=== PATIENT | female | born 1960 | race Caucasian/White ===

== ENCOUNTER 2018-03-02 10:55 | Outpatient (RCR) | payer MEDICARE, OTHER ==
[2018-01-13 11:23] LABS: BASOPHILS % (AUTO) 0 % (0-10); EOSINOPHILS # (AUTO) 0.2 10^3/uL (0.0-0.3); EOSINOPHILS % (AUTO) 4 % (0-10); HEMATOCRIT 35 % (35-52); HEMOGLOBIN 11.5 G/DL (11.5-16.0); LYMPHOCYTES # (AUTO) 1.6 X 10^3 (1.0-4.0); LYMPHOCYTES % (AUTO) 33 % (12-44); MEAN CORPUSCULAR HEMOGLOBIN 31 PG (25-34); MEAN CORPUSCULAR HGB CONC 33 G/DL (32-36); MEAN CORPUSCULAR VOLUME 95 FL (80-99); MEAN PLATELET VOLUME 9.3 FL (7.4-10.4); MONOCYTES # (AUTO) 0.2 X 10^3 (0.0-1.0); MONOCYTES % (AUTO) 5 % (0-12); NEUTROPHILS # (AUTO) 2.7 X 10^3 (1.8-7.8); NEUTROPHILS % (AUTO) 57 % (42-75); PLATELET COUNT 293 10^3/uL (130-400); RED CELL DISTRIBUTION WIDTH 15.2 % (10.0-14.5); WHITE BLOOD COUNT 4.7 10^3/uL (4.3-11.0)
[2018-01-13 11:49] LABS: ALANINE AMINOTRANSFERASE 19 U/L (0-55); ALBUMIN 4.5 GM/DL (3.2-4.5); ALKALINE PHOSPHATASE 91 U/L (40-136); BILIRUBIN,TOTAL 0.4 MG/DL (0.1-1.0); BUN/CREATININE RATIO 14; CALCIUM 9.5 MG/DL (8.5-10.1); CARBON DIOXIDE 23 MMOL/L (21-32); CHLORIDE 106 MMOL/L (98-107); CREATININE SERUM 0.85 MG/DL (0.60-1.30); GFR ESTIMATED > 60; GLUCOSE 95 MG/DL (70-105); POTASSIUM 4.1 MMOL/L (3.6-5.0); SODIUM 137 MMOL/L (135-145); TOTAL PROTEIN 7.8 GM/DL (6.4-8.2)
[2018-01-26 09:16] LABS: BASOPHILS % (AUTO) 1 % (0-10); EOSINOPHILS # (AUTO) 0.1 10^3/uL (0.0-0.3); EOSINOPHILS % (AUTO) 3 % (0-10); HEMATOCRIT 32 % (35-52); HEMOGLOBIN 10.5 G/DL (11.5-16.0); LYMPHOCYTES # (AUTO) 1.2 X 10^3 (1.0-4.0); LYMPHOCYTES % (AUTO) 47 % (12-44); MEAN CORPUSCULAR HEMOGLOBIN 32 PG (25-34); MEAN CORPUSCULAR HGB CONC 33 G/DL (32-36); MEAN CORPUSCULAR VOLUME 95 FL (80-99); MEAN PLATELET VOLUME 9.1 FL (7.4-10.4); MONOCYTES # (AUTO) 0.2 X 10^3 (0.0-1.0); MONOCYTES % (AUTO) 6 % (0-12); NEUTROPHILS # (AUTO) 1.1 X 10^3 (1.8-7.8); NEUTROPHILS % (AUTO) 43 % (42-75); PLATELET COUNT 169 10^3/uL (130-400); RED BLOOD COUNT 3.33 10^6/uL (4.35-5.85); RED CELL DISTRIBUTION WIDTH 15.9 % (10.0-14.5); WHITE BLOOD COUNT 2.6 10^3/uL (4.3-11.0)
[2018-01-26 09:35] LABS: ALANINE AMINOTRANSFERASE 15 U/L (0-55); ALBUMIN 4.2 GM/DL (3.2-4.5); ALKALINE PHOSPHATASE 77 U/L (40-136); BILIRUBIN,TOTAL 0.4 MG/DL (0.1-1.0); BUN/CREATININE RATIO 15; CALCIUM 9.5 MG/DL (8.5-10.1); CARBON DIOXIDE 23 MMOL/L (21-32); CHLORIDE 103 MMOL/L (98-107); CREATININE SERUM 0.94 MG/DL (0.60-1.30); GFR ESTIMATED > 60; GLUCOSE 103 MG/DL (70-105); POTASSIUM 3.7 MMOL/L (3.6-5.0); SODIUM 135 MMOL/L (135-145); TOTAL PROTEIN 7.3 GM/DL (6.4-8.2)
[2018-02-09 13:10] LABS: BASOPHILS % (AUTO) 1 % (0-10); EOSINOPHILS # (AUTO) 0.1 10^3/uL (0.0-0.3); EOSINOPHILS % (AUTO) 2 % (0-10); HEMATOCRIT 33 % (35-52); HEMOGLOBIN 11.1 G/DL (11.5-16.0); LYMPHOCYTES # (AUTO) 1.5 X 10^3 (1.0-4.0); LYMPHOCYTES % (AUTO) 37 % (12-44); MEAN CORPUSCULAR HEMOGLOBIN 32 PG (25-34); MEAN CORPUSCULAR HGB CONC 34 G/DL (32-36); MEAN CORPUSCULAR VOLUME 94 FL (80-99); MEAN PLATELET VOLUME 9.2 FL (7.4-10.4); MONOCYTES # (AUTO) 0.4 X 10^3 (0.0-1.0); MONOCYTES % (AUTO) 9 % (0-12); NEUTROPHILS % (AUTO) 51 % (42-75); PLATELET COUNT 263 10^3/uL (130-400); RED BLOOD COUNT 3.51 10^6/uL (4.35-5.85); RED CELL DISTRIBUTION WIDTH 17.2 % (10.0-14.5); WHITE BLOOD COUNT 3.9 10^3/uL (4.3-11.0)
[2018-02-09 13:30] LABS: ALANINE AMINOTRANSFERASE 18 U/L (0-55); ALBUMIN 4.5 GM/DL (3.2-4.5); ALKALINE PHOSPHATASE 65 U/L (40-136); BILIRUBIN,TOTAL 0.4 MG/DL (0.1-1.0); BUN/CREATININE RATIO 13; CALCIUM 9.4 MG/DL (8.5-10.1); CARBON DIOXIDE 19 MMOL/L (21-32); CHLORIDE 106 MMOL/L (98-107); CREATININE SERUM 0.84 MG/DL (0.60-1.30); GFR ESTIMATED > 60; GLUCOSE 99 MG/DL (70-105); POTASSIUM 3.7 MMOL/L (3.6-5.0); SODIUM 137 MMOL/L (135-145); TOTAL PROTEIN 7.8 GM/DL (6.4-8.2)
[~2018-03-02 10:55] MED LIST: FULVESTRANT 250 MG/5 ML SYR (CANCER CENTER) IM SCH
== END 2018-03-02 10:56 | disposition home or self-care (01) ==
LOC: ONC 10:55
PROVIDERS: ATTEND Internal Medicine Hematology & Oncology
DX: C50.111 Malignant neoplasm of central portion of right female breast (principal); C79.51 Secondary malignant neoplasm of bone; C78.6 Secondary malignant neoplasm of retroperitoneum and peritoneum; Z90.11 Acquired absence of right breast and nipple; Z90.79 Acquired absence of other genital organ(s); Z79.899 Other long term (current) drug therapy
CPT/HCPCS: 36415; 80053; 85025; 86300; 96402; 99213

== ENCOUNTER 2018-05-13 13:39 | Outpatient (RCR) | payer MEDICARE, OTHER ==
[2018-03-02 11:21] LABS: BASOPHILS % (AUTO) 1 % (0-10); EOSINOPHILS % (AUTO) 1 % (0-10); HEMATOCRIT 34 % (35-52); HEMOGLOBIN 10.9 G/DL (11.5-16.0); LYMPHOCYTES # (AUTO) 1.2 X 10^3 (1.0-4.0); LYMPHOCYTES % (AUTO) 46 % (12-44); MEAN CORPUSCULAR HEMOGLOBIN 31 PG (25-34); MEAN CORPUSCULAR HGB CONC 32 G/DL (32-36); MEAN CORPUSCULAR VOLUME 96 FL (80-99); MONOCYTES # (AUTO) 0.2 X 10^3 (0.0-1.0); MONOCYTES % (AUTO) 7 % (0-12); NEUTROPHILS # (AUTO) 1.1 X 10^3 (1.8-7.8); NEUTROPHILS % (AUTO) 45 % (42-75); PLATELET COUNT 204 10^3/uL (130-400); RED CELL DISTRIBUTION WIDTH 18.5 % (10.0-14.5); WHITE BLOOD COUNT 2.5 10^3/uL (4.3-11.0)
[2018-03-02 11:33] LABS: ALANINE AMINOTRANSFERASE 19 U/L (0-55); ALBUMIN 4.4 GM/DL (3.2-4.5); ALKALINE PHOSPHATASE 59 U/L (40-136); BILIRUBIN,TOTAL 0.4 MG/DL (0.1-1.0); BUN/CREATININE RATIO 14; CALCIUM 9.4 MG/DL (8.5-10.1); CARBON DIOXIDE 22 MMOL/L (21-32); CHLORIDE 106 MMOL/L (98-107); CREATININE SERUM 0.85 MG/DL (0.60-1.30); GFR ESTIMATED > 60; GLUCOSE 94 MG/DL (70-105); POTASSIUM 4.1 MMOL/L (3.6-5.0); SODIUM 137 MMOL/L (135-145); TOTAL PROTEIN 7.5 GM/DL (6.4-8.2)
[2018-04-09 10:16] LABS: BASOPHILS % (AUTO) 1 % (0-10); EOSINOPHILS # (AUTO) 0.1 10^3/uL (0.0-0.3); EOSINOPHILS % (AUTO) 2 % (0-10); HEMATOCRIT 32 % (35-52); HEMOGLOBIN 10.5 G/DL (11.5-16.0); LYMPHOCYTES # (AUTO) 1.5 X 10^3 (1.0-4.0); LYMPHOCYTES % (AUTO) 42 % (12-44); MEAN CORPUSCULAR HEMOGLOBIN 32 PG (25-34); MEAN CORPUSCULAR HGB CONC 33 G/DL (32-36); MEAN CORPUSCULAR VOLUME 96 FL (80-99); MEAN PLATELET VOLUME 9.1 FL (7.4-10.4); MONOCYTES # (AUTO) 0.5 X 10^3 (0.0-1.0); MONOCYTES % (AUTO) 13 % (0-12); NEUTROPHILS # (AUTO) 1.5 X 10^3 (1.8-7.8); NEUTROPHILS % (AUTO) 42 % (42-75); PLATELET COUNT 233 10^3/uL (130-400); RED CELL DISTRIBUTION WIDTH 18.5 % (10.0-14.5); WHITE BLOOD COUNT 3.6 10^3/uL (4.3-11.0)
[2018-04-09 10:45] LABS: ALANINE AMINOTRANSFERASE 14 U/L (0-55); ALBUMIN 4.2 GM/DL (3.2-4.5); ALKALINE PHOSPHATASE 47 U/L (40-136); BILIRUBIN,TOTAL 0.4 MG/DL (0.1-1.0); BUN/CREATININE RATIO 15; CALCIUM 9.6 MG/DL (8.5-10.1); CARBON DIOXIDE 24 MMOL/L (21-32); CREATININE SERUM 0.81 MG/DL (0.60-1.30); GFR ESTIMATED > 60; GLUCOSE 102 MG/DL (70-105); TOTAL PROTEIN 7.4 GM/DL (6.4-8.2)
[2018-04-09 11:10] LABS: CHLORIDE 104 MMOL/L (98-107); POTASSIUM 4.2 MMOL/L (3.6-5.0); SODIUM 136 MMOL/L (135-145)
[2018-04-30 10:11] LABS: BASOPHILS % (AUTO) 1 % (0-10); EOSINOPHILS # (AUTO) 0.1 10^3/uL (0.0-0.3); EOSINOPHILS % (AUTO) 4 % (0-10); HEMATOCRIT 31 % (35-52); HEMOGLOBIN 10.3 G/DL (11.5-16.0); LYMPHOCYTES # (AUTO) 1.1 X 10^3 (1.0-4.0); LYMPHOCYTES % (AUTO) 43 % (12-44); MEAN CORPUSCULAR HEMOGLOBIN 33 PG (25-34); MEAN CORPUSCULAR HGB CONC 33 G/DL (32-36); MEAN CORPUSCULAR VOLUME 98 FL (80-99); MEAN PLATELET VOLUME 9.2 FL (7.4-10.4); MONOCYTES # (AUTO) 0.2 X 10^3 (0.0-1.0); MONOCYTES % (AUTO) 7 % (0-12); NEUTROPHILS # (AUTO) 1.1 X 10^3 (1.8-7.8); NEUTROPHILS % (AUTO) 46 % (42-75); PLATELET COUNT 166 10^3/uL (130-400); RED CELL DISTRIBUTION WIDTH 17.4 % (10.0-14.5); WHITE BLOOD COUNT 2.5 10^3/uL (4.3-11.0)
[2018-04-30 10:30] LABS: ALBUMIN 4.3 GM/DL (3.2-4.5); BILIRUBIN,TOTAL 0.4 MG/DL (0.1-1.0); CALCIUM 9.7 MG/DL (8.5-10.1); TOTAL PROTEIN 7.2 GM/DL (6.4-8.2)
[2018-05-06 13:48] LABS: BASOPHILS # (AUTO) 0.1 10^3/uL (0.0-0.1); BASOPHILS % (AUTO) 1 % (0-10); EOSINOPHILS # (AUTO) 0.1 10^3/uL (0.0-0.3); EOSINOPHILS % (AUTO) 1 % (0-10); HEMATOCRIT 33 % (35-52); HEMOGLOBIN 10.8 G/DL (11.5-16.0); LYMPHOCYTES # (AUTO) 1.4 X 10^3 (1.0-4.0); LYMPHOCYTES % (AUTO) 40 % (12-44); MEAN CORPUSCULAR HEMOGLOBIN 33 PG (25-34); MEAN CORPUSCULAR HGB CONC 33 G/DL (32-36); MEAN CORPUSCULAR VOLUME 99 FL (80-99); MEAN PLATELET VOLUME 9.1 FL (7.4-10.4); MONOCYTES # (AUTO) 0.4 X 10^3 (0.0-1.0); MONOCYTES % (AUTO) 12 % (0-12); NEUTROPHILS # (AUTO) 1.6 X 10^3 (1.8-7.8); NEUTROPHILS % (AUTO) 46 % (42-75); PLATELET COUNT 200 10^3/uL (130-400); RED CELL DISTRIBUTION WIDTH 17.7 % (10.0-14.5); WHITE BLOOD COUNT 3.5 10^3/uL (4.3-11.0)
[~2018-05-13 13:39] MED LIST changes: +NS IV 1000 ML (CANCER CTR) 1,000 ML ONE
[2018-05-13 14:05] LABS: BASOPHILS % (AUTO) 1 % (0-10); EOSINOPHILS # (AUTO) 0.1 10^3/uL (0.0-0.3); EOSINOPHILS % (AUTO) 3 % (0-10); HEMATOCRIT 34 % (35-52); HEMOGLOBIN 11.1 G/DL (11.5-16.0); LYMPHOCYTES # (AUTO) 1.6 X 10^3 (1.0-4.0); LYMPHOCYTES % (AUTO) 36 % (12-44); MEAN CORPUSCULAR HEMOGLOBIN 33 PG (25-34); MEAN CORPUSCULAR HGB CONC 33 G/DL (32-36); MEAN CORPUSCULAR VOLUME 99 FL (80-99); MEAN PLATELET VOLUME 9.4 FL (7.4-10.4); MONOCYTES # (AUTO) 0.4 X 10^3 (0.0-1.0); MONOCYTES % (AUTO) 8 % (0-12); NEUTROPHILS # (AUTO) 2.3 X 10^3 (1.8-7.8); NEUTROPHILS % (AUTO) 52 % (42-75); PLATELET COUNT 248 10^3/uL (130-400); RED CELL DISTRIBUTION WIDTH 16.2 % (10.0-14.5); WHITE BLOOD COUNT 4.5 10^3/uL (4.3-11.0)
== END 2018-05-31 | disposition home or self-care (01) ==
LOC: ONC 13:39
PROVIDERS: ATTEND Internal Medicine Hematology & Oncology
DX: C50.111 Malignant neoplasm of central portion of right female breast (principal); C79.51 Secondary malignant neoplasm of bone; C78.6 Secondary malignant neoplasm of retroperitoneum and peritoneum; N39.0 Urinary tract infection, site not specified; I95.9 Hypotension, unspecified; D64.9 Anemia, unspecified; D72.819 Decreased white blood cell count, unspecified; B00.1 Herpesviral vesicular dermatitis; I10 Essential (primary) hypertension; E03.9 Hypothyroidism, unspecified; Z90.11 Acquired absence of right breast and nipple; Z90.79 Acquired absence of other genital organ(s); Z79.899 Other long term (current) drug therapy
CPT/HCPCS: 36415; 80053; 85025; 86300; 96360; 96361; 96402; 99213

== ENCOUNTER → 2018-09-01 | Outpatient (RCR) | payer MEDICARE, OTHER ==
[2018-06-03 14:16] LABS: BASOPHILS % (AUTO) 1 % (0-10); EOSINOPHILS # (AUTO) 0.1 10^3/uL (0.0-0.3); EOSINOPHILS % (AUTO) 3 % (0-10); HEMATOCRIT 33 % (35-52); LYMPHOCYTES # (AUTO) 1.2 X 10^3 (1.0-4.0); LYMPHOCYTES % (AUTO) 37 % (12-44); MEAN CORPUSCULAR HEMOGLOBIN 34 PG (25-34); MEAN CORPUSCULAR HGB CONC 34 G/DL (32-36); MEAN CORPUSCULAR VOLUME 100 FL (80-99); MEAN PLATELET VOLUME 9.5 FL (7.4-10.4); MONOCYTES # (AUTO) 0.1 X 10^3 (0.0-1.0); MONOCYTES % (AUTO) 4 % (0-12); NEUTROPHILS # (AUTO) 1.8 X 10^3 (1.8-7.8); NEUTROPHILS % (AUTO) 56 % (42-75); PLATELET COUNT 195 10^3/uL (130-400); RED CELL DISTRIBUTION WIDTH 15.6 % (10.0-14.5); WHITE BLOOD COUNT 3.1 10^3/uL (4.3-11.0)
[2018-06-03 14:37] LABS: ALANINE AMINOTRANSFERASE 15 U/L (0-55); ALBUMIN 4.3 GM/DL (3.2-4.5); ALKALINE PHOSPHATASE 47 U/L (40-136); BILIRUBIN,TOTAL 0.3 MG/DL (0.1-1.0); BUN/CREATININE RATIO 15; CALCIUM 9.4 MG/DL (8.5-10.1); CARBON DIOXIDE 23 MMOL/L (21-32); CHLORIDE 104 MMOL/L (98-107); CREATININE SERUM 0.85 MG/DL (0.60-1.30); GFR ESTIMATED > 60; GLUCOSE 94 MG/DL (70-105); POTASSIUM 4.1 MMOL/L (3.6-5.0); SODIUM 137 MMOL/L (135-145); TOTAL PROTEIN 7.3 GM/DL (6.4-8.2)
[2018-07-08 14:07] LABS: BASOPHILS # (AUTO) 0.1 10^3/uL (0.0-0.1); BASOPHILS % (AUTO) 1 % (0-10); EOSINOPHILS # (AUTO) 0.1 10^3/uL (0.0-0.3); EOSINOPHILS % (AUTO) 3 % (0-10); HEMATOCRIT 33 % (35-52); LYMPHOCYTES # (AUTO) 1.6 X 10^3 (1.0-4.0); LYMPHOCYTES % (AUTO) 45 % (12-44); MEAN CORPUSCULAR HEMOGLOBIN 34 PG (25-34); MEAN CORPUSCULAR HGB CONC 34 G/DL (32-36); MEAN CORPUSCULAR VOLUME 100 FL (80-99); MEAN PLATELET VOLUME 9.5 FL (7.4-10.4); MONOCYTES # (AUTO) 0.5 X 10^3 (0.0-1.0); MONOCYTES % (AUTO) 13 % (0-12); NEUTROPHILS # (AUTO) 1.3 X 10^3 (1.8-7.8); NEUTROPHILS % (AUTO) 38 % (42-75); PLATELET COUNT 205 10^3/uL (130-400); RED CELL DISTRIBUTION WIDTH 16.5 % (10.0-14.5); WHITE BLOOD COUNT 3.5 10^3/uL (4.3-11.0)
[2018-07-08 14:23] LABS: ALANINE AMINOTRANSFERASE 22 U/L (0-55); ALBUMIN 4.3 GM/DL (3.2-4.5); ALKALINE PHOSPHATASE 49 U/L (40-136); BILIRUBIN,TOTAL 0.3 MG/DL (0.1-1.0); BUN/CREATININE RATIO 17; CALCIUM 9.9 MG/DL (8.5-10.1); CARBON DIOXIDE 23 MMOL/L (21-32); CHLORIDE 105 MMOL/L (98-107); CREATININE SERUM 0.77 MG/DL (0.60-1.30); GFR ESTIMATED > 60; GLUCOSE 111 MG/DL (70-105); POTASSIUM 3.9 MMOL/L (3.6-5.0); SODIUM 137 MMOL/L (135-145); TOTAL PROTEIN 7.5 GM/DL (6.4-8.2)
[2018-07-29 14:01] LABS: BASOPHILS % (AUTO) 1 % (0-10); EOSINOPHILS % (AUTO) 1 % (0-10); HEMATOCRIT 31 % (35-52); HEMOGLOBIN 10.4 G/DL (11.5-16.0); LYMPHOCYTES # (AUTO) 1.2 X 10^3 (1.0-4.0); LYMPHOCYTES % (AUTO) 36 % (12-44); MEAN CORPUSCULAR HEMOGLOBIN 34 PG (25-34); MEAN CORPUSCULAR HGB CONC 33 G/DL (32-36); MEAN CORPUSCULAR VOLUME 101 FL (80-99); MONOCYTES # (AUTO) 0.1 X 10^3 (0.0-1.0); MONOCYTES % (AUTO) 4 % (0-12); NEUTROPHILS % (AUTO) 58 % (42-75); PLATELET COUNT 198 10^3/uL (130-400); RED CELL DISTRIBUTION WIDTH 16.1 % (10.0-14.5); WHITE BLOOD COUNT 3.4 10^3/uL (4.3-11.0)
[2018-07-29 14:18] LABS: ALANINE AMINOTRANSFERASE 17 U/L (0-55); ALBUMIN 4.2 GM/DL (3.2-4.5); ALKALINE PHOSPHATASE 62 U/L (40-136); BILIRUBIN,TOTAL 0.4 MG/DL (0.1-1.0); BUN/CREATININE RATIO 17; CALCIUM 9.6 MG/DL (8.5-10.1); CARBON DIOXIDE 21 MMOL/L (21-32); CHLORIDE 105 MMOL/L (98-107); CREATININE SERUM 0.87 MG/DL (0.60-1.30); GFR ESTIMATED > 60; GLUCOSE 125 MG/DL (70-105); POTASSIUM 4.1 MMOL/L (3.6-5.0); SODIUM 136 MMOL/L (135-145); TOTAL PROTEIN 7.4 GM/DL (6.4-8.2)
[2018-08-31 08:38] LABS: BASOPHILS # (AUTO) 0.1 10^3/uL (0.0-0.1); BASOPHILS % (AUTO) 2 % (0-10); EOSINOPHILS % (AUTO) 1 % (0-10); HEMATOCRIT 30 % (35-52); HEMOGLOBIN 10.1 G/DL (11.5-16.0); LYMPHOCYTES # (AUTO) 1.5 X 10^3 (1.0-4.0); LYMPHOCYTES % (AUTO) 53 % (12-44); MEAN CORPUSCULAR HEMOGLOBIN 34 PG (25-34); MEAN CORPUSCULAR HGB CONC 33 G/DL (32-36); MEAN CORPUSCULAR VOLUME 103 FL (80-99); MEAN PLATELET VOLUME 9.9 FL (7.4-10.4); MONOCYTES # (AUTO) 0.4 X 10^3 (0.0-1.0); MONOCYTES % (AUTO) 13 % (0-12); NEUTROPHILS # (AUTO) 0.9 X 10^3 (1.8-7.8); NEUTROPHILS % (AUTO) 32 % (42-75); PLATELET COUNT 159 10^3/uL (130-400); RED CELL DISTRIBUTION WIDTH 16.8 % (10.0-14.5); WHITE BLOOD COUNT 2.8 10^3/uL (4.3-11.0)
[2018-08-31 09:06] LABS: ALANINE AMINOTRANSFERASE 17 U/L (0-55); ALBUMIN 4.2 GM/DL (3.2-4.5); ALKALINE PHOSPHATASE 49 U/L (40-136); BILIRUBIN,TOTAL 0.3 MG/DL (0.1-1.0); BUN/CREATININE RATIO 14; CALCIUM 9.4 MG/DL (8.5-10.1); CARBON DIOXIDE 21 MMOL/L (21-32); CHLORIDE 106 MMOL/L (98-107); CREATININE SERUM 0.87 MG/DL (0.60-1.30); GFR ESTIMATED > 60; GLUCOSE 96 MG/DL (70-105); POTASSIUM 4.2 MMOL/L (3.6-5.0); SODIUM 137 MMOL/L (135-145); TOTAL PROTEIN 7.1 GM/DL (6.4-8.2)
[~2018-09-01] MED LIST changes: -NS IV 1000 ML (CANCER CTR) 1,000 ML ONE
== END | disposition home or self-care (01) ==
LOC: ONC 06-03 13:53
PROVIDERS: ATTEND Internal Medicine Hematology & Oncology
DX: Z51.0 Encounter for antineoplastic radiation therapy (principal); C50.111 Malignant neoplasm of central portion of right female breast; C79.51 Secondary malignant neoplasm of bone; C78.6 Secondary malignant neoplasm of retroperitoneum and peritoneum; Z90.11 Acquired absence of right breast and nipple; Z90.79 Acquired absence of other genital organ(s); Z79.899 Other long term (current) drug therapy
CPT/HCPCS: 36415; 77280; 77290; 77295; 77300; 77334; 80053; 85025; 86300; 96402; 99204; 99213

== ENCOUNTER → 2018-12-02 | Outpatient (RCR) | payer MEDICARE, OTHER ==
[2018-09-08 09:02] LABS: BASOPHILS # (AUTO) 0.1 10^3/uL (0.0-0.1); BASOPHILS % (AUTO) 2 % (0-10); EOSINOPHILS # (AUTO) 0.1 10^3/uL (0.0-0.3); EOSINOPHILS % (AUTO) 5 % (0-10); HEMATOCRIT 28 % (35-52); HEMOGLOBIN 9.2 G/DL (11.5-16.0); LYMPHOCYTES # (AUTO) 0.8 X 10^3 (1.0-4.0); LYMPHOCYTES % (AUTO) 32 % (12-44); MEAN CORPUSCULAR HEMOGLOBIN 34 PG (25-34); MEAN CORPUSCULAR HGB CONC 33 G/DL (32-36); MEAN CORPUSCULAR VOLUME 103 FL (80-99); MEAN PLATELET VOLUME 9.4 FL (7.4-10.4); MONOCYTES # (AUTO) 0.2 X 10^3 (0.0-1.0); MONOCYTES % (AUTO) 7 % (0-12); NEUTROPHILS # (AUTO) 1.3 X 10^3 (1.8-7.8); NEUTROPHILS % (AUTO) 55 % (42-75); PLATELET COUNT 201 10^3/uL (130-400); RED CELL DISTRIBUTION WIDTH 16.5 % (10.0-14.5); WHITE BLOOD COUNT 2.4 10^3/uL (4.3-11.0)
[2018-09-28 12:09] LABS: BASOPHILS # (AUTO) 0.1 10^3/uL (0.0-0.1); BASOPHILS % (AUTO) 1 % (0-10); EOSINOPHILS # (AUTO) 0.6 10^3/uL (0.0-0.3); EOSINOPHILS % (AUTO) 13 % (0-10); HEMATOCRIT 30 % (35-52); HEMOGLOBIN 9.7 G/DL (11.5-16.0); LYMPHOCYTES # (AUTO) 0.9 X 10^3 (1.0-4.0); LYMPHOCYTES % (AUTO) 19 % (12-44); MEAN CORPUSCULAR HEMOGLOBIN 33 PG (25-34); MEAN CORPUSCULAR HGB CONC 32 G/DL (32-36); MEAN CORPUSCULAR VOLUME 103 FL (80-99); MEAN PLATELET VOLUME 9.2 FL (7.4-10.4); MONOCYTES # (AUTO) 0.4 X 10^3 (0.0-1.0); MONOCYTES % (AUTO) 8 % (0-12); NEUTROPHILS # (AUTO) 2.6 X 10^3 (1.8-7.8); NEUTROPHILS % (AUTO) 59 % (42-75); PLATELET COUNT 266 10^3/uL (130-400); RED CELL DISTRIBUTION WIDTH 14.6 % (10.0-14.5); WHITE BLOOD COUNT 4.4 10^3/uL (4.3-11.0)
[2018-09-28 12:30] LABS: ALBUMIN 4.1 GM/DL (3.2-4.5); BILIRUBIN,TOTAL 0.3 MG/DL (0.1-1.0); CALCIUM 9.6 MG/DL (8.5-10.1); CREATININE SERUM 0.95 MG/DL (0.60-1.30); POTASSIUM 3.7 MMOL/L (3.6-5.0); TOTAL PROTEIN 7.2 GM/DL (6.4-8.2)
[2018-10-30 14:15] LABS: BASOPHILS % (AUTO) 1 % (0-10); EOSINOPHILS # (AUTO) 0.2 10^3/uL (0.0-0.3); EOSINOPHILS % (AUTO) 4 % (0-10); HEMATOCRIT 32 % (35-52); HEMOGLOBIN 10.4 G/DL (11.5-16.0); LYMPHOCYTES # (AUTO) 1.3 X 10^3 (1.0-4.0); LYMPHOCYTES % (AUTO) 32 % (12-44); MEAN CORPUSCULAR HEMOGLOBIN 33 PG (25-34); MEAN CORPUSCULAR HGB CONC 33 G/DL (32-36); MEAN CORPUSCULAR VOLUME 101 FL (80-99); MEAN PLATELET VOLUME 9.7 FL (7.4-10.4); MONOCYTES # (AUTO) 0.5 X 10^3 (0.0-1.0); MONOCYTES % (AUTO) 13 % (0-12); NEUTROPHILS # (AUTO) 2.1 X 10^3 (1.8-7.8); NEUTROPHILS % (AUTO) 51 % (42-75); PLATELET COUNT 270 10^3/uL (130-400); RED CELL DISTRIBUTION WIDTH 15.1 % (10.0-14.5); WHITE BLOOD COUNT 4.1 10^3/uL (4.3-11.0)
[2018-10-30 14:33] LABS: ALANINE AMINOTRANSFERASE 19 U/L (0-55); ALBUMIN 4.3 GM/DL (3.2-4.5); ALKALINE PHOSPHATASE 55 U/L (40-136); BILIRUBIN,TOTAL 0.4 MG/DL (0.1-1.0); BUN/CREATININE RATIO 13; CALCIUM 9.3 MG/DL (8.5-10.1); CARBON DIOXIDE 28 MMOL/L (21-32); CHLORIDE 105 MMOL/L (98-107); CREATININE SERUM 0.94 MG/DL (0.60-1.30); GFR ESTIMATED > 60; GLUCOSE 87 MG/DL (70-105); SODIUM 137 MMOL/L (135-145); TOTAL PROTEIN 7.7 GM/DL (6.4-8.2)
[2018-11-18 14:29] LABS: BASOPHILS % (AUTO) 0 % (0-10); EOSINOPHILS # (AUTO) 0.3 10^3/uL (0.0-0.3); EOSINOPHILS % (AUTO) 4 % (0-10); HEMATOCRIT 34 % (35-52); HEMOGLOBIN 10.9 G/DL (11.5-16.0); LYMPHOCYTES # (AUTO) 1.3 X 10^3 (1.0-4.0); LYMPHOCYTES % (AUTO) 18 % (12-44); MEAN CORPUSCULAR HEMOGLOBIN 31 PG (25-34); MEAN CORPUSCULAR HGB CONC 32 G/DL (32-36); MEAN CORPUSCULAR VOLUME 99 FL (80-99); MEAN PLATELET VOLUME 9.8 FL (7.4-10.4); MONOCYTES # (AUTO) 0.4 X 10^3 (0.0-1.0); MONOCYTES % (AUTO) 6 % (0-12); NEUTROPHILS # (AUTO) 5.1 X 10^3 (1.8-7.8); NEUTROPHILS % (AUTO) 72 % (42-75); PLATELET COUNT 291 10^3/uL (130-400); RED CELL DISTRIBUTION WIDTH 14.8 % (10.0-14.5)
[2018-11-18 14:52] LABS: ALBUMIN 4.4 GM/DL (3.2-4.5); BILIRUBIN,TOTAL 0.3 MG/DL (0.1-1.0); CALCIUM 9.4 MG/DL (8.5-10.1); POTASSIUM 3.6 MMOL/L (3.6-5.0); TOTAL PROTEIN 8.1 GM/DL (6.4-8.2)
[2018-12-02 15:40] LABS: BASOPHILS % (AUTO) 0 % (0-10); EOSINOPHILS # (AUTO) 0.1 10^3/uL (0.0-0.3); EOSINOPHILS % (AUTO) 1 % (0-10); HEMATOCRIT 33 % (35-52); HEMOGLOBIN 10.7 G/DL (11.5-16.0); LYMPHOCYTES # (AUTO) 1.5 X 10^3 (1.0-4.0); LYMPHOCYTES % (AUTO) 19 % (12-44); MEAN CORPUSCULAR HEMOGLOBIN 31 PG (25-34); MEAN CORPUSCULAR HGB CONC 33 G/DL (32-36); MEAN CORPUSCULAR VOLUME 94 FL (80-99); MEAN PLATELET VOLUME 9.7 FL (7.4-10.4); MONOCYTES # (AUTO) 0.7 X 10^3 (0.0-1.0); MONOCYTES % (AUTO) 9 % (0-12); NEUTROPHILS # (AUTO) 5.6 X 10^3 (1.8-7.8); NEUTROPHILS % (AUTO) 71 % (42-75); PLATELET COUNT 241 10^3/uL (130-400); RED CELL DISTRIBUTION WIDTH 14.6 % (10.0-14.5); WHITE BLOOD COUNT 7.9 10^3/uL (4.3-11.0)
[2018-12-02 15:58] LABS: ALBUMIN 4.3 GM/DL (3.2-4.5); BILIRUBIN,TOTAL 0.3 MG/DL (0.1-1.0); CALCIUM 9.8 MG/DL (8.5-10.1); CREATININE SERUM 1.36 MG/DL (0.60-1.30); POTASSIUM 3.5 MMOL/L (3.6-5.0); TOTAL PROTEIN 7.6 GM/DL (6.4-8.2)
== END | disposition home or self-care (01) ==
LOC: ONC 09-03 08:37
PROVIDERS: ATTEND Internal Medicine Hematology & Oncology
DX: Z51.0 Encounter for antineoplastic radiation therapy (principal); C50.111 Malignant neoplasm of central portion of right female breast; C79.51 Secondary malignant neoplasm of bone; C78.6 Secondary malignant neoplasm of retroperitoneum and peritoneum; Z90.11 Acquired absence of right breast and nipple; Z90.79 Acquired absence of other genital organ(s); Z79.899 Other long term (current) drug therapy
CPT/HCPCS: 36415; 77336; 77417; 80053; 85025; 86300; 96401; 96402; 99213

== ENCOUNTER 2019-03-01 14:00 | Outpatient (RCR) | payer MEDICARE, OTHER ==
[2018-12-09 13:20] LABS: BASOPHILS % (AUTO) 0 % (0-10); EOSINOPHILS # (AUTO) 0.3 10^3/uL (0.0-0.3); EOSINOPHILS % (AUTO) 7 % (0-10); HEMATOCRIT 35 % (35-52); HEMOGLOBIN 11.1 G/DL (11.5-16.0); LYMPHOCYTES % (AUTO) 20 % (12-44); MEAN CORPUSCULAR HEMOGLOBIN 30 PG (25-34); MEAN CORPUSCULAR HGB CONC 32 G/DL (32-36); MEAN CORPUSCULAR VOLUME 94 FL (80-99); MEAN PLATELET VOLUME 9.6 FL (7.4-10.4); MONOCYTES # (AUTO) 0.4 X 10^3 (0.0-1.0); MONOCYTES % (AUTO) 9 % (0-12); NEUTROPHILS # (AUTO) 3.1 X 10^3 (1.8-7.8); NEUTROPHILS % (AUTO) 64 % (42-75); PLATELET COUNT 269 10^3/uL (130-400); RED CELL DISTRIBUTION WIDTH 14.8 % (10.0-14.5); WHITE BLOOD COUNT 4.9 10^3/uL (4.3-11.0)
[2018-12-09 13:35] LABS: BUN/CREATININE RATIO 18; CALCIUM 9.3 MG/DL (8.5-10.1); CARBON DIOXIDE 22 MMOL/L (21-32); CHLORIDE 106 MMOL/L (98-107); CREATININE SERUM 0.89 MG/DL (0.60-1.30); GFR ESTIMATED > 60; GLUCOSE 123 MG/DL (70-105); POTASSIUM 4.1 MMOL/L (3.6-5.0); SODIUM 138 MMOL/L (135-145)
[2018-12-16 13:46] LABS: BASOPHILS % (AUTO) 0 % (0-10); EOSINOPHILS # (AUTO) 0.1 10^3/uL (0.0-0.3); EOSINOPHILS % (AUTO) 2 % (0-10); HEMATOCRIT 33 % (35-52); HEMOGLOBIN 10.6 G/DL (11.5-16.0); LYMPHOCYTES # (AUTO) 1.1 X 10^3 (1.0-4.0); LYMPHOCYTES % (AUTO) 21 % (12-44); MEAN CORPUSCULAR HEMOGLOBIN 29 PG (25-34); MEAN CORPUSCULAR HGB CONC 32 G/DL (32-36); MEAN CORPUSCULAR VOLUME 91 FL (80-99); MEAN PLATELET VOLUME 9.5 FL (7.4-10.4); MONOCYTES # (AUTO) 0.4 X 10^3 (0.0-1.0); MONOCYTES % (AUTO) 7 % (0-12); NEUTROPHILS # (AUTO) 3.8 X 10^3 (1.8-7.8); NEUTROPHILS % (AUTO) 70 % (42-75); PLATELET COUNT 226 10^3/uL (130-400); RED CELL DISTRIBUTION WIDTH 15.1 % (10.0-14.5); WHITE BLOOD COUNT 5.5 10^3/uL (4.3-11.0)
[2018-12-16 14:12] LABS: ALBUMIN 4.1 GM/DL (3.2-4.5); BILIRUBIN,TOTAL 0.3 MG/DL (0.1-1.0); CALCIUM 9.5 MG/DL (8.5-10.1); CREATININE SERUM 1.03 MG/DL (0.60-1.30); POTASSIUM 3.7 MMOL/L (3.6-5.0); TOTAL PROTEIN 7.5 GM/DL (6.4-8.2)
[2018-12-29 09:14] LABS: BASOPHILS % (AUTO) 0 % (0-10); EOSINOPHILS # (AUTO) 0.1 10^3/uL (0.0-0.3); EOSINOPHILS % (AUTO) 3 % (0-10); HEMATOCRIT 30 % (35-52); HEMOGLOBIN 9.7 G/DL (11.5-16.0); LYMPHOCYTES # (AUTO) 1.2 X 10^3 (1.0-4.0); LYMPHOCYTES % (AUTO) 29 % (12-44); MEAN CORPUSCULAR HEMOGLOBIN 29 PG (25-34); MEAN CORPUSCULAR HGB CONC 32 G/DL (32-36); MEAN CORPUSCULAR VOLUME 89 FL (80-99); MEAN PLATELET VOLUME 9.6 FL (7.4-10.4); MONOCYTES # (AUTO) 0.3 X 10^3 (0.0-1.0); MONOCYTES % (AUTO) 8 % (0-12); NEUTROPHILS # (AUTO) 2.5 X 10^3 (1.8-7.8); NEUTROPHILS % (AUTO) 60 % (42-75); PLATELET COUNT 218 10^3/uL (130-400); RED CELL DISTRIBUTION WIDTH 15.3 % (10.0-14.5); WHITE BLOOD COUNT 4.2 10^3/uL (4.3-11.0)
[2018-12-29 09:36] LABS: ALBUMIN 4.1 GM/DL (3.2-4.5); BILIRUBIN,TOTAL 0.4 MG/DL (0.1-1.0); CALCIUM 8.9 MG/DL (8.5-10.1); CREATININE SERUM 1.01 MG/DL (0.60-1.30); POTASSIUM 3.8 MMOL/L (3.6-5.0)
[2019-01-13 13:56] LABS: BASOPHILS % (AUTO) 0 % (0-10); EOSINOPHILS # (AUTO) 0.2 10^3/uL (0.0-0.3); EOSINOPHILS % (AUTO) 5 % (0-10); HEMATOCRIT 31 % (35-52); HEMOGLOBIN 9.8 G/DL (11.5-16.0); LYMPHOCYTES # (AUTO) 1.2 X 10^3 (1.0-4.0); LYMPHOCYTES % (AUTO) 25 % (12-44); MEAN CORPUSCULAR HEMOGLOBIN 27 PG (25-34); MEAN CORPUSCULAR HGB CONC 32 G/DL (32-36); MEAN CORPUSCULAR VOLUME 86 FL (80-99); MEAN PLATELET VOLUME 9.3 FL (7.4-10.4); MONOCYTES # (AUTO) 0.5 X 10^3 (0.0-1.0); MONOCYTES % (AUTO) 11 % (0-12); NEUTROPHILS # (AUTO) 2.7 X 10^3 (1.8-7.8); NEUTROPHILS % (AUTO) 58 % (42-75); PLATELET COUNT 263 10^3/uL (130-400); RED CELL DISTRIBUTION WIDTH 15.7 % (10.0-14.5); WHITE BLOOD COUNT 4.6 10^3/uL (4.3-11.0)
[2019-01-13 14:17] LABS: ALANINE AMINOTRANSFERASE 30 U/L (0-55); ALBUMIN 4.2 GM/DL (3.2-4.5); ALKALINE PHOSPHATASE 63 U/L (40-136); BILIRUBIN,TOTAL 0.3 MG/DL (0.1-1.0); BUN/CREATININE RATIO 15; CALCIUM 9.4 MG/DL (8.5-10.1); CARBON DIOXIDE 23 MMOL/L (21-32); CHLORIDE 106 MMOL/L (98-107); CREATININE SERUM 0.91 MG/DL (0.60-1.30); GFR ESTIMATED > 60; GLUCOSE 115 MG/DL (70-105); POTASSIUM 3.7 MMOL/L (3.6-5.0); SODIUM 138 MMOL/L (135-145); TOTAL PROTEIN 7.4 GM/DL (6.4-8.2)
[2019-01-27 14:12] LABS: BASOPHILS % (AUTO) 0 % (0-10); EOSINOPHILS # (AUTO) 0.3 10^3/uL (0.0-0.3); EOSINOPHILS % (AUTO) 5 % (0-10); HEMATOCRIT 29 % (35-52); HEMOGLOBIN 9.3 G/DL (11.5-16.0); LYMPHOCYTES % (AUTO) 20 % (12-44); MEAN CORPUSCULAR HEMOGLOBIN 27 PG (25-34); MEAN CORPUSCULAR HGB CONC 32 G/DL (32-36); MEAN CORPUSCULAR VOLUME 84 FL (80-99); MEAN PLATELET VOLUME 9.3 FL (7.4-10.4); MONOCYTES # (AUTO) 0.4 X 10^3 (0.0-1.0); MONOCYTES % (AUTO) 8 % (0-12); NEUTROPHILS # (AUTO) 3.5 X 10^3 (1.8-7.8); NEUTROPHILS % (AUTO) 68 % (42-75); PLATELET COUNT 252 10^3/uL (130-400); RED CELL DISTRIBUTION WIDTH 15.7 % (10.0-14.5); WHITE BLOOD COUNT 5.2 10^3/uL (4.3-11.0)
[2019-01-27 14:29] LABS: ALBUMIN 4.1 GM/DL (3.2-4.5); BILIRUBIN,TOTAL 0.3 MG/DL (0.1-1.0); CALCIUM 9.2 MG/DL (8.5-10.1); CREATININE SERUM 1.03 MG/DL (0.60-1.30); POTASSIUM 3.7 MMOL/L (3.6-5.0); TOTAL PROTEIN 7.1 GM/DL (6.4-8.2)
[2019-02-10 13:25] LABS: BASOPHILS % (AUTO) 0 % (0-10); EOSINOPHILS # (AUTO) 0.2 10^3/uL (0.0-0.3); EOSINOPHILS % (AUTO) 4 % (0-10); HEMATOCRIT 31 % (35-52); HEMOGLOBIN 9.7 G/DL (11.5-16.0); LYMPHOCYTES # (AUTO) 1.2 X 10^3 (1.0-4.0); LYMPHOCYTES % (AUTO) 24 % (12-44); MEAN CORPUSCULAR HEMOGLOBIN 26 PG (25-34); MEAN CORPUSCULAR HGB CONC 32 G/DL (32-36); MEAN CORPUSCULAR VOLUME 83 FL (80-99); MEAN PLATELET VOLUME 9.4 FL (7.4-10.4); MONOCYTES # (AUTO) 0.4 X 10^3 (0.0-1.0); MONOCYTES % (AUTO) 8 % (0-12); NEUTROPHILS % (AUTO) 63 % (42-75); PLATELET COUNT 261 10^3/uL (130-400); RED CELL DISTRIBUTION WIDTH 15.6 % (10.0-14.5); WHITE BLOOD COUNT 4.8 10^3/uL (4.3-11.0)
[2019-02-10 13:46] LABS: ALBUMIN 4.3 GM/DL (3.2-4.5); BILIRUBIN,TOTAL 0.4 MG/DL (0.1-1.0); CALCIUM 9.2 MG/DL (8.5-10.1); CREATININE SERUM 0.99 MG/DL (0.60-1.30); POTASSIUM 3.7 MMOL/L (3.6-5.0); TOTAL PROTEIN 7.5 GM/DL (6.4-8.2)
[2019-02-24 14:29] LABS: BASOPHILS % (AUTO) 0 % (0-10); EOSINOPHILS % (AUTO) 0 % (0-10); HEMATOCRIT 31 % (35-52); HEMOGLOBIN 9.8 G/DL (11.5-16.0); LYMPHOCYTES # (AUTO) 0.8 X 10^3 (1.0-4.0); LYMPHOCYTES % (AUTO) 8 % (12-44); MEAN CORPUSCULAR HEMOGLOBIN 26 PG (25-34); MEAN CORPUSCULAR HGB CONC 32 G/DL (32-36); MEAN CORPUSCULAR VOLUME 81 FL (80-99); MONOCYTES # (AUTO) 0.7 X 10^3 (0.0-1.0); MONOCYTES % (AUTO) 7 % (0-12); NEUTROPHILS # (AUTO) 8.3 X 10^3 (1.8-7.8); NEUTROPHILS % (AUTO) 85 % (42-75); PLATELET COUNT 370 10^3/uL (130-400); RED CELL DISTRIBUTION WIDTH 16.8 % (10.0-14.5); WHITE BLOOD COUNT 9.8 10^3/uL (4.3-11.0)
[2019-02-24 14:49] LABS: ALANINE AMINOTRANSFERASE 37 U/L (0-55); ALBUMIN 4.5 GM/DL (3.2-4.5); ALKALINE PHOSPHATASE 72 U/L (40-136); BILIRUBIN,TOTAL 0.2 MG/DL (0.1-1.0); BUN/CREATININE RATIO 18; CALCIUM 9.2 MG/DL (8.5-10.1); CARBON DIOXIDE 22 MMOL/L (21-32); CHLORIDE 101 MMOL/L (98-107); CREATININE SERUM 0.91 MG/DL (0.60-1.30); GFR ESTIMATED > 60; GLUCOSE 137 MG/DL (70-105); POTASSIUM 3.7 MMOL/L (3.6-5.0); SODIUM 134 MMOL/L (135-145); TOTAL PROTEIN 7.5 GM/DL (6.4-8.2)
[~2019-03-01 14:00] MED LIST changes: +DENOSUMAB 120 MG/1.7 ML (XGEVA) SQ SCH
[2019-03-01 14:30] LABS: BASOPHILS % (AUTO) 0 % (0-10); EOSINOPHILS % (AUTO) 0 % (0-10); HEMATOCRIT 32 % (35-52); HEMOGLOBIN 10.1 G/DL (11.5-16.0); LYMPHOCYTES # (AUTO) 0.8 X 10^3 (1.0-4.0); LYMPHOCYTES % (AUTO) 11 % (12-44); MEAN CORPUSCULAR HEMOGLOBIN 26 PG (25-34); MEAN CORPUSCULAR HGB CONC 32 G/DL (32-36); MEAN CORPUSCULAR VOLUME 81 FL (80-99); MEAN PLATELET VOLUME 8.9 FL (7.4-10.4); MONOCYTES # (AUTO) 0.5 X 10^3 (0.0-1.0); MONOCYTES % (AUTO) 6 % (0-12); NEUTROPHILS # (AUTO) 6.1 X 10^3 (1.8-7.8); NEUTROPHILS % (AUTO) 83 % (42-75); PLATELET COUNT 337 10^3/uL (130-400); RED CELL DISTRIBUTION WIDTH 16.7 % (10.0-14.5); WHITE BLOOD COUNT 7.4 10^3/uL (4.3-11.0)
== END 2019-03-09 | disposition home or self-care (01) ==
LOC: ONC 14:00
PROVIDERS: ATTEND Internal Medicine Hematology & Oncology
DX: C50.111 Malignant neoplasm of central portion of right female breast (principal); C79.51 Secondary malignant neoplasm of bone; C78.6 Secondary malignant neoplasm of retroperitoneum and peritoneum; Z90.11 Acquired absence of right breast and nipple; Z90.79 Acquired absence of other genital organ(s); Z79.899 Other long term (current) drug therapy
CPT/HCPCS: 36415; 80048; 80053; 82274; 82728; 83540; 85025; 86300; 96372; 96402; 99213

== ENCOUNTER → 2019-03-23 | Outpatient (CLI) | payer MEDICARE ==
--- NOTE | 2019-03-23 16:34 | Diagnostic Imaging Report ---
PROCEDURE: MR imaging of the brain with and without contrast. TECHNIQUE: Multiplanar, multisequence MR imaging of the brain was performed with and without contrast. INDICATION: Right breast carcinoma. Patient complains of dizziness and headaches. COMPARISON: No prior MRI brain studies available for comparison. FINDINGS: Ventricular size and sulcal pattern are normal. There is a focus of increased T2 and FLAIR signal within the central belle. This area measures approximately 9 mm. No diffusion restriction at this location or elsewhere in the brain is identified. The normal expected flow-voids within the carotid siphons are seen. There is no abnormal enhancement following contrast administration. There is no hemorrhage detected. The corpus callosum is unremarkable. The sella and parasellar structures are unremarkable. No periventricular or subcortical white matter signal is detected. IMPRESSION: There is a rounded area of increased T2 and FLAIR signal within the central belle, without diffusion restriction or abnormal enhancement. Exact etiology is indeterminate. This could potentially be secondary to demyelination. A metastatic lesion would be unlikely due to absence of contrast enhancement. Low-grade neoplastic process such as glioma cannot be entirely excluded. Short interval follow-up with repeat MRI brain in 4-6 weeks would be recommended. Earlier imaging could be performed if symptomatology progresses or changes. Dictated by: Dictated on workstation # [id number]
== END ==
LOC: RAD 14:52
PROVIDERS: ATTEND Internal Medicine Hematology & Oncology
DX: C50.311 Malignant neoplasm of lower-inner quadrant of right female breast (principal); C79.51 Secondary malignant neoplasm of bone; R51 Headache
CPT/HCPCS: 70553

== ENCOUNTER → 2019-03-30 | Outpatient (CLI) | payer MEDICARE ==
[~2019-03-30] MED LIST changes: -DENOSUMAB 120 MG/1.7 ML (XGEVA) SQ SCH; -FULVESTRANT 250 MG/5 ML SYR (CANCER CENTER) IM SCH; +GADOBUTROL 7.5 MMOL/7.5 ML (GADAVIST) VIAL IV ONE
--- NOTE | 2019-03-30 14:45 | Diagnostic Imaging Report ---
INDICATION: Breast cancer. Study is performed for restaging. TECHNIQUE: Serum blood glucose level at the time of injection is 99 mg/dL. The patient was administered 13.1 mCi F-18 FDG intravenously in the left antecubital location and PET imaging was performed from the top of the skull to mid thighs. Noncontrast CT was also performed for attenuation correction and anatomic correlation. COMPARISON: Patient's outside PET/CT from 10/19/2018 were submitted but are of very limited utility since these cannot be compared on dedicated PET workstation. Comparison is made with outside report from [facility] performed 10/19/2018 and 07/20/2018. FINDINGS: There is symmetric activity throughout the brain. Soft tissues of the neck are unremarkable. Postoperative changes of right mastectomy are noted. No mediastinal or hilar hypermetabolism is seen. No pulmonary parenchymal hypermetabolism is identified. Abdomen and pelvis demonstrate physiologic activity within the gastrointestinal and genitourinary tract. Patient has developed moderate abdominal and pelvic ascites. There appears to be some mild hydronephrosis of the left kidney, etiology indeterminate. There is also benign-appearing cyst in the right liver dome. There are several osseous regions of hypermetabolism, in particular in the mid thoracic spine as well as the right aspect of T12 vertebral body. There is some uptake in the posterior right acetabulum as well as the proximal right femur. Proximal right femur SUV max is approximately 7.7. SUV max involving T12 vertebral body is approximately 4.9. There are multiple areas of sclerosis throughout the thoracic and lumbar spine as well as pelvis. Prior report did describe left iliac bone lesion. Only very minimal low level activity is seen at this location. Prior report also described upper sternal bone lesion. Very minimal uptake in the upper sternum is identified on today's study. Prior report described mild uptake in the right lamina of T2. Very minimal uptake is seen on today's study at this location. IMPRESSION: 1. Abnormal uptake involving mid and lower thoracic vertebral bodies as well as the right hip and acetabulum, suspicious for osseous metastatic disease. Additional areas of sclerosis throughout the thoracic and lumbar spine and bony pelvis is seen on the conventional CT portion of the exam suggestive of osseous metastatic disease. 2. Development of abdominal and pelvic ascites. Correlation with conventional CT abdomen and pelvis would be useful to evaluate for potential peritoneal carcinomatosis. Left-sided hydronephrosis is noted, etiology indeterminate. Dictated by: Dictated on workstation # [id number]
== END ==
LOC: RAD 10:26
PROVIDERS: ATTEND Internal Medicine Hematology & Oncology
DX: C50.911 Malignant neoplasm of unspecified site of right female breast (principal); C79.51 Secondary malignant neoplasm of bone; R42 Dizziness and giddiness; R18.8 Other ascites

== ENCOUNTER → 2019-04-02 | Outpatient (CLI) | payer MEDICARE ==
[~2019-04-02] MED LIST changes: +BARIUM SUSPENSION 2.1% (VANILLA SILQ) 450 ML PO ONE; +CATHETER FLUSH 10 ML SYR IV PRN; -GADOBUTROL 7.5 MMOL/7.5 ML (GADAVIST) VIAL IV ONE; +HOLD METFORMIN - RECEIVED CONTRAST 20 ML VIAL IV SCH; +IOHEXOL 350 MG/ML 100 ML (OMNIPAQUE 350) VIAL IV ONE; +NS 100 ML (IVPB) BAG IV ONE
--- NOTE | 2019-04-02 13:55 | Diagnostic Imaging Report ---
PROCEDURE: CT abdomen and pelvis with contrast. TECHNIQUE: Multiple contiguous axial images were obtained through the abdomen and pelvis after administration of intravenous contrast. Auto Exposure Controls were utilized during the CT exam to meet ALARA standards for radiation dose reduction. INDICATION: Right breast cancer. Correlation is made with recent PET/CT study from 03/30/2019 and prior PET/CT from 10/19/2018. Minimal densities in the lung bases are noted, nonspecific or perhaps minimal subsegmental atelectasis. Liver again demonstrates multiple low densities, most of which are too small to characterize. The dominant lesion in the dome of the right lobe is consistent with a cyst. Gallbladder is unremarkable. There is no biliary ductal dilatation. The pancreas and spleen are unremarkable. There is perihepatic and perisplenic ascites. No adrenal mass is detected. The right kidney is unremarkable. The left kidney demonstrates hydronephrosis. There is small amount of contrast excreted into the dilated left renal collecting system but no contrast within the left ureter is seen. There is some slight hyperdensity to the proximal left ureter. Aorta is non-aneurysmal. Free fluid in the abdomen and pelvis is noted. There appears to be some slight enhancement to the peritoneum. No definite nodularity or evidence of peritoneal implants are detected. Minimal infiltration of the omentum anteriorly is seen but no significant omental caking is identified. Bowel loops are normal caliber. There is no obstruction. Bladder is unremarkable. No definite abdominal or pelvic lymphadenopathy is seen. Bony structures again demonstrate numerous osteolytic and osteoblastic lesions throughout the lower thoracic and lumbar spine as well as the bony pelvis and proximal femora consistent with osseous metastatic disease. IMPRESSION: 1. Ascites with some questionable enhancement to the peritoneum. Findings do raise a question of peritoneal carcinomatosis although no definite peritoneal implants are seen. There is some questionable minimal infiltration of the greater omentum but no obvious omental caking is identified. There does appear to be hydronephrosis of the left kidney with findings consistent with left ureteral obstruction, perhaps by this process. Retrograde pyelography may be useful for further evaluation to further evaluate the left ureter. 2. Osseous metastatic disease. Dictated by: Dictated on workstation # [id number]
== END ==
LOC: RAD 12:34
PROVIDERS: ATTEND Internal Medicine Hematology & Oncology
DX: C50.311 Malignant neoplasm of lower-inner quadrant of right female breast (principal); C79.51 Secondary malignant neoplasm of bone; C78.6 Secondary malignant neoplasm of retroperitoneum and peritoneum; R18.8 Other ascites
CPT/HCPCS: 74177

== ENCOUNTER 2019-04-13 19:00 | Emergency (ER) | payer MEDICARE, OTHER ==
[~2019-04-13] VITALS: Ht 166 cm; Wt 73.4 kg
[2019-04-13] MEDS ORDERED: fentaNYL INJECTION 100 MCG/2 ML AMP IVP ONE (19:30)
[2019-04-13 19:34] LABS: BASOPHILS % (AUTO) 0 % (0-10); EOSINOPHILS # (AUTO) 0.2 10^3/uL (0.0-0.3); EOSINOPHILS % (AUTO) 2 % (0-10); HEMATOCRIT 29 % (35-52); HEMOGLOBIN 9.2 G/DL (11.5-16.0); LYMPHOCYTES # (AUTO) 0.9 X 10^3 (1.0-4.0); LYMPHOCYTES % (AUTO) 11 % (12-44); MEAN CORPUSCULAR HEMOGLOBIN 25 PG (25-34); MEAN CORPUSCULAR HGB CONC 32 G/DL (32-36); MEAN CORPUSCULAR VOLUME 78 FL (80-99); MEAN PLATELET VOLUME 8.7 FL (7.4-10.4); MONOCYTES # (AUTO) 0.6 X 10^3 (0.0-1.0); MONOCYTES % (AUTO) 7 % (0-12); NEUTROPHILS # (AUTO) 6.8 X 10^3 (1.8-7.8); NEUTROPHILS % (AUTO) 80 % (42-75); PLATELET COUNT 496 10^3/uL (130-400); RED CELL DISTRIBUTION WIDTH 17.4 % (10.0-14.5); WHITE BLOOD COUNT 8.5 10^3/uL (4.3-11.0)
[2019-04-13 19:54] LABS: ALANINE AMINOTRANSFERASE 13 U/L (0-55); ALBUMIN 3.5 GM/DL (3.2-4.5); ALKALINE PHOSPHATASE 61 U/L (40-136); BILIRUBIN,TOTAL 0.3 MG/DL (0.1-1.0); BUN/CREATININE RATIO 13; CARBON DIOXIDE 19 MMOL/L (21-32); CHLORIDE 103 MMOL/L (98-107); CREATININE SERUM 0.78 MG/DL (0.60-1.30); GFR ESTIMATED > 60; GLUCOSE 90 MG/DL (70-105); LIPASE 15 U/L (8-78); POTASSIUM 3.6 MMOL/L (3.6-5.0); SODIUM 132 MMOL/L (135-145); TOTAL PROTEIN 6.7 GM/DL (6.4-8.2)
--- NOTE | 2019-04-13 20:16 | Diagnostic Imaging Report ---
INDICATION: Right flank pain EXAMINATION: Two-view chest 04/13/2019 FINDINGS: There is a density in the right mid lung laterally. It could be due to a healing fracture seen on recent PET scan along a right anterior rib. There is a calcified granuloma at the left lung base. There are no focal infiltrates or effusions. Heart and pulmonary vasculature grossly unremarkable. Diffuse increased density throughout the osseous structures of the spine consistent with the metastatic disease seen on previous PET/CT. IMPRESSION: 1. Multiple chronic changes including diffuse osseous metastatic disease and healing fracture of the right rib. No acute process appreciated at this time. Dictated by: Dictated on workstation # [id number]
--- NOTE | 2019-04-13 20:25 | Diagnostic Imaging Report ---
INDICATION: Right flank pain. History of breast cancer and metastatic disease EXAMINATION: Abdomen dated 04/13/2019 FINDINGS: Scattered sclerotic area is noted throughout the visualized osseous structures consistent with the known history of metastatic disease. Scoliotic deformity of the spine is also seen. There is no free air beneath the diaphragm. There are clips in the right abdomen and in the pelvis. No dilated loops of bowel. IMPRESSION: 1. Incidental findings of metastatic disease as above with a nonobstructive bowel gas pattern. Dictated by: Dictated on workstation # [id number]
[2019-04-13 21:06] LABS: CLARITY,URINE CLEAR; COLOR,URINE YELLOW; GLUCOSE, URINE (UA) NEGATIVE (NEGATIVE); KETONES,URINE 3+ (NEGATIVE); LEUKOCYTE ESTERASE ,URINE TRACE (NEGATIVE); NITRITE,URINE NEGATIVE (NEGATIVE); PROTEIN,URINE TRACE (NEGATIVE)
[2019-04-13 21:18] LABS: BACTERIA,URINE FEW /HPF
[2019-04-13 21:36] LABS: BILIRUBIN,URINE 1+ (NEGATIVE)
[2019-04-13] MEDS ORDERED: NS IV 1000 ML 1,000 ML IV ONE (21:43)
--- NOTE | 2019-04-13 22:32 | ED Abdominal Pain ---
General Chief Complaint: Abdominal/GI Problems Stated Complaint: ABD PAIN Nursing Triage Note: C/O RIGHT UPPER ABDOMINAL PAIN, "FEELS LIKE A VICE SQUEEZING THROUGH TO MY BACK" Sepsis Screen: No Definite Risk Source of Information: Patient Exam Limitations: No Limitations History of Present Illness Date Seen by Provider: Apr 13, 2019 Time Seen by Provider: 19:07 Initial Comments This 59-year-old woman presents to the emergency room accompanied by her with complaints of right upper quadrant pain, abdominal distention, and pain in the right back and right shoulder. She has active metastatic breast cancer with apparent lesions in the thoracic spine and right hip based on recent PET scan. She also reports a prior history of gallbladder problems. Pain has been intermittent over the last few days. It seemed to start on Friday. She reports having a temperature of 100.6 at that time but fever seemed to resolve and has not returned. She then had worsening pain on Friday night and then again on Friday morning. Pain then returned tonight. It seems to be worse with eating. She denies any nausea or vomiting but she does have diarrhea. She denies any blood in her stools. She has had no urinary changes. However, she does appear to have ureteral obstruction on the left and has a pending appointment with urology on . Her oncologist is Dr. Stone. She has been off chemotherapy for about a month. Her primary care provider is Fady Orellana in [place]. Patient also reports she has history of pancreatitis. Allergies and Home Medications Allergies Coded Allergies: aspirin (Verified Allergy, Unknown, 01/13/18) prochlorperazine (Verified Allergy, Unknown, 01/13/18) Patient Home Medication List Home Medication List Reviewed: Yes Review of Systems Review of Systems Constitutional: see HPI EENTM: No Symptoms Reported Respiratory: No Symptoms Reported Cardiovascular: No Symptoms Reported Gastrointestinal: See HPI Genitourinary: See HPI Musculoskeletal: see HPI Skin: no symptoms reported Psychiatric/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: No Symptoms Reported Endocrine: No Symptoms Reported Hematologic/Lymphatic: No Symptoms Reported Past Yuqcxar-Lqwddu-Nyyeuf Hx Past Med/Social Hx: Reviewed and Corrections made Patient Social History Alcohol Use: Rarely Uses Recreational Drug Use: No 2nd Hand Smoke Exposure: No Recent Foreign Travel: No Contact w/Someone Who Travel: No Recent Infectious Disease Expo: No Recent Hopitalizations: No Physical Abuse: No Sexual Abuse: No Mistreated: No Fear: No Seasonal Allergies Seasonal Allergies: No Past Medical History Surgeries: Yes (LUMPECTOMY AND MASECTOMY WITH RECONSTRUCTION ON RIGHT) Breast, Section, 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 Respiratory: Yes Asthma Cardiac: Yes Hypertension 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: Yes Neuropathy : No [employer] History: 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 Genitourinary: Yes (possible left ureteral obstruction) Gastrointestinal: Yes Gastroesophageal Reflux, Gall Bladder Disease Musculoskeletal: Yes (metastases to bone) Endocrine: Yes Hypothyroidsim HEENT: No Cancer: Yes (RECENT METS DIAGNOSIS) Breast Did You Recieve Any Treatments: Yes What Type of Treatment Did You: Chemotherapy Psychosocial: Yes ADD/ADHD, Sleep Difficulties, Depression Integumentary: No Blood Disorders: No Physical Exam Vital Signs Vital Signs - First Documented 04/13/19 19:07 Temp 37.5 Pulse 116 Resp 20 B/P (MAP) 157/99 (118) Pulse Ox 99 Capillary Refill : Less Than 3 Seconds Height/Weight/BMI Height: '" Weight: lbs. oz. kg; 26.00 BMI Method: General Appearance: WD/WN, no apparent distress HEENT: normal ENT inspection, pharynx normal Neck: normal inspection Respiratory: lungs clear, normal breath sounds, no respiratory distress, no accessory muscle use Cardiovascular: regular rate, rhythm, no edema, no murmur Gastrointestinal: normal bowel sounds, soft, distended, tenderness (most prominent in the right upper quadrant) Extremities: normal inspection, no pedal edema Neurologic/Psychiatric: c t tech II-XII nml as tested, no motor/sensory deficits, alert, normal mood/affect, oriented x 3 Skin: normal color, warm/dry Progress/Results/Core Measures Results/Orders Lab Results Laboratory Tests Test 04/13/19 19:25 04/13/19 20:57 Range/Units White Blood Count 8.5 4.3-11.0 10^3/uL Red Blood Count 3.73 L 4.35-5.85 10^6/uL Hemoglobin 9.2 L 11.5-16.0 G/DL Hematocrit 29 L 35-52 % Mean Corpuscular Volume 78 L 80-99 FL Mean Corpuscular Hemoglobin 25 25-34 PG Mean Corpuscular Hemoglobin Concent 32 32-36 G/DL Red Cell Distribution Width 17.4 H 10.0-14.5 % Platelet Count 496 H 130-400 10^3/uL Mean Platelet Volume 8.7 7.4-10.4 FL Neutrophils (%) (Auto) 80 H 42-75 % Lymphocytes (%) (Auto) 11 L 12-44 % Monocytes (%) (Auto) 7 0-12 % Eosinophils (%) (Auto) 2 0-10 % Basophils (%) (Auto) 0 0-10 % Neutrophils # (Auto) 6.8 1.8-7.8 X 10^3 Lymphocytes # (Auto) 0.9 L 1.0-4.0 X 10^3 Monocytes # (Auto) 0.6 0.0-1.0 X 10^3 Eosinophils # (Auto) 0.2 0.0-0.3 10^3/uL Basophils # (Auto) 0.0 0.0-0.1 10^3/uL Sodium Level 132 L 135-145 MMOL/L Potassium Level 3.6 3.6-5.0 MMOL/L Chloride Level 103 98-107 MMOL/L Carbon Dioxide Level 19 L 21-32 MMOL/L Anion Gap 10 5-14 MMOL/L Blood Urea Nitrogen 10 7-18 MG/DL Creatinine 0.78 0.60-1.30 MG/DL Estimat Glomerular Filtration Rate > 60 BUN/Creatinine Ratio 13 Glucose Level 90 70-105 MG/DL Calcium Level 9.0 8.5-10.1 MG/DL Corrected Calcium 9.4 8.5-10.1 MG/DL Total Bilirubin 0.3 0.1-1.0 MG/DL Aspartate Amino Transf (AST/SGOT) 20 5-34 U/L Alanine Aminotransferase (ALT/SGPT) 13 0-55 U/L Alkaline Phosphatase 61 40-136 U/L C-Reactive Protein High Sensitivity 13.69 H 0.00-0.50 MG/DL Total Protein 6.7 6.4-8.2 GM/DL Albumin 3.5 3.2-4.5 GM/DL Lipase 15 8-78 U/L Urine Color YELLOW Urine Clarity CLEAR Urine pH 6.0 5-9 Urine Specific [place] 1.025 H 1.016-1.022 Urine Protein TRACE H NEGATIVE Urine Glucose (UA) NEGATIVE NEGATIVE Urine Ketones 3+ H NEGATIVE Urine Nitrite NEGATIVE NEGATIVE Urine Bilirubin 1+ H NEGATIVE Urine Urobilinogen 0.2 < = 1.0 MG/DL Urine Leukocyte Esterase TRACE H NEGATIVE Urine RBC (Auto) NEGATIVE NEGATIVE Urine RBC NONE /HPF Urine WBC 2-5 /HPF Urine Squamous Epithelial Cells 2-5 /HPF Urine Crystals NONE /LPF Urine Bacteria FEW H /HPF Urine Casts NONE /LPF Urine Mucus NEGATIVE /LPF Urine Culture Indicated YES My Orders Orders - TICO GALAN MD Ua Culture If Indicated (04/13/19 19:07) Cbc With Automated Diff (04/13/19 19:25) Comprehensive Metabolic Panel (04/13/19 19:25) Hs C Reactive Protein (04/13/19 19:25) Lipase (04/13/19 19:25) Fentanyl Injection (Sublimaze Injection (04/13/19 19:30) Chest Pa/Lat (2 View) (04/13/19 19:25) Abdomen, Flat & Upright/Decub (04/13/19 19:25) Urine Culture (04/13/19 20:57) Ns Iv 1000 Ml (Sodium Chloride 0.9%) (04/13/19 21:43) Medications Given in ED Current Medications Medications Dose Ordered Sig/Ninfa Route Start Time Stop Time Status Last Admin Dose Admin Fentanyl Citrate 50 mcg ONCE ONCE IVP 04/13/19 19:30 04/13/19 19:31 DC 04/13/19 19:32 50 MCG Sodium Chloride 1,000 ml @ 0 mls/hr Q0M ONCE IV 04/13/19 21:43 04/13/19 21:44 DC 04/13/19 21:58 1,000 MLS/HR Vital Signs/I&O 04/13/19 19:07 Temp 37.5 Pulse 116 Resp 20 B/P (MAP) 157/99 (118) Pulse Ox 99 Blood Pressure Mean: 118 Progress Progress Note : Progress Note Patient was seen and evaluated. Labs were fairly unremarkable except for elevated CRP which is likely secondary to neoplasm. Urine was concentrated with ketones present. Patient was felt to be hypovolemic and a liter of IV fluid was infused. Pain was treated with fentanyl. Plain x-rays of the abdomen and chest were obtained and showed no cause for her pain. Specifically, there was no evidence for bowel obstruction. Given patient's prior problems with gallbladder function and her presence of pain in the right upper quadrant associated with eating, gallbladder ultrasound seem to be the most appropriate next imaging study to obtain. In order was provided for this to be obtained as an outpatient. I discussed the case with Dr. Perdomo who will receive report from the ultrasound. Patient will return in the morning to obtain the ultrasound study. Diagnostic Imaging Diagonstic Imaging: Xray Plain Films/CT/US/NM/MRI: abdomen, pelvis Comments Two-view KUB and upright abdominal film viewed by me and report reviewed. See report below: NAME: SUZIE MILLER [facility] REC#: [id number] PT STATUS: REG ER : 1960 PHYSICIAN: TICO GALAN MD ADMIT DATE: 04/13/19/ER Signed Date of Exam:04/13/19 ABDOMEN, FLAT & UPRIGHT/DECUB INDICATION: Right flank pain. History of breast cancer and metastatic disease EXAMINATION: Abdomen dated 04/13/2019 FINDINGS: Scattered sclerotic area is noted throughout the visualized osseous structures consistent with the known history of metastatic disease. Scoliotic deformity of the spine is also seen. There is no free air beneath the diaphragm. There are clips in the right abdomen and in the pelvis. No dilated loops of bowel. IMPRESSION: 1. Incidental findings of metastatic disease as above with a nonobstructive bowel gas pattern. Dictated by: Dictated on workstation # [id number] Dict: 04/13/192010 Trans: 04/13/192228 [facility] [id number] Interpreted by: ZACHERY ESQUEDA MD Electronically signed by: ZACHERY ESQUEDA MD 04/13/192228 Diagonstic Imaging: Xray Plain Films/CT/US/NM/MRI: chest Comments Chest x-ray viewed by me and report reviewed. See report below: NAME: SUZIE MILLER [facility] REC#: [id number] PT STATUS: REG ER : 1960 PHYSICIAN: TICO GALAN MD ADMIT DATE: 04/13/19/ER Signed Date of Exam:04/13/19 CHEST PA/LAT (2 VIEW) INDICATION: Right flank pain EXAMINATION: Two-view chest 04/13/2019 FINDINGS: There is a density in the right mid lung laterally. It could be due to a healing fracture seen on recent PET scan along a right anterior rib. There is a calcified granuloma at the left lung base. There are no focal infiltrates or effusions. Heart and pulmonary vasculature grossly unremarkable. Diffuse increased density throughout the osseous structures of the spine consistent with the metastatic disease seen on previous PET/CT. IMPRESSION: 1. Multiple chronic changes including diffuse osseous metastatic disease and healing fracture of the right rib. No acute process appreciated at this time. Dictated by: Dictated on workstation # [id number] Dict: 04/13/192005 Trans: 04/13/192228 [facility] [id number] Interpreted by: ZACHERY ESQUEDA MD Electronically signed by: ZACHERY ESQUEDA MD 04/13/192228 Departure Impression Primary Impression: Right upper quadrant pain Additional Impressions: Hypovolemia Metastatic breast cancer Abdominal distention Disposition: HOME, SELF-CARE Condition: Improved Departure-Patient Inst. Decision time for Depature: 22:30 Referrals: FADY ORELLANA DO (PCP) Primary Care Physician NICKIE PERDOMO DO Patient Instructions: Acute Abdomen (Belly Pain), Adult (DC) Add. Discharge Instructions: Adhere to a clear liquid diet for the remainder of the night except for your medications. Do not have anything to eat or drink after 1:30 this morning. Present to the hospital around 7:30 this morning for the ultrasound. Stay at the hospital after the study is done until instructions can be given to by Dr. Perdomo. If you so choose, you may establish care with Dr. Perdomo. Stab washing with a general surgeon may be important if you need drainage of your ascites fluid. Follow-up with Dr. Perdomo or the surgeon of your choice as soon as possible. You may call the office tomorrow to schedule follow-up. Return to the emergency room if you have worsening symptoms or develop new symptoms such as fevers over 100.3, escalating pain, vomiting, etc. In general, if you are concerned about gallbladder problems avoid fatty, greasy, or oily foods. All discharge instructions reviewed with patient and/or family. Voiced understanding. Copy Copies To 1: NICKIE PERDOMO DO Copies To 2: HUY STONE MD, JOSHUA T MD Apr 13, 2019 22:32
[2019-04-13 22:48] VITALS: BP 134/89
== END 2019-04-13 22:48 | disposition home or self-care (01) ==
LOC: EDUNIT# 19:00 → ER 19:02
DX: R10.11 Right upper quadrant pain (principal); E86.1 Hypovolemia; C50.919 Malignant neoplasm of unspecified site of unspecified female breast; C79.51 Secondary malignant neoplasm of bone; I10 Essential (primary) hypertension; Z87.19 Personal history of other diseases of the digestive system; Z90.710 Acquired absence of both cervix and uterus; Z88.6 Allergy status to analgesic agent; Z88.8 Allergy status to other drugs, medicaments and biological substances
CPT/HCPCS: 36415; 71046; 74019; 80053; 81000; 83690; 85025; 86141; 87088

== ENCOUNTER → 2019-04-14 | Outpatient (CLI) | payer MEDICARE, OTHER ==
[~2019-04-14] VITALS: Ht 165.1 cm; Wt 73.6 kg
[~2019-04-14] MED LIST changes: +ALBUMIN 25% 25 GM/100 ML 100 ML IV ONE; -BARIUM SUSPENSION 2.1% (VANILLA SILQ) 450 ML PO ONE; -CATHETER FLUSH 10 ML SYR IV PRN; -HOLD METFORMIN - RECEIVED CONTRAST 20 ML VIAL IV SCH; -IOHEXOL 350 MG/ML 100 ML (OMNIPAQUE 350) VIAL IV ONE; -NS 100 ML (IVPB) BAG IV ONE
[2019-04-14 14:50] LABS: AMYLASE,BODY FLUID 33 U/L; GLUCOSE,BODY FLUID 75 MG/DL; LDH,BODY FLUID 242 U/L; TOTAL PROTEIN,BODY FLUID 3.4 G/DL
--- NOTE | 2019-04-14 15:06 | Diagnostic Imaging Report ---
INDICATION: Ascites. FINDINGS: Sonographic guidance was provided for Dr. Patino for paracentesis. 4 L of fluid was removed. IMPRESSION: Sonographic guidance for paracentesis. Dictated by: Dictated on workstation # [id number]
[2019-04-14 15:38] LABS: BODY FLUID COLOR PALE YELLOW; BODY FLUID SOURCE PERITON
[2019-04-14 15:39] LABS: BF OTHER CELLS 14 %; BODY FLUID APPEARENCE MOD CLDY; BODY FLUID RBC COUNT 125 /uL; BODY FLUID WBC TOTAL COUNT 2550 /uL; LYMPHOCYTES,BODY FLUID 83 %
--- NOTE | 2019-04-15 01:54 | OPERATIVE REPORT ---
DATE OF SERVICE: 04/14/2019 PREOPERATIVE DIAGNOSIS: Symptomatic ascites. POSTOPERATIVE DIAGNOSIS: Symptomatic ascites. PROCEDURE: Ultrasound-guided paracentesis. SURGEON: Nickie Patino DO ANESTHESIA: 1% lidocaine 3 mL. COMPLICATIONS: None. INDICATIONS: The patient is a 59-year-old female with metastatic breast cancer. She has symptomatic ascites. She understands risks and benefits of procedure and wished to proceed with procedure. Consent was signed and on the chart. DESCRIPTION OF PROCEDURE: The patient was taken to the procedure room. Ultrasound was used to isolate the largest pocket of fluid and marked. The area was then prepped and draped in sterile fashion. Local anesthetic was infiltrated. A 11 blade scalpel was used to make a skin incision. The [id number] needle and catheter were then advanced through the abdominal wall until straw colored fluid was withdrawn. The catheter was then advanced and the needle was withdrawn. Straw colored fluid was withdrawn, a total of 4 liters. Once removed, the area was then washed and dried and sterile bandage was applied. The patient tolerated procedure well without any complications. Job ID: [id number] DocumentID: [id number] Dictated Date: 04/14/2019 16:23:58 District Operations Manager Date: 04/15/2019 01:53:00 Dictated By: NICKIE PATINO DO
== END ==
LOC: RAD 12:38
PROVIDERS: ATTEND Surgery
DX: R18.8 Other ascites (principal)
CPT/HCPCS: 49083; 82150; 82570; 82945; 83615; 84157; 87070; 87075; 87205; 89051

== ENCOUNTER → 2019-04-14 | Outpatient (CLI) | payer MEDICARE, OTHER ==
--- NOTE | 2019-04-14 08:51 | Diagnostic Imaging Report ---
CLINICAL INDICATION: Patient with right upper quadrant pain. Patient has history of breast cancer. EXAM: Right upper quadrant ultrasound. COMPARISON: CT scan of the abdomen and pelvis performed with IV contrast dated 04/02/2019. FINDINGS: Patient's body habitus and overlying bowel gas partially obscures portions of this exam. The pancreatic tail and head is partially obscured by overlying bowel gas. Otherwise, pancreas is grossly unremarkable as visualized. The liver has normal echogenicity and echotexture. The liver surface is smooth. The liver measures 16.3 cm. The main portal vein demonstrates hepatopetal flow. There are several areas of increased echogenicity within the right lobe of the liver. The two largest measure 8 mm x 10 mm and 7 mm x 4 mm and are near each other. There is no posterior shadowing noted. These areas of increased echogenicity are not distinctly seen on the comparison CT scan. Again seen multiple cystic structures throughout the liver which is noted on the prior CT scan. The largest one measuring 2.8 cm x 1.8 cm x 1.7 cm involving the right lobe of the liver near the dome. There is sludge seen within the gallbladder. The gallbladder wall is upper limits of normal for being thickened at 2.6 mm. There is no stone seen. There is no sonographic Martinez sign. There is no intrahepatic or extrahepatic ductal dilation. The common bile duct measures 6 mm which is upper limits of normal for patient's age. The visualized portions of the abdominal aorta and IVC are unremarkable. The right kidney has normal appearance and cortical thickness with no hydronephrosis or mass. Right kidney measures 11.8 cm in craniocaudal dimension. There are a few focal areas of increased echogenicity involving the cortical region of the right kidney, measuring up to 6 mm. These are nonspecific and may represent calcification, stones, or areas of fat which are nonobstructed. There is no significant abnormality seen on the comparison CT scan. There is abdominal ascites noted. IMPRESSION: 1: There is gallbladder sludge with no stones. There is no ultrasound evidence of acute cholecystitis. There is no sonographic Martinez's sign. 2: There are several, centimeter or less, circumscribed areas of increased echogenicity within the liver which are nonspecific. Considerations may represent hemangiomas, but given patient's history of cancer, metastatic disease should be excluded. These were not delineated on the prior CT scan. MRI of the liver with and without IV contrast would better evaluate. 3: There are focal areas of increased echogenicity involving the right kidney which are nonspecific. Stones, calcification, or fat may be considered. These also are not delineated on the prior CT scan. 4: Multiple liver cysts are seen. 5: Abdominal ascites. Dictated by: Dictated on workstation # [id number]
== END ==
LOC: RAD 07:01
PROVIDERS: ATTEND Family Medicine
DX: K76.89 Other specified diseases of liver (principal); K82.8 Other specified diseases of gallbladder
CPT/HCPCS: 76705

== ENCOUNTER 2019-04-21 10:13 | Inpatient (IN) | payer MEDICARE, OTHER ==
[~2019-04-21] VITALS: Ht 165.1 cm; Wt 74.5 kg
[~2019-04-21 10:13] MED LIST changes: +ACET-2267 PO; -ALBUMIN 25% 25 GM/100 ML 100 ML IV ONE; +AMLO5TAB9 PO; +CHOL500061 PO; +DEXT30CA4 PO; +DICL100G31 TD; +DIPH25CA79 PO; +FLUO20CA45 PO; +FLUO40CA PO; +GABA-488 PO; +IBUP-2473 PO; +LACT1CAP72 PO; +LEVO25TA5 PO; +MAGN400T39 PO; +MULT-975 PO; +OMEG-160 PO; +OMEP40CA27 PO; +ONDA4TAB10 PO; +OXYC-471 PO; +PHYT100T PO; +PSEU-137 PO; +VITA1CAP PO; +ZOLP12.546 PO
[2019-04-21] MEDS ORDERED: PATIENT MAY USE OWN MED,SINGLE MED PO SCH (11:00)
--- NOTE | 2019-04-21 11:19 | NUR ---
Swing Bed Note: Qualifies for swing bed for continued multiple IV medications (MET CA, Uncontrolled Nausea and Vomiting). Patient reports that she has also now been made NPO d/t N/V et will be receiving IV nutritional support. Oncology attempted to manage her symptoms outside of the hospital x1 week et ultimately she had to be admitted to receive continuous IV interventions for her symptoms. She will be receiving chemotherapy while in the hospital of taxotere/docetaxel et this has been explored as an unbundable item for consolidated billing. Spoke with Dr. Gregory who would like her to access her skilled benefits beginning today. Dr. Gregory confirmed that the patient will not need surgical interventions at this time for her left ureter. Visited with Macey et her Dani about her benefits et coverage et she is in agreement to access her swing bed benefits. Was not able to talk with her primary care nurse Bertha but l left a message with the community health consultant on intentions of Dr. Gregory to admit her to a swing bed status today. No further interventions noted at this time. Patient will admit to swing bed status today 04/21/18.
--- NOTE | 2019-04-21 11:20 | NUR ---
Admission Drug Regimen Review: Date: 04/21/19 Time: 1120 Review Completed, No Issues found
[2019-04-21] MEDS ORDERED: NS (IVPB) 50 ML ONE (11:48)
[2019-04-21] MEDS: PROMETHAZINE INJ 25 MG/ML (PHENERGAN) AMP IVP PRN ×2 (11:54→16:46)
[2019-04-21 12:00] VITALS: BP 130/78
[2019-04-21] MEDS: AA 4.25% W/LYTES IN D5W IV SOL 1,000 ML IV SCH ×2 (12:51→21:13)
[2019-04-21 13:10] LABS: BASOPHILS % (AUTO) 0 % (0-10); EOSINOPHILS % (AUTO) 0 % (0-10); HEMATOCRIT 27 % (35-52); HEMOGLOBIN 8.5 G/DL (11.5-16.0); LYMPHOCYTES # (AUTO) 0.6 X 10^3 (1.0-4.0); LYMPHOCYTES % (AUTO) 4 % (12-44); MEAN CORPUSCULAR HEMOGLOBIN 25 PG (25-34); MEAN CORPUSCULAR HGB CONC 31 G/DL (32-36); MEAN CORPUSCULAR VOLUME 79 FL (80-99); MEAN PLATELET VOLUME 8.6 FL (7.4-10.4); MONOCYTES # (AUTO) 0.3 X 10^3 (0.0-1.0); MONOCYTES % (AUTO) 2 % (0-12); NEUTROPHILS # (AUTO) 13.4 X 10^3 (1.8-7.8); NEUTROPHILS % (AUTO) 94 % (42-75); PLATELET COUNT 413 10^3/uL (130-400); RED CELL DISTRIBUTION WIDTH 17.3 % (10.0-14.5); WHITE BLOOD COUNT 14.3 10^3/uL (4.3-11.0)
[2019-04-21 13:31] LABS: ALANINE AMINOTRANSFERASE 14 U/L (0-55); ALBUMIN 2.9 GM/DL (3.2-4.5); ALKALINE PHOSPHATASE 55 U/L (40-136); BILIRUBIN,TOTAL 0.2 MG/DL (0.1-1.0); BUN/CREATININE RATIO 7; CALCIUM 7.7 MG/DL (8.5-10.1); CARBON DIOXIDE 23 MMOL/L (21-32); CHLORIDE 104 MMOL/L (98-107); CREATININE SERUM 0.71 MG/DL (0.60-1.30); GFR ESTIMATED > 60; GLUCOSE 136 MG/DL (70-105); SODIUM 136 MMOL/L (135-145); TOTAL PROTEIN 5.9 GM/DL (6.4-8.2)
[2019-04-21 13:56] LABS: ANISOCYTOSIS SLIGHT; BAND NEUTROPHILS 1 %; BASOPHILS % (MANUAL) 0 %; EOSINOPHILS % (MANUAL) 0 %; LYMPHOCYTES % (MANUAL) 7 %; MONOCYTES % (MANUAL) 1 %; NEUTROPHILS % (MANUAL) 91 %
--- NOTE | 2019-04-21 14:06 | NUR ---
RD ASSESSMENT PMHx: CA(metastatic breast); hypothyroidism PT INTERACTION: Pt was awake and pleasant during consult for MST score. Pt states current appetite is poor and has been since "a week ago this past Friday." Note avg PO intake was >75% of meals, per chart review. Pt states following a regular diet at home and has some issues with swallowing food, but these are rare occurrences. Pt states having issues with nausea and vomiting for the same timeframe as the poor appetite. Pt states no recent issues with constipation or diarrhea. Note last BM was 2/3 and pt not currently on bowel regimen per chart review. Pt states recent 30# wt loss x6mon. This is significant wt loss at 15% x6mon. Note unable to determine recent wt hx, per chart review. Upon visual exam, pt appears to be adequately nourished with no visible signs of muscle/fat wasting, and a BMI of 27.3. Given pt's poor appetite and wt hx, pt meets criteria for malnutrition, per ASPEN guidelines. ABNORMAL NUTRITION-RELATED LAB VALUES LOW: Na 134; Ca 7.7; Pro 5.7; alb 2.9 HIGH: Est. kcal needs: 1255-4795 kcal | 20-25 kcal/kg Est. Pro needs: 75-89 g Pro | 1.0-1.2 g Pro/kg PES STATEMENT: Inadequate oral intake (NI-2.1) related to loss of appetite | nausea | vomiting as evidenced by pt interview INTERVENTION: Note pt currently receiving TPN formula, providing 340 kcal (5 kcal/kg) and 43 g Pro (0.6 g Pro/kg). Continue with current diet order of Clear Liquid diet. Add Ensure Clear (vary) to meals TID, for increased kcal intake. Provides 250 kcal and 8 g Pro per serving. Will continue to follow and reassess as pt needs and status change. MONITOR/EVALUATE: PO Intake; Plan of Care; Hydration Status; Weight Status; Lab Values Abdoulaye Chacon, MS, RD, LD
[2019-04-21] MEDS: PROMETHAZINE INJ 25 MG/ML (PHENERGAN) AMP IVP SCH ×2 (14:57→21:03)
[2019-04-21] MEDS: GABAPENTIN 300 MG (NEURONTIN) CAP PO SCH (17:48)
[2019-04-21 17:55] VITALS: BP 129/74
[2019-04-21] MEDS: PANTOPRAZOLE 40 MG (PROTONIX) VIAL IV SCH (20:53)
[2019-04-21] MEDS: DEXAMETHASONE 4 MG/ML SDV (DECADRON) IV SCH (20:57)
[2019-04-21] MEDS: fentaNYL INJECTION 100 MCG/2 ML AMP IVP PRN (21:12)
[2019-04-22] MEDS: fentaNYL INJECTION 100 MCG/2 ML AMP IVP PRN ×3 (02:56→20:11)
[2019-04-22] MEDS: PROMETHAZINE INJ 25 MG/ML (PHENERGAN) AMP IVP PRN ×2 (02:57→20:11)
[2019-04-22 05:54] VITALS: BP 126/79
[2019-04-22] MEDS: PROMETHAZINE INJ 25 MG/ML (PHENERGAN) AMP IVP SCH ×3 (05:57→22:09)
[2019-04-22] MEDS: LEVOTHYROXINE 25 MCG (LEVOTHROID) TAB PO SCH (05:57)
--- NOTE | 2019-04-22 08:05 | Progress Note - Surgery ---
[facility] 04/22/19 0805: Subjective Date Seen by a Provider: Apr 22, 2019 Time Seen by a Provider: 07:30 Subjective/Events-last exam Pt feeling better today. Reports some "heartburn" and mild distension of abdomen, but denies any fevers, chills, SOB, N/V, abd pain, constipation, or any other sx at this time. Per Dr Gregory, pt has been resting her GIT, not having anything besides water. She does report episodes of vomiting yesterday until about 9PM. Pt has hx of chronic PUD since 1989 for which she has been taking omeprazole. Review of Systems General: No Chills, No Fatigue Pulmonary: No Dyspnea, No Cough Cardiovascular: No: Chest Pain, Palpitations Gastrointestinal: Other (has mild distention); No: Nausea, Vomiting, Abdominal Pain, Constipation Objective Exam Vital Signs Date Time Temp Pulse Resp B/P (MAP) Pulse Ox O2 Delivery O2 Flow Rate FiO2 04/22/19 07:00 85 04/22/19 05:54 36.9 86 20 126/79 (95) 95 Room Air 04/22/19 01:00 90 04/21/19 21:23 100 04/21/19 21:00 94 Room Air 04/21/19 17:55 37.0 85 20 129/74 (92) 94 Room Air 04/21/19 12:00 36.8 80 16 130/78 (95) 93 Room Air I & O0 04/22/19 06:59 Intake Total 1750 ml Balance 1750 ml Capillary Refill : Less Than 3 Seconds General Appearance: No Apparent Distress, WD/WN, Other (overall looks better than yesterday, appears to have more energy, sitting up right in bed.) Neck: Normal Inspection, Non Tender Respiratory: Chest Non Tender, No Accessory Muscle Use, No Respiratory Distress Cardiovascular: Regular Rate, Rhythm, No JVD, Normal Peripheral Pulses Gastrointestinal: non tender, soft, distended (mild); No guarding, No rebound, No tenderness Extremity: Normal Capillary Refill, No Calf Tenderness Neurologic/Psychiatric: Alert, Oriented x3 Skin: Warm/Dry, Pallor Results Lab Laboratory Tests 04/21/19 13:00: White Blood Count 14.3H, Red Blood Count 3.43L, Hemoglobin 8.5L, Hematocrit 27L, Mean Corpuscular Volume 79L, Mean Corpuscular Hemoglobin 25, Mean Corpuscular Hemoglobin Concent 31L, Red Cell Distribution Width 17.3H, Platelet Count 413H, Mean Platelet Volume 8.6, Neutrophils (%) (Auto) 94H, Lymphocytes (%) (Auto) 4L, Monocytes (%) (Auto) 2, Eosinophils (%) (Auto) 0, Basophils (%) (Auto) 0, Neutrophils # (Auto) 13.4H, Lymphocytes # (Auto) 0.6L, Monocytes # (Auto) 0.3, Eosinophils # (Auto) 0.0, Basophils # (Auto) 0.0, Neutrophils % (Manual) 91, Lymphocytes % (Manual) 7, Monocytes % (Manual) 1, Eosinophils % (Manual) 0, Basophils % (Manual) 0, Band Neutrophils 1, Anisocytosis SLIGHT, Sodium Level 136, Potassium Level 4.0, Chloride Level 104, Carbon Dioxide Level 23, Anion Gap 9, Blood Urea Nitrogen 5L, Creatinine 0.71, Estimat Glomerular Filtration Rate > 60, BUN/Creatinine Ratio 7, Glucose Level 136H, Calcium Level 7.7L, Corrected Calcium 8.6, Total Bilirubin 0.2, Aspartate Amino Transf (AST/SGOT) 19, Alanine Aminotransferase (ALT/SGPT) 14, Alkaline Phosphatase 55, Total Protein 5.9L, Albumin 2.9L 04/22/19 05:10: Glucometer 128H Assessment/Plan Assessment/Plan Assessment/Plan metastatic breast cancer with carcinomatosis s/p paracentesis for symptomatic ascites-no further sx at this time n/v- after ingesting solid food left hydronephrosis s/p port placement Elevated white count from 9.2 yesterday to 14.2 today; currently not on ABX patient NPO per Dr. Gregory except for sips of water antiemetic and symptoms control iv fluids, IV nutrition Plan to transfer pt to swing bed today per oncology request Will have chemo Taxotere today No further surgical intervention indicated at this time. Will sign off. Will be happy to consult again in the future if need be. Clinical Quality Measures DVT/VTE Risk/Contraindication: Risk Factor Score Per Nursin NICKIE PATINO DO 04/22/19 1055: Subjective Subjective/Events-last exam Patient feeling better. Abdomen feeling slightly more fluid. Starting chemo. Denies n/v fever sweats chills shortness of breath or chest pain. Objective Exam General Appearance: No Apparent Distress, WD/WN HEENT: PERRL/EOMI, Normal ENT Inspection Neck: Normal Inspection, Non Tender Respiratory: Chest Non Tender, No Accessory Muscle Use, No Respiratory Distress Cardiovascular: Regular Rate, Rhythm, Normal Peripheral Pulses Gastrointestinal: non tender, soft, distended (minimal); No guarding, No rebound, No tenderness Extremity: Normal Capillary Refill Neurologic/Psychiatric: Alert, Oriented x3, No Motor/Sensory Deficits Skin: Warm/Dry Lymphatic: No Adenopathy Assessment/Plan Assessment/Plan Assessment/Plan metastatic breast cancer with carcinomatosis s/p paracentesis for symptomatic ascites-no further sx at this time n/v- after ingesting solid food left hydronephrosis s/p port placement no surgical intervention at this time will sign off, call if needed. Supervisory-Addendum Brief Verification & Attestation Participated in pt care: history, MDM, physical Personally performed: exam, history, MDM, supervision of care Care discussed with: Medical Student Procedures: n/a Results interpretation: Verified all documentation Verification and Attestation of Medical Student E/M Service A medical student performed and documented this service in my presence. I reviewed and verified all information documented by the medical student and made modifications to such information, when appropriate. I personally performed the physical exam and medical decision making. Nickie Patino, Apr 22, 2019,10:55 [facility] Apr 22, 2019 08:05 NICKIE PATINO DO Apr 22, 2019 10:55
[2019-04-22] MEDS: AA 4.25% W/LYTES IN D5W IV SOL 1,000 ML IV SCH ×2 (08:19→17:12)
[2019-04-22] MEDS: DEXAMETHASONE 4 MG/ML SDV (DECADRON) IV SCH ×2 (08:20→20:11)
[2019-04-22] MEDS: PANTOPRAZOLE 40 MG (PROTONIX) VIAL IV SCH ×2 (08:20→20:10)
[2019-04-22] MEDS: FLUoxetine HCL 20 MG (PROzac) CAP PO SCH (08:20)
[2019-04-22] MEDS ORDERED: PALONOSETRON HCL IV SCH (09:57)
[2019-04-22] MEDS ORDERED: diphenhydrAMINE 50 MG/ML INJ (CANCER CENTER) IV PRN (09:57)
[2019-04-22] MEDS ORDERED: NS IV 1000 ML (CANCER CTR) IV SCH (09:57)
[2019-04-22] MEDS ORDERED: NS IV SCH (09:57)
[2019-04-22] MEDS ORDERED: NORMAL SALINE IV SCH (09:57)
[2019-04-22] MEDS ORDERED: DOCETAXEL IV SCH (09:57)
[2019-04-22] MEDS ORDERED: DEXAMETHASONE IV SCH (09:57)
[2019-04-22] MEDS ORDERED: FAMOTIDINE 20MG/2ML IV (CANCER CTR) IV SCH (09:57)
--- NOTE | 2019-04-22 11:45 | NUR ---
pt brought back on floor by oncology personnel. patient is resting comfortably and states she doesn't need nausea or pain medication at this time
[2019-04-22] MEDS: GABAPENTIN 300 MG (NEURONTIN) CAP PO SCH (18:13)
[2019-04-22 18:18] VITALS: BP 135/84
--- NOTE | 2019-04-22 18:18 | Progress Note ---
Standard Progress Note Progress Notes/Assess & Plan Date Seen by a Provider: Apr 22, 2019 Time Seen by a Provider: 18:13 Progress/Assessment & Plan 59-year-old female with history of metastatic lobular type breast cancer and peritoneal carcinomatosis causing ascites and left ureteral obstruction with left hydronephrosis, admitted to the hospital with intractable nausea and vomiting along with dehydration. Status post therapeutic paracentesis with the removal of 4.5 L of ascites. Cytology positive for tumor cells consistent with metastatic breast cancer. Patient started on palliative chemotherapy with Taxotere today. She tolerated the chemotherapy well. Patient taking only sips of water by mouth and denied any vomiting today. She had significant vomiting yesterday. She is receiving some parenteral nutrition. Baseline CA 153 level was close to 1000. Repeat CBC and chemistry panel tomorrow. Increase activity and oral intake as tolerated. Urology evaluation for stent placement pending. WILFREDO PAREDES Apr 22, 2019 18:18
[2019-04-23] MEDS: AA 4.25% W/LYTES IN D5W IV SOL 1,000 ML IV SCH ×3 (01:30→23:53)
[2019-04-23] MEDS: PROMETHAZINE INJ 25 MG/ML (PHENERGAN) AMP IVP PRN ×2 (02:56→15:37)
[2019-04-23 06:15] VITALS: BP 134/83
[2019-04-23] MEDS: PROMETHAZINE INJ 25 MG/ML (PHENERGAN) AMP IVP SCH ×3 (06:29→21:38)
[2019-04-23] MEDS: LEVOTHYROXINE 25 MCG (LEVOTHROID) TAB PO SCH (06:29)
[2019-04-23 06:41] LABS: BASOPHILS % (AUTO) 0 % (0-10); EOSINOPHILS % (AUTO) 0 % (0-10); HEMATOCRIT 28 % (35-52); HEMOGLOBIN 8.7 G/DL (11.5-16.0); LYMPHOCYTES # (AUTO) 0.8 X 10^3 (1.0-4.0); LYMPHOCYTES % (AUTO) 7 % (12-44); MEAN CORPUSCULAR HEMOGLOBIN 24 PG (25-34); MEAN CORPUSCULAR HGB CONC 31 G/DL (32-36); MEAN CORPUSCULAR VOLUME 80 FL (80-99); MEAN PLATELET VOLUME 9.1 FL (7.4-10.4); MONOCYTES # (AUTO) 0.3 X 10^3 (0.0-1.0); MONOCYTES % (AUTO) 3 % (0-12); NEUTROPHILS # (AUTO) 10.5 X 10^3 (1.8-7.8); NEUTROPHILS % (AUTO) 90 % (42-75); PLATELET COUNT 431 10^3/uL (130-400); RED CELL DISTRIBUTION WIDTH 17.7 % (10.0-14.5); WHITE BLOOD COUNT 11.6 10^3/uL (4.3-11.0)
[2019-04-23 07:05] LABS: ALANINE AMINOTRANSFERASE 22 U/L (0-55); ALBUMIN 3.1 GM/DL (3.2-4.5); ALKALINE PHOSPHATASE 53 U/L (40-136); BILIRUBIN,TOTAL 0.3 MG/DL (0.1-1.0); BUN/CREATININE RATIO 31; CALCIUM 8.1 MG/DL (8.5-10.1); CARBON DIOXIDE 22 MMOL/L (21-32); CHLORIDE 101 MMOL/L (98-107); CREATININE SERUM 0.65 MG/DL (0.60-1.30); GFR ESTIMATED > 60; GLUCOSE 97 MG/DL (70-105); POTASSIUM 4.4 MMOL/L (3.6-5.0); SODIUM 132 MMOL/L (135-145)
[2019-04-23] MEDS: PANTOPRAZOLE 40 MG (PROTONIX) VIAL IV SCH ×2 (09:11→21:36)
[2019-04-23] MEDS: FLUoxetine HCL 20 MG (PROzac) CAP PO SCH (09:12)
[2019-04-23] MEDS: DEXAMETHASONE 4 MG/ML SDV (DECADRON) IV SCH ×2 (09:12→21:41)
[2019-04-23] MEDS ORDERED: SUCRALFATE 1 GM (CARAFATE) TAB PO SCH (11:25)
[2019-04-23] MEDS: ONDANSETRON 4 MG/2 ML (SDV) Z0FRAN IVP PRN (12:29)
--- NOTE | 2019-04-23 12:59 | Progress Note ---
Standard Progress Note Progress Notes/Assess & Plan Date Seen by a Provider: Apr 23, 2019 Time Seen by a Provider: 12:52 Progress/Assessment & Plan 59-year-old female with history of metastatic lobular type breast cancer and peritoneal carcinomatosis causing ascites and left ureteral obstruction with left hydronephrosis, admitted to the hospital with intractable nausea and vomiting along with dehydration. Status post therapeutic paracentesis with the removal of 4.5 L of ascites. Cytology positive for tumor cells consistent with metastatic breast cancer. Patient started on palliative chemotherapy with Taxotere yesterday. She continues to have intermittent nausea and dry heaves but denied any vomiting. Patient taking only sips of water by mouth. She complained of gastroesophageal reflux with significant burning. No mouth sores or evidence of thrush. She is receiving some parenteral nutrition. Baseline CA 153 level was close to 1000. CBC and chemistry panel stable. Will start the patient on sucralfate 1 g 4 times a day. Increase activity and oral intake as tolerated. Urology evaluation for stent placement pending. WILFREDO PAREDES Apr 23, 2019 12:59
[2019-04-23] MEDS: SUCRALFATE 1 GM (CARAFATE) TAB PO SCH ×3 (13:07→21:41)
[2019-04-23] MEDS: fentaNYL INJECTION 100 MCG/2 ML AMP IVP PRN (16:55)
[2019-04-23 17:18] VITALS: BP 119/80
[2019-04-23] MEDS: GABAPENTIN 300 MG (NEURONTIN) CAP PO SCH (18:28)
[2019-04-24] MEDS ORDERED: ACETAMINOPHEN 325 MG TABLET ONE (01:20)
[2019-04-24] MEDS ORDERED: ACETAMINOPHEN 325 MG TABLET PO ONE (01:30)
[2019-04-24] MEDS ORDERED: ACETAMINOPHEN 500 MG TAB (TYLENOL) PO ONE (01:30)
[2019-04-24] MEDS: PROMETHAZINE INJ 25 MG/ML (PHENERGAN) AMP IVP SCH ×3 (05:57→21:28)
[2019-04-24] MEDS: LEVOTHYROXINE 25 MCG (LEVOTHROID) TAB PO SCH (05:57)
[2019-04-24] MEDS: SUCRALFATE 1 GM (CARAFATE) TAB PO SCH ×4 (05:57→21:28)
[2019-04-24 06:00] VITALS: BP 154/83
[2019-04-24] MEDS: AA 4.25% W/LYTES IN D5W IV SOL 1,000 ML IV SCH ×2 (08:55→18:12)
[2019-04-24] MEDS: PANTOPRAZOLE 40 MG (PROTONIX) VIAL IV SCH ×2 (08:56→21:27)
[2019-04-24] MEDS: FLUoxetine HCL 20 MG (PROzac) CAP PO SCH (08:56)
[2019-04-24] MEDS: DEXAMETHASONE 4 MG/ML SDV (DECADRON) IV SCH ×2 (08:56→21:27)
[2019-04-24] MEDS: ONDANSETRON 4 MG/2 ML (SDV) Z0FRAN IVP PRN ×3 (09:02→20:49)
--- NOTE | 2019-04-24 13:32 | Progress Note ---
Standard Progress Note Progress Notes/Assess & Plan Date Seen by a Provider: Apr 24, 2019 Time Seen by a Provider: 13:25 Progress/Assessment & Plan 59-year-old female with history of metastatic lobular type breast cancer and peritoneal carcinomatosis causing ascites and left ureteral obstruction with left hydronephrosis, admitted to the hospital with intractable nausea and vomiting along with dehydration. Status post therapeutic paracentesis with the removal of 4.5 L of ascites. Cytology positive for tumor cells consistent with metastatic breast cancer. Baseline CA 153 level was close to 1000. Patient started on palliative chemotherapy with Taxotere on 04/22/19 for visceral crisis. Last night she felt febrile, but temperature remained at 37.2 degrees C. She was given a one time dose of acetaminophen, which seemed to help symptoms. She continues to have dry heaves and vomiting with scant material, but it is somewhat improved this morning. She is afraid to take any of her pills, however. She is currently on scheduled dexamethasone BID, and ondansetron and promethazine prn. She is receiving peripheral parenteral nutrition with Clinimix. Labs stable yesterday, will recheck tomorrow. Sucralfate 1 g 4 times a day was added to her med list yesterday due to severe reflux symptoms, which may have helped. Increase activity and oral intake as tolerated. If nausea worsens again, consider one time doses of metoclopramide or adding prn doses of dexamethasone. Would like to limit use of phenothiazine antiemetics to reduce risk of tardive dyskinesia. Urology evaluation for stent placement pending. ERIC BRADY MD Apr 24, 2019 13:32
[2019-04-24 17:50] VITALS: BP 125/82
[2019-04-24] MEDS: PROMETHAZINE INJ 25 MG/ML (PHENERGAN) AMP IVP PRN (18:12)
[2019-04-24] MEDS: GABAPENTIN 300 MG (NEURONTIN) CAP PO SCH (18:12)
[2019-04-25 04:38] LABS: BASOPHILS % (AUTO) 0 % (0-10); EOSINOPHILS % (AUTO) 0 % (0-10); HEMATOCRIT 29 % (35-52); HEMOGLOBIN 9.1 G/DL (11.5-16.0); LYMPHOCYTES # (AUTO) 0.2 X 10^3 (1.0-4.0); LYMPHOCYTES % (AUTO) 4 % (12-44); MEAN CORPUSCULAR HEMOGLOBIN 25 PG (25-34); MEAN CORPUSCULAR HGB CONC 32 G/DL (32-36); MEAN CORPUSCULAR VOLUME 78 FL (80-99); MEAN PLATELET VOLUME 9.2 FL (7.4-10.4); MONOCYTES # (AUTO) 0.1 X 10^3 (0.0-1.0); MONOCYTES % (AUTO) 2 % (0-12); NEUTROPHILS % (AUTO) 94 % (42-75); PLATELET COUNT 356 10^3/uL (130-400); RED CELL DISTRIBUTION WIDTH 17.8 % (10.0-14.5); WHITE BLOOD COUNT 5.3 10^3/uL (4.3-11.0)
[2019-04-25 04:57] LABS: ALANINE AMINOTRANSFERASE 32 U/L (0-55); ALKALINE PHOSPHATASE 51 U/L (40-136); BILIRUBIN,TOTAL 0.3 MG/DL (0.1-1.0); BUN/CREATININE RATIO 38; CALCIUM 7.9 MG/DL (8.5-10.1); CARBON DIOXIDE 21 MMOL/L (21-32); CHLORIDE 100 MMOL/L (98-107); CREATININE SERUM 0.68 MG/DL (0.60-1.30); GFR ESTIMATED > 60; GLUCOSE 128 MG/DL (70-105); POTASSIUM 4.3 MMOL/L (3.6-5.0); SODIUM 130 MMOL/L (135-145); TOTAL PROTEIN 5.6 GM/DL (6.4-8.2)
[2019-04-25] MEDS: AA 4.25% W/LYTES IN D5W IV SOL 1,000 ML IV SCH ×2 (05:47→15:07)
[2019-04-25] MEDS: PROMETHAZINE INJ 25 MG/ML (PHENERGAN) AMP IVP SCH ×3 (05:47→22:18)
[2019-04-25] MEDS: SUCRALFATE 1 GM (CARAFATE) TAB PO SCH ×4 (05:47→21:00)
[2019-04-25] MEDS: LEVOTHYROXINE 25 MCG (LEVOTHROID) TAB PO SCH (05:48)
[2019-04-25 06:10] VITALS: BP 132/81
[2019-04-25] MEDS: PANTOPRAZOLE 40 MG (PROTONIX) VIAL IV SCH ×2 (09:28→19:39)
[2019-04-25] MEDS: DEXAMETHASONE 4 MG/ML SDV (DECADRON) IV SCH ×2 (09:28→19:39)
[2019-04-25] MEDS: FLUoxetine HCL 20 MG (PROzac) CAP PO SCH (09:28)
[2019-04-25] MEDS: ONDANSETRON 4 MG/2 ML (SDV) Z0FRAN IVP PRN ×2 (11:30→19:39)
--- NOTE | 2019-04-25 13:51 | Progress Note ---
Standard Progress Note Progress Notes/Assess & Plan Date Seen by a Provider: Apr 25, 2019 Time Seen by a Provider: 13:48 Progress/Assessment & Plan 59-year-old female with history of metastatic lobular type breast cancer and peritoneal carcinomatosis causing ascites and left ureteral obstruction with left hydronephrosis, admitted to the hospital with intractable nausea and vomiting along with dehydration. Status post therapeutic paracentesis with the removal of 4.5 L of ascites. Cytology positive for tumor cells consistent with metastatic breast cancer. Baseline CA 153 level was close to 1000. Patient started on palliative chemotherapy with Taxotere on 04/22/19 for visceral crisis. Patient did not have any febrile symptoms last night and did not vomit since yesterday, although she says she is fighting it back from the nausea. She is still cautious about taking pills but was able to stomach the sucralfate, which has helped the burning epigastric sensation somewhat. She had a BM yesterday and was able to walk around the unit for 10-15 minutes. She is currently on scheduled dexamethasone BID, ondansetron and promethazine prn, pantoprazole and sucralfate. We will add famotidine and prn lorazepam. She is receiving peripheral parenteral nutrition with Clinimix. Labs continue to be stable. Increase activity and oral intake as tolerated. Urology evaluation for stent placement pending. ERIC BRADY MD Apr 25, 2019 13:51
[2019-04-25] MEDS: GABAPENTIN 300 MG (NEURONTIN) CAP PO SCH (15:07)
[2019-04-25] MEDS: LORazepam 0.5 MG (ATIVAN) TABLET PO PRN (15:08)
[2019-04-25] MEDS: PROMETHAZINE INJ 25 MG/ML (PHENERGAN) AMP IVP PRN (17:46)
[2019-04-25] MEDS: FAMOTIDINE 20MG/2ML IV (PEPCID) IVP SCH (19:39)
[2019-04-26] MEDS: PROMETHAZINE INJ 25 MG/ML (PHENERGAN) AMP IVP PRN ×2 (00:44→12:07)
[2019-04-26] MEDS: AA 4.25% W/LYTES IN D5W IV SOL 1,000 ML IV SCH ×4 (02:07→22:22)
[2019-04-26] MEDS: SUCRALFATE 1 GM (CARAFATE) TAB PO SCH ×4 (05:21→20:25)
[2019-04-26] MEDS: PROMETHAZINE INJ 25 MG/ML (PHENERGAN) AMP IVP SCH ×3 (05:22→20:21)
[2019-04-26] MEDS: LEVOTHYROXINE 25 MCG (LEVOTHROID) TAB PO SCH (05:22)
[2019-04-26 06:00] VITALS: BP 135/85
[2019-04-26] MEDS: DEXAMETHASONE 4 MG/ML SDV (DECADRON) IV SCH ×2 (09:04→20:23)
[2019-04-26] MEDS: FAMOTIDINE 20MG/2ML IV (PEPCID) IVP SCH ×2 (09:05→20:24)
[2019-04-26] MEDS: PANTOPRAZOLE 40 MG (PROTONIX) VIAL IV SCH ×2 (09:06→20:18)
[2019-04-26] MEDS: ONDANSETRON 4 MG/2 ML (SDV) Z0FRAN IVP PRN ×3 (09:13→23:35)
--- NOTE | 2019-04-26 09:15 | NUR ---
ZOFRAN 8MG IV FOR NAUSEA.
[2019-04-26] MEDS: FLUoxetine HCL 20 MG (PROzac) CAP PO SCH ×2 (10:19→11:16)
[2019-04-26] MEDS: D AMPHETAMINE SALT COMBO PO SCH ×2 (10:19→11:16)
--- NOTE | 2019-04-26 10:19 | NUR ---
CONTINUES TO REFUSE ADDERALL AND PROZAC R/T NAUSEA. WILL NOTIFY THIS RN IF DESIRES TO TAKE LATER.
--- NOTE | 2019-04-26 12:10 | NUR ---
PHENERGAN 25MG IV FOR NAUSEA.
--- NOTE | 2019-04-26 13:22 | Oncology Progress Note ---
Subjective Date Seen by a Provider: Apr 26, 2019 Time Seen by a Provider: 11:00 Subjective/Events-last exam Pt is feeling slightly better. Handled clear liquid well so far, no vomiting for 24hrs but still very nauseated. No fever. On clinimax IV for nutrition Taxotere chemo on 04/22/2019. Data Review Labs Laboratory Tests 04/25/19 04:26: Red Blood Count 3.68L, Hemoglobin 9.1L, Hematocrit 29L, Mean Corpuscular Volume 78L, Red Cell Distribution Width 17.8H, Neutrophils (%) (Auto) 94H, Lymphocytes (%) (Auto) 4L, Lymphocytes # (Auto) 0.2L, Sodium Level 130L, Blood Urea Nitrogen 26H, Glucose Level 128H, Calcium Level 7.9L, Total Protein 5.6L, Albumin 3.0L Physical Exam Vital Signs Vital Signs - First Documented 04/21/19 12:00 Temp 36.8 Pulse 80 Resp 16 B/P (MAP) 130/78 (95) Pulse Ox 93 O2 Delivery Room Air Capillary Refill : Less Than 3 SecondsLess Than 3 Seconds Height, Weight, BMI Height: '" Weight: lbs. oz. kg; 27.33 BMI Method: General Appearance: No Apparent Distress HEENT: PERRL/EOMI Respiratory: No Accessory Muscle Use, No Respiratory Distress Gastrointestinal: Soft, Distended Extremity: Non Tender, No Calf Tenderness, No Pedal Edema Neurologic/Psychiatric: Alert, Oriented x3 Impression & Plan Impression & Plan Continue scheduled dexamethasone BID, ondansetron and promethazine prn, pantoprazole and sucralfate as well as famotidine and prn lorazepam. Continue peripheral parenteral nutrition with Clinimix. Increase activity and oral intake as tolerated. Possible home tomorrow. Urology evaluation for stent placement pending. Clinical Quality Measures DVT/VTE Risk/Contraindication: Risk Factor Score Per Nursin HUY STONE MD Apr 26, 2019 13:22
--- NOTE | 2019-04-26 15:54 | NUR ---
Pt's daughter here from [place]. Pt states he is feeling much better as her current medication regimen seems to be working treating her nausea. She is hoping to be discharged home tomorrrow with [facility].
[2019-04-26] MEDS: GABAPENTIN 300 MG (NEURONTIN) CAP PO SCH (18:28)
--- NOTE | 2019-04-26 20:00 | NUR ---
PT C/O DIARRHEA TONIGHT. PT SAID SHE DID NOT MAKE IT TO BATHROOM ONE TIME. PT ASKED FOR MEDICATION TO STOP OR SLOW DOWN DIARRHEA. DR STONE NOTIFIED AND SHE ORDERED FOR PT TO NOT EAT ANY SUGAR, FIRST, THEN IF SHE CONTINUES TO HAVE DIARRHEA SHE CAN HAVE IMODIUM 2 MG AFTER LOOSE STOOLS, MAX OF 4 PILLS A DAY. PT REPORTED TO THIS RN SHE WAS NOT EATING ANY SUGAR AND ASKED FOR MEDICATION.
[2019-04-26] MEDS: LOPERAMIDE 2 MG (IMODIUM) TABLET PO PRN ×2 (20:18→23:34)
[2019-04-26] MEDS: LORazepam 0.5 MG (ATIVAN) TABLET PO PRN (20:30)
[2019-04-26 21:00] VITALS: BP 118/74
[2019-04-27] MEDS: PROMETHAZINE INJ 25 MG/ML (PHENERGAN) AMP IVP PRN (01:56)
[2019-04-27] MEDS: PROMETHAZINE INJ 25 MG/ML (PHENERGAN) AMP IVP SCH ×3 (05:25→20:34)
[2019-04-27] MEDS: LEVOTHYROXINE 25 MCG (LEVOTHROID) TAB PO SCH (05:25)
[2019-04-27] MEDS: SUCRALFATE 1 GM (CARAFATE) TAB PO SCH ×4 (05:26→20:33)
[2019-04-27 06:38] LABS: BASOPHILS % (AUTO) 4 % (0-10); EOSINOPHILS % (AUTO) 1 % (0-10); HEMATOCRIT 26 % (35-52); HEMOGLOBIN 8.3 G/DL (11.5-16.0); LYMPHOCYTES # (AUTO) 0.4 X 10^3 (1.0-4.0); LYMPHOCYTES % (AUTO) 47 % (12-44); MEAN CORPUSCULAR HEMOGLOBIN 25 PG (25-34); MEAN CORPUSCULAR HGB CONC 32 G/DL (32-36); MEAN CORPUSCULAR VOLUME 78 FL (80-99); MEAN PLATELET VOLUME 9.5 FL (7.4-10.4); MONOCYTES # (AUTO) 0.1 X 10^3 (0.0-1.0); MONOCYTES % (AUTO) 12 % (0-12); NEUTROPHILS # (AUTO) 0.3 X 10^3 (1.8-7.8); NEUTROPHILS % (AUTO) 36 % (42-75); PLATELET COUNT 330 10^3/uL (130-400); RED CELL DISTRIBUTION WIDTH 17.1 % (10.0-14.5)
[2019-04-27 06:40] LABS: WHITE BLOOD COUNT 0.8 10^3/uL (4.3-11.0)
--- NOTE | 2019-04-27 06:50 | NUR ---
DR STONE NOTIFIED BY PHONE BY THIS RN OF CRITICAL WBC OF 0.8, NO NEW ORDERS.
[2019-04-27 07:04] LABS: ALANINE AMINOTRANSFERASE 23 U/L (0-55); ALBUMIN 2.7 GM/DL (3.2-4.5); ALKALINE PHOSPHATASE 44 U/L (40-136); BILIRUBIN,TOTAL 0.3 MG/DL (0.1-1.0); BUN/CREATININE RATIO 37; CALCIUM 7.4 MG/DL (8.5-10.1); CARBON DIOXIDE 19 MMOL/L (21-32); CHLORIDE 100 MMOL/L (98-107); CREATININE SERUM 0.65 MG/DL (0.60-1.30); GFR ESTIMATED > 60; GLUCOSE 106 MG/DL (70-105); POTASSIUM 3.7 MMOL/L (3.6-5.0); SODIUM 128 MMOL/L (135-145); TOTAL PROTEIN 5.3 GM/DL (6.4-8.2)
[2019-04-27 09:00] VITALS: BP 112/61
[2019-04-27] MEDS: FLUoxetine HCL 20 MG (PROzac) CAP PO SCH (09:00)
[2019-04-27] MEDS: PANTOPRAZOLE 40 MG (PROTONIX) VIAL IV SCH ×2 (09:00→20:33)
[2019-04-27] MEDS: D AMPHETAMINE SALT COMBO PO SCH (09:00)
[2019-04-27] MEDS: DEXAMETHASONE 4 MG/ML SDV (DECADRON) IV SCH ×2 (09:00→20:34)
[2019-04-27] MEDS: LOPERAMIDE 2 MG (IMODIUM) TABLET PO PRN ×3 (09:55→20:33)
[2019-04-27] MEDS ORDERED: NS IV 500 ML 500 ML IV ONE (11:00)
[2019-04-27] MEDS: FAMOTIDINE 20MG/2ML IV (PEPCID) IVP SCH ×2 (13:08→20:33)
[2019-04-27] MEDS: AA 4.25% W/LYTES IN D5W IV SOL 1,000 ML IV SCH (13:09)
--- NOTE | 2019-04-27 13:23 | Oncology Progress Note ---
Subjective Date Seen by a Provider: Apr 27, 2019 Time Seen by a Provider: 11:00 Subjective/Events-last exam Pt had 2-3 diarrhea last night. She took one Imodium and it seems stopped. Had a few sips of broth this morning No fever, WBC 0.8 from chemo Data Review Labs Laboratory Tests 04/27/19 06:15 Laboratory Tests 04/25/19 04:26: Red Blood Count 3.68L, Hemoglobin 9.1L, Hematocrit 29L, Mean Corpuscular Volume 78L, Red Cell Distribution Width 17.8H, Neutrophils (%) (Auto) 94H, Lymphocytes (%) (Auto) 4L, Lymphocytes # (Auto) 0.2L, Sodium Level 130L, Blood Urea Nitrogen 26H, Glucose Level 128H, Calcium Level 7.9L, Total Protein 5.6L, Albumin 3.0L 04/27/19 06:15: Red Blood Count 3.34L, Hemoglobin 8.3L, Hematocrit 26L, Mean Corpuscular Volume 78L, Red Cell Distribution Width 17.1H, Neutrophils (%) (Auto) 36L, Lymphocytes (%) (Auto) 47H, Lymphocytes # (Auto) 0.4L, Sodium Level 128L, Blood Urea Nitrogen 24H, Glucose Level 106H, Calcium Level 7.4L, Total Protein 5.3L, Albumin 2.7L, White Blood Count 0.8*L, Neutrophils # (Auto) 0.3L, Carbon Dioxide Level 19L, Corrected Calcium 8.4L Physical Exam Vital Signs Vital Signs - First Documented 04/21/19 12:00 Temp 36.8 Pulse 80 Resp 16 B/P (MAP) 130/78 (95) Pulse Ox 93 O2 Delivery Room Air Capillary Refill : Less Than 3 SecondsLess Than 3 Seconds Height, Weight, BMI Height: '" Weight: lbs. oz. kg; 27.33 BMI Method: General Appearance: No Apparent Distress HEENT: PERRL/EOMI Respiratory: No Accessory Muscle Use, No Respiratory Distress Gastrointestinal: Soft, Distended Extremity: Non Tender, No Calf Tenderness, No Pedal Edema Neurologic/Psychiatric: Alert, Oriented x3 Impression & Plan Impression & Plan 1. Metastatic breast cancer with bone mets and peritoneal carcinomatosis. Day 5 post chemo Taxotere. 2. n/v/d. 3. hyponatremia 4. neutropenia from chemo Plan: Continue scheduled dexamethasone BID (decrease dose today), ondansetron and promethazine prn, pantoprazole and sucralfate as well as famotidine and prn lorazepam. Continue peripheral parenteral nutrition with Clinimix and add sodium. Increase activity and oral intake as tolerated. Not ready to go home today. Clinical Quality Measures DVT/VTE Risk/Contraindication: Risk Factor Score Per Nursin HUY STONE MD Apr 27, 2019 13:23
[2019-04-27] MEDS: GABAPENTIN 300 MG (NEURONTIN) CAP PO SCH (18:16)
[2019-04-27 20:59] VITALS: BP 125/78
[2019-04-28] MEDS: ONDANSETRON 4 MG/2 ML (SDV) Z0FRAN IVP PRN ×3 (01:18→23:13)
[2019-04-28] MEDS: AA 4.25% W/LYTES IN D5W IV SOL 1,000 ML IV SCH ×3 (01:18→23:49)
[2019-04-28] MEDS: LOPERAMIDE 2 MG (IMODIUM) TABLET PO PRN ×2 (06:04→13:24)
[2019-04-28] MEDS: PROMETHAZINE INJ 25 MG/ML (PHENERGAN) AMP IVP SCH ×3 (06:04→21:11)
[2019-04-28] MEDS: LEVOTHYROXINE 25 MCG (LEVOTHROID) TAB PO SCH (06:04)
[2019-04-28] MEDS: SUCRALFATE 1 GM (CARAFATE) TAB PO SCH ×4 (06:04→21:04)
[2019-04-28 06:37] LABS: BUN/CREATININE RATIO 29; CALCIUM 7.6 MG/DL (8.5-10.1); CARBON DIOXIDE 19 MMOL/L (21-32); CHLORIDE 102 MMOL/L (98-107); CREATININE SERUM 0.65 MG/DL (0.60-1.30); GFR ESTIMATED > 60; GLUCOSE 91 MG/DL (70-105); SODIUM 128 MMOL/L (135-145)
[2019-04-28] MEDS: PANTOPRAZOLE 40 MG (PROTONIX) VIAL IV SCH ×2 (08:10→21:04)
[2019-04-28] MEDS: DEXAMETHASONE 4 MG/ML SDV (DECADRON) IV SCH ×2 (08:10→21:04)
[2019-04-28] MEDS: FLUoxetine HCL 20 MG (PROzac) CAP PO SCH (08:10)
[2019-04-28] MEDS: FAMOTIDINE 20MG/2ML IV (PEPCID) IVP SCH ×2 (08:24→21:04)
[2019-04-28] MEDS: ACETAMINOPHEN 500 MG TAB (TYLENOL) PO PRN ×2 (08:24→18:05)
[2019-04-28 09:00] VITALS: BP 125/58
[2019-04-28] MEDS: D AMPHETAMINE SALT COMBO PO SCH (10:26)
--- OUTSIDE RECORDS SUMMARY | 2019-04-28 12:49 | XMS REPORT | Continuity of Care Document ---
Demographics Preferred Language Unknown Marital Status Unknown Presybeterian Affiliation Unknown Race Unknown Ethnic Group Unknown Author Organization Unknown Address Unknown Phone Unavailable Allergies Active Description Code Type Severity Reaction Onset Reported/Identified Relationship to Patient Clinical Status Yes ASPIRIN [id number] DRUG N/A N/A Yes COMPAZINE [id number] DRUG N/A N/A Yes PROCHLORPERAZINE [id number] DRUG N/A N/A Yes aspirin [id number] Drug Allergy Unknown N/A 01/13/2018 Yes prochlorperazine [id number] Drug Allergy Unknown N/A 01/13/2018 Yes morphine [id number] Drug Allergy Moderate Itching 04/18/2019 Medications There is no data. 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 11 ACQUIRED ABSENCE OF RIGHT BREAST AND NIP 02/13/1055 HUY STONE MD Ot Z90. 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 11 ACQUIRED ABSENCE OF RIGHT BREAST AND NIP 02/11/2018 HUY STONE MD Ot Z90. 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 02/17/2018 HUY STONE MD Ot Z79.899 OTHER DESKTOP SPECIALIST (CURRENT) DRUG THERAPY 02/17/2018 HUY STONE MD Ot Z90. 11 ACQUIRED ABSENCE OF RIGHT BREAST AND NIP 02/17/2018 HUY STONE MD Ot Z90. 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 03/02/2018 HUY STONE MD Ot Z79.899 OTHER ASSISTED (CURRENT) DRUG THERAPY 03/02/2018 HUY STONE MD Ot Z90. 11 ACQUIRED ABSENCE OF RIGHT BREAST AND NIP 03/02/2018 HUY STONE MD Ot Z90. 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 03/02/2018 HUY STONE MD Ot Z79.899 OTHER ASSISTED (CURRENT) DRUG THERAPY 03/02/2018 HUY STONE MD Ot Z90. 11 ACQUIRED ABSENCE OF RIGHT BREAST AND NIP 03/02/2018 HUY STONE MD Ot Z90. 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 03/03/2018 HUY STONE MD Ot Z79.899 OTHER DESKTOP SPECIALIST (CURRENT) DRUG THERAPY 03/03/2018 HUY STONE MD Ot Z90. 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 04/13/2018 HUY STONE MD Ot Z79.899 OTHER DESKTOP SPECIALIST (CURRENT) DRUG THERAPY 04/13/2018 HUY STONE MD Ot Z90. 11 ACQUIRED ABSENCE OF RIGHT BREAST AND NIP 04/13/2018 HUY STONE MD, Ot Z90. 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 04/14/2018 HUY STONE MD Ot Z79.899 OTHER ASSISTED (CURRENT) DRUG THERAPY 04/14/2018 HUY STONE MD Ot Z90. 11 ACQUIRED ABSENCE OF RIGHT BREAST AND NIP 04/14/2018 HUY STONE MD Ot Z90. 79 ACQUIRED ABSENCE OF OTHER GENITAL ORGAN( 05/31/2018 HUY STONE MD Ot B00. 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 05/31/2018 HUY STONE MD Ot D64. 9 ANEMIA, UNSPECIFIED 05/31/2018 HUY STONE MD, Ot D72.819 DECREASED WHITE BLOOD CELL COUNT, UNSPEC 05/31/2018 HUY STONE MD, Ot E03. 9 HYPOTHYROIDISM, UNSPECIFIED 05/31/2018 HUY STONE MD Ot I10 ESSENTIAL (PRIMARY) HYPERTENSION 05/31/2018 HUY STONE MD Ot I95. 9 HYPOTENSION, UNSPECIFIED 05/31/2018 HUY STONE MD Ot N39. 0 URINARY TRACT INFECTION, SITE NOT SPECIF 05/31/2018 HUY STONE MD Ot Z79.899 OTHER DESKTOP SPECIALIST (CURRENT) DRUG THERAPY 05/31/2018 HUY STONE MD Ot Z90. 11 ACQUIRED ABSENCE OF RIGHT BREAST AND NIP 05/31/2018 HUY STONE MD Ot Z90. 79 ACQUIRED ABSENCE OF OTHER GENITAL ORGAN( 06/01/2018 HUY STONE MD Ot B00. 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 06/01/2018 HUY STONE MD Ot D64. 9 ANEMIA, UNSPECIFIED 06/01/2018 HUY STONE MD Ot D72.819 DECREASED WHITE BLOOD CELL COUNT, UNSPEC 06/01/2018 HUY STONE MD Ot E03. 9 HYPOTHYROIDISM, UNSPECIFIED 06/01/2018 HUY STONE MD Ot I10 ESSENTIAL (PRIMARY) HYPERTENSION 06/01/2018 HUY STONE MD Ot I95. 9 HYPOTENSION, UNSPECIFIED 06/01/2018 HUY STONE MD Ot N39. 0 URINARY TRACT INFECTION, SITE NOT SPECIF 06/01/2018 HUY STONE MD, Ot Z79.899 OTHER DESKTOP SPECIALIST (CURRENT) DRUG THERAPY 06/01/2018 HUY STONE MD Ot Z90. 11 ACQUIRED ABSENCE OF RIGHT BREAST AND NIP 06/01/2018 HUY STONE MD Ot Z90. 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 06/03/2018 HUY STONE MD Ot Z79.899 OTHER ASSISTED (CURRENT) DRUG THERAPY 06/03/2018 HUY STONE MD Ot Z90. 11 ACQUIRED ABSENCE OF RIGHT BREAST AND NIP 06/03/2018 HUY STONE MD, Ot Z90. 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 06/04/2018 HUY STONE MD, Ot Z79.899 OTHER ASSISTED (CURRENT) DRUG THERAPY 06/04/2018 HUY STONE MD, Ot Z90. 11 ACQUIRED ABSENCE OF RIGHT BREAST AND NIP 06/04/2018 HUY STONE MD, Ot Z90. 79 ACQUIRED ABSENCE OF OTHER GENITAL ORGAN( 06/06/2018 HUY STONE MD Ot B00. 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 9 ANEMIA, UNSPECIFIED 06/06/2018 HUY STONE MD Ot D72.819 DECREASED WHITE BLOOD CELL COUNT, UNSPEC 06/06/2018 HUY STONE MD Ot E03. 9 HYPOTHYROIDISM, UNSPECIFIED 06/06/2018 HUY STONE MD Ot I10 ESSENTIAL (PRIMARY) HYPERTENSION 06/06/2018 HUY STONE MD Ot I95. 9 HYPOTENSION, UNSPECIFIED 06/06/2018 HUY STONE MD Ot N39. 0 URINARY TRACT INFECTION, SITE NOT SPECIF 06/06/2018 HUY STONE MD Ot Z79.899 OTHER DESKTOP SPECIALIST (CURRENT) DRUG THERAPY 06/06/2018 HUY STONE MD Ot Z90. 11 ACQUIRED ABSENCE OF RIGHT BREAST AND NIP 06/06/2018 HUY STONE MD Ot Z90. 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 07/08/2018 HUY STONE MD Ot Z79.899 OTHER DESKTOP SPECIALIST (CURRENT) DRUG THERAPY 07/08/2018 HUY STONE MD Ot Z90. 11 ACQUIRED ABSENCE OF RIGHT BREAST AND NIP 07/08/2018 HUY STONE MD Ot Z90. 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 07/14/2018 HUY STONE MD Ot Z79.899 OTHER ASSISTED (CURRENT) DRUG THERAPY 07/14/2018 HUY STONE MD Ot Z90. 11 ACQUIRED ABSENCE OF RIGHT BREAST AND NIP 07/14/2018 HUY STONE MD Ot Z90. 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 08/05/2018 HUY STONE MD Ot Z79.899 OTHER ASSISTED (CURRENT) DRUG THERAPY 08/05/2018 HUY STONE MD Ot Z90. 11 ACQUIRED ABSENCE OF RIGHT BREAST AND NIP 08/05/2018 HUY STONE MD Ot Z90. 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 08/05/2018 HUY STONE MD Ot Z79.899 OTHER DESKTOP SPECIALIST (CURRENT) DRUG THERAPY 08/05/2018 HUY STONE MD Ot Z90. 11 ACQUIRED ABSENCE OF RIGHT BREAST AND NIP 08/05/2018 HUY STONE MD Ot Z90. 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 08/17/2018 HUY STONE MD Ot Z79.899 OTHER DESKTOP SPECIALIST (CURRENT) DRUG THERAPY 08/17/2018 HUY STONE MD Ot Z90. 11 ACQUIRED ABSENCE OF RIGHT BREAST AND NIP 08/17/2018 HUY STONE MD, Ot Z90. 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 09/01/2018 HUY STONE MD Ot Z51. 0 ENCOUNTER FOR ANTINEOPLASTIC RADIATION T 09/01/2018 HUY STONE MD Ot Z79.899 OTHER ASSISTED (CURRENT) DRUG THERAPY 09/01/2018 HUY STONE MD Ot Z90. 11 ACQUIRED ABSENCE OF RIGHT BREAST AND NIP 09/01/2018 HUY STONE MD Ot Z90. 79 ACQUIRED ABSENCE OF OTHER GENITAL ORGAN( 09/03/2018 ERIC BRADY MD Ot C50.111 MALIGNANT NEOPLASM OF CENTRAL PORTION OF 09/03/2018 ERIC BRADY MD Ot 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 09/03/2018 ERIC BRADY MD Ot C79.51 SECONDARY MALIGNANT NEOPLASM OF BONE 09/03/2018 ERIC BRADY MD Ot Z79.899 OTHER ASSISTED (CURRENT) DRUG THERAPY 09/03/2018 ERIC BRADY MD Ot Z90.11 ACQUIRED ABSENCE OF RIGHT BREAST AND NIP 09/03/2018 ERIC BRADY MD Ot Z90.79 ACQUIRED ABSENCE OF OTHER GENITAL ORGAN( 09/03/2018 ERIC BRADY MD Ot C50.111 MALIGNANT NEOPLASM OF CENTRAL PORTION OF 09/03/2018 ERIC BRADY MD Ot 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 09/03/2018 ERIC BRADY MD Ot C79.51 SECONDARY MALIGNANT NEOPLASM OF BONE 09/03/2018 ERIC BRADY MD Ot Z51.0 ENCOUNTER FOR ANTINEOPLASTIC RADIATION T 09/03/2018 ERIC BRADY MD Ot Z79.899 OTHER ASSISTED (CURRENT) DRUG THERAPY 09/03/2018 ERIC BRADY MD Ot Z90.11 ACQUIRED ABSENCE OF RIGHT BREAST AND NIP 09/03/2018 ERIC BRADY MD Ot Z90.79 ACQUIRED ABSENCE OF OTHER GENITAL ORGAN( 09/03/2018 HUY STONE MD, Ot C50.111 MALIGNANT NEOPLASM OF CENTRAL PORTION OF 09/03/2018 HUY STONE MD Ot 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 0 ENCOUNTER FOR ANTINEOPLASTIC RADIATION T 09/03/2018 HUY STONE MD Ot Z79.899 OTHER DESKTOP SPECIALIST (CURRENT) DRUG THERAPY 09/03/2018 HUY STONE MD Ot Z90. 11 ACQUIRED ABSENCE OF RIGHT BREAST AND NIP 09/03/2018 HUY STONE MD Ot Z90. 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 09/04/2018 HUY STONE MD Ot Z51. 0 ENCOUNTER FOR ANTINEOPLASTIC RADIATION T 09/04/2018 HUY STONE MD Ot Z79.899 OTHER DESKTOP SPECIALIST (CURRENT) DRUG THERAPY 09/04/2018 HUY STONE MD Ot Z90. 11 ACQUIRED ABSENCE OF RIGHT BREAST AND NIP 09/04/2018 HUY STONE MD Ot Z90. 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 09/23/2018 HUY STONE MD Ot Z51. 0 ENCOUNTER FOR ANTINEOPLASTIC RADIATION T 09/23/2018 HUY STONE MD Ot Z79.899 OTHER ASSISTED (CURRENT) DRUG THERAPY 09/23/2018 HUY STONE MD Ot Z90. 11 ACQUIRED ABSENCE OF RIGHT BREAST AND NIP 09/23/2018 HUY STONE MD Ot Z90. 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 10/16/2018 HUY STONE MD Ot Z51. 0 ENCOUNTER FOR ANTINEOPLASTIC RADIATION T 10/16/2018 HUY STONE MD Ot Z79.899 OTHER ASSISTED (CURRENT) DRUG THERAPY 10/16/2018 HUY STONE MD Ot Z90. 11 ACQUIRED ABSENCE OF RIGHT BREAST AND NIP 10/16/2018 UHY STONE MD Ot Z90. 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 10/20/2018 HUY STONE MD Ot Z51. 0 ENCOUNTER FOR ANTINEOPLASTIC RADIATION T 10/20/2018 HUY STONE MD Ot Z79.899 OTHER DESKTOP SPECIALIST (CURRENT) DRUG THERAPY 10/20/2018 HUY STONE MD Ot Z90. 11 ACQUIRED ABSENCE OF RIGHT BREAST AND NIP 10/20/2018 HUY STONE MD Ot Z90. 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 12/02/2018 HUY STONE MD Ot Z51. 0 ENCOUNTER FOR ANTINEOPLASTIC RADIATION T 12/02/2018 HUY STONE MD Ot Z79.899 OTHER ASSISTED (CURRENT) DRUG THERAPY 12/02/2018 HUY STONE MD Ot Z90. 11 ACQUIRED ABSENCE OF RIGHT BREAST AND NIP 12/02/2018 HUY STONE MD Ot Z90. 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 12/03/2018 HUY STONE MD Ot Z51. 0 ENCOUNTER FOR ANTINEOPLASTIC RADIATION T 12/03/2018 HUY STONE MD Ot Z79.899 OTHER ASSISTED (CURRENT) DRUG THERAPY 12/03/2018 HUY STONE MD Ot Z90. 11 ACQUIRED ABSENCE OF RIGHT BREAST AND NIP 12/03/2018 HUY STONE MD Ot Z90. 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 12/09/2018 HUY STONE MD Ot Z51. 0 ENCOUNTER FOR ANTINEOPLASTIC RADIATION T 12/09/2018 HUY STONE MD Ot Z79.899 OTHER ASSISTED (CURRENT) DRUG THERAPY 12/09/2018 HUY STONE MD Ot Z90. 11 ACQUIRED ABSENCE OF RIGHT BREAST AND NIP 12/09/2018 HUY STONE MD Ot Z90. 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 12/24/2018 HUY STONE MD Ot Z79.899 OTHER ASSISTED (CURRENT) DRUG THERAPY 12/24/2018 HUY STONE MD Ot Z90. 11 ACQUIRED ABSENCE OF RIGHT BREAST AND NIP 12/24/2018 HUY STONE MD Ot Z90. 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 01/11/2019 HUY STONE MD Ot Z79.899 OTHER DESKTOP SPECIALIST (CURRENT) DRUG THERAPY 01/11/2019 HUY STONE MD Ot Z90. 11 ACQUIRED ABSENCE OF RIGHT BREAST AND NIP 01/11/2019 HUY STONE MD Ot Z90. 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 03/09/2019 HUY STONE MD Ot Z79.899 OTHER ASSISTED (CURRENT) DRUG THERAPY 03/09/2019 HYU STONE MD Ot Z90. 11 ACQUIRED ABSENCE OF RIGHT BREAST AND NIP 03/09/2019 HUY STONE MD Ot Z90. 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 03/11/2019 HUY STONE MD Ot Z79.899 OTHER DESKTOP SPECIALIST (CURRENT) DRUG THERAPY 03/11/2019 HUY STONE MD Ot Z90. 11 ACQUIRED ABSENCE OF RIGHT BREAST AND NIP 03/11/2019 HUY STONE MD Ot Z90. 79 ACQUIRED ABSENCE OF OTHER GENITAL ORGAN( 03/22/2019 HUY STONE MD Ot C50.111 MALIGNANT NEOPLASM OF CENTRAL PORTION OF 03/22/2019 HUY STONE MD Ot C78. 6 SECONDARY MALIGNANT NEOPLASM OF RETROPER 03/22/2019 HUY STONE MD Ot 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 03/22/2019 HUY STONE MD Ot Z79.899 OTHER DESKTOP SPECIALIST (CURRENT) DRUG THERAPY 03/22/2019 HUY STONE MD Ot Z90. 11 ACQUIRED ABSENCE OF RIGHT BREAST AND NIP 03/22/2019 HUY STONE MD Ot Z90. 79 ACQUIRED ABSENCE OF OTHER GENITAL ORGAN( 03/22/2019 HUY STONE MD Ot C50.111 MALIGNANT NEOPLASM OF CENTRAL PORTION OF 03/22/2019 HUY STONE MD Ot C78. 6 SECONDARY MALIGNANT NEOPLASM OF RETROPER 03/22/2019 HUY STONE MD Ot 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 03/22/2019 HUY STONE MD Ot Z79.899 OTHER ASSISTED (CURRENT) DRUG THERAPY 03/22/2019 HUY STONE MD Ot Z90. 11 ACQUIRED ABSENCE OF RIGHT BREAST AND NIP 03/22/2019 HUY STONE MD Ot Z90. 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 6 SECONDARY MALIGNANT NEOPLASM OF RETROPER 03/23/2019 HUY TSONE MD Ot 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 03/23/2019 HUY STONE MD Ot Z79.899 OTHER ASSISTED (CURRENT) DRUG THERAPY 03/23/2019 HUY STONE MD Ot Z90. 11 ACQUIRED ABSENCE OF RIGHT BREAST AND NIP 03/23/2019 HUY STONE MD Ot Z90. 79 ACQUIRED ABSENCE OF OTHER GENITAL ORGAN( 2019 HUY STONE MD Ot C50.111 MALIGNANT NEOPLASM OF CENTRAL PORTION OF 2019 HUY STONE MD Ot C78. 6 SECONDARY MALIGNANT NEOPLASM OF RETROPER 2019 HUY STONE MD Ot 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 2019 HUY STONE MD Ot Z79.899 OTHER ASSISTED (CURRENT) DRUG THERAPY 2019 HUY STONE MD Ot Z90. 11 ACQUIRED ABSENCE OF RIGHT BREAST AND NIP 2019 HUY STONE MD Ot Z90. 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 04/01/2019 HUY STONE MD Ot R51 HEADACHE 04/01/2019 HUY STONE MD, Ot C50.911 MALIGNANT NEOPLASM OF UNSP SITE OF RIGHT 04/01/2019 HUY STONE MD, Ot 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 04/01/2019 HUY STONE MD Ot R18. 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 6 SECONDARY MALIGNANT NEOPLASM OF RETROPER 04/05/2019 HUY STONE MD, Ot 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 04/05/2019 HUY STONE MD Ot R18. 8 OTHER ASCITES 04/12/2019 HUY STONE MD, Ot C50.911 MALIGNANT NEOPLASM OF UNSP SITE OF RIGHT 04/12/2019 HUY STONE MD, Ot 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 04/12/2019 HUY STONE MD Ot R18. 8 OTHER ASCITES 04/12/2019 HUY STONE MD Ot R42 DIZZINESS AND GIDDINESS 04/12/2019 HUY STONE MD Ot C50.111 MALIGNANT NEOPLASM OF CENTRAL PORTION OF 04/12/2019 HUY STONE MD Ot C78. 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 04/12/2019 HUY STONE MD Ot Z79.899 OTHER ASSISTED (CURRENT) DRUG THERAPY 04/12/2019 HUY STONE MD Ot Z90. 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 04/13/2019 HUY STONE MD Ot Z79.899 OTHER ASSISTED (CURRENT) DRUG THERAPY 04/13/2019 HUY STONE MD, Ot Z90. 11 ACQUIRED ABSENCE OF RIGHT BREAST AND NIP 04/13/2019 HUY STONE MD, Ot Z90. 79 ACQUIRED ABSENCE OF OTHER GENITAL ORGAN( 04/13/2019 HUY STONE MD Ot C50.911 MALIGNANT NEOPLASM OF UNSP SITE OF RIGHT 04/13/2019 HUY STONE MD, Ot 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 04/13/2019 HUY STONE MD Ot R18. 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 04/13/2019 HUY STONE MD, Ot R18. 8 OTHER ASCITES 04/13/2019 TICO GALAN MD, Ot C50.919 MALIGNANT NEOPLASM OF UNSP SITE OF UNSPE 04/13/2019 TICO GALAN MD, Ot C79.51 SECONDARY MALIGNANT NEOPLASM OF BONE 04/13/2019 TICO GALAN MD Ot E86.1 HYPOVOLEMIA 04/13/2019 TICO GALAN MD Ot I10 ESSENTIAL (PRIMARY) HYPERTENSION 04/13/2019 TICO GALAN MD, Ot R10.11 RIGHT UPPER QUADRANT PAIN 04/13/2019 TICO GALAN MD, Ot Z87.19 PERSONAL HISTORY OF OTHER DISEASES OF TH 04/13/2019 TICO GALAN MD, Ot Z88.6 ALLERGY STATUS TO ANALGESIC AGENT STATUS 04/13/2019 TICO GALAN MD, Ot Z88.8 ALLERGY STATUS TO OTH DRUG/MEDS/BIOL SUB 04/13/2019 TICO GALAN MD Ot Z90.710 ACQUIRED ABSENCE OF BOTH CERVIX AND UTER 04/14/2019 HUY STONE MD, Ot 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 04/14/2019 HUY STONE MD Ot Z79.899 OTHER ASSISTED (CURRENT) DRUG THERAPY 04/14/2019 HUY STONE MD, Ot Z90. 11 ACQUIRED ABSENCE OF RIGHT BREAST AND NIP 04/14/2019 HUY STONE MD, Ot Z90. 79 ACQUIRED ABSENCE OF OTHER GENITAL ORGAN( 04/14/2019 HUY STONE MD, Ot C50.911 MALIGNANT NEOPLASM OF UNSP SITE OF RIGHT 04/14/2019 HUY STONE MD, Ot 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 04/14/2019 HUY STONE MD Ot R18. 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 04/14/2019 HUY STONE MD, Ot R18. 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 04/14/2019 HUY STONE MD Ot Z79.899 OTHER DESKTOP SPECIALIST (CURRENT) DRUG THERAPY 04/14/2019 HUY STONE MD, Ot Z90. 11 ACQUIRED ABSENCE OF RIGHT BREAST AND NIP 04/14/2019 HUY STONE MD, Ot Z90. 79 ACQUIRED ABSENCE OF OTHER GENITAL ORGAN( 04/14/2019 HUY STONE MD, Ot C50.911 MALIGNANT NEOPLASM OF UNSP SITE OF RIGHT 04/14/2019 HUY STONE MD, Ot 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 04/14/2019 HUY STONE MD, Ot R18. 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 04/14/2019 HUY STONE MD Ot R18. 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 04/14/2019 HUY STONE MD, Ot Z79.899 OTHER ASSISTED (CURRENT) DRUG THERAPY 04/14/2019 HUY STONE MD, Ot Z90. 11 ACQUIRED ABSENCE OF RIGHT BREAST AND NIP 04/14/2019 HUY STONE MD, Ot Z90. 79 ACQUIRED ABSENCE OF OTHER GENITAL ORGAN( 04/14/2019 HUY STONE MD, Ot C50.911 MALIGNANT NEOPLASM OF UNSP SITE OF RIGHT 04/14/2019 HUY STONE MD, Ot 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 04/14/2019 HUY STONE MD, Ot R18. 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 04/14/2019 HUY STONE MD Ot R18. 8 OTHER ASCITES 04/15/2019 ANGELIA FRAUSTO, TICO Ladd Ot C50.919 MALIGNANT NEOPLASM OF UNSP SITE OF UNSPE 04/15/2019 TICO GALAN MD, Ot C79.51 SECONDARY MALIGNANT NEOPLASM OF BONE 04/15/2019 TICO GALAN MD, Ot E86.1 HYPOVOLEMIA 04/15/2019 TICO GALAN MD, Ot I10 ESSENTIAL (PRIMARY) HYPERTENSION 04/15/2019 TICO GALAN MD, Ot R10.11 RIGHT UPPER QUADRANT PAIN 04/15/2019 TICO GALAN MD, Ot Z87.19 PERSONAL HISTORY OF OTHER DISEASES OF TH 04/15/2019 TICO GALAN MD, Ot Z88.6 ALLERGY STATUS TO ANALGESIC AGENT STATUS 04/15/2019 TICO GALAN MD, Ot Z88.8 ALLERGY STATUS TO OTH DRUG/MEDS/BIOL SUB 04/15/2019 TICO GALAN MD, Ot Z90.710 ACQUIRED ABSENCE OF BOTH CERVIX AND UTER 04/15/2019 S N1339 Othe r hydronephrosis 04/15/2019 P R112 Nause a with vomiting, unspecified 04/15/2019 S N1339 Othe r hydronephrosis 04/15/2019 P R112 Nause a with vomiting, unspecified 04/15/2019 TICO GALAN MD, Ot K76.89 OTHER SPECIFIED DISEASES OF LIVER 04/15/2019 TICO GALAN MD, Ot K82.8 OTHER SPECIFIED DISEASES OF GALLBLADDER 04/15/2019 LEANNE DO, NICKIE D Ot R18. 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 04/17/2019 HUY STONE MD, Ot Z79.899 OTHER ASSISTED (CURRENT) DRUG THERAPY 04/17/2019 HUY STONE MD, Ot 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 79 ACQUIRED ABSENCE OF OTHER GENITAL ORGAN( 04/17/2019 HUY STONE MD, Ot C50.911 MALIGNANT NEOPLASM OF UNSP SITE OF RIGHT 04/17/2019 HUY STONE MD, Ot 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 04/17/2019 HUY STONE MD, Ot R18. 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 04/17/2019 HUY STONE MD Ot R18. 8 OTHER ASCITES 04/17/2019 TICO GALAN MD Ot K76.89 OTHER SPECIFIED DISEASES OF LIVER 04/17/2019 TICO GALAN MD Ot K82.8 OTHER SPECIFIED DISEASES OF GALLBLADDER 04/17/2019 NICKIE PERDOMO DO Ot R18. 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 04/17/2019 HUY STONE MD, Ot Z79.899 OTHER DESKTOP SPECIALIST (CURRENT) DRUG THERAPY 04/17/2019 HUY STONE MD, Ot 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 79 ACQUIRED ABSENCE OF OTHER GENITAL ORGAN( 04/17/2019 HUY STONE MD, Ot C50.911 MALIGNANT NEOPLASM OF UNSP SITE OF RIGHT 04/17/2019 HUY STONE MD, Ot 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 04/17/2019 HUY STONE MD, Ot R18. 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 04/17/2019 HUY STONE MD, Ot R18. 8 OTHER ASCITES 04/17/2019 TICO GALAN MD Ot K76.89 OTHER SPECIFIED DISEASES OF LIVER 04/17/2019 TICO GALAN MD Ot K82.8 OTHER SPECIFIED DISEASES OF GALLBLADDER 04/17/2019 NICKIE PERDOMO DO Ot R18. 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 04/17/2019 HUY STONE MD, Ot Z79.899 OTHER ASSISTED (CURRENT) DRUG THERAPY 04/17/2019 HUY STONE MD, Ot 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 79 ACQUIRED ABSENCE OF OTHER GENITAL ORGAN( 04/17/2019 HUY STONE MD, Ot C50.911 MALIGNANT NEOPLASM OF UNSP SITE OF RIGHT 04/17/2019 HUY STONE MD, Ot 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 04/17/2019 HUY STONE MD, Ot R18. 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 04/17/2019 HUY STONE MD Ot R18. 8 OTHER ASCITES 04/17/2019 TICO GALAN MD Ot K76.89 OTHER SPECIFIED DISEASES OF LIVER 04/17/2019 TICO GALAN MD Ot K82.8 OTHER SPECIFIED DISEASES OF GALLBLADDER 04/17/2019 NICKIE PERDOMO DO Ot R18. 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 04/17/2019 HUY STONE MD, Ot Z79.899 OTHER ASSISTED (CURRENT) DRUG THERAPY 04/17/2019 HUY STONE MD, Ot 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 79 ACQUIRED ABSENCE OF OTHER GENITAL ORGAN( 04/17/2019 HUY STONE MD, Ot C50.911 MALIGNANT NEOPLASM OF UNSP SITE OF RIGHT 04/17/2019 HUY STONE MD, Ot 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 04/17/2019 HUY STONE MD, Ot R18. 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 04/17/2019 HUY STONE MD Ot R18. 8 OTHER ASCITES 04/17/2019 TICO GALAN MD Ot K76.89 OTHER SPECIFIED DISEASES OF LIVER 04/17/2019 TICO GALAN MD Ot K82.8 OTHER SPECIFIED DISEASES OF GALLBLADDER 04/17/2019 NICKIE PERDOMO DO Ot R18. 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 04/17/2019 HUY STONE MD, Ot Z79.899 OTHER DESKTOP SPECIALIST (CURRENT) DRUG THERAPY 04/17/2019 HUY STONE MD, Ot 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 79 ACQUIRED ABSENCE OF OTHER GENITAL ORGAN( 04/17/2019 HUY STONE MD, Ot C50.911 MALIGNANT NEOPLASM OF UNSP SITE OF RIGHT 04/17/2019 HUY STONE MD, Ot 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 04/17/2019 HUY STONE MD, Ot R18. 8 OTHER ASCITES 04/17/2019 HUY STONE MD Ot R42 DIZZINESS AND GIDDINESS 04/17/2019 HUY STONE MD, Ot C50.311 MALIG NEOPLM OF LOWER-INNER QUADRANT OF 04/17/2019 HUY STONE MD, Ot 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 04/17/2019 HUY STONE MD Ot R18. 8 OTHER ASCITES 04/17/2019 TICO GALAN MD Ot K76.89 OTHER SPECIFIED DISEASES OF LIVER 04/17/2019 TICO GALAN MD Ot K82.8 OTHER SPECIFIED DISEASES OF GALLBLADDER 04/17/2019 PERDOMO DO, NICKIE Song Ot R18. 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 04/19/2019 HUY STONE MD, Ot Z79.899 OTHER DESKTOP SPECIALIST (CURRENT) DRUG THERAPY 04/19/2019 HUY STONE MD, Ot Z90. 11 ACQUIRED ABSENCE OF RIGHT BREAST AND NIP 04/19/2019 HUY STONE MD, Ot Z90. 79 ACQUIRED ABSENCE OF OTHER GENITAL ORGAN( 04/19/2019 HUY STONE MD, Ot C50.911 MALIGNANT NEOPLASM OF UNSP SITE OF RIGHT 04/19/2019 HUY STONE MD, Ot 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 04/19/2019 HUY STONE MD Ot R18. 8 OTHER ASCITES 04/19/2019 HUY STONE MD Ot R42 DIZZINESS AND GIDDINESS 04/19/2019 HUY STONE MD Ot C50.311 MALIG NEOPLM OF LOWER-INNER QUADRANT OF 04/19/2019 HUY STONE MD Ot 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 04/19/2019 HUY STONE MD Ot R18. 8 OTHER ASCITES 04/19/2019 TICO GALAN MD Ot K76.89 OTHER SPECIFIED DISEASES OF LIVER 04/19/2019 TICO GALAN MD Ot K82.8 OTHER SPECIFIED DISEASES OF GALLBLADDER 04/19/2019 NICKIE PERDOMO DO Ot R18. 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 04/21/2019 HUY STONE MD Ot Z79.899 OTHER ASSISTED (CURRENT) DRUG THERAPY 04/21/2019 HUY STONE MD, Ot 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 04/21/2019 HUY STONE MD Ot R18. 8 OTHER ASCITES 04/21/2019 HUY STONE MD Ot R42 DIZZINESS AND GIDDINESS 04/21/2019 HUY STONE MD Ot C50.311 MALIG NEOPLM OF LOWER-INNER QUADRANT OF 04/21/2019 HUY STONE MD Ot 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 8 OTHER ASCITES 04/21/2019 TICO GALAN MD Ot K76.89 OTHER SPECIFIED DISEASES OF LIVER 04/21/2019 TICO GALAN MD Ot K82.8 OTHER SPECIFIED DISEASES OF GALLBLADDER 04/21/2019 PERDOMO DO, NICKIE D Ot R18. 8 OTHER ASCITES 04/21/2019 WILFREDO PAREDES Ot 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 04/21/2019 WILFREDO PAREDES Ot C79.51 SECONDARY MALIGNANT NEOPLASM OF BONE 04/21/2019 WILFREDO PAREDES Ot E03.9 HYPOTHYROIDISM, UNSPECIFIED 04/21/2019 WILFREDO PAREDES Ot E86.0 DEHYDRATION 04/21/2019 WILFREDO PAREDES Ot F32.9 MAJOR DEPRESSIVE DISORDER, SINGLE EPISOD 04/21/2019 WILFREDO PAREDES Ot F39 UNSPECIFIED MOOD [AFFECTIVE] DISORDER 04/21/2019 WILFREDO PAREDES Ot F90.9 ATTENTION-DEFICIT HYPERACTIVITY DISORDER 04/21/2019 WILFREDO PAREDES Ot G47.9 SLEEP DISORDER, UNSPECIFIED 04/21/2019 WILFREDO PAREDES Ot G62.9 POLYNEUROPATHY, UNSPECIFIED 04/21/2019 WILFREDO PAREDES Ot G89.3 NEOPLASM RELATED PAIN (ACUTE) (CHRONIC) 04/21/2019 WILFREDO PAREDES Ot I10 ESSENTIAL (PRIMARY) HYPERTENSION 04/21/2019 WILFREDO PAREDES Ot J45.909 UNSPECIFIED ASTHMA, UNCOMPLICATED 04/21/2019 WILFREDO PAREDES Ot K21.9 GASTRO-ESOPHAGEAL REFLUX DISEASE WITHOUT 04/21/2019 WILFREDO PAREDES Ot N13.1 HYDRONEPHROSIS W URETERAL STRICTURE, NEC 04/21/2019 WILFREDO PAREDES Ot R11.2 NAUSEA WITH VOMITING, UNSPECIFIED 04/21/2019 WILFREDO PAREDES Ot R18.0 MALIGNANT ASCITES 04/21/2019 WILFREDO PAREDES Ot T45.1X5 A ADVERSE EFFECT OF ANTINEOPLASTIC AND IMM 04/21/2019 WILFREDO PAREDES Ot Z85.3 PERSONAL HISTORY OF MALIGNANT NEOPLASM O 04/21/2019 WILFREDO PAREDES Ot 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 04/21/2019 WILFREDO PAREDES Ot C79.51 SECONDARY MALIGNANT NEOPLASM OF BONE 04/21/2019 WILFREDO PAREDES Ot E03.9 HYPOTHYROIDISM, UNSPECIFIED 04/21/2019 WILFREDO PAREDES Ot E86.0 DEHYDRATION 04/21/2019 WILFREDO PAREDES Ot F32.9 MAJOR DEPRESSIVE DISORDER, SINGLE EPISOD 04/21/2019 WILFREDO PAREDES Desirae Ot F39 UNSPECIFIED MOOD [AFFECTIVE] DISORDER 04/21/2019 WILFREDO PAREDES Desirae Ot F90.9 ATTENTION-DEFICIT HYPERACTIVITY DISORDER 04/21/2019 WILFREDO PAREDES Desirae Ot G47.9 SLEEP DISORDER, UNSPECIFIED 04/21/2019 WILFREDO PAREDES Desirae Ot G62.9 POLYNEUROPATHY, UNSPECIFIED 04/21/2019 LENAAMYGET Desirae Ot G89.3 NEOPLASM RELATED PAIN (ACUTE) (CHRONIC) 04/21/2019 LENAWILFREDO Ot I10 ESSENTIAL (PRIMARY) HYPERTENSION 04/21/2019 LENAAMYGET Desirae Ot J45.909 UNSPECIFIED ASTHMA, UNCOMPLICATED 04/21/2019 LENAAMYGET Desirae Ot K21.9 GASTRO-ESOPHAGEAL REFLUX DISEASE WITHOUT 04/21/2019 LENAAMYGET Desirae Ot N13.1 HYDRONEPHROSIS W URETERAL STRICTURE, NEC 04/21/2019 LENAWILFREDO Ot R11.2 NAUSEA WITH VOMITING, UNSPECIFIED 04/21/2019 LENAWILFREDO Ot R18.0 MALIGNANT ASCITES 04/21/2019 LENA WILFREDO Desirae Ot T45.1X5 A ADVERSE EFFECT OF ANTINEOPLASTIC AND IMM 04/21/2019 LENA WILFREDO Desirae Ot Z85.3 PERSONAL HISTORY OF MALIGNANT NEOPLASM O 04/21/2019 HUY STONE MD Ot C50.111 MALIGNANT NEOPLASM OF CENTRAL PORTION OF 04/21/2019 HUY STONE MD Ot 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 04/21/2019 HUY STONE MD, Ot Z79.899 OTHER ASSISTED (CURRENT) DRUG THERAPY 04/21/2019 HUY STONE MD, Ot 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 04/21/2019 XUN MD, ROQUE-MARLO Ot R18. 8 OTHER ASCITES 04/21/2019 HUY STONE MD Ot R42 DIZZINESS AND GIDDINESS 04/21/2019 HUY STONE MD, Ot C50.311 MALIG NEOPLM OF LOWER-INNER QUADRANT OF 04/21/2019 HUY STNOE MD Ot 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 04/21/2019 HUY STONE MD Ot R51 HEADACHE 04/21/2019 HUY STONE MD, Ot C50.311 MALIG NEOPLM OF LOWER-INNER QUADRANT OF 04/21/2019 HUY STONE MD, Ot 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 8 OTHER ASCITES 04/21/2019 ANGELIA FRAUSTO, TICO Ladd Ot K76.89 OTHER SPECIFIED DISEASES OF LIVER 04/21/2019 TICO GALAN MD Ot K82.8 OTHER SPECIFIED DISEASES OF GALLBLADDER 04/21/2019 NICKIE PERDOMO DO Ot R18. 8 OTHER ASCITES 04/21/2019 HUY STONE MD Ot C50.111 MALIGNANT NEOPLASM OF CENTRAL PORTION OF 04/21/2019 HUY STONE MD, Ot 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 04/21/2019 HUY STONE MD Ot Z79.899 OTHER DESKTOP SPECIALIST (CURRENT) DRUG THERAPY 04/21/2019 HUY STONE MD, Ot Z90. 11 ACQUIRED ABSENCE OF RIGHT BREAST AND NIP 04/21/2019 HUY STONE MD Ot Z90. 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 04/21/2019 HUY STONE MD Ot R18. 8 OTHER ASCITES 04/21/2019 HUY STONE MD Ot R42 DIZZINESS AND GIDDINESS 04/21/2019 HUY STONE MD Ot C50.311 MALIG NEOPLM OF LOWER-INNER QUADRANT OF 04/21/2019 HUY STONE MD Ot 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 04/21/2019 HUY STONE MD, Ot R51 HEADACHE 04/21/2019 HUY STONE MD, Ot C50.311 MALIG NEOPLM OF LOWER-INNER QUADRANT OF 04/21/2019 HUY STONE MD Ot 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 8 OTHER ASCITES 04/21/2019 TICO GALAN MD Ot K76.89 OTHER SPECIFIED DISEASES OF LIVER 04/21/2019 TICO GALAN MD Ot K82.8 OTHER SPECIFIED DISEASES OF GALLBLADDER 04/21/2019 NICKIE PERDOMO DO Ot R18. 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 04/21/2019 HUY STONE MD Ot Z79.899 OTHER DESKTOP SPECIALIST (CURRENT) DRUG THERAPY 04/21/2019 HUY STONE MD, Ot Z90. 11 ACQUIRED ABSENCE OF RIGHT BREAST AND NIP 04/21/2019 HUY STONE MD Ot Z90. 79 ACQUIRED ABSENCE OF OTHER GENITAL ORGAN( 04/21/2019 HUY STONE MD, Ot C50.311 MALIG NEOPLM OF LOWER-INNER QUADRANT OF 04/21/2019 HUY STONE MD Ot 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 04/21/2019 HUY STONE MD Ot R18. 8 OTHER ASCITES 04/21/2019 HUY STONE MD Ot R42 DIZZINESS AND GIDDINESS 04/21/2019 HUY STONE MD Ot C50.311 MALIG NEOPLM OF LOWER-INNER QUADRANT OF 04/21/2019 HUY STONE MD Ot 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 8 OTHER ASCITES 04/21/2019 TICO GALAN MD Ot K76.89 OTHER SPECIFIED DISEASES OF LIVER 04/21/2019 TICO GALAN MD Ot K82.8 OTHER SPECIFIED DISEASES OF GALLBLADDER 04/21/2019 LEANNE DO, NICKIE Zuleta Ot R18. 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 04/21/2019 HUY STONE MD, Ot Z79.899 OTHER ASSISTED (CURRENT) DRUG THERAPY 04/21/2019 HUY STONE MD, Ot 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 04/21/2019 HUY STONE MD, Ot R18. 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 8 OTHER ASCITES 04/21/2019 TICO GALAN MD Ot K76.89 OTHER SPECIFIED DISEASES OF LIVER 04/21/2019 TICO GALAN MD Ot K82.8 OTHER SPECIFIED DISEASES OF GALLBLADDER 04/21/2019 INCKIE PERDOMO DO Ot R18. 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 04/22/2019 HUY STONE MD, Ot Z79.899 OTHER ASSISTED (CURRENT) DRUG THERAPY 04/22/2019 HUY STONE MD, Ot Z90. 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 04/22/2019 HUY STONE MD Ot R18. 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 04/22/2019 XUN MD, ROQUE-MARLO Ot R18. 8 OTHER ASCITES 04/22/2019 TICO GALAN MD, Ot K76.89 OTHER SPECIFIED DISEASES OF LIVER 04/22/2019 TICO GALAN MD, Ot K82.8 OTHER SPECIFIED DISEASES OF GALLBLADDER 04/22/2019 PERDOMO DO, NICKIE D Ot R18. 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 04/22/2019 HUY STONE MD, Ot R18. 8 OTHER ASCITES 04/27/2019 TICO GALAN MD, Ot K76.89 OTHER SPECIFIED DISEASES OF LIVER 04/27/2019 TICO GALAN MD, Ot K82.8 OTHER SPECIFIED DISEASES OF GALLBLADDER 04/27/2019 TICO GALAN MD, Ot R18.8 OTHER ASCITES Procedures Code Description Performed By Per formed On [id number] DR GRANADOS OF PERITONEAL CAVITY, PERCUTANE 04/19/2019 [id number] IN SERTION OF INFUSION DEV INTO SUP VENA 04/20/2019 [id number] IN SERT OF TUNNEL VAD INTO CHEST SUBCU/FA 04/20/2019 Results Test Result Range Complete blood count (CBC) with automate d white blood cell (WBC) differential - 09/28/18 12:02 Blood leukocytes automated count (number/volume) 4.4 10*3/uL 4.3-11.0 Blood erythrocytes automated count (number/volume) 2.90 10*6/uL 4.35-5.85 Venous blood hemoglobin measurement (mass/volume) 9.7 g/dL 11.5-16.0 Blood hematocrit (volume fraction) 30 % 35-52 Automated erythrocyte mean corpuscular volume 103 [foz_us] 80-99 Automated erythrocyte mean corpuscular h emoglobin (mass per erythrocyte) 33 pg 25-34 Automated erythrocyte mean corpuscular h emoglobin concentration measurement (mass/volume) 32 g/dL 32-36 Automated erythrocyte distribution width ratio 14. 6 % 10.0- 14.5 Automated blood platelet count (count/volume) 266 10*3/uL 130-400 Automated blood platelet mean volume measurement 9.2 [foz_us] 7.4-10.4 Automated blood neutrophils/100 leukocytes 59 % 42-75 Automated blood lymphocytes/100 leukocytes 19 % 12-44 Blood monocytes/100 leukocytes 8 % 0-12 Automated blood eosinophils/100 leukocytes 13 % 0-10 Automated blood basophils/100 leukocytes 1 % 0-10 Blood neutrophils automated count (number/volume) 2.6 10*3 1.8-7.8 Blood lymphocytes automated count (number/volume) 0.9 10*3 1.0-4.0 Blood monocytes automated count (number/volume) 0. 4 10*3 0.0-1.0 Automated eosinophil count 0.6 10*3/uL 0 .0-0.3 Automated blood basophil count (count/volume) 0.1 10*3/uL 0.0-0.1 Comprehensive metabolic panel - 09/28/18 12:02 Serum or plasma sodium measurement (moles/volume) 138 mmol/L 135-145 Serum or plasma potassium measurement (moles/volume) 3.7 mmol/L 3.6-5.0 Serum or plasma chloride measurement (moles/volume) 106 mmol/L 98-107 Carbon dioxide 23 mmol/L 21-32 Serum or plasma anion gap determination (moles/volume) 9 mmol/L 5-14 Serum or plasma urea nitrogen measurement (mass/volume ) 13 mg/dL 7-18 Serum or plasma creatinine measurement (mass/volume) 0.95 mg/dL 0.60-1.30 Serum or plasma urea nitrogen/creatinine mass ratio 14 NRG Serum or plasma creatinine measurement w ith calculation of estimated glomerular filtration rate 60 NRG Serum or plasma glucose measurement (mass/volume) 123 mg/dL 70-105 Serum or plasma calcium measurement (mass/volume) 9.6 mg/dL 8.5-10.1 Serum or plasma total bilirubin measurement (mass/volu me) 0.3 mg/dL 0.1-1.0 Serum or plasma alkaline phosphatase miguel angel surement (enzymatic activity/volume) 51 U/L 40-136 Serum or plasma aspartate aminotransfera se measurement (enzymatic activity/volume) 21 U/L 5-34 Serum or plasma alanine aminotransferase measurement (enzymatic activity/volume) 20 U/L 0-55 Serum or plasma protein measurement (mass/volume) 7.2 g/dL 6.4-8.2 Serum or plasma albumin measurement (mass/volume) 4.1 g/dL 3.2-4.5 CALCIUM CORRECTED 9.5 mg/dL 8.5-10.1 CA 15-3 - 09/28/18 12:02 CA 15-3 C 490.1 u[iU]/mL 0.0-31.3 Complete blood count (CBC) with automate d white blood cell (WBC) differential - 12/02/18 15:33 Blood leukocytes automated count (number/volume) 7.9 10*3/uL 4.3-11.0 Blood erythrocytes automated count (number/volume) 3.50 10*6/uL 4.35-5.85 Venous blood hemoglobin measurement (mass/volume) 10.7 g/dL 11.5-16.0 Blood hematocrit (volume fraction) 33 % 35-52 Automated erythrocyte mean corpuscular volume 94 [ foz_us] 80-99 Automated erythrocyte mean corpuscular h emoglobin (mass per erythrocyte) 31 pg 25-34 Automated erythrocyte mean corpuscular h emoglobin concentration measurement (mass/volume) 33 g/dL 32-36 Automated erythrocyte distribution width ratio 14. 6 % 10.0- 14.5 Automated blood platelet count (count/volume) 241 10*3/uL 130-400 Automated blood platelet mean volume measurement 9.7 [foz_us] 7.4-10.4 Automated blood neutrophils/100 leukocytes 71 % 42-75 Automated blood lymphocytes/100 leukocytes 19 % 12-44 Blood monocytes/100 leukocytes 9 % 0-12 Automated blood eosinophils/100 leukocytes 1 % 0-10 Automated blood basophils/100 leukocytes 0 % 0-10 Blood neutrophils automated count (number/volume) 5.6 10*3 1.8-7.8 Blood lymphocytes automated count (number/volume) 1.5 10*3 1.0-4.0 Blood monocytes automated count (number/volume) 0. 7 10*3 0.0-1.0 Automated eosinophil count 0.1 10*3/uL 0 .0-0.3 Automated blood basophil count (count/volume) 0.0 10*3/uL 0.0-0.1 Comprehensive metabolic panel - 12/02/18 15:33 Serum or plasma sodium measurement (moles/volume) 136 mmol/L 135-145 Serum or plasma potassium measurement (moles/volume) 3.5 mmol/L 3.6-5.0 Serum or plasma chloride measurement (moles/volume) 104 mmol/L 98-107 Carbon dioxide 24 mmol/L 21-32 Serum or plasma anion gap determination (moles/volume) 8 mmol/L 5-14 Serum or plasma urea nitrogen measurement (mass/volume ) 24 mg/dL 7-18 Serum or plasma creatinine measurement (mass/volume) 1.36 mg/dL 0.60-1.30 Serum or plasma urea nitrogen/creatinine mass ratio 18 NRG Serum or plasma creatinine measurement w ith calculation of estimated glomerular filtration rate 40 NRG Serum or plasma glucose measurement (mass/volume) 118 mg/dL 70-105 Serum or plasma calcium measurement (mass/volume) 9.8 mg/dL 8.5-10.1 Serum or plasma total bilirubin measurement (mass/volu me) 0.3 mg/dL 0.1-1.0 Serum or plasma alkaline phosphatase miguel angel surement (enzymatic activity/volume) 65 U/L 40-136 Serum or plasma aspartate aminotransfera se measurement (enzymatic activity/volume) 38 U/L 5-34 Serum or plasma alanine aminotransferase measurement (enzymatic activity/volume) 32 U/L 0-55 Serum or plasma protein measurement (mass/volume) 7.6 g/dL 6.4-8.2 Serum or plasma albumin measurement (mass/volume) 4.3 g/dL 3.2-4.5 CALCIUM CORRECTED 9.6 mg/dL 8.5-10.1 Complete blood count (CBC) with automate d white blood cell (WBC) differential - 04/13/19 19:25 Blood leukocytes automated count (number/volume) 8.5 10*3/uL 4.3-11.0 Blood erythrocytes automated count (number/volume) 3.73 10*6/uL 4.35-5.85 Venous blood hemoglobin measurement (mass/volume) 9.2 g/dL 11.5-16.0 Blood hematocrit (volume fraction) 29 % 35-52 Automated erythrocyte mean corpuscular volume 78 [ foz_us] 80-99 Automated erythrocyte mean corpuscular h emoglobin (mass per erythrocyte) 25 pg 25-34 Automated erythrocyte mean corpuscular h emoglobin concentration measurement (mass/volume) 32 g/dL 32-36 Automated erythrocyte distribution width ratio 17. 4 % 10.0- 14.5 Automated blood platelet count (count/volume) 496 10*3/uL 130-400 Automated blood platelet mean volume measurement 8.7 [foz_us] 7.4-10.4 Automated blood neutrophils/100 leukocytes 80 % 42-75 Automated blood lymphocytes/100 leukocytes 11 % 12-44 Blood monocytes/100 leukocytes 7 % 0-12 Automated blood eosinophils/100 leukocytes 2 % 0-10 Automated blood basophils/100 leukocytes 0 % 0-10 Blood neutrophils automated count (number/volume) 6.8 10*3 1.8-7.8 Blood lymphocytes automated count (number/volume) 0.9 10*3 1.0-4.0 Blood monocytes automated count (number/volume) 0. 6 10*3 0.0-1.0 Automated eosinophil count 0.2 10*3/uL 0 .0-0.3 Automated blood basophil count (count/volume) 0.0 10*3/uL 0.0-0.1 Comprehensive metabolic panel - 04/13/19 19:25 Serum or plasma sodium measurement (moles/volume) 132 mmol/L 135-145 Serum or plasma potassium measurement (moles/volume) 3.6 mmol/L 3.6-5.0 Serum or plasma chloride measurement (moles/volume) 103 mmol/L 98-107 Carbon dioxide 19 mmol/L 21-32 Serum or plasma anion gap determination (moles/volume) 10 mmol/L 5-14 Serum or plasma urea nitrogen measurement (mass/volume ) 10 mg/dL 7-18 Serum or plasma creatinine measurement (mass/volume) 0.78 mg/dL 0.60-1.30 Serum or plasma urea nitrogen/creatinine mass ratio 13 NRG Serum or plasma creatinine measurement w ith calculation of estimated glomerular filtration rate > NRG Serum or plasma glucose measurement (mass/volume) 90 mg/dL 70-105 Serum or plasma calcium measurement (mass/volume) 9.0 mg/dL 8.5-10.1 Serum or plasma total bilirubin measurement (mass/volu me) 0.3 mg/dL 0.1-1.0 Serum or plasma alkaline phosphatase miguel angel surement (enzymatic activity/volume) 61 U/L 40-136 Serum or plasma aspartate aminotransfera se measurement (enzymatic activity/volume) 20 U/L 5-34 Serum or plasma alanine aminotransferase measurement (enzymatic activity/volume) 13 U/L 0-55 Serum or plasma protein measurement (mass/volume) 6.7 g/dL 6.4-8.2 Serum or plasma albumin measurement (mass/volume) 3.5 g/dL 3.2-4.5 CALCIUM CORRECTED 9.4 mg/dL 8.5-10.1 Lipase - 04/13/19 19:25 Lipase 15 U/L 8-78 Serum or plasma C reactive protein measu rement (mass/volume) - 04/13/19 19:25 Serum or plasma C reactive protein measurement (mass/v olume) 13.69 mg/dL 0.00-0.50 Complete urinalysis with reflex to cultu re - 04/13/19 20:57 Urine color determination YELLOW NRG Urine clarity determination CLEAR NR G Urine pH measurement by test strip 6.0 5-9 Specific gravity of urine by test strip 1.025 1.016-1.022 Urine protein assay by test strip, semi-quantitative TRACE NEGATIVE Urine glucose detection by automated test strip NE GATIVE NEGATIVE Erythrocytes detection in urine sediment by light micr oscopy NEGATIVE NEGATIVE Urine ketones detection by automated test strip 3+ NEGATIVE Urine nitrite detection by test strip NEGATIVE NEGATIVE Urine total bilirubin detection by test strip 1+ NEGATIVE Urine urobilinogen measurement by automated test strip (mass/volume) 0.2 mg/dL < = 1.0 Urine leukocyte esterase detection by dipstick TRA CE NEGATIVE Automated urine sediment erythrocyte cou nt by microscopy (number/high power field) NONE NRG Automated urine sediment leukocyte count by microscopy (number/high power field) [HPF] NRG Bacteria detection in urine sediment by light microsco py FEW NRG Squamous epithelial cells detection in u rine sediment by light microscopy 2-5 NRG Crystals detection in urine sediment by light microsco py NONE NRG Casts detection in urine sediment by light microscopy NONE NRG Mucus detection in urine sediment by light microscopy NEGATIVE NRG Complete urinalysis with reflex to culture YES NRG Bacterial urine culture - 04/13/19 20:57 Bacterial urine culture NG NRG Bacteria identification in isolate by an aerobe culture - 04/14/19 13:30 Bacteria identification in isolate by anaerobe culture NOANA NRG Gram stain microscopy - 04/14/19 13:30 Gram stain microscopy No bacteria seen NRG Bacteria identification in wound by cult ure - 04/14/19 13:30 Bacteria identification in wound by culture NG NR Body fluid cell count - 04/14/19 14:09 Specimen source identification of body fluid PERIT ON NRG Evaluation of color of body fluid PALE YELLOW NRG Determination of appearance of body fluid MOD CLDY NR Body fluid leukocytes count (number/volume) 2550 / uL NRG Body fluid erythrocytes count (number/volume) 125 /uL NRG Manual body fluid polymorphonuclear cells/100 leukocyt es 3 % NRG Manual body fluid mononuclear cells/100 leukocytes 0 % NRG Manual body fluid lymphocytes/100 leukocytes 83 % NRG Manual body fluid other cell count (number) 14 % NRG Glucose body fluid - 04/14/19 14:09 Glucose body fluid 75 mg/dL NRG Body fluid total protein measurement - 0 04/14/19 14:09 Body fluid total protein measurement 3.4 g/dL NRG Body fluid/serum or plasma lactate dehyd rogenase (LDH) ratio - 04/14/19 14:09 Body fluid/serum or plasma lactate dehydrogenase (LDH) ratio 242 U/L NRG Amylase body fluid - 04/14/19 14:09 Amylase body fluid 33 U/L NRG Creatinine body fluid - 04/14/19 14:09 Creatinine body fluid 0.63 mg/dL NRG Complete blood count (CBC) with automate d white blood cell (WBC) differential - 04/17/19 20:32 Blood leukocytes automated count (number/volume) 12.0 10*3/uL 4.3-11.0 Blood erythrocytes automated count (number/volume) 3.97 10*6/uL 4.35-5.85 Venous blood hemoglobin measurement (mass/volume) 10.0 g/dL 11.5-16.0 Blood hematocrit (volume fraction) 31 % 35-52 Automated erythrocyte mean corpuscular volume 77 [ foz_us] 80-99 Automated erythrocyte mean corpuscular h emoglobin (mass per erythrocyte) 25 pg 25-34 Automated erythrocyte mean corpuscular h emoglobin concentration measurement (mass/volume) 33 g/dL 32-36 Automated erythrocyte distribution width ratio 17. 4 % 10.0- 14.5 Automated blood platelet count (count/volume) 620 10*3/uL 130-400 Automated blood platelet mean volume measurement 9.2 [foz_us] 7.4-10.4 Automated blood neutrophils/100 leukocytes 81 % 42-75 Automated blood lymphocytes/100 leukocytes 13 % 12-44 Blood monocytes/100 leukocytes 6 % 0-12 Automated blood eosinophils/100 leukocytes 1 % 0-10 Automated blood basophils/100 leukocytes 0 % 0-10 Blood neutrophils automated count (number/volume) 9.7 10*3 1.8-7.8 Blood lymphocytes automated count (number/volume) 1.5 10*3 1.0-4.0 Blood monocytes automated count (number/volume) 0. 7 10*3 0.0-1.0 Automated eosinophil count 0.1 10*3/uL 0 .0-0.3 Automated blood basophil count (count/volume) 0.0 10*3/uL 0.0-0.1 PT panel in platelet poor plasma by coag ulation assay - 04/17/19 20:32 Prothrombin time (PT) in platelet poor plasma by coagu lation assay 13.5 s 12.2-14.7 INR in platelet poor plasma or blood by coagulation as say 1.0 0.8-1.4 Comprehensive metabolic panel - 04/17/19 20:32 Serum or plasma sodium measurement (moles/volume) 134 mmol/L 135-145 Serum or plasma potassium measurement (moles/volume) 3.4 mmol/L 3.6-5.0 Serum or plasma chloride measurement (moles/volume) 100 mmol/L 98-107 Carbon dioxide 20 mmol/L 21-32 Serum or plasma anion gap determination (moles/volume) 14 mmol/L 5-14 Serum or plasma urea nitrogen measurement (mass/volume ) 7 mg/dL 7-18 Serum or plasma creatinine measurement (mass/volume) 0.85 mg/dL 0.60-1.30 Serum or plasma urea nitrogen/creatinine mass ratio 8 NRG Serum or plasma creatinine measurement w ith calculation of estimated glomerular filtration rate > NRG Serum or plasma glucose measurement (mass/volume) 95 mg/dL 70-105 Serum or plasma calcium measurement (mass/volume) 8.7 mg/dL 8.5-10.1 Serum or plasma total bilirubin measurement (mass/volu me) 0.3 mg/dL 0.1-1.0 Serum or plasma alkaline phosphatase miguel angel surement (enzymatic activity/volume) 66 U/L 40-136 Serum or plasma aspartate aminotransfera se measurement (enzymatic activity/volume) 22 U/L 5-34 Serum or plasma alanine aminotransferase measurement (enzymatic activity/volume) 15 U/L 0-55 Serum or plasma protein measurement (mass/volume) 6.7 g/dL 6.4-8.2 Serum or plasma albumin measurement (mass/volume) 3.4 g/dL 3.2-4.5 CALCIUM CORRECTED 9.2 mg/dL 8.5-10.1 Lipase - 04/17/19 20:32 Lipase 12 U/L 8-78 Complete urinalysis with reflex to cultu re - 04/17/19 21:30 Urine color determination YELLOW NRG Urine clarity determination CLEAR NR G Urine pH measurement by test strip 6.5 5-9 Specific gravity of urine by test strip 1.020 1.016-1.022 Urine protein assay by test strip, semi-quantitative NEGATIVE NEGATIVE Urine glucose detection by automated test strip NE GATIVE NEGATIVE Erythrocytes detection in urine sediment by light micr oscopy NEGATIVE NEGATIVE Urine ketones detection by automated test strip 2+ NEGATIVE Urine nitrite detection by test strip NEGATIVE NEGATIVE Urine total bilirubin detection by test strip NEGA TIVE NEGATIVE Urine urobilinogen measurement by automated test strip (mass/volume) 0.2 mg/dL < = 1.0 Urine leukocyte esterase detection by dipstick NEG ATIVE NEGATIVE Automated urine sediment erythrocyte cou nt by microscopy (number/high power field) NONE NRG Automated urine sediment leukocyte count by microscopy (number/high power field) RARE NRG Bacteria detection in urine sediment by light microsco py FEW NRG Squamous epithelial cells detection in u rine sediment by light microscopy 0-2 NRG Crystals detection in urine sediment by light microsco py NONE NRG Casts detection in urine sediment by light microscopy NONE NRG Mucus detection in urine sediment by light microscopy NEGATIVE NRG Complete urinalysis with reflex to culture NO NRG Complete blood count (CBC) with automate d white blood cell (WBC) differential - 04/18/19 04:40 Blood leukocytes automated count (number/volume) 9.8 10*3/uL 4.3-11.0 Blood erythrocytes automated count (number/volume) 3.55 10*6/uL 4.35-5.85 Venous blood hemoglobin measurement (mass/volume) 8.8 g/dL 11.5-16.0 Blood hematocrit (volume fraction) 28 % 35-52 Automated erythrocyte mean corpuscular volume 79 [ foz_us] 80-99 Automated erythrocyte mean corpuscular h emoglobin (mass per erythrocyte) 25 pg 25-34 Automated erythrocyte mean corpuscular h emoglobin concentration measurement (mass/volume) 31 g/dL 32-36 Automated erythrocyte distribution width ratio 17. 4 % 10.0- 14.5 Automated blood platelet count (count/volume) 476 10*3/uL 130-400 Automated blood platelet mean volume measurement 8.9 [foz_us] 7.4-10.4 Automated blood neutrophils/100 leukocytes 81 % 42-75 Automated blood lymphocytes/100 leukocytes 11 % 12-44 Blood monocytes/100 leukocytes 7 % 0-12 Automated blood eosinophils/100 leukocytes 1 % 0-10 Automated blood basophils/100 leukocytes 0 % 0-10 Blood neutrophils automated count (number/volume) 7.9 10*3 1.8-7.8 Blood lymphocytes automated count (number/volume) 1.0 10*3 1.0-4.0 Blood monocytes automated count (number/volume) 0. 7 10*3 0.0-1.0 Automated eosinophil count 0.1 10*3/uL 0 .0-0.3 Automated blood basophil count (count/volume) 0.0 10*3/uL 0.0-0.1 Comprehensive metabolic panel - 04/18/19 04:40 Serum or plasma sodium measurement (moles/volume) 134 mmol/L 135-145 Serum or plasma potassium measurement (moles/volume) 4.0 mmol/L 3.6-5.0 Serum or plasma chloride measurement (moles/volume) 105 mmol/L 98-107 Carbon dioxide 19 mmol/L 21-32 Serum or plasma anion gap determination (moles/volume) 10 mmol/L 5-14 Serum or plasma urea nitrogen measurement (mass/volume ) 7 mg/dL 7-18 Serum or plasma creatinine measurement (mass/volume) 0.80 mg/dL 0.60-1.30 Serum or plasma urea nitrogen/creatinine mass ratio 9 NRG Serum or plasma creatinine measurement w ith calculation of estimated glomerular filtration rate > NRG Serum or plasma glucose measurement (mass/volume) 97 mg/dL 70-105 Serum or plasma calcium measurement (mass/volume) 7.7 mg/dL 8.5-10.1 Serum or plasma total bilirubin measurement (mass/volu me) 0.2 mg/dL 0.1-1.0 Serum or plasma alkaline phosphatase miguel angel surement (enzymatic activity/volume) 57 U/L 40-136 Serum or plasma aspartate aminotransfera se measurement (enzymatic activity/volume) 17 U/L 5-34 Serum or plasma alanine aminotransferase measurement (enzymatic activity/volume) 11 U/L 0-55 Serum or plasma protein measurement (mass/volume) 5.7 g/dL 6.4-8.2 Serum or plasma albumin measurement (mass/volume) 2.9 g/dL 3.2-4.5 CALCIUM CORRECTED 8.6 mg/dL 8.5-10.1 Methicillin resistant Staphylococcus aur eus (MRSA) screening culture - 04/20/19 08:58 Methicillin resistant Staphylococcus aureus (MRSA) scr eening culture NEG NRG Complete blood count (CBC) with automate d white blood cell (WBC) differential - 04/21/19 13:00 Blood leukocytes automated count (number/volume) 14.3 10*3/uL 4.3-11.0 Blood erythrocytes automated count (number/volume) 3.43 10*6/uL 4.35-5.85 Venous blood hemoglobin measurement (mass/volume) 8.5 g/dL 11.5-16.0 Blood hematocrit (volume fraction) 27 % 35-52 Automated erythrocyte mean corpuscular volume 79 [ foz_us] 80-99 Automated erythrocyte mean corpuscular h emoglobin (mass per erythrocyte) 25 pg 25-34 Automated erythrocyte mean corpuscular h emoglobin concentration measurement (mass/volume) 31 g/dL 32-36 Automated erythrocyte distribution width ratio 17. 3 % 10.0- 14.5 Automated blood platelet count (count/volume) 413 10*3/uL 130-400 Automated blood platelet mean volume measurement 8.6 [foz_us] 7.4-10.4 Automated blood neutrophils/100 leukocytes 94 % 42-75 Automated blood lymphocytes/100 leukocytes 4 % 12-44 Blood monocytes/100 leukocytes 2 % 0-12 Automated blood eosinophils/100 leukocytes 0 % 0-10 Automated blood basophils/100 leukocytes 0 % 0-10 Blood neutrophils automated count (number/volume) 13.4 10*3 1.8-7.8 Blood lymphocytes automated count (number/volume) 0.6 10*3 1.0-4.0 Blood monocytes automated count (number/volume) 0. 3 10*3 0.0-1.0 Automated eosinophil count 0.0 10*3/uL 0 .0-0.3 Automated blood basophil count (count/volume) 0.0 10*3/uL 0.0-0.1 Comprehensive metabolic panel - 04/21/19 13:00 Serum or plasma sodium measurement (moles/volume) 136 mmol/L 135-145 Serum or plasma potassium measurement (moles/volume) 4.0 mmol/L 3.6-5.0 Serum or plasma chloride measurement (moles/volume) 104 mmol/L 98-107 Carbon dioxide 23 mmol/L 21-32 Serum or plasma anion gap determination (moles/volume) 9 mmol/L 5-14 Serum or plasma urea nitrogen measurement (mass/volume ) 5 mg/dL 7-18 Serum or plasma creatinine measurement (mass/volume) 0.71 mg/dL 0.60-1.30 Serum or plasma urea nitrogen/creatinine mass ratio 7 NRG Serum or plasma creatinine measurement w ith calculation of estimated glomerular filtration rate > NRG Serum or plasma glucose measurement (mass/volume) 136 mg/dL 70-105 Serum or plasma calcium measurement (mass/volume) 7.7 mg/dL 8.5-10.1 Serum or plasma total bilirubin measurement (mass/volu me) 0.2 mg/dL 0.1-1.0 Serum or plasma alkaline phosphatase miguel angel surement (enzymatic activity/volume) 55 U/L 40-136 Serum or plasma aspartate aminotransfera se measurement (enzymatic activity/volume) 19 U/L 5-34 Serum or plasma alanine aminotransferase measurement (enzymatic activity/volume) 14 U/L 0-55 Serum or plasma protein measurement (mass/volume) 5.9 g/dL 6.4-8.2 Serum or plasma albumin measurement (mass/volume) 2.9 g/dL 3.2-4.5 CALCIUM CORRECTED 8.6 mg/dL 8.5-10.1 Manual absolute plasma cell count - 08/03 13:00 Blood monocytes/100 leukocytes 1 % NRG Manual blood segmented neutrophils/100 leukocytes 91 % NRG Blood band neutrophils/100 leukocytes 1 % NRG Manual blood lymphocytes/100 leukocytes 7 % NRG Manual eosinophils/100 leukocytes in nose 0 % NRG Manual blood basophils/100 leukocytes 0 % NRG Blood anisocytosis detection by light microscopy S LIGHT NRG Capillary blood glucose measurement by g lucometer (mass/volume) - 04/22/19 05:10 Capillary blood glucose measurement by glucometer (mas s/volume) 128 mg/dL 70-110 Complete blood count (CBC) with automate d white blood cell (WBC) differential - 04/23/19 06:33 Blood leukocytes automated count (number/volume) 11.6 10*3/uL 4.3-11.0 Blood erythrocytes automated count (number/volume) 3.57 10*6/uL 4.35-5.85 Venous blood hemoglobin measurement (mass/volume) 8.7 g/dL 11.5-16.0 Blood hematocrit (volume fraction) 28 % 35-52 Automated erythrocyte mean corpuscular volume 80 [ foz_us] 80-99 Automated erythrocyte mean corpuscular h emoglobin (mass per erythrocyte) 24 pg 25-34 Automated erythrocyte mean corpuscular h emoglobin concentration measurement (mass/volume) 31 g/dL 32-36 Automated erythrocyte distribution width ratio 17. 7 % 10.0- 14.5 Automated blood platelet count (count/volume) 431 10*3/uL 130-400 Automated blood platelet mean volume measurement 9.1 [foz_us] 7.4-10.4 Automated blood neutrophils/100 leukocytes 90 % 42-75 Automated blood lymphocytes/100 leukocytes 7 % 12-44 Blood monocytes/100 leukocytes 3 % 0-12 Automated blood eosinophils/100 leukocytes 0 % 0-10 Automated blood basophils/100 leukocytes 0 % 0-10 Blood neutrophils automated count (number/volume) 10.5 10*3 1.8-7.8 Blood lymphocytes automated count (number/volume) 0.8 10*3 1.0-4.0 Blood monocytes automated count (number/volume) 0. 3 10*3 0.0-1.0 Automated eosinophil count 0.0 10*3/uL 0 .0-0.3 Automated blood basophil count (count/volume) 0.0 10*3/uL 0.0-0.1 Comprehensive metabolic panel - 04/23/19 06:33 Serum or plasma sodium measurement (moles/volume) 132 mmol/L 135-145 Serum or plasma potassium measurement (moles/volume) 4.4 mmol/L 3.6-5.0 Serum or plasma chloride measurement (moles/volume) 101 mmol/L 98-107 Carbon dioxide 22 mmol/L 21-32 Serum or plasma anion gap determination (moles/volume) 9 mmol/L 5-14 Serum or plasma urea nitrogen measurement (mass/volume ) 20 mg/dL 7-18 Serum or plasma creatinine measurement (mass/volume) 0.65 mg/dL 0.60-1.30 Serum or plasma urea nitrogen/creatinine mass ratio 31 NRG Serum or plasma creatinine measurement w ith calculation of estimated glomerular filtration rate > NRG Serum or plasma glucose measurement (mass/volume) 97 mg/dL 70-105 Serum or plasma calcium measurement (mass/volume) 8.1 mg/dL 8.5-10.1 Serum or plasma total bilirubin measurement (mass/volu me) 0.3 mg/dL 0.1-1.0 Serum or plasma alkaline phosphatase miguel angel surement (enzymatic activity/volume) 53 U/L 40-136 Serum or plasma aspartate aminotransfera se measurement (enzymatic activity/volume) 29 U/L 5-34 Serum or plasma alanine aminotransferase measurement (enzymatic activity/volume) 22 U/L 0-55 Serum or plasma protein measurement (mass/volume) 6.0 g/dL 6.4-8.2 Serum or plasma albumin measurement (mass/volume) 3.1 g/dL 3.2-4.5 CALCIUM CORRECTED 8.8 mg/dL 8.5-10.1 Complete blood count (CBC) with automate d white blood cell (WBC) differential - 04/25/19 04:26 Blood leukocytes automated count (number/volume) 5.3 10*3/uL 4.3-11.0 Blood erythrocytes automated count (number/volume) 3.68 10*6/uL 4.35-5.85 Venous blood hemoglobin measurement (mass/volume) 9.1 g/dL 11.5-16.0 Blood hematocrit (volume fraction) 29 % 35-52 Automated erythrocyte mean corpuscular volume 78 [ foz_us] 80-99 Automated erythrocyte mean corpuscular h emoglobin (mass per erythrocyte) 25 pg 25-34 Automated erythrocyte mean corpuscular h emoglobin concentration measurement (mass/volume) 32 g/dL 32-36 Automated erythrocyte distribution width ratio 17. 8 % 10.0- 14.5 Automated blood platelet count (count/volume) 356 10*3/uL 130-400 Automated blood platelet mean volume measurement 9.2 [foz_us] 7.4-10.4 Automated blood neutrophils/100 leukocytes 94 % 42-75 Automated blood lymphocytes/100 leukocytes 4 % 12-44 Blood monocytes/100 leukocytes 2 % 0-12 Automated blood eosinophils/100 leukocytes 0 % 0-10 Automated blood basophils/100 leukocytes 0 % 0-10 Blood neutrophils automated count (number/volume) 5.0 10*3 1.8-7.8 Blood lymphocytes automated count (number/volume) 0.2 10*3 1.0-4.0 Blood monocytes automated count (number/volume) 0. 1 10*3 0.0-1.0 Automated eosinophil count 0.0 10*3/uL 0 .0-0.3 Automated blood basophil count (count/volume) 0.0 10*3/uL 0.0-0.1 Comprehensive metabolic panel - 04/25/19 04:26 Serum or plasma sodium measurement (moles/volume) 130 mmol/L 135-145 Serum or plasma potassium measurement (moles/volume) 4.3 mmol/L 3.6-5.0 Serum or plasma chloride measurement (moles/volume) 100 mmol/L 98-107 Carbon dioxide 21 mmol/L 21-32 Serum or plasma anion gap determination (moles/volume) 9 mmol/L 5-14 Serum or plasma urea nitrogen measurement (mass/volume ) 26 mg/dL 7-18 Serum or plasma creatinine measurement (mass/volume) 0.68 mg/dL 0.60-1.30 Serum or plasma urea nitrogen/creatinine mass ratio 38 NRG Serum or plasma creatinine measurement w ith calculation of estimated glomerular filtration rate > NRG Serum or plasma glucose measurement (mass/volume) 128 mg/dL 70-105 Serum or plasma calcium measurement (mass/volume) 7.9 mg/dL 8.5-10.1 Serum or plasma total bilirubin measurement (mass/volu me) 0.3 mg/dL 0.1-1.0 Serum or plasma alkaline phosphatase miguel angel surement (enzymatic activity/volume) 51 U/L 40-136 Serum or plasma aspartate aminotransfera se measurement (enzymatic activity/volume) 24 U/L 5-34 Serum or plasma alanine aminotransferase measurement (enzymatic activity/volume) 32 U/L 0-55 Serum or plasma protein measurement (mass/volume) 5.6 g/dL 6.4-8.2 Serum or plasma albumin measurement (mass/volume) 3.0 g/dL 3.2-4.5 CALCIUM CORRECTED 8.7 mg/dL 8.5-10.1 Complete blood count (CBC) with automate d white blood cell (WBC) differential - 04/27/19 06:15 Blood leukocytes automated count (number/volume) 0.8 10*3/uL 4.3-11.0 Blood erythrocytes automated count (number/volume) 3.34 10*6/uL 4.35-5.85 Venous blood hemoglobin measurement (mass/volume) 8.3 g/dL 11.5-16.0 Blood hematocrit (volume fraction) 26 % 35-52 Automated erythrocyte mean corpuscular volume 78 [ foz_us] 80-99 Automated erythrocyte mean corpuscular h emoglobin (mass per erythrocyte) 25 pg 25-34 Automated erythrocyte mean corpuscular h emoglobin concentration measurement (mass/volume) 32 g/dL 32-36 Automated erythrocyte distribution width ratio 17. 1 % 10.0- 14.5 Automated blood platelet count (count/volume) 330 10*3/uL 130-400 Automated blood platelet mean volume measurement 9.5 [foz_us] 7.4-10.4 Automated blood neutrophils/100 leukocytes 36 % 42-75 Automated blood lymphocytes/100 leukocytes 47 % 12-44 Blood monocytes/100 leukocytes 12 % 0-12 Automated blood eosinophils/100 leukocytes 1 % 0-10 Automated blood basophils/100 leukocytes 4 % 0-10 Blood neutrophils automated count (number/volume) 0.3 10*3 1.8-7.8 Blood lymphocytes automated count (number/volume) 0.4 10*3 1.0-4.0 Blood monocytes automated count (number/volume) 0. 1 10*3 0.0-1.0 Automated eosinophil count 0.0 10*3/uL 0 .0-0.3 Automated blood basophil count (count/volume) 0.0 10*3/uL 0.0-0.1 Comprehensive metabolic panel - 04/27/19 06:15 Serum or plasma sodium measurement (moles/volume) 128 mmol/L 135-145 Serum or plasma potassium measurement (moles/volume) 3.7 mmol/L 3.6-5.0 Serum or plasma chloride measurement (moles/volume) 100 mmol/L 98-107 Carbon dioxide 19 mmol/L 21-32 Serum or plasma anion gap determination (moles/volume) 9 mmol/L 5-14 Serum or plasma urea nitrogen measurement (mass/volume ) 24 mg/dL 7-18 Serum or plasma creatinine measurement (mass/volume) 0.65 mg/dL 0.60-1.30 Serum or plasma urea nitrogen/creatinine mass ratio 37 NRG Serum or plasma creatinine measurement w ith calculation of estimated glomerular filtration rate > NRG Serum or plasma glucose measurement (mass/volume) 106 mg/dL 70-105 Serum or plasma calcium measurement (mass/volume) 7.4 mg/dL 8.5-10.1 Serum or plasma total bilirubin measurement (mass/volu me) 0.3 mg/dL 0.1-1.0 Serum or plasma alkaline phosphatase miguel angel surement (enzymatic activity/volume) 44 U/L 40-136 Serum or plasma aspartate aminotransfera se measurement (enzymatic activity/volume) 17 U/L 5-34 Serum or plasma alanine aminotransferase measurement (enzymatic activity/volume) 23 U/L 0-55 Serum or plasma protein measurement (mass/volume) 5.3 g/dL 6.4-8.2 Serum or plasma albumin measurement (mass/volume) 2.7 g/dL 3.2-4.5 CALCIUM CORRECTED 8.4 mg/dL 8.5-10.1 Whole blood basic metabolic panel - 04/17 05/06 06:00 Serum or plasma sodium measurement (moles/volume) 128 mmol/L 135-145 Serum or plasma potassium measurement (moles/volume) 4.0 mmol/L 3.6-5.0 Serum or plasma chloride measurement (moles/volume) 102 mmol/L 98-107 Carbon dioxide 19 mmol/L 21-32 Serum or plasma anion gap determination (moles/volume) 7 mmol/L 5-14 Serum or plasma urea nitrogen measurement (mass/volume ) 19 mg/dL 7-18 Serum or plasma creatinine measurement (mass/volume) 0.65 mg/dL 0.60-1.30 Serum or plasma urea nitrogen/creatinine mass ratio 29 NRG Serum or plasma creatinine measurement w ith calculation of estimated glomerular filtration rate > NRG Serum or plasma glucose measurement (mass/volume) 91 mg/dL 70-105 Serum or plasma calcium measurement (mass/volume) 7.6 mg/dL 8.5-10.1 Encounters ACCT No. Visit Date/Time Discharge Status Pt. Type Provider Facility Loc./Unit Complaint [id number] 04/15/2019 13:01:31 Document Registration [id number] 04/15/2019 13:01:30 Document Registration [id number] 04/15/2019 13:01:29 Document Registration [id number] 04/15/2019 15:27:43 04/15/2019 23:59: 59 CLS Outpatient SASKIA EITAN Varela [id number] 04/15/2019 11:36:00 04/15/2019 23:59: 59 CLS Outpatient Home Frank [id number] 04/22/2019 09:41:00 23:59:59 CLS Outpatient HUY STONE MD [facility] ONC [id number] 04/18/2019 11:15:00 10:50:00 DIS Outpatient WILFREDO PAREDES N V [facility] 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, METAST ATIC BREAST CA [id number] 04/14/2019 12:38:00 23:59:59 CLS Outpatient NICKIE PERDOMO DO [facility] RAD ABD OSCITES [id number] 04/14/2019 07:01:00 23:59:59 CLS Outpatient TICO GALAN MD [facility] RAD RUQ PAIN [id number] 04/13/2019 19:02:00 22:48:00 DIS Emergency TICO GALAN MD [facility] ER ABD PAIN [id number] 04/02/2019 12:34:00 23:59:59 CLS Outpatient HUY STONE MD [facility] RAD CANCER OF RIGHT BREAST, SECONDARY CANCER OF BONE [id number] 2019 10:26:00 23:59:59 CLS Outpatient HUY STONE MD [facility] RAD CANCER OF RT BREAST [id number] 03/23/2019 14:52:00 01/07/2 020 23:59:59 CLS Outpatient HUY STONE MD [facility] RAD CANCER OF RT BREAST,DIANA ALMAGUERNESS [id number] 03/01/2019 14:00:00 00:01:00 DIS Outpatient HUY STONE MD [facility] ONC [id number] 12/02/2018 15:28:00 00:01:00 DIS Outpatient HUY STONE MD [facility] ONC [id number] 09/02/2018 13:53:00 08:35:00 DIS Outpatient CAITLYN FRAUSTO, ERIC [facility] ONC [id number] 09/01/2018 08:17:00 00:01:00 DIS Outpatient HUY STONE MD [facility] ONC [id number] 05/13/2018 13:39:00 019 00:01:00 DIS Outpatient HUY STONE MD [facility] ONC [id number] 03/02/2018 10:55:00 018 10:56:00 DIS Outpatient HUY STONE MD [facility] ONC [id number] 04/21/2019 10:13:00 P EN Inpatient HUY STONE MD [facility] 4TH SWB, NAUSEA, VOMITING, [facility]
[2019-04-28] MEDS: fentaNYL INJECTION 100 MCG/2 ML AMP IVP PRN (13:23)
--- NOTE | 2019-04-28 13:50 | NUR ---
"RD ASSESSMENT PMHx: CA(metastatic breast); hypothyroidism PT INTERACTION: Pt was awake and pleasant during nutrition follow-up. Pt states she has been eating poorly since last assessment. Note pt had been eating poorly (avg <25% of meals), but had improved yesterday. Pt states some episodes of nausea and diarrhea since last assessment. Pt states not tolerating nutrition supplementation of Ensure Clear. ABNORMAL NUTRITION-RELATED LAB VALUES LOW: Na 128; Ca 7.6 HIGH: BUN 19 Est. kcal needs: 4193-8837 kcal | 20-25 kcal/kg Est. Pro needs: 75-89 g Pro | 1.0-1.2 g Pro/kg PES STATEMENT: Inadequate oral intake (NI-2.1) related to loss of appetite | nausea | vomiting as evidenced by pt interview | chart review of intake INTERVENTION: Continue with current diet order of Regular diet. Switch current supplementation order of Ensure Clear with meals TID to Ensure Enlive with meals TID. Ensure Enlive provides 350 kcal and 13 g Pro per serving. Encouraged pt to eat when able. Will continue to follow and reassess as pt needs and status change. MONITOR/EVALUATE: PO Intake; Plan of Care; Hydration Status; Weight Status; Lab Values Abdoulaye Chacon, MS, RD, LD"
[2019-04-28] MEDS ORDERED: NS IV 500 ML 500 ML IV ONE (14:15)
--- NOTE | 2019-04-28 15:57 | Oncology Progress Note ---
Subjective Date Seen by a Provider: Apr 28, 2019 Time Seen by a Provider: 15:49 Subjective/Events-last exam Pt spike fever today. Tmax 38.9. Tcurrent 37.8 Feel more nausea today Diarrhea better Abdominal pain, more on the back side, left She was somewhat confused this morning per her . Data Review Labs Laboratory Tests 04/28/19 06:00 Laboratory Tests 04/27/19 06:15: White Blood Count 0.8*L, Red Blood Count 3.34L, Hemoglobin 8.3L, Hematocrit 26L, Mean Corpuscular Volume 78L, Red Cell Distribution Width 17.1H, Neutrophils (%) (Auto) 36L, Lymphocytes (%) (Auto) 47H, Neutrophils # (Auto) 0.3L, Lymphocytes # (Auto) 0.4L, Sodium Level 128L, Carbon Dioxide Level 19L, Blood Urea Nitrogen 24H, Glucose Level 106H, Calcium Level 7.4L, Corrected Calcium 8.4L, Total Protein 5.3L, Albumin 2.7L 04/28/19 06:00: Sodium Level 128L, Carbon Dioxide Level 19L, Blood Urea Nitrogen 19H, Calcium Level 7.6L Physical Exam Vital Signs Vital Signs - First Documented 04/22/19 04/22/19 01:00 05:54 Temp 36.9 Pulse 90 Resp 20 B/P (MAP) 126/79 (95) Pulse Ox 95 O2 Delivery Room Air Capillary Refill : Less Than 3 SecondsLess Than 3 Seconds Height, Weight, BMI Height: '" Weight: lbs. oz. kg; 27.33 BMI Method: General Appearance: Chronically ill, Other (lethargic) Respiratory: Lungs Clear, No Accessory Muscle Use, No Respiratory Distress Cardiovascular: Regular Rate, Rhythm, Tachycardia Gastrointestinal: Non Tender, Soft, Distended, Other (She felt the abdominal p ain was more inside toward to the her left back) Extremity: No Calf Tenderness, No Pedal Edema Neurologic/Psychiatric: Alert, Oriented x3 Impression & Plan Impression & Plan 1. Metastatic breast cancer with bone mets and peritoneal carcinomatosis. Day 6 post chemo Taxotere. 2. n/v/d. 3. hyponatremia 4. neutropenic fever today 5. Left hydronephrosis notice from pervious CT scan but pt did not have a chance to get urology evaluation before the chemo. Plan: 1. IV antibiotics Cefepime and Levaquin 2. UA before the antibiotics 3. Slow down IVF 4. Continue scheduled dexamethasone 4mg bid, ondansetron and promethazine prn, pantoprazole and sucralfate as well as famotidine and prn lorazepam. 5. Continue peripheral parenteral nutrition with Clinimix and add sodium. 6. Anticipate to stay for 3-4 more days 7. Neutropenic precaution. Clinical Quality Measures DVT/VTE Risk/Contraindication: Risk Factor Score Per Nursin HUY STONE MD Apr 28, 2019 15:57
[2019-04-28 16:13] LABS: BASOPHILS % (AUTO) 1 % (0-10); EOSINOPHILS % (AUTO) 1 % (0-10); HEMATOCRIT 25 % (35-52); LYMPHOCYTES # (AUTO) 0.5 X 10^3 (1.0-4.0); LYMPHOCYTES % (AUTO) 34 % (12-44); MEAN CORPUSCULAR HEMOGLOBIN 25 PG (25-34); MEAN CORPUSCULAR HGB CONC 32 G/DL (32-36); MEAN CORPUSCULAR VOLUME 77 FL (80-99); MEAN PLATELET VOLUME 9.3 FL (7.4-10.4); MONOCYTES # (AUTO) 0.4 X 10^3 (0.0-1.0); MONOCYTES % (AUTO) 33 % (0-12); NEUTROPHILS # (AUTO) 0.4 X 10^3 (1.8-7.8); NEUTROPHILS % (AUTO) 31 % (42-75); PLATELET COUNT 332 10^3/uL (130-400); RED CELL DISTRIBUTION WIDTH 17.7 % (10.0-14.5)
[2019-04-28 16:15] LABS: WHITE BLOOD COUNT 1.3 10^3/uL (4.3-11.0)
--- NOTE | 2019-04-28 16:16 | NUR ---
CALLED WITH CRITICAL WBC COUNT UP AT 1.3.
[2019-04-28 16:37] LABS: ALANINE AMINOTRANSFERASE 21 U/L (0-55); ALBUMIN 2.8 GM/DL (3.2-4.5); ALKALINE PHOSPHATASE 86 U/L (40-136); BILIRUBIN,TOTAL 0.4 MG/DL (0.1-1.0); BUN/CREATININE RATIO 30; CALCIUM 7.8 MG/DL (8.5-10.1); CARBON DIOXIDE 19 MMOL/L (21-32); CHLORIDE 100 MMOL/L (98-107); CREATININE SERUM 0.77 MG/DL (0.60-1.30); GFR ESTIMATED > 60; GLUCOSE 101 MG/DL (70-105); POTASSIUM 4.1 MMOL/L (3.6-5.0); SODIUM 126 MMOL/L (135-145); TOTAL PROTEIN 5.6 GM/DL (6.4-8.2)
[2019-04-28] MEDS ORDERED: LEVOFLOXACIN 750 MG/150 ML IV 150 ML IV SCH (17:00)
[2019-04-28 17:06] LABS: BAND NEUTROPHILS 7 %; EOSINOPHILS % (MANUAL) 1 %; LYMPHOCYTES % (MANUAL) 37 %; MONOCYTES % (MANUAL) 30 %; NEUTROPHILS % (MANUAL) 25 %; SMEAR SCAN COMMENT YES
[2019-04-28 17:07] LABS: NUCLEATED RED BLOOD CELLS 4; POIKILOCYTOSIS SLIGHT; POLYCHROMASIA MODERATE
[2019-04-28 17:08] LABS: ANISOCYTOSIS MODERATE; MICROCYTOSIS SLIGHT; ROULEAUX SLIGHT
[2019-04-28] MEDS: GABAPENTIN 300 MG (NEURONTIN) CAP PO SCH (18:04)
[2019-04-28 20:10] VITALS: BP 86/51
[2019-04-28] MEDS ORDERED: ALBUMIN 25% 25 GM/100 ML 100 ML IV ONE ×2 (20:24→20:45)
[2019-04-28 20:56] VITALS: BP 97/52
[2019-04-28] MEDS ORDERED: IOHEXOL 350 MG/ML 150 ML (OMNIPAQUE 350) VIAL IV ONE (21:00)
[2019-04-28] MEDS ORDERED: HOLD METFORMIN - RECEIVED CONTRAST 20 ML VIAL IV SCH (21:00)
[2019-04-28] MEDS ORDERED: CEFEPIME INJECTION 2,000 MG in WATER (STERILE) FOR INJECTION 20 ML IV SCH (21:00)
[2019-04-28 21:57] VITALS: BP 101/66
--- NOTE | 2019-04-28 22:00 | NUR ---
PT TRANSFERRED TO ICU VIA BED. REPORT GIVEN TO TINO VERAS.
--- NOTE | 2019-04-28 22:00 | NUR ---
TIME LINE NOTE 2009 PTC INFORMED ABOUT PT VS. BP 86/51, TEMP 38.2, HR 130. PT SAYING SHE FEELS VERY TIRED. DR STONE NOTIFIED ABOUT PT CONDITION AND ORDER TO TRANSFER PT TO ICU. ICE PACKS PLACED AROUND THE PT 2021 DR STONE CALLED BACK TO GIVE NEW ORDERS. SEE ORDERS HX. BLOOD CULTURES DRAWN. VS FOLLOW BP 89/52, HR 125, TEMP 37.8, O2 93% ON RA. [address] ACCOMPANIED BY STAFF AND THIS RN
--- NOTE | 2019-04-28 22:09 | NUR ---
report received from catracho at this time. this rn will assume care.
[2019-04-29] MEDS ORDERED: POTASSIUM CL 10MEQ/50ML IVPB 50 ML IV SCH (06:00)
[2019-04-29] MEDS ORDERED: MAGNESIUM 1 GM/100 ML IVPB 100 ML IV SCH (06:00)
[2019-04-29] MEDS ORDERED: KCL 20 MEQ TAB (K-DUR) PO SCH (06:00)
--- NOTE | 2019-04-29 08:58 | Diagnostic Imaging Report ---
EXAMINATION: CTA of the chest and abdomen with and without contrast. INDICATION: Breast cancer, nausea and vomiting Contiguous axial sections were taken through the chest and abdomen prior to the administration of intravenous contrast. Subsequent additional images were obtained after intravenous contrast was administered. Sagittal coronal reconstructive images and MIP images of the aorta and its branches were performed as well. The previous CT abdomen/pelvis exam of 04/02/2019 noted ascites and raise the question of peritoneal carcinomatosis. There is also obstruction of the left collecting system. On this study the amount of ascites has increased somewhat. The depth of fluid about the right lobe of the liver now measures 2.3 cm as opposed to 0.7 cm on the prior exam. There still appears to be obstruction of the left collecting system although there is still no sign of obstructive calculus. In the interval since the previous exam numerous dilated fluid-filled segments of small bowel have developed. This appearance does suggest a small bowel obstruction. The transition point is not visualized as the pelvis was not included on this study. The solid organs of the abdomen and pelvis are essentially no different than on the prior exam. The stomach remains distended by fluid. There is also fluid extending into the esophagus. The images through the thorax show that the pulmonary arteries are well-opacified. There is no defect within the pulmonary arteries to indicate a pulmonary embolus. The aorta is not abnormally dilated and there is no sign of a dissection. Heart size is within normal limits. The lungs are generally clear although mild atelectasis/infiltrate has developed in each lung base. There is no mediastinal or hilar adenopathy. The thyroid gland where visualized is unremarkable. There is no obvious breast mass. The bone windows again show extensive metastatic skeletal disease. IMPRESSION: 1. The appearance of the abdomen has worsened since the prior exam as the ascites has increased. There also now appears to be a small bowel obstruction. Either a complete CT abdomen/pelvis exam or a contrast small bowel exam would be recommended for further study. 2. There is no evidence for pulmonary metastases or for a dissection. There is mild atelectasis/infiltrate in both lung bases. 3. There is persistent obstruction of the left collecting system. 4. The stomach is distended by fluid and there is fluid extending through the esophagus. 5. There is extensive metastatic skeletal disease. These results were conveyed to the ICU by our [facility] service at 2304. CRITICAL FINDING Dictated by: Dictated on workstation # [id number]
--- NOTE | 2019-04-30 10:14 | Discharge Summary ---
Diagnosis/Chief Complaint Date of Admission Apr 21, 2019 at 10:57 Date of Discharge Apr 29, 2019 at 09:46 Discharge Date: Apr 28, 2019 Discharge Time: 20:00 Admission Diagnosis Admission Diagnosis 1. Metastatic breast cancer with bone mets and peritoneal carcinomatosis. Day 6 post chemo Taxotere. 2. n/v/d. 3. hyponatremia 4. neutropenic fever and hypotensive 5. Left hydronephrosis notice from pervious CT scan but pt did not have a chance to get urology evaluation before the chemo. 6. UTI 7. small bowel obstruction Discharge Diagnosis 1. Metastatic breast cancer with bone mets and peritoneal carcinomatosis. Day 6 post chemo Taxotere. 2. n/v/d. 3. hyponatremia 4. neutropenic fever today 5. Left hydronephrosis notice from pervious CT scan but pt did not have a chance to get urology evaluation before the chemo. Plan: 1. IV antibiotics Cefepime and Levaquin 2. UA before the antibiotics 3. Slow down IVF 4. Continue scheduled dexamethasone 4mg bid, ondansetron and promethazine prn, pantoprazole and sucralfate as well as famotidine and prn lorazepam. 5. Continue peripheral parenteral nutrition with Clinimix and add sodium. 6. Anticipate to stay for 3-4 more days 7. Neutropenic precaution. Reason Hospital Visit Uncontrolled nausea vomiting and peritoneal carcinomatosis of the breast cancer. Discharge Summary Hospital Course Hospital Course Pt was admitted to swing bed for IVF and nutrition due to uncontrolled nausea vomiting from metastatic breast cancer with peritoneal carcinomatosis. She received chemotherapy on 04/22/2019 and was stable for 3-4 days even though no improvment of the nausea vomiting. She then became neutropenic and then spike fever, lethargic, hypotensive 80/[address] scan showed small bowel obstruction and UA showed UTI. She had to be transferred to ICU for aggressive management. Pt was full code. Labs Laboratory Tests 04/28/19 06:00: Sodium Level 128L, Carbon Dioxide Level 19L, Blood Urea Nitrogen 19H, Calcium Level 7.6L 04/28/19 16:09: Sodium Level 126L, Carbon Dioxide Level 19L, Blood Urea Nitrogen 23H, Calcium Level 7.8L, White Blood Count 1.3*L, Red Blood Count 3.23L, Hemoglobin 8.0L, Hematocrit 25L, Mean Corpuscular Volume 77L, Red Cell Distribution Width 17.7H, Neutrophils (%) (Auto) 31L, Monocytes (%) (Auto) 33H, Neutrophils # (Auto) 0.4L, Lymphocytes # (Auto) 0.5L, Total Protein 5.6L, Albumin 2.8L 04/28/19 20:58: Procedures None. Discharge Physical Examination Allergies: Coded Allergies: morphine (Verified Allergy, Intermediate, Itching, 04/18/19) aspirin (Verified Allergy, Unknown, 01/13/18) prochlorperazine (Verified Allergy, Unknown, 01/13/18) Vitals & I&Os Vital Signs Date Time Temp Pulse Resp B/P (MAP) Pulse Ox O2 Delivery O2 Flow Rate FiO2 04/28/19 22:00 96 Room Air 04/28/19 20:56 37.9 130 28 97/52 (67) Discharge Home Medications Reviewed and agree with Discharge Medication list on patient's Discharge Instruction sheet Instructions to Patient/Family Please see electronic discharge instructions given to patient. Clinical Quality Measures DVT/VTE Risk/Contraindication: Risk Factor Score Per Nursin HUY STONE MD Apr 30, 2019 10:14
== END 2019-04-29 09:46 | disposition short-term general hospital (02) | DRG 375 ==
LOC: 4TH 10:57
PROVIDERS: ADMIT Internal Medicine Hematology & Oncology; ATTEND Internal Medicine Hematology & Oncology
DX: C78.6 Secondary malignant neoplasm of retroperitoneum and peritoneum (principal); N13.1 Hydronephrosis with ureteral stricture, not elsewhere classified; C79.51 Secondary malignant neoplasm of bone; E87.1 Hypo-osmolality and hyponatremia; K56.609 Unspecified intestinal obstruction, unspecified as to partial versus complete obstruction; N39.0 Urinary tract infection, site not specified; R11.2 Nausea with vomiting, unspecified; D72.829 Elevated white blood cell count, unspecified; Z85.3 Personal history of malignant neoplasm of breast; Z87.11 Personal history of peptic ulcer disease; K21.9 Gastro-esophageal reflux disease without esophagitis; D70.1 Agranulocytosis secondary to cancer chemotherapy
CPT/HCPCS: 36415; 71275; 74175; 80048; 80053; 82962; 83605; 85007; 85025; 85027; 87040

== ENCOUNTER 2019-04-28 21:59 | Inpatient (IN) | payer MEDICARE, OTHER ==
[~2019-04-28] VITALS: Ht 165 cm; Wt 70.7 kg
[2019-04-28 22:00] VITALS: BP 101/66
[2019-04-28 22:15] VITALS: BP 97/61
[2019-04-28 22:30] VITALS: BP 101/63
[2019-04-28 22:45] VITALS: BP 100/65
[2019-04-28 23:15] VITALS: BP 101/67
[2019-04-29] VITALS (28 sets, daily range): BP systolic 98–124; BP diastolic 55–92
[2019-04-29] MEDS ORDERED: LOPERAMIDE 2 MG (IMODIUM) TABLET PO PRN (02:15)
[2019-04-29] MEDS ORDERED: ACETAMINOPHEN 500 MG TAB (TYLENOL) PO PRN ×2 (02:15→10:15)
[2019-04-29] MEDS ORDERED: fentaNYL INJECTION 100 MCG/2 ML AMP IVP PRN ×2 (02:15→10:15)
[2019-04-29] MEDS ORDERED: PATIENT MAY USE OWN MED,SINGLE MED PO SCH ×2 (02:30→10:15)
[2019-04-29] MEDS ORDERED: HOLD METFORMIN - RECEIVED CONTRAST 20 ML VIAL IV ONE (02:30)
[2019-04-29] MEDS ORDERED: LORazepam 0.5 MG (ATIVAN) TABLET PO PRN ×2 (02:30→10:15)
[2019-04-29] MEDS: AA 4.25% W/LYTES IN D5W IV SOL 1,000 ML IV SCH ×2 (02:34→12:25)
[2019-04-29 02:35] LABS: BILIRUBIN,URINE NEGATIVE (NEGATIVE); CLARITY,URINE CLEAR; COLOR,URINE DARK YELLOW; GLUCOSE, URINE (UA) NEGATIVE (NEGATIVE); KETONES,URINE NEGATIVE (NEGATIVE); LEUKOCYTE ESTERASE ,URINE NEGATIVE (NEGATIVE); NITRITE,URINE NEGATIVE (NEGATIVE); PH,URINE 6.5 (5-9); PROTEIN,URINE 1+ (NEGATIVE)
[2019-04-29 02:42] LABS: BACTERIA,URINE MODERATE /HPF; RBC,URINE RARE /HPF; WBC,URINE 0-2 /HPF
--- NOTE | 2019-04-29 02:55 | NUR ---
pt transferred from 4th floor swing bed at 2157. report recieved from catracho. physical assessment and vital signs documented on this account. all other interventions prior to this time were charted on pt previous swing bed account.
[2019-04-29 03:11] LABS: BASOPHILS % (AUTO) 0 % (0-10); EOSINOPHILS % (AUTO) 2 % (0-10); HEMATOCRIT 22 % (35-52); HEMOGLOBIN 7.2 G/DL (11.5-16.0); LYMPHOCYTES # (AUTO) 0.3 X 10^3 (1.0-4.0); LYMPHOCYTES % (AUTO) 20 % (12-44); MEAN CORPUSCULAR HEMOGLOBIN 25 PG (25-34); MEAN CORPUSCULAR HGB CONC 32 G/DL (32-36); MEAN CORPUSCULAR VOLUME 77 FL (80-99); MEAN PLATELET VOLUME 9.1 FL (7.4-10.4); MONOCYTES # (AUTO) 0.4 X 10^3 (0.0-1.0); MONOCYTES % (AUTO) 27 % (0-12); NEUTROPHILS # (AUTO) 0.8 X 10^3 (1.8-7.8); NEUTROPHILS % (AUTO) 52 % (42-75); PLATELET COUNT 307 10^3/uL (130-400); RED CELL DISTRIBUTION WIDTH 17.6 % (10.0-14.5); WHITE BLOOD COUNT 1.5 10^3/uL (4.3-11.0)
[2019-04-29 03:36] LABS: ALANINE AMINOTRANSFERASE 22 U/L (0-55); ALBUMIN 2.9 GM/DL (3.2-4.5); ALKALINE PHOSPHATASE 78 U/L (40-136); BILIRUBIN,TOTAL 0.5 MG/DL (0.1-1.0); BUN/CREATININE RATIO 35; CALCIUM 7.6 MG/DL (8.5-10.1); CARBON DIOXIDE 16 MMOL/L (21-32); CHLORIDE 98 MMOL/L (98-107); CREATININE SERUM 0.81 MG/DL (0.60-1.30); GFR ESTIMATED > 60; GLUCOSE 138 MG/DL (70-105); MAGNESIUM 2.2 MG/DL (1.6-2.4); PHOSPHORUS 3.6 MG/DL (2.3-4.7); POTASSIUM 4.2 MMOL/L (3.6-5.0); TOTAL PROTEIN 5.4 GM/DL (6.4-8.2)
[2019-04-29 03:55] LABS: SODIUM 123 MMOL/L (135-145)
--- NOTE | 2019-04-29 04:07 | Pulmonary Consultation ---
History of Present Illness History of Present Illness Date Seen by Provider: Apr 29, 2019 Time Seen by Provider: 04:02 Date of Admission Allergies and Home Medications Allergies Coded Allergies: morphine (Verified Allergy, Intermediate, Itching, 04/18/19) aspirin (Verified Allergy, Unknown, 01/13/18) prochlorperazine (Verified Allergy, Unknown, 01/13/18) Home Medications Acetaminophen 500 Mg Tablet, 500 MG PO Q6H PRN for PAIN-MILD (1-4), (Reported) Amlodipine Besylate 5 Mg Tablet, 5 MG PO DAILY, (Reported) Cholecalciferol (Vitamin D3) 5,000 Unit Tab.rapdis, 10,000-15,000 UNIT PO DAILY, (Reported) TAKES 10,000 TO 15,000 UNITS DAILY Dextroamphetamine/Amphetamine 30 Mg Cap.er.24h, 30 MG PO DAILY, (Reported) Diclofenac Sodium 100 Gm Gel..gram., 1 APPFUL TD Q6H, (Reported) APPLY TO THE TOES Diphenhydramine HCl 25 Mg Capsule, 50 MG PO Q4H PRN for ALLERGY SYMPTOMS, (Reported) Fluoxetine HCl 40 Mg Capsule, 40 MG PO DAILY, (Reported) TAKES A 40MG AND A 20MG DAILY TO EQUAL 60MG Fluoxetine HCl 20 Mg Capsule, 20 MG PO DAILY, (Reported) TAKES 20MG AND 40 MG TO EQUAL 60MG DAILY Gabapentin 300 Mg Capsule, 300 MG PO HS, (Reported) Ibuprofen 200 Mg Tablet, 400 MG PO Q6H PRN for PAIN-MILD (1-4), (Reported) Lactobacillus Combo No.10 1 Each Capsule, 1 EACH PO DAILY, (Reported) Levothyroxine Sodium 25 Mcg Tablet, 25 MCG PO DAILY, (Reported) Magnesium Oxide 400 Mg Tablet, 400 MG PO DAILY, (Reported) Multivitamin/Iron/Folic Acid 1 Each Tablet, 1 EACH PO DAILY, (Reported) Bovill-3/Dha/Epa/Fish Oil 1 Each Capsule, 2 EACH PO DAILY, (Reported) Omeprazole 40 Mg Capsule.dr, 40 MG PO HS, (Reported) Ondansetron HCl 4 Mg Tablet, 4 MG PO DAILY PRN for NAUSEA/VOMITING-1ST LINE, (R eported) Oxycodone HCl/Acetaminophen 1 Each Tablet, 1 TAB PO HS PRN for PAIN-MODERATE (5- 7), (Reported) Phytonadione 100 Mcg Tablet, 100 MCG PO DAILY, (Reported) Pseudoephedrine HCl 30 Mg Tablet, 30 MG PO Q4H PRN for CONGESTION, (Reported) Vitamin B Complex 1 Each Capsule, 1 EACH PO DAILY, (Reported) Zolpidem Tartrate 12.5 Mg Tab.mphase, 12.5 MG PO HS, (Reported) Past Hvrmski-Sxctbv-Cqbjjv Hx Patient Social History 2nd Hand Smoke Exposure: No Recent Foreign Travel: No Contact w/Someone Who Travel: No Recent Hopitalizations: No Seasonal Allergies Seasonal Allergies: No Past Medical History Surgeries: Yes (LUMPECTOMY AND MASECTOMY WITH RECONSTRUCTION ON RIGHT) Breast, Section, 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 Respiratory: Yes Asthma Cardiac: Yes Hypertension 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: Yes Neuropathy 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 Genitourinary: Yes (possible left ureteral obstruction) Gastrointestinal: Yes Gastroesophageal Reflux, Gall Bladder Disease Musculoskeletal: Yes (metastases to bone) Endocrine: Yes Hypothyroidsim HEENT: No Cancer: Yes (RECENT METS DIAGNOSIS) Bone, Breast Did You Recieve Any Treatments: Yes What Type of Treatment Did You: Chemotherapy Psychosocial: Yes ADD/ADHD, Sleep Difficulties, Depression Integumentary: No Blood Disorders: No Family Medical History No Pertinent Family Hx Review of Systems Time Seen by Provider: 04:06 Constitutional: Fever, Chills, Sweats, Weakness, Malaise, Other Eyes: No: Pain, Vision change, Conjunctivae inflammation, Eyelid inflammation, Other, Redness ENT: No: Ear pain, Ear discharge, Nose pain, Nose discharge, Nose congestion, Mouth pain, Mouth swelling, Throat pain, Throat swelling, Other Respiratory: No: Cough, Dry, Shortness of breath, SOB with excertion, Wheezing, Hemoptysis, Pleuritic Pain, Sputum, Wheezing, Other Cardiovascular: No: Chest Pain, Palpitations, Orthopnea, Paroxysmal Noc. Dyspnea, Edema, Lt Headedness, Other Sepsis Event Evaluation Height, Weight, BMI Height: '" Weight: lbs. oz. kg; 27.33 BMI Method: Exam Exam Vital Signs Date Time Temp Pulse Resp B/P (MAP) Pulse Ox O2 Delivery O2 Flow Rate FiO2 04/29/19 03:19 94 Room Air 04/29/19 03:19 36.2 04/29/19 02:31 94 Room Air 04/28/19 23:59 94 Room Air I & O 04/29/19 07:00 Intake Total 75 ml Output Total 150 ml Balance -75 ml Height & Weight Height: '" Weight: lbs. oz. kg; 27.33 BMI Method: General Appearance: Anxious, Mild Distress HEENT: PERRL/EOMI, TMs Normal, Normal ENT Inspection, Pharynx Normal Neck: Full Range of Motion, Non Tender, Supple Respiratory: Chest Non Tender, No Accessory Muscle Use, No Respiratory Distress, Decreased Breath Sounds Cardiovascular: Regular Rate, Rhythm, No Edema Results Lab Laboratory Tests 04/29/19 03:06 Assessment/Plan Assessment/Plan Neutropenic fever -Currently on Cefepime and Levaquin -Check MRSA nasal swab -Check Cdiff - Pt is having diarrhea Metastatic breast cancer with mets to bone and peritoneal carcinomatosis -Chemotherapy Anemia -Monitor for now Hyponatremia -Monitor Sinus tach -Monitor Mild Hypotension -Monitor for now Hydronephrosis left CHRIS RICHARD DO Apr 29, 2019 04:07
[2019-04-29] MEDS: MAGNESIUM 1 GM/100 ML IVPB 100 ML IV SCH (04:31)
[2019-04-29] MEDS: POTASSIUM CL 10MEQ/50ML IVPB 50 ML IV SCH (04:31)
[2019-04-29] MEDS: KCL 20 MEQ TAB (K-DUR) PO SCH ×2 (04:32→05:28)
[2019-04-29] MEDS: LEVOTHYROXINE 25 MCG (LEVOTHROID) TAB PO SCH (05:33)
[2019-04-29] MEDS: ONDANSETRON 4 MG/2 ML (SDV) Z0FRAN IVP PRN ×3 (05:36→23:23)
[2019-04-29] MEDS: SUCRALFATE 1 GM (CARAFATE) TAB PO SCH ×4 (05:41→21:04)
[2019-04-29] MEDS ORDERED: KCL 20 MEQ TAB (K-DUR) PO SCH (06:00)
[2019-04-29] MEDS ORDERED: MAGNESIUM 1 GM/100 ML IVPB 100 ML IV SCH (06:00)
[2019-04-29] MEDS ORDERED: POTASSIUM CL 10MEQ/50ML IVPB 50 ML IV SCH (06:00)
--- NOTE | 2019-04-29 08:21 | Diagnostic Imaging Report ---
Portable erect AP chest at 220 hours. INDICATION: Shortness of breath. FINDINGS: The heart size is within normal limits and stable when compared to 04/20/2019. The vague area of increased density along the periphery of the right thorax seen previously is again evident. The lungs are generally clear. There is no sign of failure, pneumonia or pleural effusion. The right-sided Port-A-Cath seen previously is unchanged in position. The mediastinum is not widened. The osseous structures are intact. IMPRESSION: Stable chest. There has been no adverse change since the prior exam. Dictated by: Dictated on workstation # [id number]
[2019-04-29] MEDS ORDERED: diphenhydrAMINE 50 MG/ML INJ (BENADRYL) ONE (08:41)
[2019-04-29] MEDS ORDERED: NS IV 500 ML 500 ML IV SCH (08:45)
[2019-04-29] MEDS ORDERED: ACETAMINOPHEN 500 MG TAB (TYLENOL) PO NR (08:45)
[2019-04-29] MEDS ORDERED: diphenhydrAMINE 50 MG/ML INJ (BENADRYL) IVP NR (08:45)
[2019-04-29] MEDS: LEVOFLOXACIN 750 MG/150 ML IV 150 ML IV SCH (09:10)
[2019-04-29] MEDS: FLUoxetine HCL 20 MG (PROzac) CAP PO SCH (09:10)
[2019-04-29] MEDS: PANTOPRAZOLE 40 MG (PROTONIX) VIAL IV SCH ×2 (09:11→20:53)
[2019-04-29] MEDS: DEXAMETHASONE 4 MG/ML SDV (DECADRON) IV SCH ×2 (09:11→21:01)
[2019-04-29] MEDS: FAMOTIDINE 20MG/2ML IV (PEPCID) IVP SCH ×2 (09:11→20:58)
[2019-04-29] MEDS: CEFEPIME INJECTION 2,000 MG in WATER (STERILE) FOR INJECTION 20 ML IV SCH ×2 (09:12→20:53)
--- NOTE | 2019-04-29 09:24 | Oncology Progress Note ---
Subjective Date Seen by a Provider: Apr 29, 2019 Time Seen by a Provider: 08:05 Subjective/Events-last exam Pt had fever yesterday morning and became hypotensive last night and transferred to ICU last night. CT of chest and abd last night showed increased ascites, NO free air, multiple levels of fluid levels suggesting small bowel obstruction. Day 7 post chemo Taxotere for breast cancer with extensive bone mets and per itoneal carcinomatosis. She is more alert this morning Still nausea, no vomiting. Two loose stools since last night No fever this morning Day 2 IV Cefepine and Levaquin. BP 90--120/60-80, tachycardia 100-110/min O2 sat 95% room air. Data Review Labs Laboratory Tests 04/29/19 03:06 Laboratory Tests 04/29/19 02:20: Urine Protein 1+H, Urine Bacteria MODERATEH 04/29/19 03:06: White Blood Count 1.5L, Red Blood Count 2.89L, Hemoglobin 7.2L, Hematocrit 22L, Mean Corpuscular Volume 77L, Red Cell Distribution Width 17.6H, Monocytes (%) (Auto) 27H, Neutrophils # (Auto) 0.8L, Lymphocytes # (Auto) 0.3L, Sodium Level 123*L, Carbon Dioxide Level 16L, Blood Urea Nitrogen 28H, Glucose Level 138H, Calcium Level 7.6L, Total Protein 5.4L, Albumin 2.9L Radiology NAME: SUZIE MILLER [facility] REC#: [id number] PT STATUS: ADM IN : 1960 PHYSICIAN: HUY STONE MD ADMIT DATE: 04/21/19 Draft Date of Exam:04/28/19 CT ANGIO CHEST/ABD W & W/O EXAMINATION: CTA of the chest and abdomen with and without contrast. INDICATION: Breast cancer, nausea and vomiting Contiguous axial sections were taken through the chest and abdomen prior to the administration of intravenous contrast. Subsequent additional images were obtained after intravenous contrast was administered. Sagittal coronal reconstructive images and MIP images of the aorta and its branches were performed as well. The previous CT abdomen/pelvis exam of 04/02/2019 noted ascites and raise the question of peritoneal carcinomatosis. There is also obstruction of the left collecting system. On this study the amount of ascites has increased somewhat. The depth of fluid about the right lobe of the liver now measures 2.3 cm as opposed to 0.7 cm on the prior exam. There still appears to be obstruction of the left collecting system although there is still no sign of obstructive calculus. In the interval since the previous exam numerous dilated fluid-filled segments of small bowel have developed. This appearance does suggest a small bowel obstruction. The transition point is not visualized as the pelvis was not included on this study. The solid organs of the abdomen and pelvis are essentially no different than on the prior exam. The stomach remains distended by fluid. There is also fluid extending into the esophagus. The images through the thorax show that the pulmonary arteries are well-opacified. There is no defect within the pulmonary arteries to indicate a pulmonary embolus. The aorta is not abnormally dilated and there is no sign of a dissection. Heart size is within normal limits. The lungs are generally clear although mild atelectasis/infiltrate has developed in each lung base. There is no mediastinal or hilar adenopathy. The thyroid gland where visualized is unremarkable. There is no obvious breast mass. The bone windows again show extensive metastatic skeletal disease. IMPRESSION: 1. The appearance of the abdomen has worsened since the prior exam as the ascites has increased. There also now appears to be a small bowel obstruction. Either a complete CT abdomen/pelvis exam or a contrast small bowel exam would be recommended for further study. 2. There is no evidence for pulmonary metastases or for a dissection. There is mild atelectasis/infiltrate in both lung bases. 3. There is persistent obstruction of the left collecting system. 4. The stomach is distended by fluid and there is fluid extending through the esophagus. 5. There is extensive metastatic skeletal disease. Dictated on workstation # [id number] Dict: 04/29/19 [id number] Trans: 04/29/19 0857 [facility] [id number] Interpreted by: DAISY PARRISH MD Electronically signed by: Physical Exam Vital Signs Vital Signs - First Documented 04/28/19 22:00 Pulse 112 Resp 28 B/P (MAP) 101/66 (78) Pulse Ox 95 O2 Delivery Room Air Capillary Refill : Height, Weight, BMI Height: '" Weight: lbs. oz. kg; 27.33 BMI Method: General Appearance: No Apparent Distress, Chronically ill, Other (lathargic) HEENT: PERRL/EOMI Neck: Non Tender, Supple Respiratory: Lungs Clear, No Accessory Muscle Use, No Respiratory Distress Cardiovascular: Regular Rate, Rhythm, Tachycardia Gastrointestinal: Soft, Distended, Other (mild tenderness) Extremity: Non Tender, No Calf Tenderness, No Pedal Edema Neurologic/Psychiatric: Alert, Oriented x3 Impression & Plan Impression & Plan IMP: 1. Metastatic breast cancer with extensive bone and peritoneal metastasis/carcinomatosis. Day 6 post chemo Taxotere 2. Neutropenic fever on IV cefepime and Levaquin day 2. No more fever over last 12 hrs. 3. Peritoneal carcinomatosis with ascites and small bowel obstruction most likely from the ileum bowel of the peritoneal cancer disease and/or chemo. No perforation. Persistent nausea and vomiting. Diarrhea started after chemotherapy. 4. Left hydronephrosis due to obstruction. NO visible stone per CT scan. Pending urology evaluation. 5 UA last night showed UTI, culture and sensitivity pending 6. Anemia, symptomatic 7. Hyponatremia 8. Pt is full code at this point. Plan: 1. Transfuse 2 units of pRBC today 2. Consult Dr French for recommendation from the surgical point of view of the small bowel obstruction. I personally do not think patient can handle small bowel follow through study. 3. Reglan 5mg IV q 8hrs 4. Continue IV antiemetics, Zofran, Decadron, Protonix, Pepcid 5. NPO bowel rest except small sip water to relieve dry mouth. Hold off oral medicine today. 6. Continue IV antibiotics and f/u UA culture and sensitivities 7. Pharmacy to manage the TPN and sodium. 8. I would NOT give neupogen to her neutropenia due to her extensive bone mets. 9. Appreciate Dr Jacinto consultation and help. Clinical Quality Measures DVT/VTE Risk/Contraindication: Risk Factor Score Per Nursin RFS Level Per Nursing on Admit: 4+=Very High HUY STONE MD Apr 29, 2019 09:24
[2019-04-29] MEDS ORDERED: ONDANSETRON 4 MG/2 ML (SDV) Z0FRAN IVP PRN (10:15)
[2019-04-29] MEDS ORDERED: AA 4.25% W/LYTES IN D5W IV SOL 1,000 ML IV SCH (10:15)
[2019-04-29] MEDS ORDERED: PROMETHAZINE INJ 25 MG/ML (PHENERGAN) AMP IVP PRN (10:15)
[2019-04-29] MEDS ORDERED: HOLD METFORMIN - RECEIVED CONTRAST 20 ML VIAL IV SCH (10:15)
[2019-04-29] MEDS ORDERED: LEVOFLOXACIN 750 MG/150 ML IV 150 ML IV SCH (10:15)
[2019-04-29] MEDS ORDERED: NS (IVPB) 250 ML ONE (10:50)
[2019-04-29] MEDS ORDERED: SUCRALFATE 1 GM (CARAFATE) TAB PO SCH (11:00)
--- NOTE | 2019-04-29 12:37 | Consultation - Surgery ---
[facility] 04/29/19 1237: History of Present Illness History of Present Illness Patient Consulted On(jose j/time) 04/29/19 12:32 Date Seen by Provider: Apr 29, 2019 Time Seen by Provider: 12:32 Reason for Visit: questionable SBO History of Present Illness This is a 59 y/o female with hx of breast cancer with extensive bone ARMENTA and peritoneal carcinomatosis. Pt has been admitted to the hospital since 04/17/2019 and is on Day 7 post chemo w/ Taxotere. She was transferred to the ICU last night 2/ a hypotensive episode. She has been having nausea w/o vomiting and her CT from yesterday shows increased ascites, and multiple air-fluid levels suggestive of possible SBO; no free air visualized. At the time of eval, she denies any N/V, constipation, abd pain, fever, or chills. States she has been passing gas and has been having regular loose stools, with last one being earlier this AM. Reports generalized weakness. No further complaints at this time. Allergies and Home Medications Allergies Coded Allergies: morphine (Verified Allergy, Intermediate, Itching, 04/18/19) aspirin (Verified Allergy, Unknown, 01/13/18) prochlorperazine (Verified Allergy, Unknown, 01/13/18) Home Medications Acetaminophen 500 Mg Tablet, 500 MG PO Q6H PRN for PAIN-MILD (1-4), (Reported) Amlodipine Besylate 5 Mg Tablet, 5 MG PO DAILY, (Reported) Cholecalciferol (Vitamin D3) 5,000 Unit Tab.rapdis, 10,000-15,000 UNIT PO DAILY, (Reported) TAKES 10,000 TO 15,000 UNITS DAILY Dextroamphetamine/Amphetamine 30 Mg Cap.er.24h, 30 MG PO DAILY, (Reported) Diclofenac Sodium 100 Gm Gel..gram., 1 APPFUL TD Q6H, (Reported) APPLY TO THE TOES Diphenhydramine HCl 25 Mg Capsule, 50 MG PO Q4H PRN for ALLERGY SYMPTOMS, (Reported) Fluoxetine HCl 40 Mg Capsule, 40 MG PO DAILY, (Reported) TAKES A 40MG AND A 20MG DAILY TO EQUAL 60MG Fluoxetine HCl 20 Mg Capsule, 20 MG PO DAILY, (Reported) TAKES 20MG AND 40 MG TO EQUAL 60MG DAILY Gabapentin 300 Mg Capsule, 300 MG PO HS, (Reported) Ibuprofen 200 Mg Tablet, 400 MG PO Q6H PRN for PAIN-MILD (1-4), (Reported) Lactobacillus Combo No.10 1 Each Capsule, 1 EACH PO DAILY, (Reported) Levothyroxine Sodium 25 Mcg Tablet, 25 MCG PO DAILY, (Reported) Magnesium Oxide 400 Mg Tablet, 400 MG PO DAILY, (Reported) Multivitamin/Iron/Folic Acid 1 Each Tablet, 1 EACH PO DAILY, (Reported) [place]-3/Dha/Epa/Fish Oil 1 Each Capsule, 2 EACH PO DAILY, (Reported) Omeprazole 40 Mg Capsule.dr, 40 MG PO HS, (Reported) Ondansetron HCl 4 Mg Tablet, 4 MG PO DAILY PRN for NAUSEA/VOMITING-1ST LINE, (Reported) Oxycodone HCl/Acetaminophen 1 Each Tablet, 1 TAB PO HS PRN for PAIN-MODERATE (5- 7), (Reported) Phytonadione 100 Mcg Tablet, 100 MCG PO DAILY, (Reported) Pseudoephedrine HCl 30 Mg Tablet, 30 MG PO Q4H PRN for CONGESTION, (Reported) Vitamin B Complex 1 Each Capsule, 1 EACH PO DAILY, (Reported) Zolpidem Tartrate 12.5 Mg Tab.mphase, 12.5 MG PO HS, (Reported) Past Glxdbdh-Aeqbfh-Swlgbb Hx Patient Social History 2nd Hand Smoke Exposure: No Recent Foreign Travel: No Contact w/Someone Who Travel: No Recent Hopitalizations: No Seasonal Allergies Seasonal Allergies: No Surgeries History of Surgeries: Yes (LUMPECTOMY AND MASECTOMY WITH RECONSTRUCTION ON RIGHT) Surgeries: Breast, Section, 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 Respiratory History of Respiratory Disorde: Yes Respiratory Disorders: Asthma Cardiovascular History of Cardiac Disorders: Yes Cardiac Disorders: Hypertension 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 History of 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 Disord: Yes 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 Disorders: Neuropathy 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 Genitourinary History of Genitourinary Disor: Yes (possible left ureteral obstruction) Gastrointestinal History of Gastrointestinal Di: Yes Gastrointestinal Disorders: Gastroesophageal Reflux, Gall Bladder Disease Musculoskeletal History of Musculoskeletal Dis: Yes (metastases to bone) Endocrine History of Endocrine Disorders: Yes Endocrine Disorders: Hypothyroidsim HEENT History of HEENT Disorders: No Cancer History of Cancer: Yes (RECENT METS DIAGNOSIS) Cancer: Bone, Breast Psychosocial History of Psychiatric Problem: Yes Behavioral Health Disorders: ADD/ADHD, Sleep Difficulties, Depression Integumentary History of Skin or Integumenta: No Blood Transfusions History of Blood Disorders: No Family Medical History Significant Family History: No Pertinent Family Hx Review of Systems-General Constitutional: No chills, No fever EENTM: no symptoms reported Respiratory: No cough, No dyspnea on exertion Cardiovascular: No chest pain, No edema, No palpitations Gastrointestinal: No abdominal pain, No constipation, No diarrhea, No nausea, No vomiting; other (loose stools) Musculoskeletal: No back pain, No joint pain Physical Exam-General Problems Physical Exam Vital Signs Vital Signs - First Documented 04/28/19 22:00 Pulse 112 Resp 28 B/P (MAP) 101/66 (78) Pulse Ox 94 O2 Delivery Room Air Capillary Refill : General Appearance: WD/WN, no apparent distress HEENT: normal ENT inspection Neck: normal inspection Respiratory: chest non-tender, lungs clear, normal breath sounds Cardiovascular: regular rate, rhythm, no JVD Gastrointestinal: normal bowel sounds, non tender, soft, distended (mild, ) Extremities: non-tender, normal inspection, normal capillary refill Neurologic/Psychiatric: alert, oriented x 3 Skin: normal color, warm/dry Lymphatic: no adenopathy Data Review Labs Laboratory Tests 04/29/19 02:20: Urine Color DARK YELLOW, Urine Clarity CLEAR, Urine pH 6.5, Urine Specific [place] <=1.005, Urine Protein 1+H, Urine Glucose (UA) NEGATIVE, Urine Ketones NEGATIVE, Urine Nitrite NEGATIVE, Urine Bilirubin NEGATIVE, Urine Urobilinogen 0.2, Urine Leukocyte Esterase NEGATIVE, Urine RBC (Auto) TRACE-I, Urine RBC RARE, Urine WBC 0-2, Urine Squamous Epithelial Cells 2-5, Urine Crystals NONE, Urine Bacteria MODERATEH, Urine Casts NONE, Urine Mucus NEGATIVE, Urine Culture Indicated YES 04/29/19 03:06: White Blood Count 1.5L, Red Blood Count 2.89L, Hemoglobin 7.2L, Hematocrit 22L, Mean Corpuscular Volume 77L, Mean Corpuscular Hemoglobin 25, Mean Corpuscular Hemoglobin Concent 32, Red Cell Distribution Width 17.6H, Platelet Count 307, Mean Platelet Volume 9.1, Neutrophils (%) (Auto) 52, Lymphocytes (%) (Auto) 20, Monocytes (%) (Auto) 27H, Eosinophils (%) (Auto) 2, Basophils (%) (Auto) 0, Neutrophils # (Auto) 0.8L, Lymphocytes # (Auto) 0.3L, Monocytes # (Auto) 0.4, Eosinophils # (Auto) 0.0, Basophils # (Auto) 0.0, Sodium Level 123*L, Potassium Level 4.2, Chloride Level 98, Carbon Dioxide Level 16L, Anion Gap 9, Blood Urea Nitrogen 28H, Creatinine 0.81, Estimat Glomerular Filtration Rate > 60, BUN/Creatinine Ratio 35, Glucose Level 138H, Calcium Level 7.6L, Corrected Calcium 8.5, Phosphorus Level 3.6, Magnesium Level 2.2, Total Bilirubin 0.5, Aspartate Amino Transf (AST/SGOT) 13, Alanine Aminotransferase (ALT/SGPT) 22, Alkaline Phosphatase 78, Total Protein 5.4L, Albumin 2.9L Assessment/Plan Assessment/Plan Assessment/Plan Neutropenic fever Metastatic breast cancer with mets to bone and peritoneal carcinomatosis Diarrhea Anemia Hyponatremia Hydronephrosis of left kidney pt currently receiving chemo Taxotere on Cefepime and levofloxacin MRSA nasal swab pending C-diff screening pending Regarding possible SBO: Pt passing gas, having BMs, and has no abd pain; recommend continuing with current conservative management and close monitoring at this time. Will follow Clinical Quality Measures DVT/VTE Risk/Contraindication: Risk Factor Score Per Nursin RFS Level Per Nursing on Admit: 4+=Very High NICKIE PATINO DO 04/29/19 9508: History of Present Illness History of Present Illness History of Present Illness Patient with Ct scan showing multiple ashleigh fluid levels possible sbo, no free air. Patient Last night transferred to ICU due to hypotension. She has been having nausea no emesis. Patient is passing flatus and loose stools. Patient states fluid in abdomen increasing, but not to where she is uncomfortable. Patient no difficulty breathing at this time. Does feel weak. Hgb lower and receiving 2 units prbc. Family at bedside. Allergies and Home Medications Allergies Coded Allergies: morphine (Verified Allergy, Intermediate, Itching, 04/18/19) aspirin (Verified Allergy, Unknown, 01/13/18) prochlorperazine (Verified Allergy, Unknown, 01/13/18) Home Medications Acetaminophen 500 Mg Tablet, 500 MG PO Q6H PRN for PAIN-MILD (1-4), (Reported) Amlodipine Besylate 5 Mg Tablet, 5 MG PO DAILY, (Reported) Cholecalciferol (Vitamin D3) 5,000 Unit Tab.rapdis, 10,000-15,000 UNIT PO DAILY, (Reported) TAKES 10,000 TO 15,000 UNITS DAILY Dextroamphetamine/Amphetamine 30 Mg Cap.er.24h, 30 MG PO DAILY, (Reported) Diclofenac Sodium 100 Gm Gel..gram., 1 APPFUL TD Q6H, (Reported) APPLY TO THE TOES Diphenhydramine HCl 25 Mg Capsule, 50 MG PO Q4H PRN for ALLERGY SYMPTOMS, (Reported) Fluoxetine HCl 40 Mg Capsule, 40 MG PO DAILY, (Reported) TAKES A 40MG AND A 20MG DAILY TO EQUAL 60MG Fluoxetine HCl 20 Mg Capsule, 20 MG PO DAILY, (Reported) TAKES 20MG AND 40 MG TO EQUAL 60MG DAILY Gabapentin 300 Mg Capsule, 300 MG PO HS, (Reported) Ibuprofen 200 Mg Tablet, 400 MG PO Q6H PRN for PAIN-MILD (1-4), (Reported) Lactobacillus Combo No.10 1 Each Capsule, 1 EACH PO DAILY, (Reported) Levothyroxine Sodium 25 Mcg Tablet, 25 MCG PO DAILY, (Reported) Magnesium Oxide 400 Mg Tablet, 400 MG PO DAILY, (Reported) Multivitamin/Iron/Folic Acid 1 Each Tablet, 1 EACH PO DAILY, (Reported) [place]-3/Dha/Epa/Fish Oil 1 Each Capsule, 2 EACH PO DAILY, (Reported) Omeprazole 40 Mg Capsule.dr, 40 MG PO HS, (Reported) Ondansetron HCl 4 Mg Tablet, 4 MG PO DAILY PRN for NAUSEA/VOMITING-1ST LINE, (Reported) Oxycodone HCl/Acetaminophen 1 Each Tablet, 1 TAB PO HS PRN for PAIN-MODERATE (5- 7), (Reported) Phytonadione 100 Mcg Tablet, 100 MCG PO DAILY, (Reported) Pseudoephedrine HCl 30 Mg Tablet, 30 MG PO Q4H PRN for CONGESTION, (Reported) Vitamin B Complex 1 Each Capsule, 1 EACH PO DAILY, (Reported) Zolpidem Tartrate 12.5 Mg Tab.mphase, 12.5 MG PO HS, (Reported) Patient Home Medication List Home Medication List Reviewed: Yes Past Nlxrpqi-Nftapt-Yrncfq Hx Reviewed Nursing Assessment Reviewed/Agree w Nursing PMH: Yes Family Medical History Significant Family History: No Pertinent Family Hx Review of Systems-General Constitutional: No chills; fever EENTM: no symptoms reported; No hearing loss, No ear pain, No blurred vision, No double vision Respiratory: No cough, No dyspnea on exertion Cardiovascular: No chest pain, No edema, No palpitations Gastrointestinal: No abdominal pain, No constipation, No diarrhea; nausea; No vomiting; other (loose stools. ascites) Genitourinary: No no symptoms reported Musculoskeletal: No back pain, No joint pain Skin: No no symptoms reported Psychiatric/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: Denies Anxiety, Denies Depressed Physical Exam-General Problems Physical Exam General Appearance: WD/WN, no apparent distress HEENT: PERRL/EOMI, normal ENT inspection Neck: non-tender, full range of motion, supple, normal inspection Respiratory: chest non-tender, no respiratory distress, no accessory muscle use Cardiovascular: regular rate, rhythm Gastrointestinal: soft, distended (mild, fluid wave) Rectal: deferred Back: normal inspection, no CVA tenderness Extremities: non-tender, normal inspection Neurologic/Psychiatric: alert, oriented x 3 Skin: normal color, warm/dry Lymphatic: no adenopathy Assessment/Plan Assessment/Plan Assessment/Plan Neutropenic fever Metastatic breast cancer with mets to bone and peritoneal carcinomatosis Diarrhea Anemia Hyponatremia Hydronephrosis of left kidneyz patient passing flatus and having stools. no abdominal pain. ascites building back up could be why has some distention conservative measures at this time, no surgical intervention will follow. Supervisory-Addendum Brief Verification & Attestation Participated in pt care: history, MDM, physical Personally performed: exam, history, MDM, supervision of care Care discussed with: Medical Student Procedures: n/a Results interpretation: Verified all documentation Verification and Attestation of Medical Student E/M Service A medical student performed and documented this service in my presence. I reviewed and verified all information documented by the medical student and made modifications to such information, when appropriate. I personally performed the physical exam and medical decision making. Nickie Patino, Apr 29, 2019,19:02 [facility] Apr 29, 2019 12:37 NICKIE PATINO DO Apr 29, 2019 18:58
[2019-04-29] MEDS: SODIUM CHLORIDE IV SCH ×3 (14:37)
[2019-04-29] MEDS: LYTES IV SCH ×3 (14:37)
[2019-04-29] MEDS: SODIUM ACETATE IV SCH ×3 (14:37)
[2019-04-29] MEDS: [UNRECOGNIZED DRUG - OTHER] IV SCH ×3 (14:37)
--- NOTE | 2019-04-29 14:40 | NUR ---
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 She shared about providing spiritual support after the [place] [employer], and also shared her health journey with cancer. She said this recent episode has given her peace with moving on from her practice.
[2019-04-29] MEDS: GABAPENTIN 300 MG (NEURONTIN) CAP PO SCH (17:03)
[2019-04-29] MEDS: PROMETHAZINE INJ 25 MG/ML (PHENERGAN) AMP IVP PRN (18:34)
[2019-04-29] MEDS ORDERED: GABAPENTIN 300 MG (NEURONTIN) CAP PO SCH (19:00)
[2019-04-29] MEDS ORDERED: CEFEPIME INJECTION 2,000 MG in WATER (STERILE) FOR INJECTION 20 ML IV SCH (21:00)
[2019-04-29] MEDS ORDERED: PANTOPRAZOLE 40 MG (PROTONIX) VIAL IV SCH (21:00)
[2019-04-29] MEDS ORDERED: FAMOTIDINE 20MG/2ML IV (PEPCID) IVP SCH (21:00)
[2019-04-29] MEDS ORDERED: DEXAMETHASONE 4 MG/ML SDV (DECADRON) IV SCH (21:00)
[2019-04-30] VITALS (12 sets, daily range): BP systolic 102–128; BP diastolic 62–89
[2019-04-30] MEDS: PROMETHAZINE INJ 25 MG/ML (PHENERGAN) AMP IVP PRN ×2 (01:23→19:38)
[2019-04-30] MEDS: SODIUM ACETATE IV SCH ×9 (01:24→15:54)
[2019-04-30] MEDS: LYTES IV SCH ×9 (01:24→15:54)
[2019-04-30] MEDS: [UNRECOGNIZED DRUG - OTHER] IV SCH ×6 (01:24→13:08)
[2019-04-30] MEDS: SODIUM CHLORIDE IV SCH ×9 (01:24→15:54)
[2019-04-30 03:47] LABS: BASOPHILS % (AUTO) 0 % (0-10); EOSINOPHILS % (AUTO) 0 % (0-10); HEMATOCRIT 27 % (35-52); HEMOGLOBIN 8.7 G/DL (11.5-16.0); LYMPHOCYTES # (AUTO) 0.6 X 10^3 (1.0-4.0); LYMPHOCYTES % (AUTO) 11 % (12-44); MEAN CORPUSCULAR HEMOGLOBIN 25 PG (25-34); MEAN CORPUSCULAR HGB CONC 32 G/DL (32-36); MEAN CORPUSCULAR VOLUME 79 FL (80-99); MEAN PLATELET VOLUME 9.4 FL (7.4-10.4); MONOCYTES % (AUTO) 18 % (0-12); NEUTROPHILS % (AUTO) 71 % (42-75); PLATELET COUNT 301 10^3/uL (130-400); RED CELL DISTRIBUTION WIDTH 17.6 % (10.0-14.5); WHITE BLOOD COUNT 5.6 10^3/uL (4.3-11.0)
[2019-04-30 04:07] LABS: ALANINE AMINOTRANSFERASE 21 U/L (0-55); ALBUMIN 2.7 GM/DL (3.2-4.5); ALKALINE PHOSPHATASE 64 U/L (40-136); BILIRUBIN,TOTAL 0.3 MG/DL (0.1-1.0); BUN/CREATININE RATIO 32; CALCIUM 7.9 MG/DL (8.5-10.1); CARBON DIOXIDE 18 MMOL/L (21-32); CHLORIDE 104 MMOL/L (98-107); CREATININE SERUM 0.71 MG/DL (0.60-1.30); GFR ESTIMATED > 60; GLUCOSE 136 MG/DL (70-105); MAGNESIUM 2.5 MG/DL (1.6-2.4); PHOSPHORUS 2.2 MG/DL (2.3-4.7); POTASSIUM 4.3 MMOL/L (3.6-5.0); SODIUM 131 MMOL/L (135-145); TOTAL PROTEIN 5.4 GM/DL (6.4-8.2)
[2019-04-30] MEDS: POTASSIUM CL 10MEQ/50ML IVPB 50 ML IV SCH (05:21)
[2019-04-30] MEDS: MAGNESIUM 1 GM/100 ML IVPB 100 ML IV SCH (05:21)
[2019-04-30] MEDS: KCL 20 MEQ TAB (K-DUR) PO SCH ×2 (05:22→07:25)
[2019-04-30] MEDS: ONDANSETRON 4 MG/2 ML (SDV) Z0FRAN IVP PRN ×2 (05:35→17:45)
[2019-04-30] MEDS ORDERED: KCL 20 MEQ TAB (K-DUR) PO SCH (06:00)
[2019-04-30] MEDS ORDERED: POTASSIUM CL 10MEQ/50ML IVPB 50 ML IV SCH (06:00)
[2019-04-30] MEDS ORDERED: MAGNESIUM 1 GM/100 ML IVPB 100 ML IV SCH (06:00)
[2019-04-30] MEDS ORDERED: LEVOTHYROXINE 25 MCG (LEVOTHROID) TAB PO SCH (06:30)
--- NOTE | 2019-04-30 06:44 | Pulmonary Progress Note ---
Sepsis Event Evaluation Height, Weight, BMI Height: '" Weight: lbs. oz. kg; 27.33 BMI Method: Exam Exam Vital Signs Date Time Temp Pulse Resp B/P (MAP) Pulse Ox O2 Delivery O2 Flow Rate FiO2 04/30/19 06:00 86 15 102/84 (90) 96 Room Air 04/30/19 05:00 81 22 109/67 (81) 97 Room Air 04/30/19 04:00 80 15 110/77 (88) 98 Room Air 04/30/19 04:00 94 Room Air 04/30/19 04:00 36.2 04/30/19 03:00 79 13 120/79 (93) 97 Room Air 04/30/19 02:00 81 18 120/74 (89) 95 Room Air 04/30/19 01:00 82 20 112/72 (85) 93 Room Air 04/30/19 01:00 83 04/30/19 00:00 94 Room Air 04/30/19 00:00 35.7 04/30/19 00:00 82 21 105/65 (78) 95 Room Air 04/29/19 23:00 80 16 98/62 (74) 95 Room Air 04/29/19 22:00 87 25 105/64 (78) 95 Room Air 04/29/19 21:00 85 17 107/70 (82) 95 Room Air 04/29/19 20:00 89 28 112/72 (85) 98 Room Air 04/29/19 20:00 94 Room Air 04/29/19 19:17 36.7 04/29/19 19:00 83 17 118/76 (90) 96 Room Air 04/29/19 19:00 84 04/29/19 18:00 87 15 105/61 (76) 96 Room Air 04/29/19 17:04 36.8 82 14 114/73 96 Room Air 04/29/19 17:00 81 18 114/73 (87) 96 Room Air 04/29/19 16:00 87 15 102/71 (81) 98 Room Air 04/29/19 16:00 94 Room Air 04/29/19 15:32 36.9 04/29/19 15:20 36.4 91 16 102/64 98 Room Air 04/29/19 15:05 36.3 104 20 105/68 98 Room Air 04/29/19 15:00 93 17 105/64 (78) 96 Room Air 04/29/19 14:00 96 33 124/92 (103) 94 Room Air 04/29/19 13:37 36.3 93 16 111/69 Room Air 04/29/19 13:00 95 19 114/70 (85) 95 Room Air 04/29/19 12:24 102 04/29/19 12:01 36.9 04/29/19 12:00 98 24 109/64 (79) 96 Room Air 04/29/19 12:00 94 Room Air 04/29/19 11:15 36.1 101 16 110/80 96 Room Air 04/29/19 11:00 100 23 106/67 (80) 98 Room Air 04/29/19 11:00 37.1 100 16 107/69 97 Room Air 04/29/19 10:00 101 15 107/69 (82) 99 Room Air 04/29/19 09:00 101 27 97 Room Air 04/29/19 08:00 101 24 102/67 (79) 96 Room Air 04/29/19 08:00 94 Room Air 04/29/19 07:00 102 04/29/19 07:00 95 20 105/55 (72) 96 Room Air I & O 04/30/19 07:00 Intake Total 575 ml Output Total 1600 ml Balance -1025 ml Height & Weight Height: '" Weight: lbs. oz. kg; 27.33 BMI Method: General Appearance: No Apparent Distress, Chronically ill, Other (lathargic) HEENT: PERRL/EOMI Neck: Non Tender, Supple Respiratory: Lungs Clear, No Accessory Muscle Use, No Respiratory Distress Cardiovascular: Regular Rate, Rhythm, Tachycardia Gastrointestinal: soft, distended (mild, fluid wave) Extremity: Non Tender, No Calf Tenderness, No Pedal Edema Neurologic/Psychiatric: Alert, Oriented x3 Results Lab Laboratory Tests 04/29/19 03:06 04/30/19 03:32 Assessment/Plan Assessment/Plan Neutropenic fever -Currently on Cefepime and Levaquin -Check MRSA nasal swab -Check Cdiff - Pt is having diarrhea Metastatic breast cancer with mets to bone and peritoneal carcinomatosis -Chemotherapy Anemia -Monitor for now Hyponatremia -Monitor Sinus tach -Monitor Mild Hypotension -Monitor for now Hydronephrosis left CHRIS RICHARD DO Apr 30, 2019 06:44
--- NOTE | 2019-04-30 07:22 | Diagnostic Imaging Report ---
CHEST 1 VIEW, AP/PA ONLY Indication: Nausea, vomiting and breast cancer Comparison: 04/29/2019 Findings: Stable right IJ Port-A-Cath. A few calcified left basilar pulmonary nodules are stable. No pleural effusion or pneumothorax. Stable cardiomediastinal silhouette. Impression: 1. Stable exam without acute process. Dictated by: Dictated on workstation # [id number]
[2019-04-30] MEDS: LEVOTHYROXINE 25 MCG (LEVOTHROID) TAB PO SCH (07:25)
[2019-04-30] MEDS: SUCRALFATE 1 GM (CARAFATE) TAB PO SCH ×4 (07:25→21:00)
[2019-04-30] MEDS: DEXAMETHASONE 4 MG/ML SDV (DECADRON) IV SCH (08:25)
[2019-04-30] MEDS: CEFEPIME INJECTION 2,000 MG in WATER (STERILE) FOR INJECTION 20 ML IV SCH ×2 (08:25→20:35)
[2019-04-30] MEDS: FAMOTIDINE 20MG/2ML IV (PEPCID) IVP SCH ×2 (08:25→20:35)
[2019-04-30] MEDS: LEVOFLOXACIN 750 MG/150 ML IV 150 ML IV SCH (08:26)
[2019-04-30] MEDS: PANTOPRAZOLE 40 MG (PROTONIX) VIAL IV SCH ×2 (08:26→20:35)
[2019-04-30] MEDS: FLUoxetine HCL 20 MG (PROzac) CAP PO SCH (08:26)
[2019-04-30] MEDS ORDERED: NS INJ ONE ×2 (08:28→08:43)
[2019-04-30] MEDS ORDERED: SODIUM PHOSPHATE INJ ONE ×2 (08:28→08:43)
[2019-04-30] MEDS ORDERED: FLUoxetine HCL 20 MG (PROzac) CAP PO SCH (09:00)
[2019-04-30] MEDS ORDERED: [UNRECOGNIZED DRUG - OTHER] PO SCH (09:00)
--- NOTE | 2019-04-30 09:51 | Oncology Progress Note ---
Subjective Date Seen by a Provider: Apr 30, 2019 Time Seen by a Provider: 09:39 Subjective/Events-last exam Pt is feeling better. No more nausea vomiting so far. No fever Still have watery diarrhea 4x over last 24 hrs WBC recovered to normal today, WBC 5.6 and ANC 4 Sodium improved Hemodynamic stable, HR 80-90/min range She looked a lot better today. Will transfer to 4th floor today. Data Review Labs Laboratory Tests 04/30/19 03:32 Laboratory Tests 04/29/19 02:20: Urine Protein 1+H, Urine Bacteria MODERATEH 04/29/19 03:06: White Blood Count 1.5L, Red Blood Count 2.89L, Hemoglobin 7.2L, Hematocrit 22L, Mean Corpuscular Volume 77L, Red Cell Distribution Width 17.6H, Monocytes (%) (Auto) 27H, Neutrophils # (Auto) 0.8L, Lymphocytes # (Auto) 0.3L, Sodium Level 123*L, Carbon Dioxide Level 16L, Blood Urea Nitrogen 28H, Glucose Level 138H, Calcium Level 7.6L, Total Protein 5.4L, Albumin 2.9L 04/30/19 03:32: Red Blood Count 3.42L, Hemoglobin 8.7#L, Hematocrit 27L, Mean Corpuscular Volume 79L, Red Cell Distribution Width 17.6H, Monocytes (%) (Auto) 18H, Lymphocytes # (Auto) 0.6L, Sodium Level 131L, Carbon Dioxide Level 18L, Blood Urea Nitrogen 23H, Glucose Level 136H, Calcium Level 7.9L, Total Protein 5.4L, Albumin 2.7L, Lymphocytes (%) (Auto) 11L, Phosphorus Level 2.2L, Magnesium Level 2.5H Radiology NAME: SUZIE MILLER [employer] REC#: [id number] PT STATUS: ADM IN : 1960 PHYSICIAN: HUY STONE MD ADMIT DATE: 04/21/19 Draft Date of Exam:04/28/19 CT ANGIO CHEST/ABD W & W/O EXAMINATION: CTA of the chest and abdomen with and without contrast. INDICATION: Breast cancer, nausea and vomiting Contiguous axial sections were taken through the chest and abdomen prior to the administration of intravenous contrast. Subsequent additional images were obtained after intravenous contrast was administered. Sagittal coronal reconstructive images and MIP images of the aorta and its branches were performed as well. The previous CT abdomen/pelvis exam of 04/02/2019 noted ascites and raise the question of peritoneal carcinomatosis. There is also obstruction of the left collecting system. On this study the amount of ascites has increased somewhat. The depth of fluid about the right lobe of the liver now measures 2.3 cm as opposed to 0.7 cm on the prior exam. There still appears to be obstruction of the left collecting system although there is still no sign of obstructive calculus. In the interval since the previous exam numerous dilated fluid-filled segments of small bowel have developed. This appearance does suggest a small bowel obstruction. The transition point is not visualized as the pelvis was not included on this study. The solid organs of the abdomen and pelvis are essentially no different than on the prior exam. The stomach remains distended by fluid. There is also fluid extending into the esophagus. The images through the thorax show that the pulmonary arteries are well-opacified. There is no defect within the pulmonary arteries to indicate a pulmonary embolus. The aorta is not abnormally dilated and there is no sign of a dissection. Heart size is within normal limits. The lungs are generally clear although mild atelectasis/infiltrate has developed in each lung base. There is no mediastinal or hilar adenopathy. The thyroid gland where visualized is unremarkable. There is no obvious breast mass. The bone windows again show extensive metastatic skeletal disease. IMPRESSION: 1. The appearance of the abdomen has worsened since the prior exam as the ascites has increased. There also now appears to be a small bowel obstruction. Either a complete CT abdomen/pelvis exam or a contrast small bowel exam would be recommended for further study. 2. There is no evidence for pulmonary metastases or for a dissection. There is mild atelectasis/infiltrate in both lung bases. 3. There is persistent obstruction of the left collecting system. 4. The stomach is distended by fluid and there is fluid extending through the esophagus. 5. There is extensive metastatic skeletal disease. Dictated on workstation # [id number] Dict: 04/29/19 0748 Trans: 04/29/[address] [facility] [id number] Interpreted by: DAISY PARRISH MD Electronically signed by: Physical Exam Vital Signs Vital Signs - First Documented 04/28/19 22:00 Pulse 112 Resp 28 B/P (MAP) 101/66 (78) Pulse Ox 94 O2 Delivery Room Air Capillary Refill : Height, Weight, BMI Height: '" Weight: lbs. oz. kg; 27.33 BMI Method: General Appearance: No Apparent Distress Neck: Non Tender, Supple Respiratory: Chest Non Tender, No Accessory Muscle Use, No Respiratory Distress Cardiovascular: Regular Rate, Rhythm Gastrointestinal: Non Tender, Soft, Distended Extremity: Non Tender, No Calf Tenderness, No Pedal Edema Neurologic/Psychiatric: Alert, Oriented x3 Impression & Plan Impression & Plan IMP: 1. Metastatic breast cancer with extensive bone and peritoneal metastasis/carcinomatosis. Day 7 post chemo Taxotere 2. Neutropenic fever on IV cefepime and Levaquin day 3. No more fever over last 36 hrs. 3. Peritoneal carcinomatosis with ascites and small bowel obstruction most likely from the ileum bowel of the peritoneal cancer disease and/or chemo. No perforation. Nausea and vomiting better. Diarrhea started after chemotherapy and still has 4x water over last 24hrs. 4. Left hydronephrosis due to obstruction. NO visible stone per CT scan. Pending urology evaluation. 5 UA showed UTI, culture and sensitivity pending. We collected UA and culture after the IV antibiotics started since patient could not make urine at that time. 6. Anemia, improved after 2 u RBC yesterday 7. Hyponatremia, improved 8. Pt is full code at this point. Plan: 1. Transfer out of ICU to 4th floor. 2. Repeat CT scan of abd/pelvis with contrast later today or tomorrow morning to evaluate small bowel obstruction. 3. Stop Levaquin after today's dose. Stop Cefepime after tomorrow morning dose if no fever for 48 hrs. 4. Continue IV antiemetics, Zofran, Decadron, Protonix, Pepcid. Reduce Decadron today and then wean off in 2 -3 days. 5. Continue NPO bowel rest except small sip water to relieve dry mouth. Hold off oral medicine today. Awaiting for CT scan result and then determine the next step. 6. F/u UA culture and sensitivities. 7. Pharmacy to manage the TPN and sodium. 8. Appreciate Dr Jacinto and Dr Patino consultation and help. 9. Anticipate going home in 2-3 days. f/u at cancer center next week. Clinical Quality Measures DVT/VTE Risk/Contraindication: Risk Factor Score Per Nursin RFS Level Per Nursing on Admit: 4+=Very High HUY STONE MD Apr 30, 2019 09:51
--- NOTE | 2019-04-30 10:22 | NUR ---
RECEIVED FROM ICU, REPORT FROM KAL JIMÉNEZ, PATIENT ALERT, DENIES PAIN OR SOB, IV SITE WITHOUT REDNESS OR SWELLING RIGHT [place], FAMILY AT BEDSIDE. CALL LIGHT WITHIN REACH
--- NOTE | 2019-04-30 10:26 | NUR ---
1020 PT TRANSFERRED TO ROOM 423 VIA W/C ACCOMPANIED BY ICU STAFF AND FAMILY. ALL PERSONAL BELONGINGS SENT WITH PT. REPORT GIVEN TO ROJAS JIMÉNEZ PRIOR TO TRANSFER.
--- NOTE | 2019-04-30 10:53 | Oncology History & Physical ---
Visit Information Visit Information Date of Admission Apr 28, 2019 at 21:59 Attending Physician Mo Stone MD Admitting Physician Rodrigue Orellana DO Chief Complaint Neutropenic fever, hypotension/possible early sepsis, hemodynamic unstable Interval History Ms. Miller is a 59 year old white female with metastatic breast cancer to bone and peritoneal carcinomatosis. She was initially admitted on 04/18/2019 due to intractable nausea vomiting after one dose of oral 5FU chemotherapy. Her nausea vomiting had no improvement despite of stopping chemo and giving her IV anti emetics because the underlie cause of the nausea vomiting was due to the peritoneal carcinomatosis. The treatment is the chemotherapy. She then transferred to swing bed for the IVF and IV nutrition support as well as IV antiemetics and pain meds. She received a different chemo Taxotere on 04-22-2019 a nd stayed stable for about 3 days. She then developed neutropenia and worsening of anemia on 04-28-19 due to the chemo. On the same night, she spike fever and became hypotensive and tachycardia. She was transferred from the swing bed to ICU. CT scan showed showed small bowel obstruction. UA showed UTI. Please also see my 04-28-2019, and 04-30-2019 progress notes for details I consulted the patient on: 04-28-2019 Time Seen by Provider: 20:42 Review of Systems Constitutional: chills, fever, malaise, weakness Respiratory: no symptoms reported Cardiovascular: palpitations Gastrointestinal: abdominal pain (LUQ), diarrhea, nausea, vomiting Health Status Allergies Coded Allergies: morphine (Verified Allergy, Intermediate, Itching, 04/18/19) aspirin (Verified Allergy, Unknown, 01/13/18) prochlorperazine (Verified Allergy, Unknown, 01/13/18) Home Medications Acetaminophen (Tylenol Extra Strength) 500 Mg Tablet, 500 MG PO Q6H PRN for PAIN-MILD (1-4), (Reported) Amlodipine Besylate (Amlodipine Besylate) 5 Mg Tablet, 5 MG PO DAILY, (Reported) Cholecalciferol (Vitamin D3) (Vitamin D3) 5,000 Unit Tab.rapdis, 10,000-15,000 UNIT PO DAILY, (Reported) TAKES 10,000 TO 15,000 UNITS DAILY Dextroamphetamine/Amphetamine (Dextroamp-Amphet ER 30 mg Cap) 30 Mg Cap.er.24h, 30 MG PO DAILY, (Reported) Diclofenac Sodium (Diclofenac Sodium) 100 Gm Gel..gram., 1 APPFUL TD Q6H, (Reported) APPLY TO THE TOES Diphenhydramine HCl (Benadryl) 25 Mg Capsule, 50 MG PO Q4H PRN for ALLERGY SYMPTOMS, (Reported) Fluoxetine HCl (Fluoxetine HCl) 40 Mg Capsule, 40 MG PO DAILY, (Reported) TAKES A 40MG AND A 20MG DAILY TO EQUAL 60MG Fluoxetine HCl (Fluoxetine HCl) 20 Mg Capsule, 20 MG PO DAILY, (Reported) TAKES 20MG AND 40 MG TO EQUAL 60MG DAILY Gabapentin (Gabapentin) 300 Mg Capsule, 300 MG PO HS, (Reported) Ibuprofen (Ibuprofen) 200 Mg Tablet, 400 MG PO Q6H PRN for PAIN-MILD (1-4), (Reported) Lactobacillus Combo No.10 (Probiotic) 1 Each Capsule, 1 EACH PO DAILY, (Reported) Levothyroxine Sodium (Levothyroxine Sodium) 25 Mcg Tablet, 25 MCG PO DAILY, (Reported) Magnesium Oxide (Magnesium) 400 Mg Tablet, 400 MG PO DAILY, (Reported) Multivitamin/Iron/Folic Acid (Multi-Day Plus Iron Tablet) 1 Each Tablet, 1 EACH PO DAILY, (Reported) [place]-3/Dha/Epa/Fish Oil (Fish Oil 1,000 mg Softgel) 1 Each Capsule, 2 EACH PO DAILY, (Reported) Omeprazole (Omeprazole) 40 Mg Capsule.dr, 40 MG PO HS, (Reported) Ondansetron HCl (Ondansetron HCl) 4 Mg Tablet, 4 MG PO DAILY PRN for NAUSEA/VOMITING-1ST LINE, (Reported) Oxycodone HCl/Acetaminophen (Oxycodone-Acetaminophen 5-325) 1 Each Tablet, 1 TAB PO HS PRN for PAIN-MODERATE (5-7), (Reported) Phytonadione (Vitamin K) 100 Mcg Tablet, 100 MCG PO DAILY, (Reported) Pseudoephedrine HCl (Sudafed) 30 Mg Tablet, 30 MG PO Q4H PRN for CONGESTION, (Reported) Vitamin B Complex (Vitamin B Complex) 1 Each Capsule, 1 EACH PO DAILY, (Reported) Zolpidem Tartrate (Zolpidem Tartrate ER) 12.5 Mg Tab.mphase, 12.5 MG PO HS, (Reported) [id number]-[id number] Hx Patient Social History 2nd Hand Smoke Exposure: No Recent Foreign Travel: No Contact w/other who traveled: No Recent Hopitalizations: No Family Medical History Significant Family History: No Pertinent Family Hx Data Review Labs Laboratory Tests 04/30/19 03:32 Laboratory Tests 04/29/19 02:20: Urine Protein 1+H, Urine Bacteria MODERATEH 04/29/19 03:06: White Blood Count 1.5L, Red Blood Count 2.89L, Hemoglobin 7.2L, Hematocrit 22L, Mean Corpuscular Volume 77L, Red Cell Distribution Width 17.6H, Monocytes (%) (Auto) 27H, Neutrophils # (Auto) 0.8L, Lymphocytes # (Auto) 0.3L, Sodium Level 123*L, Carbon Dioxide Level 16L, Blood Urea Nitrogen 28H, Glucose Level 138H, Calcium Level 7.6L, Total Protein 5.4L, Albumin 2.9L 04/30/19 03:32: Red Blood Count 3.42L, Hemoglobin 8.7#L, Hematocrit 27L, Mean Corpuscular Volume 79L, Red Cell Distribution Width 17.6H, Monocytes (%) (Auto) 18H, Lymphocytes # (Auto) 0.6L, Sodium Level 131L, Carbon Dioxide Level 18L, Blood Urea Nitrogen 23H, Glucose Level 136H, Calcium Level 7.9L, Total Protein 5.4L, Albumin 2.7L, Lymphocytes (%) (Auto) 11L, Phosphorus Level 2.2L, Magnesium Level 2.5H Radiology NAME: SUZIE MILLER [facility] REC#: [id number] PT STATUS: ADM IN : 1960 PHYSICIAN: MO STONE MD ADMIT DATE: 04/21/19/ Draft Date of Exam:04/28/19 CT ANGIO CHEST/ABD W & W/O EXAMINATION: CTA of the chest and abdomen with and without contrast. INDICATION: Breast cancer, nausea and vomiting Contiguous axial sections were taken through the chest and abdomen prior to the administration of intravenous contrast. Subsequent additional images were obtained after intravenous contrast was administered. Sagittal coronal reconstructive images and MIP images of the aorta and its branches were performed as well. The previous CT abdomen/pelvis exam of 04/02/2019 noted ascites and raise the question of peritoneal carcinomatosis. There is also obstruction of the left collecting system. On this study the amount of ascites has increased somewhat. The depth of fluid about the right lobe of the liver now measures 2.3 cm as opposed to 0.7 cm on the prior exam. There still appears to be obstruction of the left collecting system although there is still no sign of obstructive calculus. In the interval since the previous exam numerous dilated fluid-filled segments of small bowel have developed. This appearance does suggest a small bowel obstruction. The transition point is not visualized as the pelvis was not included on this study. The solid organs of the abdomen and pelvis are essentially no different than on the prior exam. The stomach remains distended by fluid. There is also fluid extending into the esophagus. The images through the thorax show that the pulmonary arteries are well-opacified. There is no defect within the pulmonary arteries to indicate a pulmonary embolus. The aorta is not abnormally dilated and there is no sign of a dissection. Heart size is within normal limits. The lungs are generally clear although mild atelectasis/infiltrate has developed in each lung base. There is no mediastinal or hilar adenopathy. The thyroid gland where visualized is unremarkable. There is no obvious breast mass. The bone windows again show extensive metastatic skeletal disease. IMPRESSION: 1. The appearance of the abdomen has worsened since the prior exam as the ascites has increased. There also now appears to be a small bowel obstruction. Either a complete CT abdomen/pelvis exam or a contrast small bowel exam would be recommended for further study. 2. There is no evidence for pulmonary metastases or for a dissection. There is mild atelectasis/infiltrate in both lung bases. 3. There is persistent obstruction of the left collecting system. 4. The stomach is distended by fluid and there is fluid extending through the esophagus. 5. There is extensive metastatic skeletal disease. Dictated on workstation # [id number] Dict: 04/29/19 [id number] Trans: 04/29/19 0857 [facility] [id number] Interpreted by: DAISY PARRISH MD Electronically signed by: Physical Exam Vital Signs Vital Signs - First Documented 04/28/19 22:00 Pulse 112 Resp 28 B/P (MAP) 101/66 (78) Pulse Ox 94 O2 Delivery Room Air Capillary Refill : Height, Weight, BMI Height: '" Weight: lbs. oz. kg; 27.33 BMI Method: General Appearance: Severe Distress, Other (lethargic) HEENT: PERRL/EOMI Neck: Non Tender, Supple Respiratory: No Accessory Muscle Use, No Respiratory Distress Cardiovascular: Regular Rate, Rhythm, Tachycardia Gastrointestinal: Soft, Distended, Tenderness Neurologic/Psychiatric: Alert, Oriented x3 Impression & Plan Impression & Plan IMP: 1. Metastatic breast cancer with extensive bone and peritoneal metastasis/carcinomatosis. Day 7 post chemo Taxotere 2. Neutropenic fever 3. Peritoneal carcinomatosis with ascites and small bowel obstruction most likely from the ileum bowel of the peritoneal cancer disease and/or chemo. No perforation. Nausea and vomiting. Diarrhea started after chemotherapy 4. Left hydronephrosis due to obstruction. NO visible stone per CT scan. Pending urology evaluation. 5 UA showed UTI, 6. Anemia, 7. Hyponatremia, 8. Pt is full code at this point. Plan: 1. Admit to ICU 2. Continue IV antiemetics, Zofran, Decadron, Protonix, Pepcid 3. NPO bowel rest except small sip water to relieve dry mouth. Hold off oral medicine today. 4. Continue IV antibiotics and f/u UA culture and sensitivities 5. Pharmacy to manage the TPN and sodium. 6. I would NOT give neupogen to her neutropenia due to her extensive bone mets. Diagnosis Admission Status: Inpatient Order (span 2 midnights) Reason for Inpatient Admission: neutropenic fever, hypotensive/possible early sepsis, UTI, breast cancer post chemo MO STONE MD Apr 30, 2019 10:53
[2019-04-30] MEDS ORDERED: SODIUM PHOSPHATE INJ 40 MM in NS (IVPB) 250 ML IV ONE (11:41)
--- NOTE | 2019-04-30 12:53 | Progress Note - Surgery ---
[facility] 04/30/19 1253: Subjective Date Seen by a Provider: Apr 30, 2019 Time Seen by a Provider: 11:56 Subjective/Events-last exam Pt feeling better today. Reports improved distension. Denies any abd pain, N/V. Reports passing gas and having BM. Review of Systems General: No Chills, No Fatigue Pulmonary: No Dyspnea, No Cough Cardiovascular: No: Chest Pain, Palpitations Gastrointestinal: Other (improving distension); No: Nausea, Vomiting, Diarrhea, Constipation Objective Exam Vital Signs Date Time Temp Pulse Resp B/P (MAP) Pulse Ox O2 Delivery O2 Flow Rate FiO2 04/30/19 12:00 36.0 81 20 119/74 (89) 96 Room Air 04/30/19 11:39 97 Room Air 04/30/19 10:30 36.6 90 20 116/89 (98) 97 Room Air 04/30/19 08:00 92 14 116/70 (85) 97 Room Air 04/30/19 07:45 95 Room Air 04/30/19 07:20 36.9 04/30/19 07:00 80 04/30/19 06:00 86 15 102/84 (90) 96 Room Air 04/30/19 05:00 81 22 109/67 (81) 97 Room Air 04/30/19 04:00 80 15 110/77 (88) 98 Room Air 04/30/19 04:00 94 Room Air 04/30/19 04:00 36.2 04/30/19 03:00 79 13 120/79 (93) 97 Room Air 04/30/19 02:00 81 18 120/74 (89) 95 Room Air 04/30/19 01:00 82 20 112/72 (85) 93 Room Air 04/30/19 01:00 83 04/30/19 00:00 94 Room Air 04/30/19 00:00 35.7 04/30/19 00:00 82 21 105/65 (78) 95 Room Air 04/29/19 23:00 80 16 98/62 (74) 95 Room Air 04/29/19 22:00 87 25 105/64 (78) 95 Room Air 04/29/19 21:00 85 17 107/70 (82) 95 Room Air 04/29/19 20:00 89 28 112/72 (85) 98 Room Air 04/29/19 20:00 94 Room Air 04/29/19 19:17 36.7 04/29/19 19:00 83 17 118/76 (90) 96 Room Air 04/29/19 19:00 84 04/29/19 18:00 87 15 105/61 (76) 96 Room Air 04/29/19 17:04 36.8 82 14 114/73 96 Room Air 04/29/19 17:00 81 18 114/73 (87) 96 Room Air 04/29/19 16:00 87 15 102/71 (81) 98 Room Air 04/29/19 16:00 94 Room Air 04/29/19 15:32 36.9 04/29/19 15:20 36.4 91 16 102/64 98 Room Air 04/29/19 15:05 36.3 104 20 105/68 98 Room Air 04/29/19 15:00 93 17 105/64 (78) 96 Room Air 04/29/19 14:00 96 33 124/92 (103) 94 Room Air 04/29/19 13:37 36.3 93 16 111/69 Room Air 04/29/19 13:00 95 19 114/70 (85) 95 Room Air I & O 04/30/19 07:00 Intake Total 625 ml Output Total 1750 ml Balance -1125 ml Capillary Refill : General Appearance: No Apparent Distress, WD/WN, Severe Distress, Other (lethargic) HEENT: PERRL/EOMI Neck: Non Tender, Supple Respiratory: No Accessory Muscle Use, No Respiratory Distress Cardiovascular: Regular Rate, Rhythm, Tachycardia Gastrointestinal: soft, distended (mild, fluid wave, improved) Extremity: Non Tender, No Calf Tenderness, No Pedal Edema Neurologic/Psychiatric: Alert, Oriented x3 Results Lab Laboratory Tests 04/30/19 03:32: White Blood Count 5.6, Red Blood Count 3.42L, Hemoglobin 8.7#L, Hematocrit 27L, Mean Corpuscular Volume 79L, Mean Corpuscular Hemoglobin 25, Mean Corpuscular Hemoglobin Concent 32, Red Cell Distribution Width 17.6H, Platelet Count 301, Mean Platelet Volume 9.4, Neutrophils (%) (Auto) 71, Lymphocytes (%) (Auto) 11L, Monocytes (%) (Auto) 18H, Eosinophils (%) (Auto) 0, Basophils (%) (Auto) 0, Neutrophils # (Auto) 4.0, Lymphocytes # (Auto) 0.6L, Monocytes # (Auto) 1.0, Eosinophils # (Auto) 0.0, Basophils # (Auto) 0.0, Sodium Level 131L, Potassium Level 4.3, Chloride Level 104, Carbon Dioxide Level 18L, Anion Gap 9, Blood Urea Nitrogen 23H, Creatinine 0.71, Estimat Glomerular Filtration Rate > 60, BUN/Creatinine Ratio 32, Glucose Level 136H, Calcium Level 7.9L, Corrected Calcium 8.9, Phosphorus Level 2.2L, Magnesium Level 2.5H, Total Bilirubin 0.3, Aspartate Amino Transf (AST/SGOT) 22, Alanine Aminotransferase (ALT/SGPT) 21, Alkaline Phosphatase 64, Total Protein 5.4L, Albumin 2.7L 04/30/19 12:06: Lab Scanned Report Transfusion Reaction Form Microbiology 04/29/19 Urine Culture - Preliminary, Resulted Gram Pos Mixed Bacterial Lori Enterococcus faecium 04/28/19 MRSA Screen - Final, Complete MRSA not isolated Assessment/Plan Assessment/Plan Assessment/Plan Metastatic breast cancer with mets to bone and peritoneal carcinomatosis Diarrhea Microcytic Anemia Hyponatremia Hydronephrosis of left kidney Patient passing flatus and having stools. No abdominal pain. Distension improving Conservative measures at this time, no surgical intervention May advance to clear liquids tomorrow, if deemed appropriate by oncology. Port intact Clinical Quality Measures DVT/VTE Risk/Contraindication: Risk Factor Score Per Nursin RFS Level Per Nursing on Admit: 4+=Very High NICKIE PATINO DO 05/02/19 2017: Subjective Subjective/Events-last exam Feeling better today. Abdomen no pain. No nausea or vomiting. Having bowel function. Denies n/v fever sweats chills shortness of breath or chest pain. Objective Exam General Appearance: No Apparent Distress, WD/WN HEENT: PERRL/EOMI Neck: Non Tender, Supple Respiratory: Chest Non Tender, No Accessory Muscle Use, No Respiratory Distress Cardiovascular: Tachycardia Gastrointestinal: soft, distended (minimal fluid wave) Extremity: Non Tender, No Calf Tenderness Neurologic/Psychiatric: Alert, Oriented x3 Skin: Normal Color, Warm/Dry Lymphatic: No Adenopathy Assessment/Plan Assessment/Plan Assessment/Plan Metastatic breast cancer with mets to bone and peritoneal carcinomatosis Diarrhea Microcytic Anemia Hyponatremia Hydronephrosis of left kidney do not feel she has a bowel obstruction, likely due to ascites/carcinomatosis will drain abdomen when she is uncomfortable, we discussed possibly having pleur-x drain if has to have multiple repeated paracentesis will see Patient Friday, if still here, if needed before that please call. Supervisory-Addendum Brief Verification & Attestation Participated in pt care: history, MDM, physical Personally performed: exam, history, MDM, supervision of care Care discussed with: Medical Student Procedures: n/a Results interpretation: Verified all documentation Verification and Attestation of Medical Student E/M Service A medical student performed and documented this service in my presence. I reviewed and verified all information documented by the medical student and made modifications to such information, when appropriate. I personally performed the physical exam and medical decision making. Nickie Patino, Apr 30, 2019,20:17 [facility] Apr 30, 2019 12:53 NICKIE PATINO DO May 02, 2019 20:17
--- NOTE | 2019-04-30 13:54 | NUR ---
Follow up visit: pt shared she is reflecting upon the changes in her life, engaging in deep spiritual reflection about ways personal pride may have intertwined with her sense of calling. She shared that she is sifting through these inner workings and finding a deeper sense of peace by owning her ultimate identity in [place] and focussing her attention on her family.
[2019-04-30] MEDS ORDERED: NS 100 ML (IVPB) BAG IV ONE (15:30)
[2019-04-30] MEDS ORDERED: HOLD METFORMIN - RECEIVED CONTRAST 20 ML VIAL IV SCH (15:30)
[2019-04-30] MEDS ORDERED: IOHEXOL 350 MG/ML 100 ML (OMNIPAQUE 350) VIAL IV ONE (15:30)
[2019-04-30] MEDS: [UNRECOGNIZED DRUG - OTHER] IV SCH ×3 (15:54)
--- NOTE | 2019-04-30 16:16 | Diagnostic Imaging Report ---
EXAMINATION: CT Abdomen Pelvis with and without intravenous contrast. TECHNIQUE: Precontrast acquisitions were acquired through the abdomen and pelvis. Multiple contiguous axial images were obtained through the abdomen and pelvis after the administration of intravenous contrast. All CT scans use one or more of the following dose optimizing techniques: automated exposure control, MA and/or KvP adjustment based on a patient size and exam type, or iterative reconstruction. HISTORY: Follow-up small bowel obstruction. History of breast cancer with peritoneal carcinomatosis. COMPARISON: 04/28/2019. FINDINGS: The heart is unremarkable. The included lung bases demonstrate minimal left basilar atelectasis. There is continued distention of loops of large and small bowel throughout the abdomen. There is marked bowel wall thickening involving the majority of the colon. Liquid stool is seen throughout the colon. No focal transition point is seen. No free air. Stable appearance of numerous hypoattenuating foci throughout the liver. The portal vein is patent. The left kidney is asymmetrically smaller than the right. [id number] left-sided hydroureteronephrosis is noted. No hydronephrosis is seen on the right. The urinary bladder is nondistended. The spleen, pancreas, and adrenal glands have a normal appearance. There is a moderate amount of ascites in the abdomen and pelvis with thickening of the peritoneal lining. Diffuse osseous metastatic disease is again seen in the included osseous structures. No acute fracture or dislocation is seen. IMPRESSION: 1. Persistent fluid-filled dilated loops of large and small bowel throughout the abdomen with generalized bowel wall thickening and edema involving the majority of the colon. These findings are favored to represent ileus and/or colitis given the lack of transition point. No free air. Recommend continued follow-up. 2. Moderate amount of ascites with thickening of the peritoneal lining, representing the patient's history of peritoneal carcinomatosis secondary to breast cancer. 3. Diffuse osseous metastatic disease. No acute fracture or dislocation. 4. Continued [id number] left-sided hydroureteronephrosis. Dictated by: Dictated on workstation # [id number]
[2019-04-30] MEDS: GABAPENTIN 300 MG (NEURONTIN) CAP PO SCH (18:45)
[2019-04-30] MEDS ORDERED: CEFEPIME 2 GM (MAXIPIME) VIAL ONE (20:21)
[2019-04-30] MEDS ORDERED: WATER (STERILE) FOR INJECTION 20 ML ONE (20:21)
[2019-05-01] VITALS: BP 116/76
[2019-05-01] MEDS: SODIUM CHLORIDE IV SCH ×9 (01:37→23:09)
[2019-05-01] MEDS: LYTES IV SCH ×9 (01:37→23:09)
[2019-05-01] MEDS: [UNRECOGNIZED DRUG - OTHER] IV SCH ×9 (01:37→23:09)
[2019-05-01] MEDS: SODIUM ACETATE IV SCH ×9 (01:37→23:09)
[2019-05-01 04:00] VITALS: BP 119/73
[2019-05-01] MEDS: LEVOTHYROXINE 25 MCG (LEVOTHROID) TAB PO SCH (06:58)
[2019-05-01] MEDS: KCL 20 MEQ TAB (K-DUR) PO SCH (06:58)
[2019-05-01] MEDS: SUCRALFATE 1 GM (CARAFATE) TAB PO SCH ×4 (07:22→22:05)
[2019-05-01 07:34] VITALS: BP 110/72
[2019-05-01] MEDS ORDERED: CEFEPIME 2 GM (MAXIPIME) VIAL ONE (09:08)
[2019-05-01] MEDS: FAMOTIDINE 20MG/2ML IV (PEPCID) IVP SCH ×2 (09:13→20:12)
[2019-05-01] MEDS: DEXAMETHASONE 4 MG/ML SDV (DECADRON) IV SCH (09:15)
[2019-05-01] MEDS: PANTOPRAZOLE 40 MG (PROTONIX) VIAL IV SCH ×2 (09:16→20:12)
[2019-05-01] MEDS: FLUoxetine HCL 20 MG (PROzac) CAP PO SCH (09:18)
[2019-05-01] MEDS: CEFEPIME INJECTION 2,000 MG in WATER (STERILE) FOR INJECTION 20 ML IV SCH (09:21)
--- NOTE | 2019-05-01 09:40 | NUR ---
PHENERGAN 25MG IV FOR NAUSEA.
[2019-05-01] MEDS: PROMETHAZINE INJ 25 MG/ML (PHENERGAN) AMP IVP PRN (09:41)
--- NOTE | 2019-05-01 10:22 | Oncology Progress Note ---
Subjective Date Seen by a Provider: May 01, 2019 Time Seen by a Provider: 10:21 Subjective/Events-last exam This note is a re-do note due to the computer issue. Pt is feeling better today. Less nausea. No vomiting No fever Data Review Labs Laboratory Tests 05/01/19 14:00 Laboratory Tests 04/30/19 03:32: Red Blood Count 3.42L, Hemoglobin 8.7#L, Hematocrit 27L, Mean Corpuscular Volume 79L, Red Cell Distribution Width 17.6H, Lymphocytes (%) (Auto) 11L, Monocytes (%) (Auto) 18H, Lymphocytes # (Auto) 0.6L, Sodium Level 131L, Carbon Dioxide Level 18L, Blood Urea Nitrogen 23H, Glucose Level 136H, Calcium Level 7.9L, Phosphorus Level 2.2L, Magnesium Level 2.5H, Total Protein 5.4L, Albumin 2.7L 04/30/19 12:06: 05/01/19 14:00: Red Blood Count 3.27L, Hemoglobin 8.5L, Hematocrit 26L, Red Cell Distribution Width 18.1H, Lymphocytes (%) (Auto) 8L, Lymphocytes # (Auto) 0.9L, Sodium Level 134L, Carbon Dioxide Level 20L, Blood Urea Nitrogen 23H, Glucose Level 112H, Calcium Level 7.8L, Neutrophils (%) (Auto) 83H, Neutrophils # (Auto) 8.6H Radiology NAME: SUZIE [facility] REC#: [id number] PT STATUS: ADM IN : 1960 PHYSICIAN: HUY STONE MD ADMIT DATE: 04/21/19 Draft Date of Exam:04/28/19 CT ANGIO CHEST/ABD W & W/O EXAMINATION: CTA of the chest and abdomen with and without contrast. INDICATION: Breast cancer, nausea and vomiting Contiguous axial sections were taken through the chest and abdomen prior to the administration of intravenous contrast. Subsequent additional images were obtained after intravenous contrast was administered. Sagittal coronal reconstructive images and MIP images of the aorta and its branches were performed as well. The previous CT abdomen/pelvis exam of 04/02/2019 noted ascites and raise the question of peritoneal carcinomatosis. There is also obstruction of the left collecting system. On this study the amount of ascites has increased somewhat. The depth of fluid about the right lobe of the liver now measures 2.3 cm as opposed to 0.7 cm on the prior exam. There still appears to be obstruction of the left collecting system although there is still no sign of obstructive calculus. In the interval since the previous exam numerous dilated fluid-filled segments of small bowel have developed. This appearance does suggest a small bowel obstruction. The transition point is not visualized as the pelvis was not included on this study. The solid organs of the abdomen and pelvis are essentially no different than on the prior exam. The stomach remains distended by fluid. There is also fluid extending into the esophagus. The images through the thorax show that the pulmonary arteries are well-opacified. There is no defect within the pulmonary arteries to indicate a pulmonary embolus. The aorta is not abnormally dilated and there is no sign of a dissection. Heart size is within normal limits. The lungs are generally clear although mild atelectasis/infiltrate has developed in each lung base. There is no mediastinal or hilar adenopathy. The thyroid gland where visualized is unremarkable. There is no obvious breast mass. The bone windows again show extensive metastatic skeletal disease. IMPRESSION: 1. The appearance of the abdomen has worsened since the prior exam as the ascites has increased. There also now appears to be a small bowel obstruction. Either a complete CT abdomen/pelvis exam or a contrast small bowel exam would be recommended for further study. 2. There is no evidence for pulmonary metastases or for a dissection. There is mild atelectasis/infiltrate in both lung bases. 3. There is persistent obstruction of the left collecting system. 4. The stomach is distended by fluid and there is fluid extending through the esophagus. 5. There is extensive metastatic skeletal disease. Dictated on workstation # [id number] Dict: 04/29/19 0748 Trans: 04/29/19 0857 [facility] [id number] Interpreted by: DAISY PARRISH MD Electronically signed by: Physical Exam Vital Signs Vital Signs - First Documented 04/28/19 22:00 Pulse 112 Resp 28 B/P (MAP) 101/66 (78) Pulse Ox 94 O2 Delivery Room Air Capillary Refill : Height, Weight, BMI Height: '" Weight: lbs. oz. kg; 27.33 BMI Method: General Appearance: No Apparent Distress Cardiovascular: Regular Rate, Rhythm Gastrointestinal: Soft, Distended, Tenderness Extremity: Non Tender, No Calf Tenderness, No Pedal Edema Neurologic/Psychiatric: Alert, Oriented x3 Impression & Plan Impression & Plan IMP: 1. Metastatic breast cancer with extensive bone and peritoneal metastasis/carcinomatosis. Day 8 post chemo Taxotere 2. Neutropenic fever, resolved 3. Peritoneal carcinomatosis with ascites and small bowel obstruction most likely from the ileum bowel of the peritoneal cancer disease and/or chemo. No perforation. Nausea and vomiting. Diarrhea started after chemotherapy 4. Left hydronephrosis due to obstruction. NO visible stone per CT scan. Pending urology evaluation. 5 UA showed UTI, 6. Anemia, 7. Hyponatremia, 8. Pt is full code at this point. Plan: 1. Wean off steroid. 2. Continue IV antiemetics, Zofran, Decadron, Protonix, Pepcid 3. NPO bowel rest except small sip water to relieve dry mouth. Hold off oral medicine today. 4. Continue IV antibiotics and f/u UA culture and sensitivities 5. Pharmacy to manage the TPN and sodium. 6. Anticipate to stay for 5-6 more days. Clinical Quality Measures DVT/VTE Risk/Contraindication: Risk Factor Score Per Nursin RFS Level Per Nursing on Admit: 4+=Very High HUY STONE MD May 01, 2019 10:22
[2019-05-01 11:19] VITALS: BP 120/75
[2019-05-01 14:10] LABS: BASOPHILS % (AUTO) 0 % (0-10); EOSINOPHILS % (AUTO) 0 % (0-10); HEMATOCRIT 26 % (35-52); HEMOGLOBIN 8.5 G/DL (11.5-16.0); LYMPHOCYTES # (AUTO) 0.9 X 10^3 (1.0-4.0); LYMPHOCYTES % (AUTO) 8 % (12-44); MEAN CORPUSCULAR HEMOGLOBIN 26 PG (25-34); MEAN CORPUSCULAR HGB CONC 32 G/DL (32-36); MEAN CORPUSCULAR VOLUME 81 FL (80-99); MEAN PLATELET VOLUME 9.8 FL (7.4-10.4); MONOCYTES # (AUTO) 0.9 X 10^3 (0.0-1.0); MONOCYTES % (AUTO) 8 % (0-12); NEUTROPHILS # (AUTO) 8.6 X 10^3 (1.8-7.8); NEUTROPHILS % (AUTO) 83 % (42-75); PLATELET COUNT 310 10^3/uL (130-400); RED CELL DISTRIBUTION WIDTH 18.1 % (10.0-14.5); WHITE BLOOD COUNT 10.3 10^3/uL (4.3-11.0)
[2019-05-01 14:26] LABS: BUN/CREATININE RATIO 37; CALCIUM 7.8 MG/DL (8.5-10.1); CARBON DIOXIDE 20 MMOL/L (21-32); CHLORIDE 105 MMOL/L (98-107); CREATININE SERUM 0.63 MG/DL (0.60-1.30); GFR ESTIMATED > 60; GLUCOSE 112 MG/DL (70-105); POTASSIUM 4.5 MMOL/L (3.6-5.0); SODIUM 134 MMOL/L (135-145)
[2019-05-01 15:02] LABS: ANISOCYTOSIS MODERATE; BAND NEUTROPHILS 19 %; BASOPHILS % (MANUAL) 0 %; EOSINOPHILS % (MANUAL) 0 %; LYMPHOCYTES % (MANUAL) 8 %; METAMYELOCYTES % 2 %; MONOCYTES % (MANUAL) 8 %; MYELOCYTES % 4 %; NEUTROPHILS % (MANUAL) 59 %; POLYCHROMASIA SLIGHT
[2019-05-01 16:00] VITALS: BP 113/71
[2019-05-01] MEDS: GABAPENTIN 300 MG (NEURONTIN) CAP PO SCH (18:37)
[2019-05-02] VITALS: BP 119/72
[2019-05-02 04:00] VITALS: BP 119/72
[2019-05-02] MEDS: KCL 20 MEQ TAB (K-DUR) PO SCH (06:44)
[2019-05-02] MEDS: LEVOTHYROXINE 25 MCG (LEVOTHROID) TAB PO SCH (06:44)
[2019-05-02] MEDS: SUCRALFATE 1 GM (CARAFATE) TAB PO SCH ×4 (06:44→23:39)
[2019-05-02 08:00] VITALS: BP 117/75
[2019-05-02] MEDS: PANTOPRAZOLE 40 MG (PROTONIX) VIAL IV SCH ×2 (09:20→19:56)
[2019-05-02] MEDS: DEXAMETHASONE 4 MG/ML SDV (DECADRON) IV SCH (09:20)
[2019-05-02] MEDS: FAMOTIDINE 20MG/2ML IV (PEPCID) IVP SCH ×2 (09:21→19:56)
[2019-05-02] MEDS: FLUoxetine HCL 20 MG (PROzac) CAP PO SCH (09:21)
[2019-05-02] MEDS: LYTES IV SCH ×6 (09:21→19:56)
[2019-05-02] MEDS: [UNRECOGNIZED DRUG - OTHER] IV SCH ×6 (09:21→19:56)
[2019-05-02] MEDS: SODIUM CHLORIDE IV SCH ×6 (09:21→19:56)
[2019-05-02] MEDS: SODIUM ACETATE IV SCH ×6 (09:21→19:56)
--- NOTE | 2019-05-02 10:44 | Oncology Progress Note ---
Subjective Date Seen by a Provider: May 02, 2019 Time Seen by a Provider: 10:43 Subjective/Events-last exam THIS NOTE IS a re-do note because of the computer problems. Pt is slowly improving. No vomiting No fever Less nausea Diarrhea 4-5 times Data Review Labs Laboratory Tests 05/03/19 06:03 Laboratory Tests 04/30/19 12:06: 05/01/19 14:00: Red Blood Count 3.27L, Hemoglobin 8.5L, Hematocrit 26L, Red Cell Distribution W idth 18.1H, Neutrophils (%) (Auto) 83H, Lymphocytes (%) (Auto) 8L, Neutrophils # (Auto) 8.6H, Lymphocytes # (Auto) 0.9L, Sodium Level 134L, Carbon Dioxide Level 20L, Blood Urea Nitrogen 23H, Glucose Level 112H, Calcium Level 7.8L 05/03/19 06:03: Red Blood Count 3.27L, Hemoglobin 8.4L, Hematocrit 27L, Red Cell Distribution Width 18.5H, Neutrophils (%) (Auto) 77H, Sodium Level 133L, Blood Urea Nitrogen 21H, Calcium Level 8.2L, Total Protein 5.0L, Albumin 2.5L Radiology NAME: SUZIE MILLER [facility] REC#: [id number] PT STATUS: ADM IN : 1960 PHYSICIAN: HUY STONE MD ADMIT DATE: 04/21/19 Draft Date of Exam:04/28/19 CT ANGIO CHEST/ABD W & W/O EXAMINATION: CTA of the chest and abdomen with and without contrast. INDICATION: Breast cancer, nausea and vomiting Contiguous axial sections were taken through the chest and abdomen prior to the administration of intravenous contrast. Subsequent additional images were obtained after intravenous contrast was administered. Sagittal coronal reconstructive images and MIP images of the aorta and its branches were performed as well. The previous CT abdomen/pelvis exam of 04/02/2019 noted ascites and raise the question of peritoneal carcinomatosis. There is also obstruction of the left collecting system. On this study the amount of ascites has increased somewhat. The depth of fluid about the right lobe of the liver now measures 2.3 cm as opposed to 0.7 cm on the prior exam. There still appears to be obstruction of the left collecting system although there is still no sign of obstructive calculus. In the interval since the previous exam numerous dilated fluid-filled segments of small bowel have developed. This appearance does suggest a small bowel obstruction. The transition point is not visualized as the pelvis was not included on this study. The solid organs of the abdomen and pelvis are essentially no different than on the prior exam. The stomach remains distended by fluid. There is also fluid extending into the esophagus. The images through the thorax show that the pulmonary arteries are well-opacified. There is no defect within the pulmonary arteries to indicate a pulmonary embolus. The aorta is not abnormally dilated and there is no sign of a dissection. Heart size is within normal limits. The lungs are generally clear although mild atelectasis/infiltrate has developed in each lung base. There is no mediastinal or hilar adenopathy. The thyroid gland where visualized is unremarkable. There is no obvious breast mass. The bone windows again show extensive metastatic skeletal disease. IMPRESSION: 1. The appearance of the abdomen has worsened since the prior exam as the ascites has increased. There also now appears to be a small bowel obstruction. Either a complete CT abdomen/pelvis exam or a contrast small bowel exam would be recommended for further study. 2. There is no evidence for pulmonary metastases or for a dissection. There is mild atelectasis/infiltrate in both lung bases. 3. There is persistent obstruction of the left collecting system. 4. The stomach is distended by fluid and there is fluid extending through the esophagus. 5. There is extensive metastatic skeletal disease. Dictated on workstation # [id number] Dict: 04/29/19 0748 Trans: 04/29/19 0857 [facility] [id number] Interpreted by: DAISY PARRISH MD Electronically signed by: Physical Exam Vital Signs Vital Signs - First Documented 04/28/19 22:00 Pulse 112 Resp 28 B/P (MAP) 101/66 (78) Pulse Ox 94 O2 Delivery Room Air Capillary Refill : Less Than 3 Seconds Height, Weight, BMI Height: '" Weight: lbs. oz. kg; 27.33 BMI Method: General Appearance: No Apparent Distress Respiratory: Chest Non Tender, No Accessory Muscle Use, No Respiratory Distress Cardiovascular: Regular Rate, Rhythm Gastrointestinal: Non Tender, Soft, Distended Extremity: Non Tender, No Calf Tenderness, No Pedal Edema Neurologic/Psychiatric: Alert, Oriented x3 Impression & Plan Impression & Plan IMP: 1. Metastatic breast cancer with extensive bone and peritoneal metastasis/carcinomatosis. Day 8 post chemo Taxotere 2. Neutropenic fever, resolved 3. Peritoneal carcinomatosis with ascites and small bowel obstruction most likely from the ileus bowel of the peritoneal cancer disease and/or chemo. No perforation. Nausea and vomiting. Diarrhea started after chemotherapy 4. Left hydronephrosis due to obstruction. NO visible stone per CT scan. Pending urology evaluation. 5 UA showed UTI, 6. Anemia, 7. Hyponatremia, 8. Pt is full code at this point. Plan: 1. Wean off steroid. 2. Continue IV antiemetics, Zofran, Decadron, Protonix, Pepcid 3. NPO bowel rest except small sip water to relieve dry mouth. Pt may have oral meds. 4. Continue IV antibiotics and f/u UA culture and sensitivities 5. Pharmacy to manage the TPN and sodium. Clinical Quality Measures DVT/VTE Risk/Contraindication: Risk Factor Score Per Nursin RFS Level Per Nursing on Admit: 4+=Very High HUY STONE MD May 02, 2019 10:43
[2019-05-02 16:27] VITALS: BP 120/76
[2019-05-02] MEDS: GABAPENTIN 300 MG (NEURONTIN) CAP PO SCH (18:20)
[2019-05-03] VITALS: BP 113/68
[2019-05-03] MEDS: SUCRALFATE 1 GM (CARAFATE) TAB PO SCH ×4 (05:48→20:07)
[2019-05-03] MEDS: LEVOTHYROXINE 25 MCG (LEVOTHROID) TAB PO SCH (06:00)
[2019-05-03] MEDS: SODIUM ACETATE IV SCH ×3 (06:00)
[2019-05-03] MEDS: LYTES IV SCH ×3 (06:00)
[2019-05-03] MEDS: SODIUM CHLORIDE IV SCH ×3 (06:00)
[2019-05-03] MEDS: [UNRECOGNIZED DRUG - OTHER] IV SCH ×3 (06:00)
[2019-05-03 06:15] LABS: BASOPHILS % (AUTO) 0 % (0-10); EOSINOPHILS % (AUTO) 0 % (0-10); HEMATOCRIT 27 % (35-52); HEMOGLOBIN 8.4 G/DL (11.5-16.0); LYMPHOCYTES # (AUTO) 1.4 X 10^3 (1.0-4.0); LYMPHOCYTES % (AUTO) 14 % (12-44); MEAN CORPUSCULAR HEMOGLOBIN 26 PG (25-34); MEAN CORPUSCULAR HGB CONC 32 G/DL (32-36); MEAN CORPUSCULAR VOLUME 82 FL (80-99); MEAN PLATELET VOLUME 9.3 FL (7.4-10.4); MONOCYTES # (AUTO) 0.9 X 10^3 (0.0-1.0); MONOCYTES % (AUTO) 9 % (0-12); NEUTROPHILS # (AUTO) 7.7 X 10^3 (1.8-7.8); NEUTROPHILS % (AUTO) 77 % (42-75); PLATELET COUNT 275 10^3/uL (130-400); RED CELL DISTRIBUTION WIDTH 18.5 % (10.0-14.5)
[2019-05-03 06:35] LABS: ALANINE AMINOTRANSFERASE 36 U/L (0-55); ALBUMIN 2.5 GM/DL (3.2-4.5); ALKALINE PHOSPHATASE 47 U/L (40-136); BILIRUBIN,TOTAL 0.2 MG/DL (0.1-1.0); BUN/CREATININE RATIO 35; CALCIUM 8.2 MG/DL (8.5-10.1); CARBON DIOXIDE 24 MMOL/L (21-32); CHLORIDE 101 MMOL/L (98-107); GFR ESTIMATED > 60; GLUCOSE 86 MG/DL (70-105); POTASSIUM 4.2 MMOL/L (3.6-5.0); SODIUM 133 MMOL/L (135-145)
[2019-05-03 08:00] VITALS: BP 110/69
--- NOTE | 2019-05-03 08:12 | Progress Note - Surgery ---
TOM MCPHERSON [facility] 05/03/19 0812: Subjective Date Seen by a Provider: May 03, 2019 Time Seen by a Provider: 08:07 Subjective/Events-last exam pt lying down in bed comfortably. reports passing gas and having BMs. Denies any abd pain, N/V, constipation, or SOB. Weaning off TPN per Dr. Gregory. Review of Systems General: No Chills, No Fatigue Pulmonary: No Dyspnea, No Cough Cardiovascular: No: Chest Pain, Palpitations Gastrointestinal: No: Nausea, Vomiting, Abdominal Pain, Diarrhea, Constipation Genitourinary: No Dysuria, No Frequency Objective Exam Vital Signs Date Time Temp Pulse Resp B/P (MAP) Pulse Ox O2 Delivery O2 Flow Rate FiO2 05/03/19 00:00 36.0 68 20 113/68 (83) 94 Room Air 05/02/19 19:30 Room Air 05/02/19 16:27 35.0 78 15 120/76 (91) 95 Room Air I & O 05/03/19 07:00 Intake Total 1457 ml Balance 1457 ml Capillary Refill : Less Than 3 Seconds General Appearance: No Apparent Distress, WD/WN HEENT: PERRL/EOMI Neck: Non Tender, Supple Respiratory: Chest Non Tender, No Accessory Muscle Use, No Respiratory Distress Cardiovascular: Tachycardia Gastrointestinal: soft, distended (minimal fluid wave); No guarding, No rebound, No tenderness Extremity: Non Tender, No Calf Tenderness Neurologic/Psychiatric: Alert, Oriented x3 Skin: Normal Color, Warm/Dry Lymphatic: No Adenopathy Results Lab Laboratory Tests 05/03/19 06:03: White Blood Count 10.0, Red Blood Count 3.27L, Hemoglobin 8.4L, Hematocrit 27L, Mean Corpuscular Volume 82, Mean Corpuscular Hemoglobin 26, Mean Corpuscular Hemoglobin Concent 32, Red Cell Distribution Width 18.5H, Platelet Count 275, Mean Platelet Volume 9.3, Neutrophils (%) (Auto) 77H, Lymphocytes (%) (Auto) 14, Monocytes (%) (Auto) 9, Eosinophils (%) (Auto) 0, Basophils (%) (Auto) 0, Fredi trophils # (Auto) 7.7, Lymphocytes # (Auto) 1.4, Monocytes # (Auto) 0.9, Eosinophils # (Auto) 0.0, Basophils # (Auto) 0.0, Sodium Level 133L, Potassium Level 4.2, Chloride Level 101, Carbon Dioxide Level 24, Anion Gap 8, Blood Urea Nitrogen 21H, Creatinine 0.60, Estimat Glomerular Filtration Rate > 60, BUN/Creatinine Ratio 35, Glucose Level 86, Calcium Level 8.2L, Corrected Calcium 9.4, Total Bilirubin 0.2, Aspartate Amino Transf (AST/SGOT) 27, Alanine Aminotransferase (ALT/SGPT) 36, Alkaline Phosphatase 47, Total Protein 5.0L, Albumin 2.5L Microbiology 04/29/19 Urine Culture - Final, Complete Gram Pos Mixed Bacterial Cintia Enterococcus faecium 04/28/19 MRSA Screen - Final, Complete MRSA not isolated Assessment/Plan Assessment/Plan Assessment/Plan Metastatic breast cancer with mets to bone and peritoneal carcinomatosis CT on 04/30 showed fluid-filled dilated loops of large and small bowel diffusely w/ no transition point, concerning for ileus and/or colitis Moderate amount of ascites on CT Microcytic Anemia Hyponatremia Hydronephrosis of left kidney UTI, Enterococcus faecium, mixed gram+ gut cintia will drain abdomen when she is uncomfortable, we discussed possibly having pleur-x drain if has to have multiple repeated paracentesis Ok from surgical stand-point to advance to dysphagia 1 or 2 diet, proceed if ok with Dr. Gregory Advance diet slowly Will continue to monitor labs Clinical Quality Measures DVT/VTE Risk/Contraindication: Risk Factor Score Per Nursin RFS Level Per Nursing on Admit: 4+=Very High NICKIE PATINO DO 05/03/191912: Subjective Subjective/Events-last exam having bowel function. no abd pain. tolerating liquids. denies n/v fever sweats chills shortness of breath or chest pain Objective Exam General Appearance: No Apparent Distress, WD/WN HEENT: PERRL/EOMI, Normal ENT Inspection Neck: Full Range of Motion, Non Tender, Supple Respiratory: Chest Non Tender, No Accessory Muscle Use, No Respiratory Distress Cardiovascular: Tachycardia Gastrointestinal: soft, distended (minimal fluid wave); No guarding, No rebound, No tenderness Extremity: Normal Capillary Refill, Non Tender, No Calf Tenderness Neurologic/Psychiatric: Alert, Oriented x3 Skin: Normal Color, Warm/Dry Lymphatic: No Adenopathy Assessment/Plan Assessment/Plan Assessment/Plan Metastatic breast cancer with mets to bone and peritoneal carcinomatosis CT on 04/30 showed fluid-filled dilated loops of large and small bowel diffusely w/ no transition point, concerning for ileus and/or colitis Moderate amount of ascites on CT Microcytic Anemia Hyponatremia Hydronephrosis of left kidney UTI, Enterococcus faecium, mixed gram+ gut cintia having bowel function, okay to advance diet as she tolerates will do paracentesis when patient is more uncomfortable from accumulation of fluid. no surgical intervention this time. Supervisory-Addendum Brief Verification & Attestation Participated in pt care: history, MDM, physical Personally performed: exam, history, MDM, supervision of care Care discussed with: Medical Student Procedures: n/a Results interpretation: Verified all documentation Verification and Attestation of Medical Student E/M Service A medical student performed and documented this service in my presence. I reviewed and verified all information documented by the medical student and made modifications to such information, when appropriate. I personally performed the physical exam and medical decision making. Nickie Patino, May 03, 2019,19:13 TOM MCPHERSON [facility] May 03, 2019 08:12 NICKIE APTINO DO May 03, 2019 19:13
[2019-05-03] MEDS: FLUoxetine HCL 20 MG (PROzac) CAP PO SCH (08:34)
[2019-05-03] MEDS: FAMOTIDINE 20MG/2ML IV (PEPCID) IVP SCH ×2 (08:35→20:07)
[2019-05-03] MEDS: PANTOPRAZOLE 40 MG (PROTONIX) VIAL IV SCH ×2 (08:35→20:07)
--- NOTE | 2019-05-03 09:28 | Oncology Progress Note ---
Subjective Date Seen by a Provider: May 03, 2019 Time Seen by a Provider: 09:27 Subjective/Events-last exam Pt is improving. Had 400ml of water per mouth over last 24 hrs without problem Diarrhea 2x over last 24 hrs No fever. No nausea vomiting over 24hrs. Developed skin rash over arms and legs since yesterday. Not itching. Not pain Blood culture on 04-28-2019, one out of two bottle grow Staph Coag neg on day 3 Data Review Labs Laboratory Tests 05/03/19 06:03 Laboratory Tests 04/30/19 12:06: 05/01/19 14:00: Red Blood Count 3.27L, Hemoglobin 8.5L, Hematocrit 26L, Red Cell Distribution Width 18.1H, Neutrophils (%) (Auto) 83H, Lymphocytes (%) (Auto) 8L, Neutrophils # (Auto) 8.6H, Lymphocytes # (Auto) 0.9L, Sodium Level 134L, Carbon Dioxide Level 20L, Blood Urea Nitrogen 23H, Glucose Level 112H, Calcium Level 7.8L 05/03/19 06:03: Red Blood Count 3.27L, Hemoglobin 8.4L, Hematocrit 27L, Red Cell Distribution Width 18.5H, Neutrophils (%) (Auto) 77H, Sodium Level 133L, Blood Urea Nitrogen 21H, Calcium Level 8.2L, Total Protein 5.0L, Albumin 2.5L Radiology NAME: SUZIE MILLER [facility] REC#: [id number] PT STATUS: ADM IN : 1960 PHYSICIAN: HUY STONE MD ADMIT DATE: 04/21/19 Draft Date of Exam:04/28/19 CT ANGIO CHEST/ABD W & W/O EXAMINATION: CTA of the chest and abdomen with and without contrast. INDICATION: Breast cancer, nausea and vomiting Contiguous axial sections were taken through the chest and abdomen prior to the administration of intravenous contrast. Subsequent additional images were obtained after intravenous contrast was administered. Sagittal coronal reconstructive images and MIP images of the aorta and its branches were performed as well. The previous CT abdomen/pelvis exam of 04/02/2019 noted ascites and raise the question of peritoneal carcinomatosis. There is also obstruction of the left collecting system. On this study the amount of ascites has increased somewhat. The depth of fluid about the right lobe of the liver now measures 2.3 cm as opposed to 0.7 cm on the prior exam. There still appears to be obstruction of the left collecting system although there is still no sign of obstructive calculus. In the interval since the previous exam numerous dilated fluid-filled segments of small bowel have developed. This appearance does suggest a small bowel obstruction. The transition point is not visualized as the pelvis was not included on this study. The solid organs of the abdomen and pelvis are essentially no different than on the prior exam. The stomach remains distended by fluid. There is also fluid extending into the esophagus. The images through the thorax show that the pulmonary arteries are well-opacified. There is no defect within the pulmonary arteries to indicate a pulmonary embolus. The aorta is not abnormally dilated and there is no sign of a dissection. Heart size is within normal limits. The lungs are generally clear although mild atelectasis/infiltrate has developed in each lung base. There is no mediastinal or hilar adenopathy. The thyroid gland where visualized is unremarkable. There is no obvious breast mass. The bone windows again show extensive metastatic skeletal disease. IMPRESSION: 1. The appearance of the abdomen has worsened since the prior exam as the ascites has increased. There also now appears to be a small bowel obstruction. Either a complete CT abdomen/pelvis exam or a contrast small bowel exam would be recommended for further study. 2. There is no evidence for pulmonary metastases or for a dissection. There is mild atelectasis/infiltrate in both lung bases. 3. There is persistent obstruction of the left collecting system. 4. The stomach is distended by fluid and there is fluid extending through the esophagus. 5. There is extensive metastatic skeletal disease. Dictated on workstation # [id number] Dict: 04/29/19 0748 Trans: 04/29/19 0857 [facility] [id number] Interpreted by: DAISY PARRISH MD Electronically signed by: Physical Exam Vital Signs Vital Signs - First Documented 04/28/19 22:00 Pulse 112 Resp 28 B/P (MAP) 101/66 (78) Pulse Ox 94 O2 Delivery Room Air Capillary Refill : Less Than 3 Seconds Height, Weight, BMI Height: '" Weight: lbs. oz. kg; 27.33 BMI Method: General Appearance: No Apparent Distress HEENT: PERRL/EOMI Neck: Non Tender, Supple Respiratory: Chest Non Tender, Lungs Clear, No Accessory Muscle Use, No Respiratory Distress Gastrointestinal: Non Tender, Soft, Distended Extremity: Non Tender, No Calf Tenderness, No Pedal Edema Neurologic/Psychiatric: Alert, Oriented x3 Impression & Plan Impression & Plan IMP: 1. Metastatic breast cancer with extensive bone and peritoneal metastasis/carcinomatosis. Day 9 post chemo Taxotere 2. Neutropenic fever, resolved. Blood culture 04/18/2019 one/2 bottles grew staph coag negative on day 3. Most likely contamination. 3. Peritoneal carcinomatosis with ascites and small bowel obstruction most li dre from the ileus bowel of the peritoneal cancer disease and/or chemo. No perforation. Nausea and vomiting. Diarrhea started after chemotherapy. Now slowly improving. 4. Left hydronephrosis due to obstruction. NO visible stone per CT scan. Pending urology evaluation. 5 UA showed UTI, s/p IV antibiotic treatment for 5 days. No symptoms now. 6. Anemia, from chemo 7. Hyponatremia, 8. Pt is full code at this point. 9. Skin rash, ? drug allergy Plan: 1. Wean off TPN. 2. Continue IV antiemetics, Zofran, Protonix, Pepcid 3. Start clear liquid today. If tolerance, slowly advance diet 4. D/C antibiotics 5. Pharmacy to manage the TPN and sodium. 6. Anticipate to go home in 2-3 days. Clinical Quality Measures DVT/VTE Risk/Contraindication: Risk Factor Score Per Nursin RFS Level Per Nursing on Admit: 4+=Very High HUY STONE MD May 03, 2019 09:27
[2019-05-03 10:00] LABS: PHOSPHORUS 4.7 MG/DL (2.3-4.7)
[2019-05-03] MEDS: AA 4.25% W/LYTES IN D5W IV SOL 1,000 ML IV SCH ×2 (11:28→18:45)
[2019-05-03 16:08] VITALS: BP 120/76
[2019-05-03] MEDS: GABAPENTIN 300 MG (NEURONTIN) CAP PO SCH (18:01)
[2019-05-03] MEDS: ONDANSETRON 4 MG/2 ML (SDV) Z0FRAN IVP PRN (20:07)
[2019-05-04 00:31] VITALS: BP 99/63
[2019-05-04] MEDS: SUCRALFATE 1 GM (CARAFATE) TAB PO SCH ×3 (05:51→16:20)
[2019-05-04] MEDS: LEVOTHYROXINE 25 MCG (LEVOTHROID) TAB PO SCH (05:51)
[2019-05-04 06:23] LABS: BUN/CREATININE RATIO 24; CALCIUM 8.5 MG/DL (8.5-10.1); CARBON DIOXIDE 23 MMOL/L (21-32); CHLORIDE 101 MMOL/L (98-107); CREATININE SERUM 0.66 MG/DL (0.60-1.30); GFR ESTIMATED > 60; GLUCOSE 84 MG/DL (70-105); POTASSIUM 4.5 MMOL/L (3.6-5.0); SODIUM 133 MMOL/L (135-145)
--- NOTE | 2019-05-04 06:38 | Progress Note - Surgery ---
TOM MCPHERSON [facility] 05/04/19 0637: Subjective Date Seen by a Provider: May 04, 2019 Time Seen by a Provider: 06:33 Subjective/Events-last exam laying down in bed comfortable. Denies any abd pain, N/V, SOB, dysphagia, diarrhea, constipation, F, chills, increased abd distension, or any other sx at this time. Reports she had an episode of mild abd discomfort "like I had to pass gas" last night which resolved after taking Ondansetron. Reports tolerating clear liquid diet well. Review of Systems General: No Chills, No Fatigue Pulmonary: No Dyspnea, No Cough Cardiovascular: No: Chest Pain, Palpitations Gastrointestinal: Other (has distension, unchaged from past few days); No: Nausea, Vomiting, Abdominal Pain, Diarrhea, Constipation Objective Exam Vital Signs Date Time Temp Pulse Resp B/P (MAP) Pulse Ox O2 Delivery O2 Flow Rate FiO2 05/04/19 00:31 36.4 70 22 99/63 (75) 97 Room Air 05/03/19 20:00 Room Air 05/03/19 16:08 36.8 76 20 120/76 (91) 97 Room Air 05/03/19 08:00 36.3 64 20 110/69 (83) 97 Room Air 05/03/19 08:00 Room Air I & O 05/04/19 07:00 Intake Total 1345 ml Balance 1345 ml Capillary Refill : Less Than 3 Seconds General Appearance: No Apparent Distress, WD/WN HEENT: PERRL/EOMI, Normal ENT Inspection Neck: Full Range of Motion, Non Tender, Supple Respiratory: Chest Non Tender, No Accessory Muscle Use, No Respiratory Distress Cardiovascular: Regular Rate, Rhythm Gastrointestinal: soft, distended (minimal fluid wave, unchaged from previous day); No guarding, No rebound, No tenderness Extremity: Normal Capillary Refill, Non Tender, No Calf Tenderness Neurologic/Psychiatric: Alert, Oriented x3 Skin: Normal Color, Warm/Dry Lymphatic: No Adenopathy Results Lab Laboratory Tests 05/04/19 06:00: Sodium Level 133L, Potassium Level 4.5, Chloride Level 101, Carbon Dioxide Level 23, Anion Gap 9, Blood Urea Nitrogen 16, Creatinine 0.66, Estimat Glomerular Filtration Rate > 60, BUN/Creatinine Ratio 24, Glucose Level 84, Calcium Level 8.5 Microbiology 04/29/19 Urine Culture - Final, Complete Gram Pos Mixed Bacterial Cintia Enterococcus faecium 04/28/19 MRSA Screen - Final, Complete MRSA not isolated Assessment/Plan Assessment/Plan Assessment/Plan Metastatic breast cancer with mets to bone and peritoneal carcinomatosis CT on 04/30 showed fluid-filled dilated loops of large and small bowel diffusely w/ no transition point, concerning for ileus and/or colitis Moderate amount of ascites on CT Anemia Hyponatremia Hydronephrosis of left kidney UTI, Enterococcus faecium, mixed gram+ gut cintia Hyponatremia improving Tolerating clear liquid diet, having bowel function,advance diet slowly as tolerated will do paracentesis if patient becomes more uncomfortable from accumulation of fluid Plan for d/c at the end of this week per Dr. Gregory no surgical intervention this time. Clinical Quality Measures DVT/VTE Risk/Contraindication: Risk Factor Score Per Nursin RFS Level Per Nursing on Admit: 4+=Very High NICKIE PATINO DO 05/04/19 1755: Subjective Subjective/Events-last exam Laying in bed. Tolerating liquids. Abdomen slightly more distended. Having bowel function, but loose. Minimal nausea. Denies fever sweats chills shortness of breath or chest pain. Objective Exam General Appearance: No Apparent Distress, WD/WN HEENT: PERRL/EOMI, Normal ENT Inspection Neck: Full Range of Motion, Non Tender, Supple Respiratory: Chest Non Tender, No Accessory Muscle Use, No Respiratory Distress Cardiovascular: Regular Rate, Rhythm Gastrointestinal: distended (minimal fluid wave, unchaged from previous day); No guarding, No rebound, No tenderness Extremity: Normal Capillary Refill, Non Tender, No Calf Tenderness Neurologic/Psychiatric: Alert, Oriented x3 Skin: Normal Color, Warm/Dry Lymphatic: No Adenopathy Assessment/Plan Assessment/Plan Assessment/Plan Metastatic breast cancer with mets to bone and peritoneal carcinomatosis CT on 04/30 showed fluid-filled dilated loops of large and small bowel diffusely w/ no transition point, concerning for ileus and/or colitis Moderate amount of ascites on CT Anemia Hyponatremia Hydronephrosis of left kidney UTI, Enterococcus faecium, mixed gram+ gut cintia advance diet as tolerates if ascites continues to increase will do paracentesis when uncomfortable patient agrees with plan Supervisory-Addendum Brief Verification & Attestation Participated in pt care: history, MDM, physical Personally performed: exam, history, MDM, supervision of care Care discussed with: Medical Student Procedures: n/a Results interpretation: Verified all documentation Verification and Attestation of Medical Student E/M Service A medical student performed and documented this service in my presence. I reviewed and verified all information documented by the medical student and made modifications to such information, when appropriate. I personally performed the physical exam and medical decision making. Nickie Patino, May 04, 2019,17:55 TOM MCPHERSON [facility] [place] May 04, 2019 06:37 NICKIE PATINO DO May 04, 2019 17:55
[2019-05-04 08:00] VITALS: BP 119/71
[2019-05-04] MEDS: AA 4.25% W/LYTES IN D5W IV SOL 1,000 ML IV SCH (08:03)
[2019-05-04] MEDS: PANTOPRAZOLE 40 MG (PROTONIX) VIAL IV SCH (09:23)
[2019-05-04] MEDS: FAMOTIDINE 20MG/2ML IV (PEPCID) IVP SCH (09:23)
[2019-05-04] MEDS: FLUoxetine HCL 20 MG (PROzac) CAP PO SCH (09:23)
--- NOTE | 2019-05-04 10:30 | NUR ---
"RD ASSESSMENT PMHx: CA(metastatic breast); hypothyroidism PT INTERACTION: Pt was awake and pleasant during nutrition follow-up. Pt states she has been eating a bit better since last assessment. Note avg PO intake of 25% x2meal, per chart review. Pt states no issues with n/v since last assessment. Pt states some issues with diarrhea since last assessment. Note last BM was 05/04 and pt not currently on bowel regimen, per chart review. Note pt has recent 8# wt loss x15d, per chart review. ABNORMAL NUTRITION-RELATED LAB VALUES LOW: Na 133 HIGH: Est. kcal needs: 9308-7762 kcal | 20-25 kcal/kg Est. Pro needs: 71-82 g Pro | 1.0-1.2 g Pro/kg PES STATEMENT: Inadequate oral intake (NI-2.1) related to loss of appetite | diarrhea as evidenced by pt interview | avg PO intake 25% x2meal INTERVENTION: Continue with current diet order of DYS2 Mechanically Altered diet. Would recommend advancing diet as medically able and as tolerated. Add Ensure Enlive (vary) to meals TID, for increased kcal intake. Providers 350 kcal and 13 g Pro per serving. Will continue to follow and reassess as pt needs and status change. MONITOR/EVALUATE: PO Intake; Plan of Care; Hydration Status; Weight Status; Lab Values Abdoulaye Chacon, MS, RD, LD"
--- NOTE | 2019-05-04 11:29 | Discharge Summary ---
Diagnosis/Chief Complaint Date of Admission Apr 28, 2019 at 21:59 Date of Discharge Discharge Date: May 04, 2019 Discharge Time: 20:00 Admission Diagnosis Admission Diagnosis 1. Metastatic breast cancer with extensive bone and peritoneal metastasis/carc inomatosis. S/p chemo Taxotere 2. Neutropenic fever. 3. Peritoneal carcinomatosis with ascites and small bowel obstruction. 4. Intractable nausea and vomiting, diarrhea. 5 UTI, s/p IV antibiotic treatment for 5 days. Resolved 6. Anemia, from chemo 7. Hyponatremia, 8. Left hydronephrosis due to obstruction. NO visible stone per CT scan. Discharge Diagnosis 1. Metastatic breast cancer with extensive bone and peritoneal metastasis/carcinomatosis. S/p chemo Taxotere 2. Neutropenic fever, resolved. Blood culture 04/18/2019 bottles grew staph coag negative on day 3. Most likely contamination. 3. Peritoneal carcinomatosis with ascites and small bowel obstruction most likely from the ileus bowel of the peritoneal cancer disease and/or chemo. No perforation. 4. Intractable nausea and vomiting, diarrhea. 5 UA showed UTI, s/p IV antibiotic treatment for 5 days. Resolved 6. Anemia, from chemo 7. Hyponatremia, Improved 8. Left hydronephrosis due to obstruction. NO visible stone per CT scan. Pending urology evaluation. 9. Skin rash, ? drug allergy Reason Hospital Visit Metastatic breast to bone and peritoneal carcinomatosis. Intractable nausea vomiting, ilus bowel. Neutropenic fever and hypotensive. Anemia Discharge Summary Hospital Course Was the Problem List Reviewed?: Yes Hospital Course Ms. 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 She also has left hydronephrosis, pending urologist evaluation. She was admitted initially to 4th floor for intractable nausea, vomiting with anti-emetics and IVF and has no improvement due to the underlie cause of her nausea vomiting was peritoneal carcinomatosis. She had chemotherapy Taxotere for the cancer and then developed anemia, neutropenic and then neutropenic fever, hypotensive, ilus bowel with small bowel obstruction. Her UA also showed UTI. She was transferred to ICU and treated with IV Cefepime and Levaquin along with IVF and TPN support as well as 2 units RBC transfusion. She was on neutropenic precaution and NPO bowel rest until her blood counts recovered. We then stopped her IV antibiotics but continued her TPN until she was able to drink and eat small amount without any more nausea and vomiting. She also developed diarrhea after chemo which was treated with supportive care and replacement of IVF. Her diarrhea is nearly resolved. She is feeling good enough and wants to go home today after she finishes her TPN. I will see her in the cancer center next Friday. Pt knows to call cancer if any new issues. Labs Laboratory Tests 05/01/19 14:00: Red Blood Count 3.27L, Hemoglobin 8.5L, Hematocrit 26L, Red Cell Distribution Width 18.1H, Neutrophils (%) (Auto) 83H, Lymphocytes (%) (Auto) 8L, Neutrophils # (Auto) 8.6H, Lymphocytes # (Auto) 0.9L, Sodium Level 134L, Carbon Dioxide Level 20L, Blood Urea Nitrogen 23H, Glucose Level 112H, Calcium Level 7.8L 05/03/19 06:03: Red Blood Count 3.27L, Hemoglobin 8.4L, Hematocrit 27L, Red Cell Distribution Width 18.5H, Neutrophils (%) (Auto) 77H, Sodium Level 133L, Blood Urea Nitrogen 21H, Calcium Level 8.2L, Total Protein 5.0L, Albumin 2.5L 05/04/19 06:00: Sodium Level 133L Procedures None. Discharge Physical Examination Allergies: Coded Allergies: morphine (Verified Allergy, Intermediate, Itching, 04/18/19) aspirin (Verified Allergy, Unknown, 01/13/18) prochlorperazine (Verified Allergy, Unknown, 01/13/18) Vitals & I&Os Vital Signs Date Time Temp Pulse Resp B/P (MAP) Pulse Ox O2 Delivery O2 Flow Rate FiO2 05/04/19 08:04 Room Air 05/04/19 08:00 36.6 74 20 119/71 (87) 95 General Appearance: Alert, Oriented X3 Respiratory: Clear to Auscultation Abdominal: Soft, No Tenderness, Other (distended and + ascites) Skin: Other (rash) Psych/Mental Status: Mental Status NL, Mood NL Discharge Home Medications Reviewed and agree with Discharge Medication list on patient's Discharge Instruction sheet Instructions to Patient/Family Please see electronic discharge instructions given to patient. Clinical Quality Measures DVT/VTE Risk/Contraindication: Risk Factor Score Per Nursin RFS Level Per Nursing on Admit: 4+=Very High XUN,ROQUE-MARLO MD May 04, 2019 11:29
--- NOTE | 2019-05-04 14:23 | NUR ---
Pt is hoping for discharge today. and daughters anxious for her to return home. She will be followed by the Cancer Center. Pt states she has no current continuing care needs.
[2019-05-04 17:47] VITALS: BP 119/71
--- NOTE | 2019-05-04 17:54 | NUR ---
PLEASE NOTE THAT PER PT DR STONE GAVE HER A F/U APPOINTMENT WHEN SHE ROUNDED AND PT'S HAS CARD WITH TIME AND DATE
[2019-05-05] MEDS ORDERED: PROM25TA14 PO (18:06)
[2019-05-05] MEDS ORDERED: ONDA4TAB10 PO (18:06)
[2019-05-05] MEDS ORDERED: FLUO40CA PO (18:15)
== END 2019-05-04 17:52 | disposition home or self-care (01) | DRG 809 ==
LOC: ICU 21:59 → 4TH 04-30 10:24
PROVIDERS: ADMIT Internal Medicine Hematology & Oncology; ATTEND Internal Medicine Hematology & Oncology
DX: D70.9 Neutropenia, unspecified (principal); R50.81 Fever presenting with conditions classified elsewhere; I95.9 Hypotension, unspecified; C78.6 Secondary malignant neoplasm of retroperitoneum and peritoneum; C79.51 Secondary malignant neoplasm of bone; E87.1 Hypo-osmolality and hyponatremia; N13.6 Pyonephrosis; K56.699 Other intestinal obstruction unspecified as to partial versus complete obstruction; R18.8 Other ascites; N39.0 Urinary tract infection, site not specified; K52.1 Toxic gastroenteritis and colitis; D64.81 Anemia due to antineoplastic chemotherapy; I10 Essential (primary) hypertension; J45.909 Unspecified asthma, uncomplicated; G62.9 Polyneuropathy, unspecified; K21.9 Gastro-esophageal reflux disease without esophagitis; E03.9 Hypothyroidism, unspecified; F90.9 Attention-deficit hyperactivity disorder, unspecified type; G47.9 Sleep disorder, unspecified; F32.9 Major depressive disorder, single episode, unspecified; R00.0 Tachycardia, unspecified; Z85.3 Personal history of malignant neoplasm of breast; B95.2 Enterococcus as the cause of diseases classified elsewhere; L27.0 Generalized skin eruption due to drugs and medicaments taken internally; Z79.899 Other long term (current) drug therapy; T45.1X5A Adverse effect of antineoplastic and immunosuppressive drugs, initial encounter
CPT/HCPCS: 36415; 71045; 74178; 80048; 80053; 81000; 83735; 84100; 85007; 85025; 85027; 86850; 86900; 86901; 86920; 87077; 87081; 87088; 87186

== ENCOUNTER 2019-05-05 16:46 | Observation (INO) | payer MEDICARE, OTHER ==
[~2019-05-05] VITALS: Ht 165.1 cm; Wt 70.1 kg
[2019-05-05] MEDS ORDERED: LORazepam 0.5 MG (ATIVAN) TABLET PO PRN (17:15)
[2019-05-05] MEDS ORDERED: PROMETHAZINE INJ 25 MG/ML (PHENERGAN) AMP IVP PRN (17:15)
[2019-05-05] MEDS ORDERED: ACETAMINOPHEN 500 MG TAB (TYLENOL) PO PRN (17:15)
[2019-05-05] MEDS ORDERED: fentaNYL INJECTION 100 MCG/2 ML AMP IVP PRN (17:15)
[2019-05-05] MEDS ORDERED: ONDANSETRON 4 MG/2 ML (SDV) Z0FRAN IVP PRN (17:15)
--- NOTE | 2019-05-05 17:15 | NUR ---
SUZIE MILLER admitted to room 420-1, with an admitting diagnosis of dehydration, n/v, on 05/05/19 from ER, accompanied by HER .SUZIE MILLER introduced to surroundings, call light, bed controls, phone, TV, temperature control, lights, meal times, smoking policy, visitor policy, side rail policy, bathrooms and showers. Patient Rights given to patient in the handbook. SUZIE MILLER verbalizes understanding that [facility] is not responsible for the loss or damage to any personal effects or valuables that are kept in the patients posession during their hospitalization. The following Patient Care Plans were discussed with the PATIENT: Discharge Planning, REHYDRATION,FLUID VOLUME DEFICIT, andDIET . SUZIE MILLER verbalizes understanding of Interdisciplinary Patient Education.
--- NOTE | 2019-05-05 17:24 | Oncology History & Physical ---
Visit Information Visit Information Date of Admission May 05, 2019 at 17:14 Attending Physician Mo Stone MD Admitting Physician Juliette Stone Chief Complaint Intractable nausea and vomiting Interval History Ms. 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 She also has left hydronephrosis, pending urologist evaluation. She was admitted initially to 4th floor 04/18/2019 for intractable nausea, vomiting with anti-emetics and IVF and has no improvement due to the underlie cause of her nausea vomiting was peritoneal carcinomatosis. She had chemotherapy Taxotere for the cancer and then developed anemia, neutropenic and then neutropenic fever, hypotensive, ilus bowel with small bowel obstruction. Her UA also showed UTI. She was transferred to ICU and treated with IV Cefepime and Levaquin along with IVF and TPN support as well as 2 units RBC transfusion. She was on neutropenic precaution and NPO bowel rest until her blood counts recovered. We then stopped her IV antibiotics but continued her TPN until she was able to drink and eat small amount without any more nausea and vomiting. She also developed diarrhea after chemo which was treated with supportive care and replacement of IVF. Her diarrhea was nearly resolved. She is feeling good enough and wants to go home yesterday after she finished her TPN. She then had nausea vomiting again today. Her called and brought her to cancer center. She was admitted again. I consulted the patient on: 05/05/19 17:23 Time Seen by Provider: 17:24 Review of Systems Constitutional: weakness Respiratory: no symptoms reported Cardiovascular: no symptoms reported Gastrointestinal: see HPI Genitourinary: no symptoms reported Musculoskeletal: no symptoms reported Skin: rash Health Status Allergies Coded Allergies: morphine (Verified Allergy, Intermediate, Itching, 04/18/19) aspirin (Verified Allergy, Unknown, 01/13/18) prochlorperazine (Verified Allergy, Unknown, 01/13/18) Home Medications Acetaminophen (Tylenol Extra Strength) 500 Mg Tablet, 500 MG PO Q6H PRN for PAIN-MILD (1-4), (Reported) Dextroamphetamine/Amphetamine (Dextroamp-Amphet ER 30 mg Cap) 30 Mg Cap.er.24h, 30 MG PO DAILY, (Reported) Diphenhydramine HCl (Benadryl) 25 Mg Capsule, 50 MG PO Q4H PRN for ALLERGY SYMPTOMS, (Reported) Fluoxetine HCl (Fluoxetine HCl) 40 Mg Capsule, 40 MG PO DAILY for 30 Days, #30 Prescribed by: ASYA STEPHENS on 05/05/19 1815 Gabapentin (Gabapentin) 300 Mg Capsule, 300 MG PO HS, (Reported) Ibuprofen (Ibuprofen) 200 Mg Tablet, 400 MG PO Q6H PRN for PAIN-MILD (1-4), (Reported) Levothyroxine Sodium (Levothyroxine Sodium) 25 Mcg Tablet, 25 MCG PO DAILY, (Reported) Omeprazole (Omeprazole) 40 Mg Capsule.dr, 40 MG PO HS, (Reported) Oxycodone HCl/Acetaminophen (Oxycodone-Acetaminophen 5-325) 1 Each Tablet, 1 TAB PO HS PRN for PAIN-MODERATE (5-7), (Reported) Promethazine HCl (Promethazine Tablet) 25 Mg Tablet, 25 MG PO Q6H PRN for NAUSEA/VOMITING for 30 Days, #30 Prescribed by: ASYA STEPHENS on 05/05/19 1806 Sucralfate (Sucralfate) 1 Gm Tablet, 1 GM PO ACHS for 14 Days, #30 Prescribed by: MITCH CROCKETT on 05/06/19 1059 Zolpidem Tartrate (Zolpidem Tartrate ER) 12.5 Mg Tab.mphase, 12.5 MG PO HS, (Reported) ACY-[id number]-[id number] Hx Patient Social History 2nd Hand Smoke Exposure: No Recent Foreign Travel: No Contact w/other who traveled: No Recent Hopitalizations: No Family Medical History Significant Family History: No Pertinent Family Hx Physical Exam Vital Signs Vital Signs - First Documented 05/05/19 18:15 Temp 36.4 Pulse 108 Resp 16 B/P (MAP) 118/82 Pulse Ox 97 O2 Delivery Room Air Capillary Refill : Height, Weight, BMI Height: '" Weight: lbs. oz. kg; 27.33 BMI Method: General Appearance: Other (tired appearance) Neck: Non Tender, Supple Respiratory: Chest Non Tender, No Accessory Muscle Use, No Respiratory Distress Cardiovascular: Regular Rate, Rhythm, Tachycardia Gastrointestinal: Non Tender, Soft, Distended Extremity: Non Tender, No Calf Tenderness, No Pedal Edema Neurologic/Psychiatric: Alert, Oriented x3 Impression & Plan Impression & Plan 1. Metastatic breast cancer with extensive bone and peritoneal metastasis/carcinomatosis. S/p chemo Taxotere 2. Neutropenic fever, resolved. However, blood culture 04/18/2019 one/2 bottles grew staph coag negative on day 3. Most likely contamination. Will close monitor. 3. Peritoneal carcinomatosis with ascites and small bowel obstruction most likely from the ileus bowel of the peritoneal cancer disease and/or chemo. No perforation. 4. Intractable nausea and vomiting. Readmit from the cancer center today. IV antiemetic, NPO bowel rest, IV decadron and Protonix 5 UA showed UTI, s/p IV antibiotic treatment for 5 days. Will repeat a UA 6. Anemia, from chemo 7. Hyponatremia. 8. Left hydronephrosis due to obstruction. NO visible stone per CT scan. Pending urology evaluation. 9. Skin rash, ? drug allergy Diagnosis 1. Metastatic breast cancer with extensive bone and peritoneal metastasis/carcinomatosis. S/p chemo Taxotere 2. Recent history neutropenic fever, resolved. However, blood culture 04/18/2019 one/2 bottles grew staph coag negative on day 3. Most likely contamination. 3. Peritoneal carcinomatosis with ascites and small bowel obstruction most likely from the ileus bowel of the peritoneal cancer disease and/or chemo. No perforation. 4. Intractable nausea and vomiting. 6. Anemia, from chemo 7. Hyponatremia. 8. Left hydronephrosis due to obstruction. NO visible stone per CT scan. Pending urology evaluation. 9. Skin rash, ? drug allergy Admission Status: Inpatient Order (span 2 midnights) Reason for Inpatient Admission: intractable nausea vomiting, breast cancer peritonela carcinomatosis s/p chemo MO STONE MD May 05, 2019 17:24
[2019-05-05] MEDS ORDERED: ONDA4TAB10 PO (18:06)
[2019-05-05] MEDS ORDERED: PROM25TA14 PO (18:06)
[2019-05-05 18:15] VITALS: BP 118/82
[2019-05-05] MEDS ORDERED: FLUO40CA PO (18:15)
[2019-05-05] MEDS: NS IV 500 ML 500 ML IV SCH (18:22)
[2019-05-05] MEDS ORDERED: GABAPENTIN 300 MG (NEURONTIN) CAP PO SCH (19:00)
[2019-05-05 20:00] VITALS: BP 122/84
[2019-05-05] MEDS: PANTOPRAZOLE 40 MG (PROTONIX) VIAL IV SCH (21:20)
[2019-05-05] MEDS: FAMOTIDINE 20MG/2ML IV (PEPCID) IVP SCH (21:20)
[2019-05-05] MEDS: SUCRALFATE 1 GM (CARAFATE) TAB PO SCH (21:21)
[2019-05-06] VITALS: BP 103/71
[2019-05-06 04:20] VITALS: BP 101/66
[2019-05-06] MEDS: SUCRALFATE 1 GM (CARAFATE) TAB PO SCH ×2 (05:55→11:45)
[2019-05-06] MEDS ORDERED: LEVOTHYROXINE 25 MCG (LEVOTHROID) TAB PO SCH (06:30)
[2019-05-06 08:00] VITALS: BP 129/82
[2019-05-06] MEDS: PANTOPRAZOLE 40 MG (PROTONIX) VIAL IV SCH (08:24)
[2019-05-06] MEDS: FAMOTIDINE 20MG/2ML IV (PEPCID) IVP SCH (08:30)
[2019-05-06] MEDS: NS IV 500 ML 500 ML IV SCH (08:43)
[2019-05-06] MEDS ORDERED: DEXAMETHASONE 4 MG/ML SDV (DECADRON) IV SCH (09:00)
[2019-05-06] MEDS ORDERED: FLUoxetine HCL 20 MG (PROzac) CAP PO SCH (09:00)
[2019-05-06] MEDS ORDERED: SUCR1TAB PO (10:59)
[2019-05-06] MEDS ORDERED: DEXA4TAB PO (10:59)
[2019-05-06] MEDS ORDERED: ONDA4TAB11 PO (11:00)
--- NOTE | 2019-05-06 11:13 | NUR ---
Received dietary consult for MST score. Note per pt and physician, pt is discharging today. Pt has no needs at this time. Will continue to follow and reassess as pt needs and status change. Abdoulaye Chacon MS, RD, LD
--- NOTE | 2019-05-06 11:52 | Discharge Summary ---
Diagnosis/Chief Complaint Date of Admission May 05, 2019 at 17:14 Date of Discharge Discharge Date: May 06, 2019 Discharge Time: 11:51 Admission Diagnosis Admission Diagnosis 1. Metastatic breast cancer with extensive bone and peritoneal metastasis/carc inomatosis. S/p chemo Taxotere 2. Neutropenic fever, resolved. However, blood culture 04/18/2019 one/2 bottles grew staph coag negative on day 3. Most likely contamination. Will close monitor. 3. Peritoneal carcinomatosis with ascites and small bowel obstruction most likely from the ileus bowel of the peritoneal cancer disease and/or chemo. No perforation. 4. Intractable nausea and vomiting. Readmit from the cancer center today. IV antiemetic, NPO bowel rest, IV decadron and Protonix 5 UA showed UTI, s/p IV antibiotic treatment for 5 days. Will repeat a UA 6. Anemia, from chemo 7. Hyponatremia. 8. Left hydronephrosis due to obstruction. NO visible stone per CT scan. Pending urology evaluation. 9. Skin rash, ? drug allergy Discharge Diagnosis 1. Metastatic breast cancer with extensive bone and peritoneal metastasis/carcinomatosis. S/p chemo Taxotere 2. Neutropenic fever, resolved. However, blood culture 04/18/2019 one/2 bottles grew staph coag negative on day 3. Most likely contamination. Will close monitor. 3. Peritoneal carcinomatosis with ascites and small bowel obstruction most likely from the ileus bowel of the peritoneal cancer disease and/or chemo. No perforation. 4. Intractable nausea and vomiting. Readmit from the cancer center today. IV antiemetic, NPO bowel rest, IV decadron and Protonix 5 UA showed UTI, s/p IV antibiotic treatment for 5 days. Will repeat a UA 6. Anemia, from chemo 7. Hyponatremia. 8. Left hydronephrosis due to obstruction. NO visible stone per CT scan. Pending urology evaluation. 9. Skin rash, ? drug allergy Reason Hospital Visit nausea vomiting Discharge Summary Hospital Course Was the Problem List Reviewed?: Yes Hospital Course Ms. 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 She also has left hydronephrosis, pending urologist evaluation. She was admitted initially to 4th floor 04/18/2019 for intractable nausea, vomiting with anti-emetics and IVF and has no improvement due to the underlie cause of her nausea vomiting was peritoneal carcinomatosis. She had chemotherapy Taxotere for the cancer and then developed anemia, neutropenic and then neutropenic fever, hypotensive, ilus bowel with small bowel obstruction. Her UA also showed UTI. She was transferred to ICU and treated with IV Cefepime and Levaquin along with IVF and TPN support as well as 2 units RBC transfusion. She was on neutropenic precaution and NPO bowel rest until her blood counts recovered. We then stopped her IV antibiotics but continued her TPN until she was able to drink and eat small amount without any more nausea and vomiting. She also developed diarrhea after chemo which was treated with supportive care and replacement of IVF. Her diarrhea was nearly resolved. She was feeling good enough and wants to go home after she finished her TPN. She was trying to eat at home next morning. I maybe eat too much and too fast because I was feeling good. She then had nausea vomiting again. Her called and brought her to cancer center. She was admitted again yesterday. She felt much better after the vomiting. We kept her NPO over the night and gave her Phenergan, Protonix and Decadron. She has no more nausea and vomiting. She wants to go home again today. "I learned my lesion". Procedures None. Discharge Physical Examination Allergies: Coded Allergies: morphine (Verified Allergy, Intermediate, Itching, 04/18/19) aspirin (Verified Allergy, Unknown, 01/13/18) prochlorperazine (Verified Allergy, Unknown, 01/13/18) Vitals & I&Os Vital Signs Date Time Temp Pulse Resp B/P (MAP) Pulse Ox O2 Delivery O2 Flow Rate FiO2 05/06/19 12:19 05/06/19 08:08 Room Air 05/06/19 08:00 35.7 100 20 100 General Appearance: Alert, Oriented X3 Respiratory: Clear to Auscultation Cardiovascular: Regular Rate Abdominal: Soft, No Tenderness, Other (distended) Skin: Other (rash) Neuro: Normal Gait, Normal Speech, Strength at 5/5 X4 Ext Psych/Mental Status: Mental Status NL Discharge Home Medications Reviewed and agree with Discharge Medication list on patient's Discharge Instruction sheet Instructions to Patient/Family Please see electronic discharge instructions given to patient. Clinical Quality Measures DVT/VTE Risk/Contraindication: Risk Factor Score Per Nursin RFS Level Per Nursing on Admit: 2=Moderate HUY STONE MD May 06, 2019 11:52
[2019-05-06] MEDS ORDERED: ZOLP12.546 PO (12:03)
== END 2019-05-06 12:30 | disposition home or self-care (01) ==
LOC: 4TH 17:14
PROVIDERS: ADMIT Internal Medicine Hematology & Oncology; ATTEND Internal Medicine Hematology & Oncology
DX: C50.919 Malignant neoplasm of unspecified site of unspecified female breast (principal); C79.51 Secondary malignant neoplasm of bone; N13.30 Unspecified hydronephrosis; C48.2 Malignant neoplasm of peritoneum, unspecified; D64.81 Anemia due to antineoplastic chemotherapy; E87.1 Hypo-osmolality and hyponatremia; N39.0 Urinary tract infection, site not specified; R18.8 Other ascites; Z79.891 Long term (current) use of opiate analgesic; Z88.6 Allergy status to analgesic agent; Z88.5 Allergy status to narcotic agent; Z92.21 Personal history of antineoplastic chemotherapy; Z88.8 Allergy status to other drugs, medicaments and biological substances; Z79.899 Other long term (current) drug therapy

== ENCOUNTER → 2019-05-11 | Outpatient (CLI) | payer MEDICARE, OTHER ==
[~2019-05-11] MED LIST changes: +DEXA4TAB PO; -FLUO20CA45 PO; +FLUO20CA46 PO; +GADOBUTROL 10 MMOL/10 ML (GADAVIST) VIAL IV ONE; +ONDA-105 PO; -ONDA4TAB10 PO; +ONDA4TAB11 PO; +PROM25TA14 PO; +SUCR1TAB PO
--- NOTE | 2019-05-11 09:24 | Diagnostic Imaging Report ---
PROCEDURE: MR imaging of the brain with and without contrast. TECHNIQUE: Multiplanar, multisequence MR imaging of the brain was performed with and without contrast. INDICATION: History of breast cancer. Dizziness. COMPARISON: MRI brain on 03/23/2019. Findings: No acute ischemia, mass, or hemorrhage. There is redemonstration of the rounded area of T2/FLAIR hyperintense signal within the central belle. No development of enhancement is seen. No new parenchymal abnormalities are seen. Stable chronic scattered microvascular disease is seen in the periventricular and subcortical white matter. The ventricles, cortical sulci, and basilar cisterns are symmetric and unremarkable. The sellar and suprasellar regions have a normal appearance. The brainstem and posterior fossa are unremarkable. The paranasal sinuses and mastoid air cells demonstrate normal signal characteristics. The globes and orbits are symmetric and unremarkable. The scalp and calvarium have a normal appearance. Impression: 1. No acute ischemia, mass, or hemorrhage. No abnormal enhancement suggest metastatic disease. 2. Stable rounded T2/FLAIR hyperintense signal in the mid belle without associated enhancement. Possible etiologies include prior demyelination and chronic microvascular disease. Low-grade gliosis is felt to be less likely. Recommend attention on follow-up brain MRI in 6-12 months. Brain MRI may be repeated earlier if symptoms worsen. Dictated by: Dictated on workstation # [id number]
== END ==
LOC: RAD 07:45
PROVIDERS: ATTEND Internal Medicine Hematology & Oncology
DX: C50.911 Malignant neoplasm of unspecified site of right female breast (principal); C79.51 Secondary malignant neoplasm of bone; G93.89 Other specified disorders of brain
CPT/HCPCS: 70553

== ENCOUNTER → 2019-05-12 | Outpatient (CLI) | payer MEDICARE ==
[~2019-05-12] MED LIST changes: -GADOBUTROL 10 MMOL/10 ML (GADAVIST) VIAL IV ONE
--- NOTE | 2019-05-12 15:06 | Diagnostic Imaging Report ---
INDICATION: Ascites. Sonographic interrogation of the right and left upper and lower quadrants was performed to evaluate for ascites. Moderate ascites is present. Left lower quadrant was marked for Dr. Patino. A total of 4700 mL of fluid was removed by Dr. Patino. IMPRESSION: Ultrasound for paracentesis. Dictated by: Dictated on workstation # [id number]
== END ==
LOC: RAD 13:00
PROVIDERS: ATTEND Surgery
DX: C50.311 Malignant neoplasm of lower-inner quadrant of right female breast (principal); C79.51 Secondary malignant neoplasm of bone; C78.6 Secondary malignant neoplasm of retroperitoneum and peritoneum; R18.8 Other ascites
CPT/HCPCS: 49083

== ENCOUNTER → 2019-05-12 | Outpatient (CLI) | payer MEDICARE ==
[~2019-05-12] VITALS: Ht 165.1 cm; Wt 70.5 kg
[~2019-05-12] MED LIST changes: +ALBUMIN 25% 25 GM/100 ML 100 ML IV ONE; +CATHETER FLUSH 10 ML SYR IV PRN; +HOLD METFORMIN - RECEIVED CONTRAST 20 ML VIAL IV SCH; +IOHEXOL 350 MG/ML 100 ML (OMNIPAQUE 350) VIAL IV ONE; +NS 100 ML (IVPB) BAG IV ONE
--- NOTE | 2019-05-12 15:39 | Diagnostic Imaging Report ---
PROCEDURE: CT chest, abdomen, and pelvis with contrast. TECHNIQUE: Multiple contiguous axial images were obtained through the chest, abdomen, and pelvis after the administration of intravenous contrast. Auto Exposure Controls were utilized during the CT exam to meet ALARA standards for radiation dose reduction. INDICATION: Right breast carcinoma. COMPARISON: Correlation is made with prior CT chest from 04/28/[address] abdomen and pelvis from 04/30/2019. CT CHEST: Right chest wall port appears to have the tip at the SVC right atrial junction. Postsurgical changes in the right breast are identified. No axillary lymphadenopathy is detected. No definite internal mammary lymphadenopathy is seen. No mediastinal or hilar lymphadenopathy is detected. There is no pericardial or pleural fluid identified. No noncalcified pulmonary nodules, masses or infiltrates are seen. Multiple sclerotic foci within the sternum and thoracic vertebrae are noted consistent with skeletal metastases. IMPRESSION: 1. Osseous metastatic disease. 2. No evidence of thoracic lymphadenopathy or pulmonary metastatic disease. CT ABDOMEN AND PELVIS: Hepatic low densities persist, suggestive of cysts. Gallbladder is unremarkable. No biliary duct dilatation is seen. The pancreas and spleen are unremarkable. No adrenal mass is detected. There continues to be some dilatation of the left renal collecting system, similar to prior exam. There has been some reduction in the ascites, status post recent paracentesis. Generalized thickening of the peritoneum persists consistent with peritoneal carcinomatosis. The degree of wall thickening and bowel loop dilatation does appear to be improved however since prior exam. There is some residual interloop fluid and pelvic free fluid present. Bladder is unremarkable. No definite abdominal or pelvic lymphadenopathy is seen. Diffuse osseous metastatic disease persists. IMPRESSION: 1. Reduction in ascites, status post recent paracentesis. There is some residual free fluid in the abdomen and pelvis. Areas of peritoneal thickening persist suggestive of peritoneal carcinomatosis. Previously noted bowel distention and wall thickening has improved since examination from 04/30/2019. Osseous metastases are again noted. Dictated by: Dictated on workstation # [id number]
--- NOTE | 2019-05-13 04:28 | OPERATIVE REPORT ---
DATE OF SERVICE: 05/12/2019 PREOPERATIVE DIAGNOSIS: Symptomatic ascites. POSTOPERATIVE DIAGNOSIS: Symptomatic ascites. PROCEDURE: Ultrasound-guided paracentesis. SURGEON: Nickie Patino DO ANESTHESIA: Local. ESTIMATED BLOOD LOSS: Minimal. COMPLICATIONS: None. INDICATIONS: The patient is a 59-year-old female with metastatic breast cancer with recurrent ascites. She understands risks and benefits of procedure and wished to proceed with procedure. Consent was signed in the chart. DESCRIPTION OF PROCEDURE: The patient was taken to the procedure room. Ultrasound was used to isolate the largest pocket. The area was then prepped and draped, and timeout was performed. Local anesthetic was infiltrated through the skin and subcutaneous tissue. A 11-blade scalpel was used to make a small skin incision in the left lower quadrant and the [id number] needle and catheter were advanced through the abdominal wall until straw-colored fluid was returned and the catheter was then advanced. The needle was then removed and the abdomen was then drained. A total of 4700 mL of straw-colored fluid was withdrawn. Once all the fluid was removed, the catheter was removed and sterile bandage was applied. The patient tolerated procedure well without any complications. Job ID: [id number] DocumentID: [id number] Dictated Date: 05/12/2019 19:32:24 Grant Manager Date: 05/13/2019 04:27:46 Dictated By: NICKIE PATINO DO
== END ==
LOC: RAD 12:10
PROVIDERS: ATTEND Internal Medicine Hematology & Oncology
DX: C50.311 Malignant neoplasm of lower-inner quadrant of right female breast (principal); C79.51 Secondary malignant neoplasm of bone; R18.8 Other ascites; K63.89 Other specified diseases of intestine; Z98.890 Other specified postprocedural states; Z95.828 Presence of other vascular implants and grafts
CPT/HCPCS: 71260; 74177

== ENCOUNTER 2019-05-22 14:59 | Emergency (ER) | payer MEDICARE, OTHER ==
[~2019-05-22] VITALS: Ht 165 cm; Wt 60.0 kg
[~2019-05-22 14:59] MED LIST changes: -ALBUMIN 25% 25 GM/100 ML 100 ML IV ONE; -CATHETER FLUSH 10 ML SYR IV PRN; -HOLD METFORMIN - RECEIVED CONTRAST 20 ML VIAL IV SCH; -IOHEXOL 350 MG/ML 100 ML (OMNIPAQUE 350) VIAL IV ONE; -NS 100 ML (IVPB) BAG IV ONE
[2019-05-22] MEDS ORDERED: LACTATED RINGERS 1,000 ML IV ONE (15:22)
[2019-05-22] MEDS ORDERED: ACETAMINOPHEN 500 MG TAB (TYLENOL) PO STA (15:37)
--- NOTE | 2019-05-22 15:46 | ED General ---
General Chief Complaint: Fever-Adult/Adol Stated Complaint: FEVER 102 / CHEMO PT Nursing Triage Note: THE PT IS ASSISTED TO THE ROOM BY WHEELCHAIR. NO DISTRESS IS SEEN ON ARRIVAL. LOC IS NORMAL FOR THE PT. THE PT C/O CHILLS AND FEVER THE LAST 12 HRS. Nursing Sepsis Screen: No Definite Risk Source of Information: Patient, Family Exam Limitations: No Limitations History of Present Illness Date Seen by Provider: May 22, 2019 Time Seen by Provider: 15:25 Initial Comments Here with report of fever of 102 at home. Patient is currently undergoing chemotherapy due to breast cancer with metastasis to the bone and abdomen. Last chemotherapy 9 days ago. Reports that fever onset last night or this morning and she feels very weak. She's had vomiting and diarrhea for the last 1-2 days. No report of blood in vomit or stools. The therapy for her nausea and vomiting, including Zofran and Phenergan, was working and then she started getting a fever today. Denies dysuria but has decreased urine. She did not get her flu shot because she reports they make her sick. Timing/Duration: 1-2 Days, Getting Worse Severity: Moderate Associated Systoms: No Chest Pain, No Cough; Fever/Chills, Nausea/Vomiting, Rash; No Shortness of Air; Weakness Allergies and Home Medications Allergies Coded Allergies: morphine (Verified Allergy, Intermediate, Itching, 04/18/19) aspirin (Verified Allergy, Unknown, 01/13/18) prochlorperazine (Verified Allergy, Unknown, 01/13/18) Home Medications Acetaminophen 500 Mg Tablet, 500 MG PO Q6H PRN for PAIN-MILD (1-4), (Reported) Dextroamphetamine/Amphetamine 30 Mg Cap.er.24h, 30 MG PO DAILY, (Reported) Diphenhydramine HCl 25 Mg Capsule, 50 MG PO Q4H PRN for ALLERGY SYMPTOMS, (Reported) Fluoxetine HCl 40 Mg Capsule, 40 MG PO DAILY Prescribed by: ASYA STEPHENS on 05/05/191814 Gabapentin 300 Mg Capsule, 300 MG PO HS, (Reported) Ibuprofen 200 Mg Tablet, 400 MG PO Q6H PRN for PAIN-MILD (1-4), (Reported) Levothyroxine Sodium 25 Mcg Tablet, 25 MCG PO DAILY, (Reported) Omeprazole 40 Mg Capsule.dr, 40 MG PO HS, (Reported) Oxycodone HCl/Acetaminophen 1 Each Tablet, 1 TAB PO HS PRN for PAIN-MODERATE (5- 7), (Reported) Promethazine HCl 25 Mg Tablet, 25 MG PO Q6H PRN for NAUSEA/VOMITING Prescribed by: ASYA STEPHENS on 05/05/19 1806 Sucralfate 1 Gm Tablet, 1 GM PO ACHS Prescribed by: MITCH CROCKETT on 05/06/19 1059 Zolpidem Tartrate 12.5 Mg Tab.mphase, 12.5 MG PO HS, (Reported) Patient Home Medication List Home Medication List Reviewed: Yes Review of Systems Review of Systems Constitutional: see HPI, chills, fever, weakness EENTM: No nose congestion, No throat pain Respiratory: No cough, No short of breath Cardiovascular: edema, palpitations Gastrointestinal: abdominal pain (diffuse but has metastatic cancer with multiple lesions. History of ascites requiring draining.), diarrhea, nausea, vomiting Genitourinary: see HPI Musculoskeletal: back pain, muscle pain Skin: change in color, rash Psychiatric/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: No Symptoms Reported All Other Systems Reviewed Negative Unless Noted: Yes Past Rstevsg-Jjstan-Gqlzwv Hx Past Med/Social Hx: Reviewed Nursing Past Med/Soc Hx Patient Social History Alcohol Use: Denies Use Recreational Drug Use: No Smoking Status: Never a Smoker 2nd Hand Smoke Exposure: No Recent Foreign Travel: No Contact w/Someone Who Travel: No Recent Infectious Disease Expo: No Recent Hopitalizations: No Immunizations Up To Date Tetanus Booster (TDap): Unknown PED Vaccines UTD: Yes Seasonal Allergies Seasonal Allergies: No Past Medical History Surgeries: Yes (LUMPECTOMY AND MASECTOMY WITH RECONSTRUCTION ON RIGHT) Breast, Section, 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 Respiratory: Yes Asthma Cardiac: Yes Hypertension 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: No 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 History: 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 Genitourinary: Yes (possible left ureteral obstruction) Gastrointestinal: Yes Gastroesophageal Reflux, Gall Bladder Disease Musculoskeletal: Yes (metastases to bone) Endocrine: Yes Hypothyroidsim HEENT: No Cancer: Yes (RECENT METS DIAGNOSIS) Bone, Breast Did You Recieve Any Treatments: Yes What Type of Treatment Did You: Chemotherapy Psychosocial: Yes ADD/ADHD, Sleep Difficulties, Depression Integumentary: No Blood Disorders: No Family Medical History Reviewed Nursing Family Hx No Pertinent Family Hx Physical Exam-Suspected Sepsis Physical Exam Vital Signs Vital Signs - First Documented 05/22/19 05/22/19 15:12 17:08 Temp 37.9 Pulse 133 Resp 18 B/P (MAP) 131/83 (99) Pulse Ox 95 O2 Delivery Room Air Capillary Refill : Less Than 3 Seconds Blood Pressure Mean: 99 Height, Weight, BMI Height: '" Weight: lbs. oz. kg; 22.00 BMI Method: General Appearance: No Apparent Distress, Chronically ill HEENT: PERRL/EOMI; No Pharyngeal Erythema; Other (dry mucous membranes) Neck: Non Tender, Supple Respiratory: Lungs Clear, Normal Breath Sounds Cardiovascular: No Murmur, Tachycardia Gastrointestinal: Non Tender, Soft Extremity: Normal Range of Motion, Non Tender Neurologic/Psychiatric: Alert, Oriented x3 Skin: warm/dry, pallor Focused Exam Lactate Level 05/22/19 15:39: Lactic Acid Level 0.86 Lactic Acid Level Laboratory Tests Test 05/22/19 15:39 Lactic Acid Level 0.86 MMOL/L (0.50-2.00) Progress/Results/Core Measures Suspected Sepsis Recent Fever Within 48 Hours: No Infection Criteria Present: None New/Unexplained Altered Menta: No Sepsis Screen: No Definite Risk SIRS Temperature: Pulse: 133 Respiratory Rate: 18 Laboratory Tests 05/22/19 15:39: White Blood Count 3.8L Blood Pressure 131 /83 Mean: 99 05/22/19 15:39: Lactic Acid Level 0.86 Laboratory Tests 05/22/19 15:39: Creatinine 0.69, INR Comment 1.0, Platelet Count 341, Total Bilirubin 0.4 Results/Orders Lab Results Laboratory Tests Test 05/22/19 15:39 05/22/19 17:31 Range/Units White Blood Count 3.8 L 4.3-11.0 10^3/uL Red Blood Count 3.67 L 4.35-5.85 10^6/uL Hemoglobin 9.6 L 11.5-16.0 G/DL Hematocrit 30 L 35-52 % Mean Corpuscular Volume 82 80-99 FL Mean Corpuscular Hemoglobin 26 25-34 PG Mean Corpuscular Hemoglobin Concent 32 32-36 G/DL Red Cell Distribution Width 19.8 H 10.0-14.5 % Platelet Count 341 130-400 10^3/uL Mean Platelet Volume 9.8 7.4-10.4 FL Neutrophils (%) (Auto) 73 42-75 % Lymphocytes (%) (Auto) 9 L 12-44 % Monocytes (%) (Auto) 18 H 0-12 % Eosinophils (%) (Auto) 0 0-10 % Basophils (%) (Auto) 0 0-10 % Neutrophils # (Auto) 2.8 1.8-7.8 X 10^3 Lymphocytes # (Auto) 0.4 L 1.0-4.0 X 10^3 Monocytes # (Auto) 0.7 0.0-1.0 X 10^3 Eosinophils # (Auto) 0.0 0.0-0.3 10^3/uL Basophils # (Auto) 0.0 0.0-0.1 10^3/uL Prothrombin Time 14.0 12.2-14.7 SEC INR Comment 1.0 0.8-1.4 Activated Partial Thromboplast Time 38 H 24-35 SEC Sodium Level 129 L 135-145 MMOL/L Potassium Level 3.2 L 3.6-5.0 MMOL/L Chloride Level 99 98-107 MMOL/L Carbon Dioxide Level 17 L 21-32 MMOL/L Anion Gap 13 5-14 MMOL/L Blood Urea Nitrogen 5 L 7-18 MG/DL Creatinine 0.69 0.60-1.30 MG/DL Estimat Glomerular Filtration Rate > 60 BUN/Creatinine Ratio 7 Glucose Level 89 70-105 MG/DL Lactic Acid Level 0.86 0.50-2.00 MMOL/L Calcium Level 8.2 L 8.5-10.1 MG/DL Corrected Calcium 9.3 8.5-10.1 MG/DL Total Bilirubin 0.4 0.1-1.0 MG/DL Aspartate Amino Transf (AST/SGOT) 16 5-34 U/L Alanine Aminotransferase (ALT/SGPT) 11 0-55 U/L Alkaline Phosphatase 61 40-136 U/L Total Protein 4.9 L 6.4-8.2 GM/DL Albumin 2.6 L 3.2-4.5 GM/DL Urine Color YELLOW Urine Clarity CLOUDY Urine pH 6.5 5-9 Urine Specific [place] 1.020 1.016-1.022 Urine Protein TRACE H NEGATIVE Urine Glucose (UA) NEGATIVE NEGATIVE Urine Ketones 3+ H NEGATIVE Urine Nitrite POSITIVE H NEGATIVE Urine Bilirubin NEGATIVE NEGATIVE Urine Urobilinogen 0.2 < = 1.0 MG/DL Urine Leukocyte Esterase TRACE H NEGATIVE Urine RBC (Auto) TRACE-I NEGATIVE Urine RBC 0-2 /HPF Urine WBC 25-50 H /HPF Urine Squamous Epithelial Cells NONE /HPF Urine Crystals NONE /LPF Urine Bacteria LARGE H /HPF Urine Casts NONE /LPF Urine Mucus NEGATIVE /LPF Urine Culture Indicated CULTURE PENDING Micro Results Microbiology 05/22/19 Influenza Types A,B Antigen (TYALOR) - Final, Complete My Orders Orders - CADEN HARDIN MD Cbc With Automated Diff (05/22/19 15:22) Comprehensive Metabolic Panel (05/22/19 15:22) Blood Culture (05/22/19 15:22) Sputum Culture (05/22/19 15:22) Urinalysis (05/22/19 15:22) Urine Culture (05/22/19 15:22) Protime With Inr (05/22/19 15:22) Partial Thromboplastin Time (05/22/19 15:22) Chest 1 View, Ap/Pa Only (05/22/19 15:22) Ed Iv/Invasive Line Start (05/22/19 15:22) Vital Signs Adult Sepsis Patie Q15M (05/22/19 15:22) O2 (05/22/19 15:22) Remove Rings In Anticipation O (05/22/19 15:22) Lactic Acid Analyzer (05/22/19 15:22) Lactated Ringers (Lr 1000 Ml Iv Solution (05/22/19 15:22) Influenza A And B Antigens (05/22/19 15:23) Ekg Tracing (05/22/19 15:32) Acetaminophen Tablet (Tylenol Tablet) (05/22/19 15:37) Ns Iv 500 Ml (Sodium Chloride 0.9%) (05/22/19 17:22) Ceftriaxone For Iv Use (Rocephin For I (05/22/19 18:00) Levofloxacin Tablet (Levaquin Tablet) (05/22/19 18:15) Medications Given in ED Current Medications Medications Dose Ordered Sig/Ninfa Route Start Time Stop Time Status Last Admin Dose Admin Lactated Ringer's 1,000 ml @ 0 mls/hr Q0M ONCE IV 05/22/19 15:22 05/22/19 15:23 DC 05/22/19 15:31 0 MLS/HR Sodium Chloride 500 ml @ 0 mls/hr Q0M ONCE IV 05/22/19 17:22 05/22/19 17:23 DC 05/22/19 17:42 0 MLS/HR Vital Signs/I&O 05/22/19 05/22/19 05/22/19 15:12 17:08 17:35 Temp 37.9 37.7 38.4 Pulse 133 116 117 Resp 18 18 18 B/P (MAP) 131/83 (99) 120/79 (93) 134/88 (103) Pulse Ox 95 98 O2 Delivery Room Air Capillary Refill : Less Than 3 Seconds Blood Pressure Mean: 99 Progress Note : Progress Note Seen and evaluated. Sepsis workup initiated including influenza screen. EKG ordered due to tachycardia. LR 1 L bolus and Tylenol 1 g by mouth ordered. Monitor patient. 1723: Patient actually feeling a little bit better. We will get urine now. We will repeat fluid bolus with another 500 of normal saline. I talked with her about different options and she would like to go home if possib le. I did run all of this by Dr. Stone, who is in agreement with our plan. We will await urine and treat if necessary and then likely discharge home. 1800: UTI noted. Levaquin 500 mg by mouth and Rocephin 1 g IV. She does have history of Enterococcus faecalis requiring Levaquin I will double cover on the first dose to ensure appropriate coverage and patient receiving chemotherapy. We will check cultures in 2 days and adjust if needed. This was discussed with the patient and family as well. Discharged home after with return precautions. Patient and family verbalize understanding instructions and agreement with plan. ECG Initial ECG Impression Date: May 22, 2019 Initial ECG Impression Time: 15:27 Initial ECG Rate: 126 Initial ECG Rhythm: S.Tach Comment Sinus tachycardia with right axis. No evidence of ST elevation CA. Nonspecific intraventricular conduction delay. No previous available for comparison. Interpreted by me. Diagnostic Imaging Diagonstic Imaging: Xray Plain Films/CT/US/NM/MRI: chest Comments [facility] [place], [place] NAME: SUZIE MILLER [employer] REC#: [id number] PT STATUS: REG ER : 1960 PHYSICIAN: CADEN HARDIN MD ADMIT DATE: 03/07/20/ER Draft Date of Exam:05/22/19 CHEST 1 VIEW, AP/PA ONLY INDICATION: Fever, metastatic breast cancer. COMPARISON: April 30, 2019 TECHNIQUE: Single radiograph of the chest dated May 22, 2019. FINDINGS: Right-sided Port-A-Cath is again identified and stable. The cardiac silhouette is within normal limits in size. No significant pulmonary vascular congestion. Surgical clips are seen overlying the right axillary region. Calcified granuloma within the left lung base is again noted. The lungs are clear of focal pulmonary opacity. No pleural effusion. No pneumothorax. No acute osseous abnormality. IMPRESSION: No acute cardiopulmonary abnormality with right-sided Port-A-Cath and evidence of chronic granulomatous disease noted. Dictated on workstation # [id number] Dict: 05/22/19 1610 Trans: 05/22/19 1614 [facility] [id number] Interpreted by: DEVON VERA MD Electronically signed by: Departure Impression Primary Impression: Urinary tract infection Qualified Codes: N30.00 - Acute cystitis without hematuria Disposition: HOME, SELF-CARE Condition: Improved Departure-Patient Inst. Decision time for Depature: 18:07 Referrals: FADY HUFFMAN DO (PCP/Family) Primary Care Physician Patient Instructions: Dehydration, Adult (DC), Urinary Tract Infection, Adult (DC) Add. Discharge Instructions: All discharge instructions reviewed with patient and/or family. Voiced understanding. Drink plenty of fluids but taking small sips frequently. Continue home medications as previously prescribed. Take other medications as prescribed. Follow-up with your Dr. in 2-3 days for recheck and further evaluation. Call the cancer center on Friday morning for appointment. Return for worse pain, vomiting, weakness, breathing problems, persistent unrelenting fever or other concerns as needed. Scripts Levofloxacin (Levofloxacin) 750 Mg Tablet 750 MG PO DAILY for 4 Days, #4 TAB 0 Refills Prov: CADEN HARDIN MD 05/22/19 Copy Copies To 1: HUY STONE MD, TIMOTHY D MD May 22, 2019 15:45
[2019-05-22 16:13] LABS: BASOPHILS % (AUTO) 0 % (0-10); EOSINOPHILS % (AUTO) 0 % (0-10); HEMATOCRIT 30 % (35-52); HEMOGLOBIN 9.6 G/DL (11.5-16.0); LYMPHOCYTES # (AUTO) 0.4 X 10^3 (1.0-4.0); LYMPHOCYTES % (AUTO) 9 % (12-44); MEAN CORPUSCULAR HEMOGLOBIN 26 PG (25-34); MEAN CORPUSCULAR HGB CONC 32 G/DL (32-36); MEAN CORPUSCULAR VOLUME 82 FL (80-99); MEAN PLATELET VOLUME 9.8 FL (7.4-10.4); MONOCYTES # (AUTO) 0.7 X 10^3 (0.0-1.0); MONOCYTES % (AUTO) 18 % (0-12); NEUTROPHILS # (AUTO) 2.8 X 10^3 (1.8-7.8); NEUTROPHILS % (AUTO) 73 % (42-75); PLATELET COUNT 341 10^3/uL (130-400); RED CELL DISTRIBUTION WIDTH 19.8 % (10.0-14.5); WHITE BLOOD COUNT 3.8 10^3/uL (4.3-11.0)
--- NOTE | 2019-05-22 16:15 | Diagnostic Imaging Report ---
INDICATION: Fever, metastatic breast cancer. COMPARISON: April 30, 2019 TECHNIQUE: Single radiograph of the chest dated May 22, 2019. FINDINGS: Right-sided Port-A-Cath is again identified and stable. The cardiac silhouette is within normal limits in size. No significant pulmonary vascular congestion. Surgical clips are seen overlying the right axillary region. Calcified granuloma within the left lung base is again noted. The lungs are clear of focal pulmonary opacity. No pleural effusion. No pneumothorax. No acute osseous abnormality. IMPRESSION: No acute cardiopulmonary abnormality with right-sided Port-A-Cath and evidence of chronic granulomatous disease noted. Dictated by: Dictated on workstation # [id number]
[2019-05-22 16:25] LABS: ALANINE AMINOTRANSFERASE 11 U/L (0-55); ALBUMIN 2.6 GM/DL (3.2-4.5); ALKALINE PHOSPHATASE 61 U/L (40-136); BILIRUBIN,TOTAL 0.4 MG/DL (0.1-1.0); BUN/CREATININE RATIO 7; CALCIUM 8.2 MG/DL (8.5-10.1); CARBON DIOXIDE 17 MMOL/L (21-32); CHLORIDE 99 MMOL/L (98-107); CREATININE SERUM 0.69 MG/DL (0.60-1.30); GFR ESTIMATED > 60; GLUCOSE 89 MG/DL (70-105); POTASSIUM 3.2 MMOL/L (3.6-5.0); SODIUM 129 MMOL/L (135-145); TOTAL PROTEIN 4.9 GM/DL (6.4-8.2)
[2019-05-22 17:08] VITALS: BP 120/79
[2019-05-22] MEDS ORDERED: NS IV 500 ML 500 ML IV ONE (17:22)
[2019-05-22 17:35] VITALS: BP 134/88
[2019-05-22 17:40] LABS: BILIRUBIN,URINE NEGATIVE (NEGATIVE); CLARITY,URINE CLOUDY; COLOR,URINE YELLOW; GLUCOSE, URINE (UA) NEGATIVE (NEGATIVE); KETONES,URINE 3+ (NEGATIVE); LEUKOCYTE ESTERASE ,URINE TRACE (NEGATIVE); NITRITE,URINE POSITIVE (NEGATIVE); PH,URINE 6.5 (5-9); PROTEIN,URINE TRACE (NEGATIVE)
[2019-05-22 17:49] LABS: BACTERIA,URINE LARGE /HPF; RBC,URINE 0-2 /HPF; WBC,URINE 25-50 /HPF
[2019-05-22] MEDS ORDERED: LEVOFLOXACIN 500 MG TAB (LEVAQUIN) PO STA (17:57)
[2019-05-22] MEDS ORDERED: cefTRIAXone FOR IV USE 1,000 MG in WATER (STERILE) FOR INJECTION 10 ML IV ONE (18:00)
[2019-05-22] MEDS ORDERED: LEVO750T39 PO (18:09)
[2019-05-22] MEDS ORDERED: LEVOFLOXACIN 750 MG TAB (LEVAQUIN) PO ONE (18:15)
[2019-05-22 18:18] VITALS: BP 122/85
--- OUTSIDE RECORDS SUMMARY | 2019-05-26 01:57 | XMS REPORT ---
Author Author Macey Frank Organization [facility] Address [address] [place], [place] [id number] Care Team Providers Care Remnants Cutter Name Role Phone Home Frank PCP Allergies and Adverse Reactions Name Reaction Notes Compazine aspirin Plan of Treatment Not available. Medications Active Name Start Date Estimated Completion Date SIG Co mments sucralfate 1 gram oral tablet ta ke 1 tablet (1 gram) by oral route 4 times per day on an empty stomach 1 hour before meals and at bedtime omeprazole 40 mg oral capsule,delayed release(DR/EC) take 1 capsule (40 mg) by oral route once daily before a meal in combination with clarithromycin gabapentin 300 mg oral capsule t reagan 1 capsule (300 mg) by oral route 3 times per day Percocet 5-325 mg oral tablet ta ke 1 tablet by oral route every 6 hours as needed Flonase Allergy Relief 50 mcg/actuation nasal spray,suspension spray 1 spray (50 mcg) in each nostril by intranasal route once daily everolimus (antineoplastic) 7.5 mg oral tablet take 1 tablet (7.5 mg) by oral route once daily swallowing whole with a glass of water. Do not crush, chew and/or divide. ondansetron 8 mg oral tablet,disintegrating take 1 tablet (8 mg) and place on top of the tongue where it will dissolve, then swallow by oral route 30 minutes before the start of chemotherapy, then 1 tablet (8 mg) eight hours after the first dose Adderall 30 mg oral tablet take 1 tablet (30 mg) by oral route once daily before breakfast zolpidem 12.5 mg oral tablet,ext release multiphase take 1 tablet (12.5 mg) by oral route once daily at bedtime promethazine 25 mg oral tablet t reagan 1 tablet (25 mg) by oral route once daily at bedtime fluoxetine 20 mg oral capsule ta ke 1 capsule (20 mg) by oral route once daily in the evening levothyroxine 25 mcg oral tablet take 1 tablet (25 mcg) by oral route once daily Discontinued Name Start Date Discontinued Date SIG Comments diazepam 10 mg oral tablet 05/25/2019 take 1 tablet (10 mg) by oral route 2 times per day tramadol 50 mg oral tablet 05/25/2019 take 1 tablet (50 mg) by oral route every 6 hours as needed amlodipine 5 mg oral tablet 05/25/2019 take 1 tablet (5 mg) by oral route once daily Problem List Not available. Vital Signs Date Time BP-Sys(mm[Hg] BP-Naila(mm[Hg]) HR(bpm) RR(rpm) Temp WT HT HC BMI BSA BMI Percentile O2 Sat(%) 04/15/2019 1:59:00 PM 130 mm[Hg] 88 mm[Hg] 110 {beats}/min 18 rpm 97.9 F 160 lbs 66 in 25.8244 kg/m2 1.8384 m2 99 % Social History Name Description Comments Tobacco Never smoker History of Procedures Not available. Results Summary Not available. History Of Immunizations Not available. History of Past Illness Name Date of Onset Comments Hypertension Hypothyroidism Breast cancer in female Bone cancer Malignant peritoneal local recurrence Ureteral obstruction Apr 15 2019 2:01PM UTI (urinary tract infection) May 25 2019 10:01AM Hydronephrosis May 25 2019 10:01AM Breast cancer May 25 2019 10:01AM Payers Insurance Name Company Name Plan Name Plan Number Policy Number [place] Group Number Start Date Medicare Part B [employer] Of [place] [id number] N/A [facility] [id number] N/A History of Encounters Visit Date Visit Type Provider 05/25/2019 Office visit Home Frank MD 04/15/2019 Office visit EITAN KRUGER AGRICULTURAL TECHNICAL OFFICER
--- OUTSIDE RECORDS SUMMARY | 2019-05-26 01:58 | XMS REPORT | Continuity of Care Document ---
Demographics Preferred Language Unknown Marital Status Unknown Mormon Affiliation Unknown Race Unknown Ethnic Group Unknown Author Organization Unknown Address Unknown Phone Unavailable Allergies Active Description Code Type Severity Reaction Onset Reported/Identified Relationship to Patient Clinical Status Yes ASPIRIN [id number] DRUG N/A N/A Yes COMPAZINE [id number] DRUG N/A N/A Yes PROCHLORPERAZINE [id number] DRUG N/A N/A Yes aspirin [id number] Drug Allergy Unknown N/A 01/13/2018 Yes prochlorperazine [id number] Drug Allergy Unknown N/A 01/13/2018 Yes morphine [id number] Drug Allergy Moderate Itching 04/18/2019 Medications There is no data. 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 02/13/1055 HUY STONE MD Ot Z79.899 OTHER PRISON (CURRENT) DRUG THERAPY 02/13/1055 HUY STONE MD [...] 02/11/2018 HUY STONE MD Ot Z79.899 OTHER CLINICAL TEAM LEAD (CURRENT) DRUG THERAPY 02/11/2018 HUY STONE MD [...] 02/17/2018 HUY STONE MD Ot Z79.899 OTHER CLINICAL TEAM LEAD (CURRENT) DRUG THERAPY 02/17/2018 HUY STONE MD [...] 03/02/2018 HUY STONE MD Ot Z79.899 OTHER PRISON (CURRENT) DRUG THERAPY 03/02/2018 HUY STONE MD [...] 03/02/2018 HUY STONE MD Ot Z79.899 OTHER CLINICAL TEAM LEAD (CURRENT) DRUG THERAPY 03/02/2018 HUY STONE MD [...] 03/03/2018 HUY STONE MD Ot Z79.899 OTHER CLINICAL TEAM LEAD (CURRENT) DRUG THERAPY 03/03/2018 HUY STONE MD Ot Z90. 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 11 ACQUIRED ABSENCE OF RIGHT BREAST AND NIP 04/13/2018 HUY STONE MD, Ot Z90. 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 04/14/2018 HUY STONE MD Ot Z79.899 OTHER PRISON (CURRENT) DRUG THERAPY 04/14/2018 HUY STONE MD [...] 05/31/2018 HUY STONE MD Ot Z79.899 OTHER CLINICAL TEAM LEAD (CURRENT) DRUG THERAPY 05/31/2018 HUY STONE MD [...] 06/01/2018 HUY STONE MD, Ot Z79.899 OTHER PRISON (CURRENT) DRUG THERAPY 06/01/2018 HUY STONE MD [...] 06/03/2018 HUY STONE MD Ot Z79.899 OTHER CLINICAL TEAM LEAD (CURRENT) DRUG THERAPY 06/03/2018 HUY STONE MD [...] 06/04/2018 HUY STONE MD, Ot Z79.899 OTHER PRISON (CURRENT) DRUG THERAPY 06/04/2018 HUY STONE MD, [...] SECONDARY MALIGNANT NEOPLASM OF BONE 06/06/2018 HUY STONE MD Ot D64. 9 ANEMIA, UNSPECIFIED 06/06/2018 [...] 06/06/2018 HUY STONE MD Ot Z79.899 OTHER PRISON (CURRENT) DRUG THERAPY 06/06/2018 HUY STONE MD [...] 07/08/2018 HUY STONE MD Ot Z79.899 OTHER PRISON (CURRENT) DRUG THERAPY 07/08/2018 HUY STONE MD [...] 07/14/2018 HUY STONE MD Ot Z79.899 OTHER CLINICAL TEAM LEAD (CURRENT) DRUG THERAPY 07/14/2018 HUY STONE MD [...] 08/05/2018 HUY STONE MD Ot Z79.899 OTHER CLINICAL TEAM LEAD (CURRENT) DRUG THERAPY 08/05/2018 HUY STONE MD [...] 08/05/2018 HUY STONE MD Ot Z79.899 OTHER PRISON (CURRENT) DRUG THERAPY 08/05/2018 HUY STONE MD [...] 08/17/2018 HUY STONE MD Ot Z79.899 OTHER PRISON (CURRENT) DRUG THERAPY 08/17/2018 HUY STONE MD [...] 09/01/2018 HUY STONE MD Ot Z79.899 OTHER PRISON (CURRENT) DRUG THERAPY 09/01/2018 HUY STONE MD [...] 09/03/2018 ERIC BRADY MD Ot Z79.899 OTHER CLINICAL TEAM LEAD (CURRENT) DRUG THERAPY 09/03/2018 ERIC BRADY MD [...] 09/03/2018 ERIC BRADY MD Ot Z79.899 OTHER PRISON (CURRENT) DRUG THERAPY 09/03/2018 ERIC BRADY MD [...] 09/03/2018 HUY STONE MD Ot Z79.899 OTHER PRISON (CURRENT) DRUG THERAPY 09/03/2018 HUY STONE MD [...] 09/04/2018 HUY STONE MD Ot Z79.899 OTHER CLINICAL TEAM LEAD (CURRENT) DRUG THERAPY 09/04/2018 HUY STONE MD [...] 09/23/2018 HUY STONE MD Ot Z79.899 OTHER PRISON (CURRENT) DRUG THERAPY 09/23/2018 HUY STONE MD [...] 10/16/2018 HUY STONE MD Ot Z79.899 OTHER PRISON (CURRENT) DRUG THERAPY 10/16/2018 HUY STONE MD Ot Z90. 11 ACQUIRED ABSENCE OF RIGHT BREAST AND NIP 10/16/2018 HUY STONE MD Ot Z90. 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 0 ENCOUNTER FOR ANTINEOPLASTIC RADIATION T 10/20/2018 HUY STONE MD Ot Z79.899 OTHER CLINICAL TEAM LEAD (CURRENT) DRUG THERAPY 10/20/2018 HUY STONE MD [...] 12/02/2018 HUY STONE MD Ot Z79.899 OTHER CLINICAL TEAM LEAD (CURRENT) DRUG THERAPY 12/02/2018 UHY STONE MD Ot Z90. 11 ACQUIRED ABSENCE [...] 12/03/2018 HUY STONE MD Ot Z79.899 OTHER CLINICAL TEAM LEAD (CURRENT) DRUG THERAPY 12/03/2018 HUY STONE MD [...] 12/09/2018 HUY STONE MD Ot Z79.899 OTHER CLINICAL TEAM LEAD (CURRENT) DRUG THERAPY 12/09/2018 HUY STONE MD [...] 12/24/2018 HUY STONE MD Ot Z79.899 OTHER CLINICAL TEAM LEAD (CURRENT) DRUG THERAPY 12/24/2018 HUY STONE MD [...] 01/11/2019 HUY STONE MD Ot Z79.899 OTHER CLINICAL TEAM LEAD (CURRENT) DRUG THERAPY 01/11/2019 HUY STONE MD [...] 03/09/2019 HUY STONE MD Ot Z79.899 OTHER CLINICAL TEAM LEAD (CURRENT) DRUG THERAPY 03/09/2019 HUY STONE MD Ot Z90. 11 ACQUIRED [...] 03/11/2019 HUY STONE MD Ot Z79.899 OTHER CLINICAL TEAM LEAD (CURRENT) DRUG THERAPY 03/11/2019 HUY STONE MD [...] 03/22/2019 HUY STONE MD Ot Z79.899 OTHER PRISON (CURRENT) DRUG THERAPY 03/22/2019 HUY STONE MD [...] 03/22/2019 HUY STONE MD Ot Z79.899 OTHER PRISON (CURRENT) DRUG THERAPY 03/22/2019 HUY STONE MD Ot Z90. 11 ACQUIRED ABSENCE OF RIGHT BREAST AND NIP 03/22/2019 HUY STONE MD Ot Z90. 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 03/23/2019 HUY STONE MD Ot Z79.899 OTHER PRISON (CURRENT) DRUG THERAPY 03/23/2019 HUY STONE MD [...] 2019 HUY STONE MD Ot Z79.899 OTHER CLINICAL TEAM LEAD (CURRENT) DRUG THERAPY 2019 HUY STONE MD [...] 04/12/2019 HUY STONE MD Ot Z79.899 OTHER CLINICAL TEAM LEAD (CURRENT) DRUG THERAPY 04/12/2019 HUY STONE MD [...] 04/12/2019 HUY STONE MD Ot Z79.899 OTHER PRISON (CURRENT) DRUG THERAPY 04/12/2019 HUY STONE MD, [...] 04/13/2019 HUY STONE MD Ot Z79.899 OTHER CLINICAL TEAM LEAD (CURRENT) DRUG THERAPY 04/13/2019 HUY STONE MD, [...] 04/14/2019 HUY STONE MD Ot Z79.899 OTHER PRISON (CURRENT) DRUG THERAPY 04/14/2019 HUY STONE MD, [...] 04/14/2019 HUY STONE MD Ot Z79.899 OTHER CLINICAL TEAM LEAD (CURRENT) DRUG THERAPY 04/14/2019 HUY STONE MD, [...] OTHER ASCITES 04/14/2019 HUY STONE MD, Ot 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 8 OTHER ASCITES 04/17/2019 TICO AGLAN MD Ot K76.89 OTHER SPECIFIED DISEASES OF [...] 04/17/2019 HUY STONE MD, Ot Z79.899 OTHER CLINICAL TEAM LEAD (CURRENT) DRUG THERAPY 04/17/2019 HUY STONE MD, [...] 04/19/2019 HUY STONE MD, Ot Z79.899 OTHER CLINICAL TEAM LEAD (CURRENT) DRUG THERAPY 04/19/2019 HUY STONE MD, [...] 04/21/2019 HUY STONE MD Ot Z79.899 OTHER CLINICAL TEAM LEAD (CURRENT) DRUG THERAPY 04/21/2019 HUY STONE MD, [...] SECONDARY MALIGNANT NEOPLASM OF BONE 04/21/2019 HUY SOTNE MD Ot R51 HEADACHE 04/21/2019 HUY STONE [...] 04/21/2019 HUY STONE MD, Ot Z79.899 OTHER PRISON (CURRENT) DRUG THERAPY 04/21/2019 HUY STONE MD, [...] 04/21/2019 HUY STONE MD Ot Z79.899 OTHER CLINICAL TEAM LEAD (CURRENT) DRUG THERAPY 04/21/2019 HUY STONE MD, [...] 04/21/2019 HUY STONE MD Ot Z79.899 OTHER PRISON (CURRENT) DRUG THERAPY 04/21/2019 HUY STONE MD, [...] 04/21/2019 HUY STONE MD, Ot Z79.899 OTHER PRISON (CURRENT) DRUG THERAPY 04/21/2019 HUY STONE MD, [...] 04/22/2019 HUY STONE MD, Ot Z79.899 OTHER PRISON (CURRENT) DRUG THERAPY 04/22/2019 HUY STONE MD, [...] R18. 8 OTHER ASCITES 04/22/2019 TICO GALAN MD Ot K76.89 OTHER SPECIFIED DISEASES OF LIVER 04/22/2019 TICO GALAN MD, Ot K82.8 OTHER SPECIFIED DISEASES OF GALLBLADDER 04/22/2019 NICKIE PERDOMO DO Song Ot R18. 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 1 AGRANULOCYTOSIS SECONDARY TO CANCER CHEM 04/28/2019 HUY STONE MD, Ot D72.829 ELEVATED WHITE BLOOD CELL COUNT, UNSPECI 04/28/2019 HUY STONE MD, Ot E87. 1 HYPO-OSMOLALITY AND HYPONATREMIA 04/28/2019 HUY STONE MD, Ot K21. 9 GASTRO-ESOPHAGEAL REFLUX DISEASE WITHOUT 04/28/2019 HUY STONE MD, Ot K56.609 UNSP INTESTNL OBST, UNSP TO PARTIAL V 04/28/2019 HUY STONE MD, Ot N13. 1 HYDRONEPHROSIS W URETERAL STRICTURE, NEC 04/28/2019 HUY STONE MD, Ot N39. 0 URINARY TRACT INFECTION, SITE NOT SPECIF 04/28/2019 HUY STONE MD, Ot R11. 2 NAUSEA WITH VOMITING, UNSPECIFIED 04/28/2019 HUY STONE MD, Ot Z85. 3 PERSONAL HISTORY OF MALIGNANT NEOPLASM O 04/28/2019 HUY STONE MD Ot Z87. 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 8 OTHER ASCITES 04/29/2019 TICO GALAN MD Ot K76.89 OTHER SPECIFIED DISEASES OF LIVER 04/29/2019 TICO GALAN MD Ot K82.8 OTHER SPECIFIED DISEASES OF GALLBLADDER 04/29/2019 TICO GALAN MD Ot R18.8 OTHER ASCITES 04/29/2019 PERDOMO DO, NICKIE D Ot R18. 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 1 HYDRONEPHROSIS W URETERAL STRICTURE, NEC 04/29/2019 HUY STONE MD, Ot R11. 2 NAUSEA WITH VOMITING, UNSPECIFIED 04/29/2019 HUY STONE MD, Ot Z85. 3 PERSONAL HISTORY OF MALIGNANT NEOPLASM O 04/29/2019 HUY STONE MD, Ot Z87. 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 8 OTHER ASCITES 04/29/2019 TICO GALAN MD Ot K76.89 OTHER SPECIFIED DISEASES OF LIVER 04/29/2019 TICO GALAN MD Ot K82.8 OTHER SPECIFIED DISEASES OF GALLBLADDER 04/29/2019 TICO GALAN MD Ot R18.8 OTHER ASCITES 04/29/2019 PERDOMO DO, NICKIE D Ot R18. 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 1 HYDRONEPHROSIS W URETERAL STRICTURE, NEC 04/29/2019 HUY STONE MD, Ot R11. 2 NAUSEA WITH VOMITING, UNSPECIFIED 04/29/2019 HUY STONE MD, Ot Z85. 3 PERSONAL HISTORY OF MALIGNANT NEOPLASM O 04/29/2019 HUY STONE MD, Ot Z87. 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 1 AGRANULOCYTOSIS SECONDARY TO CANCER CHEM 04/29/2019 HUY STONE MD, Ot D72.829 ELEVATED WHITE BLOOD CELL COUNT, UNSPECI 04/29/2019 HUY STONE MD, Ot E87. 1 HYPO-OSMOLALITY AND HYPONATREMIA 04/29/2019 HUY STONE MD, Ot K21. 9 GASTRO-ESOPHAGEAL REFLUX DISEASE WITHOUT 04/29/2019 HUY STONE MD, Ot K56.609 UNSP INTESTNL OBST, UNSP TO PARTIAL V 04/29/2019 HUY STONE MD, Ot N13. 1 HYDRONEPHROSIS W URETERAL STRICTURE, NEC 04/29/2019 HUY STONE MD, Ot N39. 0 URINARY TRACT INFECTION, SITE NOT SPECIF 04/29/2019 HUY STONE MD, Ot R11. 2 NAUSEA WITH VOMITING, UNSPECIFIED 04/29/2019 HUY STONE MD, Ot Z85. 3 PERSONAL HISTORY OF MALIGNANT NEOPLASM O 04/29/2019 HUY STONE MD, Ot Z87. 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 04/30/2019 HUY STONE MD, Ot Z79.899 OTHER CLINICAL TEAM LEAD (CURRENT) DRUG THERAPY 04/30/2019 HUY STONE MD, Ot Z90. 11 ACQUIRED ABSENCE OF RIGHT BREAST AND NIP 04/30/2019 HUY STONE MD, Ot Z90. 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 04/30/2019 HUY STONE MD Ot R18. 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 04/30/2019 HUY STONE MD Ot R18. 8 OTHER ASCITES 04/30/2019 ANGELIA FRAUSTO, TICO Ladd Ot K76.89 OTHER SPECIFIED DISEASES OF LIVER 04/30/2019 TICO GALAN MD Ot K82.8 OTHER SPECIFIED DISEASES OF GALLBLADDER 04/30/2019 ANGELIA FRAUSTO, TICO Ladd Ot R18.8 OTHER ASCITES 04/30/2019 NICKIE PERDOMO DO Ot R18. 8 OTHER ASCITES 04/30/2019 WILFREDO PAREDES Ot 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 04/30/2019 WILFREDO PAREDES Ot C79.51 SECONDARY MALIGNANT NEOPLASM OF BONE 04/30/2019 WILFREDO PAREDES Ot E03.9 HYPOTHYROIDISM, UNSPECIFIED 04/30/2019 WILFREDO PAREDES Ot E86.0 DEHYDRATION 04/30/2019 WILFREDO PAREDES Ot F32.9 MAJOR DEPRESSIVE DISORDER, SINGLE EPISOD 04/30/2019 WILFREDO PAREDES Ot F90.9 ATTENTION-DEFICIT HYPERACTIVITY DISORDER 04/30/2019 WILFREDO PAREDES Ot G47.9 SLEEP DISORDER, UNSPECIFIED 04/30/2019 WILFREDO PAREDES Ot G62.9 POLYNEUROPATHY, UNSPECIFIED 04/30/2019 WILFREDO PAREDES Ot G89.3 NEOPLASM RELATED PAIN (ACUTE) (CHRONIC) 04/30/2019 WILFREDO PAREDES Ot I10 ESSENTIAL (PRIMARY) HYPERTENSION 04/30/2019 WILFREDO PAREDES Ot J45.909 UNSPECIFIED ASTHMA, UNCOMPLICATED 04/30/2019 WILFREDO PAREDES Ot K21.9 GASTRO-ESOPHAGEAL REFLUX DISEASE WITHOUT 04/30/2019 WILFREDO PAREDES Ot N13.1 HYDRONEPHROSIS W URETERAL STRICTURE, NEC 04/30/2019 WILFREDO PAREDES Ot R11.2 NAUSEA WITH VOMITING, UNSPECIFIED 04/30/2019 WILFREDO PAREDES Ot R18.0 MALIGNANT ASCITES 04/30/2019 WILFREDO PAREDES Ot T45.1X5 A ADVERSE EFFECT OF ANTINEOPLASTIC AND IMM 04/30/2019 WILFREDO PAREDES Ot Z85.3 PERSONAL HISTORY OF MALIGNANT NEOPLASM O 04/30/2019 WILFREDO PAREDES Ot 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 04/30/2019 WILFREDO PAREDES Ot C79.51 SECONDARY MALIGNANT NEOPLASM OF BONE 04/30/2019 WILFREDO PAREDES Ot E03.9 HYPOTHYROIDISM, UNSPECIFIED 04/30/2019 WILFREDO PAREDES Ot E86.0 DEHYDRATION 04/30/2019 WILFREDO PAREDES Ot F32.9 MAJOR DEPRESSIVE DISORDER, SINGLE EPISOD 04/30/2019 WILFREDO PAREDES Desirae Ot F90.9 ATTENTION-DEFICIT HYPERACTIVITY DISORDER 04/30/2019 LENA WILFREDO Desirae Ot G47.9 SLEEP DISORDER, UNSPECIFIED 04/30/2019 LENA WILFREDO Desirae Ot G62.9 POLYNEUROPATHY, UNSPECIFIED 04/30/2019 LENA WILFREDO Desirae Ot G89.3 NEOPLASM RELATED PAIN (ACUTE) (CHRONIC) 04/30/2019 LENAWILFREDO Ot I10 ESSENTIAL (PRIMARY) HYPERTENSION 04/30/2019 LENAAMYGET Desirae Ot J45.909 UNSPECIFIED ASTHMA, UNCOMPLICATED 04/30/2019 LENA WILFREDO Desirae Ot K21.9 GASTRO-ESOPHAGEAL REFLUX DISEASE WITHOUT 04/30/2019 LENAAMYGET Desirae Ot N13.1 HYDRONEPHROSIS W URETERAL STRICTURE, NEC 04/30/2019 LENAWILFREDO Ot R11.2 NAUSEA WITH VOMITING, UNSPECIFIED 04/30/2019 LENAAMYGET Desirae Ot R18.0 MALIGNANT ASCITES 04/30/2019 LENAAMYGET Desirae Ot T45.1X5 A ADVERSE EFFECT OF ANTINEOPLASTIC AND IMM 04/30/2019 LENA WILFREDO Desirae Ot Z85.3 PERSONAL HISTORY OF MALIGNANT NEOPLASM O 05/04/2019 BERTHA FRAUSTO, HUY Ot C78. 6 SECONDARY MALIGNANT NEOPLASM OF RETROPER 05/04/2019 BERTHA FRAUSTO, HUY Ot 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 05/04/2019 BERTHA FRAUSTO, HUY Ot D64. 9 ANEMIA, UNSPECIFIED 05/04/2019 BERTHA FRAUSTO, HUY Ot D70. 9 NEUTROPENIA, UNSPECIFIED 05/04/2019 BERTHA FRAUSTO, HUY Ot E03. 9 HYPOTHYROIDISM, UNSPECIFIED 05/04/2019 BERTHA FRAUSTO, HUY Ot E87. 1 HYPO-OSMOLALITY AND HYPONATREMIA 05/04/2019 BERTHA FRAUSTO, HUY Ot F32. 9 MAJOR DEPRESSIVE DISORDER, SINGLE EPISOD 05/04/2019 BERTHA FRAUSTO, HUY Ot F90. 9 ATTENTION-DEFICIT HYPERACTIVITY DISORDER 05/04/2019 BERTHA FRAUSTO, HUY Ot G47. 9 SLEEP DISORDER, UNSPECIFIED 05/04/2019 BERTHA FRAUSTO, HUY Ot G62. 9 POLYNEUROPATHY, UNSPECIFIED 05/04/2019 HUY STONE MD, Ot I10 ESSENTIAL (PRIMARY) HYPERTENSION 05/04/2019 HUY STONE MD, Ot I95. 9 HYPOTENSION, UNSPECIFIED 05/04/2019 HUY STONE MD, Ot J45.909 UNSPECIFIED ASTHMA, UNCOMPLICATED 05/04/2019 HUY STONE MD, Ot K21. 9 GASTRO-ESOPHAGEAL REFLUX DISEASE WITHOUT 05/04/2019 HUY STONE MD, Ot K56.699 OTHER INTESTNL OBST UNSP TO PARTIAL V 05/04/2019 HUY STONE MD, Ot N13. 6 PYONEPHROSIS 05/04/2019 HUY STONE MD, Ot N39. 0 URINARY TRACT INFECTION, SITE NOT SPECIF 05/04/2019 HUY STONE MD, Ot R00. 0 TACHYCARDIA, UNSPECIFIED 05/04/2019 HUY STONE MD, Ot R18. 8 OTHER ASCITES 05/04/2019 HUY STONE MD, Ot R19. 7 DIARRHEA, UNSPECIFIED 05/04/2019 HUY STONE MD, Ot R50. 81 FEVER PRESENTING WITH CONDITIONS CLASSIF 05/04/2019 HUY STONE MD, Ot T45.1X5A ADVERSE EFFECT OF ANTINEOPLASTIC AND IMM 05/04/2019 HUY STONE MD, Ot Z79.899 OTHER PRISON (CURRENT) DRUG THERAPY 05/04/2019 HUY STONE MD, Ot Z85. 3 PERSONAL HISTORY OF MALIGNANT NEOPLASM O 05/04/2019 HUY STONE MD, Ot B95. 2 ENTEROCOCCUS THE CAUSE OF DISEASES CL 05/04/2019 HUY STONE MD, Ot C78. 6 SECONDARY MALIGNANT NEOPLASM OF RETROPER 05/04/2019 HUY STONE MD, Ot 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 05/04/2019 HUY STONE MD, Ot D64. 81 ANEMIA DUE TO ANTINEOPLASTIC CHEMOTHERAP 05/04/2019 HUY STONE MD, Ot D64. 9 ANEMIA, UNSPECIFIED 05/04/2019 HUY STONE MD, Ot D70. 9 NEUTROPENIA, UNSPECIFIED 05/04/2019 HUY STONE MD, Ot E03. 9 HYPOTHYROIDISM, UNSPECIFIED 05/04/2019 HUY STONE MD, Ot E87. 1 HYPO-OSMOLALITY AND HYPONATREMIA 05/04/2019 HUY STONE MD, Ot F32. 9 MAJOR DEPRESSIVE DISORDER, SINGLE EPISOD 05/04/2019 BERTHA FRAUSTO, HUY Goodwin F90. 9 ATTENTION-DEFICIT HYPERACTIVITY DISORDER 05/04/2019 HUY STONE MD, Ot G47. 9 SLEEP DISORDER, UNSPECIFIED 05/04/2019 HUY STONE MD, Ot G62. 9 POLYNEUROPATHY, UNSPECIFIED 05/04/2019 HUY STONE MD, Ot I10 ESSENTIAL (PRIMARY) HYPERTENSION 05/04/2019 HUY STONE MD, Ot I95. 9 HYPOTENSION, UNSPECIFIED 05/04/2019 HYU STONE MD, Ot J45.909 UNSPECIFIED ASTHMA, UNCOMPLICATED 05/04/2019 HUY STONE MD, Ot K21. 9 GASTRO-ESOPHAGEAL REFLUX DISEASE WITHOUT 05/04/2019 HUY STONE MD, Ot K52. 1 TOXIC GASTROENTERITIS AND COLITIS 05/04/2019 HUY STONE MD, Ot K56.699 OTHER INTESTNL OBST UNSP TO PARTIAL V 05/04/2019 HUY STONE MD, Ot L27. 0 GEN SKIN ERUPTION DUE TO DRUGS AND MEDS 05/04/2019 HUY STONE MD, Ot N13. 6 PYONEPHROSIS 05/04/2019 HUY STONE MD, Ot N39. 0 URINARY TRACT INFECTION, SITE NOT SPECIF 05/04/2019 HUY STONE MD, Ot R00. 0 TACHYCARDIA, UNSPECIFIED 05/04/2019 HUY STONE MD, Ot R18. 8 OTHER ASCITES 05/04/2019 HUY STONE MD, Ot R19. 7 DIARRHEA, UNSPECIFIED 05/04/2019 HUY STONE MD, Ot R50. 81 FEVER PRESENTING WITH CONDITIONS CLASSIF 05/04/2019 HUY STONE MD, Ot T45.1X5A ADVERSE EFFECT OF ANTINEOPLASTIC AND IMM 05/04/2019 HUY STONE MD, Ot Z79.899 OTHER PRISON (CURRENT) DRUG THERAPY 05/04/2019 HUY STONE MD, Ot Z85. 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 8 OTHER ASCITES 05/05/2019 TICO GALAN MD Ot K76.89 OTHER SPECIFIED DISEASES OF LIVER 05/05/2019 TICO GALAN MD Ot K82.8 OTHER SPECIFIED DISEASES OF GALLBLADDER 05/05/2019 TICO GALAN MD Ot R18.8 OTHER ASCITES 05/05/2019 LEANNE DONICKIE D Ot R18. 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 8 OTHER ASCITES 05/05/2019 TICO GALAN MD Ot K76.89 OTHER SPECIFIED DISEASES OF LIVER 05/05/2019 TICO GALAN MD Ot K82.8 OTHER SPECIFIED DISEASES OF GALLBLADDER 05/05/2019 TICO GALAN MD T Ot R18.8 OTHER ASCITES 05/05/2019 PERDOMO DO, NICKIE D Ot R18. 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 8 OTHER ASCITES 05/06/2019 TICO GALAN MD, Ot K76.89 OTHER SPECIFIED DISEASES OF LIVER 05/06/2019 TICO GALAN MD Ot K82.8 OTHER SPECIFIED DISEASES OF GALLBLADDER 05/06/2019 TICO GALAN MD, Ot R18.8 OTHER ASCITES 05/06/2019 HUY STONE MD, Ot C48. 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 81 ANEMIA DUE TO ANTINEOPLASTIC CHEMOTHERAP 05/06/2019 HUY STONE MD, Ot E87. 1 HYPO-OSMOLALITY AND HYPONATREMIA 05/06/2019 HUY STONE MD, Ot K56.609 UNSP INTESTNL OBST, UNSP TO PARTIAL V 05/06/2019 HUY STONE MD, Ot L27. 0 GEN SKIN ERUPTION DUE TO DRUGS AND MEDS 05/06/2019 HUY STONE MD, Ot N13. 30 UNSPECIFIED HYDRONEPHROSIS 05/06/2019 HUY STONE MD, Ot N39. 0 URINARY TRACT INFECTION, SITE NOT SPECIF 05/06/2019 HUY STONE MD, Ot R18. 8 OTHER ASCITES 05/06/2019 HUY STONE MD, Ot T45.1X5A ADVERSE EFFECT OF ANTINEOPLASTIC AND IMM 05/06/2019 HUY STONE MD, Ot Z79.891 PRISON (CURRENT) USE OF OPIATE ANALGE 05/06/2019 HUY STONE MD, Ot Z79.899 OTHER PRISON (CURRENT) DRUG THERAPY 05/06/2019 HUY STONE MD, Ot Z85. 3 PERSONAL HISTORY OF MALIGNANT NEOPLASM O 05/06/2019 HUY STONE MD, Ot Z88. 5 ALLERGY STATUS TO NARCOTIC AGENT STATUS 05/06/2019 HUY STONE MD, Ot Z88. 6 ALLERGY STATUS TO ANALGESIC AGENT STATUS 05/06/2019 HUY STONE MD, Ot Z88. 8 ALLERGY STATUS TO OTH DRUG/MEDS/BIOL SUB 05/06/2019 HUY STONE MD, Ot Z92. 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 05/10/2019 HUY STONE MD, Ot R18. 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 8 OTHER ASCITES 05/10/2019 TICO GALAN MD Ot K76.89 OTHER SPECIFIED DISEASES OF LIVER 05/10/2019 TICO GALAN MD Ot K82.8 OTHER SPECIFIED DISEASES OF GALLBLADDER 05/10/2019 TICO GALAN MD Ot R18.8 OTHER ASCITES 05/10/2019 NICKIE PERDOMO DO Ot R18. 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 8 OTHER ASCITES 05/10/2019 TICO GALAN MD Ot K76.89 OTHER SPECIFIED DISEASES OF LIVER 05/10/2019 TICO GALAN MD Ot K82.8 OTHER SPECIFIED DISEASES OF GALLBLADDER 05/10/2019 TICO GALAN MD Ot R18.8 OTHER ASCITES 05/10/2019 LEANNE DONICKIE Ot R18. 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 05/11/2019 HUY STONE MD Ot R18. 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 05/11/2019 HUY STONE MD Ot R18. 8 OTHER ASCITES 05/11/2019 TICO GAALN MD Ot K76.89 OTHER SPECIFIED DISEASES OF LIVER 05/11/2019 TICO GALAN MD Ot K82.8 OTHER SPECIFIED DISEASES OF GALLBLADDER 05/11/2019 TICO GALAN MD Ot R18.8 OTHER ASCITES 05/11/2019 NICKIE PERDOMO DO Ot R18. 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 05/11/2019 HUY STONE MD, Ot Z79.899 OTHER PRISON (CURRENT) DRUG THERAPY 05/11/2019 HUY STONE MD, Ot Z90. 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 05/11/2019 HUY STONE MD, Ot R18. 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 05/11/2019 HUY STONE MD Ot R18. 8 OTHER ASCITES 05/11/2019 TICO GALAN MD Ot K76.89 OTHER SPECIFIED DISEASES OF LIVER 05/11/2019 TICO GALAN MD Ot K82.8 OTHER SPECIFIED DISEASES OF GALLBLADDER 05/11/2019 TICO GALAN MD Ot R18.8 OTHER ASCITES 05/11/2019 PERDOMO DO, NICKIE D Ot R18. 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 05/11/2019 HUY STONE MD Ot Z79.899 OTHER CLINICAL TEAM LEAD (CURRENT) DRUG THERAPY 05/11/2019 HUY STONE MD, Ot Z90. 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 05/11/2019 HUY STONE MD, Ot R18. 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 05/11/2019 HUY STONE MD Ot R18. 8 OTHER ASCITES 05/11/2019 TICO GALAN MD Ot K76.89 OTHER SPECIFIED DISEASES OF LIVER 05/11/2019 TICO GALAN MD Ot K82.8 OTHER SPECIFIED DISEASES OF GALLBLADDER 05/11/2019 TICO GALAN MD Ot R18.8 OTHER ASCITES 05/11/2019 PERDOMO DO, NICKIE D Ot R18. 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 05/11/2019 HUY STONE MD, Ot Z79.899 OTHER CLINICAL TEAM LEAD (CURRENT) DRUG THERAPY 05/11/2019 HUY STONE MD, Ot Z90. 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 79 ACQUIRED ABSENCE OF OTHER GENITAL ORGAN( 05/13/2019 TICO GALAN MD Ot K76.89 OTHER SPECIFIED DISEASES OF LIVER 05/13/2019 TICO GALAN MD Ot K82.8 OTHER SPECIFIED DISEASES OF GALLBLADDER 05/13/2019 TICO GALAN MD Ot R18.8 OTHER ASCITES 05/17/2019 HUY STONE MD, Ot C50.311 MALIG NEOPLM OF LOWER-INNER QUADRANT OF 05/17/2019 HUY STONE MD, Ot 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 05/17/2019 HUY STONE MD Ot K63. 89 OTHER SPECIFIED DISEASES OF INTESTINE 05/17/2019 HUY STONE MD, Ot R18. 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 8 OTHER ASCITES 05/20/2019 TICO GALAN MD Ot K76.89 OTHER SPECIFIED DISEASES OF LIVER 05/20/2019 TICO GALAN MD Ot K82.8 OTHER SPECIFIED DISEASES OF GALLBLADDER 05/20/2019 TICO GALAN MD Ot R18.8 OTHER ASCITES Procedures Code Description Performed By Per formed On [id number] DR GRANADOS OF PERITONEAL CAVITY, PERCUTANE 04/19/2019 [id number] IN SERTION OF INFUSION DEV INTO SUP VENA 04/20/2019 [id number] IN SERT OF TUNNEL VAD INTO CHEST [...] Bacteria identification in wound by culture NG NRG Body fluid cell count - 04/14/19 14:09 Specimen source identification of body fluid PERIT ON NRG Evaluation of color of body fluid PALE YELLOW NRG Determination of appearance of body fluid MOD CLDY NRG Body fluid leukocytes count (number/volume) 2550 / [...] plasma calcium measurement (mass/volume) 7.6 mg/dL 8.5-10.1 Complete blood count (CBC) with automate d white blood cell (WBC) differential - 04/28/19 16:09 Blood leukocytes automated count (number/volume) 1.3 10*3/uL 4.3-11.0 Blood erythrocytes automated count (number/volume) 3.23 10*6/uL 4.35-5.85 Venous blood hemoglobin measurement (mass/volume) 8.0 g/dL 11.5-16.0 Blood hematocrit (volume fraction) 25 % 35-52 Automated erythrocyte mean corpuscular volume 77 [ foz_us] 80-99 Automated erythrocyte mean corpuscular h emoglobin (mass per erythrocyte) 25 pg 25-34 Automated erythrocyte mean corpuscular h emoglobin concentration measurement (mass/volume) 32 g/dL 32-36 Automated erythrocyte distribution width ratio 17. 7 % 10.0- 14.5 Automated blood platelet count (count/volume) 332 10*3/uL 130-400 Automated blood platelet mean volume measurement 9.3 [foz_us] 7.4-10.4 Automated blood neutrophils/100 leukocytes 31 % 42-75 Automated blood lymphocytes/100 leukocytes 34 % 12-44 Blood monocytes/100 leukocytes 33 % 0-12 Automated blood eosinophils/100 leukocytes 1 % 0-10 Automated blood basophils/100 leukocytes 1 % 0-10 Blood neutrophils automated count (number/volume) 0.4 10*3 1.8-7.8 Blood lymphocytes automated count (number/volume) 0.5 10*3 1.0-4.0 Blood monocytes automated count (number/volume) 0. 4 10*3 0.0-1.0 Automated eosinophil count 0.0 10*3/uL 0 .0-0.3 Automated blood basophil count (count/volume) 0.0 10*3/uL 0.0-0.1 Blood blood smear finding identification by light micr oscopy YES NR Comprehensive metabolic panel - 04/28/19 16:09 Serum or plasma sodium measurement (moles/volume) 126 mmol/L 135-145 Serum or plasma potassium measurement (moles/volume) 4.1 mmol/L 3.6-5.0 Serum or plasma chloride measurement (moles/volume) 100 mmol/L 98-107 Carbon dioxide 19 mmol/L 21-32 Serum or plasma anion gap determination (moles/volume) 7 mmol/L 5-14 Serum or plasma urea nitrogen measurement (mass/volume ) 23 mg/dL 7-18 Serum or plasma creatinine measurement (mass/volume) 0.77 mg/dL 0.60-1.30 Serum or plasma urea nitrogen/creatinine mass ratio 30 NRG Serum or plasma creatinine measurement w ith calculation of estimated glomerular filtration rate > NRG Serum or plasma glucose measurement (mass/volume) 101 mg/dL 70-105 Serum or plasma calcium measurement (mass/volume) 7.8 mg/dL 8.5-10.1 Serum or plasma total bilirubin measurement (mass/volu me) 0.4 mg/dL 0.1-1.0 Serum or plasma alkaline phosphatase miguel angel surement (enzymatic activity/volume) 86 U/L 40-136 Serum or plasma aspartate aminotransfera se measurement (enzymatic activity/volume) 20 U/L 5-34 Serum or plasma alanine aminotransferase measurement (enzymatic activity/volume) 21 U/L 0-55 Serum or plasma protein measurement (mass/volume) 5.6 g/dL 6.4-8.2 Serum or plasma albumin measurement (mass/volume) 2.8 g/dL 3.2-4.5 CALCIUM CORRECTED 8.8 mg/dL 8.5-10.1 Manual absolute plasma cell count - 04/17 05/06 16:09 Blood monocytes/100 leukocytes 30 % NRG Manual blood segmented neutrophils/100 leukocytes 25 % NRG Blood band neutrophils/100 leukocytes 7 % NRG Manual blood lymphocytes/100 leukocytes 37 % NRG Manual eosinophils/100 leukocytes in nose 1 % NRG Blood polychromasia detection by light microscopy MODERATE NRG Blood anisocytosis detection by light microscopy M ODERATE NRG Blood poikilocytosis detection by light microscopy SLIGHT NRG Manual blood nucleated erythrocytes/100 leukocytes ratio 4 NRG Blood microcytes detection by light microscopy SLI GHT NRG Blood rouleaux detection by light microscopy SLIGH T NRG Blood lactic acid measurement (moles/vol ume) - 04/28/19 20:58 Blood lactic acid measurement (moles/volume) 1.47 mmol/L 0.50-2.00 Bacterial blood culture - 04/28/19 20:58 FREE TEXT EXTERNAL SEE COMMENT NRG QUANTITY OF GROWTH Isolated NRG Bacterial blood culture [id number] NRG Bacterial blood culture - 04/28/19 20:58 Bacterial blood culture NG NRG Methicillin resistant Staphylococcus aur eus (MRSA) screening culture - 04/28/19 23:16 Methicillin resistant Staphylococcus aureus (MRSA) scr eening culture NEG NRG Complete urinalysis with reflex to cultu re - 04/29/19 02:20 Urine color determination DARK YELLOW N RG Urine clarity determination CLEAR NR G Urine pH measurement by test strip 6.5 5-9 Specific gravity of urine by test strip <= 1.016-1.022 Urine protein assay by test strip, semi-quantitative 1+ NEGATIVE Urine glucose detection by automated test strip NE GATIVE NEGATIVE Erythrocytes detection in urine sediment by light micr oscopy TRACE-I NEGATIVE Urine ketones detection by automated test strip NE GATIVE NEGATIVE Urine nitrite detection by test strip NEGATIVE NEGATIVE Urine total bilirubin detection by test strip NEGA TIVE NEGATIVE Urine urobilinogen measurement by automated test strip (mass/volume) 0.2 mg/dL < = 1.0 Urine leukocyte esterase detection by dipstick NEG ATIVE NEGATIVE Automated urine sediment erythrocyte cou nt by microscopy (number/high power field) RARE NRG Automated urine sediment leukocyte count by microscopy (number/high power field) [HPF] NRG Bacteria detection in urine sediment by light microsco py MODERATE NRG Squamous epithelial cells detection in u rine sediment by light microscopy 2-5 NRG Crystals detection in urine sediment by light microsco py NONE NRG Casts detection in urine sediment by light microscopy NONE NRG Mucus detection in urine sediment by light microscopy NEGATIVE NRG Complete urinalysis with reflex to culture YES NRG Bacterial urine culture - 04/29/19 02:20 Bacterial urine culture [id number] NRG COLONY COUNT 50,000 CFU/ML NRG FTX;REPORTABLE PREDOMINANT NRG FREE TEXT ENTRY 2 SUSCEPTIBILITY REPORTED 05-02-19, 1201 NRG Dirithromycin susceptibility test by dis k diffusion - 04/29/19 02:20 Vancomycin susceptibility test by minimum inhibitory c oncentration <= NRG Levofloxacin susceptibility test by minimum inhibitory concentration <= NRG Ampicillin susceptibility test by minimum inhibitory c oncentration 1 NRG Linezolid susceptibility test by minimum inhibitory co ncentration 2 NRG Daptomycin susc TAYLOR 4 NRG Complete blood count (CBC) with automate d white blood cell (WBC) differential - 04/29/19 03:06 Blood leukocytes automated count (number/volume) 1.5 10*3/uL 4.3-11.0 Blood erythrocytes automated count (number/volume) 2.89 10*6/uL 4.35-5.85 Venous blood hemoglobin measurement (mass/volume) 7.2 g/dL 11.5-16.0 Blood hematocrit (volume fraction) 22 % 35-52 Automated erythrocyte mean corpuscular volume 77 [ foz_us] 80-99 Automated erythrocyte mean corpuscular h emoglobin (mass per erythrocyte) 25 pg 25-34 Automated erythrocyte mean corpuscular h emoglobin concentration measurement (mass/volume) 32 g/dL 32-36 Automated erythrocyte distribution width ratio 17. 6 % 10.0- 14.5 Automated blood platelet count (count/volume) 307 10*3/uL 130-400 Automated blood platelet mean volume measurement 9.1 [foz_us] 7.4-10.4 Automated blood neutrophils/100 leukocytes 52 % 42-75 Automated blood lymphocytes/100 leukocytes 20 % 12-44 Blood monocytes/100 leukocytes 27 % 0-12 Automated blood eosinophils/100 leukocytes 2 % 0-10 Automated blood basophils/100 leukocytes 0 % 0-10 Blood neutrophils automated count (number/volume) 0.8 10*3 1.8-7.8 Blood lymphocytes automated count (number/volume) 0.3 10*3 1.0-4.0 Blood monocytes automated count (number/volume) 0. 4 10*3 0.0-1.0 Automated eosinophil count 0.0 10*3/uL 0 .0-0.3 Automated blood basophil count (count/volume) 0.0 10*3/uL 0.0-0.1 Comprehensive metabolic panel - 04/29/19 03:06 Serum or plasma sodium measurement (moles/volume) 123 mmol/L 135-145 Serum or plasma potassium measurement (moles/volume) 4.2 mmol/L 3.6-5.0 Serum or plasma chloride measurement (moles/volume) 98 mmol/L 98-107 Carbon dioxide 16 mmol/L 21-32 Serum or plasma anion gap determination (moles/volume) 9 mmol/L 5-14 Serum or plasma urea nitrogen measurement (mass/volume ) 28 mg/dL 7-18 Serum or plasma creatinine measurement (mass/volume) 0.81 mg/dL 0.60-1.30 Serum or plasma urea nitrogen/creatinine mass ratio 35 NRG Serum or plasma creatinine measurement w ith calculation of estimated glomerular filtration rate > NRG Serum or plasma glucose measurement (mass/volume) 138 mg/dL 70-105 Serum or plasma calcium measurement (mass/volume) 7.6 mg/dL 8.5-10.1 Serum or plasma total bilirubin measurement (mass/volu me) 0.5 mg/dL 0.1-1.0 Serum or plasma alkaline phosphatase miguel angel surement (enzymatic activity/volume) 78 U/L 40-136 Serum or plasma aspartate aminotransfera se measurement (enzymatic activity/volume) 13 U/L 5-34 Serum or plasma alanine aminotransferase measurement (enzymatic activity/volume) 22 U/L 0-55 Serum or plasma protein measurement (mass/volume) 5.4 g/dL 6.4-8.2 Serum or plasma albumin measurement (mass/volume) 2.9 g/dL 3.2-4.5 CALCIUM CORRECTED 8.5 mg/dL 8.5-10.1 Serum or plasma phosphate measurement (m ass/volume) - 04/29/19 03:06 Serum or plasma phosphate measurement (mass/volume) 3.6 mg/dL 2.3-4.7 Magnesium - 04/29/19 03:06 Magnesium 2.2 mg/dL 1.6-2.4 RED CELLS LEUKO REDUCED AS1 - 04/29/19 0 8:57 RED CELLS LEUKO REDUCED AS1 T RANSFUSED 04/29/19 1455 NRG Blood type T Indirect antibody screen pa ashwin - 04/29/19 08:57 WRISTBAND NUMBER [id number] NRG ABO+Rh group OP NRG Blood group antibody screen NEGATIVE NR G Complete blood count (CBC) with automate d white blood cell (WBC) differential - 04/30/19 03:32 Blood leukocytes automated count (number/volume) 5.6 10*3/uL 4.3-11.0 Blood erythrocytes automated count (number/volume) 3.42 10*6/uL 4.35-5.85 Venous blood hemoglobin measurement (mass/volume) 8.7 g/dL 11.5-16.0 Blood hematocrit (volume fraction) 27 % 35-52 Automated erythrocyte mean corpuscular volume 79 [ foz_us] 80-99 Automated erythrocyte mean corpuscular h emoglobin (mass per erythrocyte) 25 pg 25-34 Automated erythrocyte mean corpuscular h emoglobin concentration measurement (mass/volume) 32 g/dL 32-36 Automated erythrocyte distribution width ratio 17. 6 % 10.0- 14.5 Automated blood platelet count (count/volume) 301 10*3/uL 130-400 Automated blood platelet mean volume measurement 9.4 [foz_us] 7.4-10.4 Automated blood neutrophils/100 leukocytes 71 % 42-75 Automated blood lymphocytes/100 leukocytes 11 % 12-44 Blood monocytes/100 leukocytes 18 % 0-12 Automated blood eosinophils/100 leukocytes 0 % 0-10 Automated blood basophils/100 leukocytes 0 % 0-10 Blood neutrophils automated count (number/volume) 4.0 10*3 1.8-7.8 Blood lymphocytes automated count (number/volume) 0.6 10*3 1.0-4.0 Blood monocytes automated count (number/volume) 1. 0 10*3 0.0-1.0 Automated eosinophil count 0.0 10*3/uL 0 .0-0.3 Automated blood basophil count (count/volume) 0.0 10*3/uL 0.0-0.1 Comprehensive metabolic panel - 04/30/19 03:32 Serum or plasma sodium measurement (moles/volume) 131 mmol/L 135-145 Serum or plasma potassium measurement (moles/volume) 4.3 mmol/L 3.6-5.0 Serum or plasma chloride measurement (moles/volume) 104 mmol/L 98-107 Carbon dioxide 18 mmol/L 21-32 Serum or plasma anion gap determination (moles/volume) 9 mmol/L 5-14 Serum or plasma urea nitrogen measurement (mass/volume ) 23 mg/dL 7-18 Serum or plasma creatinine measurement (mass/volume) 0.71 mg/dL 0.60-1.30 Serum or plasma urea nitrogen/creatinine mass ratio 32 NRG Serum or plasma creatinine measurement w ith calculation of estimated glomerular filtration rate > NRG Serum or plasma glucose measurement (mass/volume) 136 mg/dL 70-105 Serum or plasma calcium measurement (mass/volume) 7.9 mg/dL 8.5-10.1 Serum or plasma total bilirubin measurement (mass/volu me) 0.3 mg/dL 0.1-1.0 Serum or plasma alkaline phosphatase miguel angel surement (enzymatic activity/volume) 64 U/L 40-136 Serum or plasma aspartate aminotransfera se measurement (enzymatic activity/volume) 22 U/L 5-34 Serum or plasma alanine aminotransferase measurement (enzymatic activity/volume) 21 U/L 0-55 Serum or plasma protein measurement (mass/volume) 5.4 g/dL 6.4-8.2 Serum or plasma albumin measurement (mass/volume) 2.7 g/dL 3.2-4.5 CALCIUM CORRECTED 8.9 mg/dL 8.5-10.1 Serum or plasma phosphate measurement (m ass/volume) - 04/30/19 03:32 Serum or plasma phosphate measurement (mass/volume) 2.2 mg/dL 2.3-4.7 Magnesium - 04/30/19 03:32 Magnesium 2.5 mg/dL 1.6-2.4 Complete blood count (CBC) with automate d white blood cell (WBC) differential - 05/01/19 14:00 Blood leukocytes automated count (number/volume) 10.3 10*3/uL 4.3-11.0 Blood erythrocytes automated count (number/volume) 3.27 10*6/uL 4.35-5.85 Venous blood hemoglobin measurement (mass/volume) 8.5 g/dL 11.5-16.0 Blood hematocrit (volume fraction) 26 % 35-52 Automated erythrocyte mean corpuscular volume 81 [ foz_us] 80-99 Automated erythrocyte mean corpuscular h emoglobin (mass per erythrocyte) 26 pg 25-34 Automated erythrocyte mean corpuscular h emoglobin concentration measurement (mass/volume) 32 g/dL 32-36 Automated erythrocyte distribution width ratio 18. 1 % 10.0- 14.5 Automated blood platelet count (count/volume) 310 10*3/uL 130-400 Automated blood platelet mean volume measurement 9.8 [foz_us] 7.4-10.4 Automated blood neutrophils/100 leukocytes 83 % 42-75 Automated blood lymphocytes/100 leukocytes 8 % 12-44 Blood monocytes/100 leukocytes 8 % 0-12 Automated blood eosinophils/100 leukocytes 0 % 0-10 Automated blood basophils/100 leukocytes 0 % 0-10 Blood neutrophils automated count (number/volume) 8.6 10*3 1.8-7.8 Blood lymphocytes automated count (number/volume) 0.9 10*3 1.0-4.0 Blood monocytes automated count (number/volume) 0. 9 10*3 0.0-1.0 Automated eosinophil count 0.0 10*3/uL 0 .0-0.3 Automated blood basophil count (count/volume) 0.0 10*3/uL 0.0-0.1 Whole blood basic metabolic panel - 04/17 08/03 14:00 Serum or plasma sodium measurement (moles/volume) 134 mmol/L 135-145 Serum or plasma potassium measurement (moles/volume) 4.5 mmol/L 3.6-5.0 Serum or plasma chloride measurement (moles/volume) 105 mmol/L 98-107 Carbon dioxide 20 mmol/L 21-32 Serum or plasma anion gap determination (moles/volume) 9 mmol/L 5-14 Serum or plasma urea nitrogen measurement (mass/volume ) 23 mg/dL 7-18 Serum or plasma creatinine measurement (mass/volume) 0.63 mg/dL 0.60-1.30 Serum or plasma urea nitrogen/creatinine mass ratio 37 NRG Serum or plasma creatinine measurement w ith calculation of estimated glomerular filtration rate > NRG Serum or plasma glucose measurement (mass/volume) 112 mg/dL 70-105 Serum or plasma calcium measurement (mass/volume) 7.8 mg/dL 8.5-10.1 Manual absolute plasma cell count - 04/17 08/03 14:00 Blood monocytes/100 leukocytes 8 % NRG Manual blood segmented neutrophils/100 leukocytes 59 % NRG Blood band neutrophils/100 leukocytes 19 % NRG Manual blood lymphocytes/100 leukocytes 8 % NRG Manual eosinophils/100 leukocytes in nose 0 % NRG Manual blood basophils/100 leukocytes 0 % NRG Blood polychromasia detection by light microscopy SLIGHT NRG Blood anisocytosis detection by light microscopy M ODERATE NRG Manual blood metamyelocytes/100 leukocytes 2 % NRG Manual blood myelocytes/100 leukocytes 4 % NRG Complete blood count (CBC) with automate d white blood cell (WBC) differential - 05/03/19 06:03 Blood leukocytes automated count (number/volume) 10.0 10*3/uL 4.3-11.0 Blood erythrocytes automated count (number/volume) 3.27 10*6/uL 4.35-5.85 Venous blood hemoglobin measurement (mass/volume) 8.4 g/dL 11.5-16.0 Blood hematocrit (volume fraction) 27 % 35-52 Automated erythrocyte mean corpuscular volume 82 [ foz_us] 80-99 Automated erythrocyte mean corpuscular h emoglobin (mass per erythrocyte) 26 pg 25-34 Automated erythrocyte mean corpuscular h emoglobin concentration measurement (mass/volume) 32 g/dL 32-36 Automated erythrocyte distribution width ratio 18. 5 % 10.0- 14.5 Automated blood platelet count (count/volume) 275 10*3/uL 130-400 Automated blood platelet mean volume measurement 9.3 [foz_us] 7.4-10.4 Automated blood neutrophils/100 leukocytes 77 % 42-75 Automated blood lymphocytes/100 leukocytes 14 % 12-44 Blood monocytes/100 leukocytes 9 % 0-12 Automated blood eosinophils/100 leukocytes 0 % 0-10 Automated blood basophils/100 leukocytes 0 % 0-10 Blood neutrophils automated count (number/volume) 7.7 10*3 1.8-7.8 Blood lymphocytes automated count (number/volume) 1.4 10*3 1.0-4.0 Blood monocytes automated count (number/volume) 0. 9 10*3 0.0-1.0 Automated eosinophil count 0.0 10*3/uL 0 .0-0.3 Automated blood basophil count (count/volume) 0.0 10*3/uL 0.0-0.1 Comprehensive metabolic panel - 05/03/19 06:03 Serum or plasma sodium measurement (moles/volume) 133 mmol/L 135-145 Serum or plasma potassium measurement (moles/volume) 4.2 mmol/L 3.6-5.0 Serum or plasma chloride measurement (moles/volume) 101 mmol/L 98-107 Carbon dioxide 24 mmol/L 21-32 Serum or plasma anion gap determination (moles/volume) 8 mmol/L 5-14 Serum or plasma urea nitrogen measurement (mass/volume ) 21 mg/dL 7-18 Serum or plasma creatinine measurement (mass/volume) 0.60 mg/dL 0.60-1.30 Serum or plasma urea nitrogen/creatinine mass ratio 35 NRG Serum or plasma creatinine measurement w ith calculation of estimated glomerular filtration rate > NRG Serum or plasma glucose measurement (mass/volume) 86 mg/dL 70-105 Serum or plasma calcium measurement (mass/volume) 8.2 mg/dL 8.5-10.1 Serum or plasma total bilirubin measurement (mass/volu me) 0.2 mg/dL 0.1-1.0 Serum or plasma alkaline phosphatase miguel angel surement (enzymatic activity/volume) 47 U/L 40-136 Serum or plasma aspartate aminotransfera se measurement (enzymatic activity/volume) 27 U/L 5-34 Serum or plasma alanine aminotransferase measurement (enzymatic activity/volume) 36 U/L 0-55 Serum or plasma protein measurement (mass/volume) 5.0 g/dL 6.4-8.2 Serum or plasma albumin measurement (mass/volume) 2.5 g/dL 3.2-4.5 CALCIUM CORRECTED 9.4 mg/dL 8.5-10.1 Serum or plasma phosphate measurement (m ass/volume) - 05/03/19 06:03 Serum or plasma phosphate measurement (mass/volume) 4.7 mg/dL 2.3-4.7 Magnesium - 05/03/19 06:03 Magnesium 2.0 mg/dL 1.6-2.4 Whole blood basic metabolic panel - 04/17 11/03 06:00 Serum or plasma sodium measurement (moles/volume) 133 mmol/L 135-145 Serum or plasma potassium measurement (moles/volume) 4.5 mmol/L 3.6-5.0 Serum or plasma chloride measurement (moles/volume) 101 mmol/L 98-107 Carbon dioxide 23 mmol/L 21-32 Serum or plasma anion gap determination (moles/volume) 9 mmol/L 5-14 Serum or plasma urea nitrogen measurement (mass/volume ) 16 mg/dL 7-18 Serum or plasma creatinine measurement (mass/volume) 0.66 mg/dL 0.60-1.30 Serum or plasma urea nitrogen/creatinine mass ratio 24 NRG Serum or plasma creatinine measurement w ith calculation of estimated glomerular filtration rate > NRG Serum or plasma glucose measurement (mass/volume) 84 mg/dL 70-105 Serum or plasma calcium measurement (mass/volume) 8.5 mg/dL 8.5-10.1 Influenza virus A and B antigen detectio n - 05/22/19 15:30 FLU RESULT NEGATIVE FOR INFLUENZA A AND B ANTIGENS BY IA NRG Complete blood count (CBC) with automate d white blood cell (WBC) differential - 05/22/19 15:39 Blood leukocytes automated count (number/volume) 3.8 10*3/uL 4.3-11.0 Blood erythrocytes automated count (number/volume) 3.67 10*6/uL 4.35-5.85 Venous blood hemoglobin measurement (mass/volume) 9.6 g/dL 11.5-16.0 Blood hematocrit (volume fraction) 30 % 35-52 Automated erythrocyte mean corpuscular volume 82 [ foz_us] 80-99 Automated erythrocyte mean corpuscular h emoglobin (mass per erythrocyte) 26 pg 25-34 Automated erythrocyte mean corpuscular h emoglobin concentration measurement (mass/volume) 32 g/dL 32-36 Automated erythrocyte distribution width ratio 19. 8 % 10.0- 14.5 Automated blood platelet count (count/volume) 341 10*3/uL 130-400 Automated blood platelet mean volume measurement 9.8 [foz_us] 7.4-10.4 Automated blood neutrophils/100 leukocytes 73 % 42-75 Automated blood lymphocytes/100 leukocytes 9 % 12-44 Blood monocytes/100 leukocytes 18 % 0-12 Automated blood eosinophils/100 leukocytes 0 % 0-10 Automated blood basophils/100 leukocytes 0 % 0-10 Blood neutrophils automated count (number/volume) 2.8 10*3 1.8-7.8 Blood lymphocytes automated count (number/volume) 0.4 10*3 1.0-4.0 Blood monocytes automated count (number/volume) 0. 7 10*3 0.0-1.0 Automated eosinophil count 0.0 10*3/uL 0 .0-0.3 Automated blood basophil count (count/volume) 0.0 10*3/uL 0.0-0.1 Blood lactic acid measurement (moles/vol ume) - 05/22/19 15:39 Blood lactic acid measurement (moles/volume) 0.86 mmol/L 0.50-2.00 PT panel in platelet poor plasma by coag ulation assay - 05/22/19 15:39 Prothrombin time (PT) in platelet poor plasma by coagu lation assay 14.0 s 12.2-14.7 INR in platelet poor plasma or blood by coagulation as say 1.0 0.8-1.4 Activated partial thromboplastin time (a PTT) in platelet poor plasma bycoagulation assay - 05/22/19 15:39 Activated partial thromboplastin time (a PTT) in platelet poor plasma bycoagulation assay 38 s 24-35 Comprehensive metabolic panel - 05/22/19 15:39 Serum or plasma sodium measurement (moles/volume) 129 mmol/L 135-145 Serum or plasma potassium measurement (moles/volume) 3.2 mmol/L 3.6-5.0 Serum or plasma chloride measurement (moles/volume) 99 mmol/L 98-107 Carbon dioxide 17 mmol/L 21-32 Serum or plasma anion gap determination (moles/volume) 13 mmol/L 5-14 Serum or plasma urea nitrogen measurement (mass/volume ) 5 mg/dL 7-18 Serum or plasma creatinine measurement (mass/volume) 0.69 mg/dL 0.60-1.30 Serum or plasma urea nitrogen/creatinine mass ratio 7 NRG Serum or plasma creatinine measurement w ith calculation of estimated glomerular filtration rate > NRG Serum or plasma glucose measurement (mass/volume) 89 mg/dL 70-105 Serum or plasma calcium measurement (mass/volume) 8.2 mg/dL 8.5-10.1 Serum or plasma total bilirubin measurement (mass/volu me) 0.4 mg/dL 0.1-1.0 Serum or plasma alkaline phosphatase miguel angel surement (enzymatic activity/volume) 61 U/L 40-136 Serum or plasma aspartate aminotransfera se measurement (enzymatic activity/volume) 16 U/L 5-34 Serum or plasma alanine aminotransferase measurement (enzymatic activity/volume) 11 U/L 0-55 Serum or plasma protein measurement (mass/volume) 4.9 g/dL 6.4-8.2 Serum or plasma albumin measurement (mass/volume) 2.6 g/dL 3.2-4.5 CALCIUM CORRECTED 9.3 mg/dL 8.5-10.1 Bacterial blood culture - 05/22/19 15:39 FREE TEXT EXTERNAL SUSCEPTIBILITY TO FOLLOW NRG QUANTITY OF GROWTH Isolated NRG Bacterial blood culture [id number] NRG FREE TEXT ENTRY 2 PRELIM RAPID ID BY [facility] 3-20, 0 [phone] NRG FREE TEXT ENTRY 3 ID CONFIRMED NRG Bacterial blood culture - 05/22/19 16:25 Bacterial blood culture NG NRG Complete urinalysis with reflex to cultu re - 05/22/19 17:31 Urine color determination YELLOW NRG Urine clarity determination CLOUDY NR G Urine pH measurement by test strip 6.5 5-9 Specific gravity of urine by test strip 1.020 1.016-1.022 Urine protein assay by test strip, semi-quantitative TRACE NEGATIVE Urine glucose detection by automated test strip NE GATIVE NEGATIVE Erythrocytes detection in urine sediment by light micr oscopy TRACE-I NEGATIVE Urine ketones detection by automated test strip 3+ NEGATIVE Urine nitrite detection by test strip POSITIVE NEGATIVE Urine total bilirubin detection by test strip NEGA TIVE NEGATIVE Urine urobilinogen measurement by automated test strip (mass/volume) 0.2 mg/dL < = 1.0 Urine leukocyte esterase detection by dipstick TRA CE NEGATIVE Automated urine sediment erythrocyte cou nt by microscopy (number/high power field) [HPF] NRG Automated urine sediment leukocyte count by microscopy (number/high power field) [HPF] NRG Bacteria detection in urine sediment by light microsco py LARGE NRG Squamous epithelial cells detection in u rine sediment by light microscopy NONE NRG Crystals detection in urine sediment by light microsco py NONE NRG Casts detection in urine sediment by light microscopy NONE NRG Mucus detection in urine sediment by light microscopy NEGATIVE NRG Complete urinalysis with reflex to culture CULTURE PENDING NRG Bacterial urine culture - 05/22/19 17:31 Bacterial urine culture [id number] NRG COLONY COUNT >100,000/ML NRG FTX;REPORTABLE REPORTED BY [facility] NRG FREE TEXT ENTRY 2 PRELIM RAPID ID BY [facility] 05-23-19, 1 319 NRG FREE TEXT ENTRY 3 PRELIM RAPID ID BY [facility] 05-23-19,13 17 NRG FREE TEXT ENTRY 4 ID CONFIRMED BY [facility] 05/23 06:06 NRG Dirithromycin susceptibility test by dis k diffusion - 05/22/19 17:31 Gentamicin susceptibility test by minimum inhibitory c oncentration <= NRG Levofloxacin susceptibility test by minimum inhibitory concentration <= NRG Tobramycin susceptibility test by minimum inhibitory c oncentration <= NRG Piperacillin/tazobactam susceptibility t est by minimum inhibitory concentration = NRG Ciprofloxacin susceptibility test by minimum inhibitor y concentration <= NRG Meropenem susceptibility test by minimum inhibitory co ncentration 0.25 NRG Aztreonam susceptibility test by minimum inhibitory co ncentration 8 NRG Cefepime susceptibility test by minimum inhibitory con centration 2 NRG Imipenem susceptibility test by minimum inhibitory con centration 2 NRG Ceftazidime susceptibility test by minimum inhibitory concentration 4 NRG Encounters ACCT No. Visit Date/Time Discharge Status Pt. Type Provider Facility Loc./Unit Complaint [id number] 04/15/2019 13:01:31 Document Registration [id number] 04/15/2019 13:01:30 Document Registration [id number] 04/15/2019 13:01:29 Document Registration [id number] 04/15/2019 15:27:43 04/15/2019 23:59: 59 CLS Outpatient EITAN KRUGER [id number] 04/15/2019 11:36:00 04/15/2019 23:59: 59 CLS Outpatient Monika Home [id number] 05/24/2019 12:58:00 17:10:00 DIS Outpatient BERTHA FRAUSTO, HUY [facility] RAD ASCITES,CA OF RT BREAST ,SECONDARY CA OF BONE [id number] 05/22/2019 15:00:00 020 18:18:00 DIS Emergency CADEN HARDIN MD [facility] ER FEVER 102 / [place] PT [id number] 05/20/2019 13:52:00 23:59:59 CLS Outpatient HUY STONE MD [facility] ONC [id number] 05/12/2019 13:00:00 23:59:59 CLS Outpatient NICKIE PERDOMO DO [facility] RAD CANCER OF RT BREAST,SEC ONDARY CANCER OF BONE [id number] 05/12/2019 12:10:00 23:59:59 CLS Outpatient HUY STONE MD [facility] RAD CA OF RT BREAST,SECONDA RY CA OF BONE [id number] 05/11/2019 07:45:00 23:59:59 CLS Outpatient HUY STONE MD [facility] RAD CANCER OF RT BREAST,DIPranav ZINESS [id number] 05/05/2019 17:14:00 12:30:00 DIS Outpatient HUY STONE MD [facility] 4TH N/V [id number] 04/28/2019 21:59:00 17:52:00 DIS Inpatient HUY STONE MD [facility] 4TH NAUSEA,VOMITING,BREAST CA [id number] 04/21/2019 10:57:00 22:00:00 DIS Inpatient HUY STONE MD [facility] 4TH SWB, NAUSEA, VOMITING, BREAST CANCER [id number] 04/18/2019 12:04:00 10:50:00 DIS Inpatient WILFREDO PAREDES [facility] 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, METAST ATIC BREAST CA [id number] 04/14/2019 12:38:00 23:59:59 CLS Outpatient NICKIE PERDOMO DO [facility] RAD ABD OSCITES [id number] 04/14/2019 07:01:00 23:59:59 CLS Outpatient TICO GALAN MD [facility] RAD RUQ PAIN [id number] 04/13/2019 19:02:00 22:48:00 DIS Emergency ANGELIA FRAUSTO, TICO Ladd [facility] ER ABD PAIN [id number] 04/02/2019 12:34:00 23:59:59 CLS Outpatient HUY STONE MD [facility] RAD CANCER OF RIGHT BREAST, SECONDARY CANCER OF BONE [id number] 2019 10:26:00 23:59:59 CLS Outpatient HUY STONE MD [facility] RAD CANCER OF RT BREAST [id number] 03/23/2019 14:52:00 23:59:59 CLS Outpatient HUY STONE MD [facility] RAD CANCER OF RT BREAST,DIZ ZINESS [id number] 03/01/2019 14:00:00 00:01:00 DIS Outpatient HUY STONE MD [facility] ONC [id number] 12/02/2018 15:28:00 00:01:00 DIS Outpatient HUY STONE MD [facility] ONC [id number] 09/02/2018 13:53:00 08:35:00 DIS Outpatient CAITLYN FRAUSTO, ERIC [facility] ONC [id number] 09/01/2018 08:17:00 00:01:00 DIS Outpatient HUY STONE MD [facility] ONC [id number] 05/13/2018 13:39:00 00:01:00 DIS Outpatient HUY STONE MD [facility] ONC [id number] 03/02/2018 10:55:00 10:56:00 DIS Outpatient HUY STONE MD [facility] ONC
== END 2019-05-22 18:18 | disposition home or self-care (01) ==
LOC: EDUNIT# 14:59 → ER 15:00
DX: N39.0 Urinary tract infection, site not specified (principal); C50.919 Malignant neoplasm of unspecified site of unspecified female breast; C79.51 Secondary malignant neoplasm of bone; C79.89 Secondary malignant neoplasm of other specified sites; I10 Essential (primary) hypertension; K21.9 Gastro-esophageal reflux disease without esophagitis; E03.9 Hypothyroidism, unspecified; F32.9 Major depressive disorder, single episode, unspecified; F90.9 Attention-deficit hyperactivity disorder, unspecified type; Z88.5 Allergy status to narcotic agent; Z88.6 Allergy status to analgesic agent; Z88.8 Allergy status to other drugs, medicaments and biological substances
CPT/HCPCS: 36415; 71045; 80053; 81000; 83605; 85025; 85610; 85730; 87040; 87077; 87088; 87186; 87804; 93005

== ENCOUNTER 2019-05-24 12:58 | Outpatient (CLI) | payer MEDICARE, OTHER ==
[~2019-05-24] VITALS: Ht 166.4 cm; Wt 70.5 kg
[~2019-05-24 12:58] MED LIST changes: +LEVO750T39 PO
[2019-05-24 13:02] VITALS: BP 105/80
[2019-05-24] MEDS ORDERED: ALBUMIN 25% 25 GM/100 ML 100 ML IV ONE (14:15)
--- NOTE | 2019-05-24 14:27 | Diagnostic Imaging Report ---
INDICATION: Ascites. Ultrasound guidance was provided for Dr. Patino for paracentesis. Images demonstrate a large amount of fluid in the left lower quadrant. IMPRESSION: Sonographic guidance for Dr. Patino for paracentesis. Dictated by: Dictated on workstation # [id number]
--- NOTE | 2019-05-25 21:02 | OPERATIVE REPORT ---
DATE OF SERVICE: 05/24/2019 PREOPERATIVE DIAGNOSIS: Symptomatic ascites. POSTOPERATIVE DIAGNOSIS: Symptomatic ascites. PROCEDURE: Ultrasound-guided paracentesis. SURGEON: Nickie Patino DO ANESTHESIA: 1% lidocaine, 5 mL. COMPLICATIONS: None. INDICATIONS: The patient is a 59-year-old female with metastatic breast cancer with symptomatic ascites. She understands risks and benefits of procedure and wished to proceed with procedure. Consent was signed in the chart. DESCRIPTION OF PROCEDURE: The patient was taken to the procedure room. Ultrasound was used to isolate the largest pocket and visualized, which was in the left lower quadrant. The area was then prepped and draped in sterile fashion. Timeout was performed. Local anesthetic was infiltrated and 11 blade scalpel was used to make small skin incisions using the [id number] needle and catheter. This was then advanced through the abdominal wall until straw colored fluid was returned and the catheter was then advanced. The needle was then removed. A total of 4 liters was drawn off and then the catheter was then removed. The area was washed and dried and sterile bandage was applied. The patient tolerated procedure well without any complications. She was discharged home. Job ID: [id number] DocumentID: [id number] Dictated Date: 05/25/2019 15:15:31 Bedspread Seamer Date: 05/25/2019 21:02:03 Dictated By: NICKIE PATINO DO
== END 2019-05-24 17:10 | disposition home or self-care (01) ==
LOC: RAD 12:58
PROVIDERS: ATTEND Internal Medicine Hematology & Oncology
DX: C50.911 Malignant neoplasm of unspecified site of right female breast (principal); C79.51 Secondary malignant neoplasm of bone; R18.8 Other ascites
CPT/HCPCS: 49082; 76942; 96365

== ENCOUNTER 2019-06-11 16:56 | Inpatient (IN) | payer MEDICARE, OTHER ==
[~2019-06-11] VITALS: Ht 167.7 cm; Wt 72.6 kg
--- OUTSIDE RECORDS SUMMARY | 2019-06-11 17:04 | XMS REPORT | Continuity of Care Document ---
Demographics Preferred Language Unknown Marital Status Unknown Church Affiliation Unknown Race Unknown Ethnic Group Unknown Author Organization Unknown Address Unknown Phone Unavailable Allergies Active Description Code Type Severity Reaction Onset Reported/Identified Relationship to Patient Clinical Status Yes ASPIRIN [id number] DRUG N/A N/A Yes COMPAZINE [id number] DRUG N/A N/A Yes PROCHLORPERAZINE [id number] DRUG N/A N/A Yes aspirin [id number] Drug Allergy Unknown N/A 01/13/2018 Yes prochlorperazine [id number] Drug Allergy Unknown N/A 01/13/2018 Yes morphine [id number] Drug Allergy Moderate Itching 04/18/2019 Medications There is no data. 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 02/13/1055 HUY STONE MD Ot Z79.899 OTHER HALF-WAY (CURRENT) DRUG THERAPY 02/13/1055 HUY STONE MD [...] 02/11/2018 HUY STONE MD Ot Z79.899 OTHER BOOTH CASHIER (CURRENT) DRUG THERAPY 02/11/2018 HUY STONE MD [...] 02/17/2018 HUY STONE MD Ot Z79.899 OTHER BOOTH CASHIER (CURRENT) DRUG THERAPY 02/17/2018 HUY STONE MD [...] 03/02/2018 HUY STONE MD Ot Z79.899 OTHER HALF-WAY (CURRENT) DRUG THERAPY 03/02/2018 HUY STONE MD [...] 03/02/2018 HUY STONE MD Ot Z79.899 OTHER BOOTH CASHIER (CURRENT) DRUG THERAPY 03/02/2018 HUY STONE MD [...] 03/03/2018 HUY STONE MD Ot Z79.899 OTHER BOOTH CASHIER (CURRENT) DRUG THERAPY 03/03/2018 HUY STONE MD [...] 04/13/2018 HUY STONE MD Ot Z79.899 OTHER HALF-WAY (CURRENT) DRUG THERAPY 04/13/2018 HUY STONE MD [...] 04/14/2018 HUY STONE MD Ot Z79.899 OTHER HALF-WAY (CURRENT) DRUG THERAPY 04/14/2018 HUY STONE MD [...] 05/31/2018 HUY STONE MD Ot Z79.899 OTHER BOOTH CASHIER (CURRENT) DRUG THERAPY 05/31/2018 HUY STONE MD [...] 06/01/2018 HUY STONE MD, Ot Z79.899 OTHER HALF-WAY (CURRENT) DRUG THERAPY 06/01/2018 HUY STONE MD [...] 06/03/2018 HUY STONE MD Ot Z79.899 OTHER BOOTH CASHIER (CURRENT) DRUG THERAPY 06/03/2018 HUY STONE MD [...] 06/04/2018 HUY STONE MD, Ot Z79.899 OTHER HALF-WAY (CURRENT) DRUG THERAPY 06/04/2018 HUY STONE MD, [...] 06/06/2018 HUY STONE MD Ot Z79.899 OTHER HALF-WAY (CURRENT) DRUG THERAPY 06/06/2018 HUY STONE MD [...] 07/08/2018 HUY STONE MD Ot Z79.899 OTHER HALF-WAY (CURRENT) DRUG THERAPY 07/08/2018 HUY STONE MD [...] 07/14/2018 HUY STONE MD Ot Z79.899 OTHER BOOTH CASHIER (CURRENT) DRUG THERAPY 07/14/2018 HUY STONE MD [...] 08/05/2018 HUY STONE MD Ot Z79.899 OTHER BOOTH CASHIER (CURRENT) DRUG THERAPY 08/05/2018 HUY STONE MD [...] 08/05/2018 HUY STONE MD Ot Z79.899 OTHER HALF-WAY (CURRENT) DRUG THERAPY 08/05/2018 HUY STONE MD [...] 08/17/2018 HUY STONE MD Ot Z79.899 OTHER HALF-WAY (CURRENT) DRUG THERAPY 08/17/2018 HUY STONE MD [...] 09/01/2018 HUY STONE MD Ot Z79.899 OTHER HALF-WAY (CURRENT) DRUG THERAPY 09/01/2018 HUY STONE MD [...] 09/03/2018 ERIC BRADY MD Ot Z79.899 OTHER BOOTH CASHIER (CURRENT) DRUG THERAPY 09/03/2018 ERIC BRADY MD [...] 09/03/2018 ERIC BRADY MD Ot Z79.899 OTHER HALF-WAY (CURRENT) DRUG THERAPY 09/03/2018 ERIC BRADY MD [...] 09/03/2018 HUY STONE MD Ot Z79.899 OTHER HALF-WAY (CURRENT) DRUG THERAPY 09/03/2018 HUY STONE MD [...] 09/04/2018 HUY STONE MD Ot Z79.899 OTHER BOOTH CASHIER (CURRENT) DRUG THERAPY 09/04/2018 HUY STONE MD [...] 09/23/2018 HUY STONE MD Ot Z79.899 OTHER HALF-WAY (CURRENT) DRUG THERAPY 09/23/2018 HUY STONE MD [...] 10/16/2018 HUY STONE MD Ot Z79.899 OTHER HALF-WAY (CURRENT) DRUG THERAPY 10/16/2018 HUY STONE MD [...] 10/20/2018 HUY STONE MD Ot Z79.899 OTHER BOOTH CASHIER (CURRENT) DRUG THERAPY 10/20/2018 HUY STONE MD [...] 12/02/2018 HUY STONE MD Ot Z79.899 OTHER BOOTH CASHIER (CURRENT) DRUG THERAPY 12/02/2018 HUY STONE MD [...] 12/03/2018 HUY STONE MD Ot Z79.899 OTHER BOOTH CASHIER (CURRENT) DRUG THERAPY 12/03/2018 HUY STONE MD [...] 12/09/2018 HUY STONE MD Ot Z79.899 OTHER BOOTH CASHIER (CURRENT) DRUG THERAPY 12/09/2018 HUY STONE MD [...] 12/24/2018 HUY STONE MD Ot Z79.899 OTHER BOOTH CASHIER (CURRENT) DRUG THERAPY 12/24/2018 HUY STONE MD [...] 01/11/2019 HUY STONE MD Ot Z79.899 OTHER BOOTH CASHIER (CURRENT) DRUG THERAPY 01/11/2019 HUY STONE MD [...] 03/09/2019 HUY STONE MD Ot Z79.899 OTHER BOOTH CASHIER (CURRENT) DRUG THERAPY 03/09/2019 HUY STONE MD [...] 03/11/2019 HUY STONE MD Ot Z79.899 OTHER BOOTH CASHIER (CURRENT) DRUG THERAPY 03/11/2019 HUY STONE MD [...] 03/22/2019 HUY STONE MD Ot Z79.899 OTHER HALF-WAY (CURRENT) DRUG THERAPY 03/22/2019 HUY STONE MD [...] 03/22/2019 HUY STONE MD Ot Z79.899 OTHER HALF-WAY (CURRENT) DRUG THERAPY 03/22/2019 HUY STONE MD [...] 03/23/2019 HUY STONE MD Ot Z79.899 OTHER HALF-WAY (CURRENT) DRUG THERAPY 03/23/2019 HUY STONE MD [...] 2019 HUY STONE MD Ot Z79.899 OTHER BOOTH CASHIER (CURRENT) DRUG THERAPY 2019 HUY STONE MD [...] Ot R18. 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 04/12/2019 HUY STONE MD Ot Z79.899 OTHER BOOTH CASHIER (CURRENT) DRUG THERAPY 04/12/2019 HUY STONE MD [...] 04/12/2019 HUY STONE MD Ot Z79.899 OTHER HALF-WAY (CURRENT) DRUG THERAPY 04/12/2019 HUY STONE MD, [...] 04/13/2019 HUY STONE MD Ot Z79.899 OTHER BOOTH CASHIER (CURRENT) DRUG THERAPY 04/13/2019 HUY STONE MD, [...] 04/14/2019 HUY STONE MD Ot Z79.899 OTHER HALF-WAY (CURRENT) DRUG THERAPY 04/14/2019 HUY STONE MD, [...] 04/14/2019 HUY STONE MD Ot Z79.899 OTHER BOOTH CASHIER (CURRENT) DRUG THERAPY 04/14/2019 HUY STONE MD, [...] 04/14/2019 HUY STONE MD, Ot Z79.899 OTHER HALF-WAY (CURRENT) DRUG THERAPY 04/14/2019 HUY STONE MD, [...] 04/17/2019 HUY STONE MD, Ot Z79.899 OTHER BOOTH CASHIER (CURRENT) DRUG THERAPY 04/17/2019 HUY STONE MD, [...] 04/17/2019 HUY STONE MD, Ot Z79.899 OTHER BOOTH CASHIER (CURRENT) DRUG THERAPY 04/17/2019 HUY STONE MD, [...] 04/17/2019 HUY STONE MD, Ot Z79.899 OTHER HALF-WAY (CURRENT) DRUG THERAPY 04/17/2019 HUY STONE MD, [...] 04/17/2019 HUY STONE MD, Ot Z79.899 OTHER BOOTH CASHIER (CURRENT) DRUG THERAPY 04/17/2019 HUY STONE MD, [...] 04/17/2019 HUY STONE MD, Ot Z79.899 OTHER BOOTH CASHIER (CURRENT) DRUG THERAPY 04/17/2019 HUY STONE MD, [...] SECONDARY MALIGNANT NEOPLASM OF RETROPER 04/19/2019 HUY STNOE MD, Ot 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 04/19/2019 HUY STONE MD, Ot Z79.899 OTHER BOOTH CASHIER (CURRENT) DRUG THERAPY 04/19/2019 HUY STONE MD, [...] SECONDARY MALIGNANT NEOPLASM OF BONE 04/19/2019 HUY TSONE MD Ot R51 HEADACHE 04/19/2019 HUY STONE [...] 04/21/2019 HUY STONE MD Ot Z79.899 OTHER BOOTH CASHIER (CURRENT) DRUG THERAPY 04/21/2019 HUY STONE MD, [...] Desirae Ot J45.909 UNSPECIFIED ASTHMA, UNCOMPLICATED 04/21/2019 LEANAMYGET Desirae Ot K21.9 GASTRO-ESOPHAGEAL REFLUX DISEASE WITHOUT [...] 04/21/2019 HUY STONE MD, Ot Z79.899 OTHER HALF-WAY (CURRENT) DRUG THERAPY 04/21/2019 HUY STONE MD, [...] 04/21/2019 HUY STONE MD Ot Z79.899 OTHER BOOTH CASHIER (CURRENT) DRUG THERAPY 04/21/2019 HUY STONE MD, [...] 04/21/2019 HUY STONE MD Ot Z79.899 OTHER HALF-WAY (CURRENT) DRUG THERAPY 04/21/2019 HUY STONE MD, [...] 04/21/2019 HUY STONE MD, Ot Z79.899 OTHER HALF-WAY (CURRENT) DRUG THERAPY 04/21/2019 HUY STONE MD, [...] 04/22/2019 HUY STONE MD, Ot Z79.899 OTHER HALF-WAY (CURRENT) DRUG THERAPY 04/22/2019 HUY STONE MD, Ot Z90. 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 51 SECONDARY [...] 04/29/2019 HUY STONE MD, Ot Z79.899 OTHER HALF-WAY (CURRENT) DRUG THERAPY 04/29/2019 HUY STONE MD, [...] 04/29/2019 HUY STONE MD, Ot Z79.899 OTHER HALF-WAY (CURRENT) DRUG THERAPY 04/29/2019 HUY STONE MD, [...] HYDRONEPHROSIS W URETERAL STRICTURE, NEC 04/29/2019 HUY STNOE MD, Ot R11. 2 NAUSEA WITH VOMITING, [...] URINARY TRACT INFECTION, SITE NOT SPECIF 04/29/2019 UHY STONE MD, Ot R11. 2 NAUSEA WITH [...] 04/30/2019 HUY STONE MD, Ot Z79.899 OTHER BOOTH CASHIER (CURRENT) DRUG THERAPY 04/30/2019 HUY STONE MD, [...] 05/04/2019 HUY STONE MD, Ot Z79.899 OTHER HALF-WAY (CURRENT) DRUG THERAPY 05/04/2019 HUY STONE MD, [...] 05/04/2019 HUY STONE MD, Ot Z79.899 OTHER HALF-WAY (CURRENT) DRUG THERAPY 05/04/2019 HUY STONE MD, Ot Z85. 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 05/05/2019 HUY STONE MD, Ot Z79.899 OTHER HALF-WAY (CURRENT) DRUG THERAPY 05/05/2019 HUY STONE MD, [...] 05/05/2019 HUY STONE MD, Ot Z79.899 OTHER HALF-WAY (CURRENT) DRUG THERAPY 05/05/2019 HUY STONE MD, [...] IMM 05/06/2019 HUY STONE MD, Ot Z79.891 HALF-WAY (CURRENT) USE OF OPIATE ANALGE 05/06/2019 HUY STONE MD, Ot Z79.899 OTHER HALF-WAY (CURRENT) DRUG THERAPY 05/06/2019 HUY STONE MD, [...] 05/10/2019 HUY STONE MD, Ot Z79.899 OTHER HALF-WAY (CURRENT) DRUG THERAPY 05/10/2019 HUY STONE MD, [...] 05/10/2019 HUY STONE MD Ot Z79.899 OTHER HALF-WAY (CURRENT) DRUG THERAPY 05/10/2019 HUY STONE MD, [...] 05/11/2019 HUY STONE MD Ot Z79.899 OTHER HALF-WAY (CURRENT) DRUG THERAPY 05/11/2019 HUY STONE MD, [...] 05/11/2019 HUY STONE MD, Ot Z79.899 OTHER HALF-WAY (CURRENT) DRUG THERAPY 05/11/2019 HUY STONE MD, [...] 05/11/2019 HUY STONE MD Ot Z79.899 OTHER BOOTH CASHIER (CURRENT) DRUG THERAPY 05/11/2019 HUY STONE MD, [...] OTHER SPECIFIED DISEASES OF GALLBLADDER 05/11/2019 TICO AGLAN MD Ot R18.8 OTHER ASCITES 05/11/2019 PERDOMO DO, NICKIE D Ot R18. 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 8 OTHER ASCITES 05/20/2019 TICO GALAN MD Ot K76.89 OTHER SPECIFIED DISEASES OF LIVER 05/20/2019 TICO GALAN MD Ot K82.8 OTHER SPECIFIED DISEASES OF GALLBLADDER 05/20/2019 BRUEGGEMANN MD, TICO T Ot R18.8 OTHER ASCITES 05/22/2019 CADEN HARDIN MD, Ot C50.919 MALIGNANT NEOPLASM OF UNSP SITE OF UNSPE 05/22/2019 CADEN HARDIN MD, Ot C79.51 SECONDARY MALIGNANT NEOPLASM OF BONE 05/22/2019 CADEN HARDIN MD, Ot C79.89 SECONDARY MALIGNANT NEOPLASM OF OTHER SP 05/22/2019 CADEN HARDIN MD Ot E03.9 HYPOTHYROIDISM, UNSPECIFIED 05/22/2019 CADEN HARDIN MD Ot F32.9 MAJOR DEPRESSIVE DISORDER, SINGLE EPISOD 05/22/2019 CADEN HARDIN MD Ot F90.9 ATTENTION-DEFICIT HYPERACTIVITY DISORDER 05/22/2019 CADEN HARDIN MD, Ot I10 ESSENTIAL (PRIMARY) HYPERTENSION 05/22/2019 CADEN HARDIN MD Ot K21.9 GASTRO-ESOPHAGEAL REFLUX DISEASE WITHOUT 05/22/2019 CADEN HARDIN MD Ot N39.0 URINARY TRACT INFECTION, SITE NOT SPECIF 05/22/2019 CADEN HARDIN MD Ot R50.9 FEVER, UNSPECIFIED 05/22/2019 CADEN HARDIN MD Ot Z88.5 ALLERGY STATUS TO NARCOTIC AGENT STATUS 05/22/2019 CADEN HARDIN MD, Ot Z88.6 ALLERGY STATUS TO ANALGESIC AGENT STATUS 05/22/2019 CADEN HARDIN MD Ot Z88.8 ALLERGY STATUS TO OTH DRUG/MEDS/BIOL SUB 05/24/2019 HUY STONE MD Ot C50.911 MALIGNANT NEOPLASM OF UNSP SITE OF RIGHT 05/24/2019 HUY STONE MD Ot 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 89 OTHER SPECIFIED DISEASES OF INTESTINE 06/01/2019 HUY STONE MD, Ot R18. 8 OTHER ASCITES 06/01/2019 HUY STONE MD Ot Z95.828 PRESENCE OF OTHER VASCULAR IMPLANTS AND 06/01/2019 HUY STONE MD Ot Z98.890 OTHER SPECIFIED POSTPROCEDURAL STATES 06/02/2019 CADEN HARDIN MD, Ot C50.919 MALIGNANT NEOPLASM OF UNSP SITE OF UNSPE 06/02/2019 CADEN HARDIN MD, Ot C79.51 SECONDARY MALIGNANT NEOPLASM OF BONE 06/02/2019 CADEN HARDIN MD Ot C79.89 SECONDARY MALIGNANT NEOPLASM OF OTHER SP 06/02/2019 CADEN HARDIN MD Ot E03.9 HYPOTHYROIDISM, UNSPECIFIED 06/02/2019 CADEN HARDIN MD Ot F32.9 MAJOR DEPRESSIVE DISORDER, SINGLE EPISOD 06/02/2019 CADEN HARDIN MD Ot F90.9 ATTENTION-DEFICIT HYPERACTIVITY DISORDER 06/02/2019 CADEN HARDIN MD Ot I10 ESSENTIAL (PRIMARY) HYPERTENSION 06/02/2019 CADEN HARDIN MD Ot K21.9 GASTRO-ESOPHAGEAL REFLUX DISEASE WITHOUT 06/02/2019 CADEN HARDIN MD Ot N39.0 URINARY TRACT INFECTION, SITE NOT SPECIF 06/02/2019 CADEN HARDIN MD Ot R50.9 FEVER, UNSPECIFIED 06/02/2019 CADEN HARDIN MD, Ot Z88.5 ALLERGY STATUS TO NARCOTIC AGENT STATUS 06/02/2019 CADEN HARDIN MD, Ot Z88.6 ALLERGY STATUS TO ANALGESIC AGENT STATUS 06/02/2019 CADEN HARDIN MD, Ot Z88.8 ALLERGY STATUS TO OTH DRUG/MEDS/BIOL SUB 06/02/2019 HUY STONE MD Ot C50.911 MALIGNANT NEOPLASM OF UNSP SITE OF RIGHT 06/02/2019 HUY STONE MD Ot 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 8 OTHER ASCITES 06/03/2019 TICO GALAN MD Ot K76.89 OTHER SPECIFIED DISEASES OF LIVER 06/03/2019 TICO GALAN MD Ot K82.8 OTHER SPECIFIED DISEASES OF GALLBLADDER 06/03/2019 TICO GALAN MD Ot R18.8 OTHER ASCITES 06/03/2019 PERDOMO DO, NICKIE D Ot R18. 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 89 OTHER SPECIFIED DISEASES OF INTESTINE 06/03/2019 HUY STONE MD Ot R18. 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 OTHER ASCITES 06/08/2019 HUY STONE MD, Ot C50.911 MALIGNANT NEOPLASM OF UNSP SITE OF RIGHT 06/08/2019 HUY STONE MD, Ot 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 06/08/2019 HUY STONE MD, Ot G93. 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 89 OTHER SPECIFIED DISEASES OF INTESTINE 06/08/2019 HUY STONE MD, Ot R18. 8 OTHER ASCITES 06/08/2019 HUY STONE MD, Ot Z95.828 PRESENCE OF OTHER VASCULAR IMPLANTS AND 06/08/2019 HUY STONE MD, Ot Z98.890 OTHER SPECIFIED POSTPROCEDURAL STATES Procedures Code Description Performed By Per formed On [id number] DR GRANADOS OF PERITONEAL CAVITY, PERCUTANE 04/19/2019 [id number] IN SERTION OF INFUSION DEV INTO SUP VENA 04/20/2019 [id number] IN SERT OF TUNNEL VAD INTO CHEST [...] 102 mmol/L 98-107 Carbon dioxide 19 mmol/L -32 Serum or plasma anion gap determination (moles/volume) [...] OF GROWTH Isolated NRG Bacterial blood culture [id number] NRG Bacterial blood culture - 04/28/19 20:58 [...] culture - 04/29/19 02:20 Bacterial urine culture [id number] NRG COLONY COUNT 50,000 CFU/ML NRG FTX;REPORTABLE [...] LEUKO REDUCED AS1 T RANSFUSED 04/29/19 1455 NR Blood type T Indirect antibody screen pa ashwin - 04/29/19 08:57 WRISTBAND NUMBER [id number] NRG ABO+Rh group OP NRG Blood group [...] - 05/22/19 15:39 FREE TEXT EXTERNAL SUSCEPTIBILITY REPORTED 05/25/19 9:05 NRG QUANTITY OF GROWTH Isolated NRG Bacterial blood culture [id number] [facility] FREE TEXT ENTRY 2 PRELIM RAPID ID BY VCP [id number], [phone] NR FREE TEXT ENTRY 3 ID CONFIRMED BY RML 3- 15:05 NRG RML [facility] - 05/22/19 15:3 9 Gentamicin susceptibility test by minimum inhibitory c oncentration <= NRG Levofloxacin susceptibility test by minimum inhibitory concentration <= NRG Tobramycin susceptibility test by minimum inhibitory c oncentration <= NRG Piperacillin/tazobactam susceptibility t est by minimum inhibitory concentration = NRG Ciprofloxacin susceptibility test by minimum inhibitor y concentration <= NRG Meropenem susceptibility test by minimum inhibitory co ncentration <= NRG Aztreonam susceptibility test by minimum inhibitory co ncentration 8 NRG Cefepime susceptibility test by minimum inhibitory con centration 4 NRG Imipenem susceptibility test by minimum inhibitory con centration 2 NRG Ceftazidime susceptibility test by minimum inhibitory concentration <= NRG Bacterial blood culture - 05/22/19 16:25 [...] culture - 05/22/19 17:31 Bacterial urine culture [id number] NRG COLONY COUNT >100,000/ML NRG FTX;REPORTABLE REPORTED BY P NRG FREE TEXT ENTRY 2 PRELIM RAPID ID BY [facility] 3-8-20, 1 [phone] NRG FREE TEXT ENTRY 3 PRELIM RAPID ID BY VCP [id number],13 17 NRG FREE TEXT ENTRY 4 ID [...] Status Pt. Type Provider Facility Loc./Unit Complaint [id number] 05/25/2019 10:37:09 Document Registration [id number] 04/15/2019 13:01:31 Document Registration [id number] 04/15/2019 13:01:30 Document Registration [id number] 04/15/2019 13:01:29 Document Registration [id number] 05/25/2019 10:45:15 05/25/2019 23:59: 59 CLS Outpatient Home Frank [id number] 04/15/2019 15:27:43 04/15/2019 23:59: 59 CLS Outpatient EITAN KRUGER [id number] 04/15/2019 11:36:00 04/15/2019 23:59: 59 CLS Outpatient Home Frank [id number] 05/24/2019 12:58:00 17:10:00 DIS Outpatient BERTHA FRAUSTO, HUY [facility] RAD ASCITES,CA OF RT BREAST ,SECONDARY CA OF BONE [id number] 05/22/2019 15:00:00 18:18:00 DIS Emergency WILFRED FRAUSTO, CADEN Zuleta [facility] ER FEVER 102 / NEHA MO PT [id number] 05/12/2019 13:00:00 02/26/2 020 23:59:59 CLS Outpatient NICKIE PERDOMO DO [facility] RAD CANCER OF RT BREAST,SEC ONDARY CANCER OF BONE [id number] 05/12/2019 12:10:00 23:59:59 CLS Outpatient HUY STONE MD [facility] RAD CA OF RT BREAST,SECONDA RY CA OF BONE [id number] 05/11/2019 07:45:00 23:59:59 CLS Outpatient HUY STONE MD [facility] RAD CANCER OF RT BREAST,DIPranav ZINESS [id number] 05/05/2019 17:14:00 12:30:00 DIS Outpatient HUY STONE MD [facility] 4TH N/V [id number] 04/28/2019 21:59:00 17:52:00 DIS Inpatient HUY STONE MD [facility] 4TH NAUSEA,VOMITING,BREAST CA [id number] 04/21/2019 10:57:00 22:00:00 DIS Outpatient HUY STONE MD [facility] 4TH SWB, NAUSEA, VOMITING, BREAST CANCER [id number] 04/18/2019 12:04:00 10:50:00 DIS Inpatient WILFREDO PAREDES [facility] 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, METAST ATIC BREAST CA [id number] 04/14/2019 12:38:00 23:59:59 CLS Outpatient NICKIE PERDOMO DO [facility] RAD ABD OSCITES [id number] 04/14/2019 07:01:00 23:59:59 CLS Outpatient TICO GALAN MD [facility] RAD RUQ PAIN [id number] 04/13/2019 19:02:00 22:48:00 DIS Emergency TICO GALAN MD [facility] ER ABD PAIN [id number] 04/02/2019 12:34:00 23:59:59 CLS Outpatient HUY STONE MD [facility] RAD CANCER OF RIGHT BREAST, SECONDARY CANCER OF BONE [id number] 2019 10:26:00 23:59:59 CLS Outpatient HUY STONE MD [facility] RAD CANCER OF RT BREAST [id number] 03/23/2019 14:52:00 23:59:59 CLS Outpatient HUY STONE MD [facility] RAD CANCER OF RT BREAST,DIZ ZINESS [id number] 03/01/2019 14:00:00 00:01:00 DIS Outpatient HUY STONE MD [facility] ONC [id number] 12/02/2018 15:28:00 00:01:00 DIS Outpatient HUY STONE MD [facility] ONC [id number] 09/02/2018 13:53:00 08:35:00 DIS Outpatient ERIC BRADY MD, [facility] ONC [id number] 09/01/2018 08:17:00 00:01:00 DIS Outpatient HUY STONE MD [facility] ONC [id number] 05/13/2018 13:39:00 00:01:00 DIS Outpatient HUY STONE MD [facility] ONC [id number] 03/02/2018 10:55:00 018 10:56:00 DIS Outpatient HUY STONE MD [facility] ONC [id number] 06/11/2019 16:58:[address] Emergency CADEN HARDIN MD [facility] ER ABD PAIN [id number] 06/10/2019 10:15:[address] Outpatient HUY STONE MD [facility] ONC
[2019-06-11] MEDS ORDERED: fentaNYL INJECTION 100 MCG/2 ML AMP IVP STA (17:11)
[2019-06-11] MEDS ORDERED: ONDANSETRON 4 MG/2 ML (SDV) Z0FRAN IVP ONE ×2 (17:15→17:45)
--- NOTE | 2019-06-11 17:20 | ED Abdominal Pain ---
General Chief Complaint: Abdominal/GI Problems Stated Complaint: ABD PAIN Source of Information: Patient Exam Limitations: No Limitations (CADEN HARDIN MD) History of Present Illness Date Seen by Provider: Jun 11, 2019 Time Seen by Provider: 17:04 Initial Comments Here with abdominal pain that is diffuse. Patient has history of breast cancer with metastasis throughout the abdomen and bone. Had chemotherapy earlier this week and had pain onset afterwards. She was finally able to get control the pain for one day and then over the last couple days has gotten progressively worse until unbearable today. Does have abdominal ascites and has moderate distention and abdomen is tight. Reports pain generalized throughout the abdomen is significant aching. Last bowel movement today. She did have episode of nausea and vomiting this afternoon. She did take Zofran orally at 1:30 PM. Denies fever, chills, sore throat but does have a mild runny nose that she's had for a while. Timing/Duration: 2-3 Days, Getting Worse Severity/Quality: Moderate, Severe, Aching Location: Generalized Abdomen Radiation: Flank (bilateral especially at the rib margins) Associated Symptoms: No Chest Pain, No Fever/Chills; Nausea/Vomiting; No Shortness of Air; Weakness (CADEN HARDIN MD) Allergies and Home Medications Allergies Coded Allergies: morphine (Verified Allergy, Intermediate, Itching, 04/18/19) aspirin (Verified Allergy, Unknown, 01/13/18) prochlorperazine (Verified Allergy, Unknown, 06/11/19) Tolerates Phenergan well Home Medications Acetaminophen 500 Mg Tablet, 500 MG PO Q6H PRN for PAIN-MILD (1-4), (Reported) Dextroamphetamine/Amphetamine 30 Mg Cap.er.24h, 30 MG PO DAILY, (Reported) Diphenhydramine HCl 25 Mg Capsule, 50 MG PO Q4H PRN for ALLERGY SYMPTOMS, (Reported) Fluoxetine HCl 40 Mg Capsule, 40 MG PO DAILY Prescribed by: ASYA STEPHENS on 05/05/191814 Gabapentin 300 Mg Capsule, 300 MG PO HS, (Reported) Ibuprofen 200 Mg Tablet, 400 MG PO Q6H PRN for PAIN-MILD (1-4), (Reported) Levofloxacin 750 Mg Tablet, 750 MG PO DAILY Prescribed by: CADEN AHRDIN on 05/22/19 180 Levothyroxine Sodium 25 Mcg Tablet, 25 MCG PO DAILY, (Reported) Omeprazole 40 Mg Capsule.dr, 40 MG PO HS, (Reported) Oxycodone HCl/Acetaminophen 1 Each Tablet, 1 TAB PO HS PRN for PAIN-MODERATE (5- 7), (Reported) Promethazine HCl 25 Mg Tablet, 25 MG PO Q6H PRN for NAUSEA/VOMITING Prescribed by: ASYA STEPHENS on 05/05/19 1806 Sucralfate 1 Gm Tablet, 1 GM PO ACHS Prescribed by: MITCH CROCKETT on 05/06/19 1059 Zolpidem Tartrate 12.5 Mg Tab.mphase, 12.5 MG PO HS, (Reported) Patient Home Medication List Home Medication List Reviewed: Yes (CADEN HARDIN MD) Review of Systems Review of Systems Constitutional: see HPI; No chills, No fever EENTM: No Symptoms Reported Respiratory: No Symptoms Reported Cardiovascular: No Symptoms Reported Gastrointestinal: See HPI, Abdomen Distended, Abdominal Pain, Nausea, Vomiting Genitourinary: No Symptoms Reported Musculoskeletal: back pain; No muscle pain Skin: no symptoms reported Psychiatric/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: No Symptoms Reported (CADEN HARDIN MD) All Other Systems Reviewed Negative Unless Noted: Yes (CADEN HARDIN MD) Past Tryhgrt-Mvxqfa-Rsnfwb Hx Past Med/Social Hx: Reviewed Nursing Past Med/Soc Hx (CADEN HARDIN MD) Patient Social History Alcohol Use: Denies Use Recreational Drug Use: No Smoking Status: Never a Smoker 2nd Hand Smoke Exposure: No Recent Foreign Travel: No Contact w/Someone Who Travel: No Recent Hopitalizations: No (CADEN HARDIN MD) Immunizations Up To Date Tetanus Booster (TDap): Unknown PED Vaccines UTD: Yes (CADEN HARDIN MD) Seasonal Allergies Seasonal Allergies: No (CADEN HARDIN MD) Past Medical History Surgeries: Yes (LUMPECTOMY AND MASECTOMY WITH RECONSTRUCTION ON RIGHT) Breast, Section, 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 Respiratory: Yes Asthma Cardiac: Yes Hypertension 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 Genitourinary: Yes (possible left ureteral obstruction) Gastrointestinal: Yes Gastroesophageal Reflux, Gall Bladder Disease Musculoskeletal: Yes (metastases to bone) Endocrine: Yes Hypothyroidsim HEENT: No Cancer: Yes (RECENT METS DIAGNOSIS) Bone, Breast Did You Recieve Any Treatments: Yes What Type of Treatment Did You: Chemotherapy Psychosocial: Yes ADD/ADHD, Sleep Difficulties, Depression Integumentary: No Blood Disorders: No (CADEN HARDIN MD) Family Medical History Reviewed Nursing Family Hx (CADEN HARDIN MD) No Pertinent Family Hx (CADEN HARDIN MD) Physical Exam Vital Signs Vital Signs - First Documented 06/11/19 17:03 Temp 36.3 Pulse 115 Resp 20 B/P (MAP) 132/98 (109) Pulse Ox 96 O2 Delivery Room Air (MORGAN LORA MD) Vital Signs Capillary Refill : (CADEN HARDIN MD) Height/Weight/BMI Height: '" Weight: lbs. oz. kg; 22.00 BMI Method: General Appearance: WD/WN, no apparent distress HEENT: PERRL/EOMI, pharynx normal Neck: full range of motion, supple Respiratory: lungs clear, normal breath sounds Cardiovascular: no murmur, tachycardia Peripheral Pulses: 2+ Dorsalis Pedis (R), 2+ Left Dors-Pedis (L), 2+ Radial Pulses (R), 2+ Radial Pulses (L) Gastrointestinal: distended, tenderness, other (abdomen overall very tight and distended) Extremities: non-tender, normal inspection, pedal edema (3+ bilateral lower to mid tibia) Back: normal inspection, no CVA tenderness, no vertebral tenderness Neurologic/Psychiatric: alert, oriented x 3 Skin: normal color, warm/dry (CADEN HARDIN MD) Progress/Results/Core Measures Results/Orders Lab Results Laboratory Tests Test 06/11/19 17:15 06/11/19 18:42 Range/Units White Blood Count 2.1 L 4.3-11.0 10^3/uL Red Blood Count 3.58 L 4.35-5.85 10^6/uL Hemoglobin 9.4 L 11.5-16.0 G/DL Hematocrit 30 L 35-52 % Mean Corpuscular Volume 83 80-99 FL Mean Corpuscular Hemoglobin 26 25-34 PG Mean Corpuscular Hemoglobin Concent 32 32-36 G/DL Red Cell Distribution Width 22.4 H 10.0-14.5 % Platelet Count 437 H 130-400 10^3/uL Mean Platelet Volume 9.3 7.4-10.4 FL Neutrophils (%) (Auto) 41 L 42-75 % Lymphocytes (%) (Auto) 31 12-44 % Monocytes (%) (Auto) 27 H 0-12 % Eosinophils (%) (Auto) 1 0-10 % Basophils (%) (Auto) 1 0-10 % Neutrophils # (Auto) 0.8 L 1.8-7.8 X 10^3 Lymphocytes # (Auto) 0.7 L 1.0-4.0 X 10^3 Monocytes # (Auto) 0.6 0.0-1.0 X 10^3 Eosinophils # (Auto) 0.0 0.0-0.3 10^3/uL Basophils # (Auto) 0.0 0.0-0.1 10^3/uL Neutrophils % (Manual) 39 % Lymphocytes % (Manual) 32 % Monocytes % (Manual) 22 % Eosinophils % (Manual) 2 % Myelocytes % 1 % Band Neutrophils 4 % Nucleated Red Blood Cells 1 Polychromasia MODERATE Hypochromasia MODERATE Anisocytosis MARKED Sodium Level 128 L 135-145 MMOL/L Potassium Level 3.1 L 3.6-5.0 MMOL/L Chloride Level 95 L 98-107 MMOL/L Carbon Dioxide Level 20 L 21-32 MMOL/L Anion Gap 13 5-14 MMOL/L Blood Urea Nitrogen 10 7-18 MG/DL Creatinine 0.77 0.60-1.30 MG/DL Estimat Glomerular Filtration Rate > 60 BUN/Creatinine Ratio 13 Glucose Level 114 H 70-105 MG/DL Calcium Level 8.6 8.5-10.1 MG/DL Corrected Calcium 9.6 8.5-10.1 MG/DL Total Bilirubin 0.4 0.1-1.0 MG/DL Aspartate Amino Transf (AST/SGOT) 22 5-34 U/L Alanine Aminotransferase (ALT/SGPT) 10 0-55 U/L Alkaline Phosphatase 95 40-136 U/L Total Protein 5.3 L 6.4-8.2 GM/DL Albumin 2.7 L 3.2-4.5 GM/DL Lipase 18 8-78 U/L Urine Color YELLOW Urine Clarity CLEAR Urine pH 6.0 5-9 Urine Specific Wilson 1.010 L 1.016-1.022 Urine Protein 1+ H NEGATIVE Urine Glucose (UA) NEGATIVE NEGATIVE Urine Ketones TRACE H NEGATIVE Urine Nitrite NEGATIVE NEGATIVE Urine Bilirubin 1+ H NEGATIVE Urine Urobilinogen 0.2 < = 1.0 MG/DL Urine Leukocyte Esterase NEGATIVE NEGATIVE Urine RBC (Auto) 1+ H NEGATIVE Urine RBC 5-10 H /HPF Urine WBC 2-5 /HPF Urine Squamous Epithelial Cells 5-10 /HPF Urine Crystals NONE /LPF Urine Bacteria TRACE /HPF Urine Casts NONE /LPF Urine Mucus NEGATIVE /LPF Urine Culture Indicated NO (MORGAN LORA MD) My Orders Orders - MORGAN LORA MD Morphine Injection (Morphine Injection (06/11/19 18:16) Promethazine Injection (Phenergan Injec (06/11/19 19:00) (MORGAN LORA MD) Medications Given in ED Current Medications Medications Dose Ordered Sig/Ninfa Route Start Time Stop Time Status Last Admin Dose Admin Diphenhydramine HCl 25 mg ONCE ONCE IVP 06/11/19 18:15 06/11/19 18:16 DC 06/11/19 18:13 25 MG Iohexol 100 ml ONCE ONCE IV 06/11/19 18:15 06/11/19 18:16 DC 06/11/19 18:32 92 ML Ondansetron HCl 4 mg ONCE ONCE IVP 06/11/19 17:15 06/11/19 17:16 DC 06/11/19 17:19 4 MG Ondansetron HCl 4 mg ONCE ONCE IVP 06/11/19 17:45 06/11/19 17:46 DC 06/11/19 17:37 4 MG Promethazine HCl 12.5 mg ONCE ONCE IVP 06/11/19 19:00 06/11/19 19:01 DC 06/11/19 18:53 12.5 MG Sodium Chloride 100 ml ONCE ONCE IV 06/11/19 18:15 06/11/19 18:16 DC 06/11/19 18:32 80 ML (MORGAN LORA MD) Vital Signs/I&O 06/11/19 17:03 Temp 36.3 Pulse 115 Resp 20 B/P (MAP) 132/98 (109) Pulse Ox 96 O2 Delivery Room Air (MORGAN LORA MD) Progress Progress Note : Progress Note Seen and evaluated. IV via port access, labs, fentanyl 75 g IV and Zofran 4 mg IV ordered. Monitor patient. (CADEN HARDIN MD) Progress Note #1: Time: 18:51 Progress Note Care of this patient was assumed from Dr. Hardin at shift change. Verbal report was received. I reviewed the labs and vital signs. CT scan ordered by Dr. Hardin has been reviewed and report is pending. Patient has returned from CT scan and has rebounding abdominal pain and nausea. She has received Benadryl for the nausea. We will add morphine for pain control. She does have history of itching with morphine but she has already received Benadryl. Phenergan will be used for nausea. She has an allergy to Compazine but states she tolerates Phenergan well. Progress Note #2: Time: 20:07 Progress Note Symptoms are controlled at this time. Small bowel obstruction was identified on the CT scan. NG tube has been placed. It was advanced 4-5 cm after review of x-ray. Case was discussed with Dr. Barry who would like to treat conservatively as she is not a good surgical candidate given her history. He will address the ascites in the morning. Case was discussed with Dr. Arteaga as well. I did discuss CODE STATUS with the patient. She is "not ready to give up fighting" at this time. I discussed what the possible outcomes of a CODE BLUE scenario might be to her. I introduced the topic of hospice and the possibility that the cancer may cause problems that are not fixable. Her was involved in this discussion as well. would like to be kept closely updated on her circumstances and was very understanding of the visitor limitation policy. Sodium and potassium replacement will be addressed in the IV fluids. (MORGAN LORA MD) Diagnostic Imaging Diagonstic Imaging: CT Plain Films/CT/US/NM/MRI: abdomen, pelvis Comments CT abdomen and pelvis viewed by me and report reviewed. Discussed with radiologist. See report below: NAME: SUZIE MILLER [facility] REC#: [id number] PT STATUS: REG ER : 1960 PHYSICIAN: CADEN HARDIN MD ADMIT DATE: 06/11/19/ER Signed Date of Exam:06/11/19 CT ABDOMEN/PELVIS W CLINICAL INDICATION: Patient had chemotherapy, last dose today, for breast cancer metastatic to bone. Carcinomatosis of the abdomen, abdominal swelling, pain, nausea. Past surgical history of right breast, and hysterectomy. EXAM: Axial CT scan of the abdomen performed with 92 cc of Omnipaque 350 IV contrast. Sagittal and coronal reformatted images were created. Auto Exposure Controls were utilized during the CT exam to meet ALARA standards for radiation dose reduction. COMPARISON: CT scan of the chest, abdomen and pelvis performed with contrast dated 05/12/2019. FINDINGS: There is progression of parenchymal bands involving both lung bases possibly representing atelectasis. There is development of small bilateral pleural effusions. There is interval development of large amounts of ascites. Again seen peritoneal wall enhancement and thickening with no enhancing nodule or peritoneal mass seen. Again seen are mesenteric thickening and stranding. There is no significant change to the multiple circumscribed low-density lesions throughout the liver which may represent cysts. The spleen, pancreas, adrenal glands and gallbladder are unremarkable. There is fluid distended stomach and small bowel seen. There is a moderate amount of stool throughout the colon which is nondilated. There is decompression of distal small bowel seen overlying the right lower quadrant region. There is transition of dilated loops of small bowel seen in the right posterior mid abdominal region on series 4, image 57 representing transition point. There is no definitive visualized mass seen near the transition point, but it is tortuous in the region. There is fecalization of intestinal contents seen just proximal to the transition point. This finding is new compared to the prior CT scan. Small hiatal hernia is noted. Interval placement of left double-J ureteral stent. There is mild to moderate left hydronephrosis which appears similar to the prior CT scan. There is fluid contrast level seen in left kidney suggesting impaired function. There is no definite significant lymphadenopathy seen. There is fluid within the dilated distal esophagus. Anasarca is noted which has progressed in the interim. There is diffuse heterogeneous sclerosis seen throughout the visualized axial skeleton. These findings may be related to patient's history of osseous metastatic disease. IMPRESSION: 1: There is interval development of large amounts of ascites. There is fat stranding and thickening of the omentum noted. There is peritoneal wall enhancement again seen and slight thickening with no nodular peritoneal mass seen. Malignant ascites is of concern. 2: There is interval development of high-grade small bowel obstruction with transition point seen in the mid to distal ileum. There is no definite mass seen in the region of transition point, but there is tortuosity in the region. 3: There is moderate amount of stool seen throughout the colon. 4: Interval development of small bilateral pleural effusions and bibasilar atelectasis. 5: Diffuse heterogeneous and sclerotic axial skeleton which may related to diffuse osseous metastatic disease. Results of this report were discussed with Dr. Morgan Lora via the telephone on 06/11/2019 at 1900 hours. Dictated by: Dictated on workstation # [id number] Dict: 06/11/19 184 Trans: 06/11/191908 [facility] [id number] Interpreted by: FABIO KERNS MD Electronically signed by: FABIO KERNS MD 06/11/191908 Reviewed: Reviewed by Me, Discussed w/Radiologist, Reviewed/Discussed Diagonstic Imaging: Xray Plain Films/CT/US/NM/MRI: chest Comments X-ray viewed by me and report reviewed. See report below: NAME: SUZIE MILLER [facility] REC#: [id number] PT STATUS: REG ER : 1960 PHYSICIAN: JAMILAH FRENCH NETTING WEAVER ADMIT DATE: 06/11/19/ER Signed Date of Exam:06/11/19 CHEST 1 VIEW, AP/PA ONLY EXAMINATION: Chest 1 view HISTORY: NG tube placement. COMPARISON: Chest radiograph on 05/22/2019. FINDINGS: There has been interval placement of enteric tube with the tip overlying the proximal stomach. Stable right port. Lung volumes are somewhat low, stable compared to the prior exam. No focal consolidation or mass. Stable cardiac silhouette. No acute osseous abnormalities. No large pleural effusion or pneumothorax. IMPRESSION: 1. Interval placement of enteric tube with the tip overlying the proximal stomach. Stable right port. 2. Continued low lung volumes. No focal consolidations. Dictated by: Dictated on workstation # [id number] Dict: 06/11/191949 Trans: 06/11/191958 [facility] [id number] Interpreted by: ISAC NARAYANAN DO Electronically signed by: ISAC NARAYANAN DO 06/11/191958 (MORGAN LORA MD) Departure Communication (Admissions) Time/Spoke to Admitting Phy: 19:40 Dr. Arteaga Time/Spoke to Consulting Phy: 19:05 Dr. Barry (MORGAN LORA MD) Impression Primary Impression: Small bowel obstruction Additional Impressions: Ascites Qualified Codes: R18.0 - Malignant ascites Metastatic cancer Hyponatremia Hypokalemia Nausea and vomiting Qualified Codes: R11.2 - Nausea with vomiting, unspecified Disposition: ADMITTED INPATIENT Condition: Improved Admissions Decision to Admit Reason: Admit from ER (General) Decision to Admit/Date: Jun 11, 2019 Time/Decision to Admit Time: 19:00 (MORGAN LORA MD) Departure-Patient Inst. Referrals: FADY HUFFMAN DO (PCP/Family) Primary Care Physician CADEN HARDIN MD Jun 11, 2019 17:20 MORGAN LORA MD Jun 11, 2019 18:53
[2019-06-11 17:28] LABS: BASOPHILS % (AUTO) 1 % (0-10); EOSINOPHILS % (AUTO) 1 % (0-10); HEMATOCRIT 30 % (35-52); HEMOGLOBIN 9.4 G/DL (11.5-16.0); LYMPHOCYTES # (AUTO) 0.7 X 10^3 (1.0-4.0); LYMPHOCYTES % (AUTO) 31 % (12-44); MEAN CORPUSCULAR HEMOGLOBIN 26 PG (25-34); MEAN CORPUSCULAR HGB CONC 32 G/DL (32-36); MEAN CORPUSCULAR VOLUME 83 FL (80-99); MEAN PLATELET VOLUME 9.3 FL (7.4-10.4); MONOCYTES # (AUTO) 0.6 X 10^3 (0.0-1.0); MONOCYTES % (AUTO) 27 % (0-12); NEUTROPHILS # (AUTO) 0.8 X 10^3 (1.8-7.8); NEUTROPHILS % (AUTO) 41 % (42-75); PLATELET COUNT 437 10^3/uL (130-400); RED CELL DISTRIBUTION WIDTH 22.4 % (10.0-14.5); WHITE BLOOD COUNT 2.1 10^3/uL (4.3-11.0)
[2019-06-11 17:49] LABS: ALANINE AMINOTRANSFERASE 10 U/L (0-55); ALBUMIN 2.7 GM/DL (3.2-4.5); ALKALINE PHOSPHATASE 95 U/L (40-136); BILIRUBIN,TOTAL 0.4 MG/DL (0.1-1.0); BUN/CREATININE RATIO 13; CALCIUM 8.6 MG/DL (8.5-10.1); CARBON DIOXIDE 20 MMOL/L (21-32); CHLORIDE 95 MMOL/L (98-107); CREATININE SERUM 0.77 MG/DL (0.60-1.30); GFR ESTIMATED > 60; GLUCOSE 114 MG/DL (70-105); LIPASE 18 U/L (8-78); POTASSIUM 3.1 MMOL/L (3.6-5.0); SODIUM 128 MMOL/L (135-145); TOTAL PROTEIN 5.3 GM/DL (6.4-8.2)
[2019-06-11 18:13] LABS: BAND NEUTROPHILS 4 %; EOSINOPHILS % (MANUAL) 2 %; LYMPHOCYTES % (MANUAL) 32 %; MONOCYTES % (MANUAL) 22 %; NEUTROPHILS % (MANUAL) 39 %; NUCLEATED RED BLOOD CELLS 1
[2019-06-11 18:14] LABS: ANISOCYTOSIS MARKED; HYPOCHROMASIA MODERATE; MYELOCYTES % 1 %; POLYCHROMASIA MODERATE
[2019-06-11] MEDS ORDERED: HOLD METFORMIN - RECEIVED CONTRAST 20 ML VIAL IV SCH (18:15)
[2019-06-11] MEDS ORDERED: IOHEXOL 350 MG/ML 100 ML (OMNIPAQUE 350) VIAL IV ONE (18:15)
[2019-06-11] MEDS ORDERED: diphenhydrAMINE 50 MG/ML INJ (BENADRYL) IVP ONE (18:15)
[2019-06-11] MEDS ORDERED: NS 100 ML (IVPB) BAG IV ONE (18:15)
[2019-06-11] MEDS ORDERED: morphine INJ 10 MG/ML 1ML (SYR OR VIAL) IVP STA ×2 (18:16→20:54)
[2019-06-11 18:51] LABS: CLARITY,URINE CLEAR; COLOR,URINE YELLOW; GLUCOSE, URINE (UA) NEGATIVE (NEGATIVE); KETONES,URINE TRACE (NEGATIVE); LEUKOCYTE ESTERASE ,URINE NEGATIVE (NEGATIVE); NITRITE,URINE NEGATIVE (NEGATIVE); PROTEIN,URINE 1+ (NEGATIVE)
[2019-06-11] MEDS ORDERED: PROMETHAZINE INJ 25 MG/ML (PHENERGAN) AMP IVP ONE (19:00)
[2019-06-11 19:02] LABS: BACTERIA,URINE TRACE /HPF; BILIRUBIN,URINE 1+ (NEGATIVE)
--- NOTE | 2019-06-11 19:08 | Diagnostic Imaging Report ---
CLINICAL INDICATION: Patient had chemotherapy, last dose today, for breast cancer metastatic to bone. Carcinomatosis of the abdomen, abdominal swelling, pain, nausea. Past surgical history of right breast, and hysterectomy. EXAM: Axial CT scan of the abdomen performed with 92 cc of Omnipaque 350 IV contrast. Sagittal and coronal reformatted images were created. Auto Exposure Controls were utilized during the CT exam to meet ALARA standards for radiation dose reduction. COMPARISON: CT scan of the chest, abdomen and pelvis performed with contrast dated 05/12/2019. FINDINGS: There is progression of parenchymal bands involving both lung bases possibly representing atelectasis. There is development of small bilateral pleural effusions. There is interval development of large amounts of ascites. Again seen peritoneal wall enhancement and thickening with no enhancing nodule or peritoneal mass seen. Again seen are mesenteric thickening and stranding. There is no significant change to the multiple circumscribed low-density lesions throughout the liver which may represent cysts. The spleen, pancreas, adrenal glands and gallbladder are unremarkable. There is fluid distended stomach and small bowel seen. There is a moderate amount of stool throughout the colon which is nondilated. There is decompression of distal small bowel seen overlying the right lower quadrant region. There is transition of dilated loops of small bowel seen in the right posterior mid abdominal region on series 4, image 57 representing transition point. There is no definitive visualized mass seen near the transition point, but it is tortuous in the region. There is fecalization of intestinal contents seen just proximal to the transition point. This finding is new compared to the prior CT scan. Small hiatal hernia is noted. Interval placement of left double-J ureteral stent. There is mild to moderate left hydronephrosis which appears similar to the prior CT scan. There is fluid contrast level seen in left kidney suggesting impaired function. There is no definite significant lymphadenopathy seen. There is fluid within the dilated distal esophagus. Anasarca is noted which has progressed in the interim. There is diffuse heterogeneous sclerosis seen throughout the visualized axial skeleton. These findings may be related to patient's history of osseous metastatic disease. IMPRESSION: 1: There is interval development of large amounts of ascites. There is fat stranding and thickening of the omentum noted. There is peritoneal wall enhancement again seen and slight thickening with no nodular peritoneal mass seen. Malignant ascites is of concern. 2: There is interval development of high-grade small bowel obstruction with transition point seen in the mid to distal ileum. There is no definite mass seen in the region of transition point, but there is tortuosity in the region. 3: There is moderate amount of stool seen throughout the colon. 4: Interval development of small bilateral pleural effusions and bibasilar atelectasis. 5: Diffuse heterogeneous and sclerotic axial skeleton which may related to diffuse osseous metastatic disease. Results of this report were discussed with Dr. Morgan Lora via the telephone on 06/11/2019 at 1900 hours. Dictated by: Dictated on workstation # [id number]
--- NOTE | 2019-06-11 19:53 | Diagnostic Imaging Report ---
EXAMINATION: Chest 1 view HISTORY: NG tube placement. COMPARISON: Chest radiograph on 05/22/2019. FINDINGS: There has been interval placement of enteric tube with the tip overlying the proximal stomach. Stable right port. Lung volumes are somewhat low, stable compared to the prior exam. No focal consolidation or mass. Stable cardiac silhouette. No acute osseous abnormalities. No large pleural effusion or pneumothorax. IMPRESSION: 1. Interval placement of enteric tube with the tip overlying the proximal stomach. Stable right port. 2. Continued low lung volumes. No focal consolidations. Dictated by: Dictated on workstation # [id number]
--- OUTSIDE RECORDS SUMMARY | 2019-06-11 20:26 | XMS REPORT | Continuity of Care Document ---
Demographics Preferred Language Unknown Marital Status Unknown Presybeterian Affiliation Unknown Race Unknown Ethnic Group Unknown Author Organization Unknown Address Unknown Phone Unavailable Allergies Active Description Code Type Severity Reaction Onset Reported/Identified Relationship to Patient Clinical Status Yes ASPIRIN 32465623 DRUG N/A N/A Yes COMPAZINE 22067722 DRUG N/A N/A Yes PROCHLORPERAZINE [id number] DRUG N/A N/A Yes aspirin [id number] Drug Allergy Unknown N/A 01/13/2018 Yes morphine [id number] Drug Allergy Moderate Itching 04/18/2019 Yes prochlorperazine [id number] Drug Allergy Unknown N/A 06/11/2019 Medications There is no data. 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 02/11/2018 HUY STONE MD Ot Z79.899 OTHER PERL DEVELOPER (CURRENT) DRUG THERAPY 02/11/2018 HUY STONE MD [...] 02/17/2018 HUY STONE MD Ot Z79.899 OTHER PERL DEVELOPER (CURRENT) DRUG THERAPY 02/17/2018 HUY STONE MD [...] 03/02/2018 HUY STONE MD Ot Z79.899 OTHER CORRECTION (CURRENT) DRUG THERAPY 03/02/2018 HUY STONE MD [...] 03/02/2018 HUY STONE MD Ot Z79.899 OTHER PERL DEVELOPER (CURRENT) DRUG THERAPY 03/02/2018 HUY STONE MD [...] 03/03/2018 HUY STONE MD Ot Z79.899 OTHER PERL DEVELOPER (CURRENT) DRUG THERAPY 03/03/2018 HUY STONE MD [...] 04/13/2018 HUY STONE MD Ot Z79.899 OTHER CORRECTION (CURRENT) DRUG THERAPY 04/13/2018 HUY STONE MD [...] 04/14/2018 HUY STONE MD Ot Z79.899 OTHER CORRECTION (CURRENT) DRUG THERAPY 04/14/2018 HUY STONE MD [...] 05/31/2018 HUY STONE MD Ot Z79.899 OTHER PERL DEVELOPER (CURRENT) DRUG THERAPY 05/31/2018 HUY STONE MD [...] 06/01/2018 HUY STONE MD, Ot Z79.899 OTHER CORRECTION (CURRENT) DRUG THERAPY 06/01/2018 HUY STONE MD [...] 06/03/2018 HUY STONE MD Ot Z79.899 OTHER PERL DEVELOPER (CURRENT) DRUG THERAPY 06/03/2018 HUY STONE MD [...] 06/04/2018 HUY STONE MD, Ot Z79.899 OTHER CORRECTION (CURRENT) DRUG THERAPY 06/04/2018 HUY STONE MD, [...] 06/06/2018 HUY STONE MD Ot Z79.899 OTHER CORRECTION (CURRENT) DRUG THERAPY 06/06/2018 HUY STONE MD [...] 07/08/2018 HUY STONE MD Ot Z79.899 OTHER CORRECTION (CURRENT) DRUG THERAPY 07/08/2018 HUY STONE MD [...] 07/14/2018 HUY STONE MD Ot Z79.899 OTHER PERL DEVELOPER (CURRENT) DRUG THERAPY 07/14/2018 HUY STONE MD [...] 08/05/2018 HUY STONE MD Ot Z79.899 OTHER PERL DEVELOPER (CURRENT) DRUG THERAPY 08/05/2018 HUY STONE MD [...] 08/05/2018 HUY STONE MD Ot Z79.899 OTHER CORRECTION (CURRENT) DRUG THERAPY 08/05/2018 HUY STONE MD [...] 08/17/2018 HUY STONE MD Ot Z79.899 OTHER CORRECTION (CURRENT) DRUG THERAPY 08/17/2018 HUY STONE MD [...] 09/01/2018 HUY STONE MD Ot Z79.899 OTHER CORRECTION (CURRENT) DRUG THERAPY 09/01/2018 HUY STONE MD [...] 09/03/2018 ERIC BRADY MD Ot Z79.899 OTHER PERL DEVELOPER (CURRENT) DRUG THERAPY 09/03/2018 ERIC BRADY MD [...] 09/03/2018 ERIC BRADY MD Ot Z79.899 OTHER CORRECTION (CURRENT) DRUG THERAPY 09/03/2018 ERIC BRADY MD Ot Z90.11 ACQUIRED ABSENCE OF RIGHT BREAST AND NIP 09/03/2018 ERCI BRADY MD Ot Z90.79 ACQUIRED ABSENCE OF [...] 09/03/2018 HUY STONE MD Ot Z79.899 OTHER CORRECTION (CURRENT) DRUG THERAPY 09/03/2018 HUY STONE MD [...] 09/04/2018 HUY STONE MD Ot Z79.899 OTHER PERL DEVELOPER (CURRENT) DRUG THERAPY 09/04/2018 HUY STONE MD [...] 09/23/2018 HUY STONE MD Ot Z79.899 OTHER CORRECTION (CURRENT) DRUG THERAPY 09/23/2018 HUY STONE MD [...] 10/16/2018 HUY STONE MD Ot Z79.899 OTHER CORRECTION (CURRENT) DRUG THERAPY 10/16/2018 UHY STONE MD Ot Z90. 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 12/24/2018 HUY STONE MD Ot Z79.899 OTHER PERL DEVELOPER (CURRENT) DRUG THERAPY 12/24/2018 HUY STONE MD [...] 01/11/2019 HUY STONE MD Ot Z79.899 OTHER PERL DEVELOPER (CURRENT) DRUG THERAPY 01/11/2019 HUY STONE MD [...] 03/09/2019 HUY STONE MD Ot Z79.899 OTHER PERL DEVELOPER (CURRENT) DRUG THERAPY 03/09/2019 HUY STONE MD [...] 03/11/2019 HUY STONE MD Ot Z79.899 OTHER PERL DEVELOPER (CURRENT) DRUG THERAPY 03/11/2019 HUY STONE MD [...] 03/22/2019 HUY STONE MD Ot Z79.899 OTHER CORRECTION (CURRENT) DRUG THERAPY 03/22/2019 HUY STONE MD [...] 03/22/2019 HUY STONE MD Ot Z79.899 OTHER CORRECTION (CURRENT) DRUG THERAPY 03/22/2019 HUY STONE MD [...] 03/23/2019 HUY STONE MD Ot Z79.899 OTHER CORRECTION (CURRENT) DRUG THERAPY 03/23/2019 HUY STONE MD [...] 2019 HUY STONE MD Ot Z79.899 OTHER PERL DEVELOPER (CURRENT) DRUG THERAPY 2019 HUY STONE MD [...] 04/12/2019 HUY STONE MD Ot Z79.899 OTHER PERL DEVELOPER (CURRENT) DRUG THERAPY 04/12/2019 HUY STONE MD [...] 04/12/2019 HUY STONE MD Ot Z79.899 OTHER CORRECTION (CURRENT) DRUG THERAPY 04/12/2019 HUY STONE MD, [...] 04/13/2019 HUY STONE MD Ot Z79.899 OTHER PERL DEVELOPER (CURRENT) DRUG THERAPY 04/13/2019 HUY STONE MD, [...] 04/14/2019 HUY STONE MD Ot Z79.899 OTHER CORRECTION (CURRENT) DRUG THERAPY 04/14/2019 HUY STONE MD, [...] 04/14/2019 HUY STONE MD Ot Z79.899 OTHER PERL DEVELOPER (CURRENT) DRUG THERAPY 04/14/2019 HUY STONE MD, [...] 04/14/2019 HUY STONE MD, Ot Z79.899 OTHER CORRECTION (CURRENT) DRUG THERAPY 04/14/2019 HUY STONE MD, [...] 04/17/2019 HUY STONE MD, Ot Z79.899 OTHER PERL DEVELOPER (CURRENT) DRUG THERAPY 04/17/2019 HUY STONE MD, [...] 04/17/2019 HUY STONE MD, Ot Z79.899 OTHER PERL DEVELOPER (CURRENT) DRUG THERAPY 04/17/2019 HUY STONE MD, [...] 04/17/2019 HUY STONE MD, Ot Z79.899 OTHER CORRECTION (CURRENT) DRUG THERAPY 04/17/2019 HUY STONE MD, [...] 04/17/2019 HUY STONE MD, Ot Z79.899 OTHER PERL DEVELOPER (CURRENT) DRUG THERAPY 04/17/2019 HUY STONE MD, [...] 04/17/2019 HUY STONE MD, Ot Z79.899 OTHER PERL DEVELOPER (CURRENT) DRUG THERAPY 04/17/2019 HUY STONE MD, [...] 04/19/2019 HUY STONE MD, Ot Z79.899 OTHER PERL DEVELOPER (CURRENT) DRUG THERAPY 04/19/2019 HUY STONE MD, [...] MALIGNANT NEOPLASM OF CENTRAL PORTION OF 04/21/2019 UHY STONE MD, Ot 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 04/21/2019 HUY STONE MD Ot Z79.899 OTHER PERL DEVELOPER (CURRENT) DRUG THERAPY 04/21/2019 HUY STONE MD, [...] PAREDES Ot J45.909 UNSPECIFIED ASTHMA, UNCOMPLICATED 04/21/2019 WILFREOD PAREDES Ot K21.9 GASTRO-ESOPHAGEAL REFLUX DISEASE WITHOUT [...] 04/21/2019 HUY STONE MD, Ot Z79.899 OTHER CORRECTION (CURRENT) DRUG THERAPY 04/21/2019 HUY STONE MD, [...] 04/21/2019 HUY STONE MD Ot Z79.899 OTHER PERL DEVELOPER (CURRENT) DRUG THERAPY 04/21/2019 HUY STONE MD, [...] 04/21/2019 HUY STONE MD Ot Z79.899 OTHER CORRECTION (CURRENT) DRUG THERAPY 04/21/2019 HUY STONE MD, [...] 04/21/2019 HUY STONE MD, Ot Z79.899 OTHER CORRECTION (CURRENT) DRUG THERAPY 04/21/2019 HUY STONE MD, [...] 04/22/2019 HUY STONE MD, Ot Z79.899 OTHER CORRECTION (CURRENT) DRUG THERAPY 04/22/2019 HUY STONE MD, [...] 04/29/2019 HUY STONE MD, Ot Z79.899 OTHER CORRECTION (CURRENT) DRUG THERAPY 04/29/2019 HUY STONE MD, [...] 04/29/2019 HUY STONE MD, Ot Z79.899 OTHER CORRECTION (CURRENT) DRUG THERAPY 04/29/2019 HUY STONE MD, Ot Z90. 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 51 SECONDARY MALIGNANT [...] 04/30/2019 HUY STONE MD, Ot Z79.899 OTHER PERL DEVELOPER (CURRENT) DRUG THERAPY 04/30/2019 HUY STONE MD, [...] MALIGNANT NEOPLASM OF BONE 05/04/2019 BERTHA FRAUSTO, UHY Ot D64. 9 ANEMIA, UNSPECIFIED 05/04/2019 BERTHA [...] 05/04/2019 HUY STONE MD, Ot Z79.899 OTHER CORRECTION (CURRENT) DRUG THERAPY 05/04/2019 HUY STONE MD, [...] 05/04/2019 HUY STONE MD, Ot Z79.899 OTHER CORRECTION (CURRENT) DRUG THERAPY 05/04/2019 HUY STONE MD, Ot Z85. 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 6 SECONDARY MALIGNANT [...] IMM 05/06/2019 HUY STONE MD, Ot Z79.891 CORRECTION (CURRENT) USE OF OPIATE ANALGE 05/06/2019 HUY STONE MD, Ot Z79.899 OTHER CORRECTION (CURRENT) DRUG THERAPY 05/06/2019 HUY STONE MD, [...] 05/10/2019 HUY STONE MD, Ot Z79.899 OTHER CORRECTION (CURRENT) DRUG THERAPY 05/10/2019 HUY STONE MD, [...] 05/10/2019 HUY STONE MD Ot Z79.899 OTHER CORRECTION (CURRENT) DRUG THERAPY 05/10/2019 HUY STONE MD, [...] 05/11/2019 HUY STONE MD Ot Z79.899 OTHER CORRECTION (CURRENT) DRUG THERAPY 05/11/2019 HUY STONE MD, [...] 05/11/2019 HUY STONE MD, Ot Z79.899 OTHER CORRECTION (CURRENT) DRUG THERAPY 05/11/2019 HUY STONE MD, [...] Ot R18.8 OTHER ASCITES 05/11/2019 PERDOMO DO, INCKIE D Ot R18. 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 79 ACQUIRED ABSENCE OF OTHER GENITAL ORGAN( Procedures Code Description Performed By Per formed On 2I2G4YY DR GRANADOS OF PERITONEAL CAVITY, PERCUTANE 04/19/2019 [id number] IN SERTION OF INFUSION DEV INTO SUP VENA 04/20/2019 [id number] IN SERT OF TUNNEL VAD INTO CHEST [...] finding identification by light micr oscopy YES NRG Comprehensive metabolic panel - 04/28/19 16:09 Serum [...] OF GROWTH Isolated NRG Bacterial blood culture [id number] NRG Bacterial blood culture - 04/28/19 20:58 [...] culture - 04/29/19 02:20 Bacterial urine culture [id number] NRG COLONY COUNT 50,000 CFU/ML NRG FTX;REPORTABLE PREDOMINANT NRG FREE TEXT ENTRY 2 SUSCEPTIBILITY REPORTED 05-02-191200 NRG Dirithromycin susceptibility test by dis k [...] pa ashwin - 04/29/19 08:57 WRISTBAND NUMBER [id number] NRG ABO+Rh group OP NRG Blood group [...] OF GROWTH Isolated NRG Bacterial blood culture [id number] NRG FREE TEXT ENTRY 2 PRELIM RAPID ID BY VCP 05-24-19, 0 [phone] NRG FREE TEXT ENTRY 3 ID CONFIRMED BY RML 05-23 15:05 NRG [facility] - [...] culture - 05/22/19 17:31 Bacterial urine culture [id number] NRG COLONY COUNT >100,000/ML NRG FTX;REPORTABLE REPORTED [...] test by minimum inhibitory concentration 4 NRG Complete blood count (CBC) with automate d white blood cell (WBC) differential - 06/11/19 17:15 Blood leukocytes automated count (number/volume) 2.1 10*3/uL 4.3-11.0 Blood erythrocytes automated count (number/volume) 3.58 10*6/uL 4.35-5.85 Venous blood hemoglobin measurement (mass/volume) 9.4 g/dL 11.5-16.0 Blood hematocrit (volume fraction) 30 % 35-52 Automated erythrocyte mean corpuscular volume 83 [ foz_us] 80-99 Automated erythrocyte mean corpuscular h emoglobin (mass per erythrocyte) 26 pg 25-34 Automated erythrocyte mean corpuscular h emoglobin concentration measurement (mass/volume) 32 g/dL 32-36 Automated erythrocyte distribution width ratio 22. 4 % 10.0- 14.5 Automated blood platelet count (count/volume) 437 10*3/uL 130-400 Automated blood platelet mean volume measurement 9.3 [foz_us] 7.4-10.4 Automated blood neutrophils/100 leukocytes 41 % 42-75 Automated blood lymphocytes/100 leukocytes 31 % 12-44 Blood monocytes/100 leukocytes 27 % 0-12 Automated blood eosinophils/100 leukocytes 1 % 0-10 Automated blood basophils/100 leukocytes 1 % 0-10 Blood neutrophils automated count (number/volume) 0.8 10*3 1.8-7.8 Blood lymphocytes automated count (number/volume) 0.7 10*3 1.0-4.0 Blood monocytes automated count (number/volume) 0. 6 10*3 0.0-1.0 Automated eosinophil count 0.0 10*3/uL 0 .0-0.3 Automated blood basophil count (count/volume) 0.0 10*3/uL 0.0-0.1 Comprehensive metabolic panel - 06/11/19 17:15 Serum or plasma sodium measurement (moles/volume) 128 mmol/L 135-145 Serum or plasma potassium measurement (moles/volume) 3.1 mmol/L 3.6-5.0 Serum or plasma chloride measurement (moles/volume) 95 mmol/L 98-107 Carbon dioxide 20 mmol/L 21-32 [...] NRG Serum or plasma glucose measurement (mass/volume) 114 mg/dL 70-105 Serum or plasma calcium measurement (mass/volume) 8.6 mg/dL 8.5-10.1 Serum or plasma total bilirubin measurement (mass/volu me) 0.4 mg/dL 0.1-1.0 Serum or plasma alkaline phosphatase miguel angel surement (enzymatic activity/volume) 95 U/L 40-136 Serum or plasma aspartate aminotransfera se measurement (enzymatic activity/volume) 22 U/L 5-34 Serum or plasma alanine aminotransferase measurement (enzymatic activity/volume) 10 U/L 0-55 Serum or plasma protein measurement (mass/volume) 5.3 g/dL 6.4-8.2 Serum or plasma albumin measurement (mass/volume) 2.7 g/dL 3.2-4.5 CALCIUM CORRECTED 9.6 mg/dL 8.5-10.1 Lipase - 06/11/19 17:15 Lipase 18 U/L 8-78 Manual absolute plasma cell count - 05/16 10/03 17:15 Blood monocytes/100 leukocytes 22 % NRG Manual blood segmented neutrophils/100 leukocytes 39 % NRG Blood band neutrophils/100 leukocytes 4 % NRG Manual blood lymphocytes/100 leukocytes 32 % NRG Manual eosinophils/100 leukocytes in nose 2 % NRG Blood polychromasia detection by light microscopy MODERATE NRG Blood anisocytosis detection by light microscopy M ARKED NRG Manual blood nucleated erythrocytes/100 leukocytes ratio 1 NRG Blood hypochromia detection by light microscopy MO DERATE NRG Manual blood myelocytes/100 leukocytes 1 % NRG Complete urinalysis with reflex to cultu re - 06/11/19 18:42 Urine color determination YELLOW NRG Urine clarity determination CLEAR NR G Urine pH measurement by test strip 6.0 5-9 Specific gravity of urine by test strip 1.010 1.016-1.022 Urine protein assay by test strip, semi-quantitative 1+ NEGATIVE Urine glucose detection by automated test strip NE GATIVE NEGATIVE Erythrocytes detection in urine sediment by light micr oscopy 1+ NEGATIVE Urine ketones detection by automated test strip TR MENA NEGATIVE Urine nitrite detection by test strip [...] in urine sediment by light microsco py TRACE NRG Squamous epithelial cells detection in u rine sediment by light microscopy 5-10 NRG Crystals detection in urine sediment by light microsco py NONE NRG Casts detection in urine sediment by light microscopy NONE NRG Mucus detection in urine sediment by light microscopy NEGATIVE NRG Complete urinalysis with reflex to culture NO NRG Encounters ACCT No. Visit Date/Time Discharge Status Pt. Type Provider Facility Loc./Unit Complaint [id number] 05/25/2019 10:37:09 Document Registration [id number] 04/15/2019 13:01:31 Document Registration [id number] 04/15/2019 13:01:30 Document Registration [id number] 04/15/2019 13:01:29 Document Registration [id number] 05/25/2019 10:45:15 05/25/2019 23:59: 59 CLS Outpatient Home Frank [id number] 04/15/2019 15:27:43 04/15/2019 23:59: 59 CLS Outpatient EITAN KRUGER [id number] 04/15/2019 11:36:00 04/15/2019 23:59: 59 CLS Outpatient Home [facility] [id number] 05/24/2019 12:58:00 17:10:00 DIS Outpatient HUY STONE MD [facility] RAD ASCITES,CA OF RT BREAST ,SECONDARY CA OF BONE [id number] 05/22/2019 15:00:00 18:18:00 DIS Emergency CADEN HARDIN MD [facility] ER FEVER 102 / [place] PT [id number] 05/12/2019 13:00:00 23:59:59 CLS Outpatient NICKIE PERDOMO DO [facility] RAD CANCER OF RT BREAST,SEC ONDARY CANCER OF BONE [id number] 05/12/2019 12:10:00 23:59:59 CLS Outpatient HUY STONE MD [facility] RAD CA OF RT BREAST,SECONDA RY CA OF BONE [id number] 05/11/2019 07:45:00 23:59:59 CLS Outpatient HUY STONE MD [facility] RAD CANCER OF RT BREAST,DIZ ZINESS [id number] 05/05/2019 17:14:00 12:30:00 DIS Outpatient HUY STONE MD [facility] 4TH N/V [id number] 04/28/2019 21:59:00 17:52:00 DIS Inpatient HUY STONE MD [facility] 4TH NAUSEA,VOMITING,BREAST CA [id number] 04/21/2019 10:57:00 22:00:00 DIS Outpatient HUY STONE MD [facility] 4TH SWB, NAUSEA, VOMITING, BREAST CANCER [id number] 04/18/2019 12:04:00 10:50:00 DIS Inpatient LENAWILFREDO [facility] 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, METAST ATIC BREAST CA [id number] 04/14/2019 12:38:00 23:59:59 CLS Outpatient NICKIE PERDOMO DO [facility] RAD ABD OSCITES [id number] 04/14/2019 07:01:00 23:59:59 CLS Outpatient TICO GALAN MD [facility] RAD RUQ PAIN [id number] 04/13/2019 19:02:00 22:48:00 DIS Emergency TICO GALAN MD [facility] ER ABD PAIN [id number] 04/02/2019 12:34:00 23:59:59 CLS Outpatient HUY STONE MD [facility] RAD CANCER OF RIGHT BREAST, SECONDARY CANCER OF BONE [id number] 2019 10:26:00 23:59:59 CLS Outpatient HUY STONE MD [facility] RAD CANCER OF RT BREAST [id number] 03/23/2019 14:52:00 23:59:59 CLS Outpatient HUY STONE MD [facility] RAD CANCER OF RT BREAST,DIZ ZINESS [id number] 03/01/2019 14:00:00 00:01:00 DIS Outpatient HUY STONE MD [facility] ONC [id number] 12/02/2018 15:28:00 019 00:01:00 DIS Outpatient HUY STONE MD [facility] ONC [id number] 09/02/2018 13:53:00 019 08:35:00 DIS Outpatient ERIC BRADY MD [facility] ONC [id number] 09/01/2018 08:17:00 019 00:01:00 DIS Outpatient HUY STONE MD [facility] ONC [id number] 05/13/2018 13:39:00 019 00:01:00 DIS Outpatient HUY STONE MD [facility] ONC [id number] 03/02/2018 10:55:00 018 10:56:00 DIS Outpatient HUY STONE MD [facility] ONC [id number] 06/11/2019 20:00:[address] Inpatient ZAIN LANDRUM MD [facility] 4TH SBO,METASTATIC CA [id number] 06/10/2019 10:15:[address] Outpatient HUY STONE MD [facility] ONC
--- NOTE | 2019-06-11 20:27 | NUR ---
ED PHONE REPORT RECEIVED FROM TINO ANGUIANO.
--- NOTE | 2019-06-11 21:18 | NUR ---
SUZIE MILLER admitted to room 407-1, with an admitting diagnosis of SBO, METASTATIC CA, on 06/11/19 from [facility], accompanied by STAFF.SUZIE MILLER introduced to surroundings, call light, bed controls, phone, TV, temperature control, lights, meal times, smoking policy, visitor policy, side rail policy, bathrooms and showers. Patient Rights given to patient in the handbook. SUZIE MILLER verbalizes understanding that [facility] is not responsible for the loss or damage to any personal effects or valuables that are kept in the patients posession during their hospitalization. SUZIE MILLER verbalizes understanding of Interdisciplinary Patient Education. Patient and/or family were informed about the Rapid Response Team and its purpose.
[2019-06-11 21:24] VITALS: BP 112/79
[2019-06-11] MEDS: D5 NS W/KCL 20 MEQ/L 1,000 ML IV SCH (21:30)
[2019-06-11] MEDS ORDERED: D5 1/2 NS W/KCL 20 MEQ/L 1,000 ML IV ONE (21:32)
[2019-06-11] MEDS ORDERED: diphenhydrAMINE 50 MG/ML INJ (BENADRYL) IV PRN (22:15)
[2019-06-12] VITALS: BP 107/79
[2019-06-12 03:35] VITALS: BP 115/82
[2019-06-12] MEDS: morphine INJ 4 MG/ML 1 ML (VIAL/SYRINGE) IV PRN ×3 (04:04→16:23)
[2019-06-12 04:34] LABS: BASOPHILS % (AUTO) 0 % (0-10); EOSINOPHILS % (AUTO) 2 % (0-10); HEMATOCRIT 27 % (35-52); HEMOGLOBIN 8.5 G/DL (11.5-16.0); LYMPHOCYTES # (AUTO) 0.7 X 10^3 (1.0-4.0); LYMPHOCYTES % (AUTO) 38 % (12-44); MEAN CORPUSCULAR HEMOGLOBIN 26 PG (25-34); MEAN CORPUSCULAR HGB CONC 32 G/DL (32-36); MEAN CORPUSCULAR VOLUME 84 FL (80-99); MEAN PLATELET VOLUME 9.8 FL (7.4-10.4); MONOCYTES # (AUTO) 0.7 X 10^3 (0.0-1.0); MONOCYTES % (AUTO) 37 % (0-12); NEUTROPHILS # (AUTO) 0.4 X 10^3 (1.8-7.8); NEUTROPHILS % (AUTO) 23 % (42-75); PLATELET COUNT 421 10^3/uL (130-400); RED CELL DISTRIBUTION WIDTH 22.3 % (10.0-14.5); WHITE BLOOD COUNT 1.8 10^3/uL (4.3-11.0)
[2019-06-12] MEDS: D5 NS W/KCL 20 MEQ/L 1,000 ML IV SCH ×2 (04:37→13:14)
[2019-06-12 04:51] LABS: ALANINE AMINOTRANSFERASE 12 U/L (0-55); ALBUMIN 2.4 GM/DL (3.2-4.5); ALKALINE PHOSPHATASE 84 U/L (40-136); BILIRUBIN,TOTAL 0.3 MG/DL (0.1-1.0); BUN/CREATININE RATIO 13; CARBON DIOXIDE 20 MMOL/L (21-32); CHLORIDE 96 MMOL/L (98-107); CREATININE SERUM 0.76 MG/DL (0.60-1.30); GFR ESTIMATED > 60; GLUCOSE 147 MG/DL (70-105); MAGNESIUM 1.3 MG/DL (1.6-2.4); POTASSIUM 3.4 MMOL/L (3.6-5.0); SODIUM 128 MMOL/L (135-145); TOTAL PROTEIN 4.9 GM/DL (6.4-8.2)
[2019-06-12 08:00] VITALS: BP 123/86
[2019-06-12] MEDS: FAMOTIDINE 20MG/2ML IV (PEPCID) IV SCH ×2 (09:25→21:16)
--- NOTE | 2019-06-12 10:52 | History & Physical-Hospitalist ---
History of Present Illness HPI/Chief Complaint Pt is a 59yoCF with a PMH of metastatic breast cancer who presented to the ER duet severe abdominal pain. She states that this started on 06/02 following her last chemo but essentially resolved on it's own. Then yesterday at noon her pain came back and was very severe. She described it as stabbing in nature across the upper mid abdomen. This was accompanied with nausea as well. Her last BM was yesterday. She presented to the ER due to the unrelenting nature of her symptoms. In the ER CT was done and revealed a high grade bowel obstruction. Dr Barry was consulted and given her comorbid disease he wanted to make every attempt at conservative management. This morning she states her pain is still severe but the morphine relieves it. Her nausea is controlled with phenergan. She is concerned about the potential for surgery. She is also hopeful to be able to start on carboplatin again because on her last lab draw her "cancer markers" went up. Source: patient Date Seen 06/12/19 Time Seen by a Provider: 10:47 Attending Physician Zain Arteaga MD PCP Rodrigue Orellana DO Referring Physician Date of Admission Jun 11, 2019 at 20:00 Home Medications & Allergies Home Medications Reviewed patient Home Medication Reconciliation performed by pharmacy medication reconciliations respiratory support technician and/or nursing. Patients Allergies have been reviewed. Allergies Allergies Coded Allergies morphine (Verified Allergy, Intermediate, Itching, 04/18/19) aspirin (Verified Allergy, Unknown, 01/13/18) prochlorperazine (Verified Allergy, Unknown, 06/11/19) Tolerates Phenergan well Past Qdiximf-Qbhwdb-Mfhcor Hx Past Med/Social Hx: Reviewed Nursing Past Med/Soc Hx Patient Social History Marrital Status: Alcohol Use: Denies Use Recreational Drug Use: No Smoking Status: Never a Smoker 2nd Hand Smoke Exposure: No Recent Foreign Travel: No Contact w/other who traveled: No Recent Hopitalizations: No Recent Infectious Disease Expo: No Immunizations Up To Date Tetanus Booster (TDap): Unknown Pediatric: Yes Seasonal Allergies Seasonal Allergies: No Past Medical History Surgeries: Breast, Section, 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 Cardiac: Hypertension 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: Neuropathy : No 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 Gastrointestinal: Gastroesophageal Reflux, Gall Bladder Disease Endocrine: Hypothyroidsim Cancer: Bone, Breast Did You Recieve Any Treatments: Yes What Type of Treatment Did You: Chemotherapy Psychosocial: ADD/ADHD, Sleep Difficulties, Depression History of Blood Disorders: No Family History Reviewed Nursing Family Hx No Pertinent Family Hx Review of Systems Constitutional: No chills, No fever EENTM: nose congestion Respiratory: no symptoms reported Cardiovascular: no symptoms reported Gastrointestinal: abdominal pain; No constipation; nausea Genitourinary: no symptoms reported Musculoskeletal: no symptoms reported Skin: no symptoms reported Psychiatric/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: No Symptoms Reported Physical Exam Physical Exam Vital Signs Vital Signs - First Documented 06/11/19 17:03 Temp 36.3 Pulse 115 Resp 20 B/P (MAP) 132/98 (109) Pulse Ox 96 O2 Delivery Room Air Capillary Refill : Less Than 3 Seconds Height, Weight, BMI Height: '" Weight: lbs. oz. kg; 25.81 BMI Method: General Appearance: Chronically ill, Mild Distress, Thin HEENT: Moist Mucous Membranes; No Scleral Icterus (L), No Scleral Icterus (R) Neck: Normal Inspection, Supple Respiratory: Lungs Clear, No Accessory Muscle Use, No Respiratory Distress Cardiovascular: Regular Rate, Rhythm, No Murmur Gastrointestinal: Abnormal Bowel Sounds (quiet), Distended, Guarding Extremity: No Calf Tenderness, Pedal Edema Neurologic/Psychiatric: Alert, Oriented x3 Skin: Normal Color, Warm/Dry Lymphatic: No Adenopathy Results Results/Procedures Labs Laboratory Tests 06/11/19 17:15 06/12/19 04:05 Patient resulted labs reviewed. Imaging: Reviewed Imaging Report Imaging NAME: SUZIE MILLER [facility] REC#: [id number] PT STATUS: REG ER : 1960 PHYSICIAN: CADEN HARDIN MD ADMIT DATE: 06/11/19/ER Signed Date of Exam:06/11/19 CT ABDOMEN/PELVIS W CLINICAL INDICATION: Patient had chemotherapy, last dose today, for breast cancer metastatic to bone. Carcinomatosis of the abdomen, abdominal swelling, pain, nausea. Past surgical history of right breast, and hysterectomy. EXAM: Axial CT scan of the abdomen performed with 92 cc of Omnipaque 350 IV contrast. Sagittal and coronal reformatted images were created. Auto Exposure Controls were utilized during the CT exam to meet ALARA standards for radiation dose reduction. COMPARISON: CT scan of the chest, abdomen and pelvis performed with contrast dated 05/12/2019. FINDINGS: There is progression of parenchymal bands involving both lung bases possibly representing atelectasis. There is development of small bilateral pleural effusions. There is interval development of large amounts of ascites. Again seen peritoneal wall enhancement and thickening with no enhancing nodule or peritoneal mass seen. Again seen are mesenteric thickening and stranding. There is no significant change to the multiple circumscribed low-density lesions throughout the liver which may represent cysts. The spleen, pancreas, adrenal glands and gallbladder are unremarkable. There is fluid distended stomach and small bowel seen. There is a moderate amount of stool throughout the colon which is nondilated. There is decompression of distal small bowel seen overlying the right lower quadrant region. There is transition of dilated loops of small bowel seen in the right posterior mid abdominal region on series 4, image 57 representing transition point. There is no definitive visualized mass seen near the transition point, but it is tortuous in the region. There is fecalization of intestinal contents seen just proximal to the transition point. This finding is new compared to the prior CT scan. Small hiatal hernia is noted. Interval placement of left double-J ureteral stent. There is mild to moderate left hydronephrosis which appears similar to the prior CT scan. There is fluid contrast level seen in left kidney suggesting impaired function. There is no definite significant lymphadenopathy seen. There is fluid within the dilated distal esophagus. Anasarca is noted which has progressed in the interim. There is diffuse heterogeneous sclerosis seen throughout the visualized axial skeleton. These findings may be related to patient's history of osseous metastatic disease. IMPRESSION: 1: There is interval development of large amounts of ascites. There is fat stranding and thickening of the omentum noted. There is peritoneal wall enhancement again seen and slight thickening with no nodular peritoneal mass seen. Malignant ascites is of concern. 2: There is interval development of high-grade small bowel obstruction with transition point seen in the mid to distal ileum. There is no definite mass seen in the region of transition point, but there is tortuosity in the region. 3: There is moderate amount of stool seen throughout the colon. 4: Interval development of small bilateral pleural effusions and bibasilar atelectasis. 5: Diffuse heterogeneous and sclerotic axial skeleton which may related to diffuse osseous metastatic disease. Results of this report were discussed with Dr. Morgan Lora via the telephone on 06/11/2019 at 1900 hours. Assessment/Plan Admission Diagnosis High Grade Small Bowel Obstruction Admission Status: Inpatient Order (span 2 midnights) Reason for Inpatient Admission: may require surgical intervention, will take more than two midnights to stabilize for DC Assessment and Plan High Grade Small Bowel Obstruction Ascites Surgery consulted, appreciate recs Continue NGT NPO Swabs to mouth for comfort Continue IVF May need paracentesis Metastatic Breast Cancer Neutropenia Consult Dr Gregory Patient reports plan to change chemotherapy now that cancer markers trending up I called and discussed case with Dr Gregory ANC 400 but afebrile Hyponatremia Hypokalemia Replace in fluids Due to hypovolemia Hypothyroidism Hold home meds for now, if will ne NPO detention will replace with IV Synthroid Diagnosis/Problems Diagnosis/Problems (1) Metastatic cancer (2) SBO (small bowel obstruction) (3) Hyponatremia Status: Acute (4) Hypokalemia Status: Acute (5) Ascites Status: Acute Qualifiers: Ascites type: malignant Qualified Codes: R18.0 - Malignant ascites (6) Intractable nausea and vomiting Status: Chronic (7) Peritoneal carcinomatosis Status: Chronic Clinical Quality Measures DVT/VTE Risk/Contraindication: Risk Factor Score Per Nursin RFS Level Per Nursing on Admit: 4+=Very High ZAIN ARTEAGA MD Jun 12, 2019 10:52
--- NOTE | 2019-06-12 11:19 | NUR ---
Pt is Independent Confucianist. Administrative Assistant assisted pt in dealing with her fear of leaving family. Also provided opportunity to share ian history. Pt requested a Bible. Will suggest on-line version rather than hard copy.
--- NOTE | 2019-06-12 11:38 | Oncology Consultation ---
Visit Information Visit Information Date of Admission Jun 11, 2019 at 20:00 Attending Physician Julisa Arteaga MD Admitting Physician Rodrigue Orellana DO Chief Complaint breast cancer, mets with peritoneal carcinomatosis, small bowel obstruction Interval History Ms. Decker is a 59 year old white female known to me for the metastatic HR+ breast cancer to the bones and peritoneal carcinomatosis on Taxotere chemotherapy, last dose 06/03/2019. Her tumor was coming down when she started the Taxotere initially and clinical improving but then went up this week. She had more GI symptoms last week with abdominal pain and suddenly got worse yesterday. Her brought her to ER last night. She was found to have large ascites, small bowel obstruction and neutropenia. No fever. NG tube was placed. She has been on NPO bowel rest. Dr Barry is going to do a paracentasis to relieve the symptoms. I consulted the patient on: 06/12/19 11:37 Time Seen by Provider: 12:05 Review of Systems Constitutional: weakness, weight loss EENTM: no symptoms reported Respiratory: short of breath, other (SOB due to large ascites) Cardiovascular: no symptoms reported Gastrointestinal: abdominal pain, nausea, vomiting Musculoskeletal: no symptoms reported Psychiatric/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: No Symptoms Reported Health Status Allergies Coded Allergies: morphine (Verified Allergy, Intermediate, Itching, 04/18/19) aspirin (Verified Allergy, Unknown, 01/13/18) prochlorperazine (Verified Allergy, Unknown, 06/11/19) Tolerates Phenergan well Home Medications Acetaminophen (Tylenol Extra Strength) 500 Mg Tablet, 500 MG PO Q6H PRN for PAIN-MILD (1-4), (Reported) Dextroamphetamine/Amphetamine (Dextroamp-Amphet ER 30 mg Cap) 30 Mg Cap.er.24h, 30 MG PO DAILY, (Reported) Diphenhydramine HCl (Benadryl) 25 Mg Capsule, 50 MG PO Q4H PRN for ALLERGY SYMPTOMS, (Reported) Fluoxetine HCl (Fluoxetine HCl) 40 Mg Capsule, 40 MG PO DAILY for 30 Days, #30 Prescribed by: ASYA STEPHENS on 05/05/19 5656 Gabapentin (Gabapentin) 300 Mg Capsule, 300 MG PO HS, (Reported) Ibuprofen (Ibuprofen) 200 Mg Tablet, 400 MG PO Q6H PRN for PAIN-MILD (1-4), (Reported) Levofloxacin (Levofloxacin) 750 Mg Tablet, 750 MG PO DAILY for 4 Days, #4 Ref 0 Prescribed by: CADEN HARDIN on 05/22/19 1809 Levothyroxine Sodium (Levothyroxine Sodium) 25 Mcg Tablet, 25 MCG PO DAILY, (Reported) Omeprazole (Omeprazole) 40 Mg Capsule.dr, 40 MG PO HS, (Reported) Oxycodone HCl/Acetaminophen (Oxycodone-Acetaminophen 5-325) 1 Each Tablet, 1 TAB PO HS PRN for PAIN-MODERATE (5-7), (Reported) Promethazine HCl (Promethazine Tablet) 25 Mg Tablet, 25 MG PO Q6H PRN for NAUSEA/VOMITING for 30 Days, #30 Prescribed by: ASYA STEPHENS on 05/05/19 1806 Sucralfate (Sucralfate) 1 Gm Tablet, 1 GM PO ACHS for 14 Days, #30 Prescribed by: MITCH CROCKETT on 05/06/19 1059 Zolpidem Tartrate (Zolpidem Tartrate ER) 12.5 Mg Tab.mphase, 12.5 MG PO HS, (Reported) NOX-Peqedr-Ipsvco Hx Patient Social History Marrital Status: Alcohol Use: Denies Use Recreational Drug Use: No Smoking Status: Never a Smoker 2nd Hand Smoke Exposure: No Recent Foreign Travel: No Contact w/other who traveled: No Recent Infectious Disease Expo: No Recent Hopitalizations: No Immunizations Up To Date Tetanus Booster (TDap): Unknown Family Medical History Significant Family History: No Pertinent Family Hx Physical Exam Vital Signs Vital Signs - First Documented 06/11/19 17:03 Temp 36.3 Pulse 115 Resp 20 B/P (MAP) 132/98 (109) Pulse Ox 96 O2 Delivery Room Air Capillary Refill : Less Than 3 Seconds Height, Weight, BMI Height: '" Weight: lbs. oz. kg; 25.81 BMI Method: General Appearance: Chronically ill, Moderate Distress HEENT: PERRL/EOMI Neck: Non Tender, Supple Respiratory: No Accessory Muscle Use, No Respiratory Distress Gastrointestinal: Soft, Distended, Other (large ascites) Extremity: Pedal Edema Neurologic/Psychiatric: Alert, Oriented x3 Data Review Labs Laboratory Tests 06/11/19 17:15 3/28/20 04:05 Laboratory Tests 06/11/19 17:15: White Blood Count 2.1L, Red Blood Count 3.58L, Hemoglobin 9.4L, Hematocrit 30L, Red Cell Distribution Width 22.4H, Platelet Count 437H, Neutrophils (%) (Auto) 41L, Monocytes (%) (Auto) 27H, Neutrophils # (Auto) 0.8L, Lymphocytes # (Auto) 0.7L, Sodium Level 128L, Potassium Level 3.1L, Chloride Level 95L, Carbon Dioxide Level 20L, Glucose Level 114H, Total Protein 5.3L, Albumin 2.7L 06/11/19 18:42: Urine Specific [place] 1.010L, Urine Protein 1+H, Urine Ketones TRACEH, Urine Bilirubin 1+H, Urine RBC (Auto) 1+H, Urine RBC 5-10H 06/12/19 04:05: White Blood Count 1.8L, Red Blood Count 3.23L, Hemoglobin 8.5L, Hematocrit 27L, Red Cell Distribution Width 22.3H, Platelet Count 421H, Neutrophils (%) (Auto) 23L, Monocytes (%) (Auto) 37H, Neutrophils # (Auto) 0.4L, Lymphocytes # (Auto) 0.7L, Sodium Level 128L, Potassium Level 3.4L, Chloride Level 96L, Carbon Dioxide Level 20L, Glucose Level 147H, Total Protein 4.9L, Albumin 2.4L, Calcium Level 8.0L, Magnesium Level 1.3L Impression & Plan Impression & Plan IMP: 1. Metastatic breast cancer mets to the bones and peritoneal carcinomatosis, large malignant ascites, last chemo 06/03/2019. 2. Small bowel obstruction most likely due to peritoneal carcinomatosis 3. Anasarca. due to low protein and low albumin 4. Neutropenia due to recent chemo. 5. Malnutrition and low albumin due to peritoneal carcinomatosis, and frequent paracentasis losing protein and albumin. Plan: 1. NPO, NG tube. Pt will be very poor candidate for surgery. 2. Paracentasis to relieve the symptoms. 3. IV albumin today. 4. TPN clinimax nutrition support 5. I discussed with patient about the code issue. She is full code at this poin t. She had made her mind last night at ER and will not change at this point. She is not ready to discuss the hospice neither. 6. I will not use Neupogen growth factor at this point due to the bone mets. 7. Symptoms control with pain meds, antiemetics (phenagren works better than Zofran for her in the past). 8. Once she recovers from this episode, we will need to change chemo regimens. HUY STONE MD Jun 12, 2019 11:38
[2019-06-12 11:50] VITALS: BP 115/83
[2019-06-12] MEDS ORDERED: ALBUMIN 25% 25 GM/100 ML 100 ML IV ONE (12:15)
--- NOTE | 2019-06-12 12:21 | CONSULTATION REPORT ---
DATE OF SERVICE: ATTENDING PHYSICIAN: Rodrigue Orellana DO. HISTORY OF PRESENT ILLNESS: The patient is a 59-year-old female who was seen in consultation with Dr. Barry. The patient reports that she was diagnosed with right breast lobular carcinoma 15 years ago and did undergo a right modified radical mastectomy at that time. After that, she did undergo 6 rounds of chemo as well as seven rounds of radiation. She reports that she has done well for several years until approximately 5 years ago, which she reports that this had come back with metastasis into the spine as well as a bone. She reports that she has been receiving a different oral as well as IV chemotherapy treatments over this time. She reports that she did notice in 10/2018 through 01/2019 that she was having increased weight loss and reports that underwent testing by Oncology where confirmed that she was continuing to have spread of the cancer. She reports that her chemotherapy has been adjusted since then. She reports that approximately a week ago, she did undergo a round of IV chemotherapy. She reports that approximately a couple days later, she did develop an upper abdominal pain and reports that this had persisted, however, she was able to get this under control with pain medication as well as Valium. She reports that she had done well for several days until approximately a day ago when she reports that this returned and reports that she was unable to get this under control. She reports this was a constant sharp upper abdominal pain with associated nausea. She denies any vomiting. She also denied any fever or chills. She reports that she did have several bowel movements yesterday and has continued to pass flatus since then. She reports that she has also developed ascites and reports that she has had 3 previous paracenteses with peritoneal carcinomatosis. She reports that at this time, her last paracentesis was 3 weeks ago and reports that she was trying to hold off as long as possible but reports that her abdomen is a rather swollen. She does report episodes of shortness of breath. She does report that when she lies flat that the pain does seem to be tolerable with minimal shortness of breath. PAST MEDICAL HISTORY: Hypothyroidism, hypertension, gastroesophageal reflux disease, right breast cancer with metastasis, insomnia, neuropathy, anxiety, depression. PAST SURGICAL HISTORY: Right modified radical mastectomy left ureter stent placement, right breast reconstruction, , complete hysterectomy, [place] port placed. ALLERGIES: ASPIRIN, COMPAZINE. MEDICATIONS: 1. Acetaminophen 500 mg q.6 hours p.r.n. 2. Adderall 30 mg daily. 3. Diphenhydramine 50 mg every 4 hours p.r.n. 4. Fluoxetine 40 mg daily. 5. Gabapentin 300 mg at bedtime. 6. Ibuprofen 400 mg q.6 hours p.r.n. 7. Levothyroxine 75 mcg daily. 8. Omeprazole 40 mg at bedtime. 9. Percocet 5/325 mg at bedtime p.r.n. 10. Promethazine 25 mg every 6 hours p.r.n. 11. Carafate 1 gram before meals and at bedtime. 12. Zolpidem 12.5 mg at bedtime. SOCIAL HISTORY: Negative for smoke. Rare for alcohol. FAMILY HISTORY: Mother, hypertension. Father, Parkinson disease. Brother, myocardial infarction. Paternal grandmother, type 2 diabetes and myocardial infarction. VITAL SIGNS: Temperature is 36.4 degrees Celsius, pulse 119, respirations 20, blood pressure 123/86, and pulse ox 97% on room air. REVIEW OF SYSTEMS: This is a well-nourished, chronically ill female, in no acute distress. She does report occasional episodes of shortness of breath without difficulty breathing. No chest pain, palpitations, diaphoresis. She did report episodes of nausea, but no vomiting. She does report bilateral upper quadrant abdominal pain that is sharp in nature. No diarrhea or constipation. No red blood per rectum. No dark tarry stools. No fever or chills. She does report a history of approximately a 50-pound weight loss over the last six to eight months. All other review of systems negative. PHYSICAL EXAMINATION: CHEST: Clear. Good breath sounds bilaterally. HEART: Regular, no murmurs. EXTREMITIES: There is bilateral lower extremity edema approximately 3+. Negative Homans sign. HEENT: No scleral icterus. NECK: No cervical lymphadenopathy. ABDOMEN: Soft and distended with positive fluid shift. There is tenderness with palpation. No peritoneal signs. SKIN: Warm, dry and pink. NEUROLOGIC: Awake, alert, oriented x3. ASSESSMENT AND PLAN: A 59-year-old female with recurrent metastatic breast cancer. At this time, she has developed a recurrent ascites. She did have a CT scan performed in the emergency room, which did show a transition point in the mid to distal ileum. There was a moderate amount of stool seen in the colon as well as small bilateral pleural effusions and bilateral atelectasis. At this time, we will proceed with conservative medical management with NG tube decompression, bowel rest as well as IV fluids, pain and nausea medication. We will also proceed with paracentesis due to the large amount of abdominal ascites. Once patient's abdominal pain has resolved, if she is having a bowel function, then we will start her on a clear liquid diet and advance as tolerated. The patient verbalized understanding of instructions. Job ID: [id number] DocumentID: [id number] Dictated Date: 06/12/2019 11:40:10 Chair Post Machine Operator Date: 06/12/2019 12:20:56 Dictated By: MATTHEW MIRELES
--- NOTE | 2019-06-12 13:22 | OPERATIVE REPORT ---
DATE OF SERVICE: 06/12/2019 ADMITTING PHYSICIAN: Dr. Arteaga. ATTENDING PRIMARY CARE PHYSICIAN: Dr. Rodrigue Orellana. PREOPERATIVE DIAGNOSIS: Recurrent ascites secondary to metastatic breast cancer. POSTOPERATIVE DIAGNOSIS: Recurrent ascites secondary to metastatic breast cancer. PROCEDURE: Paracentesis. SURGEON: Luis Barry MD. AREA REPRESENTATIVE: Pedro Juárez APRN. ANESTHESIA: Local. ESTIMATED BLOOD LOSS: Minimal. FINDINGS: Straw yellow transudative fluid. DISPOSITION: The patient tolerated the procedure well. INDICATIONS: The patient is a 59-year-old female with history of right breast cancer diagnosed in 2003 and underwent a modified radical mastectomy as well as a transverse rectus abdominis myocutaneous flap. She had done well; however, was found to have metastatic disease approximately 4 years ago. Since that time, she has been undergoing different modalities of chemotherapy. In the past several months she has developed recurrent ascites and has had paracentesis done on three separate occasions with the last one done approximately three weeks ago. She presents with abdominal distention with positive fluid shift wave and a CT scan was performed, which did confirm the ascites; however, she does have some dilated loops of small bowel. She states that her last bowel movement was yesterday. DESCRIPTION OF PROCEDURE: The abdomen was prepped and draped in standard surgical fashion. A 1% lidocaine was then used to anesthetize the skin, subcutaneous tissue, muscle layers as well as the peritoneal lining. A vertical skin incision was made using a 15 blade and the catheter and trocar were then introduced, drawing of straw yellow transudative fluid. The catheter was then advanced over the trocar without any resistance. The catheter was then placed to tubing and a gravity drainage bag. The catheter was then covered with sterile gauze followed by Op-Site. The patient tolerated the procedure well. We will continue with drainage until she is less symptomatic and the drainage has decreased and also simultaneously give albumin to replenish her protein stores. Job ID: [id number] DocumentID: [id number] Dictated Date: 06/12/2019 12:36:25 Cannoneer Date: 06/12/2019 13:21:34 Dictated By: LUIS BARRY MD
[2019-06-12 15:31] VITALS: BP 112/73
[2019-06-12] MEDS: AA 4.25% W/LYTES IN D5W IV SOL 1,000 ML IV SCH (16:24)
[2019-06-12 19:03] VITALS: BP 105/66
[2019-06-12] MEDS: ONDANSETRON 4 MG/2 ML (SDV) Z0FRAN IV PRN (20:01)
--- NOTE | 2019-06-12 20:15 | NUR ---
PT CLINIMIX AND IV FLUIDS BOTH RUNNING AT 125ML/HR. THIS NURSE CONTACTED DR LANDRUM REGARDING THE RATE FOR IV FLUIDS. DR LANDRUM ORDERED TO STOP THE IV FLUID.
[2019-06-12] MEDS: PROMETHAZINE INJ 25 MG/ML (PHENERGAN) AMP IV PRN (22:08)
[2019-06-12] MEDS: fentaNYL INJECTION 100 MCG/2 ML AMP IV PRN (22:09)
[2019-06-13] VITALS (10 sets, daily range): BP systolic 99–115; BP diastolic 64–75
[2019-06-13] MEDS: AA 4.25% W/LYTES IN D5W IV SOL 1,000 ML IV SCH ×3 (00:50→23:22)
[2019-06-13 04:39] LABS: BASOPHILS % (AUTO) 1 % (0-10); EOSINOPHILS % (AUTO) 1 % (0-10); HEMATOCRIT 23 % (35-52); LYMPHOCYTES # (AUTO) 0.5 X 10^3 (1.0-4.0); LYMPHOCYTES % (AUTO) 29 % (12-44); MEAN CORPUSCULAR HEMOGLOBIN 25 PG (25-34); MEAN CORPUSCULAR HGB CONC 30 G/DL (32-36); MEAN CORPUSCULAR VOLUME 85 FL (80-99); MEAN PLATELET VOLUME 9.4 FL (7.4-10.4); MONOCYTES # (AUTO) 0.8 X 10^3 (0.0-1.0); MONOCYTES % (AUTO) 44 % (0-12); NEUTROPHILS # (AUTO) 0.5 X 10^3 (1.8-7.8); NEUTROPHILS % (AUTO) 26 % (42-75); PLATELET COUNT 325 10^3/uL (130-400); RED CELL DISTRIBUTION WIDTH 22.5 % (10.0-14.5); WHITE BLOOD COUNT 1.9 10^3/uL (4.3-11.0)
[2019-06-13 04:41] LABS: HEMOGLOBIN 6.7 G/DL (11.5-16.0)
--- NOTE | 2019-06-13 04:55 | NUR ---
Dr Arteaga notified of pt critical hbg 6.7. asked this nurse to call Dr. Gregory due to pt being a cancer pt
[2019-06-13 04:59] LABS: BUN/CREATININE RATIO 16; CALCIUM 7.3 MG/DL (8.5-10.1); CARBON DIOXIDE 22 MMOL/L (21-32); CHLORIDE 99 MMOL/L (98-107); CREATININE SERUM 0.61 MG/DL (0.60-1.30); GFR ESTIMATED > 60; GLUCOSE 130 MG/DL (70-105); POTASSIUM 3.8 MMOL/L (3.6-5.0); SODIUM 129 MMOL/L (135-145)
--- NOTE | 2019-06-13 05:10 | NUR ---
Dr. Gregory called regarding pt critical hgb of 6.7, a change from yesterday's 8.5 Dr Gregory ordered to monitor pt for now
[2019-06-13] MEDS: FAMOTIDINE 20MG/2ML IV (PEPCID) IV SCH (08:50)
--- NOTE | 2019-06-13 10:18 | Oncology Progress Note ---
Subjective Time Seen by a Provider: 10:12 Subjective/Events-last exam Pt's abd pain is better since the paracentasis. She had 9400ml ascites drained out since yesterday. She is feeling very weak today. Sore throat from the NG tube. NG tube has minimal out-put. Dr. Barry's assistant men's lacrosse coach Pedro decided to remove the NG tube today. No fever. Data Review Labs Laboratory Tests 06/13/19 04:10 Laboratory Tests 06/11/19 17:15: White Blood Count 2.1L, Red Blood Count 3.58L, Hemoglobin 9.4L, Hematocrit 30L, Red Cell Distribution Width 22.4H, Platelet Count 437H, Neutrophils (%) (Auto) 41L, Monocytes (%) (Auto) 27H, Neutrophils # (Auto) 0.8L, Lymphocytes # (Auto) 0.7L, Sodium Level 128L, Potassium Level 3.1L, Chloride Level 95L, Carbon Eduard xide Level 20L, Glucose Level 114H, Total Protein 5.3L, Albumin 2.7L 06/11/19 18:42: Urine Specific [place] 1.010L, Urine Protein 1+H, Urine Ketones TRACEH, Urine Bilirubin 1+H, Urine RBC (Auto) 1+H, Urine RBC 5-10H 06/12/19 04:05: White Blood Count 1.8L, Red Blood Count 3.23L, Hemoglobin 8.5L, Hematocrit 27L, Red Cell Distribution Width 22.3H, Platelet Count 421H, Neutrophils (%) (Auto) 23L, Monocytes (%) (Auto) 37H, Neutrophils # (Auto) 0.4L, Lymphocytes # (Auto) 0.7L, Sodium Level 128L, Potassium Level 3.4L, Chloride Level 96L, Carbon Dioxide Level 20L, Glucose Level 147H, Total Protein 4.9L, Albumin 2.4L, Calcium Level 8.0L, Magnesium Level 1.3L 06/13/19 04:10: White Blood Count 1.9L, Red Blood Count 2.67L, Hemoglobin 6.7#*L, Hematocrit 23L , Red Cell Distribution Width 22.5H, Neutrophils (%) (Auto) 26L, Monocytes (%) (Auto) 44H, Neutrophils # (Auto) 0.5L, Lymphocytes # (Auto) 0.5L, Sodium Level 129L, Glucose Level 130H, Calcium Level 7.3L, Mean Corpuscular Hemoglobin Concent 30L Physical Exam Vital Signs Vital Signs - First Documented 06/11/19 17:03 Temp 36.3 Pulse 115 Resp 20 B/P (MAP) 132/98 (109) Pulse Ox 96 O2 Delivery Room Air Capillary Refill : Less Than 3 Seconds Height, Weight, BMI Height: '" Weight: lbs. oz. kg; 25.81 BMI Method: General Appearance: No Apparent Distress HEENT: PERRL/EOMI Respiratory: Lungs Clear, No Accessory Muscle Use, No Respiratory Distress Gastrointestinal: Soft, Other (much less distended. Catheter at the left lower abd. No sign of infection. ) Extremity: Non Tender, No Calf Tenderness, No Pedal Edema Neurologic/Psychiatric: Alert, Oriented x3 Impression & Plan Impression & Plan IMP: 1. Metastatic breast cancer mets to the bones and peritoneal carcinomatosis, large malignant ascites, last chemo 06/03/2019. 2. Small bowel obstruction most likely due to peritoneal carcinomatosis and large ascites. 3. Anasarca. due to low protein and low albumin 4. Neutropenia due to recent chemo. 5. Malnutrition and low albumin due to peritoneal carcinomatosis, and frequent paracentasis losing protein and albumin. 6. Anemia, Hb 6.7, symptomatic Plan: 1. D/C NG tube per Pedro. Continue NPO, bowel rest. Pt will be very poor candidate for surgery. 2. Keep the paracentasis drainage catheter for now. 3. Check CMP to decide if more IV albumin tomorrow. 4. TPN clinimax nutrition support 5. I discussed with patient about the code issue. She is full code at this point. She had made her mind last night at ER and will not change at this point. She is not ready to discuss the hospice neither. 6. I will not use Neupogen growth factor at this point due to the bone mets. 7. Symptoms control with pain meds, antiemetics (phenagren works better than Zofran for her in the past). 8. Once she recovers from this episode, we will need to change chemo regimens. 9. Transfuse one unit RBC today 10. IV protonix daily Clinical Quality Measures DVT/VTE Risk/Contraindication: Risk Factor Score Per Nursin RFS Level Per Nursing on Admit: 4+=Very High HUY STONE MD Jun 13, 2019 10:17
[2019-06-13] MEDS ORDERED: NS IV 500 ML 500 ML IV SCH (11:00)
[2019-06-13] MEDS ORDERED: diphenhydrAMINE 50 MG/ML INJ (BENADRYL) IVP ONE (11:00)
--- NOTE | 2019-06-13 11:17 | NUR ---
visited and [facility] w/ pt.
[2019-06-13] MEDS ORDERED: CHLORASEPTIC SPRAY 177 ML LIQUID MC PRN (11:30)
--- NOTE | 2019-06-13 11:35 | Progress Note ---
Subjective Date Seen by a Provider: Jun 13, 2019 Time Seen by a Provider: 10:30 Subjective/Events-last exam Patient seen with Dr. Barry. Patient reports doing better. Reports abdominal pain has improved. Denies any N/V. Did have liquid stool this AM, no blood noted. Reports breathing better. Did drain off approx. 9.5 L of abdominal fluid yesterday. Denies any Fever/chills. Objective Exam Vital Signs Date Time Temp Pulse Resp B/P (MAP) Pulse Ox O2 Delivery O2 Flow Rate FiO2 06/13/19 08:39 Room Air 06/13/19 07:57 36.3 86 20 107/68 (81) 96 Room Air 06/13/19 04:00 36.7 91 26 99/64 (76) 94 Room Air 06/13/19 00:00 36.7 89 16 101/65 (77) 92 Room Air 06/12/19 20:10 Room Air 06/12/19 19:03 36.5 94 18 105/66 (79) 97 Room Air 06/12/19 15:31 36.3 102 20 112/73 (86) 93 Room Air 06/12/19 11:50 36.9 118 20 115/83 (94) 96 Room Air I & O 06/13/19 07:00 Output Total 52261 ml Balance -48166 ml Capillary Refill : Less Than 3 Seconds General Appearance: No Apparent Distress, WD/WN Neck: Full Range of Motion, Normal Inspection, Supple Respiratory: Normal Breath Sounds, No Accessory Muscle Use, No Respiratory Distress Cardiovascular: Regular Rate, Rhythm, No Edema Gastrointestinal: normal bowel sounds, non tender, soft, other (LLQ paracentesis catheter in place with clear straw colored fluid.) Extremity: Normal Capillary Refill, Normal Inspection, Normal Range of Motion Neurologic/Psychiatric: Alert, Oriented x3 Skin: Normal Color, Warm/Dry Results Lab Laboratory Tests 06/13/19 04:10: White Blood Count 1.9L, Red Blood Count 2.67L, Hemoglobin 6.7#*L, Hematocrit 23L , Mean Corpuscular Volume 85, Mean Corpuscular Hemoglobin 25, Mean Corpuscular Hemoglobin Concent 30L, Red Cell Distribution Width 22.5H, Platelet Count 325, Mean Platelet Volume 9.4, Neutrophils (%) (Auto) 26L, Lymphocytes (%) (Auto) 29, Monocytes (%) (Auto) 44H, Eosinophils (%) (Auto) 1, Basophils (%) (Auto) 1, Neutrophils # (Auto) 0.5L, Lymphocytes # (Auto) 0.5L, Monocytes # (Auto) 0.8, Eosinophils # (Auto) 0.0, Basophils # (Auto) 0.0, Sodium Level 129L, Potassium Level 3.8, Chloride Level 99, Carbon Dioxide Level 22, Anion Gap 8, Blood Urea Nitrogen 10, Creatinine 0.61, Estimat Glomerular Filtration Rate > 60, BUN/Creatinine Ratio 16, Glucose Level 130H, Calcium Level 7.3L Assessment/Plan Assessment/Plan Assess & Plan/Chief Complaint A 59 year old female with metastatic breast cancer, partial small bowel obstruction, ascities. VSS. Hgb 6.7 this AM and transfusion ordered per oncology. Minimal NGT output. Will DC NGT and start clear liquid diet. Continue with conservative medical management. Clinical Quality Measures DVT/VTE Risk/Contraindication: Risk Factor Score Per Nursin RFS Level Per Nursing on Admit: 4+=Very High [facility] Jun 13, 2019 11:34
--- NOTE | 2019-06-13 13:27 | Progress Note - Hospitalist ---
Subjective HPI/CC On Admission Date Seen by Provider: Jun 13, 2019 Time Seen by Provider: 13:22 Pt is a 59yoCF with a PMH of metastatic breast cancer who presented to the ER duet severe abdominal pain. She states that this started on 06/02 following her last chemo but essentially resolved on it's own. Then yesterday at noon her pain came back and was very severe. She described it as stabbing in nature across the upper mid abdomen. This was accompanied with nausea as well. Her last BM was yesterday. She presented to the ER due to the unrelenting nature of her symptoms. In the ER CT was done and revealed a high grade bowel obstruction. Dr Barry was consulted and given her comorbid disease he wanted to make every attempt at conservative management. This morning she states her pain is still severe but the morphine relieves it. Her nausea is controlled with phenergan. She is concerned about the potential for surgery. She is also hopeful to be able to start on carboplatin again because on her last lab draw her "cancer markers" went up. Subjective/Events-last exam Pt reports doing well. Had a BM. NGT out. No new complaints. Pain resolved. Objective Exam Vital Signs Vital Signs Date Time Temp Pulse Resp B/P (MAP) Pulse Ox O2 Delivery O2 Flow Rate FiO2 06/13/19 12:51 37.2 96 19 115/74 99 Room Air Capillary Refill : Less Than 3 Seconds General Appearance: No Apparent Distress, Chronically ill, Cachetic Respiratory: Lungs Clear, No Respiratory Distress Cardiovascular: Regular Rate, Rhythm, No Murmur Gastrointestinal: Normal Bowel Sounds, Non Tender, Soft, Distended Results/Procedures Lab Laboratory Tests 06/13/19 04:10 Patient resulted labs reviewed. Imaging: Reviewed Imaging Report Assessment/Plan Assessment and Plan Assess & Plan/Chief Complaint High Grade Small Bowel Obstruction Ascites Surgery consulted, appreciate recs NGT pulled NPO Swabs to mouth for comfort Continue IVF s/p paracentesis, 9L removed Metastatic Breast Cancer Neutropenia Consult Dr Gregory Patient reports plan to change chemotherapy now that cancer markers trending up ANC 500 but afebrile Malnutrition Hyponatremia Hypokalemia Clinimix Hypothyroidism Resume home meds Diagnosis/Problems Diagnosis/Problems (1) Metastatic cancer (2) SBO (small bowel obstruction) (3) Hyponatremia Status: Acute (4) Hypokalemia Status: Acute (5) Ascites Status: Acute Qualifiers: Ascites type: malignant Qualified Codes: R18.0 - Malignant ascites (6) Intractable nausea and vomiting Status: Chronic (7) Peritoneal carcinomatosis Status: Chronic Clinical Quality Measures DVT/VTE Risk/Contraindication: Risk Factor Score Per Nursin RFS Level Per Nursing on Admit: 4+=Very High ZAIN LANDRUM MD Jun 13, 2019 13:27
[2019-06-13] MEDS: morphine INJ 4 MG/ML 1 ML (VIAL/SYRINGE) IV PRN ×2 (15:22→19:49)
[2019-06-13] MEDS: PROMETHAZINE INJ 25 MG/ML (PHENERGAN) AMP IV PRN (15:26)
[2019-06-14 04:34] VITALS: BP 105/65
[2019-06-14] MEDS: fentaNYL INJECTION 100 MCG/2 ML AMP IV PRN ×2 (05:13→20:43)
[2019-06-14] MEDS: LEVOTHYROXINE 25 MCG (LEVOTHROID) TAB PO SCH (06:47)
[2019-06-14 08:18] VITALS: BP 109/68
[2019-06-14] MEDS: PANTOPRAZOLE 40 MG (PROTONIX) VIAL IV SCH (08:54)
[2019-06-14] MEDS: AA 4.25% W/LYTES IN D5W IV SOL 1,000 ML IV SCH ×4 (09:01→23:37)
[2019-06-14 09:02] LABS: BASOPHILS % (AUTO) 0 % (0-10); EOSINOPHILS # (AUTO) 0.1 10^3/uL (0.0-0.3); EOSINOPHILS % (AUTO) 3 % (0-10); HEMATOCRIT 29 % (35-52); HEMOGLOBIN 9.1 G/DL (11.5-16.0); LYMPHOCYTES # (AUTO) 0.9 X 10^3 (1.0-4.0); LYMPHOCYTES % (AUTO) 33 % (12-44); MEAN CORPUSCULAR HEMOGLOBIN 26 PG (25-34); MEAN CORPUSCULAR HGB CONC 31 G/DL (32-36); MEAN CORPUSCULAR VOLUME 85 FL (80-99); MEAN PLATELET VOLUME 9.2 FL (7.4-10.4); MONOCYTES # (AUTO) 0.8 X 10^3 (0.0-1.0); MONOCYTES % (AUTO) 29 % (0-12); NEUTROPHILS % (AUTO) 35 % (42-75); PLATELET COUNT 310 10^3/uL (130-400); RED CELL DISTRIBUTION WIDTH 20.9 % (10.0-14.5); WHITE BLOOD COUNT 2.8 10^3/uL (4.3-11.0)
[2019-06-14 09:05] LABS: SMEAR SCAN COMMENT YES
--- NOTE | 2019-06-14 09:23 | Oncology Progress Note ---
Subjective Date Seen by a Provider: Jun 14, 2019 Time Seen by a Provider: 13:53 Subjective/Events-last exam The peritoneal catheter drainage stopped working since yesterday late afternoon. We called Dr Barry and he instructed to flush the catheter. It works now. Pt has put out [id number] ml of ascites since the catheter re-opened (less than 24 hrs) Dr. Barry is going to see if we can schedule with day surgery for a long chain beamer peritoneal drainage catheter so that patient can keep it and go to home with it. NG tube was out yesterday. Pt started to drink broth and so far handled OK. Pt had bowel movement yesterday and today. Dr Barry stated it is OK to advance to the soft food today. Abd pain is much improved. No more nausea and vomiting. No fever. Data Review Labs Laboratory Tests 06/14/19 08:50 Laboratory Tests 06/11/19 17:15: White Blood Count 2.1L, Red Blood Count 3.58L, Hemoglobin 9.4L, Hematocrit 30L, Red Cell Distribution Width 22.4H, Platelet Count 437H, Neutrophils (%) (Auto) 41L, Monocytes (%) (Auto) 27H, Neutrophils # (Auto) 0.8L, Lymphocytes # (Auto) 0.7L, Sodium Level 128L, Potassium Level 3.1L, Chloride Level 95L, Carbon Dioxide Level 20L, Glucose Level 114H, Total Protein 5.3L, Albumin 2.7L 06/11/19 18:42: Urine Specific [place] 1.010L, Urine Protein 1+H, Urine Ketones TRACEH, Urine Bilirubin 1+H, Urine RBC (Auto) 1+H, Urine RBC 5-10H 06/12/19 04:05: White Blood Count 1.8L, Red Blood Count 3.23L, Hemoglobin 8.5L, Hematocrit 27L, Red Cell Distribution Width 22.3H, Platelet Count 421H, Neutrophils (%) (Auto) 23L, Monocytes (%) (Auto) 37H, Neutrophils # (Auto) 0.4L, Lymphocytes # (Auto) 0.7L, Sodium Level 128L, Potassium Level 3.4L, Chloride Level 96L, Carbon Dioxide Level 20L, Glucose Level 147H, Total Protein 4.9L, Albumin 2.4L, Calcium Level 8.0L, Magnesium Level 1.3L 06/13/19 04:10: White Blood Count 1.9L, Red Blood Count 2.67L, Hemoglobin 6.7#*L, Hematocrit 23L , Red Cell Distribution Width 22.5H, Neutrophils (%) (Auto) 26L, Monocytes (%) (Auto) 44H, Neutrophils # (Auto) 0.5L, Lymphocytes # (Auto) 0.5L, Sodium Level 129L, Glucose Level 130H, Calcium Level 7.3L, Mean Corpuscular Hemoglobin Concent 30L 06/14/19 08:50: White Blood Count 2.8L, Red Blood Count 3.48L, Hemoglobin 9.1#L, Hematocrit 29L, Mean Corpuscular Hemoglobin Concent 31L, Red Cell Distribution Width 20.9H, Neutrophils (%) (Auto) 35L, Monocytes (%) (Auto) 29H, Neutrophils # (Auto) 1.0L, Lymphocytes # (Auto) 0.9L, Sodium Level 132L, Creatinine 0.55L, Calcium Level 7.7L, Total Protein 4.3L, Albumin 2.2L 06/14/19 11:17: Physical Exam Vital Signs Vital Signs - First Documented 06/11/19 17:03 Temp 36.3 Pulse 115 Resp 20 B/P (MAP) 132/98 (109) Pulse Ox 96 O2 Delivery Room Air Capillary Refill : Less Than 3 Seconds Height, Weight, BMI Height: '" Weight: lbs. oz. kg; 25.81 BMI Method: General Appearance: No Apparent Distress Respiratory: Lungs Clear, No Accessory Muscle Use, No Respiratory Distress Gastrointestinal: Soft, Distended Extremity: No Calf Tenderness, Pedal Edema Neurologic/Psychiatric: Alert, Oriented x3 Impression & Plan Impression & Plan IMP: 1. Metastatic breast cancer mets to the bones and peritoneal carcinomatosis, velasquez argalon malignant ascites, last chemo 06/03/2019. 2. Small bowel obstruction most likely due to peritoneal carcinomatosis and large ascites. Much improved since she had perasentesis 3. Anasarca. due to low protein and low albumin 4. Neutropenia due to recent chemo. Recovering. 5. Malnutrition and low albumin due to peritoneal carcinomatosis, and frequent paracentasis losing protein and albumin. 6. Anemia, Hb 6.7 06/13/19, symptomatic, s/p one unit RBC and Hb up to 9.1 on 06/14/19. 7. Hypoalbunemia. Albumin 2.2 today after we gave her 25 gram yesterday. Plan: 1. nursing home peritoneal catheter by Dr Barry. 2. Keep the current temporary paracentesis drainage catheter for now. 3. Albumin IV q8hrs 4. TPN clinimax nutrition support 5. I discussed with patient about the code issue. She is full code at this point. She had made her mind at ER and will not change it at this point. She is not ready to discuss the hospice neither. 6. I will not use Neupogen growth factor at this point due to the bone mets. 7. Symptoms control with pain meds, antiemetics (phenagren works better than Zofran for her in the past). 8. Once her blood counts recover from last chemo, we will need to change chemo regimens. 9. Change IV protonix to PO 10. I have discussed with Dr West and he is OK to postpone the discharge home. Clinical Quality Measures DVT/VTE Risk/Contraindication: Risk Factor Score Per Nursin RFS Level Per Nursing on Admit: 4+=Very High HUY STONE MD Jun 14, 2019 09:23
[2019-06-14 09:26] LABS: ALANINE AMINOTRANSFERASE 6 U/L (0-55); ALBUMIN 2.2 GM/DL (3.2-4.5); ALKALINE PHOSPHATASE 63 U/L (40-136); BILIRUBIN,TOTAL 0.3 MG/DL (0.1-1.0); BUN/CREATININE RATIO 18; CALCIUM 7.7 MG/DL (8.5-10.1); CARBON DIOXIDE 24 MMOL/L (21-32); CHLORIDE 102 MMOL/L (98-107); CREATININE SERUM 0.55 MG/DL (0.60-1.30); GFR ESTIMATED > 60; GLUCOSE 98 MG/DL (70-105); POTASSIUM 3.6 MMOL/L (3.6-5.0); SODIUM 132 MMOL/L (135-145); TOTAL PROTEIN 4.3 GM/DL (6.4-8.2)
[2019-06-14] MEDS ORDERED: ALBUMIN 25% 25 GM/100 ML 100 ML IV NR (09:45)
--- NOTE | 2019-06-14 10:18 | NUR ---
Pt feels much better and would like to be discharged to home A physician's order for a front wheel walker would be helpful to aid her steadiness in the home.
--- NOTE | 2019-06-14 10:50 | NUR ---
"RD ASSESSMENT PMHx: CA(mets-breast,bone); HTN; GERD; hypothyroidism; ascites PT INTERACTION: Pt was awake and pleasant during nutrition assessment. Pt states current appetite is pretty good, and was the same prior to admit. Note avg PO intake of 25-50% x2meal, per chart review. Pt states slowly getting back to regular diet at home, and has no issues with chewing/swallowing food. Pt states some recent issues with n/v at this time. Pt states besides her SBO, she has had no recent issues with constipation/diarrhea. Note last BM was 06/13 and pt not currently on bowel regimen per chart review. Pt states no recent wt changes, outside of wt gain d/t fluid retention. Note recent 2# wt loss x2mon, per chart review. ABNORMAL NUTRITION-RELATED LAB VALUES LOW: Na 129; Ca 7.3 HIGH: glu 130 Est. kcal needs: 4318-8899 kcal | 25-30 kcal/kg Est. Pro needs: 73-87 g Pro | 1.0-1.2 g Pro/kg PES STATEMENT: Inadequate oral intake (NI-2.1) related to nausea | vomiting | loss of appetite | SBO as evidenced by pt interview | chart review | avg PO intake 25-50% x2meal INTERVENTION: Continue with current diet order of Clear Liquid diet. Would recommend advancing diet when medically able and as tolerated. Discussed adding nutrition supplementation to meals with pt. Pt states she does not like Ensure Clear (the only supplement we can offer with this diet order). Will continue to follow and reassess as pt needs, intake, and status change. MONITOR/EVALUATE: PO Intake; Plan of Care; Hydration Status; Weight Status; Lab Values Abdoulaye Chacon, MS, RD, LD"
[2019-06-14 12:00] VITALS: BP 113/66
[2019-06-14] MEDS: morphine INJ 4 MG/ML 1 ML (VIAL/SYRINGE) IV PRN ×2 (12:41→23:42)
[2019-06-14] MEDS: MAGNESIUM 1 GM/100 ML IVPB 100 ML IV SCH ×4 (12:41→15:12)
--- NOTE | 2019-06-14 15:17 | Progress Note ---
Subjective Date Seen by a Provider: Jun 14, 2019 Time Seen by a Provider: 14:45 Subjective/Events-last exam Patient seen with Dr. Barry. Patient reports doing well. Tolerating clear liquid diet. Paracentesis draining. Denies any N/V, F/C, or abdominal pain. Passing flatus and having BMs. Reports would like to try soft foods. Objective Exam Vital Signs Date Time Temp Pulse Resp B/P (MAP) Pulse Ox O2 Delivery O2 Flow Rate FiO2 06/14/19 12:00 35.8 81 20 113/66 (82) 97 Room Air 06/14/19 08:18 35.7 81 16 109/68 (82) 97 Room Air 06/14/19 04:34 36.4 73 20 105/65 (78) 95 Room Air 06/13/19 23:59 36.9 73 18 106/66 (79) 94 Room Air 06/13/19 19:49 37.4 89 20 112/67 (82) 97 Room Air 06/13/19 19:40 Room Air 06/13/19 16:00 37.4 91 18 110/73 (85) 97 Room Air I & O 06/14/19 07:00 Intake Total 3488 ml Output Total 720 ml Balance 2768 ml Capillary Refill : Less Than 3 Seconds General Appearance: No Apparent Distress, WD/WN Neck: Full Range of Motion, Normal Inspection, Supple Respiratory: Normal Breath Sounds, No Accessory Muscle Use, No Respiratory Distress Cardiovascular: Regular Rate, Rhythm, No Edema Gastrointestinal: normal bowel sounds, non tender, soft, distended, other (Paracentesis draining clear yellow drainage.) Extremity: Normal Capillary Refill, Normal Inspection, Normal Range of Motion Neurologic/Psychiatric: Alert, Oriented x3 Skin: Normal Color, Warm/Dry Results Lab Laboratory Tests 06/14/19 08:50: White Blood Count 2.8L, Red Blood Count 3.48L, Hemoglobin 9.1#L, Hematocrit 29L, Mean Corpuscular Volume 85, Mean Corpuscular Hemoglobin 26, Mean Corpuscular Hemoglobin Concent 31L, Red Cell Distribution Width 20.9H, Platelet Count 310, Mean Platelet Volume 9.2, Neutrophils (%) (Auto) 35L, Lymphocytes (%) (Auto) 33, Monocytes (%) (Auto) 29H, Eosinophils (%) (Auto) 3, Basophils (%) (Auto) 0, Neutrophils # (Auto) 1.0L, Lymphocytes # (Auto) 0.9L, Monocytes # (Auto) 0.8, Eosinophils # (Auto) 0.1, Basophils # (Auto) 0.0, Sodium Level 132L, Potassium Level 3.6, Chloride Level 102, Carbon Dioxide Level 24, Anion Gap 6, Blood Urea Nitrogen 10, Creatinine 0.55L, Estimat Glomerular Filtration Rate > 60, BUN/Creatinine Ratio 18, Glucose Level 98, Calcium Level 7.7L, Corrected Calcium 9.1, Total Bilirubin 0.3, Aspartate Amino Transf (AST/SGOT) 17, Alanine Aminotransferase (ALT/SGPT) 6, Alkaline Phosphatase 63, Total Protein 4.3L, Albumin 2.2L, Smear Scan YES 06/14/19 11:17: Lab Scanned Report Transfusion Reaction Form Assessment/Plan Assessment/Plan Assess & Plan/Chief Complaint A 59 year old female with metastatic breast cancer, partial small bowel obstruction, ascities. VSS. Hgb 9.1 this AM. Will proceed with placement of tunneled paracentesis catheter tomorrow. Continue with conservative medical management. Clinical Quality Measures DVT/VTE Risk/Contraindication: Risk Factor Score Per Nursin RFS Level Per Nursing on Admit: 4+=Very High [facility] Jun 14, 2019 15:17
[2019-06-14 15:58] VITALS: BP 115/63
--- NOTE | 2019-06-14 15:59 | Progress Note - Hospitalist ---
Subjective HPI/CC On Admission Date Seen by Provider: Jun 14, 2019 Time Seen by Provider: 08:25 Pt is a 59yoCF with a PMH of metastatic breast cancer who presented to the ER duet severe abdominal pain. She states that this started on 06/02 following her last chemo but essentially resolved on it's own. Then yesterday at noon her pain came back and was very severe. She described it as stabbing in nature across the upper mid abdomen. This was accompanied with nausea as well. Her last BM was yesterday. She presented to the ER due to the unrelenting nature of her symptoms. In the ER CT was done and revealed a high grade bowel obstruction. Dr Barry was consulted and given her comorbid disease he wanted to make every attempt at conservative management. This morning she states her pain is still severe but the morphine relieves it. Her nausea is controlled with phenergan. She is concerned about the potential for surgery. She is also hopeful to be able to start on carboplatin again because on her last lab draw her "cancer markers" went up. Subjective/Events-last exam She reports feeling better. She denies abdominal pain. She denies nausea and vomiting. She is having bowel movements. She denies fevers and chills. She denies chest pain and dyspnea. She has not had much drainage from her peritoneal catheter. Objective Exam Vital Signs Vital Signs Date Time Temp Pulse Resp B/P (MAP) Pulse Ox O2 Delivery O2 Flow Rate FiO2 06/14/19 12:00 35.8 81 20 113/66 (82) 97 Room Air Capillary Refill : Less Than 3 Seconds General Appearance: No Apparent Distress, WD/WN Respiratory: Lungs Clear, Normal Breath Sounds, No Respiratory Distress Cardiovascular: Regular Rate, Rhythm, No Murmur Gastrointestinal: Normal Bowel Sounds, Soft, Other (peritoneal catheter in place) Extremity: Normal Inspection, Non Tender, Pedal Edema Neurologic/Psychiatric: Alert, Oriented x3, No Motor/Sensory Deficits, Normal Mood/Affect Skin: Normal Color, Warm/Dry Results/Procedures Lab Laboratory Tests 06/14/19 08:50 Patient resulted labs reviewed. Imaging: Reviewed Imaging Report Assessment/Plan Assessment and Plan Assess & Plan/Chief Complaint Ascites Hypoalbuminemia Malnutrition -Surgery planning to replace peritoneal catheter tomorrow -Oncology recommends one dose of Albumin today High Grade Small Bowel Obstruction -Resolved -Surgery consulted, appreciate recs -Dysphagia diet Metastatic Breast Cancer Neutropenia Anemia -Dr Gregory consulted -s/p one unit PRBC -Hgb and WBC improving Hyponatremia Hypokalemia -Clinimix Hypothyroidism -Resume home meds Diagnosis/Problems Diagnosis/Problems (1) SBO (small bowel obstruction) Status: Resolved Resolution Date/Time: 06/14/19 @ 15:59 (2) Metastatic cancer Status: Chronic (3) Ascites Status: Acute Qualifiers: Ascites type: malignant Qualified Codes: R18.0 - Malignant ascites Clinical Quality Measures DVT/VTE Risk/Contraindication: Risk Factor Score Per Nursin RFS Level Per Nursing on Admit: 4+=Very High TASHA SMITH MD Jun 14, 2019 15:59
[2019-06-14] MEDS ORDERED: ALBUMIN 25% 25 GM/100 ML 100 ML IV ONE (18:00)
[2019-06-14] MEDS: ALBUMIN 25% 25 GM/100 ML 100 ML IV SCH (18:46)
[2019-06-14 20:00] VITALS: BP 111/61
[2019-06-14 23:39] VITALS: BP 115/64
[2019-06-14] MEDS: ONDANSETRON 4 MG/2 ML (SDV) Z0FRAN IV PRN (23:42)
[2019-06-15] VITALS (8 sets, daily range): BP systolic 94–107; BP diastolic 52–67
[2019-06-15] MEDS: ALBUMIN 25% 25 GM/100 ML 100 ML IV SCH ×2 (02:13→09:41)
[2019-06-15] MEDS: AA 4.25% W/LYTES IN D5W IV SOL 1,000 ML IV SCH (03:39)
[2019-06-15] MEDS: LEVOTHYROXINE 25 MCG (LEVOTHROID) TAB PO SCH (06:52)
[2019-06-15] MEDS: PANTOPRAZOLE 40 MG (PROTONIX) VIAL IV SCH (08:15)
--- NOTE | 2019-06-15 10:01 | Diagnostic Imaging Report ---
Indication: Ascites. Sonographic surveillance and marking for planned paracentesis performed, fluid greatest in the right lower quadrant. Impression: Limited localization ultrasound for planned paracentesis. Dictated by: Dictated on workstation # [id number]
[2019-06-15] MEDS ORDERED: LIDOCAINE/EPI 1%-1:100,000 (XYLOCAINE) 20ML ONE (10:10)
--- NOTE | 2019-06-15 10:14 | Progress Note-Pre Operative ---
Pre-Operative Progress Note H&P Reviewed The H&P was reviewed, patient examined and no changes noted. Date Seen by Provider: Jun 15, 2019 Time Seen by Provider: : Date H&P Reviewed: Jun 15, 2019 Time H&P Reviewed: : Pre-Operative Diagnosis: recurrent symptomatic malignant ascitis LUIS ALONSO MD Jun 15, 2019 10:14
[2019-06-15] MEDS ORDERED: fentaNYL INJECTION 100 MCG/2 ML AMP ONE (10:36)
[2019-06-15] MEDS ORDERED: PROPOFOL INJECTION 50 ML IV ONE (10:36)
[2019-06-15] MEDS ORDERED: MIDAZOLAM 2 MG/2 ML (VERSED) VIAL ONE (10:36)
[2019-06-15] MEDS ORDERED: ceFAZolin INJECTION 1,000 MG ONE (10:52)
--- NOTE | 2019-06-15 11:18 | Progress Note ---
Progress Note Assessment/Plan Date Seen by Provider: Jun 15, 2019 Time Seen by Provider: 11:14 Events since last exam Pt went to OR to have correction peritoneal catheter placement by Dr Barry this morning. She can be discharged home after the procedure today with clear instructions how to take care of the catheter at home. I will see her at the cancer center this 06/17/19. Assessment/Plan IMP: 1. Metastatic breast cancer mets to the bones and peritoneal carcinomatosis, large malignant ascites, last chemo 06/03/2019. 2. Small bowel obstruction most likely due to peritoneal carcinomatosis and large ascites. Much improved since she had perasentesis 3. Anasarca. due to low protein and low albumin 4. Neutropenia due to recent chemo. Recovering. 5. Malnutrition and low albumin due to peritoneal carcinomatosis, and frequent paracentasis losing protein and albumin. 6. Anemia, Hb 6.7 06/13/19, symptomatic, s/p one unit RBC and Hb up to 9.1 on 06/14/19. 7. Hypoalbunemia. Albumin 2.2 today after we gave her 25 gram yesterday. Plan: 1. Discharge home after correction peritoneal catheter by Dr Barry. 2. Keep her on oral protonix for now. 3. High protein diet. 4. See me at cancer center as scheduled. Vitals Last set of Vitals Signs Vital Signs Date Time Temp Pulse Resp B/P (MAP) Pulse Ox O2 Delivery O2 Flow Rate FiO2 06/15/19 08:00 37.0 77 16 107/67 (80) 98 Room Air I&O I&O Intake and Output 06/15/19 00:00 Intake Total 4290 ml Output Total 5210 ml Balance -920 ml Intake Oral 1990 ml IV Total 2300 ml Output Urine Total 650 ml Drainage Total 735 ml Other 3825 ml # Voids 6 # Bowel Movements 5 Labs Laboratory Tests 06/14/19 11:17: Lab Scanned Report Transfusion Reaction Form Clinical Quality Measures DVT/VTE Risk/Contraindication: Risk Factor Score Per Nursin RFS Level Per Nursing on Admit: 4+=Very High HUY STONE MD Jun 15, 2019 11:18
--- NOTE | 2019-06-15 11:24 | Progress Note-Post Operative ---
Post-Operative Progess Note Surgeon (s)/Medical Claims Manager (s) Surgeon LUIS ALONSO MD Medical Claims Manager: none Pre-Operative Diagnosis recurrent symptomatic malignant ascitis Post-Operative Diagnosis same Procedure & Operative Findings Date of Procedure 06/15/19 Procedure Performed/Findings tunneled peritoneal catheter placement. Anesthesia Type mac with local Estimated Blood Loss Estimated blood loss (mL): minimal Specimens/Packing Specimens Removed none LUIS ALONSO MD Jun 15, 2019 11:24
[2019-06-15] MEDS ORDERED: MEPERIDINE (DEMEROL) INJ 50 MG/ML IVP ONE (11:30)
[2019-06-15] MEDS ORDERED: ONDANSETRON 4 MG/2 ML (SDV) Z0FRAN IVP PRN (11:30)
[2019-06-15] MEDS ORDERED: fentaNYL INJECTION 100 MCG/2 ML AMP IVP ONE (11:30)
--- NOTE | 2019-06-15 13:51 | OPERATIVE REPORT ---
DATE OF SERVICE: 06/15/2019 ATTENDING PRIMARY CARE PHYSICIAN: Dr. Rodrigue Orellana. PREOPERATIVE DIAGNOSIS: Recurrent symptomatic malignant ascites. POSTOPERATIVE DIAGNOSIS: Recurrent symptomatic malignant ascites. PROCEDURE: Placement of tunneled peritoneal catheter placement. SURGEON: Luis Alonso MD ANESTHESIA: Monitored anesthesia care with local. ESTIMATED BLOOD LOSS: Minimal. FINDINGS: Straw yellow transudative fluid. DISPOSITION: The patient tolerated the procedure well. INDICATIONS: The patient is a 59-year-old female who was diagnosed with right breast invasive lobular carcinoma in 2003 and underwent a modified radical mastectomy as well as transverse rectus abdominis myocutaneous flap. She was found to have recurrent metastatic disease approximately 5 years ago. Since that time, she has been receiving different IV chemotherapies. She has developed recurrent ascites and has had 4 paracentesis in the past few months. Due to her increased recurrence of fluid accumulation, it was decided to proceed with placement of a tunneled peritoneal catheter for home and self-drainage of ascites. DESCRIPTION OF PROCEDURE: The patient was brought to the operating room, laid supine on the table. After adequate IV pain and sedative medications and monitored anesthesia care, the abdomen was prepped and draped in standard surgical fashion. Before the procedure, the abdomen was marked on the right side by ultrasound. A 1% lidocaine was then used to anesthetize the overlying skin in the right lower abdominal quadrant and two vertical skin incisions were made using a 15 blade approximately 5 cm apart. The catheter was then placed onto the tunneler and the catheter was placed through the subcutaneous tissue until the cuff was in the subcutaneous tissue. The cannulating needle was then placed withdrawing of straw yellow transudative fluid and the guidewire was then inserted. The cannulating needle removed and then the dilator and sheath were then introduced over the guidewire. The guidewire and dilator were then removed and the catheter was placed through the sheath into the peritoneal cavity. The sheath was then removed. The skin incisions were then reapproximated using 3-0 nylon interrupted sutures. The catheter was then connected to gravity drainage bag temporarily to continue drainage until asymptomatic and then the drainage bag can be removed and she may be discharged home at that time. The patient tolerated the procedure well. We will start IV normal pain medication as well as a regular diet and once she is tolerating diet and is asymptomatic from drainage of her ascites, she may be discharged home. Job ID: [id number] DocumentID: [id number] Dictated Date: 06/15/2019 11:31:31 Assembler Truck Trailer Date: 06/15/2019 13:49:30 Dictated By: LUIS ALONSO MD MTDD
--- NOTE | 2019-06-15 14:14 | NUR ---
Pt received Plurex drainage teaching from nursing staff. She will be discharged home today and will be seen by Dr. Gregory at the Cancer Center on June 16. Important Message from Medicare reviewed with her and she has no plans to appeal discharge. Copy placed in chart.
--- NOTE | 2019-06-15 15:12 | NUR ---
Prior to discharge, a Front wheel walker was delivered to her room
== END 2019-06-15 15:15 | disposition home or self-care (01) | DRG 375 ==
LOC: EDUNIT# 16:56 → ER 16:58 → 4TH 20:00
PROVIDERS: ADMIT Family Medicine; ATTEND Family Medicine
PROC: 0W9G30Z Drainage of Peritoneal Cavity with Drainage Device, Percutaneous Approach (ICD-10-PCS; principal; 2019-06-12)
PROC: 0JH83XZ Insertion of Tunneled Vascular Access Device into Abdomen Subcutaneous Tissue and Fascia, Percutaneous Approach (ICD-10-PCS; 2019-06-15)
DX: C78.6 Secondary malignant neoplasm of retroperitoneum and peritoneum (principal); K56.690 Other partial intestinal obstruction; R18.0 Malignant ascites; C79.51 Secondary malignant neoplasm of bone; E46 Unspecified protein-calorie malnutrition; E87.1 Hypo-osmolality and hyponatremia; J98.11 Atelectasis; D70.1 Agranulocytosis secondary to cancer chemotherapy; D64.9 Anemia, unspecified; E88.09 Other disorders of plasma-protein metabolism, not elsewhere classified; I10 Essential (primary) hypertension; J45.909 Unspecified asthma, uncomplicated; E87.6 Hypokalemia; E86.1 Hypovolemia; E03.9 Hypothyroidism, unspecified; G62.9 Polyneuropathy, unspecified; K21.9 Gastro-esophageal reflux disease without esophagitis; F90.9 Attention-deficit hyperactivity disorder, unspecified type; G47.00 Insomnia, unspecified; F41.9 Anxiety disorder, unspecified; F32.9 Major depressive disorder, single episode, unspecified; Z85.3 Personal history of malignant neoplasm of breast; Z96.0 Presence of urogenital implants
CPT/HCPCS: 36415; 49083; 71045; 74177; 80048; 80053; 81000; 83690; 83735; 85007; 85025; 85027; 86850; 86900; 86901; 86920; 87081; 96374; 96375; 96376

== ENCOUNTER 2019-06-17 09:08 | Outpatient (RCR) | payer MEDICARE, OTHER ==
[2019-03-22 14:29] LABS: BASOPHILS % (AUTO) 0 % (0-10); EOSINOPHILS # (AUTO) 0.2 10^3/uL (0.0-0.3); EOSINOPHILS % (AUTO) 4 % (0-10); HEMATOCRIT 31 % (35-52); HEMOGLOBIN 9.7 G/DL (11.5-16.0); LYMPHOCYTES # (AUTO) 0.8 X 10^3 (1.0-4.0); LYMPHOCYTES % (AUTO) 19 % (12-44); MEAN CORPUSCULAR HEMOGLOBIN 25 PG (25-34); MEAN CORPUSCULAR HGB CONC 31 G/DL (32-36); MEAN CORPUSCULAR VOLUME 80 FL (80-99); MEAN PLATELET VOLUME 8.8 FL (7.4-10.4); MONOCYTES # (AUTO) 0.4 X 10^3 (0.0-1.0); MONOCYTES % (AUTO) 9 % (0-12); NEUTROPHILS # (AUTO) 3.1 X 10^3 (1.8-7.8); NEUTROPHILS % (AUTO) 69 % (42-75); PLATELET COUNT 338 10^3/uL (130-400); RED CELL DISTRIBUTION WIDTH 16.8 % (10.0-14.5); WHITE BLOOD COUNT 4.4 10^3/uL (4.3-11.0)
[2019-03-22 14:45] LABS: ALANINE AMINOTRANSFERASE 34 U/L (0-55); ALBUMIN 4.1 GM/DL (3.2-4.5); ALKALINE PHOSPHATASE 73 U/L (40-136); BILIRUBIN,TOTAL 0.2 MG/DL (0.1-1.0); BUN/CREATININE RATIO 15; CALCIUM 8.6 MG/DL (8.5-10.1); CARBON DIOXIDE 20 MMOL/L (21-32); CHLORIDE 105 MMOL/L (98-107); CREATININE SERUM 0.78 MG/DL (0.60-1.30); GFR ESTIMATED > 60; GLUCOSE 131 MG/DL (70-105); POTASSIUM 3.4 MMOL/L (3.6-5.0); SODIUM 136 MMOL/L (135-145); TOTAL PROTEIN 7.1 GM/DL (6.4-8.2)
[2019-04-16 09:15] LABS: BASOPHILS % (AUTO) 0 % (0-10); EOSINOPHILS # (AUTO) 0.2 10^3/uL (0.0-0.3); EOSINOPHILS % (AUTO) 2 % (0-10); HEMATOCRIT 30 % (35-52); HEMOGLOBIN 9.3 G/DL (11.5-16.0); LYMPHOCYTES % (AUTO) 12 % (12-44); MEAN CORPUSCULAR HEMOGLOBIN 25 PG (25-34); MEAN CORPUSCULAR HGB CONC 31 G/DL (32-36); MEAN CORPUSCULAR VOLUME 80 FL (80-99); MEAN PLATELET VOLUME 8.4 FL (7.4-10.4); MONOCYTES # (AUTO) 0.9 X 10^3 (0.0-1.0); MONOCYTES % (AUTO) 11 % (0-12); NEUTROPHILS # (AUTO) 6.4 X 10^3 (1.8-7.8); NEUTROPHILS % (AUTO) 75 % (42-75); PLATELET COUNT 515 10^3/uL (130-400); RED CELL DISTRIBUTION WIDTH 17.8 % (10.0-14.5); WHITE BLOOD COUNT 8.6 10^3/uL (4.3-11.0)
[2019-04-16 09:31] LABS: ALANINE AMINOTRANSFERASE 10 U/L (0-55); ALBUMIN 3.1 GM/DL (3.2-4.5); ALKALINE PHOSPHATASE 49 U/L (40-136); BILIRUBIN,TOTAL 0.2 MG/DL (0.1-1.0); BUN/CREATININE RATIO 9; CALCIUM 8.2 MG/DL (8.5-10.1); CARBON DIOXIDE 24 MMOL/L (21-32); CHLORIDE 103 MMOL/L (98-107); CREATININE SERUM 0.79 MG/DL (0.60-1.30); GFR ESTIMATED > 60; GLUCOSE 107 MG/DL (70-105); POTASSIUM 3.7 MMOL/L (3.6-5.0); SODIUM 134 MMOL/L (135-145); TOTAL PROTEIN 6.1 GM/DL (6.4-8.2)
[2019-05-05 16:25] LABS: BASOPHILS % (AUTO) 0 % (0-10); EOSINOPHILS % (AUTO) 0 % (0-10); HEMATOCRIT 37 % (35-52); LYMPHOCYTES # (AUTO) 1.4 X 10^3 (1.0-4.0); LYMPHOCYTES % (AUTO) 12 % (12-44); MEAN CORPUSCULAR HEMOGLOBIN 26 PG (25-34); MEAN CORPUSCULAR HGB CONC 33 G/DL (32-36); MEAN CORPUSCULAR VOLUME 79 FL (80-99); MEAN PLATELET VOLUME 9.9 FL (7.4-10.4); MONOCYTES # (AUTO) 0.5 X 10^3 (0.0-1.0); MONOCYTES % (AUTO) 5 % (0-12); NEUTROPHILS # (AUTO) 9.3 X 10^3 (1.8-7.8); NEUTROPHILS % (AUTO) 83 % (42-75); PLATELET COUNT 387 10^3/uL (130-400); RED CELL DISTRIBUTION WIDTH 19.8 % (10.0-14.5); WHITE BLOOD COUNT 11.3 10^3/uL (4.3-11.0)
[2019-05-05 16:28] LABS: HEMOGLOBIN 12.2 G/DL (11.5-16.0)
[2019-05-05 16:58] LABS: ALANINE AMINOTRANSFERASE 33 U/L (0-55); ALBUMIN 3.2 GM/DL (3.2-4.5); ALKALINE PHOSPHATASE 70 U/L (40-136); BILIRUBIN,TOTAL 0.6 MG/DL (0.1-1.0); BUN/CREATININE RATIO 17; CALCIUM 9.3 MG/DL (8.5-10.1); CARBON DIOXIDE 18 MMOL/L (21-32); CHLORIDE 98 MMOL/L (98-107); CREATININE SERUM 0.75 MG/DL (0.60-1.30); GFR ESTIMATED > 60; GLUCOSE 73 MG/DL (70-105); POTASSIUM 3.8 MMOL/L (3.6-5.0); SODIUM 132 MMOL/L (135-145); TOTAL PROTEIN 6.4 GM/DL (6.4-8.2)
[2019-05-10 11:44] LABS: ALANINE AMINOTRANSFERASE 17 U/L (0-55); ALBUMIN 3.3 GM/DL (3.2-4.5); ALKALINE PHOSPHATASE 56 U/L (40-136); BILIRUBIN,TOTAL 0.4 MG/DL (0.1-1.0); BUN/CREATININE RATIO 14; CARBON DIOXIDE 15 MMOL/L (21-32); CHLORIDE 101 MMOL/L (98-107); CREATININE SERUM 0.74 MG/DL (0.60-1.30); GFR ESTIMATED > 60; GLUCOSE 73 MG/DL (70-105); POTASSIUM 3.5 MMOL/L (3.6-5.0); SODIUM 128 MMOL/L (135-145); TOTAL PROTEIN 6.1 GM/DL (6.4-8.2)
[2019-05-10 12:07] LABS: BASOPHILS % (AUTO) 0 % (0-10); EOSINOPHILS % (AUTO) 0 % (0-10); HEMATOCRIT 30 % (35-52); HEMOGLOBIN 9.6 G/DL (11.5-16.0); LYMPHOCYTES # (AUTO) 0.4 X 10^3 (1.0-4.0); LYMPHOCYTES % (AUTO) 5 % (12-44); MEAN CORPUSCULAR HEMOGLOBIN 26 PG (25-34); MEAN CORPUSCULAR HGB CONC 32 G/DL (32-36); MEAN CORPUSCULAR VOLUME 81 FL (80-99); MEAN PLATELET VOLUME 9.3 FL (7.4-10.4); MONOCYTES # (AUTO) 0.6 X 10^3 (0.0-1.0); MONOCYTES % (AUTO) 8 % (0-12); NEUTROPHILS # (AUTO) 6.9 X 10^3 (1.8-7.8); NEUTROPHILS % (AUTO) 87 % (42-75); PLATELET COUNT 338 10^3/uL (130-400)
[2019-05-20 14:15] LABS: BASOPHILS % (AUTO) 1 % (0-10); EOSINOPHILS # (AUTO) 0.1 10^3/uL (0.0-0.3); EOSINOPHILS % (AUTO) 3 % (0-10); HEMATOCRIT 29 % (35-52); HEMOGLOBIN 9.2 G/DL (11.5-16.0); LYMPHOCYTES # (AUTO) 0.6 X 10^3 (1.0-4.0); LYMPHOCYTES % (AUTO) 41 % (12-44); MEAN CORPUSCULAR HEMOGLOBIN 26 PG (25-34); MEAN CORPUSCULAR HGB CONC 32 G/DL (32-36); MEAN CORPUSCULAR VOLUME 83 FL (80-99); MEAN PLATELET VOLUME 9.6 FL (7.4-10.4); MONOCYTES # (AUTO) 0.3 X 10^3 (0.0-1.0); MONOCYTES % (AUTO) 18 % (0-12); NEUTROPHILS # (AUTO) 0.6 X 10^3 (1.8-7.8); NEUTROPHILS % (AUTO) 37 % (42-75); PLATELET COUNT 313 10^3/uL (130-400); WHITE BLOOD COUNT 1.5 10^3/uL (4.3-11.0)
[2019-05-20 14:33] LABS: ALANINE AMINOTRANSFERASE 13 U/L (0-55); ALKALINE PHOSPHATASE 56 U/L (40-136); BILIRUBIN,TOTAL 0.5 MG/DL (0.1-1.0); BUN/CREATININE RATIO 9; CALCIUM 8.4 MG/DL (8.5-10.1); CARBON DIOXIDE 22 MMOL/L (21-32); CHLORIDE 99 MMOL/L (98-107); CREATININE SERUM 0.75 MG/DL (0.60-1.30); GFR ESTIMATED > 60; GLUCOSE 76 MG/DL (70-105); POTASSIUM 3.5 MMOL/L (3.6-5.0); SODIUM 132 MMOL/L (135-145); TOTAL PROTEIN 5.6 GM/DL (6.4-8.2)
[2019-05-27 15:38] LABS: BASOPHILS % (AUTO) 0 % (0-10); EOSINOPHILS % (AUTO) 0 % (0-10); HEMATOCRIT 28 % (35-52); HEMOGLOBIN 8.8 G/DL (11.5-16.0); LYMPHOCYTES % (AUTO) 13 % (12-44); MEAN CORPUSCULAR HEMOGLOBIN 26 PG (25-34); MEAN CORPUSCULAR HGB CONC 31 G/DL (32-36); MEAN CORPUSCULAR VOLUME 82 FL (80-99); MEAN PLATELET VOLUME 9.3 FL (7.4-10.4); MONOCYTES # (AUTO) 0.5 X 10^3 (0.0-1.0); MONOCYTES % (AUTO) 6 % (0-12); NEUTROPHILS # (AUTO) 5.7 X 10^3 (1.8-7.8); NEUTROPHILS % (AUTO) 80 % (42-75); PLATELET COUNT 330 10^3/uL (130-400); RED CELL DISTRIBUTION WIDTH 20.2 % (10.0-14.5); WHITE BLOOD COUNT 7.2 10^3/uL (4.3-11.0)
[2019-05-27 15:57] LABS: ALANINE AMINOTRANSFERASE 10 U/L (0-55); ALBUMIN 2.4 GM/DL (3.2-4.5); ALKALINE PHOSPHATASE 68 U/L (40-136); BILIRUBIN,TOTAL 0.3 MG/DL (0.1-1.0); BUN/CREATININE RATIO 6; CALCIUM 7.8 MG/DL (8.5-10.1); CARBON DIOXIDE 22 MMOL/L (21-32); CHLORIDE 104 MMOL/L (98-107); CREATININE SERUM 0.65 MG/DL (0.60-1.30); GFR ESTIMATED > 60; GLUCOSE 99 MG/DL (70-105); POTASSIUM 3.3 MMOL/L (3.6-5.0); SODIUM 133 MMOL/L (135-145); TOTAL PROTEIN 4.7 GM/DL (6.4-8.2)
[2019-06-03 09:29] LABS: BASOPHILS % (AUTO) 0 % (0-10); EOSINOPHILS % (AUTO) 0 % (0-10); HEMATOCRIT 27 % (35-52); HEMOGLOBIN 8.6 G/DL (11.5-16.0); LYMPHOCYTES # (AUTO) 1.3 X 10^3 (1.0-4.0); LYMPHOCYTES % (AUTO) 12 % (12-44); MEAN CORPUSCULAR HEMOGLOBIN 26 PG (25-34); MEAN CORPUSCULAR HGB CONC 32 G/DL (32-36); MEAN CORPUSCULAR VOLUME 83 FL (80-99); MEAN PLATELET VOLUME 8.8 FL (7.4-10.4); MONOCYTES # (AUTO) 1.2 X 10^3 (0.0-1.0); MONOCYTES % (AUTO) 11 % (0-12); NEUTROPHILS # (AUTO) 7.9 X 10^3 (1.8-7.8); NEUTROPHILS % (AUTO) 76 % (42-75); PLATELET COUNT 420 10^3/uL (130-400); RED CELL DISTRIBUTION WIDTH 21.5 % (10.0-14.5); WHITE BLOOD COUNT 10.3 10^3/uL (4.3-11.0)
[2019-06-03 09:47] LABS: ALANINE AMINOTRANSFERASE 8 U/L (0-55); ALBUMIN 2.5 GM/DL (3.2-4.5); ALKALINE PHOSPHATASE 83 U/L (40-136); BILIRUBIN,TOTAL 0.2 MG/DL (0.1-1.0); BUN/CREATININE RATIO 11; CALCIUM 8.7 MG/DL (8.5-10.1); CARBON DIOXIDE 19 MMOL/L (21-32); CHLORIDE 103 MMOL/L (98-107); GFR ESTIMATED > 60; GLUCOSE 94 MG/DL (70-105); POTASSIUM 3.5 MMOL/L (3.6-5.0); SODIUM 132 MMOL/L (135-145); TOTAL PROTEIN 4.9 GM/DL (6.4-8.2)
[2019-06-10 11:00] LABS: BASOPHILS % (AUTO) 1 % (0-10); EOSINOPHILS % (AUTO) 1 % (0-10); HEMATOCRIT 28 % (35-52); HEMOGLOBIN 8.7 G/DL (11.5-16.0); LYMPHOCYTES # (AUTO) 0.7 X 10^3 (1.0-4.0); LYMPHOCYTES % (AUTO) 35 % (12-44); MEAN CORPUSCULAR HEMOGLOBIN 26 PG (25-34); MEAN CORPUSCULAR HGB CONC 31 G/DL (32-36); MEAN CORPUSCULAR VOLUME 84 FL (80-99); MEAN PLATELET VOLUME 9.4 FL (7.4-10.4); MONOCYTES # (AUTO) 0.3 X 10^3 (0.0-1.0); MONOCYTES % (AUTO) 13 % (0-12); NEUTROPHILS % (AUTO) 51 % (42-75); PLATELET COUNT 411 10^3/uL (130-400); RED CELL DISTRIBUTION WIDTH 22.1 % (10.0-14.5); WHITE BLOOD COUNT 1.9 10^3/uL (4.3-11.0)
[2019-06-10 11:20] LABS: ALANINE AMINOTRANSFERASE 13 U/L (0-55); ALBUMIN 2.7 GM/DL (3.2-4.5); ALKALINE PHOSPHATASE 90 U/L (40-136); BILIRUBIN,TOTAL 0.4 MG/DL (0.1-1.0); BUN/CREATININE RATIO 12; CALCIUM 8.1 MG/DL (8.5-10.1); CARBON DIOXIDE 22 MMOL/L (21-32); CHLORIDE 98 MMOL/L (98-107); CREATININE SERUM 0.68 MG/DL (0.60-1.30); GFR ESTIMATED > 60; GLUCOSE 93 MG/DL (70-105); POTASSIUM 3.2 MMOL/L (3.6-5.0); SODIUM 130 MMOL/L (135-145); TOTAL PROTEIN 5.3 GM/DL (6.4-8.2)
[~2019-06-17 09:08] MED LIST changes: +DEXAMETHASONE IV ONE; +DEXAMETHASONE IV SCH; +DOCETAXEL IV SCH; +FAMOTIDINE 20MG/2ML IV (CANCER CTR) IV SCH; +FULVESTRANT 250 MG/5 ML SYR (CANCER CENTER) IM SCH; +NORMAL SALINE IV SCH; +NS IV 1000 ML (CANCER CTR) 1,000 ML ONE; +NS IV 1000 ML (CANCER CTR) IV SCH; +NS IV 500 ML (CANCER CENTER) 500 ML ONE; +NS IV ONE; +NS IV SCH; +PALONOSETRON HCL IV SCH; +PANTOPRAZOLE IV ONE; +PROMETHAZINE IV ONE; +ZOLEDRONIC ACID (CANCER CTR) 4 MG in NS (IVPB) CANCER CENTER 100 ML IV SCH; +diphenhydrAMINE 25 MG TAB (BENADRYL) CANCER CENTER PO SCH; +diphenhydrAMINE 50 MG/ML INJ (CANCER CENTER) IV PRN
[2019-06-17 09:31] LABS: BASOPHILS % (AUTO) 0 % (0-10); EOSINOPHILS % (AUTO) 0 % (0-10); HEMATOCRIT 30 % (35-52); HEMOGLOBIN 9.5 G/DL (11.5-16.0); LYMPHOCYTES # (AUTO) 1.2 X 10^3 (1.0-4.0); LYMPHOCYTES % (AUTO) 14 % (12-44); MEAN CORPUSCULAR HEMOGLOBIN 27 PG (25-34); MEAN CORPUSCULAR HGB CONC 32 G/DL (32-36); MEAN CORPUSCULAR VOLUME 84 FL (80-99); MEAN PLATELET VOLUME 9.2 FL (7.4-10.4); MONOCYTES # (AUTO) 1.2 X 10^3 (0.0-1.0); MONOCYTES % (AUTO) 14 % (0-12); NEUTROPHILS # (AUTO) 5.8 X 10^3 (1.8-7.8); NEUTROPHILS % (AUTO) 71 % (42-75); PLATELET COUNT 401 10^3/uL (130-400); RED CELL DISTRIBUTION WIDTH 20.9 % (10.0-14.5); WHITE BLOOD COUNT 8.1 10^3/uL (4.3-11.0)
[2019-06-17 09:49] LABS: ALANINE AMINOTRANSFERASE 11 U/L (0-55); ALBUMIN 2.9 GM/DL (3.2-4.5); ALKALINE PHOSPHATASE 73 U/L (40-136); BILIRUBIN,TOTAL 0.2 MG/DL (0.1-1.0); BUN/CREATININE RATIO 14; CALCIUM 8.2 MG/DL (8.5-10.1); CARBON DIOXIDE 21 MMOL/L (21-32); CHLORIDE 100 MMOL/L (98-107); CREATININE SERUM 0.77 MG/DL (0.60-1.30); GFR ESTIMATED > 60; GLUCOSE 116 MG/DL (70-105); POTASSIUM 3.6 MMOL/L (3.6-5.0); SODIUM 132 MMOL/L (135-145); TOTAL PROTEIN 5.1 GM/DL (6.4-8.2)
[2019-06-17] MEDS ORDERED: PALONOSETRON HCL 0.25 MG, DEXAMETHASONE INJECTION 10 MG in NS (IVPB) CANCER CENTER 50 ML IV SCH (11:00)
== END 2019-06-20 | disposition home or self-care (01) ==
LOC: ONC 09:08
PROVIDERS: ATTEND Internal Medicine Hematology & Oncology
DX: Z51.11 Encounter for antineoplastic chemotherapy (principal); C50.111 Malignant neoplasm of central portion of right female breast; C79.51 Secondary malignant neoplasm of bone; C78.6 Secondary malignant neoplasm of retroperitoneum and peritoneum; Z90.11 Acquired absence of right breast and nipple; Z90.79 Acquired absence of other genital organ(s); Z79.899 Other long term (current) drug therapy
CPT/HCPCS: 36591; 70553; 80053; 85025; 86300; 87040; 87324; 87449; 96360; 96361; 96365; 96374; 96375; 96413; 99213

== ENCOUNTER 2019-08-31 09:23 | Outpatient (RCR) | payer MEDICARE, OTHER ==
--- NOTE | 2019-06-21 07:13 | Anesthesia-General Post-Op ---
MAC Significant Intra-Op Events Notes addendum 06-15-19 at 1200 Patient Condition Mental Status/LOC: Same as Preop Cardiovascular: Satisfactory Nausea/Vomiting: Absent Respiratory: Satisfactory Pain: Controlled Complications: Absent Post Op Complications Complications None Follow Up Care/Instructions Patient Instructions None needed. Anesthesiology Discharge Order Discharge Order Patient is doing well, no complaints, stable vital signs, no apparent adverse anesthesia problems. No complications reported per nursing. FADY HANKS CRNA Jun 21, 2019 07:13
[2019-06-24 15:06] LABS: BASOPHILS % (AUTO) 0 % (0-10); EOSINOPHILS % (AUTO) 1 % (0-10); HEMATOCRIT 28 % (35-52); HEMOGLOBIN 8.6 G/DL (11.5-16.0); LYMPHOCYTES # (AUTO) 0.9 X 10^3 (1.0-4.0); LYMPHOCYTES % (AUTO) 18 % (12-44); MEAN CORPUSCULAR HEMOGLOBIN 26 PG (25-34); MEAN CORPUSCULAR HGB CONC 30 G/DL (32-36); MEAN CORPUSCULAR VOLUME 87 FL (80-99); MEAN PLATELET VOLUME 8.8 FL (7.4-10.4); MONOCYTES # (AUTO) 0.3 X 10^3 (0.0-1.0); MONOCYTES % (AUTO) 6 % (0-12); NEUTROPHILS # (AUTO) 3.6 X 10^3 (1.8-7.8); NEUTROPHILS % (AUTO) 75 % (42-75); PLATELET COUNT 298 10^3/uL (130-400); WHITE BLOOD COUNT 4.8 10^3/uL (4.3-11.0)
[2019-06-24 15:21] LABS: BILIRUBIN,URINE NEGATIVE (NEGATIVE); CLARITY,URINE SL CLOUDY; COLOR,URINE YELLOW; GLUCOSE, URINE (UA) NEGATIVE (NEGATIVE); KETONES,URINE TRACE (NEGATIVE); LEUKOCYTE ESTERASE ,URINE TRACE (NEGATIVE); NITRITE,URINE NEGATIVE (NEGATIVE); PROTEIN,URINE 2+ (NEGATIVE)
[2019-06-24 15:28] LABS: ALBUMIN 2.8 GM/DL (3.2-4.5); CHLORIDE 101 MMOL/L (98-107); SODIUM 133 MMOL/L (135-145)
[2019-06-24 15:29] LABS: CALCIUM 8.6 MG/DL (8.5-10.1)
[2019-06-24 15:31] LABS: GLUCOSE 100 MG/DL (70-105); TOTAL PROTEIN 5.3 GM/DL (6.4-8.2)
[2019-06-24 15:32] LABS: CARBON DIOXIDE 23 MMOL/L (21-32)
[2019-06-24 15:33] LABS: BILIRUBIN,TOTAL 0.2 MG/DL (0.1-1.0); RBC,URINE 50-100 /HPF
[2019-06-24 15:34] LABS: ALKALINE PHOSPHATASE 80 U/L (40-136); BACTERIA,URINE TRACE /HPF; CALCIUM OXALATE CRYSTALS,UR MODERATE /LPF; CREATININE SERUM 0.66 MG/DL (0.60-1.30); GFR ESTIMATED > 60; SQUAMOUS EPITHELIAL CELL,UR RARE /HPF
[2019-06-24 15:35] LABS: BUN/CREATININE RATIO 12
[2019-06-24 15:37] LABS: ALANINE AMINOTRANSFERASE 13 U/L (0-55)
[2019-07-01 11:06] LABS: BASOPHILS % (AUTO) 0 % (0-10); EOSINOPHILS # (AUTO) 0.1 10^3/uL (0.0-0.3); EOSINOPHILS % (AUTO) 2 % (0-10); HEMATOCRIT 25 % (35-52); HEMOGLOBIN 7.5 G/DL (11.5-16.0); LYMPHOCYTES % (AUTO) 27 % (12-44); MEAN CORPUSCULAR HEMOGLOBIN 27 PG (25-34); MEAN CORPUSCULAR HGB CONC 30 G/DL (32-36); MEAN CORPUSCULAR VOLUME 90 FL (80-99); MEAN PLATELET VOLUME 9.2 FL (7.4-10.4); MONOCYTES # (AUTO) 0.3 X 10^3 (0.0-1.0); MONOCYTES % (AUTO) 8 % (0-12); NEUTROPHILS # (AUTO) 2.2 X 10^3 (1.8-7.8); NEUTROPHILS % (AUTO) 63 % (42-75); PLATELET COUNT 135 10^3/uL (130-400); RED CELL DISTRIBUTION WIDTH 21.1 % (10.0-14.5); WHITE BLOOD COUNT 3.6 10^3/uL (4.3-11.0)
[2019-07-01 11:20] LABS: ALANINE AMINOTRANSFERASE 12 U/L (0-55); ALBUMIN 2.7 GM/DL (3.2-4.5); ALKALINE PHOSPHATASE 77 U/L (40-136); BILIRUBIN,TOTAL 0.2 MG/DL (0.1-1.0); BUN/CREATININE RATIO 13; CALCIUM 8.4 MG/DL (8.5-10.1); CARBON DIOXIDE 25 MMOL/L (21-32); CHLORIDE 104 MMOL/L (98-107); CREATININE SERUM 0.68 MG/DL (0.60-1.30); GFR ESTIMATED > 60; GLUCOSE 116 MG/DL (70-105); POTASSIUM 3.8 MMOL/L (3.6-5.0); SODIUM 136 MMOL/L (135-145); TOTAL PROTEIN 5.4 GM/DL (6.4-8.2)
[2019-07-08 11:27] LABS: BASOPHILS % (AUTO) 0 % (0-10); EOSINOPHILS # (AUTO) 0.1 10^3/uL (0.0-0.3); EOSINOPHILS % (AUTO) 4 % (0-10); HEMATOCRIT 25 % (35-52); HEMOGLOBIN 7.4 G/DL (11.5-16.0); LYMPHOCYTES # (AUTO) 0.9 X 10^3 (1.0-4.0); LYMPHOCYTES % (AUTO) 35 % (12-44); MEAN CORPUSCULAR HEMOGLOBIN 28 PG (25-34); MEAN CORPUSCULAR HGB CONC 30 G/DL (32-36); MEAN CORPUSCULAR VOLUME 95 FL (80-99); MONOCYTES # (AUTO) 0.5 X 10^3 (0.0-1.0); MONOCYTES % (AUTO) 21 % (0-12); NEUTROPHILS # (AUTO) 1.1 X 10^3 (1.8-7.8); NEUTROPHILS % (AUTO) 41 % (42-75); PLATELET COUNT 257 10^3/uL (130-400); RED CELL DISTRIBUTION WIDTH 24.5 % (10.0-14.5); WHITE BLOOD COUNT 2.6 10^3/uL (4.3-11.0)
[2019-07-08 11:47] LABS: ALANINE AMINOTRANSFERASE 11 U/L (0-55); ALBUMIN 2.9 GM/DL (3.2-4.5); ALKALINE PHOSPHATASE 64 U/L (40-136); BILIRUBIN,TOTAL 0.3 MG/DL (0.1-1.0); BUN/CREATININE RATIO 13; CALCIUM 8.6 MG/DL (8.5-10.1); CARBON DIOXIDE 22 MMOL/L (21-32); CHLORIDE 105 MMOL/L (98-107); CREATININE SERUM 0.85 MG/DL (0.60-1.30); GFR ESTIMATED > 60; GLUCOSE 116 MG/DL (70-105); POTASSIUM 4.2 MMOL/L (3.6-5.0); SODIUM 135 MMOL/L (135-145); TOTAL PROTEIN 5.5 GM/DL (6.4-8.2)
[2019-07-13 09:04] LABS: BASOPHILS % (AUTO) 0 % (0-10); EOSINOPHILS % (AUTO) 0 % (0-10); HEMATOCRIT 26 % (35-52); HEMOGLOBIN 7.7 G/DL (11.5-16.0); LYMPHOCYTES # (AUTO) 1.5 X 10^3 (1.0-4.0); LYMPHOCYTES % (AUTO) 26 % (12-44); MEAN CORPUSCULAR HEMOGLOBIN 28 PG (25-34); MEAN CORPUSCULAR HGB CONC 30 G/DL (32-36); MEAN CORPUSCULAR VOLUME 95 FL (80-99); MEAN PLATELET VOLUME 8.6 FL (7.4-10.4); MONOCYTES # (AUTO) 0.6 X 10^3 (0.0-1.0); MONOCYTES % (AUTO) 12 % (0-12); NEUTROPHILS # (AUTO) 3.5 X 10^3 (1.8-7.8); NEUTROPHILS % (AUTO) 62 % (42-75); PLATELET COUNT 409 10^3/uL (130-400); RED CELL DISTRIBUTION WIDTH 23.7 % (10.0-14.5); WHITE BLOOD COUNT 5.6 10^3/uL (4.3-11.0)
[2019-07-13 09:21] LABS: ALANINE AMINOTRANSFERASE 6 U/L (0-55); ALBUMIN 3.2 GM/DL (3.2-4.5); ALKALINE PHOSPHATASE 68 U/L (40-136); BILIRUBIN,TOTAL 0.2 MG/DL (0.1-1.0); BUN/CREATININE RATIO 18; CALCIUM 8.8 MG/DL (8.5-10.1); CARBON DIOXIDE 20 MMOL/L (21-32); CHLORIDE 102 MMOL/L (98-107); CREATININE SERUM 0.74 MG/DL (0.60-1.30); GFR ESTIMATED > 60; GLUCOSE 116 MG/DL (70-105); POTASSIUM 3.6 MMOL/L (3.6-5.0); SODIUM 133 MMOL/L (135-145); TOTAL PROTEIN 5.9 GM/DL (6.4-8.2)
[2019-07-20 09:22] LABS: BASOPHILS % (AUTO) 0 % (0-10); EOSINOPHILS % (AUTO) 0 % (0-10); HEMATOCRIT 27 % (35-52); HEMOGLOBIN 8.5 G/DL (11.5-16.0); LYMPHOCYTES # (AUTO) 2.1 X 10^3 (1.0-4.0); LYMPHOCYTES % (AUTO) 23 % (12-44); MEAN CORPUSCULAR HEMOGLOBIN 30 PG (25-34); MEAN CORPUSCULAR HGB CONC 31 G/DL (32-36); MEAN CORPUSCULAR VOLUME 94 FL (80-99); MEAN PLATELET VOLUME 8.9 FL (7.4-10.4); MONOCYTES % (AUTO) 11 % (0-12); NEUTROPHILS # (AUTO) 6.2 X 10^3 (1.8-7.8); NEUTROPHILS % (AUTO) 66 % (42-75); PLATELET COUNT 401 10^3/uL (130-400); RED CELL DISTRIBUTION WIDTH 22.1 % (10.0-14.5); WHITE BLOOD COUNT 9.3 10^3/uL (4.3-11.0)
[2019-07-20 09:44] LABS: BUN/CREATININE RATIO 28; CALCIUM 8.4 MG/DL (8.5-10.1); CARBON DIOXIDE 20 MMOL/L (21-32); CHLORIDE 101 MMOL/L (98-107); GFR ESTIMATED > 60; GLUCOSE 85 MG/DL (70-105); POTASSIUM 3.3 MMOL/L (3.6-5.0); SODIUM 132 MMOL/L (135-145)
[2019-07-27 09:14] LABS: BASOPHILS % (AUTO) 0 % (0-10); EOSINOPHILS % (AUTO) 0 % (0-10); HEMATOCRIT 27 % (35-52); HEMOGLOBIN 8.2 G/DL (11.5-16.0); LYMPHOCYTES # (AUTO) 0.7 X 10^3 (1.0-4.0); LYMPHOCYTES % (AUTO) 8 % (12-44); MEAN CORPUSCULAR HEMOGLOBIN 30 PG (25-34); MEAN CORPUSCULAR HGB CONC 31 G/DL (32-36); MEAN CORPUSCULAR VOLUME 96 FL (80-99); MEAN PLATELET VOLUME 8.4 FL (7.4-10.4); MONOCYTES # (AUTO) 0.5 X 10^3 (0.0-1.0); MONOCYTES % (AUTO) 5 % (0-12); NEUTROPHILS # (AUTO) 8.1 X 10^3 (1.8-7.8); NEUTROPHILS % (AUTO) 87 % (42-75); PLATELET COUNT 352 10^3/uL (130-400); RED CELL DISTRIBUTION WIDTH 22.5 % (10.0-14.5); WHITE BLOOD COUNT 9.3 10^3/uL (4.3-11.0)
[2019-07-27 09:30] LABS: BUN/CREATININE RATIO 31; CALCIUM 8.4 MG/DL (8.5-10.1); CARBON DIOXIDE 19 MMOL/L (21-32); CHLORIDE 102 MMOL/L (98-107); CREATININE SERUM 0.78 MG/DL (0.60-1.30); GFR ESTIMATED > 60; GLUCOSE 140 MG/DL (70-105); POTASSIUM 3.8 MMOL/L (3.6-5.0); SODIUM 132 MMOL/L (135-145)
[2019-08-03 15:14] LABS: BASOPHILS % (AUTO) 0 % (0-10); EOSINOPHILS # (AUTO) 0.1 10^3/uL (0.0-0.3); EOSINOPHILS % (AUTO) 1 % (0-10); HEMATOCRIT 28 % (35-52); HEMOGLOBIN 8.3 G/DL (11.5-16.0); LYMPHOCYTES # (AUTO) 1.5 X 10^3 (1.0-4.0); LYMPHOCYTES % (AUTO) 23 % (12-44); MEAN CORPUSCULAR HEMOGLOBIN 30 PG (25-34); MEAN CORPUSCULAR HGB CONC 30 G/DL (32-36); MEAN CORPUSCULAR VOLUME 100 FL (80-99); MEAN PLATELET VOLUME 8.4 FL (7.4-10.4); MONOCYTES # (AUTO) 0.5 X 10^3 (0.0-1.0); MONOCYTES % (AUTO) 8 % (0-12); NEUTROPHILS # (AUTO) 4.6 X 10^3 (1.8-7.8); NEUTROPHILS % (AUTO) 69 % (42-75); PLATELET COUNT 318 10^3/uL (130-400); RED CELL DISTRIBUTION WIDTH 22.1 % (10.0-14.5); WHITE BLOOD COUNT 6.7 10^3/uL (4.3-11.0)
[2019-08-03 15:38] LABS: BUN/CREATININE RATIO 18; CALCIUM 8.6 MG/DL (8.5-10.1); CARBON DIOXIDE 28 MMOL/L (21-32); CHLORIDE 101 MMOL/L (98-107); CREATININE SERUM 0.79 MG/DL (0.60-1.30); GFR ESTIMATED > 60; GLUCOSE 81 MG/DL (70-105); POTASSIUM 4.2 MMOL/L (3.6-5.0); SODIUM 136 MMOL/L (135-145)
[2019-08-10 09:12] LABS: BASOPHILS % (AUTO) 0 % (0-10); EOSINOPHILS % (AUTO) 0 % (0-10); HEMATOCRIT 27 % (35-52); HEMOGLOBIN 8.2 G/DL (11.5-16.0); LYMPHOCYTES # (AUTO) 1.2 X 10^3 (1.0-4.0); LYMPHOCYTES % (AUTO) 15 % (12-44); MEAN CORPUSCULAR HEMOGLOBIN 30 PG (25-34); MEAN CORPUSCULAR HGB CONC 30 G/DL (32-36); MEAN CORPUSCULAR VOLUME 100 FL (80-99); MEAN PLATELET VOLUME 8.8 FL (7.4-10.4); MONOCYTES # (AUTO) 0.8 X 10^3 (0.0-1.0); MONOCYTES % (AUTO) 10 % (0-12); NEUTROPHILS # (AUTO) 6.3 X 10^3 (1.8-7.8); NEUTROPHILS % (AUTO) 76 % (42-75); PLATELET COUNT 320 10^3/uL (130-400); RED CELL DISTRIBUTION WIDTH 20.7 % (10.0-14.5); WHITE BLOOD COUNT 8.2 10^3/uL (4.3-11.0)
[2019-08-10 09:29] LABS: ALANINE AMINOTRANSFERASE 13 U/L (0-55); ALBUMIN 3.3 GM/DL (3.2-4.5); ALKALINE PHOSPHATASE 81 U/L (40-136); BILIRUBIN,TOTAL 0.2 MG/DL (0.1-1.0); BUN/CREATININE RATIO 29; CALCIUM 8.4 MG/DL (8.5-10.1); CARBON DIOXIDE 21 MMOL/L (21-32); CHLORIDE 107 MMOL/L (98-107); CREATININE SERUM 0.78 MG/DL (0.60-1.30); GFR ESTIMATED > 60; GLUCOSE 117 MG/DL (70-105); POTASSIUM 3.7 MMOL/L (3.6-5.0); SODIUM 138 MMOL/L (135-145); TOTAL PROTEIN 5.8 GM/DL (6.4-8.2)
[2019-08-17 09:47] LABS: BASOPHILS % (AUTO) 0 % (0-10); EOSINOPHILS % (AUTO) 0 % (0-10); HEMATOCRIT 32 % (35-52); HEMOGLOBIN 10.3 G/DL (11.5-16.0); LYMPHOCYTES # (AUTO) 0.5 X 10^3 (1.0-4.0); LYMPHOCYTES % (AUTO) 5 % (12-44); MEAN CORPUSCULAR HEMOGLOBIN 31 PG (25-34); MEAN CORPUSCULAR HGB CONC 32 G/DL (32-36); MEAN CORPUSCULAR VOLUME 94 FL (80-99); MEAN PLATELET VOLUME 8.9 FL (7.4-10.4); MONOCYTES # (AUTO) 0.4 X 10^3 (0.0-1.0); MONOCYTES % (AUTO) 4 % (0-12); NEUTROPHILS # (AUTO) 8.8 X 10^3 (1.8-7.8); NEUTROPHILS % (AUTO) 90 % (42-75); PLATELET COUNT 354 10^3/uL (130-400); WHITE BLOOD COUNT 9.8 10^3/uL (4.3-11.0)
[2019-08-17 10:03] LABS: BUN/CREATININE RATIO 30; CALCIUM 8.8 MG/DL (8.5-10.1); CARBON DIOXIDE 22 MMOL/L (21-32); CHLORIDE 99 MMOL/L (98-107); GFR ESTIMATED > 60; GLUCOSE 134 MG/DL (70-105); POTASSIUM 3.9 MMOL/L (3.6-5.0); SODIUM 133 MMOL/L (135-145)
[2019-08-24 13:57] LABS: BASOPHILS % (AUTO) 0 % (0-10); EOSINOPHILS % (AUTO) 1 % (0-10); HEMATOCRIT 33 % (35-52); HEMOGLOBIN 10.4 G/DL (11.5-16.0); LYMPHOCYTES % (AUTO) 25 % (12-44); MEAN CORPUSCULAR HEMOGLOBIN 31 PG (25-34); MEAN CORPUSCULAR HGB CONC 32 G/DL (32-36); MEAN CORPUSCULAR VOLUME 97 FL (80-99); MEAN PLATELET VOLUME 9.4 FL (7.4-10.4); MONOCYTES # (AUTO) 0.3 X 10^3 (0.0-1.0); MONOCYTES % (AUTO) 7 % (0-12); NEUTROPHILS # (AUTO) 2.8 X 10^3 (1.8-7.8); NEUTROPHILS % (AUTO) 68 % (42-75); PLATELET COUNT 229 10^3/uL (130-400); RED CELL DISTRIBUTION WIDTH 18.7 % (10.0-14.5); WHITE BLOOD COUNT 4.1 10^3/uL (4.3-11.0)
[2019-08-24 14:18] LABS: BUN/CREATININE RATIO 20; CALCIUM 9.6 MG/DL (8.5-10.1); CARBON DIOXIDE 23 MMOL/L (21-32); CHLORIDE 99 MMOL/L (98-107); CREATININE SERUM 0.74 MG/DL (0.60-1.30); GFR ESTIMATED > 60; GLUCOSE 114 MG/DL (70-105); POTASSIUM 4.1 MMOL/L (3.6-5.0); SODIUM 133 MMOL/L (135-145)
[~2019-08-31] VITALS: Ht 165.1 cm; Wt 72.1 kg
[~2019-08-31 09:23] MED LIST changes: -DEXAMETHASONE IV ONE; -DEXAMETHASONE IV SCH; -DOCETAXEL IV SCH; +FOSAPREPITANT (CANCER CENTER) 150 MG in NS (IVPB) CANCER CENTER ONLY 150 ML IV ONE; +FOSAPREPITANT (CANCER CENTER) 150 MG in NS (IVPB) CANCER CENTER ONLY 150 ML IV SCH; -FULVESTRANT 250 MG/5 ML SYR (CANCER CENTER) IM SCH; +NF-ZOL12.5 PO; -NS IV 1000 ML (CANCER CTR) 1,000 ML ONE; -NS IV 500 ML (CANCER CENTER) 500 ML ONE; +PACLITAXEL IV SCH; +PALONOSETRON HCL 0.25 MG, DEXAMETHASONE INJECTION 10 MG in NS (IVPB) CANCER CENTER 50 ML IV SCH; -PALONOSETRON HCL IV SCH; -PANTOPRAZOLE IV ONE; -ZOLP12.546 PO; -diphenhydrAMINE 50 MG/ML INJ (CANCER CENTER) IV PRN
[2019-08-31 09:39] LABS: BASOPHILS % (AUTO) 0 % (0-10); EOSINOPHILS % (AUTO) 0 % (0-10); HEMATOCRIT 28 % (35-52); HEMOGLOBIN 8.9 G/DL (11.5-16.0); LYMPHOCYTES # (AUTO) 0.4 X 10^3 (1.0-4.0); LYMPHOCYTES % (AUTO) 10 % (12-44); MEAN CORPUSCULAR HEMOGLOBIN 30 PG (25-34); MEAN CORPUSCULAR HGB CONC 31 G/DL (32-36); MEAN CORPUSCULAR VOLUME 97 FL (80-99); MEAN PLATELET VOLUME 8.8 FL (7.4-10.4); MONOCYTES # (AUTO) 0.2 X 10^3 (0.0-1.0); MONOCYTES % (AUTO) 5 % (0-12); NEUTROPHILS # (AUTO) 3.8 X 10^3 (1.8-7.8); NEUTROPHILS % (AUTO) 85 % (42-75); PLATELET COUNT 214 10^3/uL (130-400); RED CELL DISTRIBUTION WIDTH 18.2 % (10.0-14.5); WHITE BLOOD COUNT 4.5 10^3/uL (4.3-11.0)
[2019-08-31 10:03] LABS: ALANINE AMINOTRANSFERASE 12 U/L (0-55); ALBUMIN 3.4 GM/DL (3.2-4.5); ALKALINE PHOSPHATASE 83 U/L (40-136); BILIRUBIN,TOTAL 0.2 MG/DL (0.1-1.0); BUN/CREATININE RATIO 18; CALCIUM 9.2 MG/DL (8.5-10.1); CARBON DIOXIDE 21 MMOL/L (21-32); CHLORIDE 104 MMOL/L (98-107); CREATININE SERUM 0.78 MG/DL (0.60-1.30); GFR ESTIMATED > 60; GLUCOSE 119 MG/DL (70-105); SODIUM 136 MMOL/L (135-145); TOTAL PROTEIN 6.1 GM/DL (6.4-8.2)
[2019-09-22] MEDS ORDERED: OMEP40CA27 PO (11:34)
[2019-09-22] MEDS ORDERED: SUCR1TAB PO (11:34)
[2019-09-22] MEDS ORDERED: DEXA4TAB PO ×2 (11:34)
[2019-09-22] MEDS ORDERED: GABA300S2 PO (11:34)
[2019-09-22] MEDS ORDERED: FLUO40CA PO (11:34)
[2019-09-22] MEDS ORDERED: GABA300C PO (11:40)
[2019-09-22] MEDS ORDERED: FLUT16SP22 NSEACH (11:56)
[2019-09-22] MEDS ORDERED: IBUP-2473 PO (11:56)
[2019-09-22] MEDS ORDERED: LIDO5JEL10 UR (11:56)
[2019-09-22] MEDS ORDERED: ACET-2267 PO (11:56)
[2019-09-22] MEDS ORDERED: PYRI60TA (11:56)
[2019-09-22] MEDS ORDERED: PSEU-137 PO (11:56)
[2019-09-22] MEDS ORDERED: MAGIC MOUTHWASH (11:56)
[2019-09-22] MEDS ORDERED: LEVO25TA5 PO (12:09)
[2019-09-22] MEDS ORDERED: OXYC-188 PO (12:09)
[2019-09-22] MEDS ORDERED: NF-ZOL12.5 PO (12:09)
[2019-09-24] MEDS ORDERED: AMOX500C2 PO (12:10)
== END 2019-09-22 | disposition home or self-care (01) ==
LOC: ONC 09:23
PROVIDERS: ATTEND Internal Medicine Hematology & Oncology
DX: C50.911 Malignant neoplasm of unspecified site of right female breast (principal); C79.51 Secondary malignant neoplasm of bone; C78.6 Secondary malignant neoplasm of retroperitoneum and peritoneum; D63.0 Anemia in neoplastic disease; R18.8 Other ascites; Z90.11 Acquired absence of right breast and nipple; Z90.79 Acquired absence of other genital organ(s); Z79.899 Other long term (current) drug therapy
CPT/HCPCS: 36591; 80048; 80053; 81000; 85025; 86300; 96367; 96375; 96413; 96415; 96417; 99213

== ENCOUNTER 2019-09-21 18:05 | Inpatient (IN) | payer MEDICARE, OTHER ==
[~2019-09-21] VITALS: Ht 165.5 cm; Wt 73.2 kg
[2019-09-21] VITALS (7 sets, daily range): BP systolic 119–147; BP diastolic 68–95
[~2019-09-21 18:05] MED LIST changes: -FAMOTIDINE 20MG/2ML IV (CANCER CTR) IV SCH; -FOSAPREPITANT (CANCER CENTER) 150 MG in NS (IVPB) CANCER CENTER ONLY 150 ML IV ONE; -FOSAPREPITANT (CANCER CENTER) 150 MG in NS (IVPB) CANCER CENTER ONLY 150 ML IV SCH; -NORMAL SALINE IV SCH; -NS IV 1000 ML (CANCER CTR) IV SCH; -NS IV ONE; -NS IV SCH; -PACLITAXEL IV SCH; -PALONOSETRON HCL 0.25 MG, DEXAMETHASONE INJECTION 10 MG in NS (IVPB) CANCER CENTER 50 ML IV SCH; -PROMETHAZINE IV ONE; -ZOLEDRONIC ACID (CANCER CTR) 4 MG in NS (IVPB) CANCER CENTER 100 ML IV SCH; -diphenhydrAMINE 25 MG TAB (BENADRYL) CANCER CENTER PO SCH
[2019-09-21] MEDS ORDERED: NS IV 1000 ML 1,000 ML IV SCH (18:38)
[2019-09-21] MEDS ORDERED: NS IV 500 ML 500 ML IV ONE (18:38)
[2019-09-21] MEDS ORDERED: PHARMACY TO DOSE IV ONE (18:45)
[2019-09-21] MEDS ORDERED: CEFEPIME INJECTION 1,000 MG in WATER (STERILE) FOR INJECTION 10 ML IV ONE (18:45)
--- NOTE | 2019-09-21 18:47 | ED General ---
General Chief Complaint: General Problems/Pain Stated Complaint: FEVER Source of Information: Patient Exam Limitations: No Limitations History of Present Illness Date Seen by Provider: Sep 21, 2019 Time Seen by Provider: 18:25 Initial Comments Patient presents ER by private conveyance with chief complaint of fever and generalized achiness and pain. She's had fever the past 2-3 days. Today was a MAXIMUM TEMPERATURE of 101F. She has a history of chemotherapy round #6 or 7 last week followed by Dr. Gregory for right metastatic breast cancer. Last week was the first time she had the benefit of both combination chemotherapies. Prior to that she was being treated for one week with ciprofloxacin for UTI. She says she felt good for about a day after she finished her last dose on Friday and then started feeling poorly again. She did take ibuprofen and Percocet for her fever and feels that her body aches and chills are gone now. She says her pain is under control with the oxycodone however it only last about 4 hours and she has only written for every 8 hours. She denies cough chills nausea vomiting ab dominal pain dysuria diarrhea constipation. She had a bowel movement earlier today afternoon with no problems. She has a stent in her left ureter and was told by the urologist when he replaced it did not feel her left kidney was viable anymore. She has a right sided peritoneal catheter or draining her recurrent abdominal ascites. She says her drained 2 days ago. Allergies and Home Medications Allergies Coded Allergies: morphine (Verified Allergy, Intermediate, Itching, 04/18/19) aspirin (Verified Allergy, Unknown, 01/13/18) prochlorperazine (Verified Allergy, Unknown, 06/11/19) Tolerates Phenergan well Home Medications Acetaminophen 500 Mg Tablet, 500 MG PO Q6H PRN for PAIN-MILD (1-4), (Reported) Dextroamphetamine/Amphetamine 30 Mg Cap.er.24h, 30 MG PO DAILY, (Reported) Diphenhydramine HCl 25 Mg Capsule, 50 MG PO Q4H PRN for ALLERGY SYMPTOMS, (Reported) Fluoxetine HCl 40 Mg Capsule, 40 MG PO DAILY Prescribed by: ASYA STEPHENS on 05/05/19 1493 Gabapentin 300 Mg Capsule, 300 MG PO HS, (Reported) Ibuprofen 200 Mg Tablet, 400 MG PO Q6H PRN for PAIN-MILD (1-4), (Reported) Levofloxacin 750 Mg Tablet, 750 MG PO DAILY Prescribed by: CADEN HARDIN on 05/22/191808 Levothyroxine Sodium 25 Mcg Tablet, 25 MCG PO DAILY, (Reported) Omeprazole 40 Mg Capsule.dr, 40 MG PO HS, (Reported) Oxycodone HCl/Acetaminophen 1 Each Tablet, 1 TAB PO HS PRN for PAIN-MODERATE (5- 7), (Reported) Promethazine HCl 25 Mg Tablet, 25 MG PO Q6H PRN for NAUSEA/VOMITING Prescribed by: ASYA STEPHENS on 05/05/191805 Sucralfate 1 Gm Tablet, 1 GM PO ACHS Prescribed by: MITCH CROCKETT on 05/06/19 105 Zolpidem Tartrate 12.5 Mg Tab.mphase, 12.5 MG PO HS, (Reported) Patient Home Medication List Home Medication List Reviewed: Yes Review of Systems Review of Systems Constitutional: chills, fever, malaise, weakness EENTM: No ear discharge, No ear pain Respiratory: No cough, No short of breath Cardiovascular: No chest pain, No edema, No Hx of Intervention Gastrointestinal: No abdominal pain, No constipation, No diarrhea; nausea, vomiting Genitourinary: No discharge, No dysuria, No frequency, No hematuria, No hesitancy Musculoskeletal: see HPI, back pain (chronic low back pain with right sided sciatica), joint pain (left shoulder where she's had rotator cuff surgery) Skin: No pruritus, No rash Psychiatric/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: Denies Headache, Denies Numbness All Other Systems Reviewed Negative Unless Noted: Yes Past Yeuyocv-Ubiarb-Yfuqcn Hx Patient Social History Alcohol Use: Denies Use Recreational Drug Use: No Smoking Status: Never a Smoker 2nd Hand Smoke Exposure: No Recent Foreign Travel: No Contact w/Someone Who Travel: No Recent Hopitalizations: No Immunizations Up To Date Tetanus Booster (TDap): Unknown PED Vaccines UTD: Yes Seasonal Allergies Seasonal Allergies: No Past Medical History Surgeries: Yes (LUMPECTOMY AND MASECTOMY WITH RECONSTRUCTION ON RIGHT) Breast, Section, 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 Respiratory: Yes Asthma Cardiac: Yes Hypertension 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: No 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 Genitourinary: Yes (possible left ureteral obstruction) Gastrointestinal: Yes Gastroesophageal Reflux, Gall Bladder Disease Musculoskeletal: Yes (metastases to bone) Endocrine: Yes Hypothyroidsim HEENT: No Cancer: Yes (RECENT METS DIAGNOSIS) Bone, Breast Did You Recieve Any Treatments: Yes What Type of Treatment Did You: Chemotherapy Psychosocial: Yes ADD/ADHD, Sleep Difficulties, Depression Integumentary: No Blood Disorders: No Family Medical History No Pertinent Family Hx Physical Exam-Suspected Sepsis Physical Exam Vital Signs Vital Signs - First Documented 09/21/19 18:28 Temp 36.9 Pulse 89 Resp 20 B/P (MAP) 147/95 (112) Pulse Ox 95 Capillary Refill : Height, Weight, BMI Height: '" Weight: lbs. oz. kg; 25.81 BMI Method: General Appearance: Anxious, Chronically ill, Moderate Distress Eyes: Bilateral Eye Normal Inspection, Bilateral Eye PERRL, Bilateral Eye EOMI HEENT: PERRL/EOMI, TMs Normal, Pharynx Normal, Moist Mucous Membranes Neck: Full Range of Motion, Normal Inspection, Non Tender, Supple Respiratory: Chest Non Tender, Lungs Clear, Normal Breath Sounds, No Accessory Muscle Use, No Respiratory Distress Cardiovascular: Regular Rate, Rhythm, No Edema, Normal Peripheral Pulses Gastrointestinal: Normal Bowel Sounds, No Organomegaly, Non Tender, Soft Extremity: Normal Capillary Refill, Normal Inspection, Normal Range of Motion, Non Tender, No Pedal Edema Neurologic/Psychiatric: Alert, Oriented x3, No Motor/Sensory Deficits Skin: normal color, warm/dry, other (soft tissue around the right peritoneal catheter is soft, nonindurated, nonerythematous, nontender. The dressing is clean dry and intact.) Focused Exam Sepsis Stage: Sepsis Possible Source: Genitouriary Lactate Level 09/21/19 19:00: Lactic Acid Level 1.86 Time of Focused Exam: 20:59 Respiratory: Lungs Clear, Normal Breath Sounds, No Accessory Muscle Use, No Respiratory Distress Cardiovascular: Regular Rate, Rhythm, No Edema, Normal Peripheral Pulses Capillary Refill: Less Than 3 Seconds Peripheral Pulses: 2+ Radial Pulses (R), 2+ Radial Pulses (L) Skin: normal color, warm/dry Lactic Acid Level Laboratory Tests Test 09/21/19 19:00 Lactic Acid Level 1.86 MMOL/L (0.50-2.00) Within 3hrs of presentation: Admin fluids, Admin ABX, Blood cultures prior to ABX's, Focus exam, Lactate level Progress/Results/Core Measures Suspected Sepsis SIRS Temperature: Pulse: Respiratory Rate: Laboratory Tests 09/21/19 19:00: White Blood Count 4.9 Blood Pressure / Mean: 09/21/19 19:00: Lactic Acid Level 1.86 Laboratory Tests 09/21/19 19:00: Creatinine 0.79, INR Comment 1.0, Platelet Count 271, Total Bilirubin 0.1 Results/Orders Lab Results Laboratory Tests Test 09/21/19 19:00 09/21/19 20:12 Range/Units White Blood Count 4.9 4.3-11.0 10^3/uL Red Blood Count 2.44 L 4.35-5.85 10^6/uL Hemoglobin 7.2 L 11.5-16.0 G/DL Hematocrit 23 L 35-52 % Mean Corpuscular Volume 95 80-99 FL Mean Corpuscular Hemoglobin 30 25-34 PG Mean Corpuscular Hemoglobin Concent 31 L 32-36 G/DL Red Cell Distribution Width 16.8 H 10.0-14.5 % Platelet Count 271 130-400 10^3/uL Mean Platelet Volume 9.1 7.4-10.4 FL Neutrophils (%) (Auto) 67 42-75 % Lymphocytes (%) (Auto) 18 12-44 % Monocytes (%) (Auto) 14 H 0-12 % Eosinophils (%) (Auto) 1 0-10 % Basophils (%) (Auto) 0 0-10 % Neutrophils # (Auto) 3.3 1.8-7.8 X 10^3 Lymphocytes # (Auto) 0.9 L 1.0-4.0 X 10^3 Monocytes # (Auto) 0.7 0.0-1.0 X 10^3 Eosinophils # (Auto) 0.1 0.0-0.3 10^3/uL Basophils # (Auto) 0.0 0.0-0.1 10^3/uL Prothrombin Time 13.6 12.2-14.7 SEC INR Comment 1.0 0.8-1.4 Activated Partial Thromboplast Time 44 H 24-35 SEC Sodium Level 134 L 135-145 MMOL/L Potassium Level 3.9 3.6-5.0 MMOL/L Chloride Level 100 98-107 MMOL/L Carbon Dioxide Level 23 21-32 MMOL/L Anion Gap 11 5-14 MMOL/L Blood Urea Nitrogen 11 7-18 MG/DL Creatinine 0.79 0.60-1.30 MG/DL Estimat Glomerular Filtration Rate > 60 BUN/Creatinine Ratio 14 Glucose Level 127 H 70-105 MG/DL Lactic Acid Level 1.86 0.50-2.00 MMOL/L Calcium Level 8.6 8.5-10.1 MG/DL Corrected Calcium 9.5 8.5-10.1 MG/DL Total Bilirubin 0.1 0.1-1.0 MG/DL Aspartate Amino Transf (AST/SGOT) 26 5-34 U/L Alanine Aminotransferase (ALT/SGPT) 15 0-55 U/L Alkaline Phosphatase 66 40-136 U/L Total Protein 5.6 L 6.4-8.2 GM/DL Albumin 2.9 L 3.2-4.5 GM/DL Urine Color YELLOW Urine Clarity CLEAR Urine pH 6.0 5-9 Urine Specific [place] 1.010 L 1.016-1.022 Urine Protein NEGATIVE NEGATIVE Urine Glucose (UA) NEGATIVE NEGATIVE Urine Ketones NEGATIVE NEGATIVE Urine Nitrite NEGATIVE NEGATIVE Urine Bilirubin NEGATIVE NEGATIVE Urine Urobilinogen 0.2 < = 1.0 MG/DL Urine Leukocyte Esterase 1+ H NEGATIVE Urine RBC (Auto) NEGATIVE NEGATIVE Urine RBC NONE /HPF Urine WBC 5-10 H /HPF Urine Crystals NONE /LPF Urine Bacteria NEGATIVE /HPF Urine Casts NONE /LPF Urine Mucus NEGATIVE /LPF Urine Culture Indicated CULTURE PENDING My Orders Orders - APOLLO GROSS Cbc With Automated Diff (09/21/19 18:38) Comprehensive Metabolic Panel (09/21/19 18:38) Blood Culture (09/21/19 18:38) Sputum Culture (09/21/19 18:38) Urinalysis (09/21/19 18:38) Urine Culture (09/21/19 18:38) Protime With Inr (09/21/19 18:38) Partial Thromboplastin Time (09/21/19 18:38) Chest 1 View, Ap/Pa Only (09/21/19 18:38) Ed Iv/Invasive Line Start (09/21/19 18:38) Ed Iv/Invasive Line Start (09/21/19 18:38) Vital Signs Adult Sepsis Patie Q15M (09/21/19 18:38) O2 (09/21/19 18:38) Remove Rings In Anticipation O (09/21/19 18:38) Lactic Acid Analyzer (09/21/19 18:38) Ns Iv 1000 Ml (Sodium Chloride 0.9%) (09/21/19 18:38) Cefepime Injection (Maxipime Injection) (09/21/19 18:45) Vancomycin Injection (Vancomycin Injecti (09/21/19 18:45) Pharmacy To Dose (Pharmacy To Dose) (09/21/19 18:45) Ed Iv/Invasive Line Start (09/21/19 18:38) Ns Iv 500 Ml (Sodium Chloride 0.9%) (09/21/19 18:38) Body Fluid Culture (09/21/19 18:38) Medications Given in ED Current Medications Medications Dose Ordered Sig/Ninfa Route Start Time Stop Time Status Last Admin Dose Admin Cefepime HCl 1000 mg/Sterile Water 10 ml @ 200 mls/hr ONCE ONCE IV 09/21/19 18:45 09/21/19 18:47 DC 09/21/19 20:13 200 MLS/HR Sodium Chloride 500 ml @ 0 mls/hr Q0M ONCE IV 09/21/19 18:38 09/21/19 18:41 DC 09/21/19 20:13 500 MLS/HR Vital Signs/I&O 09/21/19 09/21/19 09/21/19 09/21/19 18:28 19:13 19:13 20:43 Temp 36.9 36.9 Pulse 89 89 82 Resp 20 20 22 B/P (MAP) 147/95 (112) 147/95 (112) 144/84 (104) Pulse Ox 95 95 95 94 O2 Delivery Room Air Room Air Capillary Refill : Progress Note : Time: 18:46 Progress Note Patient says she is okay for pain and nausea at this time. Plan to do a septic workup including 1500 cc which is 20 mL/kg and get some urine as well as sample her pleural fluid using the peritoneal catheter already in place. After we have collected all of her samples and cultures we will give her broad-spectrum cefepime and vancomycin and plan to put her in the hospital. She says in the past combination of fentanyl and morphine helped control her pain. Morphine is listed as an allergy but it is for itching. Previous micro-urine specimen showed mixed cintia as well as enterococcus and pseudomonas aeruginosa that was pansensitive. Diagnostic Imaging Diagonstic Imaging: Xray Plain Films/CT/US/NM/MRI: chest Comments NAME: SUZIE MILLER [facility] REC#: [id number] PT STATUS: REG ER : 1960 PHYSICIAN: APOLLO GROSS MD ADMIT DATE: 09/21/19/ER Signed Date of Exam:09/21/19 CHEST 1 VIEW, AP/PA ONLY INDICATION: Fever. Time of exam: 7:19 PM Correlation is made with prior chest from 06/11/2019. Right chest wall port has tip overlying the SVC. Nodular density left base is noted suggestive of a granuloma. No infiltrates are detected. No effusion or pneumothorax is seen. The right hemidiaphragm is chronically elevated. Heart size stable. IMPRESSION: Stable chest. No acute feature is detected. Dictated by: Dictated on workstation # [id number] Dict: 09/21/191933 Trans: 09/21/191953 [facility] [id number] Interpreted by: ANGELITA WING MD Electronically signed by: ANGELITA WING MD 09/21/191953 Reviewed: Reviewed by Me Departure Communication (Admissions) Time/Spoke to Admitting Phy: 20:58 Discussed the case with Dr. Davis and she agrees to accept the patient to the cardiac stepdown. Impression Primary Impression: Sepsis Qualified Codes: A41.9 - Sepsis, unspecified organism Additional Impression: UTI (urinary tract infection) Qualified Codes: N30.00 - Acute cystitis without hematuria Disposition: ADMITTED INPATIENT Condition: Stable Admissions Decision to Admit Reason: Admit from ER (General) Decision to Admit/Date: Sep 21, 2019 Time/Decision to Admit Time: 20:50 Departure-Patient Inst. Referrals: FADY HUFFMAN DO (PCP/Family) Primary Care Physician APOLLO GROSS Sep 21, 2019 18:47
[2019-09-21 19:18] LABS: BASOPHILS % (AUTO) 0 % (0-10); EOSINOPHILS # (AUTO) 0.1 10^3/uL (0.0-0.3); EOSINOPHILS % (AUTO) 1 % (0-10); HEMATOCRIT 23 % (35-52); HEMOGLOBIN 7.2 G/DL (11.5-16.0); LYMPHOCYTES # (AUTO) 0.9 X 10^3 (1.0-4.0); LYMPHOCYTES % (AUTO) 18 % (12-44); MEAN CORPUSCULAR HEMOGLOBIN 30 PG (25-34); MEAN CORPUSCULAR HGB CONC 31 G/DL (32-36); MEAN CORPUSCULAR VOLUME 95 FL (80-99); MEAN PLATELET VOLUME 9.1 FL (7.4-10.4); MONOCYTES # (AUTO) 0.7 X 10^3 (0.0-1.0); MONOCYTES % (AUTO) 14 % (0-12); NEUTROPHILS # (AUTO) 3.3 X 10^3 (1.8-7.8); NEUTROPHILS % (AUTO) 67 % (42-75); PLATELET COUNT 271 10^3/uL (130-400); RED CELL DISTRIBUTION WIDTH 16.8 % (10.0-14.5); WHITE BLOOD COUNT 4.9 10^3/uL (4.3-11.0)
--- NOTE | 2019-09-21 19:23 | NUR ---
resumed care of pt from francisco javier.
[2019-09-21 19:38] LABS: PROTHROMBIN TIME PATIENT 13.6 SEC (12.2-14.7)
[2019-09-21 19:39] LABS: ALANINE AMINOTRANSFERASE 15 U/L (0-55); ALBUMIN 2.9 GM/DL (3.2-4.5); ALKALINE PHOSPHATASE 66 U/L (40-136); BILIRUBIN,TOTAL 0.1 MG/DL (0.1-1.0); BUN/CREATININE RATIO 14; CALCIUM 8.6 MG/DL (8.5-10.1); CARBON DIOXIDE 23 MMOL/L (21-32); CHLORIDE 100 MMOL/L (98-107); CREATININE SERUM 0.79 MG/DL (0.60-1.30); GFR ESTIMATED > 60; GLUCOSE 127 MG/DL (70-105); POTASSIUM 3.9 MMOL/L (3.6-5.0); SODIUM 134 MMOL/L (135-145); TOTAL PROTEIN 5.6 GM/DL (6.4-8.2)
--- NOTE | 2019-09-21 19:42 | Diagnostic Imaging Report ---
INDICATION: Fever. Time of exam: 7:19 PM Correlation is made with prior chest from 06/11/2019. Right chest wall port has tip overlying the SVC. Nodular density left base is noted suggestive of a granuloma. No infiltrates are detected. No effusion or pneumothorax is seen. The right hemidiaphragm is chronically elevated. Heart size stable. IMPRESSION: Stable chest. No acute feature is detected. Dictated by: Dictated on workstation # [id number]
[2019-09-21 20:21] LABS: BILIRUBIN,URINE NEGATIVE (NEGATIVE); CLARITY,URINE CLEAR; COLOR,URINE YELLOW; GLUCOSE, URINE (UA) NEGATIVE (NEGATIVE); KETONES,URINE NEGATIVE (NEGATIVE); LEUKOCYTE ESTERASE ,URINE 1+ (NEGATIVE); NITRITE,URINE NEGATIVE (NEGATIVE); PROTEIN,URINE NEGATIVE (NEGATIVE)
[2019-09-21 20:50] LABS: BACTERIA,URINE NEGATIVE /HPF
[2019-09-21] MEDS ORDERED: NS IV 500 ML 500 ML ONE (21:06)
[2019-09-21] MEDS ORDERED: VANCOMYCIN INJECTION 1,000 MG in NS (IVPB) 250 ML IV SCH (21:15)
[2019-09-21] MEDS ORDERED: ONDANSETRON 4 MG (ZOFRAN) ORAL DISSOLVE TAB PO PRN (21:15)
[2019-09-21] MEDS ORDERED: fentaNYL INJECTION 100 MCG/2 ML AMP IVP PRN (21:15)
[2019-09-21] MEDS ORDERED: ACETAMINOPHEN 500 MG TAB (TYLENOL) PO PRN (21:15)
[2019-09-21] MEDS ORDERED: MELATONIN 3 MG TABLET PO PRN (21:15)
[2019-09-21] MEDS ORDERED: LACTULOSE SYRUP 10GM/15ML (ENULOSE) 30ML UDC PO PRN (21:15)
[2019-09-21] MEDS ORDERED: LOPERAMIDE 2 MG (IMODIUM) TABLET PO PRN (21:15)
[2019-09-21] MEDS ORDERED: BISACODYL 10 MG SUPP (DULCOLAX) PR PRN (21:15)
[2019-09-21] MEDS ORDERED: HYDROmorphone 2 MG/ML VIAL (DILAUDID) IVP PRN (21:15)
[2019-09-21] MEDS ORDERED: DOCUSATE SODIUM 100 MG (COLACE) CAP PO PRN (21:15)
[2019-09-21] MEDS ORDERED: ENOXAPARIN 40 MG/0.4 ML (LOVENOX) SYR SC SCH (21:15)
[2019-09-21] MEDS ORDERED: ALPRAZolam 0.25 MG (XANAX) TAB PO PRN (21:15)
[2019-09-21] MEDS ORDERED: CALCIUM CARBONATE 500 MG (TUMS) TAB.CHEW PO PRN (21:15)
--- OUTSIDE RECORDS SUMMARY | 2019-09-21 22:35 | XMS REPORT ---
Author Author Macey Frank Organization [facility] Address [address] [place], [place] [id number] Care Team Providers Care Scenery Builder Name Role Phone Home Frank PCP Allergies [...] (25 mcg) by oral route once daily Name Start Date Expiration Date SIG Comments Levaquin 500 mg oral tablet 05/25/2019 05/28/2019 take 1 tablet (500 mg) by oral route once daily for 3 days Bactrim DS 800-160 mg oral tablet 07/27/2019 08/01/2019 take 1 tablet by oral route every 12 hours for 5 days Discontinued Name Start Date Discontinued Date SIG Comments diazepam 10 mg oral tablet 05/25/2019 take 1 tablet (10 mg) by oral route 2 times per day tramadol 50 mg oral tablet 05/25/2019 take 1 tablet (50 mg) by oral route every 6 hours as needed amlodipine 5 mg oral tablet 05/25/2019 take 1 tablet (5 mg) by oral route once daily Cipro 500 mg oral tablet 07/27/2019 Problem List Not available. Vital Signs Date Time BP-Sys(mm[Hg] BP-Naila(mm[Hg]) HR(bpm) RR(rpm) Temp WT HT HC BMI BSA BMI Percentile O2 Sat(%) 07/27/2019 1:08:00 PM 160 mm[Hg] 90 mm[Hg] 98 {beats}/min 18 rpm 97.9 F 152 lbs 98 % 04/15/2019 1:59:00 PM 130 mm[Hg] 88 mm[Hg] 110 {beats}/min 18 rpm 97.9 F 160 lbs 66 in 25.82 kg/m2 1.84 m2 99 % Social History Name Description Comments Tobacco Never smoker History of Procedures Date Ordered Description Order Status 07/27/2019 2:05 PM US URINE CAPACITY MEASURE Reviewed 07/30/2019 12:00 AM Coronavirus non-CDC test Reviewed Results Summary Date and Description Results 07/27/2019 2:05 PM Residual Urine 95.0 mL 08/02/2019 9:37 AM SARS-CoV-2 RNA NEGATIVE SARS -CoV-2 RNA NEGATIVE History Of Immunizations Not available. History of Past Illness Name Date of Onset Comments Hypertension Hypothyroidism Breast cancer in female Bone cancer Malignant peritoneal local recurrence Ureteral obstruction Apr 15 2019 2:01PM UTI (urinary tract infection) May 25 2019 10:01AM Hydronephrosis May 25 2019 10:01AM Breast cancer May 25 2019 10:01AM Chemical cystitis Jul 27 2019 1:09PM UTI (urinary tract infection) Jul 27 2019 1:09PM Preoperative examination Jul 30 2019 11:36AM Payers Insurance Name Company Name Plan Name Plan Number Policy Number [place] [employer] Group Number Start Date Medicare Part B Medicare Of [place] [id number] N/A [facility] [id number] N/A History of Encounters Visit Date Visit Type Provider 08/02/2019 Surgery Home Frank MD 07/27/2019 Office visit EITAN KRUGER APRN 05/25/2019 Office visit Home Frank MD 05/25/2019 Surgery Home Frank MD 04/15/2019 Office visit EITAN KRUGER ENGINEERING SCIENTIST
--- OUTSIDE RECORDS SUMMARY | 2019-09-21 22:35 | XMS REPORT ---
Author Author Macey Frank Organization [facility] Address [address] [place], [place] [phone] Care Team Providers Care Emanations Analysis Technician Name Role Phone Home Frank PCP Allergies [...] 2:05 PM US URINE CAPACITY MEASURE Reviewed Results Summary Date and Description Results 07/27/2019 2:05 PM Residual Urine 95.0 mL History Of Immunizations Not available. History of [...] Date Medicare Part B Medicare Of [place] [id number] N/A [employer] [facility] [id number] N/A History of Encounters Visit Date Visit Type Provider 07/27/2019 Office visit Home Frank MD 05/25/2019 Office visit Home Frank MD 05/25/2019 Surgery Home Frank MD 04/15/2019 Office visit EITAN KRUGER NEGATIVE ASSEMBLER
--- OUTSIDE RECORDS SUMMARY | 2019-09-21 22:35 | XMS REPORT ---
Author Author Macey Frank Organization [facility] Address [address] [place], [place] [id number] Care Team Providers Care Field Operations Manager Name Role Phone Home Frank PCP Allergies [...] (25 mcg) by oral route once daily Bactrim DS 800-160 mg oral tablet 07/27/2019 08/01/2019 take 1 tablet by oral route every 12 hours for 5 days Name Start Date Expiration Date SIG Comments Levaquin 500 mg oral tablet 05/25/2019 05/28/2019 take 1 tablet (500 mg) by oral route once daily for 3 days Discontinued Name Start Date Discontinued Date [...] Date Medicare Part B Medicare Of [place] [id number] N/A [employer] [facility] [facility] [id number] N/A History of Encounters Visit Date Visit Type Provider 07/27/2019 Office visit Home Frank MD 05/25/2019 Office visit Home Frank MD 05/25/2019 Surgery Home Frank MD 04/15/2019 Office visit EITAN KRUGER SPINE SURGEON
--- OUTSIDE RECORDS SUMMARY | 2019-09-21 22:35 | XMS REPORT ---
Author Author Macey KRUGER [facility] Address [address] [place], [place] [id number] Care Team Providers Care Waitress Name Role Phone EITAN KRUGER PCP Allergies and Adverse Reactions Name Reaction [...] Date Medicare Part B Medicare Of [place] [id number] N/A [facility] [id number] N/A History of Encounters Visit Date Visit Type Provider 07/27/2019 Office visit EITAN KRUGER APRN 05/25/2019 Office visit Home Frank MD 05/25/2019 Surgery Home Frank MD 04/15/2019 Office visit EITAN KRUGER SUPERVISOR PARTICLEBOARD
--- OUTSIDE RECORDS SUMMARY | 2019-09-21 22:36 | XMS REPORT ---
Author Author Macey Frank Organization [facility] Address [address] [place], [place] [id number] Care Team Providers Care Nuclear Monitoring Technician Name Role Phone Home Frank PCP [...] US URINE CAPACITY MEASURE Reviewed Results Summary Not available. History Of Immunizations [...] Date Medicare Part B Medicare Of [place] [id number] N/A [employer] [facility] [id number] N/A History of Encounters Visit Date Visit Type Provider 07/27/2019 Office visit Home Frank MD 05/25/2019 Office visit Home Frank MD 05/25/2019 Surgery Home Frank MD 04/15/2019 Office visit EITAN KRUGER INSTALLATION SUPERVISOR
--- OUTSIDE RECORDS SUMMARY | 2019-09-21 22:38 | XMS REPORT | Continuity of Care Document ---
Demographics Preferred Language Unknown Marital Status Unknown Sabianist Affiliation Unknown Race Unknown Ethnic Group Unknown Author Organization Unknown Address Unknown Phone Unavailable Allergies Active Description Code Type Severity Reaction Onset Reported/Identified Relationship to Patient Clinical Status Yes ASPIRIN [id number] DRUG N/A N/A Yes COMPAZINE [id number] DRUG N/A N/A Yes PROCHLORPERAZINE [id number] DRUG N/A N/A Yes aspirin [id number] Drug Allergy Unknown N/A 01/13/2018 Yes morphine [id number] Drug Allergy Moderate Itching 04/18/2019 Yes prochlorperazine [id number] Drug Allergy Unknown N/A 06/11/2019 Medications There is no data. 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 11 ACQUIRED ABSENCE OF RIGHT BREAST AND NIP 02/17/2018 HUY STONE MD Ot Z90. 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 03/02/2018 HUY STONE MD Ot Z79.899 OTHER LONG-TERM (CURRENT) DRUG THERAPY 03/02/2018 HUY STONE MD [...] 03/02/2018 HUY STONE MD Ot Z79.899 OTHER ELASTIC ATTACHER OVERLOCK (CURRENT) DRUG THERAPY 03/02/2018 HUY STONE MD [...] 03/03/2018 HUY STONE MD Ot Z79.899 OTHER ELASTIC ATTACHER OVERLOCK (CURRENT) DRUG THERAPY 03/03/2018 HUY STONE MD [...] 04/13/2018 HUY STONE MD Ot Z79.899 OTHER LONG-TERM (CURRENT) DRUG THERAPY 04/13/2018 HUY STONE MD [...] 04/14/2018 HUY STONE MD Ot Z79.899 OTHER LONG-TERM (CURRENT) DRUG THERAPY 04/14/2018 HUY STONE MD [...] 05/31/2018 HUY STONE MD Ot Z79.899 OTHER ELASTIC ATTACHER OVERLOCK (CURRENT) DRUG THERAPY 05/31/2018 HUY STONE MD [...] 06/01/2018 HUY STONE MD, Ot Z79.899 OTHER LONG-TERM (CURRENT) DRUG THERAPY 06/01/2018 HUY STONE MD [...] 06/03/2018 HUY STONE MD Ot Z79.899 OTHER ELASTIC ATTACHER OVERLOCK (CURRENT) DRUG THERAPY 06/03/2018 HUY STONE MD [...] 06/04/2018 HUY STONE MD, Ot Z79.899 OTHER LONG-TERM (CURRENT) DRUG THERAPY 06/04/2018 HUY STONE MD, [...] 06/06/2018 HUY STONE MD Ot Z79.899 OTHER LONG-TERM (CURRENT) DRUG THERAPY 06/06/2018 HUY STONE MD [...] 07/08/2018 HUY STONE MD Ot Z79.899 OTHER LONG-TERM (CURRENT) DRUG THERAPY 07/08/2018 HUY STONE MD [...] 07/14/2018 HUY STONE MD Ot Z79.899 OTHER ELASTIC ATTACHER OVERLOCK (CURRENT) DRUG THERAPY 07/14/2018 HUY STONE MD [...] 08/05/2018 HUY STONE MD Ot Z79.899 OTHER ELASTIC ATTACHER OVERLOCK (CURRENT) DRUG THERAPY 08/05/2018 HUY STONE MD [...] 08/05/2018 HUY STONE MD Ot Z79.899 OTHER LONG-TERM (CURRENT) DRUG THERAPY 08/05/2018 HUY STONE MD [...] 08/17/2018 HUY STONE MD Ot Z79.899 OTHER LONG-TERM (CURRENT) DRUG THERAPY 08/17/2018 HUY STONE MD [...] 09/01/2018 HUY STONE MD Ot Z79.899 OTHER LONG-TERM (CURRENT) DRUG THERAPY 09/01/2018 HUY STONE MD [...] 09/03/2018 ERIC BRADY MD Ot Z79.899 OTHER ELASTIC ATTACHER OVERLOCK (CURRENT) DRUG THERAPY 09/03/2018 ERIC BRADY MD [...] 09/03/2018 ERIC BRADY MD Ot Z79.899 OTHER LONG-TERM (CURRENT) DRUG THERAPY 09/03/2018 ERIC BRADY MD [...] 09/03/2018 HUY STONE MD Ot Z79.899 OTHER LONG-TERM (CURRENT) DRUG THERAPY 09/03/2018 HUY STONE MD [...] 09/04/2018 HUY STONE MD Ot Z79.899 OTHER ELASTIC ATTACHER OVERLOCK (CURRENT) DRUG THERAPY 09/04/2018 HUY STONE MD [...] 09/23/2018 HUY STONE MD Ot Z79.899 OTHER LONG-TERM (CURRENT) DRUG THERAPY 09/23/2018 HUY STONE MD [...] 10/16/2018 HUY STONE MD Ot Z79.899 OTHER LONG-TERM (CURRENT) DRUG THERAPY 10/16/2018 HUY STONE MD [...] 10/20/2018 HUY STONE MD Ot Z79.899 OTHER ELASTIC ATTACHER OVERLOCK (CURRENT) DRUG THERAPY 10/20/2018 HUY STONE MD [...] 12/02/2018 HUY STONE MD Ot Z79.899 OTHER ELASTIC ATTACHER OVERLOCK (CURRENT) DRUG THERAPY 12/02/2018 HUY STONE MD [...] 12/03/2018 HUY STONE MD Ot Z79.899 OTHER ELASTIC ATTACHER OVERLOCK (CURRENT) DRUG THERAPY 12/03/2018 HUY STONE MD [...] 12/09/2018 HUY STONE MD Ot Z79.899 OTHER ELASTIC ATTACHER OVERLOCK (CURRENT) DRUG THERAPY 12/09/2018 HUY STONE MD [...] 12/24/2018 HUY STONE MD Ot Z79.899 OTHER ELASTIC ATTACHER OVERLOCK (CURRENT) DRUG THERAPY 12/24/2018 HUY STONE MD [...] 01/11/2019 HUY STONE MD Ot Z79.899 OTHER ELASTIC ATTACHER OVERLOCK (CURRENT) DRUG THERAPY 01/11/2019 HUY STONE MD [...] 03/09/2019 HUY STONE MD Ot Z79.899 OTHER ELASTIC ATTACHER OVERLOCK (CURRENT) DRUG THERAPY 03/09/2019 HUY STONE MD [...] 51 SECONDARY MALIGNANT NEOPLASM OF BONE 03/11/2019 HYU STONE MD Ot Z79.899 OTHER ELASTIC ATTACHER OVERLOCK (CURRENT) DRUG THERAPY 03/11/2019 HUY STONE MD [...] 03/22/2019 HUY STONE MD Ot Z79.899 OTHER LONG-TERM (CURRENT) DRUG THERAPY 03/22/2019 HUY STONE MD [...] 03/22/2019 HUY STONE MD Ot Z79.899 OTHER LONG-TERM (CURRENT) DRUG THERAPY 03/22/2019 HUY STONE MD [...] 03/23/2019 HUY STONE MD Ot Z79.899 OTHER LONG-TERM (CURRENT) DRUG THERAPY 03/23/2019 HUY STONE MD [...] 2019 HUY STONE MD Ot Z79.899 OTHER ELASTIC ATTACHER OVERLOCK (CURRENT) DRUG THERAPY 2019 HUY STONE MD [...] 04/12/2019 HUY STONE MD Ot Z79.899 OTHER ELASTIC ATTACHER OVERLOCK (CURRENT) DRUG THERAPY 04/12/2019 HUY STONE MD [...] 04/12/2019 HUY STONE MD Ot Z79.899 OTHER LONG-TERM (CURRENT) DRUG THERAPY 04/12/2019 HUY STONE MD, [...] 04/13/2019 HUY STONE MD Ot Z79.899 OTHER ELASTIC ATTACHER OVERLOCK (CURRENT) DRUG THERAPY 04/13/2019 HUY STONE MD, [...] 04/14/2019 HUY STONE MD Ot Z79.899 OTHER LONG-TERM (CURRENT) DRUG THERAPY 04/14/2019 HUY STONE MD, [...] 04/14/2019 HUY STONE MD Ot Z79.899 OTHER ELASTIC ATTACHER OVERLOCK (CURRENT) DRUG THERAPY 04/14/2019 HUY STONE MD, [...] 04/14/2019 HUY STONE MD, Ot Z79.899 OTHER LONG-TERM (CURRENT) DRUG THERAPY 04/14/2019 HYU STONE MD, Ot Z90. 11 ACQUIRED ABSENCE [...] 04/17/2019 HUY STONE MD, Ot Z79.899 OTHER ELASTIC ATTACHER OVERLOCK (CURRENT) DRUG THERAPY 04/17/2019 HUY STONE MD, [...] 04/17/2019 HUY STONE MD, Ot Z79.899 OTHER ELASTIC ATTACHER OVERLOCK (CURRENT) DRUG THERAPY 04/17/2019 HUY STONE MD, [...] 04/17/2019 HUY STONE MD, Ot Z79.899 OTHER LONG-TERM (CURRENT) DRUG THERAPY 04/17/2019 HUY STONE MD, [...] 04/17/2019 HUY STONE MD, Ot Z79.899 OTHER ELASTIC ATTACHER OVERLOCK (CURRENT) DRUG THERAPY 04/17/2019 HUY STONE MD, [...] 04/17/2019 HUY STONE MD, Ot Z79.899 OTHER ELASTIC ATTACHER OVERLOCK (CURRENT) DRUG THERAPY 04/17/2019 HUY STONE MD, [...] Ot R18. 8 OTHER ASCITES 04/17/2019 HUY STOEN MD Ot R42 DIZZINESS AND GIDDINESS 04/17/2019 [...] 04/19/2019 HUY STONE MD, Ot Z79.899 OTHER ELASTIC ATTACHER OVERLOCK (CURRENT) DRUG THERAPY 04/19/2019 HUY STONE MD, [...] 04/21/2019 HUY STONE MD Ot Z79.899 OTHER ELASTIC ATTACHER OVERLOCK (CURRENT) DRUG THERAPY 04/21/2019 HUY STONE MD, [...] 04/21/2019 HUY STONE MD, Ot Z79.899 OTHER LONG-TERM (CURRENT) DRUG THERAPY 04/21/2019 HUY STONE MD, [...] 04/21/2019 HUY STONE MD Ot Z79.899 OTHER ELASTIC ATTACHER OVERLOCK (CURRENT) DRUG THERAPY 04/21/2019 HUY STONE MD, [...] 04/21/2019 HUY STONE MD Ot Z79.899 OTHER LONG-TERM (CURRENT) DRUG THERAPY 04/21/2019 HUY STONE MD, [...] 04/21/2019 HUY STONE MD, Ot Z79.899 OTHER LONG-TERM (CURRENT) DRUG THERAPY 04/21/2019 HUY STONE MD, [...] 04/22/2019 HUY STONE MD, Ot Z79.899 OTHER LONG-TERM (CURRENT) DRUG THERAPY 04/22/2019 HUY STONE MD, [...] 04/29/2019 HUY STONE MD, Ot Z79.899 OTHER LONG-TERM (CURRENT) DRUG THERAPY 04/29/2019 HUY STONE MD, [...] 04/29/2019 HUY STONE MD, Ot Z79.899 OTHER LONG-TERM (CURRENT) DRUG THERAPY 04/29/2019 HUY STONE MD, [...] 04/30/2019 HUY STONE MD, Ot Z79.899 OTHER ELASTIC ATTACHER OVERLOCK (CURRENT) DRUG THERAPY 04/30/2019 HUY STONE MD, [...] Ot K21.9 GASTRO-ESOPHAGEAL REFLUX DISEASE WITHOUT 04/30/2019 WILFRDEO PAREDES Ot N13.1 HYDRONEPHROSIS W URETERAL STRICTURE, [...] 05/04/2019 HUY STONE MD, Ot Z79.899 OTHER LONG-TERM (CURRENT) DRUG THERAPY 05/04/2019 HUY STONE MD, [...] Ot I10 ESSENTIAL (PRIMARY) HYPERTENSION 05/04/2019 HUY SOTNE MD, Ot I95. 9 HYPOTENSION, UNSPECIFIED 05/04/2019 [...] 05/04/2019 HUY STONE MD, Ot Z79.899 OTHER LONG-TERM (CURRENT) DRUG THERAPY 05/04/2019 HUY STONE MD, Ot Z85. 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 05/05/2019 HUY STONE MD, Ot Z79.899 OTHER LONG-TERM (CURRENT) DRUG THERAPY 05/05/2019 HUY STONE MD, [...] 05/05/2019 HUY STONE MD, Ot Z79.899 OTHER LONG-TERM (CURRENT) DRUG THERAPY 05/05/2019 HUY STONE MD, [...] IMM 05/06/2019 HUY STONE MD, Ot Z79.891 LONG-TERM (CURRENT) USE OF OPIATE ANALGE 05/06/2019 HUY STONE MD, Ot Z79.899 OTHER LONG-TERM (CURRENT) DRUG THERAPY 05/06/2019 HUY STONE MD, [...] 05/10/2019 HUY STONE MD, Ot Z79.899 OTHER LONG-TERM (CURRENT) DRUG THERAPY 05/10/2019 HUY STONE MD, [...] 05/10/2019 HUY STONE MD Ot Z79.899 OTHER LONG-TERM (CURRENT) DRUG THERAPY 05/10/2019 HUY STONE MD, [...] K76.89 OTHER SPECIFIED DISEASES OF LIVER 05/11/2019 TIOC GALAN MD Ot K82.8 OTHER SPECIFIED DISEASES OF GALLBLADDER 05/11/2019 TICO GALAN MD Ot R18.8 OTHER ASCITES 05/11/2019 HUY STONE MD Ot C50.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 79 ACQUIRED ABSENCE OF OTHER GENITAL ORGAN( 05/13/2019 TICO GALAN MD Ot K76.89 OTHER SPECIFIED DISEASES OF LIVER 05/13/2019 TICO GLAAN MD Ot K82.8 OTHER SPECIFIED DISEASES OF [...] MD Ot R18. 8 OTHER ASCITES 05/27/2019 HYU STONE MD Ot C50.311 MALIG NEOPLM OF [...] 06/03/2019 HUY STONE MD Ot Z79.899 OTHER ELASTIC ATTACHER OVERLOCK (CURRENT) DRUG THERAPY 06/03/2019 HUY STONE MD [...] 06/03/2019 HUY STONE MD Ot Z79.899 OTHER LONG-TERM (CURRENT) DRUG THERAPY 06/03/2019 HUY STONE MD [...] 51 SECONDARY MALIGNANT NEOPLASM OF BONE 06/03/2019 [place] DO, NICKIE Zuleta Ot R18. 8 OTHER [...] 06/11/2019 HUY STONE MD, Ot Z79.899 OTHER LONG-TERM (CURRENT) DRUG THERAPY 06/11/2019 HUY STONE MD, Ot Z90. 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 9 ANEMIA, UNSPECIFIED 06/15/2019 ZAIN LANDRUM MD, Ot D70. 1 AGRANULOCYTOSIS SECONDARY TO CANCER CHEM 06/15/2019 ZAIN LANDRUM MD Ot E03. 9 HYPOTHYROIDISM, UNSPECIFIED 06/15/2019 ZAIN LANDRUM MD Ot E46 UNSPECIFIED PROTEIN-CALORIE MALNUTRITION 06/15/2019 ZAIN LANDRUM MD Ot E86. 1 HYPOVOLEMIA 06/15/2019 ZAIN LANDRUM MD Ot E87. 1 HYPO-OSMOLALITY AND HYPONATREMIA 06/15/2019 ZAIN LANDRUM MD Ot E87. 6 HYPOKALEMIA 06/15/2019 ZAIN LANDRUM MD Ot E88. 09 OTH DISORDERS OF PLASMA-PROTEIN METABOLI 06/15/2019 ZAIN LANDRUM MD Ot F32. 9 MAJOR DEPRESSIVE DISORDER, SINGLE EPISOD 06/15/2019 ZAIN LANDRUM MD Ot F41. 9 ANXIETY DISORDER, UNSPECIFIED 06/15/2019 ZAIN LANDRUM MD Ot F90. 9 ATTENTION-DEFICIT HYPERACTIVITY DISORDER 06/15/2019 ZAIN LANDRUM MD Ot G47. 00 INSOMNIA, UNSPECIFIED 06/15/2019 ZAIN LANDRUM MD Ot G62. 9 POLYNEUROPATHY, UNSPECIFIED 06/15/2019 ZAIN LANDRUM MD Ot I10 ESSENTIAL (PRIMARY) HYPERTENSION 06/15/2019 ZAIN LANDRUM MD Ot J45.909 UNSPECIFIED ASTHMA, UNCOMPLICATED 06/15/2019 ZAIN LANDRUM MD Ot J98. 11 ATELECTASIS 06/15/2019 ZAIN LANDRUM MD Ot K21. 9 GASTRO-ESOPHAGEAL REFLUX DISEASE WITHOUT 06/15/2019 ZAIN LANDRUM MD Ot K56.690 OTHER PARTIAL INTESTINAL OBSTRUCTION 06/15/2019 ZAIN LANDRUM MD Ot R18. 0 MALIGNANT ASCITES 06/15/2019 ZAIN LANDRUM MD Ot R60. 1 GENERALIZED EDEMA 06/15/2019 ZAIN LANDRUM MD Ot Z85. 3 PERSONAL HISTORY OF MALIGNANT NEOPLASM O 06/15/2019 ZAIN LANDRUM MD Ot Z96. 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 11 ENCOUNTER FOR ANTINEOPLASTIC CHEMOTHERAP 06/20/2019 HUY STONE MD, Ot Z79.899 OTHER ELASTIC ATTACHER OVERLOCK (CURRENT) DRUG THERAPY 06/20/2019 HUY STONE MD, Ot Z90. 11 ACQUIRED ABSENCE OF RIGHT BREAST AND NIP 06/20/2019 HUY STONE MD, Ot Z90. 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 11 ENCOUNTER FOR ANTINEOPLASTIC CHEMOTHERAP 06/22/2019 HUY STONE MD, Ot Z79.899 OTHER LONG-TERM (CURRENT) DRUG THERAPY 06/22/2019 HUY STONE MD, Ot Z90. 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 89 OTHER SPECIFIED DISEASES OF INTESTINE 06/26/2019 HUY STONE MD Ot R18. 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 0 ANEMIA IN NEOPLASTIC DISEASE 06/28/2019 UHY STONE MD Ot R18. 8 OTHER ASCITES 06/28/2019 HUY STONE MD Ot Z79.899 OTHER ELASTIC ATTACHER OVERLOCK (CURRENT) DRUG THERAPY 06/28/2019 HUY STONE MD Ot Z90. 11 ACQUIRED ABSENCE OF RIGHT BREAST AND NIP 06/28/2019 HUY STONE MD Ot Z90. 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 51 SECONDARY MALIGNANT NEOPLASM OF BONE 07/08/2019 HUY STONE MD Ot D63. 0 ANEMIA IN NEOPLASTIC DISEASE 07/08/2019 HUY STONE MD Ot R18. 8 OTHER ASCITES 07/08/2019 HUY STONE MD Ot Z79.899 OTHER LONG-TERM (CURRENT) DRUG THERAPY 07/08/2019 HUY STONE MD Ot Z90. 11 ACQUIRED ABSENCE OF RIGHT BREAST AND NIP 07/08/2019 HUY STONE MD Ot Z90. 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 51 SECONDARY MALIGNANT NEOPLASM OF BONE 07/28/2019 HUY STONE MD Ot R18. 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 51 SECONDARY MALIGNANT NEOPLASM OF BONE 07/28/2019 HUY STONE MD Ot R18. 8 OTHER ASCITES 07/28/2019 TICO GALAN MD Ot K76.89 OTHER SPECIFIED DISEASES OF LIVER 07/28/2019 TICO GALAN MD Ot K82.8 OTHER SPECIFIED DISEASES OF GALLBLADDER 07/28/2019 TICO GALAN MD Ot R18.8 OTHER ASCITES 07/28/2019 PERDOMO DONICKIE Ot R18. 8 OTHER ASCITES 07/28/2019 HUY STONE MD Ot C50.911 MALIGNANT NEOPLASM OF UNSP SITE OF RIGHT 07/28/2019 HUY STONE MD, Ot C79. 51 SECONDARY MALIGNANT NEOPLASM OF BONE 07/28/2019 HUY STONE MD Ot G93. 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 51 SECONDARY MALIGNANT NEOPLASM OF BONE 07/28/2019 HUY STONE MD Ot K63. 89 OTHER SPECIFIED DISEASES OF INTESTINE 07/28/2019 HUY STONE MD Ot R18. 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 51 SECONDARY MALIGNANT NEOPLASM OF BONE 07/28/2019 PERDOMO DO, NICKIE D Ot R18. 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 8 OTHER ASCITES 07/28/2019 HUY STONE MD, Ot Z79.899 OTHER ELASTIC ATTACHER OVERLOCK (CURRENT) DRUG THERAPY 07/28/2019 HUY STONE MD, Ot Z90. 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 51 SECONDARY MALIGNANT NEOPLASM OF BONE 07/28/2019 HUY STONE MD Ot R18. 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 6 SECONDARY MALIGNANT NEOPLASM OF RETROPER 07/28/2019 HUY STONE MD Ot C79. 51 SECONDARY MALIGNANT NEOPLASM OF BONE 07/28/2019 HUY STONE MD Ot R18. 8 OTHER ASCITES 07/28/2019 TICO GALAN MD Ot K76.89 OTHER SPECIFIED DISEASES OF LIVER 07/28/2019 TICO GALAN MD Ot K82.8 OTHER SPECIFIED DISEASES OF GALLBLADDER 07/28/2019 TICO GALAN MD Ot R18.8 OTHER ASCITES 07/28/2019 PERDOMO DO, NICKIE D Ot R18. 8 OTHER ASCITES 07/28/2019 HUY STONE MD, Ot C50.911 MALIGNANT NEOPLASM OF UNSP SITE OF RIGHT 07/28/2019 HUY STONE MD, Ot C79. 51 SECONDARY MALIGNANT NEOPLASM OF BONE 07/28/2019 HUY STONE MD, Ot G93. 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 51 SECONDARY MALIGNANT NEOPLASM OF BONE 07/28/2019 HUY STONE MD, Ot K63. 89 OTHER SPECIFIED DISEASES OF INTESTINE 07/28/2019 HUY STONE MD, Ot R18. 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 6 SECONDARY MALIGNANT NEOPLASM OF RETROPER 07/28/2019 PERDOMO DO, NICKIE D Ot C79. 51 SECONDARY MALIGNANT NEOPLASM OF BONE 07/28/2019 PERDOMO DO, NICKIE Zuleta Ot R18. 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 51 SECONDARY MALIGNANT NEOPLASM OF BONE 07/28/2019 HYU STONE MD, Ot D63. 0 ANEMIA IN NEOPLASTIC DISEASE 07/28/2019 HUY STONE MD, Ot R18. 8 OTHER ASCITES 07/28/2019 HUY STONE MD, Ot Z79.899 OTHER ELASTIC ATTACHER OVERLOCK (CURRENT) DRUG THERAPY 07/28/2019 HUY STONE MD, Ot Z90. 11 ACQUIRED ABSENCE OF RIGHT BREAST AND NIP 07/28/2019 XUN MD, ROQUE-MARLO Ot Z90. 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 51 SECONDARY MALIGNANT NEOPLASM OF BONE 07/28/2019 HUY STONE MD Ot R18. 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 6 SECONDARY MALIGNANT NEOPLASM OF RETROPER 07/28/2019 HUY STONE MD, Ot C79. 51 SECONDARY MALIGNANT NEOPLASM OF BONE 07/28/2019 HUY STONE MD Ot R18. 8 OTHER ASCITES 07/28/2019 TICO GALAN MD Ot K76.89 OTHER SPECIFIED DISEASES OF LIVER 07/28/2019 TICO GALAN MD Ot K82.8 OTHER SPECIFIED DISEASES OF GALLBLADDER 07/28/2019 TICO GALAN MD Ot R18.8 OTHER ASCITES 07/28/2019 PERDOMO DO, NICKIE D Ot R18. 8 OTHER ASCITES 07/28/2019 HUY STONE MD Ot C50.911 MALIGNANT NEOPLASM OF UNSP SITE OF RIGHT 07/28/2019 HUY STONE MD, Ot C79. 51 SECONDARY MALIGNANT NEOPLASM OF BONE 07/28/2019 HUY STONE MD Ot G93. 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 51 SECONDARY MALIGNANT NEOPLASM OF BONE 07/28/2019 HUY STONE MD Ot K63. 89 OTHER SPECIFIED DISEASES OF INTESTINE 07/28/2019 HUY STONE MD, Ot R18. 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 8 OTHER ASCITES 07/28/2019 HUY STONE MD, Ot C50.911 MALIGNANT NEOPLASM OF UNSP SITE OF RIGHT 07/28/2019 HUY STONE MD, Ot C78. 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 8 OTHER ASCITES 07/28/2019 HUY STONE MD, Ot Z79.899 OTHER LONG-TERM (CURRENT) DRUG THERAPY 07/28/2019 HUY STONE MD, Ot Z90. 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 79 ACQUIRED ABSENCE OF OTHER GENITAL ORGAN( 08/05/2019 HUY STOEN MD, Ot C50.911 MALIGNANT NEOPLASM OF UNSP SITE OF RIGHT 08/05/2019 HUY STONE MD, Ot C78. 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 11 ACQUIRED ABSENCE OF RIGHT BREAST AND NIP 08/05/2019 HUY STONE MD Ot Z90. 79 ACQUIRED ABSENCE OF OTHER GENITAL ORGAN( 08/10/2019 HUY STONE MD, Ot C50.911 MALIGNANT NEOPLASM OF UNSP SITE OF RIGHT 08/10/2019 HUY STONE MD, Ot C78. 6 SECONDARY MALIGNANT NEOPLASM OF RETROPER 08/10/2019 HUY STONE MD Ot C79. 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 79 ACQUIRED ABSENCE OF OTHER GENITAL ORGAN( Procedures Code Description Performed By Per formed On [id number] DR GRANADOS OF PERITONEAL CAVITY, PERCUTANE 04/19/2019 [id number] IN SERTION OF INFUSION DEV INTO SUP VENA 04/20/2019 [id number] IN SERT OF TUNNEL VAD INTO CHEST SUBCU/FA 04/20/[id number] GRANADOS OF PERITONEAL CAVITY WITH DRAIN 06/12/2019 [id number] IN SERTION OF TUNNEL VAD INTO ABD SUBCU/F 06/15/2019 Results Test Result Range Complete blood count [...] OF GROWTH Isolated NRG Bacterial blood culture [id number] NRG Bacterial blood culture - 04/28/19 20:58 [...] culture - 04/29/19 02:20 Bacterial urine culture [id number] NRG COLONY COUNT 50,000 CFU/ML NRG FTX;REPORTABLE [...] pa ashwin - 04/29/19 08:57 WRISTBAND NUMBER [id number] NRG ABO+Rh group OP NRG Blood group [...] OF GROWTH Isolated NRG Bacterial blood culture [id number] NRG FREE TEXT ENTRY 2 PRELIM RAPID [...] culture - 05/22/19 17:31 Bacterial urine culture [id number] NRG COLONY COUNT >100,000/ML NRG FTX;REPORTABLE REPORTED BY [facility] NRG FREE TEXT ENTRY 2 PRELIM RAPID ID BY [facility] 05-23-19, 1 319 NRG FREE TEXT ENTRY 3 PRELIM RAPID ID BY [facility] 05-23-19,13 17 NRG FREE TEXT ENTRY 4 ID CONFIRMED BY L 05/23 06:06 NRG Dirithromycin susceptibility test by [...] d white blood cell (WBC) differential - 06/12/19 04:05 Blood leukocytes automated count (number/volume) 1.8 10*3/uL 4.3-11.0 Blood erythrocytes automated count (number/volume) 3.23 10*6/uL 4.35-5.85 Venous blood hemoglobin measurement (mass/volume) 8.5 g/dL 11.5-16.0 Blood hematocrit (volume fraction) 27 % 35-52 Automated erythrocyte mean corpuscular volume 84 [ foz_us] 80-99 Automated erythrocyte mean corpuscular h emoglobin (mass per erythrocyte) 26 pg 25-34 Automated erythrocyte mean corpuscular h emoglobin concentration measurement (mass/volume) 32 g/dL 32-36 Automated erythrocyte distribution width ratio 22. 3 % 10.0- 14.5 Automated blood platelet count (count/volume) 421 10*3/uL 130-400 Automated blood platelet mean volume measurement 9.8 [foz_us] 7.4-10.4 Automated blood neutrophils/100 leukocytes 23 % 42-75 Automated blood lymphocytes/100 leukocytes 38 % 12-44 Blood monocytes/100 leukocytes 37 % 0-12 Automated blood eosinophils/100 leukocytes 2 % 0-10 Automated blood basophils/100 leukocytes 0 % 0-10 Blood neutrophils automated count (number/volume) 0.4 10*3 1.8-7.8 Blood lymphocytes automated count (number/volume) 0.7 10*3 1.0-4.0 Blood monocytes automated count (number/volume) 0. 7 10*3 0.0-1.0 Automated eosinophil count 0.0 10*3/uL 0 .0-0.3 Automated blood basophil count (count/volume) 0.0 10*3/uL 0.0-0.1 Comprehensive metabolic panel - 06/12/19 04:05 Serum or plasma sodium measurement (moles/volume) 128 mmol/L 135-145 Serum or plasma potassium measurement (moles/volume) 3.4 mmol/L 3.6-5.0 Serum or plasma chloride measurement (moles/volume) 96 mmol/L 98-107 Carbon dioxide 20 mmol/L 21-32 Serum or plasma anion gap determination (moles/volume) 12 mmol/L 5-14 Serum or plasma urea nitrogen measurement (mass/volume ) 10 mg/dL 7-18 Serum or plasma creatinine measurement (mass/volume) 0.76 mg/dL 0.60-1.30 Serum or plasma urea nitrogen/creatinine mass ratio 13 NRG Serum or plasma creatinine measurement w ith calculation of estimated glomerular filtration rate > NRG Serum or plasma glucose measurement (mass/volume) 147 mg/dL 70-105 Serum or plasma calcium measurement (mass/volume) 8.0 mg/dL 8.5-10.1 Serum or plasma total bilirubin measurement (mass/volu me) 0.3 mg/dL 0.1-1.0 Serum or plasma alkaline phosphatase miguel angel surement (enzymatic activity/volume) 84 U/L 40-136 Serum or plasma aspartate aminotransfera se measurement (enzymatic activity/volume) 18 U/L 5-34 Serum or plasma alanine aminotransferase measurement (enzymatic activity/volume) 12 U/L 0-55 Serum or plasma protein measurement (mass/volume) 4.9 g/dL 6.4-8.2 Serum or plasma albumin measurement (mass/volume) 2.4 g/dL 3.2-4.5 CALCIUM CORRECTED 9.3 mg/dL 8.5-10.1 Magnesium - 06/12/19 04:05 Magnesium 1.3 mg/dL 1.6-2.4 Complete blood count (CBC) with automate d white blood cell (WBC) differential - 06/13/19 04:10 Blood leukocytes automated count (number/volume) 1.9 10*3/uL 4.3-11.0 Blood erythrocytes automated count (number/volume) 2.67 10*6/uL 4.35-5.85 Venous blood hemoglobin measurement (mass/volume) 6.7 g/dL 11.5-16.0 Blood hematocrit (volume fraction) 23 % 35-52 Automated erythrocyte mean corpuscular volume 85 [ foz_us] 80-99 Automated erythrocyte mean corpuscular h emoglobin (mass per erythrocyte) 25 pg 25-34 Automated erythrocyte mean corpuscular h emoglobin concentration measurement (mass/volume) 30 g/dL 32-36 Automated erythrocyte distribution width ratio 22. 5 % 10.0- 14.5 Automated blood platelet count (count/volume) 325 10*3/uL 130-400 Automated blood platelet mean volume measurement 9.4 [foz_us] 7.4-10.4 Automated blood neutrophils/100 leukocytes 26 % 42-75 Automated blood lymphocytes/100 leukocytes 29 % 12-44 Blood monocytes/100 leukocytes 44 % 0-12 Automated blood eosinophils/100 leukocytes 1 % 0-10 Automated blood basophils/100 leukocytes 1 % 0-10 Blood neutrophils automated count (number/volume) 0.5 10*3 1.8-7.8 Blood lymphocytes automated count (number/volume) 0.5 10*3 1.0-4.0 Blood monocytes automated count (number/volume) 0. 8 10*3 0.0-1.0 Automated eosinophil count 0.0 10*3/uL 0 .0-0.3 Automated blood basophil count (count/volume) 0.0 10*3/uL 0.0-0.1 Whole blood basic metabolic panel - 05/16 12/04 04:10 Serum or plasma sodium measurement (moles/volume) 129 mmol/L 135-145 Serum or plasma potassium measurement (moles/volume) 3.8 mmol/L 3.6-5.0 Serum or plasma chloride measurement (moles/volume) 99 mmol/L 98-107 Carbon dioxide 22 mmol/L 21-32 Serum or plasma anion gap determination (moles/volume) 8 mmol/L 5-14 Serum or plasma urea nitrogen measurement (mass/volume ) 10 mg/dL 7-18 Serum or plasma creatinine measurement (mass/volume) 0.61 mg/dL 0.60-1.30 Serum or plasma urea nitrogen/creatinine mass ratio 16 NRG Serum or plasma creatinine measurement w ith calculation of estimated glomerular filtration rate > NRG Serum or plasma glucose measurement (mass/volume) 130 mg/dL 70-105 Serum or plasma calcium measurement (mass/volume) 7.3 mg/dL 8.5-10.1 RED CELLS LEUKO REDUCED AS1 - 06/13/19 1 1:15 RED CELLS LEUKO REDUCED AS1 T RANSFUSED 06/13/19 1231 NRG Blood type T Indirect antibody screen pa ashwin - 06/13/19 11:15 WRISTBAND NUMBER [id number] NRG ABO+Rh group OP NRG Blood group antibody screen NEGATIVE NR G Complete blood count (CBC) with automate d white blood cell (WBC) differential - 06/14/19 08:50 Blood leukocytes automated count (number/volume) 2.8 10*3/uL 4.3-11.0 Blood erythrocytes automated count (number/volume) 3.48 10*6/uL 4.35-5.85 Venous blood hemoglobin measurement (mass/volume) 9.1 g/dL 11.5-16.0 Blood hematocrit (volume fraction) 29 % 35-52 Automated erythrocyte mean corpuscular volume 85 [ foz_us] 80-99 Automated erythrocyte mean corpuscular h emoglobin (mass per erythrocyte) 26 pg 25-34 Automated erythrocyte mean corpuscular h emoglobin concentration measurement (mass/volume) 31 g/dL 32-36 Automated erythrocyte distribution width ratio 20. 9 % 10.0- 14.5 Automated blood platelet count (count/volume) 310 10*3/uL 130-400 Automated blood platelet mean volume measurement 9.2 [foz_us] 7.4-10.4 Automated blood neutrophils/100 leukocytes 35 % 42-75 Automated blood lymphocytes/100 leukocytes 33 % 12-44 Blood monocytes/100 leukocytes 29 % 0-12 Automated blood eosinophils/100 leukocytes 3 % 0-10 Automated blood basophils/100 leukocytes 0 % 0-10 Blood neutrophils automated count (number/volume) 1.0 10*3 1.8-7.8 Blood lymphocytes automated count (number/volume) 0.9 10*3 1.0-4.0 Blood monocytes automated count (number/volume) 0. 8 10*3 0.0-1.0 Automated eosinophil count 0.1 10*3/uL 0 .0-0.3 Automated blood basophil count (count/volume) 0.0 10*3/uL 0.0-0.1 Blood blood smear finding identification by light micr oscopy YES [facility] Comprehensive metabolic panel - 06/14/19 08:50 Serum or plasma sodium measurement (moles/volume) 132 mmol/L 135-145 Serum or plasma potassium measurement (moles/volume) 3.6 mmol/L 3.6-5.0 Serum or plasma chloride measurement (moles/volume) 102 mmol/L 98-107 Carbon dioxide 24 mmol/L 21-32 Serum or plasma anion gap determination (moles/volume) 6 mmol/L 5-14 Serum or plasma urea nitrogen measurement (mass/volume ) 10 mg/dL 7-18 Serum or plasma creatinine measurement (mass/volume) 0.55 mg/dL 0.60-1.30 Serum or plasma urea nitrogen/creatinine mass ratio 18 NRG Serum or plasma creatinine measurement w ith calculation of estimated glomerular filtration rate > NRG Serum or plasma glucose measurement (mass/volume) 98 mg/dL 70-105 Serum or plasma calcium measurement (mass/volume) 7.7 mg/dL 8.5-10.1 Serum or plasma total bilirubin measurement (mass/volu me) 0.3 mg/dL 0.1-1.0 Serum or plasma alkaline phosphatase miguel angel surement (enzymatic activity/volume) 63 U/L 40-136 Serum or plasma aspartate aminotransfera se measurement (enzymatic activity/volume) 17 U/L 5-34 Serum or plasma alanine aminotransferase measurement (enzymatic activity/volume) 6 U/L 0-55 Serum or plasma protein measurement (mass/volume) 4.3 g/dL 6.4-8.2 Serum or plasma albumin measurement (mass/volume) 2.2 g/dL 3.2-4.5 CALCIUM CORRECTED 9.1 mg/dL 8.5-10.1 Methicillin resistant Staphylococcus aur eus (MRSA) screening culture - 06/14/19 16:56 Methicillin resistant Staphylococcus aureus (MRSA) scr eening culture NEG [facility] [id number] - 06/24/19 14:55 [id number] SPECIMEN AVAILABLE [facility] COVID-19 - 08/02/19 09:37 SARS-CoV-2 RNA NEGATIVE NL: NEGATIVE Complete blood count (CBC) with automate d white blood cell (WBC) differential - 09/21/19 19:00 Blood leukocytes automated count (number/volume) 4.9 10*3/uL 4.3-11.0 Blood erythrocytes automated count (number/volume) 2.44 10*6/uL 4.35-5.85 Venous blood hemoglobin measurement (mass/volume) 7.2 g/dL 11.5-16.0 Blood hematocrit (volume fraction) 23 % 35-52 Automated erythrocyte mean corpuscular volume 95 [ foz_us] 80-99 Automated erythrocyte mean corpuscular h emoglobin (mass per erythrocyte) 30 pg 25-34 Automated erythrocyte mean corpuscular h emoglobin concentration measurement (mass/volume) 31 g/dL 32-36 Automated erythrocyte distribution width ratio 16. 8 % 10.0- 14.5 Automated blood platelet count (count/volume) 271 10*3/uL 130-400 Automated blood platelet mean volume measurement 9.1 [foz_us] 7.4-10.4 Automated blood neutrophils/100 leukocytes 67 % 42-75 Automated blood lymphocytes/100 leukocytes 18 % 12-44 Blood monocytes/100 leukocytes 14 % 0-12 Automated blood eosinophils/100 leukocytes 1 % 0-10 Automated blood basophils/100 leukocytes 0 % 0-10 Blood neutrophils automated count (number/volume) 3.3 10*3 1.8-7.8 Blood lymphocytes automated count (number/volume) 0.9 10*3 1.0-4.0 Blood monocytes automated count (number/volume) 0. 7 10*3 0.0-1.0 Automated eosinophil count 0.1 10*3/uL 0 .0-0.3 Automated blood basophil count (count/volume) 0.0 10*3/uL 0.0-0.1 Blood lactic acid measurement (moles/vol ume) - 09/21/19 19:00 Blood lactic acid measurement (moles/volume) 1.86 mmol/L 0.50-2.00 Comprehensive metabolic panel - 09/21/19 19:00 Serum or plasma sodium measurement (moles/volume) 134 mmol/L 135-145 Serum or plasma potassium measurement (moles/volume) 3.9 mmol/L 3.6-5.0 Serum or plasma chloride measurement (moles/volume) 100 mmol/L 98-107 Carbon dioxide 23 mmol/L 21-32 Serum or plasma anion gap determination (moles/volume) 11 mmol/L 5-14 Serum or plasma urea nitrogen measurement (mass/volume ) 11 mg/dL 7-18 Serum or plasma creatinine measurement (mass/volume) 0.79 mg/dL 0.60-1.30 Serum or plasma urea nitrogen/creatinine mass ratio 14 NRG Serum or plasma creatinine measurement w ith calculation of estimated glomerular filtration rate > NRG Serum or plasma glucose measurement (mass/volume) 127 mg/dL 70-105 Serum or plasma calcium measurement (mass/volume) 8.6 mg/dL 8.5-10.1 Serum or plasma total bilirubin measurement (mass/volu me) 0.1 mg/dL 0.1-1.0 Serum or plasma alkaline phosphatase miguel angel surement (enzymatic activity/volume) 66 U/L 40-136 Serum or plasma aspartate aminotransfera se measurement (enzymatic activity/volume) 26 U/L 5-34 Serum or plasma alanine aminotransferase measurement (enzymatic activity/volume) 15 U/L 0-55 Serum or plasma protein measurement (mass/volume) 5.6 g/dL 6.4-8.2 Serum or plasma albumin measurement (mass/volume) 2.9 g/dL 3.2-4.5 CALCIUM CORRECTED 9.5 mg/dL 8.5-10.1 PT panel in platelet poor plasma by coag ulation assay - 09/21/19 19:00 Prothrombin time (PT) in platelet poor plasma by coagu lation assay 13.6 s 12.2-14.7 INR in platelet poor plasma or blood by coagulation as say 1.0 0.8-1.4 Activated partial thromboplastin time (a PTT) in platelet poor plasma bycoagulation assay - 09/21/19 19:00 Activated partial thromboplastin time (a PTT) in platelet poor plasma bycoagulation assay 44 s 24-35 Complete urinalysis with reflex to cultu re - 09/21/19 20:12 Urine color determination YELLOW NRG Urine clarity [...] 1.0 Urine leukocyte esterase detection by dipstick 1+ NEGATIVE Automated urine sediment erythrocyte cou nt by microscopy (number/high power field) NONE NRG Automated urine sediment leukocyte count by microscopy (number/high power field) [HPF] NRG Bacteria detection in urine sediment by light microsco py NEGATIVE NRG Crystals detection in urine sediment by light microsco py NONE NRG Casts detection in urine sediment by light microscopy NONE NRG Mucus detection in urine sediment by light microscopy NEGATIVE NRG Complete urinalysis with reflex to culture CULTURE PENDING NRG Encounters ACCT No. Visit Date/Time Discharge Status Pt. Type Provider Facility Loc./Unit Complaint [id number] 08/02/2019 10:00:00 Document Registration [id number] 08/10/2019 12:22:11 08/10/2019 23:59: 59 CLS Outpatient [facility] [id number] 07/27/2019 13:52:27 07/27/2019 23:59: 59 CLS Outpatient EITAN KRUGER [id number] 05/25/2019 10:45:15 05/25/2019 23:59: 59 CLS Outpatient [facility] [id number] 04/15/2019 15:27:43 04/15/2019 23:59: 59 CLS Outpatient EITAN KRUGER [id number] 04/15/2019 11:36:00 04/15/2019 23:59: 59 CLS Outpatient [facility] [id number] 09/03/2019 16:04:46 Document Registration [id number] 07/31/2019 09:52:53 Document Registration [id number] 07/30/2019 12:20:13 Document Registration [id number] 05/25/2019 10:37:09 Document Registration [id number] 04/15/2019 13:01:31 Document Registration [id number] 04/15/2019 13:01:30 Document Registration [id number] 04/15/2019 13:01:29 Document Registration [id number] 08/31/2019 09:23:00 020 23:59:59 CLS Outpatient BERTHA FRAUSTO, HUY [facility] ONC [id number] 06/17/2019 09:08:00 00:01:00 DIS Outpatient HUY STONE MD [facility] ONC [id number] 06/11/2019 20:00:00 15:15:00 DIS Inpatient LUCITA FRAUSTO, ZAIN Dukes [facility] 4TH SBO,METASTATIC [place] [id number] 05/24/2019 12:58:00 17:10:00 DIS Outpatient HUY STONE MD [facility] RAD ASCITES,CA OF RT BREAST ,SECONDARY CA OF BONE [id number] 05/22/2019 15:00:00 18:18:00 DIS Emergency WILFRED FRAUSTO, CADEN Zuleta [facility] ER FEVER 102 / NEHA [place] PT [id number] 05/12/2019 13:00:00 23:59:59 CLS Outpatient NICKIE PERDOMO DO [facility] RAD CANCER OF RT BREAST,SEC ONDARY CANCER OF BONE [id number] 05/12/2019 12:10:00 23:59:59 CLS Outpatient HUY STONE MD [facility] RAD CA OF RT BREAST,SECONDA RY CA OF BONE [id number] 05/11/2019 07:45:00 23:59:59 CLS Outpatient HUY STONE MD [facility] RAD CANCER OF RT BREAST,DIZ ZINESS [id number] 05/05/2019 17:14:00 12:30:00 DIS Inpatient HUY STONE MD [facility] 4TH N/V [id number] 04/28/2019 21:59:00 17:52:00 DIS Inpatient HUY STONE MD [facility] 4TH NAUSEA,VOMITING,BREAST CA [id number] 04/21/2019 10:57:00 22:00:00 DIS Inpatient HUY STONE MD [facility] 4TH SWB, NAUSEA, VOMITING, BREAST CANCER [id number] 04/18/2019 12:04:00 10:50:00 DIS Inpatient WILFREDO PAREDES Desirae [facility] 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, METAST ATIC BREAST CA [id number] 04/14/2019 12:38:00 23:59:59 CLS Outpatient NICKIE PERDOMO DO [facility] RAD ABD OSCITES [id number] 04/14/2019 07:01:00 23:59:59 CLS Outpatient TICO GALAN MD [facility] RAD RUQ PAIN [id number] 04/13/2019 19:02:00 22:48:00 DIS Emergency TICO GALAN MD [facility] ER ABD PAIN [id number] 04/02/2019 12:34:00 23:59:59 CLS Outpatient HUY STONE MD [facility] RAD CANCER OF RIGHT BREAST, SECONDARY CANCER OF BONE [id number] 2019 10:26:00 23:59:59 CLS Outpatient HUY STONE MD [facility] RAD CANCER OF RT BREAST [id number] 03/23/2019 14:52:00 23:59:59 CLS Outpatient HUY STONE MD [facility] RAD CANCER OF RT BREAST,DIPranav ALMAGUERNESS [id number] 03/01/2019 14:00:00 00:01:00 DIS Outpatient HUY STONE MD [facility] ONC [id number] 12/02/2018 15:28:00 00:01:00 DIS Outpatient HUY STONE MD [facility] ONC [id number] 09/02/2018 13:53:00 08:35:00 DIS Outpatient CAITLYN FRAUSTO, ERIC [facility] ONC [id number] 09/01/2018 08:17:00 019 00:01:00 DIS Outpatient HUY STONE MD [facility] ONC [id number] 05/13/2018 13:39:00 019 00:01:00 DIS Outpatient HUY STONE MD [facility] ONC [id number] 03/02/2018 10:55:00 018 10:56:00 DIS Outpatient HUY STONE MD [facility] ONC [id number] 09/21/2019 19:31:00 Document Registration
[2019-09-21] MEDS ORDERED: LORATADINE (CLARITIN) 10 MG TAB PO PRN (22:45)
[2019-09-21] MEDS ORDERED: IBUPROFEN 600 MG (MOTRIN) TAB PO PRN (22:45)
[2019-09-21] MEDS: HYDROcodone/APAP 5 MG/325 MG (LORTAB) TAB PO PRN (22:52)
[2019-09-21] MEDS: NS IV 1000 ML 1,000 ML IV SCH (22:52)
[2019-09-21] MEDS: ENOXAPARIN 40 MG/0.4 ML (LOVENOX) SYR SC SCH (22:53)
[2019-09-21] MEDS ORDERED: VANCOMYCIN 750 MG/VIAL IV ONE (22:58)
[2019-09-21] MEDS ORDERED: NS (IVPB) 500 ML ONE (22:58)
[2019-09-21] MEDS: VANCOMYCIN INJECTION 750 MG in NS (IVPB) 250 ML IV SCH (23:12)
[2019-09-21] MEDS: LACTATED RINGERS 1,000 ML IV SCH (23:28)
--- OUTSIDE RECORDS SUMMARY | 2019-09-21 23:43 | XMS REPORT | Continuity of Care Document ---
Demographics Preferred Language Unknown Marital Status Unknown Yazidism Affiliation Unknown Race Unknown Ethnic Group Unknown Author Organization Unknown Address Unknown Phone Unavailable Allergies Active Description Code Type Severity Reaction Onset Reported/Identified Relationship to Patient Clinical Status Yes ASPIRIN 69108162 DRUG N/A N/A Yes COMPAZINE 94228133 DRUG N/A N/A Yes PROCHLORPERAZINE [id number] DRUG N/A N/A Yes aspirin [id number] Drug Allergy Unknown N/A 01/13/2018 Yes morphine [id number] Drug Allergy Moderate Itching 04/18/2019 Yes prochlorperazine [id number] Drug Allergy Unknown N/A 06/11/2019 Medications There is no data. 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 03/02/2018 HUY STONE MD Ot Z79.899 OTHER ASSISTANT [employer] (CURRENT) DRUG THERAPY 03/02/2018 HUY STONE MD [...] 03/03/2018 HUY STONE MD Ot Z79.899 OTHER ASSISTANT [employer] (CURRENT) DRUG THERAPY 03/03/2018 HUY STONE MD [...] 04/13/2018 HUY STONE MD Ot Z79.899 OTHER SNF (CURRENT) DRUG THERAPY 04/13/2018 HUY STONE MD [...] 04/14/2018 HUY STONE MD Ot Z79.899 OTHER SNF (CURRENT) DRUG THERAPY 04/14/2018 HUY STONE MD [...] 05/31/2018 HUY STONE MD Ot Z79.899 OTHER ASSISTANT [employer] (CURRENT) DRUG THERAPY 05/31/2018 HUY STONE MD [...] 06/01/2018 HUY STONE MD, Ot Z79.899 OTHER SNF (CURRENT) DRUG THERAPY 06/01/2018 HUY STONE MD [...] 06/03/2018 HUY STONE MD Ot Z79.899 OTHER ASSIST[employer] (CURRENT) DRUG THERAPY 06/03/2018 HUY STONE MD [...] 06/04/2018 HUY STONE MD, Ot Z79.899 OTHER SNF (CURRENT) DRUG THERAPY 06/04/2018 HUY STONE MD, [...] 06/06/2018 HUY STONE MD Ot Z79.899 OTHER SNF (CURRENT) DRUG THERAPY 06/06/2018 HUY STONE MD [...] 07/08/2018 HUY STONE MD Ot Z79.899 OTHER SNF (CURRENT) DRUG THERAPY 07/08/2018 HUY STONE MD [...] 07/14/2018 HUY STONE MD Ot Z79.899 OTHER ASSIST[employer] (CURRENT) DRUG THERAPY 07/14/2018 HUY STONE MD [...] 08/05/2018 HUY STONE MD Ot Z79.899 OTHER ASSISTANT [employer] (CURRENT) DRUG THERAPY 08/05/2018 HUY STONE MD [...] 08/05/2018 HUY STONE MD Ot Z79.899 OTHER SNF (CURRENT) DRUG THERAPY 08/05/2018 HUY STONE MD [...] 08/17/2018 HUY STONE MD Ot Z79.899 OTHER SNF (CURRENT) DRUG THERAPY 08/17/2018 HUY STONE MD [...] 09/01/2018 HUY STONE MD Ot Z79.899 OTHER SNF (CURRENT) DRUG THERAPY 09/01/2018 HUY STONE MD [...] 09/03/2018 ERIC BRADY MD Ot Z79.899 OTHER ASSIST[employer] (CURRENT) DRUG THERAPY 09/03/2018 ERIC BRADY MD [...] 09/03/2018 ERIC BRADY MD Ot Z79.899 OTHER SNF (CURRENT) DRUG THERAPY 09/03/2018 ERIC BRADY MD [...] 09/03/2018 HUY STONE MD Ot Z79.899 OTHER SNF (CURRENT) DRUG THERAPY 09/03/2018 HUY STONE MD [...] 09/04/2018 HUY STONE MD Ot Z79.899 OTHER ASSIST[employer] (CURRENT) DRUG THERAPY 09/04/2018 HUY STONE MD [...] 09/23/2018 HUY STONE MD Ot Z79.899 OTHER SNF (CURRENT) DRUG THERAPY 09/23/2018 HUY STONE MD [...] 10/16/2018 HUY STONE MD Ot Z79.899 OTHER SNF (CURRENT) DRUG THERAPY 10/16/2018 HUY STONE MD [...] 10/20/2018 HUY STONE MD Ot Z79.899 OTHER ASSISTANT [employer] (CURRENT) DRUG THERAPY 10/20/2018 HUY STONE MD [...] 12/02/2018 HUY STONE MD Ot Z79.899 OTHER ASSISTANT [employer] (CURRENT) DRUG THERAPY 12/02/2018 HUY STONE MD [...] 12/03/2018 HUY STONE MD Ot Z79.899 OTHER ASSISTANT [employer] (CURRENT) DRUG THERAPY 12/03/2018 HUY STONE MD [...] 12/09/2018 HUY STONE MD Ot Z79.899 OTHER ASSISTANT [employer] (CURRENT) DRUG THERAPY 12/09/2018 HUY STONE MD [...] 12/24/2018 HUY STONE MD Ot Z79.899 OTHER ASSISTANT [employer] (CURRENT) DRUG THERAPY 12/24/2018 HUY STONE MD [...] 01/11/2019 HUY STONE MD Ot Z79.899 OTHER ASSISTANT [employer] (CURRENT) DRUG THERAPY 01/11/2019 HUY STONE MD [...] 03/09/2019 HUY STONE MD Ot Z79.899 OTHER ASSISTANT [employer] (CURRENT) DRUG THERAPY 03/09/2019 HUY STONE MD [...] 03/11/2019 HUY STONE MD Ot Z79.899 OTHER ASSISTANT [employer] (CURRENT) DRUG THERAPY 03/11/2019 HUY STONE MD [...] 03/22/2019 HUY STONE MD Ot Z79.899 OTHER SNF (CURRENT) DRUG THERAPY 03/22/2019 HUY STONE MD [...] 03/22/2019 HUY STONE MD Ot Z79.899 OTHER SNF (CURRENT) DRUG THERAPY 03/22/2019 HUY STONE MD [...] 03/23/2019 HUY STONE MD Ot Z79.899 OTHER SNF (CURRENT) DRUG THERAPY 03/23/2019 HUY STONE MD [...] 2019 HUY STONE MD Ot Z79.899 OTHER ASSIST[employer] (CURRENT) DRUG THERAPY 2019 HUY STONE MD [...] 04/12/2019 HUY STONE MD Ot Z79.899 OTHER ASSISTANT [employer] (CURRENT) DRUG THERAPY 04/12/2019 HUY STONE MD [...] 04/12/2019 HUY STONE MD Ot Z79.899 OTHER SNF (CURRENT) DRUG THERAPY 04/12/2019 HUY STONE MD, Ot 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 04/13/2019 HUY STONE MD Ot Z79.899 OTHER ASSISTANT [employer] (CURRENT) DRUG THERAPY 04/13/2019 HUY STONE MD, [...] 04/14/2019 HUY STONE MD Ot Z79.899 OTHER SNF (CURRENT) DRUG THERAPY 04/14/2019 HUY STONE MD, [...] 04/14/2019 HUY STONE MD Ot Z79.899 OTHER ASSISTANT [employer] (CURRENT) DRUG THERAPY 04/14/2019 HUY STONE MD, [...] 04/14/2019 HUY STONE MD, Ot Z79.899 OTHER SNF (CURRENT) DRUG THERAPY 04/14/2019 HUY STONE MD, [...] 04/17/2019 HUY STONE MD, Ot Z79.899 OTHER ASSISTANT [employer] (CURRENT) DRUG THERAPY 04/17/2019 HUY STONE MD, [...] 04/17/2019 HUY STONE MD, Ot Z79.899 OTHER ASSISTANT [employer] (CURRENT) DRUG THERAPY 04/17/2019 HUY STONE MD, [...] 04/17/2019 HUY STONE MD, Ot Z79.899 OTHER SNF (CURRENT) DRUG THERAPY 04/17/2019 HUY STONE MD, [...] 04/17/2019 HUY STONE MD, Ot Z79.899 OTHER ASSISTANT [employer] (CURRENT) DRUG THERAPY 04/17/2019 HUY STONE MD, [...] 04/17/2019 HUY STONE MD, Ot Z79.899 OTHER ASSISTANT [employer] (CURRENT) DRUG THERAPY 04/17/2019 HUY STONE MD, [...] 04/19/2019 HUY STONE MD, Ot Z79.899 OTHER ASSISTANT [employer] (CURRENT) DRUG THERAPY 04/19/2019 HUY STONE MD, [...] 04/21/2019 HUY STONE MD Ot Z79.899 OTHER ASSISTANT [employer] (CURRENT) DRUG THERAPY 04/21/2019 HUY STONE MD, Ot 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 79 ACQUIRED ABSENCE OF OTHER GENITAL ORGAN( 04/21/2019 HUY SOTNE MD, Ot C50.311 MALIG NEOPLM OF LOWER-INNER [...] 04/22/2019 HUY STONE MD, Ot Z79.899 OTHER SNF (CURRENT) DRUG THERAPY 04/22/2019 HUY STONE MD, [...] 04/29/2019 HUY STONE MD, Ot Z79.899 OTHER SNF (CURRENT) DRUG THERAPY 04/29/2019 HUY STONE MD, [...] 04/29/2019 HUY STONE MD, Ot Z79.899 OTHER SNF (CURRENT) DRUG THERAPY 04/29/2019 HUY STONE MD, [...] 04/30/2019 HUY STONE MD, Ot Z79.899 OTHER ASSIST[employer] (CURRENT) DRUG THERAPY 04/30/2019 HUY STONE MD, [...] K76.89 OTHER SPECIFIED DISEASES OF LIVER 04/30/2019 TCIO GALAN MD Ot K82.8 OTHER SPECIFIED DISEASES [...] 05/04/2019 HUY STONE MD, Ot Z79.899 OTHER SNF (CURRENT) DRUG THERAPY 05/04/2019 HUY STONE MD, [...] 05/04/2019 HUY STONE MD, Ot Z79.899 OTHER SNF (CURRENT) DRUG THERAPY 05/04/2019 HUY STONE MD, Ot Z85. 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 05/05/2019 HUY STONE MD, Ot Z79.899 OTHER SNF (CURRENT) DRUG THERAPY 05/05/2019 HUY STONE MD, [...] 05/05/2019 HUY STONE MD, Ot Z79.899 OTHER SNF (CURRENT) DRUG THERAPY 05/05/2019 HUY STONE MD, [...] IMM 05/06/2019 HUY STONE MD, Ot Z79.891 SNF (CURRENT) USE OF OPIATE ANALGE 05/06/2019 HUY STONE MD, Ot Z79.899 OTHER SNF (CURRENT) DRUG THERAPY 05/06/2019 HUY STONE MD, [...] 05/10/2019 HUY STONE MD, Ot Z79.899 OTHER SNF (CURRENT) DRUG THERAPY 05/10/2019 HUY STONE MD, [...] 05/10/2019 HUY STONE MD Ot Z79.899 OTHER SNF (CURRENT) DRUG THERAPY 05/10/2019 HUY STONE MD, [...] 05/11/2019 HUY STONE MD Ot Z79.899 OTHER SNF (CURRENT) DRUG THERAPY 05/11/2019 HUY STONE MD, [...] 05/11/2019 HUY STONE MD, Ot Z79.899 OTHER SNF (CURRENT) DRUG THERAPY 05/11/2019 HUY STONE MD, [...] 05/11/2019 HUY STONE MD Ot Z79.899 OTHER ASS[employer] (CURRENT) DRUG THERAPY 05/11/2019 HUY STONE MD, [...] 05/11/2019 HUY STONE MD, Ot Z79.899 OTHER ASSISTANT [employer] (CURRENT) DRUG THERAPY 05/11/2019 HUY STONE MD, [...] Ot Z98.890 OTHER SPECIFIED POSTPROCEDURAL STATES 06/02/2019 ACDEN HARDIN MD, Ot C50.919 MALIGNANT NEOPLASM OF [...] 06/03/2019 HUY STONE MD Ot Z79.899 OTHER ASSIST[employer] (CURRENT) DRUG THERAPY 06/03/2019 HUY STONE MD [...] 06/03/2019 HUY STONE MD Ot Z79.899 OTHER SNF (CURRENT) DRUG THERAPY 06/03/2019 HUY STONE MD [...] 51 SECONDARY MALIGNANT NEOPLASM OF BONE 06/03/2019 YOUNG HARRIS DO, NICKIE Zuleta Ot R18. 8 OTHER [...] 06/11/2019 HUY STONE MD, Ot Z79.899 OTHER SNF (CURRENT) DRUG THERAPY 06/11/2019 HUY STONE MD, [...] 06/20/2019 HUY STONE MD, Ot Z79.899 OTHER ASSIST[employer] (CURRENT) DRUG THERAPY 06/20/2019 HUY STONE MD, [...] 06/22/2019 HUY STONE MD, Ot Z79.899 OTHER SNF (CURRENT) DRUG THERAPY 06/22/2019 HUY STONE MD, Ot Z90. 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 8 OTHER ASCITES 06/28/2019 HUY STONE MD Ot Z79.899 OTHER ASSIST[employer] (CURRENT) DRUG THERAPY 06/28/2019 HUY STONE MD [...] 07/08/2019 HUY STONE MD Ot Z79.899 OTHER SNF (CURRENT) DRUG THERAPY 07/08/2019 HUY STONE MD [...] 07/28/2019 HUY STONE MD, Ot Z79.899 OTHER ASSIST[employer] (CURRENT) DRUG THERAPY 07/28/2019 HUY STONE MD, [...] NEOPLM OF LOWER-INNER QUADRANT OF 07/28/2019 HUY STOEN MD Ot C78. 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 8 OTHER ASCITES 07/28/2019 HUY STONE MD, Ot Z79.899 OTHER SNF (CURRENT) DRUG THERAPY 07/28/2019 HUY STONE MD, Ot Z90. 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 8 OTHER ASCITES 08/05/2019 HUY STONE MD, Ot Z79.899 OTHER ASSIST[employer] (CURRENT) DRUG THERAPY 08/05/2019 HUY STONE MD, [...] 08/10/2019 HUY STONE MD Ot Z79.899 OTHER ASSISTANT [employer] (CURRENT) DRUG THERAPY 08/10/2019 HUY STONE MD, [...] 08/12/2019 HUY STONE MD Ot Z79.899 OTHER ASSISTANT [employer] (CURRENT) DRUG THERAPY 08/12/2019 HUY STONE MD [...] 09/02/2019 HUY STONE MD Ot Z79.899 OTHER ASSISTANT [employer] (CURRENT) DRUG THERAPY 09/02/2019 BERTHA FRAUSTO, HUY Goodwin Z90. 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 79 ACQUIRED ABSENCE OF OTHER GENITAL ORGAN( Procedures Code Description Performed By Per formed On [id number] DR GRANADOS OF PERITONEAL CAVITY, PERCUTANE 04/19/2019 [id number] IN SERTION OF INFUSION DEV INTO SUP VENA 04/20/2019 [id number] IN SERT OF TUNNEL VAD INTO CHEST SUBCU/FA 04/20/[id number] GRANADOS OF PERITONEAL CAVITY WITH DRAIN 06/12/2019 [id number] IN SERTION OF TUNNEL VAD INTO ABD [...] OF GROWTH Isolated NRG Bacterial blood culture [id number] NRG Bacterial blood culture - 04/28/19 20:58 [...] culture - 04/29/19 02:20 Bacterial urine culture [id number] NRG COLONY COUNT 50,000 CFU/ML NRG FTX;REPORTABLE [...] pa ashwin - 04/29/19 08:57 WRISTBAND NUMBER [id number] NRG ABO+Rh group OP NRG Blood group [...] OF GROWTH Isolated NRG Bacterial blood culture [id number] NRG FREE TEXT ENTRY 2 PRELIM RAPID [...] culture - 05/22/19 17:31 Bacterial urine culture [id number] NRG COLONY COUNT >100,000/ML NRG FTX;REPORTABLE REPORTED BY [facility] NRG FREE TEXT ENTRY 2 PRELIM RAPID ID BY [facility] 05-23-19, 1 [id number] NRG FREE TEXT ENTRY 3 PRELIM RAPID ID BY [facility] 05-23-19,13 17 NRG FREE TEXT ENTRY [...] pa ashwin - 06/13/19 11:15 WRISTBAND NUMBER [id number] NRG ABO+Rh group OP NRG Blood group [...] finding identification by light micr oscopy YES [facility] Comprehensive metabolic panel - 06/14/19 08:50 [...] Staphylococcus aureus (MRSA) scr eening culture NEG [facility] [id number] - 06/24/19 14:55 [id number] SPECIMEN AVAILABLE [facility] INHOUSE COVID-19 - 08/02/19 09:37 SARS-CoV-2 [...] with reflex to culture CULTURE PENDING NRG Blood lactic acid measurement (moles/vol ume) - 09/21/19 22:56 Blood lactic acid measurement (moles/volume) 0.51 mmol/L 0.50-2.00 Encounters ACCT No. Visit Date/Time Discharge Status Pt. Type Provider Facility Loc./Unit Complaint [id number] 08/02/2019 10:00:00 Document Registration [id number] 08/10/2019 12:22:11 08/10/2019 23:59: 59 [facility] Outpatient Monika Home [id number] 07/27/2019 13:52:27 07/27/2019 23:59: 59 [facility] Outpatient EITAN KRUGER [id number] 05/25/2019 10:45:15 05/25/2019 23:59: 59 [facility] Monika Home [id number] 04/15/2019 15:27:43 04/15/2019 23:59: 59 [facility] EITAN KRUGER [id number] 04/15/2019 11:36:00 04/15/2019 23:59: 59 [facility] Outpatient Home Frank [id number] 09/03/2019 16:04:46 Document Registration [id number] 07/31/2019 09:52:53 Document Registration [id number] 07/30/2019 12:20:13 Document Registration [id number] 05/25/2019 10:37:09 Document Registration [id number] 04/15/2019 13:01:31 Document Registration [id number] 04/15/2019 13:01:30 Document Registration [id number] 04/15/2019 13:01:29 Document Registration [id number] 08/31/2019 09:23:00 23:59:59 CLS Outpatient HUY STONE MD Via [facility] ONC [id number] 06/17/2019 09:08:00 00:01:00 DIS Outpatient HUY STONE MD Via [facility] ONC [id number] 06/11/2019 20:00:00 15:15:00 DIS Inpatient ZAIN LANDRUM MD Via [facility] 4TH SBO,METASTATIC CA [id number] 05/24/2019 12:58:00 17:10:00 DIS Outpatient HUY STONE MD Via [facility] RAD ASCITES,CA OF RT BREAST ,SECONDARY CA OF BONE [id number] 05/22/2019 15:00:00 18:18:00 DIS Emergency CADEN HARDIN MD Via [facility] ER FEVER 102 / NEHA MO PT [id number] 05/12/2019 13:00:00 23:59:59 CLS Outpatient NICKIE PERDOMO DO Via [facility] RAD CANCER OF RT BREAST,SEC ONDARY CANCER OF BONE [id number] 05/12/2019 12:10:00 23:59:59 CLS Outpatient HUY STONE MD Via [facility] RAD CA OF RT BREAST,SECONDA RY CA OF BONE [id number] 05/11/2019 07:45:00 23:59:59 CLS Outpatient HUY STONE MD Via [facility] RAD CANCER OF RT BREAST,DIZ ZINESS [id number] 05/05/2019 17:14:00 12:30:00 DIS Inpatient HUY STONE MD Via [facility] 4TH N/V [id number] 04/28/2019 21:59:00 17:52:00 DIS Inpatient HUY STONE MD Via [facility] 4TH NAUSEA,VOMITING,BREAST CA [id number] 04/21/2019 10:57:00 22:00:00 DIS Inpatient HUY STONE MD Via [facility] 4TH SWB, NAUSEA, VOMITING, BREAST CANCER [id number] 04/18/2019 12:04:00 10:50:00 DIS Inpatient WILFREDO PAREDES Desirae Vi a [facility] 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, METAST ATIC BREAST CA [id number] 04/14/2019 12:38:00 23:59:59 CLS Outpatient NICKIE PERDOMO DO Via [facility] RAD ABD OSCITES [id number] 04/14/2019 07:01:00 23:59:59 CLS Outpatient TICO GALAN MD Via [facility] RAD RUQ PAIN [id number] 04/13/2019 19:02:00 22:48:00 DIS Emergency TICO GALAN MD Via [facility] ER ABD PAIN [id number] 04/02/2019 12:34:00 23:59:59 CLS Outpatient HUY STONE MD Via [facility] RAD CANCER OF RIGHT BREAST, SECONDARY CANCER OF BONE [id number] 2019 10:26:00 23:59:59 CLS Outpatient HUY STONE MD Via [facility] RAD CANCER OF RT BREAST [id number] 03/23/2019 14:52:00 23:59:59 CLS Outpatient HUY STONE MD Via [facility] RAD CANCER OF RT BREAST,DIZ ZINESS [id number] 03/01/2019 14:00:00 00:01:00 DIS Outpatient HUY STONE MD Via [facility] ONC [id number] 12/02/2018 15:28:00 019 00:01:00 DIS Outpatient HUY STONE MD Via [facility] ONC [id number] 09/02/2018 13:53:00 019 08:35:00 DIS Outpatient CAITLYN FRAUSTO, ERIC lucia [facility] ONC [id number] 09/01/2018 08:17:00 019 00:01:00 DIS Outpatient HUY STONE MD Via [facility] ONC [id number] 05/13/2018 13:39:00 019 00:01:00 DIS Outpatient HUY STONE MD Via [facility] ONC [id number] 03/02/2018 10:55:00 018 10:56:00 DIS Outpatient HUY STONE MD Via [facility] ONC [id number] 09/21/2019 19:31:00 Document Registration
[2019-09-22] VITALS (18 sets, daily range): BP systolic 120–151; BP diastolic 65–89
[2019-09-22] MEDS: VANCOMYCIN INJECTION 750 MG in NS (IVPB) 250 ML IV SCH (00:22)
[2019-09-22] MEDS: fentaNYL INJECTION 100 MCG/2 ML AMP IV PRN ×3 (02:50→23:07)
[2019-09-22] MEDS ORDERED: RT-ALBUTEROL SULF 2.5 MG/3 ML PRE-MIX VIAL INH PRN ×2 (03:15→14:00)
[2019-09-22 03:46] LABS: BASOPHILS % (AUTO) 0 % (0-10); EOSINOPHILS # (AUTO) 0.1 10^3/uL (0.0-0.3); EOSINOPHILS % (AUTO) 2 % (0-10); HEMATOCRIT 23 % (35-52); LYMPHOCYTES % (AUTO) 25 % (12-44); MEAN CORPUSCULAR HEMOGLOBIN 29 PG (25-34); MEAN CORPUSCULAR HGB CONC 30 G/DL (32-36); MEAN CORPUSCULAR VOLUME 96 FL (80-99); MEAN PLATELET VOLUME 9.5 FL (7.4-10.4); MONOCYTES # (AUTO) 0.7 X 10^3 (0.0-1.0); MONOCYTES % (AUTO) 17 % (0-12); NEUTROPHILS # (AUTO) 2.3 X 10^3 (1.8-7.8); NEUTROPHILS % (AUTO) 56 % (42-75); PLATELET COUNT 265 10^3/uL (130-400); WHITE BLOOD COUNT 4.1 10^3/uL (4.3-11.0)
[2019-09-22 03:59] LABS: ALBUMIN 2.7 GM/DL (3.2-4.5)
[2019-09-22 04:00] LABS: CHLORIDE 108 MMOL/L (98-107); POTASSIUM 3.8 MMOL/L (3.6-5.0); SODIUM 140 MMOL/L (135-145)
[2019-09-22 04:01] LABS: CALCIUM 8.5 MG/DL (8.5-10.1)
[2019-09-22 04:02] LABS: GLUCOSE 99 MG/DL (70-105); TOTAL PROTEIN 5.3 GM/DL (6.4-8.2)
[2019-09-22 04:03] LABS: CARBON DIOXIDE 20 MMOL/L (21-32)
[2019-09-22 04:04] LABS: BILIRUBIN,TOTAL 0.1 MG/DL (0.1-1.0)
[2019-09-22 04:05] LABS: ALKALINE PHOSPHATASE 67 U/L (40-136)
[2019-09-22 04:06] LABS: CREATININE SERUM 0.71 MG/DL (0.60-1.30); GFR ESTIMATED > 60
[2019-09-22 04:07] LABS: BUN/CREATININE RATIO 11
[2019-09-22 04:08] LABS: ALANINE AMINOTRANSFERASE 12 U/L (0-55)
[2019-09-22] MEDS: LACTATED RINGERS 1,000 ML IV SCH (04:11)
[2019-09-22] MEDS: NS IV 1000 ML 1,000 ML IV SCH ×4 (05:22→17:44)
[2019-09-22] MEDS: morphine INJ 4 MG/ML 1 ML (VIAL/SYRINGE) IV PRN (05:25)
[2019-09-22] MEDS: diphenhydrAMINE 25 MG TAB (BENADRYL) PO PRN (05:25)
[2019-09-22] MEDS: ONDANSETRON 4 MG/2 ML (SDV) Z0FRAN IVP PRN (05:29)
--- NOTE | 2019-09-22 05:39 | Pulmonary Consultation ---
History of Present Illness History of Present Illness Date Seen by Provider: Sep 22, 2019 Time Seen by Provider: 05:34 Date of Admission History of Present Illness 59yo with hx UTI and current left ureter stent she also has metastatic breast cancer currently undergoing chemotherapy presented to ED secondary to fever and body aches worsening over the last 2-3 days. She was recently treated with Cipro for UTI. She denies cough chills nausea vomiting abdominal pain dysuria diarrhea constipation. She has a right sided peritoneal catheter or draining her recurrent abdominal ascites. She says her drained 2 days ago. Allergies and Home Medications Allergies Coded Allergies: morphine (Verified Allergy, Intermediate, Itching, 04/18/19) aspirin (Verified Allergy, Unknown, 01/13/18) prochlorperazine (Verified Allergy, Unknown, 06/11/19) Tolerates Phenergan well Home Medications Acetaminophen 500 Mg Tablet, 500 MG PO Q6H PRN for PAIN-MILD (1-4), (Reported) Dextroamphetamine/Amphetamine 30 Mg Cap.er.24h, 30 MG PO DAILY, (Reported) Diphenhydramine HCl 25 Mg Capsule, 50 MG PO Q4H PRN for ALLERGY SYMPTOMS, (Reported) Fluoxetine HCl 40 Mg Capsule, 40 MG PO DAILY Prescribed by: ASYA STEPHENS on 05/05/191814 Gabapentin 300 Mg Capsule, 300 MG PO HS, (Reported) Ibuprofen 200 Mg Tablet, 400 MG PO Q6H PRN for PAIN-MILD (1-4), (Reported) Levofloxacin 750 Mg Tablet, 750 MG PO DAILY Prescribed by: CADEN HARDIN on 05/22/191808 Levothyroxine Sodium 25 Mcg Tablet, 25 MCG PO DAILY, (Reported) Omeprazole 40 Mg Capsule.dr, 40 MG PO HS, (Reported) Oxycodone HCl/Acetaminophen 1 Each Tablet, 1 TAB PO HS PRN for PAIN-MODERATE (5- 7), (Reported) Promethazine HCl 25 Mg Tablet, 25 MG PO Q6H PRN for NAUSEA/VOMITING Prescribed by: ASYA STEPHENS on 05/05/191805 Sucralfate 1 Gm Tablet, 1 GM PO ACHS Prescribed by: MITCH CROCKETT on 05/06/19 1059 Zolpidem Tartrate 12.5 Mg Tab.mphase, 12.5 MG PO HS, (Reported) Past Cldeftv-Jyrpco-Zscjjl Hx Patient Social History Alcohol Use: Denies Use Recreational Drug Use: No Smoking Status: Never a Smoker 2nd Hand Smoke Exposure: No Recent Foreign Travel: No Contact w/Someone Who Travel: No Recent Infectious Disease Expo: No Recent Hopitalizations: No Physical Abuse: No Sexual Abuse: No Mistreated: No Fear: No Immunizations Up To Date Tetanus Booster (TDap): Unknown PED Vaccines UTD: Yes Seasonal Allergies Seasonal Allergies: No Past Medical History Surgeries: Yes (LUMPECTOMY AND MASECTOMY WITH RECONSTRUCTION ON RIGHT) Breast, Section, 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 Respiratory: Yes Asthma Currently Using CPAP: No Currently Using BIPAP: No Cardiac: Yes Hypertension 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: 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 Genitourinary: Yes (possible left ureteral obstruction) Gastrointestinal: Yes Gastroesophageal Reflux, Gall Bladder Disease Musculoskeletal: Yes (metastases to bone) Endocrine: Yes Hypothyroidsim HEENT: No Cancer: Yes (RECENT METS DIAGNOSIS) Bone, Breast Did You Recieve Any Treatments: Yes What Type of Treatment Did You: Chemotherapy Psychosocial: Yes ADD/ADHD, Sleep Difficulties, Depression Integumentary: No Blood Disorders: No Family Medical History Asthma 19 FATHER G8 BROTHER G8 SISTER Cardiovascular disease 19 MOTHER FH: skin cancer 19 FATHER G8 BROTHER Myocardial infarction G8 SISTER (X2) No Pertinent Family Hx Review of Systems Time Seen by Provider: 05:43 Sepsis Event Evaluation Height, Weight, BMI Height: '" Weight: lbs. oz. kg; 26.46 BMI Method: Exam Exam Vital Signs Date Time Temp Pulse Resp B/P (MAP) Pulse Ox O2 Delivery O2 Flow Rate FiO2 09/22/19 04:08 36.4 09/22/19 04:08 Room Air 09/22/19 04:00 85 21 140/80 (100) 94 Room Air 09/22/19 03:04 80 96 21 09/22/19 03:00 85 20 138/78 (98) 94 Room Air 09/22/19 02:00 80 17 136/81 (99) 96 Room Air 09/22/19 01:00 85 17 127/71 (89) 95 Room Air 09/22/19 01:00 86 09/22/19 00:30 80 14 120/70 (87) 96 Room Air 09/22/19 00:00 35.3 09/22/19 00:00 Room Air 09/22/19 00:00 84 121/70 (87) 93 Room Air 09/21/19 23:30 78 130/74 (92) 99 Room Air 09/21/19 23:15 85 20 130/86 (101) 98 Room Air 09/21/19 23:13 36.7 85 16 130/86 98 Room Air 09/21/19 23:00 89 20 137/79 (98) 97 Room Air 09/21/19 22:47 80 09/21/19 22:45 80 20 119/68 (85) 99 Room Air 09/21/19 22:17 89 16 112/82 99 Room Air 09/21/19 20:43 82 22 144/84 (104) 94 Room Air 09/21/19 19:13 36.9 89 20 147/95 (112) 95 09/21/19 19:13 95 Room Air 09/21/19 18:28 36.9 89 20 147/95 (112) 95 I & O 09/22/19 07:00 Intake Total 1500 ml Balance 1500 ml Height & Weight Height: '" Weight: lbs. oz. kg; 26.46 BMI Method: General Appearance: Anxious, Chronically ill, Moderate Distress HEENT: PERRL/EOMI, TMs Normal, Pharynx Normal, Moist Mucous Membranes Neck: Full Range of Motion, Normal Inspection, Non Tender, Supple Respiratory: Lungs Clear, Normal Breath Sounds, No Accessory Muscle Use, No Respiratory Distress Cardiovascular: Regular Rate, Rhythm, No Edema, Normal Peripheral Pulses Capillary Refill: Less Than 3 Seconds Peripheral Pulses: 2+ Radial Pulses (R), 2+ Radial Pulses (L) Extremity: Normal Capillary Refill, Normal Inspection, Normal Range of Motion, Non Tender, No Pedal Edema Neurologic/Psychiatric: Alert, Oriented x3, No Motor/Sensory Deficits Results Lab Laboratory Tests 09/21/19 19:00 09/22/19 03:06 Assessment/Plan Assessment/Plan UTI -Continue Vanco and Cefepime -IVF Anemia -Check occult stool -Start protonix -Check H&H Q12 CHRIS RICHARD DO Sep 22, 2019 05:39
[2019-09-22 06:32] LABS: HEMOGLOBIN 6.9 G/DL (11.5-16.0)
[2019-09-22] MEDS ORDERED: NS IV 500 ML 500 ML IV SCH (06:45)
[2019-09-22] MEDS: SENNA W/DOCUSATE (SENOKOT S) TABLET PO SCH ×2 (07:39→21:13)
[2019-09-22] MEDS: polyethylene glycoL POWDER 17 GM (MIRALAX) PACK PO SCH ×2 (07:39→21:13)
[2019-09-22] MEDS ORDERED: CEFEPIME INJECTION 2,000 MG in WATER (STERILE) FOR INJECTION 20 ML IV SCH (09:00)
--- NOTE | 2019-09-22 09:21 | NUR ---
REPORT RECEIVED FROM AMANUEL BAKERY MACHINE MECHANIC SUPERVISOR
--- NOTE | 2019-09-22 09:30 | NUR ---
PT ARRIVED TO FLOOR VIA WC WITH STAFF. PT DENIES NEEDS AT THIS TIME, PT HELPED TO BA AND TO BED, CALL LIGHT IN REACH. PT ORIENTED TO ROOM, PT INSTRUCTED TO CALL OUT BEFORE GETTING UP. WILL CONTINUE TO MONITOR.
[2019-09-22] MEDS: PANTOPRAZOLE 40 MG (PROTONIX) VIAL IV SCH ×2 (10:13→21:08)
[2019-09-22] MEDS: CEFEPIME INJECTION 2,000 MG in WATER (STERILE) FOR INJECTION 20 ML IV SCH ×2 (10:32→23:03)
[2019-09-22] MEDS ORDERED: NS IV 500 ML 500 ML ONE (11:00)
[2019-09-22] MEDS ORDERED: GABA300S2 PO (11:34)
[2019-09-22] MEDS ORDERED: DEXA4TAB PO ×2 (11:34)
[2019-09-22] MEDS ORDERED: FLUO40CA PO (11:34)
[2019-09-22] MEDS ORDERED: OMEP40CA27 PO (11:34)
[2019-09-22] MEDS ORDERED: SUCR1TAB PO (11:34)
[2019-09-22] MEDS ORDERED: GABA300C PO (11:40)
[2019-09-22] MEDS ORDERED: PSEU-137 PO (11:56)
[2019-09-22] MEDS ORDERED: IBUP-2473 PO (11:56)
[2019-09-22] MEDS ORDERED: MAGIC MOUTHWASH (11:56)
[2019-09-22] MEDS ORDERED: FLUT16SP22 NSEACH (11:56)
[2019-09-22] MEDS ORDERED: ACET-2267 PO (11:56)
[2019-09-22] MEDS ORDERED: PYRI60TA (11:56)
[2019-09-22] MEDS ORDERED: LIDO5JEL10 UR (11:56)
--- NOTE | 2019-09-22 12:05 | NUR ---
pt tolerating blood transfusion without difficulty, will continue to monitor
[2019-09-22] MEDS ORDERED: LEVO25TA5 PO (12:09)
[2019-09-22] MEDS ORDERED: NF-ZOL12.5 PO (12:09)
[2019-09-22] MEDS ORDERED: OXYC-188 PO (12:09)
--- NOTE | 2019-09-22 13:52 | NUR ---
SPOKE WITH PATIENT AND WENT THROUGH EXTERNAL MED HISTORY TO COMPLETE THE MED REC. PYRIDOSTIGMINE 60MG PICKED UP IN [facility] #90 30DS PATIENT IS NOT AWARE OF THIS MEDICATION AND SAYS SHE IS NOT TAKING. THEREFORE I DID NOT INCLUDE THIS IN THE MED REC. OTC: BENADRYL IBUPROFEN TYLENOL SUDAFED
[2019-09-22] MEDS: VANCOMYCIN INJECTION 1,000 MG in NS (IVPB) 250 ML IV SCH ×2 (14:07→23:03)
--- NOTE | 2019-09-22 14:40 | History & Physical-Hospitalist ---
History of Present Illness HPI/Chief Complaint Macey Decker is a 59 year old female with PMH metastatic breast cancer on chemotherapy who presented with fevers and bodyaches. She reports having fevers up to 101 at home over the past couple days. She reports having bodyaches all over. She denies shortness of breath and cough. She denies chest pain. She denies abdominal pain, nausea, vomiting, and diarrhea. She denies any hematochezia or melena. There is no evidence of active bleeding. She was recently treated for a UTI with Cipro. She denies any dysuria. Her last chemotherapy was 3 weeks ago and she is scheduled for chemo tomorrow. She follows with Dr. Gregory. Source: patient Exam Limitations: no limitations Date Seen 09/22/19 Time Seen by a Provider: 08:30 Attending Physician Damaris Taveras DO PCP Rodrigue Orellana DO Referring Physician Date of Admission Sep 21, 2019 at 21:00 Home Medications & Allergies Home Medications Reviewed patient Home Medication Reconciliation performed by pharmacy medication reconciliations patient care technician instructor and/or nursing. Patients Allergies have been reviewed. Allergies Allergies Coded Allergies morphine (Verified Allergy, Intermediate, Itching, 04/18/19) aspirin (Verified Allergy, Unknown, 01/13/18) prochlorperazine (Verified Allergy, Unknown, 06/11/19) Tolerates Phenergan well Past Uknheft-Eiyoxj-Vxtkqk Hx Past Med/Social Hx: Reviewed Nursing Past Med/Soc Hx Patient Social History Alcohol Use: Denies Use Recreational Drug Use: No Smoking Status: Never a Smoker 2nd Hand Smoke Exposure: No Recent Foreign Travel: No Contact w/other who traveled: No Recent Hopitalizations: No Recent Infectious Disease Expo: No Immunizations Up To Date Tetanus Booster (TDap): Unknown Pediatric: Yes Seasonal Allergies Seasonal Allergies: No Past Medical History Surgeries: Breast, Section, 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 Currently Using CPAP: No Currently Using BIPAP: No Cardiac: Hypertension 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: Neuropathy 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 Gastrointestinal: Gastroesophageal Reflux, Gall Bladder Disease Endocrine: Hypothyroidsim Cancer: Bone, Breast Did You Recieve Any Treatments: Yes What Type of Treatment Did You: Chemotherapy Psychosocial: ADD/ADHD, Sleep Difficulties, Depression History of Blood Disorders: No Family History Asthma 19 FATHER G8 BROTHER G8 SISTER Cardiovascular disease 19 MOTHER FH: skin cancer 19 FATHER G8 BROTHER Myocardial infarction G8 SISTER (X2) No Pertinent Family Hx Review of Systems Constitutional: fever, malaise EENTM: no symptoms reported Respiratory: no symptoms reported Cardiovascular: no symptoms reported Gastrointestinal: no symptoms reported Genitourinary: no symptoms reported Musculoskeletal: muscle pain Skin: no symptoms reported Psychiatric/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: No Symptoms Reported Physical Exam Physical Exam Vital Signs Vital Signs - First Documented 09/21/19 09/22/19 18:28 03:04 Temp 36.9 Pulse 89 Resp 20 B/P (MAP) 147/95 (112) Pulse Ox 95 FiO2 21 Capillary Refill : Less Than 3 SecondsLess Than 3 Seconds Height, Weight, BMI Height: '" Weight: lbs. oz. kg; 26.46 BMI Method: General Appearance: No Apparent Distress, Chronically ill HEENT: PERRL/EOMI, Pharynx Normal Neck: Normal Inspection, Supple Respiratory: Lungs Clear, Normal Breath Sounds, No Respiratory Distress Cardiovascular: Regular Rate, Rhythm, No Edema, No Murmur, Other (Right-sided port well-appearing) Gastrointestinal: Normal Bowel Sounds, Non Tender, Soft, Other (Right lower quadrant peritoneal catheter nontender, well-appearing) Extremity: Normal Inspection, Non Tender, No Pedal Edema Neurologic/Psychiatric: Alert, Oriented x3, No Motor/Sensory Deficits, Normal Mood/Affect Skin: Normal Color, Warm/Dry Results Results/Procedures Labs Laboratory Tests 09/21/19 19:00 09/22/19 03:06 09/22/19 06:07 Patient resulted labs reviewed. Imaging: Reviewed Imaging Report Assessment/Plan Admission Diagnosis Sepsis Admission Status: Inpatient Order (span 2 midnights) Reason for Inpatient Admission: Sepsis requiring further evaluation and treatment Assessment and Plan Sepsis Immunocompromised due to chemotherapy WBC 4.9, HR 89, temp 36.9 on arrival, RR 20 UA not indicative of UTI, but could be falsely normal due to immunocompromised state Urine culture pending Chest x-ray normal Blood cultures pending Started on vancomycin and cefepime, continue Check procalcitonin Anemia Appears to be chronic, no evidence of active bleeding Hemoglobin 6.9 this morning Transfuse 1 unit PRBC Metastatic breast cancer Malignant ascites Consult Dr. Gregory DVT prophylaxis: Lovenox Diagnosis/Problems Diagnosis/Problems (1) Sepsis Status: Acute Qualifiers: Sepsis type: sepsis due to unspecified organism Sepsis acute organ dysfunction status: without acute organ dysfunction Qualified Codes: A41.9 - Sepsis, unspecified organism (2) Metastatic breast cancer Status: Acute Clinical Quality Measures DVT/VTE Risk/Contraindication: Risk Factor Score Per Nursin RFS Level Per Nursing on Admit: 4+=Very High TASHA SMITH MD Sep 22, 2019 14:40
[2019-09-22] MEDS ORDERED: ENOXAPARIN 40 MG/0.4 ML (LOVENOX) SYR SC SCH (15:00)
[2019-09-22] MEDS: HYDROcodone/APAP 5 MG/325 MG (LORTAB) TAB PO PRN ×2 (15:48→21:10)
[2019-09-22 18:38] LABS: HEMOGLOBIN 8.1 G/DL (11.5-16.0)
[2019-09-22] MEDS: ENOXAPARIN 40 MG/0.4 ML (LOVENOX) SYR SC SCH (21:08)
[2019-09-23] MEDS: NS IV 1000 ML 1,000 ML IV SCH ×2 (01:59→13:44)
[2019-09-23 04:20] VITALS: BP 140/89
[2019-09-23 06:09] LABS: HEMOGLOBIN 8.2 G/DL (11.5-16.0)
[2019-09-23] MEDS: ONDANSETRON 4 MG/2 ML (SDV) Z0FRAN IVP PRN ×2 (07:21→15:16)
[2019-09-23] MEDS: HYDROcodone/APAP 5 MG/325 MG (LORTAB) TAB PO PRN ×2 (07:21→15:17)
[2019-09-23] MEDS: PANTOPRAZOLE 40 MG (PROTONIX) VIAL IV SCH (07:31)
[2019-09-23 07:57] VITALS: BP 142/74
[2019-09-23] MEDS: morphine INJ 4 MG/ML 1 ML (VIAL/SYRINGE) IV PRN ×3 (09:12→21:35)
[2019-09-23] MEDS: CEFEPIME INJECTION 2,000 MG in WATER (STERILE) FOR INJECTION 20 ML IV SCH ×2 (09:13→21:35)
[2019-09-23] MEDS: PANTOPRAZOLE 40 MG (PROTONIX) TAB PO SCH ×2 (09:21→21:33)
[2019-09-23] MEDS: polyethylene glycoL POWDER 17 GM (MIRALAX) PACK PO SCH ×2 (09:22→21:35)
[2019-09-23] MEDS: SENNA W/DOCUSATE (SENOKOT S) TABLET PO SCH ×2 (09:23→21:35)
--- NOTE | 2019-09-23 10:00 | NUR ---
REFUSED TO HAVE FLUID REMOVED FROM ABD. STATED " WE'VE BEEN DOING IT ONCE A WEEK AT HOME."
[2019-09-23] MEDS: VANCOMYCIN INJECTION 1,000 MG in NS (IVPB) 250 ML IV SCH (10:36)
--- NOTE | 2019-09-23 10:41 | Progress Note - Hospitalist ---
Subjective HPI/CC On Admission Date Seen by Provider: Sep 23, 2019 Time Seen by Provider: 08:45 Macey Decker is a 59 year old female with PMH metastatic breast cancer on chemotherapy who presented with fevers and bodyaches. She reports having fevers up to 101 at home over the past couple days. She reports having bodyaches all over. She denies shortness of breath and cough. She denies chest pain. She denies abdominal pain, nausea, vomiting, and diarrhea. She denies any hematochezia or melena. There is no evidence of active bleeding. She was recently treated for a UTI with Cipro. She denies any dysuria. Her last chemotherapy was 3 weeks ago and she is scheduled for chemo tomorrow. She follows with Dr. Gregory. Subjective/Events-last exam She is feeling better this morning. She denies any fevers since admission. She denies any shortness of breath or cough. She denies any abdominal pain, nausea, or vomiting. She denies any dysuria. She has no other complaints or concerns. Focused Exam Lactate Level 09/21/19 19:00: Lactic Acid Level 1.86 09/21/19 22:56: Lactic Acid Level 0.51 Time of Focused Exam: 20:59 Objective Exam Vital Signs Vital Signs Date Time Temp Pulse Resp B/P (MAP) Pulse Ox O2 Delivery O2 Flow Rate FiO2 09/23/19 09:00 Room Air 09/23/19 07:57 37.0 92 16 142/74 (96) 93 09/22/19 13:08 21 Capillary Refill : Less Than 3 SecondsLess Than 3 Seconds General Appearance: No Apparent Distress, Chronically ill Respiratory: Lungs Clear, Normal Breath Sounds, No Respiratory Distress Cardiovascular: Regular Rate, Rhythm, No Edema, No Murmur Gastrointestinal: Normal Bowel Sounds, Non Tender, Soft Extremity: Normal Inspection, Non Tender, No Pedal Edema Neurologic/Psychiatric: Alert, Oriented x3, No Motor/Sensory Deficits, Normal Mood/Affect Skin: Normal Color, Warm/Dry Results/Procedures Lab Laboratory Tests 09/22/19 18:30 09/23/19 05:55 Patient resulted labs reviewed. Imaging: Reviewed Imaging Report Assessment/Plan Assessment and Plan Assess & Plan/Chief Complaint Sepsis Immunocompromised due to chemotherapy Urine culture pending Peritoneal fluid culture pending Blood cultures with no growth today Continue cefepime, discontinue vancomycin Anemia Appears to be chronic, no evidence of active bleeding Hemoglobin 8.2 this morning TransfuseD 1 unit PRBC 09/21 Metastatic breast cancer Malignant ascites Consult Dr. Gregory DVT prophylaxis: Lovenox Diagnosis/Problems Diagnosis/Problems (1) Sepsis Status: Acute Qualifiers: Sepsis type: sepsis due to unspecified organism Sepsis acute organ dysfunction status: without acute organ dysfunction Qualified Codes: A41.9 - Sepsis, unspecified organism (2) Metastatic breast cancer Status: Acute Clinical Quality Measures DVT/VTE Risk/Contraindication: Risk Factor Score Per Nursin RFS Level Per Nursing on Admit: 4+=Very High TASHA SMITH MD Sep 23, 2019 10:41
[2019-09-23 11:44] VITALS: BP 157/77
[2019-09-23] MEDS ORDERED: ZOLPIDEM 5 MG (AMBIEN) TAB PO PRN (12:15)
[2019-09-23] MEDS: diphenhydrAMINE 25 MG TAB (BENADRYL) PO PRN ×2 (13:45→21:33)
--- NOTE | 2019-09-23 14:38 | NUR ---
Met with pt and to discuss continued care plans. Pt not feeling much better and understands awaiting lab results to guide the treatment plan. Pt requested completion of Advance Directives which was completed naming as the health care agent and naming her two daughters as alternates. Copies placed in chart. She continues to receive [facility] and would like their services to continue.
[2019-09-23] MEDS: fentaNYL INJECTION 100 MCG/2 ML AMP IV PRN (15:16)
--- NOTE | 2019-09-23 16:03 | Oncology Consultation ---
Visit Information Visit Information Date of Admission Sep 21, 2019 at 21:00 Attending Physician Reyna West MD Admitting Physician Rodrigue Orellana DO Chief Complaint Fever and body aching, breast cancer with bone mets and peritoneal carcinomatosis on chemo Interval History Ms. Decker is a 59 year old female known to me for breast cancer with bone mets and peritoneal carcinomatosis on Carbo+Taxol chemotherapy, last dose 08/31/2019. She presented to ER with general body aching specially the left shoulder and right hip and fever at home about 2 days ago. She was admitted from ER and started IV Cefepime and Vanco. Her blood culture negative, urine culture negative 24hrs and culture from the peritoneal fluid negative 24hrs. Her UA showed WBC 5-10 cell per high power. She is feeling better since the admission. No more fever. We have been off her chemo which was supposed to be 09/21/2019. I consulted the patient on: 09/23/19 16:03 Time Seen by Provider: 15:00 Review of Systems Constitutional: weakness EENTM: see HPI Respiratory: no symptoms reported Cardiovascular: no symptoms reported Gastrointestinal: no symptoms reported Genitourinary: no symptoms reported Musculoskeletal: joint pain, muscle pain Psychiatric/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: Anxiety Health Status Allergies Coded Allergies: morphine (Verified Allergy, Intermediate, Itching, 04/18/19) aspirin (Verified Allergy, Unknown, 01/13/18) prochlorperazine (Verified Allergy, Unknown, 06/11/19) Tolerates Phenergan well Home Medications Acetaminophen (Tylenol Extra Strength) 500 Mg Tablet, 1,000 MG PO Q8H PRN for PAIN-MILD (1-4), (Reported) Dexamethasone (Dexamethasone) 4 Mg Tablet, 8 NG PO 0800,1400 PRN for DAY BEFORE,OF,&AFTER CHEMO, (Reported) TAKES 2 (4MG) TABS THE DAY BEFORE, THE DAY OF AND THE DAY AFTER CHEMO Dexamethasone (Dexamethasone) 4 Mg Tablet, MG PO UD PRN for AFTER CHEMO STEROID TAPER, (Reported) THE 2ND DAY AFTER CHEMO PATEINT TAPERS DOSE Dextroamphetamine/Amphetamine (Dextroamp-Amphet ER 30 mg Cap) 30 Mg Cap.er.24h, 30 MG PO DAILY, (Reported) Diphenhydramine HCl (Benadryl) 25 Mg Capsule, 50 MG PO Q4H PRN for ALLERGY SYMPTOMS, (Reported) Fluoxetine HCl (Fluoxetine HCl) 40 Mg Capsule, 40 MG PO DAILY, (Reported) Fluticasone Propionate (Fluticasone Propionate) 16 Gm Kennard.susp, 1 SPRAY NSEACH BID PRN for ALLERGY SYMPTOMS, (Reported) Gabapentin (Neurontin) 300 Mg Capsule, 300 MG PO HS, (Reported) Ibuprofen (Ibuprofen) 200 Mg Tablet, 400 MG PO Q8H PRN for PAIN-MILD (1-4), (Reported) Levothyroxine Sodium (Levothyroxine Sodium) 25 Mcg Tablet, 25 MCG PO DAILY, (Reported) Lidocaine HCl (Lidocaine HCl) 5 Ml Jel.pf.geni, 1 APPLIC UR TID PRN for SEVERE BLADDER PAIN, (Reported) USE 1 SYRINGE VIA URETHRA INTO BLADDER NEEDED FOR SEVERE BLADDER PAIN. Omeprazole (Omeprazole) 40 Mg Capsule.dr, 40 MG PO HS, (Reported) Oxycodone HCl/Acetaminophen (Endocet 5-325 Tablet) 1 Each Tablet, 1 EACH PO TID PRN for PAIN-MODERATE (5-7), (Reported) Pseudoephedrine HCl (Sudafed) 30 Mg Tablet, 30-60 MG PO Q4H PRN for CONGESTION, (Reported) Sucralfate (Sucralfate) 1 Gm Tablet, 1 GM PO ACHS PRN for TAKES DURING CHEMO TREATMENT, (Reported) Zolpidem Tartrate (Zolpidem Tartrate ER) 12.5 Mg Tab.mphase, 12.5 MG PO HS, (Reported) [Magic Mouthwash] , 5-10 ML ACHS PRN for MOUTH PAIN, (Reported) VRU-Ihuatt-Gbmlov Hx Patient Social History Alcohol Use: Denies Use Recreational Drug Use: No Smoking Status: Never a Smoker 2nd Hand Smoke Exposure: No Recent Foreign Travel: No Contact w/other who traveled: No Recent Infectious Disease Expo: No Recent Hopitalizations: No Immunizations Up To Date Tetanus Booster (TDap): Unknown Family Medical History Significant Family History: No Pertinent Family Hx Family History: Asthma 19 FATHER G8 BROTHER G8 SISTER Cardiovascular disease 19 MOTHER FH: skin cancer 19 FATHER G8 BROTHER Myocardial infarction G8 SISTER (X2) Physical Exam Vital Signs Vital Signs - First Documented 09/21/19 09/22/19 18:28 03:04 Temp 36.9 Pulse 89 Resp 20 B/P (MAP) 147/95 (112) Pulse Ox 95 FiO2 21 Capillary Refill : Less Than 3 SecondsLess Than 3 Seconds Height, Weight, BMI Height: '" Weight: lbs. oz. kg; 26.46 BMI Method: General Appearance: Anxious HEENT: PERRL/EOMI Neck: Non Tender, Supple Respiratory: No Accessory Muscle Use, No Respiratory Distress Cardiovascular: Regular Rate, Rhythm Gastrointestinal: Non Tender, Soft, Other (peritoneal correction catheter in place and no sign of infection) Extremity: Non Tender, No Calf Tenderness, No Pedal Edema Neurologic/Psychiatric: Alert, Oriented x3 Data Review Labs Laboratory Tests 09/22/19 18:30 09/23/19 05:55 Laboratory Tests 09/21/19 19:00: Red Blood Count 2.44L, Hemoglobin 7.2L, Hematocrit 23L, Mean Corpuscular Hemoglobin Concent 31L, Red Cell Distribution Width 16.8H, Monocytes (%) (Auto) 14H, Lymphocytes # (Auto) 0.9L, Activated Partial Thromboplast Time 44H, Sodium Level 134L, Glucose Level 127H, Total Protein 5.6L, Albumin 2.9L 09/21/19 20:12: Urine Specific Varney 1.010L, Urine Leukocyte Esterase 1+H, Urine WBC 5-10H 09/21/19 22:56: 09/22/19 03:06: Red Blood Count 2.43L, Hemoglobin 7.0L, Hematocrit 23L, Mean Corpuscular Hemogl obin Concent 30L, Red Cell Distribution Width 17.0H, Monocytes (%) (Auto) 17H, Total Protein 5.3L, Albumin 2.7L, White Blood Count 4.1L, Chloride Level 108H, Carbon Dioxide Level 20L, Procalcitonin 0.12H 09/22/19 06:07: Hemoglobin 6.9*L, Hematocrit 23L 09/22/19 18:30: Hemoglobin 8.1L, Hematocrit 26L 09/23/19 05:55: Hemoglobin 8.2L, Hematocrit 26L, Procalcitonin 0.12H 09/23/19 11:37: Impression & Plan Impression & Plan IMP: 1. Stage IV invasive lobular breast cancer, with bone mets and peritoneal carcin omatosis on Carbo+Taxol full dose q 3wks schedule. Pt did not do well with this cycle. 2. Multiple UTIs over last 6 months. 3. Left hydronephrosis s/p left urethral stent placement on 05/25/19. 4. 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 Drainage improved from 1L/day to 1L/week since the chemo. 5. Fever, aching, ? infection, ?source. Pt is NOT neutropenic although she is i mmunocompromised. 6. Anemia, improved with RBC transfusion. Plan: 1. The huizar is to determine if she has the infection?. If so, where? a). If she has no clear evidence of infection from the cultures during this hospitalization, I would stop the antibiotics and watch. If she spikes fever again, re-do cultures of blood, urine and peritoneal fluid. b). If she has line related infection (port or peritoneal catheter), then she needs IV antibiotics for 2 weeks to clean the infection. Antibiotic choice will be based on culture and sensitivity results. Pt has the home health service at home already if she wants to do home IV infusion. If she still spike fever while on the IV antibiotics, then the line needs to be removed. 2. Regardless if she has infection or not, she needs 2 weeks of chemo break. I will see her at the cancer center for f/u in 2 weeks. 3. Pt can be discharged to home if no fever for 72 hrs and all cultures are negative. Pt has the home health service at home. Dr. West to decide the hospital course and discharge. 4. I will be out of office this Friday. If you have any questions, please call Dr Day. Thank you. HUY STONE MD Sep 23, 2019 16:03
[2019-09-23 16:22] VITALS: BP 180/81
[2019-09-23] MEDS: FLUoxetine HCL 20 MG (PROzac) CAP PO SCH (17:20)
[2019-09-23 19:17] LABS: HEMOGLOBIN 7.8 G/DL (11.5-16.0)
[2019-09-23 20:05] VITALS: BP 151/81
[2019-09-23] MEDS ORDERED: PANTOPRAZOLE 40 MG (PROTONIX) TAB PO SCH (21:00)
[2019-09-23] MEDS ORDERED: NON-FORMULARY MEDICATION 1 EA EA (Zolpidem Tartrate (Zolpidem Tartrate ER) 12.5 MG) PO SCH ×2 (21:00)
[2019-09-23] MEDS ORDERED: GABAPENTIN 300 MG (NEURONTIN) CAP PO SCH (21:00)
[2019-09-23] MEDS: ENOXAPARIN 40 MG/0.4 ML (LOVENOX) SYR SC SCH (21:32)
[2019-09-24 00:01] VITALS: BP 145/83
[2019-09-24] MEDS: NS IV 1000 ML 1,000 ML IV SCH (02:16)
[2019-09-24 04:00] VITALS: BP 138/73
[2019-09-24] MEDS ORDERED: LEVOTHYROXINE 25 MCG (LEVOTHROID) TAB PO SCH (06:30)
[2019-09-24 08:00] VITALS: BP 145/88
[2019-09-24] MEDS ORDERED: [UNRECOGNIZED DRUG - OTHER] PO SCH (09:00)
[2019-09-24] MEDS ORDERED: DEXTROAMPHETAMINE PO SCH (09:00)
[2019-09-24] MEDS ORDERED: AMPHETAMINE PO SCH (09:00)
[2019-09-24] MEDS ORDERED: FLUoxetine HCL 20 MG (PROzac) CAP PO SCH (09:00)
[2019-09-24 09:35] LABS: BASOPHILS % (AUTO) 0 % (0-10); EOSINOPHILS # (AUTO) 0.1 10^3/uL (0.0-0.3); EOSINOPHILS % (AUTO) 1 % (0-10); HEMATOCRIT 27 % (35-52); HEMOGLOBIN 8.3 G/DL (11.5-16.0); LYMPHOCYTES # (AUTO) 0.9 X 10^3 (1.0-4.0); LYMPHOCYTES % (AUTO) 18 % (12-44); MEAN CORPUSCULAR HEMOGLOBIN 29 PG (25-34); MEAN CORPUSCULAR HGB CONC 31 G/DL (32-36); MEAN CORPUSCULAR VOLUME 91 FL (80-99); MEAN PLATELET VOLUME 9.3 FL (7.4-10.4); MONOCYTES # (AUTO) 0.7 X 10^3 (0.0-1.0); MONOCYTES % (AUTO) 15 % (0-12); NEUTROPHILS # (AUTO) 3.2 X 10^3 (1.8-7.8); NEUTROPHILS % (AUTO) 65 % (42-75); PLATELET COUNT 285 10^3/uL (130-400); RED CELL DISTRIBUTION WIDTH 18.2 % (10.0-14.5); WHITE BLOOD COUNT 4.9 10^3/uL (4.3-11.0)
[2019-09-24] MEDS: PANTOPRAZOLE 40 MG (PROTONIX) TAB PO SCH (09:35)
[2019-09-24] MEDS: FLUoxetine HCL 20 MG (PROzac) CAP PO SCH (09:35)
[2019-09-24] MEDS: CEFEPIME INJECTION 2,000 MG in WATER (STERILE) FOR INJECTION 20 ML IV SCH (09:51)
[2019-09-24 09:56] LABS: BUN/CREATININE RATIO 10; CALCIUM 9.1 MG/DL (8.5-10.1); CARBON DIOXIDE 24 MMOL/L (21-32); CHLORIDE 101 MMOL/L (98-107); CREATININE SERUM 0.69 MG/DL (0.60-1.30); GFR ESTIMATED > 60; GLUCOSE 123 MG/DL (70-105); SODIUM 135 MMOL/L (135-145)
[2019-09-24] MEDS: SENNA W/DOCUSATE (SENOKOT S) TABLET PO SCH (11:11)
[2019-09-24] MEDS: polyethylene glycoL POWDER 17 GM (MIRALAX) PACK PO SCH (11:11)
[2019-09-24 12:00] VITALS: BP 147/84
[2019-09-24] MEDS ORDERED: AMOX500C2 PO (12:10)
[2019-09-24] MEDS: morphine INJ 4 MG/ML 1 ML (VIAL/SYRINGE) IV PRN (13:19)
[2019-09-24] MEDS: diphenhydrAMINE 25 MG TAB (BENADRYL) PO PRN (13:23)
--- NOTE | 2019-09-24 14:11 | NUR ---
Arrangements completed for [facility] to be resumed with discharge instructions and medical reports faxed. Pt pleased to be discharged home
--- NOTE | 2019-09-24 14:30 | NUR ---
CALLED ABDON Godfrey ( [facility] ) [facility] BECAUSE UNABLE TO GET A HOLD OF DR. STONE AND PT. NEEDED PAIN MED.
[2019-09-24 14:50] VITALS: BP 147/84
--- NOTE | 2019-09-24 14:50 | NUR ---
SUZIE MILLER demonstrates understanding of discharge instructions and accurately returns instructions upon questioning. Copy of Post-Discharge Instructions given to PT. SUZIE MILLER is able to manage continuing needs after discharge. Patients belongings returned to PT. Patient discharged from 411-1 on 09/24/19 at 1450. SUZIE MILLER left floor via W/C, accompanied by STAFF AND PER AUTO.
--- NOTE | 2019-09-25 12:34 | Discharge Summary ---
Discharge Summary Hospital Course Was the Problem List Reviewed?: Yes Problems/Dx: (1) Sepsis Status: Acute Qualifiers: Qualified Codes: A41.9 - Sepsis, unspecified organism (2) Metastatic breast cancer Status: Acute (3) Anemia Status: Acute Hospital Course Date of Admission: Sep 21, 2019 at 21:00 Admission Diagnosis : sepsis Family Physician/Provider: Rodrigue Orellana DO Date of Discharge: 09/25/19 Discharge Diagnosis: sepsis Hospital Course: Macey Decker is a 59-year-old female with metastatic breast cancer currently undergoing chemotherapy who presented with sepsis. She was started on empiric vancomycin and cefepime. She underwent a thorough infectious evaluation. Chest x-ray revealed no evidence of pneumonia. Urinalysis did not reveal a urinary tract infection. She had blood cultures which had no growth today. A peritoneal fluid culture did grow aerobic actinomycetes. She was transitioned to oral amoxicillin. She remained afebrile throughout her hospitalization. Her course is complicated by anemia requiring a blood transfusion. Her hemoglobin remained stable at around 8 after transfusion. Her chemotherapy was postponed and she will follow-up with oncology in about 2 weeks. She was discharged in stable condition and will resume home health. Labs and Pending Lab Test: Microbiology 09/21/19 Urine Culture - Final, Complete Strep anginosus 09/21/19 Blood Culture - Preliminary, Resulted No growth 09/21/19 Gram Stain - Final, Resulted 09/21/19 Body Fluid Culture - Preliminary, Resulted Aerobic actinomycetes Gram Pos Mixed Bacterial Lori Home Meds Active Amoxicillin 500 Mg Capsule 500 Mg PO TID 7 Days Reported Zolpidem Tartrate ER (Zolpidem Tartrate) 12.5 Mg Tab.mphase 12.5 Mg PO HS Endocet 5-325 Tablet (Oxycodone HCl/Acetaminophen) 1 Each Tablet 1 Each PO TID PRN Levothyroxine Sodium 25 Mcg Tablet 25 Mcg PO DAILY Tylenol Extra Strength (Acetaminophen) 500 Mg Tablet 1,000 Mg PO Q8H PRN Ibuprofen 200 Mg Tablet 400 Mg PO Q8H PRN [Magic Mouthwash] 5-10 Ml ACHS PRN Lidocaine HCl 5 Ml Jel.pf.geni 1 Applic UR TID PRN USE 1 SYRINGE VIA URETHRA INTO BLADDER NEEDED FOR SEVERE BLADDER PAIN. Sudafed (Pseudoephedrine HCl) 30 Mg Tablet 30-60 Mg PO Q4H PRN Fluticasone Propionate 16 Gm [place].susp 1 [place] NSEACH BID PRN Neurontin (Gabapentin) 300 Mg Capsule 300 Mg PO HS Omeprazole 40 Mg Capsule.dr 40 Mg PO HS Fluoxetine HCl 40 Mg Capsule 40 Mg PO DAILY Sucralfate 1 Gm Tablet 1 Gm PO ACHS PRN Dexamethasone 4 Mg Tablet Mg PO UD PRN THE 2ND DAY AFTER CHEMO PATEINT TAPERS DOSE Dexamethasone 4 Mg Tablet 8 Ng PO 0800,1400 PRN TAKES 2 (4MG) TABS THE DAY BEFORE, THE DAY OF AND THE DAY AFTER CHEMO Benadryl (Diphenhydramine HCl) 25 Mg Capsule 50 Mg PO Q4H PRN Dextroamp-Amphet ER 30 mg Cap (Dextroamphetamine/Amphetamine) 30 Mg Cap.er.24h 30 Mg PO DAILY Assessment/Pt Instructions take medications as prescribed. Complete her course of antibiotics even appear feeling better. Follow-up with your oncologist. Discharge Planning: <30 minutes discharge planning Discharge Instructions Discharge Diet: No Restrictions Activity as Tolerated: Yes Pneumonia Vaccine Order Indica: Yes Discharge Physical Examination Vital Signs Vital Signs Date Time Temp Pulse Resp B/P (MAP) Pulse Ox O2 Delivery O2 Flow Rate FiO2 09/24/19 14:50 36.9 87 20 147/84 97 Room Air 09/22/19 13:08 21 General Appearance: No Apparent Distress, Chronically ill Respiratory: Lungs Clear, Normal Breath Sounds, No Respiratory Distress Cardiovascular: Regular Rate, Rhythm, No Edema, No Murmur, Other (right chest wall port in place) Gastrointestinal: Normal Bowel Sounds, Non Tender, Soft, Other (peritoneal catheter in place right lower quadrant) Extremity: Normal Inspection, Non Tender, No Pedal Edema Skin: Normal Color, Warm/Dry Neurologic/Psychiatric: Alert, Oriented x3, No Motor/Sensory Deficits, Normal Mood/Affect Allergies: Coded Allergies: morphine (Verified Allergy, Intermediate, Itching, 04/18/19) aspirin (Verified Allergy, Unknown, 01/13/18) prochlorperazine (Verified Allergy, Unknown, 06/11/19) Tolerates Phenergan well Copy Copies To 1: HUY STONE MD Discharge Summary Date of Admission Sep 21, 2019 at 21:00 Date of Discharge Sep 24, 2019 at 14:50 Discharge Date: Sep 24, 2019 Discharge Time: 14:50 Admission Diagnosis Sepsis Consults/Procedures Consulations oncology Discharge Diagnosis Sepsis (1) Sepsis Status: Acute Qualifiers: Qualified Codes: A41.9 - Sepsis, unspecified organism (2) Metastatic breast cancer Status: Acute (3) Anemia Status: Acute Clinical Quality Measures DVT/VTE Risk/Contraindication: Risk Factor Score Per Nursin RFS Level Per Nursing on Admit: 4+=Very High TASHA SMITH MD Sep 25, 2019 12:34
== END 2019-09-24 14:50 | disposition home health service (06) | DRG 872 ==
LOC: EDUNIT# 18:05 → ER 18:06 → 4TH 21:00 → CSD 21:01 → ICU 22:34 → 4TH 09-22 09:25
PROVIDERS: ADMIT Internal Medicine; ATTEND Internal Medicine
DX: A41.9 Sepsis, unspecified organism (principal); N39.0 Urinary tract infection, site not specified; C79.51 Secondary malignant neoplasm of bone; R18.0 Malignant ascites; C50.911 Malignant neoplasm of unspecified site of right female breast; D64.9 Anemia, unspecified; I10 Essential (primary) hypertension; J45.909 Unspecified asthma, uncomplicated; G62.9 Polyneuropathy, unspecified; K21.9 Gastro-esophageal reflux disease without esophagitis; F90.9 Attention-deficit hyperactivity disorder, unspecified type; G47.9 Sleep disorder, unspecified; F32.9 Major depressive disorder, single episode, unspecified; Z79.899 Other long term (current) drug therapy; Z98.890 Other specified postprocedural states
CPT/HCPCS: 36415; 71045; 80048; 80053; 81000; 83605; 84145; 85014; 85018; 85025; 85610; 85730; 86850; 86900; 86901; 86920; 87040; 87070; 87077; 87088; 87205

== ENCOUNTER → 2019-10-20 | Outpatient (CLI) | payer MEDICARE, OTHER ==
[~2019-10-20] MED LIST changes: +AMOX500C2 PO; +BARIUM SUSPENSION 2.1% (VANILLA SILQ) 450 ML PO ONE; +CEFD300C3 PO; +FLUT16SP22 NSEACH; +GABA300C PO; +GABA300S2 PO; +HOLD METFORMIN - RECEIVED CONTRAST 20 ML VIAL IV SCH; +IOHEXOL 350 MG/ML 100 ML (OMNIPAQUE 350) VIAL IV ONE; +LIDO5JEL10 UR; +MAGIC MOUTHWASH; +NS 100 ML (IVPB) BAG IV ONE; +OXYC-188 PO; +PYRI60TA
--- NOTE | 2019-10-20 10:52 | Diagnostic Imaging Report ---
PROCEDURE: CT chest, abdomen, and pelvis with contrast. TECHNIQUE: Multiple contiguous axial images were obtained through the chest, abdomen, and pelvis after the administration of intravenous contrast. Auto Exposure Controls were utilized during the CT exam to meet ALARA standards for radiation dose reduction. INDICATION: Right breast carcinoma. COMPARISON: Correlation is made with prior CT chest from 05/12/[address] abdomen and pelvis from 06/11/2019. FINDINGS: CT chest: A right chest wall port has tip at the SVC right atrial junction. There are postoperative changes to the right breast. No axillary lymphadenopathy is identified. No internal mammary lymphadenopathy is detected. No mediastinal or hilar lymphadenopathy is detected. There is no pericardial or pleural fluid. Parenchymal evaluation does show some linear scarring or atelectasis in the superior segment of right lower lobe. Calcified granuloma in left lower lobe. No noncalcified mass is identified. Osteoblastic and osteolytic metastatic disease throughout the thoracic spine and sternum is again noted. IMPRESSION: 1. No evidence of thoracic lymphadenopathy or pulmonary metastatic disease. 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 CT abdomen and pelvis: Cystic-appearing lesions within the liver are again noted. Gallbladder is unremarkable. There is no biliary ductal dilatation. The pancreas and spleen are unremarkable. No adrenal mass is detected. Right kidney is unremarkable. There is a left-sided nephroureteral stent extending from the left kidney into the urinary bladder. There continues to be a moderate abdominal and pelvic ascites. There is a peritoneal catheter present. Overall volume of ascites has decreased since prior CT. There continues to be enhancement to the peritoneum. There is some hazy infiltration of the omentum suggestive of some omental caking. Slight nodularity in the left upper quadrant is seen in the omentum. Bowel loops appear to be normal caliber. There is some generalized bowel wall thickening throughout small and large bowel loops, perhaps on base of ascites. The bladder is decompressed. No free air is seen. Diffuse osteolytic and osteoblastic metastatic disease throughout the lumbar spine and pelvis is noted. IMPRESSION: Moderate abdominal and pelvic ascites. Ascites has decreased since prior CT, status post peritoneal drain placement. There is infiltration and some nodularity to the omentum. Features are suggestive of peritoneal carcinomatosis. No definite bowel obstruction is seen at this time. 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 Dictated by: Dictated on workstation # [id number]
== END ==
LOC: RAD 09:31
PROVIDERS: ATTEND Internal Medicine Hematology & Oncology
DX: C50.311 Malignant neoplasm of lower-inner quadrant of right female breast (principal); C79.51 Secondary malignant neoplasm of bone; R18.8 Other ascites
CPT/HCPCS: 71260; 74177

== ENCOUNTER 2019-10-21 11:38 | Emergency (ER) | payer MEDICARE, OTHER ==
[~2019-10-21] VITALS: Ht 165 cm; Wt 69.3 kg
[~2019-10-21 11:38] MED LIST changes: -BARIUM SUSPENSION 2.1% (VANILLA SILQ) 450 ML PO ONE; -CEFD300C3 PO; -HOLD METFORMIN - RECEIVED CONTRAST 20 ML VIAL IV SCH; -IOHEXOL 350 MG/ML 100 ML (OMNIPAQUE 350) VIAL IV ONE; -NS 100 ML (IVPB) BAG IV ONE
--- NOTE | 2019-10-21 12:27 | NUR ---
Report given to TINO Rowley, to assume care of pt.
--- NOTE | 2019-10-21 12:43 | ED GI ---
General Chief Complaint: Abdominal/GI Problems Stated Complaint: NAUSEA/DEHYDRATION CONCERNS Nursing Triage Note: Pt reports having metastaic breast cancer and had a ureter stent replaced on Friday. Pt reports nausea since then and fluid build up in the abdomen. Pt has drain in place and has had to drain fluid multiple times. Pt reprots diarrhea yesterday and now reports BM is water today. Pt reports vomiting 4 times since 0230 this morning. Pt is concerned of dehydration. Sepsis Screen: No Definite Risk Source of Information: Patient Exam Limitations: No Limitations (NATHANIEL GUADALUPE STUDENT) History of Present Illness Date Seen by Provider: Oct 21, 2019 Time Seen by Provider: 12:15 Initial Comments Suzie Miller is a 59 year old woman who was seen today due to nausea and vomi ting, and concern for dehydration. She was recommended to see the ER by oncology due to concern for dehydration. She reports the nausea began 10/18. She had a ureteral stent replaced on 10/[address] Renae in [place], [place]. She had a CT scan with contrast 10/19, after which she reports her nausea worsened considerably, she vomited four times this morning. She reports she vomited food from her latest meal at first, and afterward had green vomit. She reports that eating and drinking worsens her nausea, and that zofran would improve the nausea for 30 minutes to an hour. She also reports having diarrhea since 10/18, at first she had loose stools but reports that today it is watery stools. She has had abdominal discomfort due to ascites, she has a drain placed for ascites and reports using it every day for the past several weeks. Denies having any abdominal pain, fevers, chills, hematemesis. Timing/Duration: 2-3 Days Severity/Quality: Mild Associated Symptoms: Nausea/Vomiting (NATHANIEL GUADALUPE MED STUDENT) Initial Comments Patient's only received modest control of her nausea using her 8 mg Zofran sublingually this morning. She had the CT scan done yesterday as a routine surve illance CT to assess the effectiveness of the carboplatin and Taxol treatment she most recently was on. She stopped that 6 weeks ago due to his severe reaction and tomorrow has an appointment to follow-up with the CT results and discuss what the next step of treatment is with Dr. Stone, oncology. Patient's not having any significant pain fever chills cough shortness of breath dysuria. The stent was initially placed for tumor burden and on last placement 2 months prior they felt that the tumor was gone however the test still showed that the ureter was not working appropriately so they have continued to keep a stent in place. No history of chronic kidney disease. She has a Port-A-Cath in place and was having some increasing ascites recently so she did drain 2 L off a couple days ago but none yesterday. She is not having any shortness of breath. (RENATO,APOLLO Bansal) Allergies and Home Medications Allergies Coded Allergies: morphine (Verified Allergy, Intermediate, Itching, 04/18/19) aspirin (Verified Allergy, Unknown, 01/13/18) prochlorperazine (Verified Allergy, Unknown, 06/11/19) Tolerates Phenergan well Home Medications Acetaminophen 500 Mg Tablet, 1,000 MG PO Q8H PRN for PAIN-MILD (1-4), (Reported) Amoxicillin 500 Mg Capsule, 500 MG PO TID Prescribed by: TASHA SMITH on 09/24/19 1210 Cefdinir 300 Mg Capsule, 300 MG PO BID Prescribed by: APOLLO GROSS on 10/21/19 1602 Dexamethasone 4 Mg Tablet, 8 NG PO 0800,1400 PRN for DAY BEFORE,OF,&AFTER CHEMO, (Reported) TAKES 2 (4MG) TABS THE DAY BEFORE, THE DAY OF AND THE DAY AFTER CHEMO Dexamethasone 4 Mg Tablet, MG PO UD PRN for AFTER CHEMO STEROID TAPER, (Reported) THE 2ND DAY AFTER CHEMO PATEINT TAPERS DOSE Dextroamphetamine/Amphetamine 30 Mg Cap.er.24h, 30 MG PO DAILY, (Reported) Diphenhydramine HCl 25 Mg Capsule, 50 MG PO Q4H PRN for ALLERGY SYMPTOMS, (Reported) Fluoxetine HCl 40 Mg Capsule, 40 MG PO DAILY, (Reported) Fluticasone Propionate 16 Gm Beverly.susp, 1 SPRAY NSEACH BID PRN for ALLERGY SYMPTOMS, (Reported) Gabapentin 300 Mg Capsule, 300 MG PO HS, (Reported) Ibuprofen 200 Mg Tablet, 400 MG PO Q8H PRN for PAIN-MILD (1-4), (Reported) Levothyroxine Sodium 25 Mcg Tablet, 25 MCG PO DAILY, (Reported) Lidocaine HCl 5 Ml Jel.pf.geni, 1 APPLIC UR TID PRN for SEVERE BLADDER PAIN, (Reported) USE 1 SYRINGE VIA URETHRA INTO BLADDER NEEDED FOR SEVERE BLADDER PAIN. Omeprazole 40 Mg Capsule.dr, 40 MG PO HS, (Reported) Oxycodone HCl/Acetaminophen 1 Each Tablet, 1 EACH PO TID PRN for PAIN-MODERATE (5-7), (Reported) Pseudoephedrine HCl 30 Mg Tablet, 30-60 MG PO Q4H PRN for CONGESTION, (Reported) Sucralfate 1 Gm Tablet, 1 GM PO ACHS PRN for TAKES DURING CHEMO TREATMENT, (Reported) Zolpidem Tartrate 12.5 Mg Tab.mphase, 12.5 MG PO HS, (Reported) [Magic Mouthwash] , 5-10 ML ACHS PRN for MOUTH PAIN, (Reported) Patient Home Medication List Home Medication List Reviewed: Yes (APOLLO GROSS) Review of Systems Review of Systems Constitutional: No chills, No dizziness, No fever EENTM: No Nose Congestion, No Throat Pain Respiratory: Denies Cough; Shortness of Air (associated with ascites) Cardiovascular: Denies Chest Pain; Irregular Heart Rate (fast heart rate getting up to vomit); Denies Lightheadedness, Denies Palpitations Gastrointestinal: Abdomen Distended; Denies Abdominal Pain, Denies Constipated; Diarrhea, Nausea, Poor Fluid Intake, Vomiting Genitourinary: Denies Frequency, Denies Incontinence, Denies Pain, Denies Urgency (NATHANIEL GUADALUPE) Musculoskeletal: No back pain, No joint pain (APOLLO GROSS) All Other Systems Reviewed Negative Unless Noted: Yes (APOLLO GROSS) Past Drhnomj-Esdges-Ypmnzx Hx Patient Social History Alcohol Use: Denies Use Recreational Drug Use: No 2nd Hand Smoke Exposure: No Recent Foreign Travel: No Contact w/Someone Who Travel: No Recent Infectious Disease Expo: No Recent Hopitalizations: No (NATHANIEL GUADALUPE) Alcohol Use: Denies Use Recreational Drug Use: No Smoking Status: Never a Smoker (APOLLO GROSS) Immunizations Up To Date Tetanus Booster (TDap): Unknown PED Vaccines UTD: Yes (NATHANIEL GUADALUPE) Seasonal Allergies Seasonal Allergies: No (NATHANIEL GUADALUPE) Past Medical History Surgeries: Yes (LUMPECTOMY AND MASECTOMY WITH RECONSTRUCTION ON RIGHT) Breast, Section, 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 Respiratory: Yes Asthma Currently Using CPAP: No Currently Using BIPAP: No Cardiac: Yes Hypertension 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: No 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: 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 Genitourinary: Yes (possible left ureteral obstruction, uretaral stents) Gastrointestinal: Yes Abdominal Hernia (s/p repair), Gastroesophageal Reflux, Gall Bladder Disease Musculoskeletal: Yes (metastases to bone) Endocrine: Yes Hypothyroidsim HEENT: No Cancer: Yes (RECENT METS DIAGNOSIS) Bone, Breast Did You Recieve Any Treatments: Yes What Type of Treatment Did You: Chemotherapy Psychosocial: Yes ADD/ADHD, Sleep Difficulties, Depression Integumentary: No Blood Disorders: No (NATHANIEL GUADALUPE STUDENT) Family Medical History Asthma 19 FATHER G8 BROTHER G8 SISTER Cardiovascular disease 19 MOTHER FH: skin cancer 19 FATHER G8 BROTHER Myocardial infarction G8 SISTER (X2) No Pertinent Family Hx (NATHANIEL GUADALUPE) Physical Exam Vital Signs Vital Signs - First Documented 10/21/19 12:06 Temp 36.4 Pulse 103 Resp 20 B/P (MAP) 125/86 (99) Pulse Ox 99 O2 Delivery Room Air (APOLLO GROSS) Vital Signs Capillary Refill : Less Than 3 Seconds (NATHANIEL GUADALUPE STUDENT) Height/Weight/BMI Height: '" Weight: lbs. oz. kg; 25.00 BMI Method: General Appearance: no apparent distress, other (chronically ill) HEENT: PERRL/EOMI; No scleral icterus (R), No scleral icterus (L) Neck: non-tender, full range of motion, supple, normal inspection Respiratory: chest non-tender, lungs clear, normal breath sounds, no respiratory distress, no accessory muscle use Cardiovascular: regular rate, rhythm, no edema, no gallop, no JVD, no murmur Gastrointestinal: normal bowel sounds, non tender, distended (mild) Extremities: non-tender, no pedal edema, no calf tenderness, normal capillary refill Neurologic/Psychiatric: alert, normal mood/affect, oriented x 3 Skin: normal color, warm/dry (NATHANIEL GUADALUPE STUDENT) Peripheral Pulses: 2+ Dorsalis Pedis (R), 2+ Left Dors-Pedis (L) (APOLLO GROSS) Progress/Results/Core Measures Results/Orders Lab Results Laboratory Tests Test 10/21/19 13:07 10/21/19 15:00 Range/Units White Blood Count 8.4 4.3-11.0 10^3/uL Red Blood Count 3.03 L 4.35-5.85 10^6/uL Hemoglobin 8.3 L 11.5-16.0 G/DL Hematocrit 27 L 35-52 % Mean Corpuscular Volume 90 80-99 FL Mean Corpuscular Hemoglobin 27 25-34 PG Mean Corpuscular Hemoglobin Concent 31 L 32-36 G/DL Red Cell Distribution Width 18.7 H 10.0-14.5 % Platelet Count 455 H 130-400 10^3/uL Mean Platelet Volume 9.1 7.4-10.4 FL Neutrophils (%) (Auto) 78 H 42-75 % Lymphocytes (%) (Auto) 13 12-44 % Monocytes (%) (Auto) 8 0-12 % Eosinophils (%) (Auto) 0 0-10 % Basophils (%) (Auto) 0 0-10 % Neutrophils # (Auto) 6.6 1.8-7.8 X 10^3 Lymphocytes # (Auto) 1.1 1.0-4.0 X 10^3 Monocytes # (Auto) 0.7 0.0-1.0 X 10^3 Eosinophils # (Auto) 0.0 0.0-0.3 10^3/uL Basophils # (Auto) 0.0 0.0-0.1 10^3/uL Sodium Level 132 L 135-145 MMOL/L Potassium Level 3.8 3.6-5.0 MMOL/L Chloride Level 99 98-107 MMOL/L Carbon Dioxide Level 20 L 21-32 MMOL/L Anion Gap 13 5-14 MMOL/L Blood Urea Nitrogen 11 7-18 MG/DL Creatinine 0.72 0.60-1.30 MG/DL Estimat Glomerular Filtration Rate > 60 BUN/Creatinine Ratio 15 Glucose Level 79 70-105 MG/DL Calcium Level 8.6 8.5-10.1 MG/DL Corrected Calcium 9.9 8.5-10.1 MG/DL Total Bilirubin 0.2 0.1-1.0 MG/DL Aspartate Amino Transf (AST/SGOT) 29 5-34 U/L Alanine Aminotransferase (ALT/SGPT) 9 0-55 U/L Alkaline Phosphatase 109 40-136 U/L Total Protein 5.3 L 6.4-8.2 GM/DL Albumin 2.4 L 3.2-4.5 GM/DL Lipase 8 8-78 U/L Urine Color YELLOW Urine Clarity CLEAR Urine pH 6.0 5-9 Urine Specific [place] >=1.030 1.016-1.022 Urine Protein 2+ H NEGATIVE Urine Glucose (UA) NEGATIVE NEGATIVE Urine Ketones NEGATIVE NEGATIVE Urine Nitrite NEGATIVE NEGATIVE Urine Bilirubin NEGATIVE NEGATIVE Urine Urobilinogen 0.2 < = 1.0 MG/DL Urine Leukocyte Esterase NEGATIVE NEGATIVE Urine RBC (Auto) 1+ H NEGATIVE Urine RBC 2-5 H /HPF Urine WBC 5-10 H /HPF Urine Squamous Epithelial Cells RARE /HPF Urine Crystals PRESENT H /LPF Urine Calcium Oxalate Crystals MODERATE H /LPF Urine Bacteria NEGATIVE /HPF Urine Casts NONE /LPF Urine Mucus NEGATIVE /LPF Urine Culture Indicated YES (APOLLO GROSS) My Orders Orders - APOLLO GROSS Ua Culture If Indicated (10/21/19 12:07) Cbc With Automated Diff (10/21/19 12:46) Comprehensive Metabolic Panel (10/21/19 12:46) Lipase (10/21/19 12:46) Ondansetron Injection (Zofran Injectio (10/21/19 13:00) Ed Iv/Invasive Line Start (10/21/19 12:46) Ns Iv 1000 Ml (Sodium Chloride 0.9%) (10/21/19 12:46) Acetaminophen Tablet (Tylenol Tablet) (10/21/19 15:00) Urine Culture (10/21/19 15:00) Ceftriaxone For Iv Use (Rocephin For I (10/21/19 16:00) Ed Iv/Invasive Line Start (10/21/19 15:55) Ns (Ivpb) (Sodium Chloride 0.9%) (10/21/19 15:55) Promethazine Injection (Phenergan Injec (10/21/19 16:00) Diphenhydramine Injection (Benadryl Inje (10/21/19 16:00) (APOLLO GROSS) Medications Given in ED Current Medications Medications Dose Ordered Sig/Ninfa Route Start Time Stop Time Status Last Admin Dose Admin Acetaminophen 1,000 mg ONCE ONCE PO 10/21/19 15:00 10/21/19 15:01 DC 10/21/19 15:08 1,000 MG Ceftriaxone Sodium 1000 mg/ Sterile Water 10 ml @ 200 mls/hr ONCE ONCE IV 10/21/19 16:00 10/21/19 16:02 DC 10/21/19 16:16 200 MLS/HR Diphenhydramine HCl 25 mg ONCE ONCE IVP 10/21/19 16:00 10/21/19 16:01 DC 10/21/19 16:17 25 MG Ondansetron HCl 8 mg ONCE ONCE IVP 10/21/19 13:00 10/21/19 13:01 DC 10/21/19 12:55 8 MG Promethazine HCl 25 mg ONCE ONCE IVP 10/21/19 16:00 10/21/19 16:01 DC 10/21/19 16:16 25 MG Sodium Chloride 250 ml @ 0 mls/hr Q0M ONCE IV 10/21/19 15:55 10/21/19 15:57 DC 10/21/19 16:17 0 MLS/HR (APOLLO GROSS) Vital Signs/I&O 10/21/19 10/21/19 12:06 16:52 Temp 36.4 Pulse 103 100 Resp 20 20 B/P (MAP) 125/86 (99) 118/67 Pulse Ox 99 98 O2 Delivery Room Air (APOLLO GROSS) Blood Pressure Mean: 99 Progress Progress Note #1: Time: 12:58 Progress Note Plan to give her 8 mg Zofran IV as well as a liter of saline to start. We'll check some labs including a lipase and urinalysis. Concern for urinary tract infection related to recent stent replacement. If she is feeling better and her labs are okay then we will allow her to return home and follow-up tomorrow with oncology. She is okay with this plan. I attest that I saw this patient alongside the medical student and agree with his documented history, physical exam and review of systems except as otherwise noted. Progress Note #2: Time: 15:00 Progress Note The patient's nausea is better and her fluids are done. She has mild headache and thousand milligrams of Tylenol ordered. She is going to attempt to make some urine. Progress Note #3: Time: 16:00 Progress Note Nausea is significantly improved but she still having some and would like something else. She's had Compazine in the past several times which causes a dystonic reaction so she does not take any more. She has tolerated Phenergan in the past. We will give her Phenergan plus Benadryl into 150 cc of fluid. We have discussed observation stay for IV antibiotics and fluids versus going home with her follow-up with her oncologist tomorrow morning. She would much prefer to go home. We'll give her Rocephin today and put her out on cefdinir. (APOLLO GROSS) Diagnostic Imaging Diagonstic Imaging: CT Comments [facility]. [place], [place] NAME: SUZIE MILLER [facility] REC#: [id number] PT STATUS: REG CLI : 1960 PHYSICIAN: HUY STONE MD ADMIT DATE: 10/20/19/RAD Signed Date of Exam:10/20/19 CT CHEST/ABDOMEN/PELVIS W PROCEDURE: CT chest, abdomen, and pelvis with contrast. TECHNIQUE: Multiple contiguous axial images were obtained through the chest, abdomen, and pelvis after the administration of intravenous contrast. Auto Exposure Controls were utilized during the CT exam to meet ALARA standards for radiation dose reduction. INDICATION: Right breast carcinoma. COMPARISON: Correlation is made with prior CT chest from 05/12/[address] abdomen and pelvis from 06/11/2019. FINDINGS: CT chest: A right chest wall port has tip at the SVC right atrial junction. There are postoperative changes to the right breast. No axillary lymphadenopathy is identified. No internal mammary lymphadenopathy is detected. No mediastinal or hilar lymphadenopathy is detected. There is no pericardial or pleural fluid. Parenchymal evaluation does show some linear scarring or atelectasis in the superior segment of right lower lobe. Calcified granuloma in left lower lobe. No noncalcified mass is identified. Osteoblastic and osteolytic metastatic disease throughout the thoracic spine and sternum is again noted. IMPRESSION: 1. No evidence of thoracic lymphadenopathy or pulmonary metastatic disease. 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 CT abdomen and pelvis: Cystic-appearing lesions within the liver are again noted. Gallbladder is unremarkable. There is no biliary ductal dilatation. The pancreas and spleen are unremarkable. No adrenal mass is detected. Right kidney is unremarkable. There is a left-sided nephroureteral stent extending from the left kidney into the urinary bladder. There continues to be a moderate abdominal and pelvic ascites. There is a peritoneal catheter present. Overall volume of ascites has decreased since prior CT. There continues to be enhancement to the peritoneum. There is some hazy infiltration of the omentum suggestive of some omental caking. Slight nodularity in the left upper quadrant is seen in the omentum. Bowel loops appear to be normal caliber. There is some generalized bowel wall thickening throughout small and large bowel loops, perhaps on base of ascites. The bladder is decompressed. No free air is seen. Diffuse osteolytic and osteoblastic metastatic disease throughout the lumbar spine and pelvis is noted. IMPRESSION: Moderate abdominal and pelvic ascites. Ascites has decreased since prior CT, status post peritoneal drain placement. There is infiltration and some nodularity to the omentum. Features are suggestive of peritoneal carcinomatosis. No definite bowel obstruction is seen at this time. 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 Dictated by: Dictated on workstation # [id number] Dict: 10/20/19 1041 Trans: 10/20/19 1531 [facility] [id number] Interpreted by: ANGELITA WING MD Electronically signed by: ANGELITA WING MD 10/20/19 1531 Reviewed: Reviewed by Me (APOLLO GROSS) Departure Impression Primary Impression: Urinary tract infection Qualified Codes: N30.00 - Acute cystitis without hematuria Disposition: HOME, SELF-CARE Condition: Improved Departure-Patient Inst. Decision time for Depature: 16:01 (APOLLO GROSS) Referrals: FADY HUFFMAN DO (PCP/Family) Primary Care Physician Patient Instructions: Urinary Tract Infection, Adult (DC) Add. Discharge Instructions: Start taking the cefdinir twice a day tomorrow morning. Drink lots of fluids. Keep your follow-up appointment with Dr. Stone. Return to the ER promptly if you begin to experience fevers, intractable nausea and vomiting or other worrisome symptoms. All discharge instructions reviewed with patient and/or family. Voiced understanding. Scripts Cefdinir (Cefdinir) 300 Mg Capsule 300 MG PO BID for 10 Days, #20 CAP 0 Refills Prov: APOLLO GROSS 10/21/19 Copy Copies To 1: HUY STONE MD, EVAN MED STUDENT Oct 21, 2019 12:43 APOLLO GROSS Oct 21, 2019 13:00
[2019-10-21] MEDS ORDERED: NS IV 1000 ML 1,000 ML IV SCH (12:46)
[2019-10-21] MEDS ORDERED: ONDANSETRON 4 MG/2 ML (SDV) Z0FRAN IVP ONE (13:00)
[2019-10-21 13:18] LABS: BASOPHILS % (AUTO) 0 % (0-10); EOSINOPHILS % (AUTO) 0 % (0-10); HEMATOCRIT 27 % (35-52); HEMOGLOBIN 8.3 G/DL (11.5-16.0); LYMPHOCYTES # (AUTO) 1.1 X 10^3 (1.0-4.0); LYMPHOCYTES % (AUTO) 13 % (12-44); MEAN CORPUSCULAR HEMOGLOBIN 27 PG (25-34); MEAN CORPUSCULAR HGB CONC 31 G/DL (32-36); MEAN CORPUSCULAR VOLUME 90 FL (80-99); MEAN PLATELET VOLUME 9.1 FL (7.4-10.4); MONOCYTES # (AUTO) 0.7 X 10^3 (0.0-1.0); MONOCYTES % (AUTO) 8 % (0-12); NEUTROPHILS # (AUTO) 6.6 X 10^3 (1.8-7.8); NEUTROPHILS % (AUTO) 78 % (42-75); PLATELET COUNT 455 10^3/uL (130-400); RED CELL DISTRIBUTION WIDTH 18.7 % (10.0-14.5); WHITE BLOOD COUNT 8.4 10^3/uL (4.3-11.0)
[2019-10-21 13:39] LABS: ALANINE AMINOTRANSFERASE 9 U/L (0-55); ALBUMIN 2.4 GM/DL (3.2-4.5); ALKALINE PHOSPHATASE 109 U/L (40-136); BILIRUBIN,TOTAL 0.2 MG/DL (0.1-1.0); BUN/CREATININE RATIO 15; CALCIUM 8.6 MG/DL (8.5-10.1); CARBON DIOXIDE 20 MMOL/L (21-32); CHLORIDE 99 MMOL/L (98-107); CREATININE SERUM 0.72 MG/DL (0.60-1.30); GFR ESTIMATED > 60; GLUCOSE 79 MG/DL (70-105); LIPASE 8 U/L (8-78); POTASSIUM 3.8 MMOL/L (3.6-5.0); SODIUM 132 MMOL/L (135-145); TOTAL PROTEIN 5.3 GM/DL (6.4-8.2)
[2019-10-21] MEDS ORDERED: ACETAMINOPHEN 500 MG TAB (TYLENOL) PO ONE (15:00)
[2019-10-21 15:09] LABS: BILIRUBIN,URINE NEGATIVE (NEGATIVE); CLARITY,URINE CLEAR; COLOR,URINE YELLOW; GLUCOSE, URINE (UA) NEGATIVE (NEGATIVE); KETONES,URINE NEGATIVE (NEGATIVE); LEUKOCYTE ESTERASE ,URINE NEGATIVE (NEGATIVE); NITRITE,URINE NEGATIVE (NEGATIVE); PROTEIN,URINE 2+ (NEGATIVE)
[2019-10-21 15:26] LABS: BACTERIA,URINE NEGATIVE /HPF; CALCIUM OXALATE CRYSTALS,UR MODERATE /LPF; SQUAMOUS EPITHELIAL CELL,UR RARE /HPF
[2019-10-21] MEDS ORDERED: NS (IVPB) 250 ML IV ONE (15:55)
[2019-10-21] MEDS ORDERED: diphenhydrAMINE 50 MG/ML INJ (BENADRYL) IVP ONE (16:00)
[2019-10-21] MEDS ORDERED: cefTRIAXone FOR IV USE 1,000 MG in WATER (STERILE) FOR INJECTION 10 ML IV ONE (16:00)
[2019-10-21] MEDS ORDERED: PROMETHAZINE INJ 25 MG/ML (PHENERGAN) AMP IVP ONE (16:00)
[2019-10-21] MEDS ORDERED: CEFD300C3 PO (16:02)
[2019-10-21 16:52] VITALS: BP 118/67
--- OUTSIDE RECORDS SUMMARY | 2019-10-21 17:50 | XMS REPORT ---
Author Author Macey Frank Organization [facility] Address [address] [place], [place] [id number] Care Team Providers Care Restrictive Preparation Operator Name Role Phone Home Frank PCP Allergies and Adverse Reactions Name Reaction Notes Compazine aspirin Plan of Treatment Planned Activity Comments Planned Date Planned Time Plan/Goal MAWD 10/12/2019 12:00 AM Medications Active Name Start Date Estimated Completion [...] 1:09PM Preoperative examination Jul 30 2019 11:36AM Preoperative examination Oct 12 2019 1:14PM Payers Insurance Name Company Name Plan Name Plan Number Policy Number [place] Group Number Start Date Medicare Part B Medicare Of [place] [id number] N/A [facility] [id number] N/A History of Encounters Visit Date Visit Type Provider 08/02/2019 Surgery Home Frank MD 07/27/2019 Office visit EITAN KRUGER APRN 05/25/2019 Office visit Home Frank MD 05/25/2019 Surgery Home Frank MD 04/15/2019 Office visit EITAN KRUGER ENVIRONMENTAL SCIENCE INSTRUCTOR
--- OUTSIDE RECORDS SUMMARY | 2019-10-21 17:50 | XMS REPORT ---
Author Author Macey Frank Organization [facility] Address [address] [place], [place] [id number] Care Team Providers Care Renal Technician Name Role Phone Home Frank PCP [...] 11:36AM Preoperative examination Oct 12 2019 1:14PM UTI (urinary tract infection) Oct 14 2019 2:36PM Hydronephrosis Oct 14 2019 2:36PM Breast cancer Oct 14 2019 2:36PM Payers Insurance Name Company Name Plan Name Plan Number Policy Number Rivera cy Group Number Start Date Medicare Part B Medicare Of [place] [id number] N/A [facility] Claims [place] [id number] N/A History of Encounters Visit Date Visit Type Provider 08/02/2019 Surgery Home Frank MD 07/27/2019 Office visit EITAN KRUGER APRN 05/25/2019 Office visit Home Frank MD 05/25/2019 Surgery Home Frank MD 04/15/2019 Office visit EITAN KRUGER APARTMENT MAINTENANCE WORKER
--- OUTSIDE RECORDS SUMMARY | 2019-10-21 17:50 | XMS REPORT ---
Author Author Macey Frank Organization [facility] Address [address] [place], [place] [id number] Care Team Providers Care Compliance Advisor Name Role Phone Home Frank PCP Allergies [...] Date Medicare Part B Medicare Of [place] [id number] [facility] [place] [id number] N/A History of Encounters Visit Date Visit Type Provider 08/02/2019 Surgery Home Frank MD 07/27/2019 Office visit EITAN KRUGER APRN 05/25/2019 Office visit Home Frank MD 05/25/2019 Surgery Home Frank MD 04/15/2019 Office visit EITAN KRUGER OIL WELL SERVICE OPERATOR HELPER
--- OUTSIDE RECORDS SUMMARY | 2019-10-21 17:52 | XMS REPORT | Continuity of Care Document ---
Demographics Preferred Language Unknown Marital Status Unknown Faith Affiliation Unknown Race Unknown Ethnic Group Unknown Author Organization Unknown Address Unknown Phone Unavailable Allergies Active Description Code Type Severity Reaction Onset Reported/Identified Relationship to Patient Clinical Status Yes ASPIRIN [id number] DRUG N/A N/A Yes COMPAZINE [id number] DRUG N/A N/A Yes PROCHLORPERAZINE [id number] DRUG N/A N/A Yes aspirin [id number] Drug Allergy Unknown N/A 01/13/2018 Yes morphine [id number] Drug Allergy Moderate Itching 04/18/2019 Yes prochlorperazine [id number] Drug Allergy Unknown N/A 06/11/2019 Medications There is no data. 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 02/13/1055 HUY STONE MD Ot Z79.899 OTHER FPC (CURRENT) DRUG THERAPY 02/13/1055 HUY STONE MD [...] 02/11/2018 HUY STONE MD Ot Z79.899 OTHER BUSINESS IMPROVEMENT MANAGER (CURRENT) DRUG THERAPY 02/11/2018 HUY STONE MD [...] 02/17/2018 HUY STONE MD Ot Z79.899 OTHER BUSINESS IMPROVEMENT MANAGER (CURRENT) DRUG THERAPY 02/17/2018 HUY STONE MD [...] 03/02/2018 HUY STONE MD Ot Z79.899 OTHER FPC (CURRENT) DRUG THERAPY 03/02/2018 HUY STONE MD [...] 03/02/2018 HUY STONE MD Ot Z79.899 OTHER BUSINESS IMPROVEMENT MANAGER (CURRENT) DRUG THERAPY 03/02/2018 HUY STONE MD [...] 03/03/2018 HUY STONE MD Ot Z79.899 OTHER BUSINESS IMPROVEMENT MANAGER (CURRENT) DRUG THERAPY 03/03/2018 HUY STONE MD [...] 04/13/2018 HUY STONE MD Ot Z79.899 OTHER FPC (CURRENT) DRUG THERAPY 04/13/2018 HUY STONE MD [...] SECONDARY MALIGNANT NEOPLASM OF BONE 04/14/2018 HUY STOEN MD Ot Z79.899 OTHER FPC (CURRENT) DRUG THERAPY 04/14/2018 HUY STONE MD [...] 05/31/2018 HUY STONE MD Ot Z79.899 OTHER BUSINESS IMPROVEMENT MANAGER (CURRENT) DRUG THERAPY 05/31/2018 HUY STONE MD [...] 06/01/2018 HUY STONE MD, Ot Z79.899 OTHER FPC (CURRENT) DRUG THERAPY 06/01/2018 HUY STONE MD [...] 06/03/2018 HUY STONE MD Ot Z79.899 OTHER BUSINESS IMPROVEMENT MANAGER (CURRENT) DRUG THERAPY 06/03/2018 HUY STONE MD [...] 06/04/2018 HUY STONE MD, Ot Z79.899 OTHER FPC (CURRENT) DRUG THERAPY 06/04/2018 HUY STONE MD, [...] 06/06/2018 HUY STONE MD Ot Z79.899 OTHER FPC (CURRENT) DRUG THERAPY 06/06/2018 HUY STONE MD [...] 07/08/2018 HUY STONE MD Ot Z79.899 OTHER FPC (CURRENT) DRUG THERAPY 07/08/2018 HUY STONE MD [...] 07/14/2018 HUY STONE MD Ot Z79.899 OTHER BUSINESS IMPROVEMENT MANAGER (CURRENT) DRUG THERAPY 07/14/2018 HUY STONE MD [...] 08/05/2018 HUY STONE MD Ot Z79.899 OTHER BUSINESS IMPROVEMENT MANAGER (CURRENT) DRUG THERAPY 08/05/2018 HUY STONE MD [...] 08/05/2018 HUY STONE MD Ot Z79.899 OTHER FPC (CURRENT) DRUG THERAPY 08/05/2018 HUY STONE MD [...] 08/17/2018 HUY STONE MD Ot Z79.899 OTHER FPC (CURRENT) DRUG THERAPY 08/17/2018 HUY STONE MD [...] 09/01/2018 HUY STONE MD Ot Z79.899 OTHER FPC (CURRENT) DRUG THERAPY 09/01/2018 HUY STONE MD [...] 09/03/2018 ERIC BRADY MD Ot Z79.899 OTHER BUSINESS IMPROVEMENT MANAGER (CURRENT) DRUG THERAPY 09/03/2018 ERIC BRADY MD [...] 09/03/2018 ERIC BRADY MD Ot Z79.899 OTHER FPC (CURRENT) DRUG THERAPY 09/03/2018 ERIC BRADY MD Ot Z90.11 ACQUIRED ABSENCE OF RIGHT BREAST AND NIP 09/03/2018 ERIC BRADY MD Ot Z90.79 ACQUIRED ABSENCE OF OTHER GENITAL ORGAN( 09/03/2018 HUY STONE MD, Ot 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 0 ENCOUNTER FOR ANTINEOPLASTIC RADIATION T 09/03/2018 HUY STONE MD Ot Z79.899 OTHER FPC (CURRENT) DRUG THERAPY 09/03/2018 HUY STONE MD Ot Z90. 11 ACQUIRED ABSENCE OF RIGHT BREAST AND NIP 09/03/2018 HUY STONE MD Ot Z90. 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 0 ENCOUNTER FOR ANTINEOPLASTIC RADIATION T 09/04/2018 HUY STONE MD Ot Z79.899 OTHER BUSINESS IMPROVEMENT MANAGER (CURRENT) DRUG THERAPY 09/04/2018 HUY STONE MD [...] 09/23/2018 HUY STONE MD Ot Z79.899 OTHER FPC (CURRENT) DRUG THERAPY 09/23/2018 HUY STONE MD [...] SECONDARY MALIGNANT NEOPLASM OF BONE 10/16/2018 HUY TSONE MD Ot Z51. 0 ENCOUNTER FOR ANTINEOPLASTIC RADIATION T 10/16/2018 HUY STONE MD Ot Z79.899 OTHER FPC (CURRENT) DRUG THERAPY 10/16/2018 HUY STONE MD [...] 10/20/2018 HUY STONE MD Ot Z79.899 OTHER BUSINESS IMPROVEMENT MANAGER (CURRENT) DRUG THERAPY 10/20/2018 HUY STONE MD [...] 12/02/2018 HUY STONE MD Ot Z79.899 OTHER BUSINESS IMPROVEMENT MANAGER (CURRENT) DRUG THERAPY 12/02/2018 HUY STONE MD [...] 12/03/2018 HUY STONE MD Ot Z79.899 OTHER BUSINESS IMPROVEMENT MANAGER (CURRENT) DRUG THERAPY 12/03/2018 HUY STONE MD [...] 12/09/2018 HUY STONE MD Ot Z79.899 OTHER BUSINESS IMPROVEMENT MANAGER (CURRENT) DRUG THERAPY 12/09/2018 HUY STONE MD [...] 12/24/2018 HUY STONE MD Ot Z79.899 OTHER BUSINESS IMPROVEMENT MANAGER (CURRENT) DRUG THERAPY 12/24/2018 HUY STONE MD [...] 01/11/2019 HUY STONE MD Ot Z79.899 OTHER BUSINESS IMPROVEMENT MANAGER (CURRENT) DRUG THERAPY 01/11/2019 HUY STONE MD [...] 03/09/2019 HUY STONE MD Ot Z79.899 OTHER BUSINESS IMPROVEMENT MANAGER (CURRENT) DRUG THERAPY 03/09/2019 HUY STONE MD [...] 03/11/2019 HUY STONE MD Ot Z79.899 OTHER BUSINESS IMPROVEMENT MANAGER (CURRENT) DRUG THERAPY 03/11/2019 HUY STONE MD [...] 03/22/2019 HUY STONE MD Ot Z79.899 OTHER FPC (CURRENT) DRUG THERAPY 03/22/2019 HUY STONE MD [...] 03/22/2019 HUY STONE MD Ot Z79.899 OTHER FPC (CURRENT) DRUG THERAPY 03/22/2019 HUY STONE MD [...] 03/23/2019 HUY STONE MD Ot Z79.899 OTHER FPC (CURRENT) DRUG THERAPY 03/23/2019 HUY STONE MD [...] 2019 HUY STONE MD Ot Z79.899 OTHER BUSINESS IMPROVEMENT MANAGER (CURRENT) DRUG THERAPY 2019 HUY STONE MD [...] 04/12/2019 HUY STONE MD Ot Z79.899 OTHER BUSINESS IMPROVEMENT MANAGER (CURRENT) DRUG THERAPY 04/12/2019 UHY STONE MD Ot Z90. 11 ACQUIRED [...] 04/12/2019 HUY STONE MD Ot Z79.899 OTHER FPC (CURRENT) DRUG THERAPY 04/12/2019 HUY STONE MD, [...] 04/13/2019 HUY STONE MD Ot Z79.899 OTHER BUSINESS IMPROVEMENT MANAGER (CURRENT) DRUG THERAPY 04/13/2019 HUY STONE MD, [...] 51 SECONDARY MALIGNANT NEOPLASM OF BONE 04/14/2019 UHY STONE MD Ot Z79.899 OTHER FPC (CURRENT) DRUG THERAPY 04/14/2019 HUY STONE MD, [...] 04/14/2019 HUY STONE MD Ot Z79.899 OTHER BUSINESS IMPROVEMENT MANAGER (CURRENT) DRUG THERAPY 04/14/2019 HUY STONE MD, Ot Z90. 11 ACQUIRED ABSENCE OF RIGHT BREAST AND NIP 04/14/2019 HUY STONE MD, Ot Z90. 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 8 OTHER ASCITES [...] 04/14/2019 HUY STONE MD, Ot Z79.899 OTHER FPC (CURRENT) DRUG THERAPY 04/14/2019 HUY STONE MD, [...] 04/17/2019 HUY STONE MD, Ot Z79.899 OTHER BUSINESS IMPROVEMENT MANAGER (CURRENT) DRUG THERAPY 04/17/2019 HUY STONE MD, [...] 04/17/2019 HUY STONE MD, Ot Z79.899 OTHER BUSINESS IMPROVEMENT MANAGER (CURRENT) DRUG THERAPY 04/17/2019 HUY STONE MD, [...] 04/17/2019 HUY STONE MD, Ot Z79.899 OTHER FPC (CURRENT) DRUG THERAPY 04/17/2019 HUY STONE MD, [...] 04/17/2019 HUY STONE MD, Ot Z79.899 OTHER BUSINESS IMPROVEMENT MANAGER (CURRENT) DRUG THERAPY 04/17/2019 HUY STONE MD, [...] 51 SECONDARY MALIGNANT NEOPLASM OF BONE 04/17/2019 UHY STONE MD, Ot Z79.899 OTHER BUSINESS IMPROVEMENT MANAGER (CURRENT) DRUG THERAPY 04/17/2019 HUY STONE MD, [...] 04/19/2019 HUY STONE MD, Ot Z79.899 OTHER BUSINESS IMPROVEMENT MANAGER (CURRENT) DRUG THERAPY 04/19/2019 HUY STONE MD, [...] 04/21/2019 HUY STONE MD Ot Z79.899 OTHER BUSINESS IMPROVEMENT MANAGER (CURRENT) DRUG THERAPY 04/21/2019 HUY STONE MD, [...] Desirae Ot J45.909 UNSPECIFIED ASTHMA, UNCOMPLICATED 04/21/2019 LENAAYMGET Desirae Ot K21.9 GASTRO-ESOPHAGEAL REFLUX DISEASE WITHOUT [...] 04/21/2019 HUY STONE MD, Ot Z79.899 OTHER FPC (CURRENT) DRUG THERAPY 04/21/2019 HUY STONE MD, [...] 04/21/2019 HUY STONE MD Ot Z79.899 OTHER BUSINESS IMPROVEMENT MANAGER (CURRENT) DRUG THERAPY 04/21/2019 HUY STONE MD, [...] 04/21/2019 HUY STONE MD Ot Z79.899 OTHER FPC (CURRENT) DRUG THERAPY 04/21/2019 HUY STONE MD, [...] 04/21/2019 HUY STONE MD, Ot Z79.899 OTHER FPC (CURRENT) DRUG THERAPY 04/21/2019 HUY STONE MD, [...] 04/22/2019 HUY STONE MD, Ot Z79.899 OTHER FPC (CURRENT) DRUG THERAPY 04/22/2019 HUY STONE MD, [...] 04/29/2019 HUY STONE MD, Ot Z79.899 OTHER FPC (CURRENT) DRUG THERAPY 04/29/2019 HUY STONE MD, [...] 04/29/2019 HUY STONE MD, Ot Z79.899 OTHER FPC (CURRENT) DRUG THERAPY 04/29/2019 HUY STONE MD, Ot Z90. 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 51 SECONDARY [...] 04/30/2019 HUY STONE MD, Ot Z79.899 OTHER BUSINESS IMPROVEMENT MANAGER (CURRENT) DRUG THERAPY 04/30/2019 HUY STONE MD, [...] MALIG NEOPLM OF LOWER-INNER QUADRANT OF 04/30/2019 HYU STONE MD, Ot C78. 6 SECONDARY [...] Ladd Ot R18.8 OTHER ASCITES 04/30/2019 NICKIE PREDOMO DO Ot R18. 8 OTHER ASCITES 04/30/2019 [...] 05/04/2019 HUY STONE MD, Ot Z79.899 OTHER FPC (CURRENT) DRUG THERAPY 05/04/2019 HUY STONE MD, [...] 05/04/2019 HUY STONE MD, Ot Z79.899 OTHER FPC (CURRENT) DRUG THERAPY 05/04/2019 HUY STONE MD, Ot Z85. 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 05/05/2019 HUY STONE MD, Ot Z79.899 OTHER FPC (CURRENT) DRUG THERAPY 05/05/2019 HUY STONE MD, [...] K76.89 OTHER SPECIFIED DISEASES OF LIVER 05/05/2019 ITCO GALAN MD Ot K82.8 OTHER SPECIFIED DISEASES [...] 05/05/2019 HUY STONE MD, Ot Z79.899 OTHER FPC (CURRENT) DRUG THERAPY 05/05/2019 HUY STONE MD, [...] IMM 05/06/2019 HUY STONE MD, Ot Z79.891 FPC (CURRENT) USE OF OPIATE ANALGE 05/06/2019 HUY STONE MD, Ot Z79.899 OTHER FPC (CURRENT) DRUG THERAPY 05/06/2019 HUY STONE MD, [...] 05/10/2019 HUY STONE MD, Ot Z79.899 OTHER FPC (CURRENT) DRUG THERAPY 05/10/2019 HUY STONE MD, [...] 05/10/2019 HUY STONE MD Ot Z79.899 OTHER FPC (CURRENT) DRUG THERAPY 05/10/2019 HUY STONE MD, [...] 05/11/2019 HUY STONE MD Ot Z79.899 OTHER FPC (CURRENT) DRUG THERAPY 05/11/2019 HUY STONE MD, [...] 05/11/2019 HUY STONE MD, Ot Z79.899 OTHER FPC (CURRENT) DRUG THERAPY 05/11/2019 HUY STONE MD, [...] 05/11/2019 HUY STONE MD Ot Z79.899 OTHER BUSINESS IMPROVEMENT MANAGER (CURRENT) DRUG THERAPY 05/11/2019 HUY STONE MD, [...] 05/11/2019 HUY STONE MD, Ot Z79.899 OTHER BUSINESS IMPROVEMENT MANAGER (CURRENT) DRUG THERAPY 05/11/2019 HUY STONE MD, [...] TRACT INFECTION, SITE NOT SPECIF 05/22/2019 CADEN HARDNI MD Ot R50.9 FEVER, UNSPECIFIED 05/22/2019 CADEN [...] MD Ot R50.9 FEVER, UNSPECIFIED 06/02/2019 CADEN HADRIN MD, Ot Z88.5 ALLERGY STATUS TO NARCOTIC [...] 06/03/2019 HUY STONE MD Ot Z79.899 OTHER BUSINESS IMPROVEMENT MANAGER (CURRENT) DRUG THERAPY 06/03/2019 HUY STONE MD [...] 06/03/2019 HUY STONE MD Ot Z79.899 OTHER FPC (CURRENT) DRUG THERAPY 06/03/2019 HUY STONE MD [...] OTHER SPECIFIED DISEASES OF INTESTINE 06/03/2019 HUY STNOE MD Ot R18. 8 OTHER ASCITES 06/03/2019 [...] 51 SECONDARY MALIGNANT NEOPLASM OF BONE 06/03/2019 O'FALLON DO, NICKIE Zuleta Ot R18. 8 OTHER [...] 06/11/2019 HUY STONE MD, Ot Z79.899 OTHER FPC (CURRENT) DRUG THERAPY 06/11/2019 HUY STONE MD, [...] 06/20/2019 HUY STONE MD, Ot Z79.899 OTHER BUSINESS IMPROVEMENT MANAGER (CURRENT) DRUG THERAPY 06/20/2019 HUY STONE MD, [...] 06/22/2019 HUY STONE MD, Ot Z79.899 OTHER FPC (CURRENT) DRUG THERAPY 06/22/2019 HUY STONE MD, [...] 06/28/2019 HUY STONE MD Ot Z79.899 OTHER BUSINESS IMPROVEMENT MANAGER (CURRENT) DRUG THERAPY 06/28/2019 HUY STONE MD [...] 07/08/2019 HUY STONE MD Ot Z79.899 OTHER FPC (CURRENT) DRUG THERAPY 07/08/2019 HUY STONE MD [...] 07/28/2019 HUY STONE MD, Ot Z79.899 OTHER BUSINESS IMPROVEMENT MANAGER (CURRENT) DRUG THERAPY 07/28/2019 HUY STONE MD, [...] 07/28/2019 HUY STONE MD, Ot Z79.899 OTHER BUSINESS IMPROVEMENT MANAGER (CURRENT) DRUG THERAPY 07/28/2019 HUY STONE MD, [...] GALAN MD Ot R18.8 OTHER ASCITES 07/28/2019 PEDROMO DO, NICKIE D Ot R18. 8 OTHER [...] 07/28/2019 HUY STONE MD, Ot Z79.899 OTHER FPC (CURRENT) DRUG THERAPY 07/28/2019 HUY STONE MD, [...] Ot R18. 8 OTHER ASCITES 08/05/2019 HUY STOEN MD, Ot Z79.899 OTHER BUSINESS IMPROVEMENT MANAGER (CURRENT) DRUG THERAPY 08/05/2019 HUY STONE MD, [...] 08/10/2019 HUY STONE MD Ot Z79.899 OTHER BUSINESS IMPROVEMENT MANAGER (CURRENT) DRUG THERAPY 08/10/2019 HUY STONE MD, [...] 08/12/2019 HUY STONE MD Ot Z79.899 OTHER BUSINESS IMPROVEMENT MANAGER (CURRENT) DRUG THERAPY 08/12/2019 HUY STONE MD [...] 09/02/2019 HUY STONE MD Ot Z79.899 OTHER BUSINESS IMPROVEMENT MANAGER (CURRENT) DRUG THERAPY 09/02/2019 HUY STONE MD Ot Z90. 11 ACQUIRED ABSENCE OF RIGHT BREAST AND NIP 09/02/2019 HUY STONE MD Ot Z90. 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 8 OTHER ASCITES 09/22/2019 HUY STONE MD, Ot Z79.899 OTHER BUSINESS IMPROVEMENT MANAGER (CURRENT) DRUG THERAPY 09/22/2019 HUY STONE MD, Ot Z90. 11 ACQUIRED ABSENCE OF RIGHT BREAST AND NIP 09/22/2019 HUY STONE MD, Ot Z90. 79 ACQUIRED ABSENCE OF OTHER GENITAL ORGAN( 09/22/2019 TASHA SMITH MD Ot A41. 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 9 ANEMIA, UNSPECIFIED 09/22/2019 TASHA SMITH MD Ot F32. 9 MAJOR DEPRESSIVE DISORDER, SINGLE EPISOD 09/22/2019 TASHA SMITH MD Ot F90. 9 ATTENTION-DEFICIT HYPERACTIVITY DISORDER 09/22/2019 TASHA SMITH MD Ot G47. 9 SLEEP DISORDER, UNSPECIFIED 09/22/2019 TASHA SMITH MD Ot G62. 9 POLYNEUROPATHY, UNSPECIFIED 09/22/2019 TASHA SMITH MD Ot I10 ESSENTIAL (PRIMARY) HYPERTENSION 09/22/2019 TASHA SMITH MD Ot J45.909 UNSPECIFIED ASTHMA, UNCOMPLICATED 09/22/2019 TASHA SMITH MD Ot K21. 9 GASTRO-ESOPHAGEAL REFLUX DISEASE WITHOUT 09/22/2019 TASHA SMITH MD Ot N39. 0 URINARY TRACT INFECTION, SITE NOT SPECIF 09/22/2019 TASHA SMITH MD Ot Z79.899 OTHER FPC (CURRENT) DRUG THERAPY 09/22/2019 TASHA SMITH MD Ot Z85. 3 PERSONAL HISTORY OF MALIGNANT NEOPLASM O 09/22/2019 TASHA SMITH MD Ot Z98.890 OTHER SPECIFIED POSTPROCEDURAL STATES 09/23/2019 TASHA SMITH MD Ot A41. 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 9 ANEMIA, UNSPECIFIED 09/23/2019 TASHA SMITH MD Ot F32. 9 MAJOR DEPRESSIVE DISORDER, SINGLE EPISOD 09/23/2019 TASHA SMITH MD Ot F90. 9 ATTENTION-DEFICIT HYPERACTIVITY DISORDER 09/23/2019 TASHA SMITH MD Ot G47. 9 SLEEP DISORDER, UNSPECIFIED 09/23/2019 TSAHA SMITH MD Ot G62. 9 POLYNEUROPATHY, UNSPECIFIED 09/23/2019 TASHA SMITH MD Ot I10 ESSENTIAL (PRIMARY) HYPERTENSION 09/23/2019 TASHA SMITH MD Ot J45.909 UNSPECIFIED ASTHMA, UNCOMPLICATED 09/23/2019 TASHA SMITH MD Ot K21. 9 GASTRO-ESOPHAGEAL REFLUX DISEASE WITHOUT 09/23/2019 TASHA SMITH MD Ot N39. 0 URINARY TRACT INFECTION, SITE NOT SPECIF 09/23/2019 TASHA SMITH MD Ot R18. 0 MALIGNANT ASCITES 09/23/2019 TASHA SMITH MD Ot Z79.899 OTHER FPC (CURRENT) DRUG THERAPY 09/23/2019 TASHA SMITH MD Ot Z98.890 OTHER SPECIFIED POSTPROCEDURAL STATES 09/23/2019 TASHA SMITH MD Ot A41. 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 9 ANEMIA, UNSPECIFIED 09/23/2019 TASHA SMITH MD Ot F32. 9 MAJOR DEPRESSIVE DISORDER, SINGLE EPISOD 09/23/2019 TASHA SMITH MD Ot F90. 9 ATTENTION-DEFICIT HYPERACTIVITY DISORDER 09/23/2019 TASHA SMITH MD Ot G47. 9 SLEEP DISORDER, UNSPECIFIED 09/23/2019 TASHA SMITH MD, Ot G62. 9 POLYNEUROPATHY, UNSPECIFIED 09/23/2019 TASHA SMITH MD Ot I10 ESSENTIAL (PRIMARY) HYPERTENSION 09/23/2019 TASHA SMITH MD Ot J45.909 UNSPECIFIED ASTHMA, UNCOMPLICATED 09/23/2019 TASHA SMITH MD Ot K21. 9 GASTRO-ESOPHAGEAL REFLUX DISEASE WITHOUT 09/23/2019 TASHA SMITH MD Ot N39. 0 URINARY TRACT INFECTION, SITE NOT SPECIF 09/23/2019 TASHA SMITH MD, Ot Z79.899 OTHER BUSINESS IMPROVEMENT MANAGER (CURRENT) DRUG THERAPY 09/23/2019 TASHA SMITH MD Ot Z85. 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 8 OTHER ASCITES 09/23/2019 HUY STONE MD, Ot Z79.899 OTHER BUSINESS IMPROVEMENT MANAGER (CURRENT) DRUG THERAPY 09/23/2019 HUY STONE MD Ot Z90. 11 ACQUIRED ABSENCE OF RIGHT BREAST AND NIP 09/23/2019 HUY STONE MD Ot Z90. 79 ACQUIRED ABSENCE OF OTHER GENITAL ORGAN( 09/23/2019 TASHA SMIHT MD Ot A41. 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 9 ANEMIA, UNSPECIFIED 09/23/2019 TASHA SMITH MD Ot F32. 9 MAJOR DEPRESSIVE DISORDER, SINGLE EPISOD 09/23/2019 TASHA SMITH MD Ot F90. 9 ATTENTION-DEFICIT HYPERACTIVITY DISORDER 09/23/2019 TASHA SMITH MD Ot G47. 9 SLEEP DISORDER, UNSPECIFIED 09/23/2019 TASHA SMITH MD Ot G62. 9 POLYNEUROPATHY, UNSPECIFIED 09/23/2019 TASHA SMITH MD Ot I10 ESSENTIAL (PRIMARY) HYPERTENSION 09/23/2019 TASHA SMITH MD Ot J45.909 UNSPECIFIED ASTHMA, UNCOMPLICATED 09/23/2019 TASHA SMITH MD Ot K21. 9 GASTRO-ESOPHAGEAL REFLUX DISEASE WITHOUT 09/23/2019 TASHA SMITH MD Ot N39. 0 URINARY TRACT INFECTION, SITE NOT SPECIF 09/23/2019 TASHA SMITH MD Ot R18. 0 MALIGNANT ASCITES 09/23/2019 TASHA SMITH MD Ot Z79.899 OTHER FPC (CURRENT) DRUG THERAPY 09/23/2019 TASHA SMITH MD Ot Z98.890 OTHER SPECIFIED POSTPROCEDURAL STATES 09/23/2019 TASHA SMITH MD Ot A41. 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 9 ANEMIA, UNSPECIFIED 09/23/2019 TASHA SMITH MD Ot F32. 9 MAJOR DEPRESSIVE DISORDER, SINGLE EPISOD 09/23/2019 TASHA SMITH MD Ot F90. 9 ATTENTION-DEFICIT HYPERACTIVITY DISORDER 09/23/2019 TASHA SMITH MD Ot G47. 9 SLEEP DISORDER, UNSPECIFIED 09/23/2019 TASHA SMITH MD Ot G62. 9 POLYNEUROPATHY, UNSPECIFIED 09/23/2019 TASHA SMITH MD Ot I10 ESSENTIAL (PRIMARY) HYPERTENSION 09/23/2019 TASHA SMITH MD Ot J45.909 UNSPECIFIED ASTHMA, UNCOMPLICATED 09/23/2019 TASHA SMITH MD Ot K21. 9 GASTRO-ESOPHAGEAL REFLUX DISEASE WITHOUT 09/23/2019 TASHA SMITH MD, Ot N39. 0 URINARY TRACT INFECTION, SITE NOT SPECIF 09/23/2019 TASHA SMITH MD, Ot R18. 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 51 SECONDARY MALIGNANT NEOPLASM OF BONE 09/24/2019 HUY STONE MD, Ot D63. 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 8 OTHER ASCITES 09/24/2019 HUY STONE MD, Ot Z79.899 OTHER BUSINESS IMPROVEMENT MANAGER (CURRENT) DRUG THERAPY 09/24/2019 HUY STONE MD, Ot Z90. 11 ACQUIRED ABSENCE OF RIGHT BREAST AND NIP 09/24/2019 HUY STONE MD Ot Z90. 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 51 SECONDARY MALIGNANT NEOPLASM OF BONE 09/24/2019 HUY STONE MD Ot D63. 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 8 OTHER ASCITES 09/24/2019 HUY STONE MD Ot Z79.899 OTHER BUSINESS IMPROVEMENT MANAGER (CURRENT) DRUG THERAPY 09/24/2019 HUY STONE MD Ot Z90. 11 ACQUIRED ABSENCE OF RIGHT BREAST AND NIP 09/24/2019 HUY STONE MD Ot Z90. 79 ACQUIRED ABSENCE OF OTHER GENITAL ORGAN( 09/24/2019 TASHA SMITH MD Ot A41. 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 9 ANEMIA, UNSPECIFIED 09/24/2019 TASHA SMITH MD Ot F32. 9 MAJOR DEPRESSIVE DISORDER, SINGLE EPISOD 09/24/2019 TASHA SMITH MD Ot F90. 9 ATTENTION-DEFICIT HYPERACTIVITY DISORDER 09/24/2019 TASHA SMITH MD Ot G47. 9 SLEEP DISORDER, UNSPECIFIED 09/24/2019 TASHA SMITH MD Ot G62. 9 POLYNEUROPATHY, UNSPECIFIED 09/24/2019 TASHA SMITH MD M Ot I10 ESSENTIAL (PRIMARY) HYPERTENSION 09/24/2019 TASHA SMITH MD Ot J45.909 UNSPECIFIED ASTHMA, UNCOMPLICATED 09/24/2019 TASHA SMITH MD Ot K21. 9 GASTRO-ESOPHAGEAL REFLUX DISEASE WITHOUT 09/24/2019 TASHA SMITH MD Ot N39. 0 URINARY TRACT INFECTION, SITE NOT SPECIF 09/24/2019 TASHA SMITH MD Ot R18. 0 MALIGNANT ASCITES 09/24/2019 TASHA SMITH MD Ot Z79.899 OTHER FPC (CURRENT) DRUG THERAPY 09/24/2019 TASHA SMITH MD Ot Z98.890 OTHER SPECIFIED POSTPROCEDURAL STATES 09/24/2019 TASHA SMITH MD Ot A41. 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 9 ANEMIA, UNSPECIFIED 09/24/2019 TASHA SMITH MD Ot F32. 9 MAJOR DEPRESSIVE DISORDER, SINGLE EPISOD 09/24/2019 TASHA SMITH MD Ot F90. 9 ATTENTION-DEFICIT HYPERACTIVITY DISORDER 09/24/2019 TASHA SMITH MD Ot G47. 9 SLEEP DISORDER, UNSPECIFIED 09/24/2019 TASHA SMITH MD M Ot G62. 9 POLYNEUROPATHY, UNSPECIFIED 09/24/2019 TASHA SMITH MD M Ot I10 ESSENTIAL (PRIMARY) HYPERTENSION 09/24/2019 TASHA SMITH MD Ot J45.909 UNSPECIFIED ASTHMA, UNCOMPLICATED 09/24/2019 TASHA SMITH MD Ot K21. 9 GASTRO-ESOPHAGEAL REFLUX DISEASE WITHOUT 09/24/2019 TASHA SMITH MD, Ot N39. 0 URINARY TRACT INFECTION, SITE NOT SPECIF 09/24/2019 TASHA SMITH MD, Ot R18. 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 11 ENCOUNTER FOR ANTINEOPLASTIC CHEMOTHERAP 10/12/2019 HUY STONE MD Ot Z79.899 OTHER [facility]PC (CURRENT) DRUG THERAPY 10/12/2019 HUY STONE MD Ot Z90. 11 ACQUIRED ABSENCE OF RIGHT BREAST AND NIP 10/12/2019 HUY STONE MD Ot Z90. 79 ACQUIRED ABSENCE OF OTHER GENITAL ORGAN( 10/12/2019 HUY STONE MD Ot C50.111 MALIGNANT NEOPLASM OF CENTRAL PORTION OF 10/12/2019 HUY STONE MD Ot C78. 6 SECONDARY MALIGNANT NEOPLASM OF RETROPER 10/12/2019 HUY STONE MD Ot C79. 51 SECONDARY MALIGNANT NEOPLASM OF BONE 10/12/2019 HUY STONE MD Ot Z51. 11 ENCOUNTER FOR ANTINEOPLASTIC CHEMOTHERAP 10/12/2019 HUY STONE MD Ot Z79.899 OTHER [facility] (CURRENT) DRUG THERAPY 10/12/2019 HUY STONE MD Ot Z90. 11 ACQUIRED ABSENCE OF RIGHT BREAST AND NIP 10/12/2019 HUY STONE MD Ot Z90. 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 8 OTHER ASCITES 10/14/2019 HUY STONE MD, Ot Z79.899 OTHER FPC (CURRENT) DRUG THERAPY 10/14/2019 HUY STONE MD, Ot Z90. 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 79 ACQUIRED ABSENCE OF OTHER GENITAL ORGAN( Procedures Code Description Performed By Per formed On [id number] DR GRANADOS OF PERITONEAL CAVITY, PERCUTANE 04/19/2019 [id number] IN SERTION OF INFUSION DEV INTO SUP VENA 04/20/2019 [id number] IN SERT OF TUNNEL VAD INTO CHEST SUBCU/FA 04/20/[id number] GRANADOS OF PERITONEAL CAVITY WITH DRAIN 06/12/2019 [id number] IN SERTION OF TUNNEL VAD INTO ABD [...] OF GROWTH Isolated NRG Bacterial blood culture [id number] NRG Bacterial blood culture - 04/28/19 20:58 [...] culture - 04/29/19 02:20 Bacterial urine culture [id number] NRG COLONY COUNT 50,000 CFU/ML NRG FTX;REPORTABLE PREDOMINANT NRG FREE TEXT ENTRY 2 SUSCEPTIBILITY REPORTED 05-02-19 1201 NRG Dirithromycin susceptibility test by dis [...] pa ashwin - 04/29/19 08:57 WRISTBAND NUMBER [id number] NRG ABO+Rh group OP NRG Blood group [...] OF GROWTH Isolated NRG Bacterial blood culture [id number] NRG FREE TEXT ENTRY 2 PRELIM RAPID [...] culture - 05/22/19 17:31 Bacterial urine culture [id number] NRG COLONY COUNT >100,000/ML NRG FTX;REPORTABLE REPORTED BY [facility] NRG FREE TEXT ENTRY 2 PRELIM RAPID ID BY [facility] 05-23-19, 1 319 NRG FREE TEXT ENTRY 3 PRELIM RAPID ID BY [facility] 05-23-19,13 17 NRG FREE TEXT ENTRY 4 [...] pa ashwin - 06/13/19 11:15 WRISTBAND NUMBER [id number] NRG ABO+Rh group OP NRG Blood group [...] oscopy YES NR Comprehensive metabolic panel - 06/14/19 08:50 Serum [...] Staphylococcus aureus (MRSA) scr eening culture NEG [facility] [id number] - 06/24/19 14:55 [id number] SPECIMEN AVAILABLE [facility] INHOUSE COVID- - 08/02/19 09:37 SARS-CoV-2 RNA NEGATIVE NL: [...] poor plasma bycoagulation assay 44 s 24-35 Bacterial blood culture - 09/21/19 19:00 Bacterial blood culture NG NRG Gram stain microscopy - 09/21/19 19:10 Gram stain microscopy No bacteria seen NRG Bacterial body fluid culture - 09/21/19 19:10 QUANTITY OF GROWTH . NRG Bacterial body fluid culture SEE COMMEN NRG SUSCEPTIBILITY (A MEMBER OF THE AEROBIC ACTINOMYCE GRACIA) NRG MRSA SCREEN SUSCEPTIBILITY REPORTED 10/06/19 16:15 NRG Dirithromycin susceptibility test by dis k diffusion - 09/21/19 19:10 Trimethoprim/sulfamethoxazole susceptibi lity test by minimum inhibitoryconcentration S NRG Tobramycin susceptibility test by minimum inhibitory c oncentration <= NRG Ceftriaxone susceptibility test by minimum inhibitory concentration I NRG Ciprofloxacin susceptibility test by minimum inhibitor y concentration 4 NRG Amikacin susceptibility test by minimum inhibitory con centration S NRG Linezolid susceptibility test by minimum inhibitory co ncentration 2 NRG Moxifloxacin susceptibility test by minimum inhibitory concentration 1 NRG Amoxicillin and clavulanate potassium susc TAYLOR S NRG Imipenem susceptibility test by minimum inhibitory con centration S NRG Minocycline susc TAYLOR S NRG Clarithromycin susc TAYLOR S NRG Doxycycline [Susceptibility] by Minimum inhibitory concentration (TAYLOR) 2 NRG Bacterial blood culture - 09/21/19 19:40 QUANTITY OF GROWTH . NRG Bacterial blood culture SEE COMMEN NRG SUSCEPTIBILITY NO SUSCEPTIBILITY PERFORMED NRG MRSA SCREEN SEE COMMENT NRG Complete urinalysis with reflex to cultu [...] CULTURE PENDING NRG Bacterial urine culture - 09/21/19 20:12 Bacterial urine culture [id number] NRG COLONY COUNT 30,000 CFU/ML NRG SUSCEPTIBILITY NO SUSCEPTIBILITY PERFORMED NRG Blood lactic acid measurement (moles/vol ume) - 09/21/19 22:56 Blood lactic acid measurement (moles/volume) 0.51 mmol/L 0.50-2.00 Complete blood count (CBC) with automate d white blood cell (WBC) differential - 09/22/19 03:06 Blood leukocytes automated count (number/volume) 4.1 10*3/uL 4.3-11.0 Blood erythrocytes automated count (number/volume) 2.43 10*6/uL 4.35-5.85 Venous blood hemoglobin measurement (mass/volume) 7.0 g/dL 11.5-16.0 Blood hematocrit (volume fraction) 23 % 35-52 Automated erythrocyte mean corpuscular volume 96 [ foz_us] 80-99 Automated erythrocyte mean corpuscular h emoglobin (mass per erythrocyte) 29 pg 25-34 Automated erythrocyte mean corpuscular h emoglobin concentration measurement (mass/volume) 30 g/dL 32-36 Automated erythrocyte distribution width ratio 17. 0 % 10.0- 14.5 Automated blood platelet count (count/volume) 265 10*3/uL 130-400 Automated blood platelet mean volume measurement 9.5 [foz_us] 7.4-10.4 Automated blood neutrophils/100 leukocytes 56 % 42-75 Automated blood lymphocytes/100 leukocytes 25 % 12-44 Blood monocytes/100 leukocytes 17 % 0-12 Automated blood eosinophils/100 leukocytes 2 % 0-10 Automated blood basophils/100 leukocytes 0 % 0-10 Blood neutrophils automated count (number/volume) 2.3 10*3 1.8-7.8 Blood lymphocytes automated count (number/volume) 1.0 10*3 1.0-4.0 Blood monocytes automated count (number/volume) 0. 7 10*3 0.0-1.0 Automated eosinophil count 0.1 10*3/uL 0 .0-0.3 Automated blood basophil count (count/volume) 0.0 10*3/uL 0.0-0.1 Comprehensive metabolic panel - 09/22/19 03:06 Serum or plasma sodium measurement (moles/volume) 140 mmol/L 135-145 Serum or plasma potassium measurement (moles/volume) 3.8 mmol/L 3.6-5.0 Serum or plasma chloride measurement (moles/volume) 108 mmol/L 98-107 Carbon dioxide 20 mmol/L 21-32 Serum or plasma anion gap determination (moles/volume) 12 mmol/L 5-14 Serum or plasma urea nitrogen measurement (mass/volume ) 8 mg/dL 7-18 Serum or plasma creatinine measurement (mass/volume) 0.71 mg/dL 0.60-1.30 Serum or plasma urea nitrogen/creatinine mass ratio 11 NRG Serum or plasma creatinine measurement w ith calculation of estimated glomerular filtration rate > NRG Serum or plasma glucose measurement (mass/volume) 99 mg/dL 70-105 Serum or plasma calcium measurement (mass/volume) 8.5 mg/dL 8.5-10.1 Serum or plasma total bilirubin measurement (mass/volu me) 0.1 mg/dL 0.1-1.0 Serum or plasma alkaline phosphatase miguel angel surement (enzymatic activity/volume) 67 U/L 40-136 Serum or plasma aspartate aminotransfera se measurement (enzymatic activity/volume) 24 U/L 5-34 Serum or plasma alanine aminotransferase measurement (enzymatic activity/volume) 12 U/L 0-55 Serum or plasma protein measurement (mass/volume) 5.3 g/dL 6.4-8.2 Serum or plasma albumin measurement (mass/volume) 2.7 g/dL 3.2-4.5 CALCIUM CORRECTED 9.5 mg/dL 8.5-10.1 PROCALCITONIN (PCT) - 09/22/19 03:06 PROCALCITONIN (PCT) 0.12 ng/mL <0.10 Whole blood hemoglobin and hematocrit [facility] 09/22/19 06:07 Venous blood hemoglobin measurement (mass/volume) 6.9 g/dL 11.5-16.0 Blood hematocrit (volume fraction) 23 % 35-52 RED CELLS LEUKO REDUCED AS1 - 09/22/19 0 6:47 RED CELLS LEUKO REDUCED AS1 T RANSFUSED 09/22/19 1106 NRG Blood type T Indirect antibody screen [facility] 09/22/19 06:47 WRISTBAND NUMBER [id number] NRG ABO+Rh group OP NRG Blood group antibody screen NEGATIVE NR G Whole blood hemoglobin and hematocrit [facility] 09/22/19 18:30 Venous blood hemoglobin measurement (mass/volume) 8.1 g/dL 11.5-16.0 Blood hematocrit (volume fraction) 26 % 35-52 Whole blood hemoglobin and hematocrit [facility] 09/23/19 05:55 Venous blood hemoglobin measurement (mass/volume) 8.2 g/dL 11.5-16.0 Blood hematocrit (volume fraction) 26 % 35-52 PROCALCITONIN (PCT) - 09/23/19 05:55 PROCALCITONIN (PCT) 0.12 ng/mL <0.10 Whole blood hemoglobin and hematocrit [facility] 09/23/19 19:08 Venous blood hemoglobin measurement (mass/volume) 7.8 g/dL 11.5-16.0 Blood hematocrit (volume fraction) 25 % 35-52 Complete blood count (CBC) with automate d white blood cell (WBC) differential - 09/24/19 09:30 Blood leukocytes automated count (number/volume) 4.9 10*3/uL 4.3-11.0 Blood erythrocytes automated count (number/volume) 2.90 10*6/uL 4.35-5.85 Venous blood hemoglobin measurement (mass/volume) 8.3 g/dL 11.5-16.0 Blood hematocrit (volume fraction) 27 % 35-52 Automated erythrocyte mean corpuscular volume 91 [ foz_us] 80-99 Automated erythrocyte mean corpuscular h emoglobin (mass per erythrocyte) 29 pg 25-34 Automated erythrocyte mean corpuscular h emoglobin concentration measurement (mass/volume) 31 g/dL 32-36 Automated erythrocyte distribution width ratio 18. 2 % 10.0- 14.5 Automated blood platelet count (count/volume) 285 10*3/uL 130-400 Automated blood platelet mean volume measurement 9.3 [foz_us] 7.4-10.4 Automated blood neutrophils/100 leukocytes 65 % 42-75 Automated blood lymphocytes/100 leukocytes 18 % 12-44 Blood monocytes/100 leukocytes 15 % 0-12 Automated blood eosinophils/100 leukocytes 1 % 0-10 Automated blood basophils/100 leukocytes 0 % 0-10 Blood neutrophils automated count (number/volume) 3.2 10*3 1.8-7.8 Blood lymphocytes automated count (number/volume) 0.9 10*3 1.0-4.0 Blood monocytes automated count (number/volume) 0. 7 10*3 0.0-1.0 Automated eosinophil count 0.1 10*3/uL 0 .0-0.3 Automated blood basophil count (count/volume) 0.0 10*3/uL 0.0-0.1 Whole blood basic metabolic panel - 09/14 09:30 Serum or plasma sodium measurement (moles/volume) 135 mmol/L 135-145 Serum or plasma potassium measurement (moles/volume) 4.0 mmol/L 3.6-5.0 Serum or plasma chloride measurement (moles/volume) 101 mmol/L 98-107 Carbon dioxide 24 mmol/L 21-32 Serum or plasma anion gap determination (moles/volume) 10 mmol/L 5-14 Serum or plasma urea nitrogen measurement (mass/volume ) 7 mg/dL 7-18 Serum or plasma creatinine measurement (mass/volume) 0.69 mg/dL 0.60-1.30 Serum or plasma urea nitrogen/creatinine mass ratio 10 NRG Serum or plasma creatinine measurement w ith calculation of estimated glomerular filtration rate > NRG Serum or plasma glucose measurement (mass/volume) 123 mg/dL 70-105 Serum or plasma calcium measurement (mass/volume) 9.1 mg/dL 8.5-10.1 INHOUSE COVID-19 - 10/18/19 08:05 SARS-CoV-2 RNA Not Detected NL: Not De tected SPECIMEN SOURCE: Nasopharyngeal NRG UA ROUTINE C&S IF IND - 10/18/19 08:30 GLUCOSE Normal NL: NEGATIVE mg/dl COLOR Yellow NL: YELLOW CLARITY Clear NL: CLEAR SPEC GRAV 1.028 NL: 1.002 - 1.022 pH 6.0 NL: 5 - 9 PROTEIN 30 NL: NEGATIVE mg/dl KETONE Negative NL: NEGATIVE mg/dl BILIRUBIN Negative NL: NEGATIVE BLOOD Negative NL: NEGATIVE NITRITE Negative NL: NEGATIVE LEUK SCREEN 250 NL: NEGATIVE RBC/HPF 4-10 NL: NONE SEEN WBC/HPF 21-50 NL: NONE SEEN BACTERIA/HPF None Seen NL: NONE SEEN SQUAMOUS EPI/LPF Few NL: NONE SEE N MUCOUS/LPF 1+ NL: NONE SEEN CULT SET UP? YES NRG UA ROUTINE C&S IF IND N/A NRG Micro Indicated? MICRO IND NRG HYALINE CAST/LPF 3+ NL: NONE SEE N CBC W/ AUTO DIFF (RFLX MAN DIFF IF IND) - 10/18/19 08:30 CBC W/ AUTO DIFF (RFLX MAN DIFF IF IND) N/A NRG WBC 7.8 TH/CMM 4.5-10.8 RBC 2.97 ML/CMM 4.20-5.40 HGB 8.2 G/DL 12.0-16.0 HCT 27.1 % 37.0-47.0 MCV 91 FL 81-99 MCH 27.6 PG 27.0-33.0 MCHC 30.3 G/DL 31.0-36.0 RDW SD 60 FL 36-50 RDW CV 18.1 % 0.0-14.8 MPV 8.7 FL 9.3-12.5 PLT 436 TH/CMM 130-440 NRBC# 0.04 TH/CMM 0.00-0.00 NRBC% 0.5 /100WBC 0.0-2.0 %NEUT 70.7 % NRG %LYMP 18.1 % NRG %MONO 8.9 % NRG %EOS 1.0 % NRG %BASO 0.3 % NRG #NEUT 5.48 TH/CMM 2.10-8.20 #LYMP 1.40 TH/CMM 0.90-5.20 #MONO 0.69 TH/CMM 0.16-1.00 #EOS 0.08 TH/CMM 0.00-0.80 #BASO 0.02 TH/CMM 0.00-0.20 MANUAL DIFF NOT IND NRG BASIC METABOLIC PANEL - 10/18/19 08:30 GLUCOSE 93 MG/DL 70-100 SODIUM 131 MEQ/L 135-148 POTASSIUM 4.6 MEQ/L 3.5-5.3 CHLORIDE 95 MEQ/L 96-110 CO2 23 MEQ/L 22-29 BUN 14 MG/DL 8-22 CREATININE 0.83 MG/DL 0.57-1.11 CALCIUM 8.7 MG/DL 8.2-10.6 AGE 59 yrs NRG GFR NonAA 70 NRG GFR AA 85 NRG eGFR 70 mL/min/1.7 NRG eGFR AA* >60 mL/min/1.7 NRG BASIC METABOLIC PANEL N/A NRG Complete blood count (CBC) with automate d white blood cell (WBC) differential - 10/21/19 13:07 Blood leukocytes automated count (number/volume) 8.4 10*3/uL 4.3-11.0 Blood erythrocytes automated count (number/volume) 3.03 10*6/uL 4.35-5.85 Venous blood hemoglobin measurement (mass/volume) 8.3 g/dL 11.5-16.0 Blood hematocrit (volume fraction) 27 % 35-52 Automated erythrocyte mean corpuscular volume 90 [ foz_us] 80-99 Automated erythrocyte mean corpuscular h emoglobin (mass per erythrocyte) 27 pg 25-34 Automated erythrocyte mean corpuscular h emoglobin concentration measurement (mass/volume) 31 g/dL 32-36 Automated erythrocyte distribution width ratio 18. 7 % 10.0- 14.5 Automated blood platelet count (count/volume) 455 10*3/uL 130-400 Automated blood platelet mean volume measurement 9.1 [foz_us] 7.4-10.4 Automated blood neutrophils/100 leukocytes 78 % 42-75 Automated blood lymphocytes/100 leukocytes 13 % 12-44 Blood monocytes/100 leukocytes 8 % 0-12 Automated blood eosinophils/100 leukocytes 0 % 0-10 Automated blood basophils/100 leukocytes 0 % 0-10 Blood neutrophils automated count (number/volume) 6.6 10*3 1.8-7.8 Blood lymphocytes automated count (number/volume) 1.1 10*3 1.0-4.0 Blood monocytes automated count (number/volume) 0. 7 10*3 0.0-1.0 Automated eosinophil count 0.0 10*3/uL 0 .0-0.3 Automated blood basophil count (count/volume) 0.0 10*3/uL 0.0-0.1 Comprehensive metabolic panel - 10/21/19 13:07 Serum or plasma sodium measurement (moles/volume) 132 mmol/L 135-145 Serum or plasma potassium measurement (moles/volume) 3.8 mmol/L 3.6-5.0 Serum or plasma chloride measurement (moles/volume) 99 mmol/L 98-107 Carbon dioxide 20 mmol/L 21-32 Serum or plasma anion gap determination (moles/volume) 13 mmol/L 5-14 Serum or plasma urea nitrogen measurement (mass/volume ) 11 mg/dL 7-18 Serum or plasma creatinine measurement (mass/volume) 0.72 mg/dL 0.60-1.30 Serum or plasma urea nitrogen/creatinine mass ratio 15 NRG Serum or plasma creatinine measurement w ith calculation of estimated glomerular filtration rate > NRG Serum or plasma glucose measurement (mass/volume) 79 mg/dL 70-105 Serum or plasma calcium measurement (mass/volume) 8.6 mg/dL 8.5-10.1 Serum or plasma total bilirubin measurement (mass/volu me) 0.2 mg/dL 0.1-1.0 Serum or plasma alkaline phosphatase miguel angel surement (enzymatic activity/volume) 109 U/L 40-136 Serum or plasma aspartate aminotransfera se measurement (enzymatic activity/volume) 29 U/L 5-34 Serum or plasma alanine aminotransferase measurement (enzymatic activity/volume) 9 U/L 0-55 Serum or plasma protein measurement (mass/volume) 5.3 g/dL 6.4-8.2 Serum or plasma albumin measurement (mass/volume) 2.4 g/dL 3.2-4.5 CALCIUM CORRECTED 9.9 mg/dL 8.5-10.1 Lipase - 10/21/19 13:07 Lipase 8 U/L 8-78 Complete urinalysis with reflex to cultu re - 10/21/19 15:00 Urine color determination YELLOW NRG Urine clarity determination CLEAR NR G Urine pH measurement by test strip 6.0 5-9 Specific gravity of urine by test strip >= 1.016-1.022 Urine protein assay by test strip, semi-quantitative 2+ NEGATIVE Urine glucose detection by automated test [...] sediment by light microsco py NEGATIVE NRG Squamous epithelial cells detection in u rine sediment by light microscopy RARE NRG Crystals detection in urine sediment by light microsco py PRESENT NRG Casts detection in urine sediment by light microscopy NONE NRG Mucus detection in urine sediment by light microscopy NEGATIVE NRG Complete urinalysis with reflex to culture YES NRG Calcium oxalate crystals detection in ur ine sediment by light microscopy MODERATE NRG Encounters ACCT No. Visit Date/Time Discharge Status Pt. Type Provider Facility Loc./Unit Complaint [id number] 10/18/2019 08:12:00 Document Registration [id number] 10/18/2019 08:06:10 Document Registration [id number] 08/02/2019 10:00:00 Document Registration [id number] 08/10/2019 12:22:11 08/10/2019 23:59: 59 [facility] Outpatient Home Frank [id number] 07/27/2019 13:52:27 07/27/2019 23:59: 59 [facility] Outpatient EITAN KRUGER [id number] 05/25/2019 10:45:15 05/25/2019 23:59: 59 [facility] Outpatient Home Frank [id number] 04/15/2019 15:27:43 04/15/2019 23:59: 59 [facility] Outpatient EITAN KRUGER [id number] 04/15/2019 11:36:00 04/15/2019 23:59: 59 [facility] Outpatient Monika Home [id number] 10/20/2019 09:08:02 [facility] Outpatient Home Frank [id number] 10/14/2019 09:36:33 Document Registration [id number] 09/03/2019 16:04:46 Document Registration [id number] 07/31/2019 09:52:53 Document Registration [id number] 07/30/2019 12:20:13 Document Registration [id number] 05/25/2019 10:37:09 Document Registration [id number] 04/15/2019 13:01:31 Document Registration [id number] 04/15/2019 13:01:30 Document Registration [id number] 04/15/2019 13:01:29 Document Registration [id number] 10/12/2019 09:17:00 23:59:59 CLS Outpatient BERTHA FRAUSTO, HUY [facility] ONC [id number] 09/21/2019 21:00:00 14:50:00 DIS Inpatient LUIS FRAUSTO, TASHA Dukes [facility] 4TH SEPSIS, UTI [id number] 08/31/2019 09:23:00 00:01:00 DIS Outpatient HUY STONE MD [facility] ONC [id number] 06/17/2019 09:08:00 00:01:00 DIS Outpatient HUY STONE MD [facility] ONC [id number] 06/11/2019 20:00:00 15:15:00 DIS Inpatient LUCITA FRAUSTO, ZAIN Dukes [facility] 4TH SBO,METASTATIC CA [id number] 05/24/2019 12:58:00 17:10:00 DIS Outpatient HUY STONE MD [facility] RAD ASCITES,CA OF RT BREAST ,SECONDARY CA OF BONE [id number] 05/22/2019 15:00:00 18:18:00 DIS Emergency CADEN HARDIN MD [facility] ER FEVER 102 / NEHA MO PT [id number] 05/12/2019 13:00:00 23:59:59 CLS Outpatient NICKIE PERDOMO DO [facility] RAD CANCER OF RT BREAST,SEC ONDARY CANCER OF BONE [id number] 05/12/2019 12:10:00 23:59:59 CLS Outpatient HUY STONE MD [facility] RAD CA OF RT BREAST,SECONDA RY CA OF BONE [id number] 05/11/2019 07:45:00 23:59:59 CLS Outpatient HUY STONE MD [facility] RAD CANCER OF RT BREAST,DIPranav ZINESS [id number] 05/05/2019 17:14:00 12:30:00 DIS Inpatient HUY STONE MD [facility] 4TH N/V [id number] 04/28/2019 21:59:00 17:52:00 DIS Inpatient HUY STONE MD [facility] 4TH NAUSEA,VOMITING,BREAST CA [id number] 04/21/2019 10:57:00 22:00:00 DIS Inpatient HUY STONE MD [facility] 4TH SWB, NAUSEA, VOMITING, BREAST CANCER [id number] 04/18/2019 12:04:00 10:50:00 DIS Inpatient WILFREDO PAREDES [facility] 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, METAST ATIC BREAST CA [id number] 04/14/2019 12:38:00 23:59:59 CLS Outpatient NICKIE PERDOMO DO [facility] RAD ABD OSCITES [id number] 04/14/2019 07:01:00 23:59:59 CLS Outpatient TICO GALAN MD [facility] RAD RUQ PAIN [id number] 04/13/2019 19:02:00 22:48:00 DIS Emergency TICO GALAN MD [facility] ER ABD PAIN [id number] 04/02/2019 12:34:00 23:59:59 CLS Outpatient HUY STONE MD [facility] RAD CANCER OF RIGHT BREAST, SECONDARY CANCER OF BONE [id number] 2019 10:26:00 23:59:59 CLS Outpatient HUY STONE MD [facility] RAD CANCER OF RT BREAST [id number] 03/23/2019 14:52:00 23:59:59 CLS Outpatient HUY STONE MD [facility] RAD CANCER OF RT BREAST,DIANA QUIROGA [id number] 03/01/2019 14:00:00 00:01:00 DIS Outpatient HUY STONE MD [facility] ONC [id number] 12/02/2018 15:28:00 00:01:00 DIS Outpatient HUY STONE MD [facility] ONC [id number] 09/02/2018 13:53:00 08:35:00 DIS Outpatient ERIC BRADY MD, V ia [facility] ONC [id number] 09/01/2018 08:17:00 00:01:00 DIS Outpatient HUY STONE MD [facility] ONC [id number] 05/13/2018 13:39:00 019 00:01:00 DIS Outpatient HUY STONE MD [facility] ONC [id number] 03/02/2018 10:55:00 018 10:56:00 DIS Outpatient HUY STONE MD [facility] ONC [id number] 10/21/2019 13:23:00 Document Registration [id number] 10/20/2019 09:31:[address] Outpatient HUY STONE MD [facility] RAD CANCER OF RIGHT BREAST
== END 2019-10-21 16:52 | disposition home or self-care (01) ==
LOC: EDUNIT# 11:38 → ER 11:40
DX: N39.0 Urinary tract infection, site not specified (principal); J45.909 Unspecified asthma, uncomplicated; I10 Essential (primary) hypertension; G62.9 Polyneuropathy, unspecified; E03.9 Hypothyroidism, unspecified; K21.9 Gastro-esophageal reflux disease without esophagitis; F90.9 Attention-deficit hyperactivity disorder, unspecified type; F32.9 Major depressive disorder, single episode, unspecified; Z85.3 Personal history of malignant neoplasm of breast; Z96.0 Presence of urogenital implants; Z88.5 Allergy status to narcotic agent; Z85.830 Personal history of malignant neoplasm of bone; Z88.6 Allergy status to analgesic agent; Z79.890 Hormone replacement therapy; Z88.8 Allergy status to other drugs, medicaments and biological substances; Z79.51 Long term (current) use of inhaled steroids; Z82.49 Family history of ischemic heart disease and other diseases of the circulatory system; Z80.8 Family history of malignant neoplasm of other organs or systems
CPT/HCPCS: 36415; 80053; 81000; 83690; 85025; 87088; 96361; 96374; 96375

== ENCOUNTER 2019-10-22 09:45 | Outpatient (RCR) | payer MEDICARE, OTHER ==
[2019-10-12 09:29] LABS: BASOPHILS % (AUTO) 0 % (0-10); EOSINOPHILS # (AUTO) 0.2 10^3/uL (0.0-0.3); EOSINOPHILS % (AUTO) 3 % (0-10); HEMATOCRIT 27 % (35-52); HEMOGLOBIN 8.3 G/DL (11.5-16.0); LYMPHOCYTES # (AUTO) 1.5 X 10^3 (1.0-4.0); LYMPHOCYTES % (AUTO) 22 % (12-44); MEAN CORPUSCULAR HEMOGLOBIN 28 PG (25-34); MEAN CORPUSCULAR HGB CONC 30 G/DL (32-36); MEAN CORPUSCULAR VOLUME 91 FL (80-99); MEAN PLATELET VOLUME 8.9 FL (7.4-10.4); MONOCYTES # (AUTO) 0.7 X 10^3 (0.0-1.0); MONOCYTES % (AUTO) 9 % (0-12); NEUTROPHILS # (AUTO) 4.6 X 10^3 (1.8-7.8); NEUTROPHILS % (AUTO) 66 % (42-75); PLATELET COUNT 462 10^3/uL (130-400)
[2019-10-12 09:53] LABS: ALANINE AMINOTRANSFERASE 10 U/L (0-55); ALBUMIN 2.8 GM/DL (3.2-4.5); ALKALINE PHOSPHATASE 89 U/L (40-136); BILIRUBIN,TOTAL 0.1 MG/DL (0.1-1.0); BUN/CREATININE RATIO 15; CALCIUM 9.2 MG/DL (8.5-10.1); CARBON DIOXIDE 22 MMOL/L (21-32); CHLORIDE 99 MMOL/L (98-107); CREATININE SERUM 0.86 MG/DL (0.60-1.30); GFR ESTIMATED > 60; GLUCOSE 123 MG/DL (70-105); POTASSIUM 4.1 MMOL/L (3.6-5.0); SODIUM 133 MMOL/L (135-145)
[~2019-10-22 09:45] MED LIST changes: +AMLO-250 PO; -AMLO5TAB9 PO; +CEFD300C3 PO; +FAMOTIDINE 20MG/2ML IV (CANCER CTR) IV SCH; +FOSAPREPITANT (CANCER CENTER) 150 MG in NS (IVPB) CANCER CENTER ONLY 150 ML IV SCH; +NS IV 1000 ML (CANCER CTR) IV SCH; +ZOLEDRONIC ACID (CANCER CTR) 4 MG in NS (IVPB) CANCER CENTER 100 ML IV SCH; +diphenhydrAMINE 25 MG TAB (BENADRYL) CANCER CENTER PO SCH
[2019-10-22] MEDS ORDERED: NS IV 500 ML (CANCER CENTER) 500 ML ONE (11:07)
[2019-10-22] MEDS ORDERED: PROMETHAZINE INJ 25 MG/ML (PHENERGAN) AMP IV ONE (11:15)
[2019-10-22] MEDS ORDERED: PROMETHAZINE IV ONE (11:18)
[2019-10-22] MEDS ORDERED: NS IV ONE (11:18)
[2019-10-27] MEDS ORDERED: MORP-68 PO (11:20)
[2019-10-27] MEDS ORDERED: CEFD300C3 PO (11:20)
[2019-10-27] MEDS ORDERED: ANAS1TAB50 PO (11:20)
[2019-11-02] MEDS ORDERED: ALPR0.25 PO (10:31)
[2019-11-02] MEDS ORDERED: CEFD300C3 PO (10:31)
[2019-11-08] MEDS ORDERED: MORP20SO PO (12:38)
[2019-11-08] MEDS ORDERED: LORA2ORA PO (12:38)
== END 2020-01-10 | disposition home or self-care (01) ==
LOC: ONC 09:45
PROVIDERS: ATTEND Internal Medicine Hematology & Oncology
DX: C50.311 Malignant neoplasm of lower-inner quadrant of right female breast (principal); C79.51 Secondary malignant neoplasm of bone; C78.6 Secondary malignant neoplasm of retroperitoneum and peritoneum; D63.0 Anemia in neoplastic disease; R18.8 Other ascites; N13.30 Unspecified hydronephrosis; E87.1 Hypo-osmolality and hyponatremia; N39.0 Urinary tract infection, site not specified; I10 Essential (primary) hypertension; E03.9 Hypothyroidism, unspecified; Z90.79 Acquired absence of other genital organ(s); Z79.899 Other long term (current) drug therapy; Z90.11 Acquired absence of right breast and nipple; Z98.82 Breast implant status; Z92.3 Personal history of irradiation; Z96.0 Presence of urogenital implants; Z90.710 Acquired absence of both cervix and uterus
CPT/HCPCS: 80053; 85025; 86300; G0463; 36591; 96361; 96374

== ENCOUNTER 2019-10-26 23:23 | Inpatient (IN) | payer MEDICARE, OTHER ==
[~2019-10-26] VITALS: Ht 165 cm; Wt 70.0 kg
[~2019-10-26 23:23] MED LIST changes: -AMLO-250 PO; +AMLO5TAB9 PO; -FAMOTIDINE 20MG/2ML IV (CANCER CTR) IV SCH; -FOSAPREPITANT (CANCER CENTER) 150 MG in NS (IVPB) CANCER CENTER ONLY 150 ML IV SCH; -NS IV 1000 ML (CANCER CTR) IV SCH; -ZOLEDRONIC ACID (CANCER CTR) 4 MG in NS (IVPB) CANCER CENTER 100 ML IV SCH; -diphenhydrAMINE 25 MG TAB (BENADRYL) CANCER CENTER PO SCH
--- OUTSIDE RECORDS SUMMARY | 2019-10-26 23:35 | XMS REPORT | Continuity of Care Document ---
Demographics Preferred Language Unknown Marital Status Unknown Uatsdin Affiliation Unknown Race Unknown Ethnic Group Unknown Author Organization Unknown Address Unknown Phone Unavailable Allergies Active Description Code Type Severity Reaction Onset Reported/Identified Relationship to Patient Clinical Status Yes ASPIRIN 63653094 DRUG N/A N/A Yes COMPAZINE [id number] DRUG N/A N/A Yes PROCHLORPERAZINE [id number] DRUG N/A N/A Yes aspirin [id number] Drug Allergy Unknown N/A 01/13/2018 Yes morphine [id number] Drug Allergy Moderate Itching 04/18/2019 Yes prochlorperazine [id number] Drug Allergy Unknown N/A 06/11/2019 Medications There is no data. 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 02/13/1055 HUY STONE MD Ot Z79.899 OTHER JAIL (CURRENT) DRUG THERAPY 02/13/1055 HUY STONE MD [...] 02/11/2018 HUY STONE MD Ot Z79.899 OTHER MORGUE ATTENDANT (CURRENT) DRUG THERAPY 02/11/2018 HUY STONE MD [...] 02/17/2018 HUY STONE MD Ot Z79.899 OTHER MORGUE ATTENDANT (CURRENT) DRUG THERAPY 02/17/2018 HUY STONE MD [...] 03/02/2018 HUY STONE MD Ot Z79.899 OTHER JAIL (CURRENT) DRUG THERAPY 03/02/2018 HUY STONE MD [...] 03/02/2018 HUY STONE MD Ot Z79.899 OTHER MORGUE ATTENDANT (CURRENT) DRUG THERAPY 03/02/2018 HUY STONE MD [...] 03/03/2018 HUY STONE MD Ot Z79.899 OTHER MORGUE ATTENDANT (CURRENT) DRUG THERAPY 03/03/2018 HUY STONE MD [...] 04/13/2018 HUY STONE MD Ot Z79.899 OTHER JAIL (CURRENT) DRUG THERAPY 04/13/2018 HUY STONE MD [...] 04/14/2018 HUY STONE MD Ot Z79.899 OTHER JAIL (CURRENT) DRUG THERAPY 04/14/2018 HUY STONE MD [...] 05/31/2018 HUY STONE MD Ot Z79.899 OTHER MORGUE ATTENDANT (CURRENT) DRUG THERAPY 05/31/2018 HUY STONE MD [...] 06/01/2018 HUY STONE MD, Ot Z79.899 OTHER JAIL (CURRENT) DRUG THERAPY 06/01/2018 HUY STONE MD [...] 06/03/2018 HUY STONE MD Ot Z79.899 OTHER MORGUE ATTENDANT (CURRENT) DRUG THERAPY 06/03/2018 HUY STONE MD [...] 06/04/2018 HUY STONE MD, Ot Z79.899 OTHER JAIL (CURRENT) DRUG THERAPY 06/04/2018 HUY STONE MD, [...] 06/06/2018 HUY STONE MD Ot Z79.899 OTHER JAIL (CURRENT) DRUG THERAPY 06/06/2018 HUY STONE MD [...] 07/08/2018 HUY STONE MD Ot Z79.899 OTHER JAIL (CURRENT) DRUG THERAPY 07/08/2018 HUY STONE MD [...] SECONDARY MALIGNANT NEOPLASM OF BONE 07/14/2018 HUY STOEN MD Ot Z79.899 OTHER MORGUE ATTENDANT (CURRENT) DRUG THERAPY 07/14/2018 HUY STONE MD [...] 08/05/2018 HUY STONE MD Ot Z79.899 OTHER MORGUE ATTENDANT (CURRENT) DRUG THERAPY 08/05/2018 HUY STONE MD [...] 08/05/2018 HUY STONE MD Ot Z79.899 OTHER JAIL (CURRENT) DRUG THERAPY 08/05/2018 HUY STONE MD [...] 08/17/2018 HUY STONE MD Ot Z79.899 OTHER JAIL (CURRENT) DRUG THERAPY 08/17/2018 HUY STONE MD [...] 09/01/2018 HUY STONE MD Ot Z79.899 OTHER JAIL (CURRENT) DRUG THERAPY 09/01/2018 HUY STONE MD [...] 09/03/2018 ERIC BRADY MD Ot Z79.899 OTHER MORGUE ATTENDANT (CURRENT) DRUG THERAPY 09/03/2018 ERIC BRADY MD [...] 09/03/2018 ERIC BRADY MD Ot Z79.899 OTHER JAIL (CURRENT) DRUG THERAPY 09/03/2018 ERIC BRADY MD Ot Z90.11 ACQUIRED ABSENCE OF RIGHT BREAST AND NIP 09/03/2018 ERIC RBADY MD Ot Z90.79 ACQUIRED ABSENCE OF OTHER [...] 09/03/2018 HUY STONE MD Ot Z79.899 OTHER JAIL (CURRENT) DRUG THERAPY 09/03/2018 HUY STONE MD [...] 09/04/2018 HUY STONE MD Ot Z79.899 OTHER MORGUE ATTENDANT (CURRENT) DRUG THERAPY 09/04/2018 HUY STONE MD [...] 09/23/2018 HUY STONE MD Ot Z79.899 OTHER JAIL (CURRENT) DRUG THERAPY 09/23/2018 HUY STONE MD [...] 10/16/2018 HUY STONE MD Ot Z79.899 OTHER JAIL (CURRENT) DRUG THERAPY 10/16/2018 HUY STONE MD [...] 10/20/2018 HUY STONE MD Ot Z79.899 OTHER MORGUE ATTENDANT (CURRENT) DRUG THERAPY 10/20/2018 HUY STONE MD [...] 12/02/2018 HUY STONE MD Ot Z79.899 OTHER MORGUE ATTENDANT (CURRENT) DRUG THERAPY 12/02/2018 HUY STONE MD [...] 12/03/2018 HUY STONE MD Ot Z79.899 OTHER MORGUE ATTENDANT (CURRENT) DRUG THERAPY 12/03/2018 HUY STONE MD [...] 12/09/2018 HUY STONE MD Ot Z79.899 OTHER MORGUE ATTENDANT (CURRENT) DRUG THERAPY 12/09/2018 HUY STONE MD [...] 12/24/2018 HUY STONE MD Ot Z79.899 OTHER MORGUE ATTENDANT (CURRENT) DRUG THERAPY 12/24/2018 HUY STONE MD [...] 01/11/2019 HUY STONE MD Ot Z79.899 OTHER MORGUE ATTENDANT (CURRENT) DRUG THERAPY 01/11/2019 HUY STONE MD [...] 03/09/2019 HUY STONE MD Ot Z79.899 OTHER MORGUE ATTENDANT (CURRENT) DRUG THERAPY 03/09/2019 HUY STONE MD [...] 03/11/2019 HUY STONE MD Ot Z79.899 OTHER MORGUE ATTENDANT (CURRENT) DRUG THERAPY 03/11/2019 HUY STONE MD [...] 03/22/2019 HUY STONE MD Ot Z79.899 OTHER JAIL (CURRENT) DRUG THERAPY 03/22/2019 HUY STONE MD [...] 03/22/2019 HUY STONE MD Ot Z79.899 OTHER JAIL (CURRENT) DRUG THERAPY 03/22/2019 HUY STONE MD [...] 03/23/2019 HUY STONE MD Ot Z79.899 OTHER JAIL (CURRENT) DRUG THERAPY 03/23/2019 HUY STONE MD [...] 2019 HUY STONE MD Ot Z79.899 OTHER MORGUE ATTENDANT (CURRENT) DRUG THERAPY 2019 HUY STONE MD [...] 04/12/2019 HUY STONE MD Ot Z79.899 OTHER MORGUE ATTENDANT (CURRENT) DRUG THERAPY 04/12/2019 HUY STONE MD [...] 04/12/2019 HUY STONE MD Ot Z79.899 OTHER JAIL (CURRENT) DRUG THERAPY 04/12/2019 HUY STONE MD, [...] 04/13/2019 HUY STONE MD Ot Z79.899 OTHER MORGUE ATTENDANT (CURRENT) DRUG THERAPY 04/13/2019 HUY STONE MD, [...] 04/14/2019 HUY STONE MD Ot Z79.899 OTHER JAIL (CURRENT) DRUG THERAPY 04/14/2019 HUY STONE MD, [...] 04/14/2019 HUY STONE MD Ot Z79.899 OTHER MORGUE ATTENDANT (CURRENT) DRUG THERAPY 04/14/2019 HUY STONE MD, [...] 04/14/2019 HUY STONE MD, Ot Z79.899 OTHER JAIL (CURRENT) DRUG THERAPY 04/14/2019 HUY STONE MD, [...] NEOPLASM OF CENTRAL PORTION OF 04/17/2019 HUY STNOE MD, Ot 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 04/17/2019 HUY STONE MD, Ot Z79.899 OTHER MORGUE ATTENDANT (CURRENT) DRUG THERAPY 04/17/2019 HUY STONE MD, [...] 04/17/2019 HUY STONE MD, Ot Z79.899 OTHER MORGUE ATTENDANT (CURRENT) DRUG THERAPY 04/17/2019 HUY STONE MD, [...] 04/17/2019 HUY STONE MD, Ot Z79.899 OTHER JAIL (CURRENT) DRUG THERAPY 04/17/2019 HUY STONE MD, [...] 04/17/2019 HUY STONE MD, Ot Z79.899 OTHER MORGUE ATTENDANT (CURRENT) DRUG THERAPY 04/17/2019 HUY STONE MD, [...] 04/17/2019 HUY STONE MD, Ot Z79.899 OTHER MORGUE ATTENDANT (CURRENT) DRUG THERAPY 04/17/2019 HUY STONE MD, [...] 04/19/2019 HUY STONE MD, Ot Z79.899 OTHER MORGUE ATTENDANT (CURRENT) DRUG THERAPY 04/19/2019 HUY STONE MD, [...] 04/21/2019 HUY STONE MD Ot Z79.899 OTHER MORGUE ATTENDANT (CURRENT) DRUG THERAPY 04/21/2019 HUY STONE MD, [...] 04/21/2019 HUY STONE MD, Ot Z79.899 OTHER JAIL (CURRENT) DRUG THERAPY 04/21/2019 HUY STONE MD, [...] 04/21/2019 HUY STONE MD Ot Z79.899 OTHER MORGUE ATTENDANT (CURRENT) DRUG THERAPY 04/21/2019 HUY STONE MD, [...] 04/21/2019 HUY STONE MD Ot Z79.899 OTHER JAIL (CURRENT) DRUG THERAPY 04/21/2019 HUY STONE MD, [...] 04/21/2019 HUY STONE MD, Ot Z79.899 OTHER JAIL (CURRENT) DRUG THERAPY 04/21/2019 HUY STONE MD, [...] 04/22/2019 HUY STONE MD, Ot Z79.899 OTHER JAIL (CURRENT) DRUG THERAPY 04/22/2019 HUY STONE MD, [...] 04/29/2019 HUY STONE MD, Ot Z79.899 OTHER JAIL (CURRENT) DRUG THERAPY 04/29/2019 HUY STONE MD, [...] 04/29/2019 HUY STONE MD, Ot Z79.899 OTHER JAIL (CURRENT) DRUG THERAPY 04/29/2019 HUY STONE MD, [...] 04/30/2019 HUY STONE MD, Ot Z79.899 OTHER MORGUE ATTENDANT (CURRENT) DRUG THERAPY 04/30/2019 HUY STONE MD, [...] Ot R11.2 NAUSEA WITH VOMITING, UNSPECIFIED 04/30/2019 LENAMAYGET Desirae Ot R18.0 MALIGNANT ASCITES 04/30/2019 LENAAMYGET [...] 05/04/2019 HUY STONE MD, Ot Z79.899 OTHER JAIL (CURRENT) DRUG THERAPY 05/04/2019 HUY STONE MD, [...] 05/04/2019 HUY STONE MD, Ot Z79.899 OTHER JAIL (CURRENT) DRUG THERAPY 05/04/2019 HUY STONE MD, Ot Z85. 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 8 OTHER ASCITES 05/05/2019 HYU STONE MD, Ot C50.311 MALIG NEOPLM OF [...] IMM 05/06/2019 HUY STONE MD, Ot Z79.891 JAIL (CURRENT) USE OF OPIATE ANALGE 05/06/2019 HUY STONE MD, Ot Z79.899 OTHER JAIL (CURRENT) DRUG THERAPY 05/06/2019 HUY STONE MD, [...] 05/10/2019 HUY STONE MD, Ot Z79.899 OTHER JAIL (CURRENT) DRUG THERAPY 05/10/2019 HUY STONE MD, [...] 05/10/2019 HUY STONE MD Ot Z79.899 OTHER JAIL (CURRENT) DRUG THERAPY 05/10/2019 HUY STONE MD, [...] 05/11/2019 HUY STONE MD Ot Z79.899 OTHER JAIL (CURRENT) DRUG THERAPY 05/11/2019 HUY STONE MD, [...] 05/11/2019 HUY STONE MD, Ot Z79.899 OTHER JAIL (CURRENT) DRUG THERAPY 05/11/2019 HUY STONE MD, [...] 05/11/2019 HUY STONE MD Ot Z79.899 OTHER MORGUE ATTENDANT (CURRENT) DRUG THERAPY 05/11/2019 HUY STONE MD, [...] 05/11/2019 HUY STONE MD, Ot Z79.899 OTHER MORGUE ATTENDANT (CURRENT) DRUG THERAPY 05/11/2019 HUY STONE MD, [...] 06/03/2019 HUY STONE MD Ot Z79.899 OTHER MORGUE ATTENDANT (CURRENT) DRUG THERAPY 06/03/2019 HUY STONE MD [...] 06/03/2019 HUY STONE MD Ot Z79.899 OTHER JAIL (CURRENT) DRUG THERAPY 06/03/2019 HUY STONE MD [...] 51 SECONDARY MALIGNANT NEOPLASM OF BONE 06/03/2019 [place] DO, NICKIE Zuleta Ot R18. 8 OTHER [...] 06/11/2019 HUY STONE MD, Ot Z79.899 OTHER JAIL (CURRENT) DRUG THERAPY 06/11/2019 HUY STONE MD, [...] 06/20/2019 HUY STONE MD, Ot Z79.899 OTHER MORGUE ATTENDANT (CURRENT) DRUG THERAPY 06/20/2019 HUY STONE MD, [...] 06/22/2019 HUY STONE MD, Ot Z79.899 OTHER JAIL (CURRENT) DRUG THERAPY 06/22/2019 HUY STONE MD, [...] 06/28/2019 HUY STONE MD Ot Z79.899 OTHER MORGUE ATTENDANT (CURRENT) DRUG THERAPY 06/28/2019 HUY STONE MD [...] 07/08/2019 HUY STONE MD Ot Z79.899 OTHER JAIL (CURRENT) DRUG THERAPY 07/08/2019 HUY STONE MD [...] 07/28/2019 HUY STONE MD, Ot Z79.899 OTHER MORGUE ATTENDANT (CURRENT) DRUG THERAPY 07/28/2019 HUY STONE MD, [...] 07/28/2019 HUY STONE MD, Ot Z79.899 OTHER MORGUE ATTENDANT (CURRENT) DRUG THERAPY 07/28/2019 HUY STONE MD, [...] K82.8 OTHER SPECIFIED DISEASES OF GALLBLADDER 07/28/2019 TCIO GALAN MD Ot R18.8 OTHER ASCITES 07/28/2019 [...] 07/28/2019 HUY STONE MD, Ot Z79.899 OTHER JAIL (CURRENT) DRUG THERAPY 07/28/2019 HUY STONE MD, [...] 08/05/2019 HUY STONE MD, Ot Z79.899 OTHER MORGUE ATTENDANT (CURRENT) DRUG THERAPY 08/05/2019 HUY STONE MD, [...] 08/10/2019 HUY STONE MD Ot Z79.899 OTHER MORGUE ATTENDANT (CURRENT) DRUG THERAPY 08/10/2019 HUY STONE MD, [...] 08/12/2019 HUY STONE MD Ot Z79.899 OTHER MORGUE ATTENDANT (CURRENT) DRUG THERAPY 08/12/2019 HUY STONE MD [...] 09/02/2019 HUY STONE MD Ot Z79.899 OTHER MORGUE ATTENDANT (CURRENT) DRUG THERAPY 09/02/2019 HUY STONE MD [...] 09/22/2019 HUY STONE MD, Ot Z79.899 OTHER MORGUE ATTENDANT (CURRENT) DRUG THERAPY 09/22/2019 HUY STONE MD, [...] 09/22/2019 TASHA SMITH MD Ot Z79.899 OTHER JAIL (CURRENT) DRUG THERAPY 09/22/2019 TASHA SMITH MD Ot Z85. 3 PERSONAL HISTORY OF MALIGNANT NEOPLASM O 09/22/2019 TASHA SMITH MD Ot Z98.890 OTHER SPECIFIED POSTPROCEDURAL STATES 09/23/2019 ATSHA SMITH MD Ot A41. 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 9 ANEMIA, UNSPECIFIED 09/23/2019 TASHA SMITH MD Ot F32. 9 MAJOR DEPRESSIVE DISORDER, SINGLE EPISOD 09/23/2019 TAHSA SMITH MD Ot F90. 9 ATTENTION-DEFICIT HYPERACTIVITY [...] 09/23/2019 TASHA SMITH MD Ot Z79.899 OTHER JAIL (CURRENT) DRUG THERAPY 09/23/2019 TASHA SMITH MD [...] 09/23/2019 TASHA SMITH MD, Ot Z79.899 OTHER MORGUE ATTENDANT (CURRENT) DRUG THERAPY 09/23/2019 TASHA SMITH MD Ot Z85. 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 8 OTHER ASCITES 09/23/2019 HUY STONE MD, Ot Z79.899 OTHER MORGUE ATTENDANT (CURRENT) DRUG THERAPY 09/23/2019 HUY STONE MD Ot Z90. 11 ACQUIRED ABSENCE OF RIGHT BREAST AND NIP 09/23/2019 HUY STONE MD Ot Z90. 79 ACQUIRED ABSENCE OF OTHER GENITAL ORGAN( 09/23/2019 TASHA SMITH MD Ot A41. 9 [...] 09/23/2019 TASHA SMITH MD Ot Z79.899 OTHER JAIL (CURRENT) DRUG THERAPY 09/23/2019 TASHA SMITH MD [...] 09/23/2019 TASHA SMITH MD, Ot Z79.899 OTHER MORGUE ATTENDANT (CURRENT) DRUG THERAPY 09/23/2019 TASHA SMITH MD, [...] 09/24/2019 HUY STONE MD, Ot Z79.899 OTHER MORGUE ATTENDANT (CURRENT) DRUG THERAPY 09/24/2019 HUY STONE MD, [...] 09/24/2019 HUY STONE MD Ot Z79.899 OTHER MORGUE ATTENDANT (CURRENT) DRUG THERAPY 09/24/2019 HUY STONE MD [...] 09/24/2019 TASHA SMITH MD Ot Z79.899 OTHER JAIL (CURRENT) DRUG THERAPY 09/24/2019 TASHA SMITH MD [...] 09/24/2019 TASHA SMITH MD Ot Z79.899 OTHER MORGUE ATTENDANT (CURRENT) DRUG THERAPY 09/24/2019 TASHA SMITH MD, [...] 10/12/2019 HUY STONE MD Ot Z79.899 OTHER JAIL (CURRENT) DRUG THERAPY 10/12/2019 HUY STONE MD [...] 10/12/2019 HUY STONE MD Ot Z79.899 OTHER JAIL (CURRENT) DRUG THERAPY 10/12/2019 HUY STONE MD [...] 10/12/2019 HUY STONE MD, Ot Z79.899 OTHER JAIL (CURRENT) DRUG THERAPY 10/12/2019 HUY STONE MD, [...] 10/14/2019 HUY STONE MD, Ot Z79.899 OTHER JAIL (CURRENT) DRUG THERAPY 10/14/2019 HUY STONE MD, Ot Z90. 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 8 OTHER ASCITES 10/25/2019 APOLLO GROSS MD Ot E03. 9 HYPOTHYROIDISM, UNSPECIFIED 10/25/2019 APOLLO GROSS MD Ot F32. 9 MAJOR DEPRESSIVE DISORDER, SINGLE EPISOD 10/25/2019 APOLLO GROSS MD Ot F90. 9 ATTENTION-DEFICIT HYPERACTIVITY DISORDER 10/25/2019 APOLLO GROSS MD Ot G62. 9 POLYNEUROPATHY, UNSPECIFIED 10/25/2019 APOLLO GROSS MD Ot I10 ESSENTIAL (PRIMARY) HYPERTENSION 10/25/2019 APOLLO GROSS MD Ot J45.909 UNSPECIFIED ASTHMA, UNCOMPLICATED 10/25/2019 APOLLO GROSS MD Ot K21. 9 GASTRO-ESOPHAGEAL REFLUX DISEASE WITHOUT 10/25/2019 APOLLO GROSS MD Ot N39. 0 URINARY TRACT INFECTION, SITE NOT SPECIF 10/25/2019 APOLLO GROSS MD Ot R11. 2 NAUSEA WITH VOMITING, UNSPECIFIED 10/25/2019 APOLLO GROSS MD Ot Z79. 51 MORGUE ATTENDANT (CURRENT) USE OF INHALED STERO 10/25/2019 PAOLLO GROSS MD, Ot Z79.890 HORMONE REPLACEMENT THERAPY 10/25/2019 APOLLO GROSS MD Ot Z80. 8 FAMILY HISTORY OF MALIGNANT NEOPLASM OF 10/25/2019 APOLLO GROSS MD, Ot Z82. 49 FAMILY HX OF ISCHEM HEART DIS AND OTH DI 10/25/2019 APOLLO GROSS MD Ot Z85. 3 PERSONAL HISTORY OF MALIGNANT NEOPLASM O 10/25/2019 APOLLO GROSS MD Ot Z85.830 PERSONAL HISTORY OF MALIGNANT NEOPLASM O 10/25/2019 APOLLO GROSS MD, Ot Z88. 5 ALLERGY STATUS TO NARCOTIC AGENT STATUS 10/25/2019 APOLLO GROSS MD Ot Z88. 6 ALLERGY STATUS TO ANALGESIC AGENT STATUS 10/25/2019 APOLLO GROSS MD, Ot Z88. 8 ALLERGY STATUS TO OTH DRUG/MEDS/BIOL SUB 10/25/2019 APOLLO GROSS MD Ot Z96. 0 PRESENCE OF UROGENITAL IMPLANTS Procedures Code Description Performed By Per formed On [id number] DR GRANADOS OF PERITONEAL CAVITY, PERCUTANE 04/19/2019 [id number] IN SERTION OF INFUSION DEV INTO SUP VENA 04/20/2019 [id number] IN SERT OF TUNNEL VAD INTO CHEST SUBCU/FA 04/20/[id number] GRANADOS OF PERITONEAL CAVITY WITH DRAIN 06/12/2019 [id number] IN SERTION OF TUNNEL VAD INTO ABD [...] OF GROWTH Isolated NRG Bacterial blood culture [id number] NRG Bacterial blood culture - 04/28/19 20:58 [...] culture - 04/29/19 02:20 Bacterial urine culture [id number] NRG COLONY COUNT 50,000 CFU/ML NRG FTX;REPORTABLE [...] pa ashwin - 04/29/19 08:57 WRISTBAND NUMBER [id number] NRG ABO+Rh group OP NRG Blood group [...] OF GROWTH Isolated NRG Bacterial blood culture [id number] NRG FREE TEXT ENTRY 2 PRELIM RAPID [...] culture - 05/22/19 17:31 Bacterial urine culture [id number] NRG COLONY COUNT >100,000/ML NRG FTX;REPORTABLE REPORTED BY [facility] NR FREE TEXT ENTRY 2 PRELIM RAPID ID BY [facility] 05-23-19, 1 319 NRG FREE TEXT ENTRY 3 PRELIM RAPID ID BY [facility] 05-23-19,13 17 NRG FREE TEXT ENTRY 4 [...] pa ashwin - 06/13/19 11:15 WRISTBAND NUMBER [id number] NRG ABO+Rh group OP NRG Blood group [...] Staphylococcus aureus (MRSA) scr eening culture NEG [facility] [id number] - 06/24/19 14:55 [id number] SPECIMEN AVAILABLE [facility] COVID- - 08/02/19 09:37 SARS-CoV-2 RNA [...] (A MEMBER OF THE [employer]IN[employer] [facility]) NR MRSA SCREEN SUSCEPTIBILITY REPORTED 10/06/19 16:15 NRG [...] culture - 09/21/19 20:12 Bacterial urine culture [id number] NRG COLONY COUNT 30,000 CFU/ML NRG SUSCEPTIBILITY [...] ng/mL <0.10 Whole blood hemoglobin and hematocrit [facility] 09/22/19 06:07 Venous blood hemoglobin measurement (mass/volume) 6.9 g/dL 11.5-16.0 Blood hematocrit (volume fraction) 23 % 35-52 RED CELLS LEUKO REDUCED AS1 - 09/22/19 0 6:47 RED CELLS LEUKO REDUCED AS1 T RANSFUSED 09/22/19 1106 NR Blood type T Indirect antibody screen [facility] 09/22/19 06:47 WRISTBAND NUMBER [id number] NRG ABO+Rh group OP NRG Blood group antibody screen NEGATIVE NR G Whole blood hemoglobin and hematocrit [facility] 09/22/19 18:30 Venous blood hemoglobin measurement (mass/volume) 8.1 g/dL 11.5-16.0 Blood hematocrit (volume fraction) 26 % 35-52 Whole blood hemoglobin and hematocrit [facility] 09/23/19 05:55 Venous blood hemoglobin measurement (mass/volume) 8.2 g/dL 11.5-16.0 Blood hematocrit (volume fraction) 26 % 35-52 PROCALCITONIN (PCT) - 09/23/19 05:55 PROCALCITONIN (PCT) 0.12 ng/mL <0.10 Whole blood hemoglobin and hematocrit [facility] 09/23/19 19:08 Venous blood hemoglobin measurement (mass/volume) [...] ine sediment by light microscopy MODERATE NRG Bacterial urine culture - 10/21/19 15:00 Bacterial urine culture NG NRG Encounters ACCT No. Visit Date/Time Discharge Status Pt. Type Provider Facility Loc./Unit Complaint [id number] 10/18/2019 08:12:00 Document Registration [id number] 10/18/2019 08:06:10 Document Registration [id number] 08/02/2019 10:00:00 Document Registration [id number] 10/20/2019 09:08:02 10/20/2019 23:59: 59 CLS Outpatient Home [facility] [id number] 08/10/2019 12:22:11 08/10/2019 23:59: 59 CLS Outpatient Home Frank [id number] 07/27/2019 13:52:27 07/27/2019 23:59: 59 CLS Outpatient EITAN KRUGER [id number] 05/25/2019 10:45:15 05/25/2019 23:59: 59 CLS Outpatient Home [facility] [id number] 04/15/2019 15:27:43 04/15/2019 23:59: 59 CLS Outpatient EITAN KRUGER [id number] 04/15/2019 11:36:00 04/15/2019 23:59: 59 CLS Outpatient Home Frank [id number] 10/14/2019 09:36:33 Document Registration [id number] 09/03/2019 16:04:46 Document Registration [id number] 07/31/2019 09:52:53 Document Registration [id number] 07/30/2019 12:20:13 Document Registration [id number] 05/25/2019 10:37:09 Document Registration [id number] 04/15/2019 13:01:31 Document Registration [id number] 04/15/2019 13:01:30 Document Registration [id number] 04/15/2019 13:01:29 Document Registration [id number] 10/22/2019 09:45:00 23:59:59 CLS Outpatient HUY STONE MD Via [facility] ONC [id number] 10/21/2019 11:40:00 16:52:00 DIS Outpatient APOLLO GROSS MD Via [facility] ER NAUSEA/DEHYDRATION CONC ERNS [id number] 10/20/2019 09:31:00 23:59:59 CLS Outpatient HUY STONE MD [facility] RAD CANCER OF RIGHT BREAST [id number] 09/21/2019 21:00:00 14:50:00 DIS Inpatient LUIS FRAUSTO, TASHA Dukes [facility] 4TH SEPSIS, UTI [id number] 08/31/2019 09:23:00 00:01:00 DIS Outpatient HUY STONE MD [facility] ONC [id number] 06/17/2019 09:08:00 00:01:00 DIS Outpatient HUY STONE MD [facility] ONC [id number] 06/11/2019 20:00:00 15:15:00 DIS Inpatient ZAIN LANDRUM MD Via [facility] 4TH SBO,METASTATIC CA [id number] 05/24/2019 12:58:00 17:10:00 DIS Outpatient HUY STONE MD Via [facility] RAD ASCITES,CA OF RT BREAST ,SECONDARY CA OF BONE [id number] 05/22/2019 15:00:00 18:18:00 DIS Emergency CADEN HARDIN MD Via [facility] ER FEVER 102 / NEHA MO PT [id number] 05/12/2019 13:00:00 23:59:59 CLS Outpatient NICKIE PERDOMO DO [facility] RAD CANCER OF RT BREAST,SEC ONDARY CANCER OF BONE [id number] 05/12/2019 12:10:00 23:59:59 CLS Outpatient HUY STONE MD [facility] RAD CA OF RT BREAST,SECONDA RY CA OF BONE [id number] 05/11/2019 07:45:00 23:59:59 CLS Outpatient HUY STONE MD [facility] RAD CANCER OF RT BREAST,DIZ ZINESS [id number] 05/05/2019 17:14:00 12:30:00 DIS Inpatient HUY STONE MD [facility] 4TH N/V [id number] 04/28/2019 21:59:00 17:52:00 DIS Inpatient HUY STONE MD Via [facility] 4TH NAUSEA,VOMITING,BREAST CA [id number] 04/21/2019 10:57:00 22:00:00 DIS Inpatient HUY STONE MD [facility] 4TH SWB, NAUSEA, VOMITING, BREAST CANCER [id number] 04/18/2019 12:04:00 10:50:00 DIS Inpatient WILFREDO PAREDES [facility] 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, METAST ATIC BREAST CA [id number] 04/14/2019 12:38:00 23:59:59 CLS Outpatient NICKIE PERDOMO DO [facility] RAD ABD OSCITES [id number] 04/14/2019 07:01:00 23:59:59 CLS Outpatient TICO GALAN MD [facility] RAD RUQ PAIN [id number] 04/13/2019 19:02:00 22:48:00 DIS Emergency TICO GALAN MD [facility] ER ABD PAIN [id number] 04/02/2019 12:34:00 23:59:59 CLS Outpatient HUY STONE MD [facility] RAD CANCER OF RIGHT BREAST, SECONDARY CANCER OF BONE [id number] 2019 10:26:00 23:59:59 CLS Outpatient HUY STONE MD [facility] RAD CANCER OF RT BREAST [id number] 03/23/2019 14:52:00 23:59:59 CLS Outpatient HUY STONE MD [facility] RAD CANCER OF RT BREAST,DIANA QUIROGA [id number] 03/01/2019 14:00:00 00:01:00 DIS Outpatient HUY STONE MD [facility] ONC [id number] 12/02/2018 15:28:00 019 00:01:00 DIS Outpatient HUY STONE MD [facility] ONC [id number] 09/02/2018 13:53:00 019 08:35:00 DIS Outpatient ERIC BRADY MD [facility] ONC [id number] 09/01/2018 08:17:00 019 00:01:00 DIS Outpatient HUY STONE MD [facility] ONC [id number] 05/13/2018 13:39:00 019 00:01:00 DIS Outpatient HUY STONE MD [facility] ONC [id number] 03/02/2018 10:55:00 018 10:56:00 DIS Outpatient BERTHA FRAUSTO, HUY [facility] ONC
[2019-10-26] MEDS ORDERED: LACTATED RINGERS 1,000 ML IV ONE (23:44)
[2019-10-27 00:20] LABS: BASOPHILS % (AUTO) 0 % (0-10); EOSINOPHILS % (AUTO) 0 % (0-10); HEMATOCRIT 29 % (35-52); HEMOGLOBIN 9.1 G/DL (11.5-16.0); LYMPHOCYTES # (AUTO) 0.6 X 10^3 (1.0-4.0); LYMPHOCYTES % (AUTO) 5 % (12-44); MEAN CORPUSCULAR HEMOGLOBIN 27 PG (25-34); MEAN CORPUSCULAR HGB CONC 31 G/DL (32-36); MEAN CORPUSCULAR VOLUME 86 FL (80-99); MEAN PLATELET VOLUME 9.5 FL (7.4-10.4); MONOCYTES # (AUTO) 1.1 X 10^3 (0.0-1.0); MONOCYTES % (AUTO) 10 % (0-12); NEUTROPHILS % (AUTO) 84 % (42-75); PLATELET COUNT 505 10^3/uL (130-400); RED CELL DISTRIBUTION WIDTH 18.7 % (10.0-14.5); WHITE BLOOD COUNT 10.7 10^3/uL (4.3-11.0)
[2019-10-27 00:21] LABS: BILIRUBIN,URINE NEGATIVE (NEGATIVE); CLARITY,URINE CLOUDY; COLOR,URINE AMBER; GLUCOSE, URINE (UA) NEGATIVE (NEGATIVE); KETONES,URINE TRACE (NEGATIVE); LEUKOCYTE ESTERASE ,URINE NEGATIVE (NEGATIVE); NITRITE,URINE NEGATIVE (NEGATIVE); PROTEIN,URINE 2+ (NEGATIVE)
[2019-10-27 00:30] LABS: BACTERIA,URINE TRACE /HPF; CALCIUM OXALATE CRYSTALS,UR FEW /LPF; RBC,URINE 0-2 /HPF; SQUAMOUS EPITHELIAL CELL,UR 0-2 /HPF
[2019-10-27] MEDS ORDERED: morphine INJ 10 MG/ML 1ML (SYR OR VIAL) IVP ONE (00:30)
[2019-10-27] MEDS ORDERED: ONDANSETRON 4 MG/2 ML (SDV) Z0FRAN IVP ONE ×2 (00:30→02:30)
[2019-10-27 00:31] LABS: HYALINE CASTS, URINE 0-2 /LPF; WHITE BLOOD CELL CASTS, URINE 0-2 /LPF
[2019-10-27 00:38] LABS: ALBUMIN 2.6 GM/DL (3.2-4.5); BILIRUBIN,TOTAL 0.3 MG/DL (0.1-1.0); CALCIUM 9.3 MG/DL (8.5-10.1); CREATININE SERUM 0.97 MG/DL (0.60-1.30); MAGNESIUM 1.2 MG/DL (1.6-2.4); POTASSIUM 4.1 MMOL/L (3.6-5.0)
[2019-10-27 00:49] LABS: BAND NEUTROPHILS 2 %; LYMPHOCYTES % (MANUAL) 6 %; MONOCYTES % (MANUAL) 11 %; NEUTROPHILS % (MANUAL) 60 %
[2019-10-27 00:50] LABS: ANISOCYTOSIS SLIGHT; EOSINOPHILS % (MANUAL) 1 %; POLYCHROMASIA SLIGHT
[2019-10-27] MEDS ORDERED: IOHEXOL 350 MG/ML 100 ML (OMNIPAQUE 350) VIAL IV ONE (01:30)
[2019-10-27] MEDS ORDERED: NS 100 ML (IVPB) BAG IV ONE (01:30)
[2019-10-27] MEDS ORDERED: SCOPOLAMINE 1.5 MG (TRANSDERM-SCOP) PATCH TD ONE (02:30)
[2019-10-27] MEDS ORDERED: PROMETHAZINE INJ 25 MG/ML (PHENERGAN) AMP IVP ONE (02:30)
[2019-10-27] MEDS ORDERED: PANTOPRAZOLE 40 MG (PROTONIX) VIAL IV ONE (02:30)
[2019-10-27] MEDS: MAGNESIUM 1 GM/100 ML IVPB 100 ML IV SCH ×2 (02:31→03:48)
--- OUTSIDE RECORDS SUMMARY | 2019-10-27 02:59 | XMS REPORT | Continuity of Care Document ---
Demographics Preferred Language Unknown Marital Status Unknown Gnosticism Affiliation Unknown Race Unknown Ethnic Group Unknown Author Organization Unknown Address Unknown Phone Unavailable Allergies Active Description Code Type Severity Reaction Onset Reported/Identified Relationship to Patient Clinical Status Yes ASPIRIN [id number] DRUG N/A N/A Yes COMPAZINE [id number] DRUG N/A N/A Yes PROCHLORPERAZINE [id number] DRUG N/A N/A Yes aspirin [id number] Drug Allergy Unknown N/A 01/13/2018 Yes morphine [id number] Drug Allergy Moderate Itching 04/18/2019 Yes prochlorperazine [id number] Drug Allergy Unknown N/A 06/11/2019 Medications There is no data. 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 02/11/2018 HUY STONE MD Ot Z79.899 OTHER CHANGE CONTROL SPECIALIST (CURRENT) DRUG THERAPY 02/11/2018 HUY STONE [...] 02/17/2018 HUY STONE MD Ot Z79.899 OTHER CHANGE CONTROL SPECIALIST (CURRENT) DRUG THERAPY 02/17/2018 HUY STONE [...] 03/02/2018 HUY STONE MD Ot Z79.899 OTHER NURSING HOME (CURRENT) DRUG THERAPY 03/02/2018 HUY STONE MD [...] 03/02/2018 HUY STONE MD Ot Z79.899 OTHER CHANGE CONTROL SPECIALIST (CURRENT) DRUG THERAPY 03/02/2018 HUY STONE MD [...] 03/03/2018 HUY STONE MD Ot Z79.899 OTHER CHANGE CONTROL SPECIALIST (CURRENT) DRUG THERAPY 03/03/2018 HUY STONE [...] 04/13/2018 HUY STONE MD Ot Z79.899 OTHER NURSING HOME (CURRENT) DRUG THERAPY 04/13/2018 HUY STONE MD [...] 04/14/2018 HUY STONE MD Ot Z79.899 OTHER NURSING HOME (CURRENT) DRUG THERAPY 04/14/2018 HUY STONE MD [...] 05/31/2018 HUY STONE MD Ot Z79.899 OTHER CHANGE CONTROL SPECIALIST (CURRENT) DRUG THERAPY 05/31/2018 HUY STONE [...] 06/01/2018 HUY STONE MD, Ot Z79.899 OTHER NURSING HOME (CURRENT) DRUG THERAPY 06/01/2018 HUY STONE MD [...] 06/03/2018 HUY STONE MD Ot Z79.899 OTHER CHANGE CONTROL SPECIALIST (CURRENT) DRUG THERAPY 06/03/2018 HUY STONE MD [...] 06/04/2018 HUY STONE MD, Ot Z79.899 OTHER NURSING HOME (CURRENT) DRUG THERAPY 06/04/2018 HUY STONE MD, [...] 06/06/2018 HUY STONE MD Ot Z79.899 OTHER NURSING HOME (CURRENT) DRUG THERAPY 06/06/2018 HUY STONE MD [...] 51 SECONDARY MALIGNANT NEOPLASM OF BONE 07/08/2018 UHY STONE MD Ot Z79.899 OTHER NURSING HOME (CURRENT) DRUG THERAPY 07/08/2018 HUY STONE MD [...] 07/14/2018 HUY STONE MD Ot Z79.899 OTHER CHANGE CONTROL SPECIALIST (CURRENT) DRUG THERAPY 07/14/2018 HUY STONE MD [...] 08/05/2018 HUY STONE MD Ot Z79.899 OTHER CHANGE CONTROL SPECIALIST (CURRENT) DRUG THERAPY 08/05/2018 HUY STONE [...] 08/05/2018 HUY STONE MD Ot Z79.899 OTHER NURSING HOME (CURRENT) DRUG THERAPY 08/05/2018 HUY STONE MD [...] 08/17/2018 HUY STONE MD Ot Z79.899 OTHER NURSING HOME (CURRENT) DRUG THERAPY 08/17/2018 HUY STONE MD [...] 09/01/2018 HUY STONE MD Ot Z79.899 OTHER NURSING HOME (CURRENT) DRUG THERAPY 09/01/2018 HUY STONE MD [...] 09/03/2018 ERIC BRADY MD Ot Z79.899 OTHER CHANGE CONTROL SPECIALIST (CURRENT) DRUG THERAPY 09/03/2018 ERIC BRADY MD [...] 09/03/2018 ERIC BRADY MD Ot Z79.899 OTHER NURSING HOME (CURRENT) DRUG THERAPY 09/03/2018 ERIC BRADY MD [...] 09/03/2018 HUY STONE MD Ot Z79.899 OTHER NURSING HOME (CURRENT) DRUG THERAPY 09/03/2018 HUY STONE MD [...] 09/04/2018 HUY STONE MD Ot Z79.899 OTHER CHANGE CONTROL SPECIALIST (CURRENT) DRUG THERAPY 09/04/2018 HUY STONE [...] 09/23/2018 HUY STONE MD Ot Z79.899 OTHER NURSING HOME (CURRENT) DRUG THERAPY 09/23/2018 HUY STONE MD [...] 10/16/2018 HUY STONE MD Ot Z79.899 OTHER NURSING HOME (CURRENT) DRUG THERAPY 10/16/2018 HUY STONE MD [...] 10/20/2018 HUY STONE MD Ot Z79.899 OTHER CHANGE CONTROL SPECIALIST (CURRENT) DRUG THERAPY 10/20/2018 HUY STONE [...] 12/02/2018 HUY STONE MD Ot Z79.899 OTHER CHANGE CONTROL SPECIALIST (CURRENT) DRUG THERAPY 12/02/2018 HUY STONE MD [...] 12/03/2018 HUY STONE MD Ot Z79.899 OTHER CHANGE CONTROL SPECIALIST (CURRENT) DRUG THERAPY 12/03/2018 HUY STONE MD [...] 12/09/2018 HUY STONE MD Ot Z79.899 OTHER CHANGE CONTROL SPECIALIST (CURRENT) DRUG THERAPY 12/09/2018 HUY STONE MD [...] 12/24/2018 HUY STONE MD Ot Z79.899 OTHER CHANGE CONTROL SPECIALIST (CURRENT) DRUG THERAPY 12/24/2018 HUY STONE MD [...] 01/11/2019 HUY STONE MD Ot Z79.899 OTHER CHANGE CONTROL SPECIALIST (CURRENT) DRUG THERAPY 01/11/2019 HUY STONE [...] 03/09/2019 HUY STONE MD Ot Z79.899 OTHER CHANGE CONTROL SPECIALIST (CURRENT) DRUG THERAPY 03/09/2019 HUY STONE MD [...] SECONDARY MALIGNANT NEOPLASM OF BONE 03/11/2019 HUY STOEN MD Ot Z79.899 OTHER CHANGE CONTROL SPECIALIST (CURRENT) DRUG THERAPY 03/11/2019 HUY STONE [...] 03/22/2019 HUY STONE MD Ot Z79.899 OTHER NURSING HOME (CURRENT) DRUG THERAPY 03/22/2019 HUY STONE MD [...] 03/22/2019 HUY STONE MD Ot Z79.899 OTHER NURSING HOME (CURRENT) DRUG THERAPY 03/22/2019 HUY STONE MD [...] 03/23/2019 HUY STONE MD Ot Z79.899 OTHER NURSING HOME (CURRENT) DRUG THERAPY 03/23/2019 HUY STONE MD [...] 2019 HUY STONE MD Ot Z79.899 OTHER CHANGE CONTROL SPECIALIST (CURRENT) DRUG THERAPY 2019 HUY STONE MD [...] 04/12/2019 HUY STONE MD Ot Z79.899 OTHER CHANGE CONTROL SPECIALIST (CURRENT) DRUG THERAPY 04/12/2019 HUY STONE MD [...] 04/12/2019 HUY STONE MD Ot Z79.899 OTHER NURSING HOME (CURRENT) DRUG THERAPY 04/12/2019 HUY STONE MD, [...] 04/13/2019 HUY STONE MD Ot Z79.899 OTHER CHANGE CONTROL SPECIALIST (CURRENT) DRUG THERAPY 04/13/2019 HUY STONE MD, [...] 04/14/2019 HUY STONE MD Ot Z79.899 OTHER NURSING HOME (CURRENT) DRUG THERAPY 04/14/2019 HUY STONE MD, [...] 04/14/2019 HUY STONE MD Ot Z79.899 OTHER CHANGE CONTROL SPECIALIST (CURRENT) DRUG THERAPY 04/14/2019 HUY STONE [...] 04/14/2019 HUY STONE MD, Ot Z79.899 OTHER NURSING HOME (CURRENT) DRUG THERAPY 04/14/2019 HUY STONE MD, [...] 04/17/2019 HUY STONE MD, Ot Z79.899 OTHER CHANGE CONTROL SPECIALIST (CURRENT) DRUG THERAPY 04/17/2019 HUY STONE [...] 04/17/2019 HUY STONE MD, Ot Z79.899 OTHER CHANGE CONTROL SPECIALIST (CURRENT) DRUG THERAPY 04/17/2019 HUY STONE MD, Ot 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 79 ACQUIRED ABSENCE OF OTHER GENITAL ORGAN( 04/17/2019 HYU STONE MD, Ot C50.911 MALIGNANT NEOPLASM OF [...] 04/17/2019 HUY STONE MD, Ot Z79.899 OTHER NURSING HOME (CURRENT) DRUG THERAPY 04/17/2019 HUY STONE MD, [...] K82.8 OTHER SPECIFIED DISEASES OF GALLBLADDER 04/17/2019 INCKIE PERDOMO DO Ot R18. 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 04/21/2019 HUY STONE MD Ot Z79.899 OTHER CHANGE CONTROL SPECIALIST (CURRENT) DRUG THERAPY 04/21/2019 HUY STONE [...] N13.1 HYDRONEPHROSIS W URETERAL STRICTURE, NEC 04/21/2019 LNEAWILFREDO Ot R11.2 NAUSEA WITH VOMITING, UNSPECIFIED 04/21/2019 [...] 04/21/2019 HUY STONE MD, Ot Z79.899 OTHER NURSING HOME (CURRENT) DRUG THERAPY 04/21/2019 HUY STONE MD, [...] 04/21/2019 HUY STONE MD Ot Z79.899 OTHER CHANGE CONTROL SPECIALIST (CURRENT) DRUG THERAPY 04/21/2019 HUY STONE [...] 04/21/2019 HUY STONE MD Ot Z79.899 OTHER NURSING HOME (CURRENT) DRUG THERAPY 04/21/2019 HUY STONE MD, [...] 04/21/2019 HUY STONE MD, Ot Z79.899 OTHER NURSING HOME (CURRENT) DRUG THERAPY 04/21/2019 HUY STONE MD, [...] MALIG NEOPLM OF LOWER-INNER QUADRANT OF 04/21/2019 UHY STONE MD, Ot C79. 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 8 OTHER ASCITES 04/30/2019 ANGELIA FRAUTSO, TICO Ladd Ot K76.89 OTHER SPECIFIED DISEASES [...] 05/04/2019 HUY STONE MD, Ot Z79.899 OTHER NURSING HOME (CURRENT) DRUG THERAPY 05/04/2019 HUY STONE MD, [...] 81 ANEMIA DUE TO ANTINEOPLASTIC CHEMOTHERAP 05/04/2019 UHY STONE MD, Ot D64. 9 ANEMIA, UNSPECIFIED [...] 05/04/2019 HUY STONE MD, Ot Z79.899 OTHER NURSING HOME (CURRENT) DRUG THERAPY 05/04/2019 HUY STONE MD, Ot Z85. 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 05/05/2019 HUY STONE MD, Ot Z79.899 OTHER NURSING HOME (CURRENT) DRUG THERAPY 05/05/2019 HUY STONE MD, [...] 05/05/2019 HUY STONE MD, Ot Z79.899 OTHER NURSING HOME (CURRENT) DRUG THERAPY 05/05/2019 HUY STONE MD, [...] IMM 05/06/2019 HUY STONE MD, Ot Z79.891 NURSING HOME (CURRENT) USE OF OPIATE ANALGE 05/06/2019 HUY STONE MD, Ot Z79.899 OTHER NURSING HOME (CURRENT) DRUG THERAPY 05/06/2019 HUY STONE MD, [...] 05/10/2019 HUY STONE MD, Ot Z79.899 OTHER NURSING HOME (CURRENT) DRUG THERAPY 05/10/2019 HUY STONE MD, [...] 05/10/2019 HUY STONE MD Ot Z79.899 OTHER NURSING HOME (CURRENT) DRUG THERAPY 05/10/2019 HUY STONE MD, [...] MALIG NEOPLM OF LOWER-INNER QUADRANT OF 05/10/2019 UHY STONE MD Ot C79. 51 SECONDARY MALIGNANT [...] 05/11/2019 HUY STONE MD Ot Z79.899 OTHER NURSING HOME (CURRENT) DRUG THERAPY 05/11/2019 HUY STONE MD, [...] 05/11/2019 HUY STONE MD, Ot Z79.899 OTHER NURSING HOME (CURRENT) DRUG THERAPY 05/11/2019 HUY STONE MD, [...] 05/11/2019 HUY STONE MD Ot Z79.899 OTHER CHANGE CONTROL SPECIALIST (CURRENT) DRUG THERAPY 05/11/2019 HUY STONE MD, [...] 05/11/2019 HUY STONE MD, Ot Z79.899 OTHER CHANGE CONTROL SPECIALIST (CURRENT) DRUG THERAPY 05/11/2019 HUY STONE MD, [...] 06/03/2019 HUY STONE MD Ot Z79.899 OTHER CHANGE CONTROL SPECIALIST (CURRENT) DRUG THERAPY 06/03/2019 HUY STONE MD [...] 06/03/2019 HUY STONE MD Ot Z79.899 OTHER NURSING HOME (CURRENT) DRUG THERAPY 06/03/2019 HUY STONE MD [...] MALIG NEOPLM OF LOWER-INNER QUADRANT OF 06/03/2019 HYU STONE MD, Ot C79. 51 SECONDARY [...] 51 SECONDARY MALIGNANT NEOPLASM OF BONE 06/03/2019 GLEN DO, NICKIE Zuleta Ot R18. 8 OTHER [...] 06/11/2019 HUY STONE MD, Ot Z79.899 OTHER NURSING HOME (CURRENT) DRUG THERAPY 06/11/2019 HUY STONE MD, [...] 06/20/2019 HUY STONE MD, Ot Z79.899 OTHER CHANGE CONTROL SPECIALIST (CURRENT) DRUG THERAPY 06/20/2019 HUY STONE MD, [...] 06/22/2019 HUY STONE MD, Ot Z79.899 OTHER NURSING HOME (CURRENT) DRUG THERAPY 06/22/2019 HUY STONE MD, [...] 06/28/2019 HUY STONE MD Ot Z79.899 OTHER CHANGE CONTROL SPECIALIST (CURRENT) DRUG THERAPY 06/28/2019 HUY STONE MD [...] 07/08/2019 HUY STONE MD Ot Z79.899 OTHER NURSING HOME (CURRENT) DRUG THERAPY 07/08/2019 HUY STONE MD [...] SECONDARY MALIGNANT NEOPLASM OF RETROPER 07/28/2019 HUY STOEN MD, Ot 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 8 OTHER ASCITES 07/28/2019 HUY STONE MD, Ot Z79.899 OTHER CHANGE CONTROL SPECIALIST (CURRENT) DRUG THERAPY 07/28/2019 HUY STONE MD, [...] Ot R18. 8 OTHER ASCITES 07/28/2019 HUY STOEN MD Ot R42 DIZZINESS AND GIDDINESS 07/28/2019 [...] 07/28/2019 HUY STONE MD, Ot Z79.899 OTHER CHANGE CONTROL SPECIALIST (CURRENT) DRUG THERAPY 07/28/2019 HUY STONE MD, [...] 07/28/2019 HUY STONE MD, Ot Z79.899 OTHER NURSING HOME (CURRENT) DRUG THERAPY 07/28/2019 HUY STONE MD, [...] 08/05/2019 HUY STONE MD, Ot Z79.899 OTHER CHANGE CONTROL SPECIALIST (CURRENT) DRUG THERAPY 08/05/2019 HUY STONE MD, [...] 08/10/2019 HUY STONE MD Ot Z79.899 OTHER CHANGE CONTROL SPECIALIST (CURRENT) DRUG THERAPY 08/10/2019 HUY STONE MD, [...] 08/12/2019 HUY STONE MD Ot Z79.899 OTHER CHANGE CONTROL SPECIALIST (CURRENT) DRUG THERAPY 08/12/2019 HUY STONE MD [...] 09/02/2019 HUY STONE MD Ot Z79.899 OTHER CHANGE CONTROL SPECIALIST (CURRENT) DRUG THERAPY 09/02/2019 HUY STONE MD [...] 09/22/2019 HUY STONE MD, Ot Z79.899 OTHER CHANGE CONTROL SPECIALIST (CURRENT) DRUG THERAPY 09/22/2019 HUY STONE MD, [...] 09/22/2019 TASHA SMITH MD Ot Z79.899 OTHER NURSING HOME (CURRENT) DRUG THERAPY 09/22/2019 TASHA SMITH MD [...] 09/23/2019 TASHA SMITH MD Ot Z79.899 OTHER NURSING HOME (CURRENT) DRUG THERAPY 09/23/2019 TASAH SMITH MD Ot Z98.890 OTHER SPECIFIED POSTPROCEDURAL [...] Ot G47. 9 SLEEP DISORDER, UNSPECIFIED 09/23/2019 TASAH SMITH MD, Ot G62. 9 POLYNEUROPATHY, UNSPECIFIED 09/23/2019 TASHA SMITH MD Ot I10 ESSENTIAL (PRIMARY) HYPERTENSION 09/23/2019 TASHA SMITH MD Ot J45.909 UNSPECIFIED ASTHMA, UNCOMPLICATED 09/23/2019 TASHA SMITH MD Ot K21. 9 GASTRO-ESOPHAGEAL REFLUX DISEASE WITHOUT 09/23/2019 TASHA SMITH MD Ot N39. 0 URINARY TRACT INFECTION, SITE NOT SPECIF 09/23/2019 TASHA SMITH MD, Ot Z79.899 OTHER CHANGE CONTROL SPECIALIST (CURRENT) DRUG THERAPY 09/23/2019 TASHA SMITH MD [...] 09/23/2019 HUY STONE MD, Ot Z79.899 OTHER CHANGE CONTROL SPECIALIST (CURRENT) DRUG THERAPY 09/23/2019 HUY STONE MD [...] MD Ot R18. 0 MALIGNANT ASCITES 09/23/2019 TAHSA SMITH MD Ot Z79.899 OTHER NURSING HOME (CURRENT) DRUG THERAPY 09/23/2019 TASHA SMITH MD [...] 09/23/2019 TASHA SMITH MD, Ot Z79.899 OTHER CHANGE CONTROL SPECIALIST (CURRENT) DRUG THERAPY 09/23/2019 TASHA SMITH MD, [...] 09/24/2019 HUY STONE MD, Ot Z79.899 OTHER CHANGE CONTROL SPECIALIST (CURRENT) DRUG THERAPY 09/24/2019 HUY STONE MD, [...] Ot R18. 8 OTHER ASCITES 09/24/2019 HUY STNOE MD Ot Z79.899 OTHER CHANGE CONTROL SPECIALIST (CURRENT) DRUG THERAPY 09/24/2019 HUY STONE MD [...] TRACT INFECTION, SITE NOT SPECIF 09/24/2019 TASHA MSITH MD Ot R18. 0 MALIGNANT ASCITES 09/24/2019 TASHA SMITH MD Ot Z79.899 OTHER NURSING HOME (CURRENT) DRUG THERAPY 09/24/2019 TASHA SMITH MD [...] 09/24/2019 TASHA SMITH MD Ot Z79.899 OTHER CHANGE CONTROL SPECIALIST (CURRENT) DRUG THERAPY 09/24/2019 TASHA SMITH MD, [...] 10/12/2019 HUY STONE MD Ot Z79.899 OTHER NURSING HOME (CURRENT) DRUG THERAPY 10/12/2019 HUY STONE MD [...] 10/12/2019 HUY STONE MD Ot Z79.899 OTHER NURSING HOME (CURRENT) DRUG THERAPY 10/12/2019 HUY STONE MD [...] 10/12/2019 HUY STONE MD, Ot Z79.899 OTHER NURSING HOME (CURRENT) DRUG THERAPY 10/12/2019 HUY STONE MD, [...] 10/14/2019 HUY STONE MD, Ot Z79.899 OTHER NURSING HOME (CURRENT) DRUG THERAPY 10/14/2019 HUY STONE MD, [...] 10/25/2019 APOLLO GROSS MD Ot Z79. 51 CHANGE CONTROL SPECIALIST (CURRENT) USE OF INHALED STERO 10/25/2019 APOLLO GROSS MD, Ot Z79.890 HORMONE REPLACEMENT THERAPY 10/25/2019 APOLLO GROSS MD Ot Z80. 8 FAMILY HISTORY OF MALIGNANT NEOPLASM OF 10/25/2019 APOLLO GROSS MD, Ot Z82. 49 FAMILY HX OF ISCHEM HEART DIS AND OTH DI 10/25/2019 APOLLO GROSS MD Ot Z85. 3 PERSONAL HISTORY OF MALIGNANT NEOPLASM O 10/25/2019 APOLLO GROSS MD Ot Z85.830 PERSONAL HISTORY OF MALIGNANT NEOPLASM O 10/25/2019 APLOLO GROSS MD, Ot Z88. 5 ALLERGY STATUS TO NARCOTIC AGENT STATUS 10/25/2019 APOLLO GROSS MD Ot Z88. 6 ALLERGY STATUS TO ANALGESIC AGENT STATUS 10/25/2019 APOLLO GROSS MD, Ot Z88. 8 ALLERGY STATUS TO OTH DRUG/MEDS/BIOL SUB 10/25/2019 APOLLO GROSS MD Ot Z96. 0 PRESENCE OF UROGENITAL IMPLANTS Procedures Code Description Performed By Per formed On [id number] DR GRANADOS OF PERITONEAL CAVITY, PERCUTANE 04/19/2019 [id number] IN SERTION OF INFUSION DEV INTO SUP VENA 04/20/2019 [id number] IN SERT OF TUNNEL VAD INTO CHEST SUBCU/FA 04/20/[id number] GRANADOS OF PERITONEAL CAVITY WITH DRAIN 06/12/2019 [id number] IN SERTION OF TUNNEL VAD INTO ABD [...] OF GROWTH Isolated NRG Bacterial blood culture [id number] NRG Bacterial blood culture - 04/28/19 20:58 [...] culture - 04/29/19 02:20 Bacterial urine culture [id number] NRG COLONY COUNT 50,000 CFU/ML NRG FTX;REPORTABLE [...] pa ashwin - 04/29/19 08:57 WRISTBAND NUMBER [id number] NRG ABO+Rh group OP NRG Blood group [...] OF GROWTH Isolated NRG Bacterial blood culture [id number] NRG FREE TEXT ENTRY 2 PRELIM RAPID [...] culture - 05/22/19 17:31 Bacterial urine culture [id number] NRG COLONY COUNT >100,000/ML NRG FTX;REPORTABLE REPORTED BY [facility] NR FREE TEXT ENTRY 2 PRELIM RAPID ID BY [facility] 05-23-19, 1 [phone] NRG FREE TEXT ENTRY 3 PRELIM RAPID ID BY [facility] 05-23-19,13 17 NRG FREE TEXT ENTRY 4 [...] pa ashwin - 06/13/19 11:15 WRISTBAND NUMBER [id number] NRG ABO+Rh group OP NRG Blood group [...] Staphylococcus aureus (MRSA) scr eening culture NEG [facility] [id number] - 06/24/19 14:55 [id number] SPECIMEN AVAILABLE [facility] COVID- - 08/02/19 09:37 [...] culture - 09/21/19 20:12 Bacterial urine culture [id number] NRG COLONY COUNT 30,000 CFU/ML NRG SUSCEPTIBILITY [...] ng/mL <0.10 Whole blood hemoglobin and hematocrit [facility] 09/22/19 06:07 Venous blood hemoglobin measurement (mass/volume) 6.9 g/dL 11.5-16.0 Blood hematocrit (volume fraction) 23 % 35-52 RED CELLS LEUKO REDUCED AS1 - 09/22/19 0 6:47 RED CELLS LEUKO REDUCED AS1 T RANSFUSED 09/22/19 1106 NR Blood type T Indirect antibody screen [facility] 09/22/19 06:47 WRISTBAND NUMBER [id number] NRG ABO+Rh group OP NRG Blood group antibody screen NEGATIVE NR G Whole blood hemoglobin and hematocrit [facility] 09/22/19 18:30 Venous blood hemoglobin measurement (mass/volume) 8.1 g/dL 11.5-16.0 Blood hematocrit (volume fraction) 26 % 35-52 Whole blood hemoglobin and hematocrit [facility] 09/23/19 05:55 Venous blood hemoglobin measurement (mass/volume) 8.2 g/dL 11.5-16.0 Blood hematocrit (volume fraction) 26 % 35-52 PROCALCITONIN (PCT) - 09/23/19 05:55 PROCALCITONIN (PCT) 0.12 ng/mL <0.10 Whole blood hemoglobin and hematocrit [facility] 09/23/19 19:08 Venous blood hemoglobin measurement (mass/volume) [...] 10/21/19 15:00 Bacterial urine culture NG NRG Complete blood count (CBC) with automate d white blood cell (WBC) differential - 10/27/19 00:04 Blood leukocytes automated count (number/volume) 10.7 10*3/uL 4.3-11.0 Blood erythrocytes automated count (number/volume) 3.37 10*6/uL 4.35-5.85 Venous blood hemoglobin measurement (mass/volume) 9.1 g/dL 11.5-16.0 Blood hematocrit (volume fraction) 29 % 35-52 Automated erythrocyte mean corpuscular volume 86 [ foz_us] 80-99 Automated erythrocyte mean corpuscular h emoglobin (mass per erythrocyte) 27 pg 25-34 Automated erythrocyte mean corpuscular h emoglobin concentration measurement (mass/volume) 31 g/dL 32-36 Automated erythrocyte distribution width ratio 18. 7 % 10.0- 14.5 Automated blood platelet count (count/volume) 505 10*3/uL 130-400 Automated blood platelet mean volume measurement 9.5 [foz_us] 7.4-10.4 Automated blood neutrophils/100 leukocytes 84 % 42-75 Automated blood lymphocytes/100 leukocytes 5 % 12-44 Blood monocytes/100 leukocytes 10 % 0-12 Automated blood eosinophils/100 leukocytes 0 % 0-10 Automated blood basophils/100 leukocytes 0 % 0-10 Blood neutrophils automated count (number/volume) 9.0 10*3 1.8-7.8 Blood lymphocytes automated count (number/volume) 0.6 10*3 1.0-4.0 Blood monocytes automated count (number/volume) 1. 1 10*3 0.0-1.0 Automated eosinophil count 0.0 10*3/uL 0 .0-0.3 Automated blood basophil count (count/volume) 0.0 10*3/uL 0.0-0.1 Comprehensive metabolic panel - 10/27/19 00:04 Serum or plasma sodium measurement (moles/volume) 131 mmol/L 135-145 Serum or plasma potassium measurement (moles/volume) 4.1 mmol/L 3.6-5.0 Serum or plasma chloride measurement (moles/volume) 96 mmol/L 98-107 Carbon dioxide 21 mmol/L 21-32 Serum or plasma anion gap determination (moles/volume) 14 mmol/L 5-14 Serum or plasma urea nitrogen measurement (mass/volume ) 15 mg/dL 7-18 Serum or plasma creatinine measurement (mass/volume) 0.97 mg/dL 0.60-1.30 Serum or plasma urea nitrogen/creatinine mass ratio 15 NRG Serum or plasma creatinine measurement w ith calculation of estimated glomerular filtration rate 59 NRG Serum or plasma glucose measurement (mass/volume) 102 mg/dL 70-105 Serum or plasma calcium measurement (mass/volume) 9.3 mg/dL 8.5-10.1 Serum or plasma total bilirubin measurement (mass/volu me) 0.3 mg/dL 0.1-1.0 Serum or plasma alkaline phosphatase miguel angel surement (enzymatic activity/volume) 216 U/L 40-136 Serum or plasma aspartate aminotransfera se measurement (enzymatic activity/volume) 43 U/L 5-34 Serum or plasma alanine aminotransferase measurement (enzymatic activity/volume) 8 U/L 0-55 Serum or plasma protein measurement (mass/volume) 6.0 g/dL 6.4-8.2 Serum or plasma albumin measurement (mass/volume) 2.6 g/dL 3.2-4.5 CALCIUM CORRECTED 10.4 mg/dL 8.5-10.1 Magnesium - 10/27/19 00:04 Magnesium 1.2 mg/dL 1.6-2.4 Serum or plasma amylase measurement (enz ymatic activity/volume) - 10/27/19 00:04 Serum or plasma amylase measurement (enzymatic activit y/volume) 428 U/L 25-125 Manual absolute plasma cell count - 10/15 05/06 00:04 Blood monocytes/100 leukocytes 11 % NRG Manual blood segmented neutrophils/100 leukocytes 60 % NRG Blood band neutrophils/100 leukocytes 2 % NRG Manual blood lymphocytes/100 leukocytes 6 % NRG Manual eosinophils/100 leukocytes in nose 1 % NRG Blood polychromasia detection by light microscopy SLIGHT NRG Blood anisocytosis detection by light microscopy S LIGHT NRG Lipase - 10/27/19 00:04 Lipase 948 U/L 8-78 Complete urinalysis with reflex to cultu re - 10/27/19 00:10 Urine color determination NITIN NRG Urine clarity determination CLOUDY NR G [...] detection in urine sediment by light microscopy PRESENT NRG Mucus detection in urine sediment by light microscopy SMALL NRG Complete urinalysis with reflex to culture YES NRG Hyaline casts detection in urine sediment by light taylor roscopy 0-2 NRG Calcium oxalate crystals detection in ur ine sediment by light microscopy FEW NRG WBC casts detection in urine sediment by light microsc opy 0-2 NRG Encounters ACCT No. Visit Date/Time Discharge Status Pt. Type Provider Facility Loc./Unit Complaint [id number] 10/18/2019 08:12:00 Document Registration [id number] 10/18/2019 08:06:10 Document Registration [id number] 08/02/2019 10:00:00 Document Registration [id number] 10/20/2019 09:08:02 10/20/2019 23:59: 59 CLS Out[facility] [id number] 08/10/2019 12:22:11 08/10/2019 23:59: 59 CLS Out[facility] [id number] 07/27/2019 13:52:27 07/27/2019 23:59: 59 CLS Outpatient [facility] [id number] 05/25/2019 10:45:15 05/25/2019 23:59: 59 CLS Out[facility] [id number] 04/15/2019 15:27:43 04/15/2019 23:59: 59 CLS Outpatient [facility] [id number] 04/15/2019 11:36:00 04/15/2019 23:59: 59 CLS Out[facility] [id number] 10/14/2019 09:36:33 Document Registration [id number] 09/03/2019 16:04:46 Document Registration [id number] 07/31/2019 09:52:53 Document Registration [id number] 07/30/2019 12:20:13 Document Registration [id number] 05/25/2019 10:37:09 Document Registration [id number] 04/15/2019 13:01:31 Document Registration [id number] 04/15/2019 13:01:30 Document Registration [id number] 04/15/2019 13:01:29 Document Registration [id number] 10/22/2019 09:45:00 23:59:59 CLS Outpatient BERTHA FRAUSTO, HUY [facility] ONC [id number] 10/21/2019 11:40:00 16:52:00 DIS Outpatient RENATO FRAUSTO, APOLLO Bansal [facility] ER NAUSEA/DEHYDRATION CONC ERNS [id number] 10/20/2019 09:31:00 23:59:59 CLS Outpatient HUY STONE MD [facility] RAD CANCER OF RIGHT BREAST [id number] 09/21/2019 21:00:00 14:50:00 DIS Inpatient LUIS FRAUSTO, TASHA Dukes [facility] 4TH SEPSIS, UTI [id number] 08/31/2019 09:23:00 00:01:00 DIS Outpatient HUY STONE MD [facility] ONC [id number] 06/17/2019 09:08:00 00:01:00 DIS Outpatient HUY STONE MD [facility] ONC [id number] 06/11/2019 20:00:00 15:15:00 DIS Inpatient LUCITA FRAUSTO, ZAIN Dukes [facility] 4TH SBO,METASTATIC CA [id number] 05/24/2019 12:58:00 17:10:00 DIS Outpatient HUY STONE MD [facility] RAD ASCITES,CA OF RT BREAST ,SECONDARY CA OF BONE [id number] 05/22/2019 15:00:00 18:18:00 DIS Emergency CADEN HARDIN MD [facility] ER FEVER 102 / NEHA MO PT [id number] 05/12/2019 13:00:00 23:59:59 CLS Outpatient NICKIE PERDOMO DO [facility] RAD CANCER OF RT BREAST,SEC ONDARY CANCER OF BONE [id number] 05/12/2019 12:10:00 23:59:59 CLS Outpatient HUY STONE MD [facility] RAD CA OF RT BREAST,SECONDA RY CA OF BONE [id number] 05/11/2019 07:45:00 23:59:59 CLS Outpatient HUY STONE MD [facility] RAD CANCER OF RT BREAST,DIANA QUIROGA [id number] 05/05/2019 17:14:00 12:30:00 DIS Inpatient HUY STONE MD [facility] 4TH N/V [id number] 04/28/2019 21:59:00 17:52:00 DIS Inpatient HUY STONE MD [facility] 4TH NAUSEA,VOMITING,BREAST CA [id number] 04/21/2019 10:57:00 22:00:00 DIS Inpatient HUY STONE MD [facility] 4TH SWB, NAUSEA, VOMITING, BREAST CANCER [id number] 04/18/2019 12:04:00 10:50:00 DIS Inpatient WILFREDO PAREDES [facility] 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, METAST ATIC BREAST CA [id number] 04/14/2019 12:38:00 23:59:59 CLS Outpatient NICKIE PERDOMO DO [facility] RAD ABD OSCITES [id number] 04/14/2019 07:01:00 23:59:59 CLS Outpatient TICO GALAN MD [facility] RAD RUQ PAIN [id number] 04/13/2019 19:02:00 22:48:00 DIS Emergency TICO GALAN MD [facility] ER ABD PAIN [id number] 04/02/2019 12:34:00 23:59:59 CLS Outpatient HUY STONE MD [facility] RAD CANCER OF RIGHT BREAST, SECONDARY CANCER OF BONE [id number] 2019 10:26:00 23:59:59 CLS Outpatient HUY STONE MD [facility] RAD CANCER OF RT BREAST [id number] 03/23/2019 14:52:00 23:59:59 CLS Outpatient HUY STONE MD [facility] RAD CANCER OF RT BREAST,CRYSTALZ TRIPPNESS [id number] 03/01/2019 14:00:00 00:01:00 DIS Outpatient HUY STONE MD [facility] ONC [id number] 12/02/2018 15:28:00 019 00:01:00 DIS Outpatient HUY TSONE MD [facility] ONC [id number] 09/02/2018 13:53:00 08:35:00 DIS Outpatient CAITLYN FRAUSTO, ERIC lucia [facility] ONC [id number] 09/01/2018 08:17:00 00:01:00 DIS Outpatient HUY STONE MD [facility] ONC [id number] 05/13/2018 13:39:00 019 00:01:00 DIS Outpatient HUY STONE MD [facility] ONC [id number] 03/02/2018 10:55:00 018 10:56:00 DIS Outpatient HUY STONE MD [facility] ONC [id number] 10/27/2019 00:23:00 Document Registration
--- NOTE | 2019-10-27 03:40 | NUR ---
SUZIE MILLER admitted to room 405-1, with an admitting diagnosis of PANVREATITIS, INTRACTABLE N/V, ABD PAIN UTI, METASTATIC BREAST CANCER, AND ILEUS VS INCOMPLETE SBO on 10/27/19 from ER via , accompanied by ER STAFF. SUZIE MILLER introduced to surroundings, call light, bed controls, phone, TV, temperature control, lights, meal times, smoking policy, visitor policy, side rail policy, bathrooms and showers. Patient Rights given to patient in the handbook. SUZIE MILLER verbalizes understanding that [facility] is not responsible for the loss or damage to any personal effects or valuables that are kept in the patients posession during their hospitalization. SUZIE MILLER verbalizes understanding of Interdisciplinary Patient Education. Patient and/or family were informed about the Rapid Response Team and its purpose.
[2019-10-27] MEDS: PROMETHAZINE INJ 25 MG/ML (PHENERGAN) AMP IV PRN (04:17)
[2019-10-27] MEDS: D5 NS W/KCL 20 MEQ/L 1,000 ML IV SCH ×3 (04:17→20:53)
[2019-10-27 05:22] VITALS: BP 122/71
[2019-10-27 06:21] LABS: BASOPHILS % (AUTO) 0 % (0-10); EOSINOPHILS % (AUTO) 0 % (0-10); HEMATOCRIT 25 % (35-52); HEMOGLOBIN 7.8 G/DL (11.5-16.0); LYMPHOCYTES # (AUTO) 0.7 X 10^3 (1.0-4.0); LYMPHOCYTES % (AUTO) 7 % (12-44); MEAN CORPUSCULAR HEMOGLOBIN 27 PG (25-34); MEAN CORPUSCULAR HGB CONC 31 G/DL (32-36); MEAN CORPUSCULAR VOLUME 87 FL (80-99); MEAN PLATELET VOLUME 9.4 FL (7.4-10.4); MONOCYTES # (AUTO) 1.1 X 10^3 (0.0-1.0); MONOCYTES % (AUTO) 12 % (0-12); NEUTROPHILS # (AUTO) 7.5 X 10^3 (1.8-7.8); NEUTROPHILS % (AUTO) 81 % (42-75); PLATELET COUNT 444 10^3/uL (130-400); RED CELL DISTRIBUTION WIDTH 18.7 % (10.0-14.5); WHITE BLOOD COUNT 9.2 10^3/uL (4.3-11.0)
--- NOTE | 2019-10-27 06:25 | ED GI ---
General Chief Complaint: Abdominal/GI Problems Stated Complaint: PANCREATITIS;INTRACTABLE N/V & ABDOMINAL PAIN Nursing Triage Note: concerned that she has a bowel obstruction. last BM was 10/25/19, harder than normal. Increase in ascites. draining 2L a day of fluid off the abdomin. Plurex drain on the right side. n/v today with pain in stomach. Sepsis Screen: No Definite Risk Source of Information: Patient, Old Records History of Present Illness Date Seen by Provider: Oct 26, 2019 Time Seen by Provider: 23:45 Initial Comments PT ARRIVES VIA POV FROM HOME PT C/O DIFFUSE ABDOMINAL PAIN FOR THE LAST 2 DAYS STATES PAIN IS WORSE IN EPIGASTRIC AREAS, RADIATES TO LUQ AND INTO BACK STATES "I'M SEVERELY BLOATED AGAIN" ALSO C/O NAUSEA AND VOMITING AND CAN'T KEEP ANYTHING DOWN--VOMITED X 1. TOOK ZOFRAN AT 1300, PHENERGAN AT 1600, ZOFRAN AT 2044 AND THEN VOMITED. TOOK EXTENDED RELEASE MORPHINE AND AN OXYCODONE THIS AM. NO DIARRHEA, HAS BEEN HAVING CONSTIPATION. LAST BM WAS YESTERDAY AND WAS NORMAL VOLUME BUT HARDER THAN NORMAL. 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 PT HAS NOT HAD CHEMO FOR 7 WEEKS. STARTED ON ARIMIDEX ON FRIDAY AND HAS AN APPOINTMENT WITH DR. STONE TOMORROW. PT HAS CHRONIC ASCITES AND HAD PLEUR-X DRAIN PLACED A FEW MONTHS AGO. PT DRAINS OFF 2 LITERS EVERY DAY. PT HAD A BOWEL OBSTRUCTION A FEW MONTHS AGO, TREATED NON-SURGICALLY AT THAT TIME. PT STATES THAT SHE FEELS THE SAME NOW SHE DID THEN WAS HERE LAST WEEK 10/21/19 AND DX WITH UTI, GIVEN DOSE OF VANCOMYCIN IV AND HAS BEEN ON ORAL VANCOMYCIN SINCE THEN, AND IS STILL ON IT. URINARY SYMPTOMS HAVE RESOLVED. ADMITTED 09/21/19 FOR SEPSIS WITH UTI LAST FRIDAY SHE HAD A URETERAL STENT PLACED HAD CT OF ABDOMEN/PELVIS ON Friday10/20/19 AND IT SHOWED NEW NODULES IN OMENTUM NO KNOWN SICK CONTACTS OR SUSPICIOUS FOODS NO KNOWN EXPOSURE TO COVID-19 AND PT HAS NO RESPIRATORY SYMPTOMS PCP: [facility] FAD[facility]FFAMN, [facility] DR. STONE Allergies and Home Medications Allergies Coded Allergies: aspirin (Verified Allergy, Unknown, 01/13/18) prochlorperazine (Verified Allergy, Unknown, 06/11/19) Tolerates Phenergan well Home Medications Acetaminophen 500 Mg Tablet, 1,000 MG PO Q8H PRN for PAIN-MILD (1-4), (Reported) Anastrozole 1 Mg Tablet, 1 MG PO BID, (Reported) Cefdinir 300 Mg Capsule, 300 MG PO BID, (Reported) FILLED 10-21-2019 #20/10 DAY SUPPLY Dextroamphetamine/Amphetamine 30 Mg Cap.er.24h, 30 MG PO DAILY, (Reported) Diphenhydramine HCl 25 Mg Capsule, 50 MG PO Q4H PRN for ALLERGY SYMPTOMS, (Reported) Fluoxetine HCl 40 Mg Capsule, 40 MG PO DAILY, (Reported) Fluticasone Propionate 16 Gm [place].susp, 1 SPRAY NSEACH BID PRN for ALLERGY SYMPTOMS, (Reported) Gabapentin 300 Mg Capsule, 300 MG PO HS, (Reported) LAST FILLED 06-19-2019 #90 Ibuprofen 200 Mg Tablet, 400 MG PO Q8H PRN for PAIN-MILD (1-4), (Reported) Levothyroxine Sodium 25 Mcg Tablet, 25 MCG PO DAILY, (Reported) Lidocaine HCl 5 Ml Jel.pf.geni, 1 APPLIC UR TID PRN for SEVERE BLADDER PAIN, (Reported) USE 1 SYRINGE VIA URETHRA INTO BLADDER NEEDED FOR SEVERE BLADDER PAIN. Morphine Sulfate 15 Mg Tablet.er, 15 MG PO Q8 -12H, (Reported) Omeprazole 40 Mg Capsule.dr, 40 MG PO BID, (Reported) Oxycodone HCl/Acetaminophen 1 Each Tablet, 1-2 EACH PO Q8H PRN for PAIN-MODERATE (5-7), (Reported) Pseudoephedrine HCl 30 Mg Tablet, 30-60 MG PO Q4H PRN for CONGESTION, (Reported) Zolpidem Tartrate 12.5 Mg Tab.mphase, 12.5 MG PO HS, (Reported) Patient Home Medication List Home Medication List Reviewed: Yes Review of Systems Review of Systems Constitutional: no symptoms reported; No chills, No diaphoresis, No dizziness, No fever Respiratory: No Symptoms Reported; Denies Cough, Denies Shortness of Air Cardiovascular: No Symptoms Reported; Denies Chest Pain Gastrointestinal: See HPI, Abdomen Distended, Abdominal Pain, Constipated, Nausea, Poor Appetite, Poor Fluid Intake, Vomiting Genitourinary: No Symptoms Reported, See HPI Musculoskeletal: see HPI, back pain Skin: no symptoms reported Psychiatric/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: No Symptoms Reported Endocrine: No Symptoms Reported Hematologic/Lymphatic: See HPI Past Fdmxvhj-Vknppo-Bazfgf Hx Past Med/Social Hx: Reviewed and Corrections made Patient Social History Alcohol Use: Denies Use Recreational Drug Use: No Smoking Status: Never a Smoker 2nd Hand Smoke Exposure: No Recent Foreign Travel: No Contact w/Someone Who Travel: No Recent Infectious Disease Expo: No Recent Hopitalizations: No Physical Abuse: No Sexual Abuse: No Mistreated: No Fear: No Immunizations Up To Date Tetanus Booster (TDap): Unknown PED Vaccines UTD: Yes Seasonal Allergies Seasonal Allergies: No Past Medical History Surgeries: Yes (LUMPECTOMY AND MASECTOMY WITH RECONSTRUCTION ON RIGHT;PLEUR-X DRAIN) Breast, Section, 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, Renal Respiratory: Yes Asthma Currently Using CPAP: No Currently Using BIPAP: No Cardiac: Yes Hypertension 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: Yes 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 Genitourinary: Yes (possible left ureteral obstruction, ureteral stents) Bladder Infection Gastrointestinal: Yes (ascites, metastatic disease to omentum and peritoneum, chronic abd pain,n/v) Abdominal Hernia, Gastroesophageal Reflux, Gall Bladder Disease Musculoskeletal: Yes (metastases to bone) Endocrine: Yes Hypothyroidsim HEENT: No Cancer: Yes (METASTATIC BREAST CANCER TO BONE, PERITONEUM, OMENTUM) Breast Did You Recieve Any Treatments: Yes What Type of Treatment Did You: Chemotherapy, Surgical Intervention Psychosocial: Yes ADD/ADHD, Sleep Difficulties, Depression Integumentary: No Blood Disorders: No Family Medical History Asthma 19 FATHER G8 BROTHER G8 SISTER Cardiovascular disease 19 MOTHER FH: skin cancer 19 FATHER G8 BROTHER Myocardial infarction G8 SISTER (X2) No Pertinent Family Hx PSH: -LEFT URETERAL STENT PLACED 05/25/19 -URETERAL STENT PLACED 10/18/19 IN [place] Physical Exam Vital Signs Vital Signs - First Documented 10/26/19 23:46 Temp 37.0 Pulse 123 Resp 22 B/P (MAP) 116/83 (94) O2 Delivery Room Air Capillary Refill : Less Than 3 Seconds Height/Weight/BMI Height: '" Weight: lbs. oz. kg; 20.86 BMI Method: General Appearance: WD/WN, no apparent distress, other (CHRONICALLY ILL APPEARING) HEENT: PERRL/EOMI; No scleral icterus (R), No scleral icterus (L) Neck: non-tender Respiratory: normal breath sounds, no respiratory distress, no accessory muscle use Cardiovascular: normal peripheral pulses, regular rate, rhythm, no murmur Gastrointestinal: abnormal bowel sounds (DECREASED), tenderness (DIFFUSE TENDERNESS, BUT IS MOST TENDER IN EPIGASTRIC AND LUQ. ABDOMEN IS VERY HARD AND MULTIPLE HARD MASSES PALPABLE IN ABDOMEN. DIFFICULT TO DETERMINE IF PT IS ACTUALLY DISTENDED, NO FLUID WAVE NOTED. PLEUR-X DRAIN IN RUQ--DRESSING CLEAN/DRY/INTACT. NO EVIDENCE OF INFECTION AT THE SITE. 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 II-XII nml as tested, no motor/sensory deficits, alert, normal mood/affect, oriented x 3 Skin: warm/dry, pallor; No rash Progress/Results/Core Measures Results/Orders Lab Results Laboratory Tests Test 10/27/19 00:04 10/27/19 00:10 10/27/19 02:50 Range/Units White Blood Count 10.7 4.3-11.0 10^3/uL Red Blood Count 3.37 L 4.35-5.85 10^6/uL Hemoglobin 9.1 L 11.5-16.0 G/DL Hematocrit 29 L 35-52 % Mean Corpuscular Volume 86 80-99 FL Mean Corpuscular Hemoglobin 27 25-34 PG Mean Corpuscular Hemoglobin Concent 31 L 32-36 G/DL Red Cell Distribution Width 18.7 H 10.0-14.5 % Platelet Count 505 H 130-400 10^3/uL Mean Platelet Volume 9.5 7.4-10.4 FL Neutrophils (%) (Auto) 84 H 42-75 % Lymphocytes (%) (Auto) 5 L 12-44 % Monocytes (%) (Auto) 10 0-12 % Eosinophils (%) (Auto) 0 0-10 % Basophils (%) (Auto) 0 0-10 % Neutrophils # (Auto) 9.0 H 1.8-7.8 X 10^3 Lymphocytes # (Auto) 0.6 L 1.0-4.0 X 10^3 Monocytes # (Auto) 1.1 H 0.0-1.0 X 10^3 Eosinophils # (Auto) 0.0 0.0-0.3 10^3/uL Basophils # (Auto) 0.0 0.0-0.1 10^3/uL Neutrophils % (Manual) 60 % Lymphocytes % (Manual) 6 % Monocytes % (Manual) 11 % Eosinophils % (Manual) 1 % Band Neutrophils 2 % Polychromasia SLIGHT Anisocytosis SLIGHT Sodium Level 131 L 135-145 MMOL/L Potassium Level 4.1 3.6-5.0 MMOL/L Chloride Level 96 L 98-107 MMOL/L Carbon Dioxide Level 21 21-32 MMOL/L Anion Gap 14 5-14 MMOL/L Blood Urea Nitrogen 15 7-18 MG/DL Creatinine 0.97 0.60-1.30 MG/DL Estimat Glomerular Filtration Rate 59 BUN/Creatinine Ratio 15 Glucose Level 102 70-105 MG/DL Calcium Level 9.3 8.5-10.1 MG/DL Corrected Calcium 10.4 H 8.5-10.1 MG/DL Magnesium Level 1.2 L 1.6-2.4 MG/DL Total Bilirubin 0.3 0.1-1.0 MG/DL Aspartate Amino Transf (AST/SGOT) 43 H 5-34 U/L Alanine Aminotransferase (ALT/SGPT) 8 0-55 U/L Alkaline Phosphatase 216 H 40-136 U/L Total Protein 6.0 L 6.4-8.2 GM/DL Albumin 2.6 L 3.2-4.5 GM/DL Amylase Level 428 H 25-125 U/L Lipase 948 H 8-78 U/L Urine Color NITIN H Urine Clarity CLOUDY Urine pH 6.0 5-9 Urine Specific [place] >=1.030 1.016-1.022 Urine Protein 2+ H NEGATIVE Urine Glucose (UA) NEGATIVE NEGATIVE Urine Ketones TRACE H NEGATIVE Urine Nitrite NEGATIVE NEGATIVE Urine Bilirubin NEGATIVE NEGATIVE Urine Urobilinogen 0.2 < = 1.0 MG/DL Urine Leukocyte Esterase NEGATIVE NEGATIVE Urine RBC (Auto) 1+ H NEGATIVE Urine RBC 0-2 /HPF Urine WBC 5-10 H /HPF Urine Squamous Epithelial Cells 0-2 /HPF Urine Crystals PRESENT H /LPF Urine Calcium Oxalate Crystals FEW H /LPF Urine Bacteria TRACE /HPF Urine Casts PRESENT /LPF Urine Hyaline Casts 0-2 H /LPF Urine White Blood Cell Casts 0-2 H /LPF Urine Mucus SMALL H /LPF Urine Culture Indicated YES Lab Scanned Report Referred Lab Report [id number] Micro Results Microbiology 10/27/19 Urine Culture - Final, Complete NO GROWTH My Orders Orders - GABRIEL BETTENCOURT Ed Iv/Invasive Line Start (10/26/19 23:44) Amylase (10/26/19 23:44) Cbc With Automated Diff (10/26/19:44) Comprehensive Metabolic Panel (10/26/19 23:44) Lipase (10/26/19 23:44) Magnesium (10/26/19 23:44) Ua Culture If Indicated (10/26/19:44) Ed Iv/Invasive Line Start (10/26/19 23:44) Lactated Ringers (Lr 1000 Ml Iv Solution (10/26/19 23:44) Ondansetron Injection (Zofran Injectio (10/27/19 00:30) Morphine Injection (Morphine Injection (10/27/19 00:30) Manual Differential (10/27/19 00:04) Urine Culture (10/27/19 00:10) Magnesium 1 Gm/100 Ml Ivpb (Magnesium Cavanaugh (10/27/19 00:45) Ct Abdomen/Pelvis W (10/27/19 00:45) Iohexol Injection (Omnipaque 350 Mg/Ml 1 (10/27/19 01:30) Ns (Ivpb) (Sodium Chloride 0.9% Ivpb Bag (10/27/19 01:30) Scopolamine Patch (Transderm-Scop Patch) (10/27/19 02:30) Promethazine Injection (Phenergan Injec (10/27/19 02:30) Ondansetron Injection (Zofran Injectio (10/27/19 02:30) Pantoprazole Injection (Protonix Injecti (10/27/19 02:30) Medications Given in ED Vital Signs/I&O 10/26/19 23:46 Temp 37.0 Pulse 123 Resp 22 B/P (MAP) 116/83 (94) O2 Delivery Room Air Blood Pressure Mean: 94 Progress Progress Note : Progress Note GIVEN IV FLUIDS, ZOFRAN, PHENERGAN, PROTONIX AND MORPHINE WITH IMPROVEMENT IN SYMPTOMS SCOPOLAMINE PATCH ALSO APPLIED. Diagnostic Imaging Comments CT ABDOMEN/PELVIS--FINDINGS CONSISTENT WITH PERITONITIS. ILEUS OR ENTERITIS FAVORED OVER OBSTRUCTION--MILDLY THICKENED FLUID FILLED LOOPS OF SMALL BOWEL WITHOUT TRANSITION POINT. NO SIGNIFICANT POCKETS OF ASCITES FLUID--OVERALL DECREASED FROM 10/20/19. MURAL THICKENING OF CECUM--PER [facility] VIA FAX AT 0210 Reviewed: Reviewed by Me Departure Communication (Admissions) 021--SPOKE WITH DR. PERDOMO, ADVISES TO ADMIT TO HOSPITALIST AND HE WILL SEE PT IN CONSULT. DOES NOT ADVISE NG TUBE OR ANTIBIOTICS AT THIS TIME. 0221--SPOKE WITH DR. WALSH, HOSPITALIST, ACCEPTS PT FOR ADMIT. 0240--SPOKE WITH PT'S AND DISCUSSED TEST RESULTS, PT'S CONDITION AND NEED FOR ADMIT. Impression Primary Impression: Pancreatitis Additional Impressions: Intractable abdominal pain Intractable nausea and vomiting Metastatic breast cancer METASTATIC DISEASE TO PERITONEUM AND OMENTUM Ascites PLEURX DRAIN IN PLACE UTI--IMPOVING Chronic anemia ILEUS VS INCOMPLETE SBO Disposition: ADMITTED INPATIENT Condition: Improved Admissions Decision to Admit Reason: Admit from ER (General) Decision to Admit/Date: Oct 19, 2019 Time/Decision to Admit Time: 02:10 Departure-Patient Inst. Referrals: FADY HUFFMAN DO (PCP) Primary Care Physician GABRIEL BETTENCOURT DO Oct 27, 2019 06:25
[2019-10-27 06:36] LABS: ALANINE AMINOTRANSFERASE 7 U/L (0-55); ALBUMIN 2.3 GM/DL (3.2-4.5); ALKALINE PHOSPHATASE 182 U/L (40-136); AMYLASE 238 U/L (25-125); BILIRUBIN,TOTAL 0.2 MG/DL (0.1-1.0); BUN/CREATININE RATIO 17; CALCIUM 8.7 MG/DL (8.5-10.1); CARBON DIOXIDE 22 MMOL/L (21-32); CHLORIDE 97 MMOL/L (98-107); CREATININE SERUM 0.81 MG/DL (0.60-1.30); GFR ESTIMATED > 60; GLUCOSE 124 MG/DL (70-105); MAGNESIUM 1.9 MG/DL (1.6-2.4); POTASSIUM 4.6 MMOL/L (3.6-5.0); SODIUM 129 MMOL/L (135-145); TOTAL PROTEIN 5.4 GM/DL (6.4-8.2)
[2019-10-27 07:59] VITALS: BP 115/63
--- NOTE | 2019-10-27 08:00 | Diagnostic Imaging Report ---
PROCEDURE: CT abdomen and pelvis with contrast. TECHNIQUE: Multiple contiguous axial images were obtained through the abdomen and pelvis after administration of intravenous contrast. Auto Exposure Controls were utilized during the CT exam to meet ALARA standards for radiation dose reduction. DATE: October 27, 2019. COMPARISON: CT chest abdomen pelvis October 20, 2019. INDICATION: 59-year-old female, abdominal pain, nausea, vomiting. FINDINGS: There is a 6 mm benign calcified left lower lobe granuloma on axial image 3. The additional visualized portions of the lung bases are grossly clear. The heart is not enlarged. There is no identified pericardial effusion. The liver is unremarkable in size and contour. There are low-attenuation lesions in the right lobe of the liver on axial image 16 measuring 7 mm in size which are too small to characterize. There is also an additional adjacent 6 mm low-attenuation lesion in the right lobe of liver on axial image 15. There are several additional subcentimeter liver lesions present including in the left lobe of the liver. There is a lobulated low-attenuation lesion in the dome of the liver measuring up to 2.6 cm in size with internal attenuation value diagnostic for a benign hepatic cyst. There is an additional adjacent 10 mm benign hepatic cyst on axial image 9. The main, right, and left portal veins are patent. The gallbladder is unremarkable. There is no intrahepatic or extrahepatic bile duct dilation. The main pancreatic duct is not abnormally dilated. The pancreatic parenchyma is unremarkable in appearance. The spleen is not enlarged. The adrenal glands are unremarkable. There is moderate atrophy of the left kidney. There is a left-sided ureteral stent. The distal aspect of the left ureteral stent is not definitely within the urinary bladder perhaps best illustrated on axial delayed postcontrast series 3 image 81. Urinary bladder is underdistended and not well evaluated. There is extensive abnormal small bowel wall thickening with multiple areas of abnormal wall thickening of the colon. There is abnormal wall thickening of the stomach. There are dilated segments of small bowel measuring up to approximately 3.3 cm in diameter. There is an intra-abdominal drainage catheter. There is a moderate volume ascites. The ascitic fluid has a somewhat thick and peripheral margin. There is no identified abnormally enlarged lymph node in the abdomen or pelvis which specifically meets CT size criteria for adenopathy. There are numerous sclerotic and lucent lesions of bone throughout the entire field of view of imaging. This most likely relates to extensive multifocal bone metastasis. There is no identified pathologic fracture. IMPRESSION: CT ABDOMEN AND PELVIS. 1. Extensive abnormal wall thickening of small bowel with multifocal large bowel wall thickening and wall thickening of the stomach. This is also present on comparison recent exam of October 20, 2019. This is nonspecific but can be seen with nonspecific enteritis, gastritis, and colitis. Infiltrative processes of bowel are also in the differential diagnosis. 2. Moderate volume ascitic fluid with thick peripheral margins. This suggests a complicated ascites and potentially peritoneal carcinomatosis or peritonitis. 3. Extensive bone metastasis again noted. 4. The left ureteral stent is not definitely in the urinary bladder at its distal aspect. The urinary bladder is collapsed and not well evaluated. Dictated by: Dictated on workstation # [id number]
--- NOTE | 2019-10-27 08:30 | NUR ---
spoke with Carey regarding patient's Pleurx Drain and how often he would like it drained. Patient stated she attempts to drain it 1-2 times/day at home to prevent bowel blockage which she had in the past. Patient stated she doesn't typically fill "full" or "in pain" at times of drainage. Carey stated to drain abdomen when patient is symptomatic
[2019-10-27] MEDS: PANTOPRAZOLE 40 MG (PROTONIX) VIAL IV SCH (08:32)
--- NOTE | 2019-10-27 09:55 | Consultation - Surgery ---
ALANSHALINI MED STUDENT 10/27/19 0955: History of Present Illness History of Present Illness Patient Consulted On(jose j/time) 10/27/19 09:50 Date Seen by Provider: Oct 27, 2019 Time Seen by Provider: 07:50 History of Present Illness Consult requested by Dr. Burch for sbo Pt appeared in no acute distress with mild lower abdominal pain that began last night after a meal. Pt has chronic ascites and associated with her metastatic breast cancer which has been worsening. Claims her last BM was 2 days ago. Last chemo was 6 weeks ago. Abdominal pain has reduced since last night and she is feeling a little better today. Denies fever, chills. Allergies and Home Medications Allergies Coded Allergies: aspirin (Verified Allergy, Unknown, 01/13/18) prochlorperazine (Verified Allergy, Unknown, 06/11/19) Tolerates Phenergan well Home Medications Acetaminophen 500 Mg Tablet, 1,000 MG PO Q8H PRN for PAIN-MILD (1-4), (Reported) Anastrozole 1 Mg Tablet, 1 MG PO BID, (Reported) Cefdinir 300 Mg Capsule, 300 MG PO BID, (Reported) FILLED 10-21-2019 #20/10 DAY SUPPLY Dextroamphetamine/Amphetamine 30 Mg Cap.er.24h, 30 MG PO DAILY, (Reported) Diphenhydramine HCl 25 Mg Capsule, 50 MG PO Q4H PRN for ALLERGY SYMPTOMS, (Reported) Fluoxetine HCl 40 Mg Capsule, 40 MG PO DAILY, (Reported) Fluticasone Propionate 16 Gm Arthur.susp, 1 SPRAY NSEACH BID PRN for ALLERGY SYMPTOMS, (Reported) Gabapentin 300 Mg Capsule, 300 MG PO HS, (Reported) LAST FILLED 06-19-2019 #90 Ibuprofen 200 Mg Tablet, 400 MG PO Q8H PRN for PAIN-MILD (1-4), (Reported) Levothyroxine Sodium 25 Mcg Tablet, 25 MCG PO DAILY, (Reported) Lidocaine HCl 5 Ml Jel.pf.geni, 1 APPLIC UR TID PRN for SEVERE BLADDER PAIN, (Reported) USE 1 SYRINGE VIA URETHRA INTO BLADDER NEEDED FOR SEVERE BLADDER PAIN. Morphine Sulfate 15 Mg Tablet.er, 15 MG PO Q8 -12H, (Reported) Omeprazole 40 Mg Capsule.dr, 40 MG PO BID, (Reported) Oxycodone HCl/Acetaminophen 1 Each Tablet, 1-2 EACH PO Q8H PRN for PAIN-MODERATE (5-7), (Reported) Pseudoephedrine HCl 30 Mg Tablet, 30-60 MG PO Q4H PRN for CONGESTION, (Reported) Zolpidem Tartrate 12.5 Mg Tab.mphase, 12.5 MG PO HS, (Reported) Past Atpbhqn-Qangiq-Khqxns Hx Patient Social History Alcohol Use: Denies Use Recreational Drug Use: No Smoking Status: Never a Smoker 2nd Hand Smoke Exposure: No Recent Foreign Travel: No Contact w/Someone Who Travel: No Recent Infectious Disease Expo: No Recent Hopitalizations: No Immunizations Up To Date Tetanus Booster (TDap): Unknown PED Vaccines UTD: Yes Seasonal Allergies Seasonal Allergies: No Surgeries History of Surgeries: Yes (LUMPECTOMY AND MASECTOMY WITH RECONSTRUCTION ON RIGHT;PLEUR-X DRAIN) Surgeries: Breast, Section, 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, Renal Respiratory History of Respiratory Disorde: Yes Respiratory Disorders: Asthma Cardiovascular History of Cardiac Disorders: Yes Cardiac Disorders: Hypertension 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 History of 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 Disord: Yes 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 Disorders: Neuropathy 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 Genitourinary History of Genitourinary Disor: Yes (possible left ureteral obstruction, ureteral stents) Genitourinary Disorders: Bladder Infection Gastrointestinal History of Gastrointestinal Di: Yes (ascites, metastatic disease to omentum and peritoneum, chronic abd pain,n/v) Gastrointestinal Disorders: Abdominal Hernia, Gastroesophageal Reflux, Gall Bladder Disease Musculoskeletal History of Musculoskeletal Dis: Yes (metastases to bone) Endocrine History of Endocrine Disorders: Yes Endocrine Disorders: Hypothyroidsim HEENT History of HEENT Disorders: No Cancer History of Cancer: Yes (METASTATIC BREAST CANCER TO BONE, PERITONEUM, OMENTUM) Cancer: Breast Psychosocial History of Psychiatric Problem: Yes Behavioral Health Disorders: ADD/ADHD, Sleep Difficulties, Depression Integumentary History of Skin or Integumenta: No Blood Transfusions History of Blood Disorders: No Family Medical History Significant Family History: No Pertinent Family Hx Family Medial History: Asthma 19 FATHER G8 BROTHER G8 SISTER Cardiovascular disease 19 MOTHER FH: skin cancer 19 FATHER G8 BROTHER Myocardial infarction G8 SISTER (X2) Review of Systems-General Constitutional: No chills, No diaphoresis EENTM: No blurred vision, No double vision Respiratory: No cough, No dyspnea on exertion Cardiovascular: No chest pain, No edema Gastrointestinal: abdominal pain; No hematemesis, No melena Genitourinary: No dysuria, No frequency Musculoskeletal: back pain (related to cancer metastasis ); No joint pain Skin: No change in color, No change in hair/nails Psychiatric/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: Denies Anxiety, Denies Depressed, Denies Headache, Denies Numbness Physical Exam-General Problems Physical Exam Vital Signs Vital Signs - First Documented 10/26/19 10/27/19 23:46 03:10 Temp 37.0 Pulse 123 Resp 22 B/P (MAP) 116/83 (94) Pulse Ox 95 O2 Delivery Room Air Capillary Refill : Less Than 3 Seconds General Appearance: WD/WN, no apparent distress Eyes: Bilateral Eye Normal Inspection, Bilateral Eye PERRL HEENT: PERRL/EOMI, normal ENT inspection Neck: non-tender, supple Respiratory: normal breath sounds, no respiratory distress, no accessory muscle use Cardiovascular: normal peripheral pulses, regular rate, rhythm, no murmur Gastrointestinal: soft; No guarding, No rebound; tenderness Back: normal inspection, no CVA tenderness Extremities: normal range of motion, non-tender, normal inspection Neurologic/Psychiatric: alert, normal mood/affect, oriented x 3 Skin: normal color, warm/dry Lymphatic: no adenopathy Data Review Labs Laboratory Tests 10/27/19 00:04: White Blood Count 10.7, Red Blood Count 3.37L, Hemoglobin 9.1L, Hematocrit 29L, Mean Corpuscular Volume 86, Mean Corpuscular Hemoglobin 27, Mean Corpuscular Hemoglobin Concent 31L, Red Cell Distribution Width 18.7H, Platelet Count 505H, Mean Platelet Volume 9.5, Neutrophils (%) (Auto) 84H, Lymphocytes (%) (Auto) 5L, Monocytes (%) (Auto) 10, Eosinophils (%) (Auto) 0, Basophils (%) (Auto) 0, Neutrophils # (Auto) 9.0H, Lymphocytes # (Auto) 0.6L, Monocytes # (Auto) 1.1H, Eosinophils # (Auto) 0.0, Basophils # (Auto) 0.0, Neutrophils % (Manual) 60, Lymphocytes % (Manual) 6, Monocytes % (Manual) 11, Eosinophils % (Manual) 1, Band Neutrophils 2, Polychromasia SLIGHT, Anisocytosis SLIGHT, Sodium Level 131L , Potassium Level 4.1, Chloride Level 96L, Carbon Dioxide Level 21, Anion Gap 14, Blood Urea Nitrogen 15, Creatinine 0.97, Estimat Glomerular Filtration Rate 59, BUN/Creatinine Ratio 15, Glucose Level 102, Calcium Level 9.3, Corrected Calcium 10.4H, Magnesium Level 1.2L, Total Bilirubin 0.3, Aspartate Amino Transf (AST/SGOT) 43H, Alanine Aminotransferase (ALT/SGPT) 8, Alkaline Phosphatase 216H , Total Protein 6.0L, Albumin 2.6L, Amylase Level 428H, Lipase 948H 10/27/19 00:10: Urine Color AMBERH, Urine Clarity CLOUDY, Urine pH 6.0, Urine Specific [place] >=1.030, Urine Protein 2+H, Urine Glucose (UA) NEGATIVE, Urine Ketones TRACEH, Urine Nitrite NEGATIVE, Urine Bilirubin NEGATIVE, Urine Urobilinogen 0.2, Urine Leukocyte Esterase NEGATIVE, Urine RBC (Auto) 1+H, Urine RBC 0-2, Urine WBC 5- 10H, Urine Squamous Epithelial Cells 0-2, Urine Crystals PRESENTH, Urine Calcium Oxalate Crystals FEWH, Urine Bacteria TRACE, Urine Casts PRESENT, Urine Hyaline Casts 0-2H, Urine White Blood Cell Casts 0-2H, Urine Mucus SMALLH, Urine Culture Indicated YES 10/27/19 06:00: White Blood Count 9.2, Red Blood Count 2.89L, Hemoglobin 7.8L, Hematocrit 25L, Mean Corpuscular Volume 87, Mean Corpuscular Hemoglobin 27, Mean Corpuscular Hemoglobin Concent 31L, Red Cell Distribution Width 18.7H, Platelet Count 444H, Mean Platelet Volume 9.4, Neutrophils (%) (Auto) 81H, Lymphocytes (%) (Auto) 7L, Monocytes (%) (Auto) 12, Eosinophils (%) (Auto) 0, Basophils (%) (Auto) 0, Neutrophils # (Auto) 7.5, Lymphocytes # (Auto) 0.7L, Monocytes # (Auto) 1.1H, Eosinophils # (Auto) 0.0, Basophils # (Auto) 0.0, Sodium Level 129L, Potassium Level 4.6, Chloride Level 97L, Carbon Dioxide Level 22, Anion Gap 10, Blood Urea Nitrogen 14, Creatinine 0.81, Estimat Glomerular Filtration Rate > 60, BUN/Creatinine Ratio 17, Glucose Level 124H, Calcium Level 8.7, Corrected Calcium 10.1, Magnesium Level 1.9, Total Bilirubin 0.2, Aspartate Amino Transf (AST/SGOT) 34, Alanine Aminotransferase (ALT/SGPT) 7, Alkaline Phosphatase 182H, Total Protein 5.4L, Albumin 2.3L, Amylase Level 238H Assessment/Plan Assessment/Plan Assessment/Plan sbo ascites cancer metastasis await CT results to evaluate for sbo monitor ascites and treat symptoms as they arise npo Clinical Quality Measures DVT/VTE Risk/Contraindication: Risk Factor Score Per Nursin RFS Level Per Nursing on Admit: 2=Moderate NICKIE PATINO DO 10/27/192128: History of Present Illness History of Present Illness History of Present Illness Consult requested for abdominal pain pancreatitis. Patient is a 59 year old female with metastatic breast cancer with peritoneal carcinomatosis. Patient last week been treated for UTI. Worsening abdominal pain last night. Epigastric area but also some throughout abdomen. Moderated to severe pain at times. No radiation of pain that she can think of, but maybe to her back. Last bm 2 days ago. having nausea. Denies fever sweats chills shortness of breath or chest pain. Patient with ct scan showin. Extensive abnormal wall thickening of small bowel with multifocal large bowel wall thickening and wall thickening of the stomach. This is also present on comparison recent exam of October 20, 2019. This is nonspecific but can be seen with nonspecific enteritis, gastritis, and colitis. Infiltrative processes of bowel are also in the differential diagnosis. 2. Moderate volume ascitic fluid with thick peripheral margins. This suggests a complicated ascites and potentially peritoneal carcinomatosis or peritonitis. 3. Extensive bone metastasis again noted. 4. The left ureteral stent is not definitely in the urinary bladder at its distal aspect. The urinary bladder is collapsed and not well evaluated. Allergies and Home Medications Allergies Coded Allergies: aspirin (Verified Allergy, Unknown, 01/13/18) prochlorperazine (Verified Allergy, Unknown, 06/11/19) Tolerates Phenergan well Home Medications Acetaminophen 500 Mg Tablet, 1,000 MG PO Q8H PRN for PAIN-MILD (1-4), (Reported) Anastrozole 1 Mg Tablet, 1 MG PO BID, (Reported) Cefdinir 300 Mg Capsule, 300 MG PO BID, (Reported) FILLED 10-21-2019 #20/10 DAY SUPPLY Dextroamphetamine/Amphetamine 30 Mg Cap.er.24h, 30 MG PO DAILY, (Reported) Diphenhydramine HCl 25 Mg Capsule, 50 MG PO Q4H PRN for ALLERGY SYMPTOMS, (Reported) Fluoxetine HCl 40 Mg Capsule, 40 MG PO DAILY, (Reported) Fluticasone Propionate 16 Gm Arthur.susp, 1 SPRAY NSEACH BID PRN for ALLERGY SYMPTOMS, (Reported) Gabapentin 300 Mg Capsule, 300 MG PO HS, (Reported) LAST FILLED 06-19-2019 #90 Ibuprofen 200 Mg Tablet, 400 MG PO Q8H PRN for PAIN-MILD (1-4), (Reported) Levothyroxine Sodium 25 Mcg Tablet, 25 MCG PO DAILY, (Reported) Lidocaine HCl 5 Ml Jel.pf.geni, 1 APPLIC UR TID PRN for SEVERE BLADDER PAIN, (Reported) USE 1 SYRINGE VIA URETHRA INTO BLADDER NEEDED FOR SEVERE BLADDER PAIN. Morphine Sulfate 15 Mg Tablet.er, 15 MG PO Q8 -12H, (Reported) Omeprazole 40 Mg Capsule.dr, 40 MG PO BID, (Reported) Oxycodone HCl/Acetaminophen 1 Each Tablet, 1-2 EACH PO Q8H PRN for PAIN-MODERATE (5-7), (Reported) Pseudoephedrine HCl 30 Mg Tablet, 30-60 MG PO Q4H PRN for CONGESTION, (Reported) Zolpidem Tartrate 12.5 Mg Tab.mphase, 12.5 MG PO HS, (Reported) Patient Home Medication List Home Medication List Reviewed: Yes Past Lckjjqt-Bawfwj-Dqzbyj Hx Reviewed Nursing Assessment Reviewed/Agree w Nursing PMH: Yes Family Medical History Significant Family History: No Pertinent Family Hx Family Medial History: Asthma 19 FATHER G8 BROTHER G8 SISTER Cardiovascular disease 19 MOTHER FH: skin cancer 19 FATHER G8 BROTHER Myocardial infarction G8 SISTER (X2) Review of Systems-General Constitutional: No chills, No diaphoresis EENTM: No blurred vision, No double vision Respiratory: No cough, No dyspnea on exertion Cardiovascular: No chest pain, No edema Gastrointestinal: abdominal pain; No hematemesis, No melena; nausea Genitourinary: No dysuria, No frequency Musculoskeletal: back pain (related to cancer metastasis ); No joint pain Skin: No change in color, No change in hair/nails Psychiatric/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: Denies Anxiety, Denies Depressed, Denies Headache, Denies Numbness All Other Systems Reviewed Negative Unless Noted: Yes (Negative excepted noted.) Physical Exam-General Problems Physical Exam General Appearance: WD/WN HEENT: PERRL/EOMI, normal ENT inspection Neck: non-tender, supple Respiratory: chest non-tender, no respiratory distress, no accessory muscle use Cardiovascular: normal peripheral pulses, regular rate, rhythm Gastrointestinal: soft, distended (minimal); No guarding, No rebound; tenderness (epigastric area) Back: normal inspection, no CVA tenderness Extremities: normal range of motion, non-tender Neurologic/Psychiatric: no motor/sensory deficits, alert, normal mood/affect, oriented x 3 Skin: normal color, warm/dry Lymphatic: no adenopathy Assessment/Plan Assessment/Plan Assessment/Plan epigastric abdominal pain pancreatitis metastatic breast cancer conservative measures NPO Iv hydration Has pleur-x catheter to drain ascites prn Supervisory-Addendum Brief Verification & Attestation Participated in pt care: history, MDM, physical Personally performed: exam, history, MDM, supervision of care Care discussed with: Medical Student Procedures: n/a Results interpretation: Verified all documentation Verification and Attestation of Medical Student E/M Service A medical student performed and documented this service in my presence. I reviewed and verified all information documented by the medical student and made modifications to such information, when appropriate. I personally performed the physical exam and medical decision making. Nickie Patino, Oct 27, 2019,21:33 SHALINI PHILLIPS MED STUDENT Oct 27, 2019 09:55 NICKIE PATINO DO Oct 27, 2019 21:29
--- NOTE | 2019-10-27 10:32 | History & Physical-Hospitalist ---
History of Present Illness HPI/Chief Complaint Pt is a 59yoCF with a PMH of metastatic breast cancer to spine, pelvis, and omentum who presented to the ER due to abdominal pain and vomiting. She had her ureteral stent replaced 1 week ago and then was diagnosed with a UTI following that. She was treated with oral antibiotics (cefidnir) but has not done well since then. Two days ago she developed abdominal pain and nausea. She has had poor oral intake but was able to eat a sandwich yesterday. This worsened her pain and then she vomited it up. Her reports she has also had worsening ascites and they have been draining over 2L of fluid from her abdomen, up from 1L. She states she is very nauseated and the Phenergan makes her sleepy. She was also supposed to start a new chemotherapy with Dr Gregory because her last chemo was not longer working. She was found to have pancreatitis and was admitted for symptomatic management. Source: patient Date Seen 10/27/19 Time Seen by a Provider: 10:20 Attending Physician Beverly Burch MD PCP Rodrigue Orellana DO Referring Physician Date of Admission Oct 27, 2019 at 02:50 Home Medications & Allergies Home Medications Reviewed patient Home Medication Reconciliation performed by pharmacy medication reconciliations geoscience laboratory technician and/or nursing. Patients Allergies have been reviewed. Allergies Allergies Coded Allergies aspirin (Verified Allergy, Unknown, 01/13/18) prochlorperazine (Verified Allergy, Unknown, 06/11/19) Tolerates Phenergan well Past Ypkalzk-Pinfie-Bvwocl Hx Past Med/Social Hx: Reviewed and Corrections made Patient Social History Marrital Status: Alcohol Use: Denies Use Recreational Drug Use: No Smoking Status: Never a Smoker 2nd Hand Smoke Exposure: No Recent Foreign Travel: No Contact w/other who traveled: No Recent Hopitalizations: No Recent Infectious Disease Expo: No Immunizations Up To Date Tetanus Booster (TDap): Unknown Pediatric: Yes Seasonal Allergies Seasonal Allergies: No Past Medical History Surgeries: Breast, Section, 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, Renal Currently Using CPAP: No Currently Using BIPAP: No Cardiac: Hypertension 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: Neuropathy : No 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 Genitourinary: Bladder Infection Gastrointestinal: Abdominal Hernia, Gastroesophageal Reflux, Gall Bladder Disease Endocrine: Hypothyroidsim Cancer: Breast Did You Recieve Any Treatments: Yes What Type of Treatment Did You: Chemotherapy, Surgical Intervention Psychosocial: ADD/ADHD, Sleep Difficulties, Depression History of Blood Disorders: No Family History Reviewed Nursing Family Hx Asthma 19 FATHER G8 BROTHER G8 SISTER Cardiovascular disease 19 MOTHER FH: skin cancer 19 FATHER G8 BROTHER Myocardial infarction G8 SISTER (X2) No Pertinent Family Hx PSH: -LEFT URETERAL STENT PLACED 05/25/19 -URETERAL STENT PLACED 10/18/19 IN [place] Review of Systems Constitutional: No chills, No fever; malaise EENTM: no symptoms reported Respiratory: no symptoms reported Cardiovascular: no symptoms reported Gastrointestinal: abdominal pain, constipation, nausea, vomiting Genitourinary: see HPI Musculoskeletal: no symptoms reported Skin: no symptoms reported Psychiatric/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: No Symptoms Reported Physical Exam Physical Exam Vital Signs Vital Signs - First Documented 10/26/19 10/27/19 23:46 03:10 Temp 37.0 Pulse 123 Resp 22 B/P (MAP) 116/83 (94) Pulse Ox 95 O2 Delivery Room Air Capillary Refill : Less Than 3 Seconds Height, Weight, BMI Height: '" Weight: lbs. oz. kg; 20.86 BMI Method: General Appearance: No Apparent Distress, Chronically ill, Thin Respiratory: Lungs Clear, No Respiratory Distress Cardiovascular: Regular Rate, Rhythm, No Murmur Gastrointestinal: Abnormal Bowel Sounds (quiet), Distended; No Guarding, No Rebound; Tenderness (diffuse), Other (abdomen hard to touch due to omental mets) Extremity: No Calf Tenderness, No Pedal Edema Neurologic/Psychiatric: Alert, Oriented x3, Normal Mood/Affect Results Results/Procedures Labs Laboratory Tests 10/27/19 00:04 10/27/19 06:00 10/28/19 06:22 Patient resulted labs reviewed. Imaging: Reviewed Imaging Report Imaging [facility], [place] NAME: SUZIE MILLER Librato REC#: [id number] PT STATUS: ADM IN : 1960 PHYSICIAN: GABRIEL BETTENCOURT DO ADMIT DATE: 10/27/19 Signed Date of Exam:10/27/19 CT ABDOMEN/PELVIS W PROCEDURE: CT abdomen and pelvis with contrast. TECHNIQUE: Multiple contiguous axial images were obtained through the abdomen and pelvis after administration of intravenous contrast. Auto Exposure Controls were utilized during the CT exam to meet ALARA standards for radiation dose reduction. DATE: October 27, 2019. COMPARISON: CT chest abdomen pelvis October 20, 2019. INDICATION: 59-year-old female, abdominal pain, nausea, vomiting. FINDINGS: There is a 6 mm benign calcified left lower lobe granuloma on axial image 3. The additional visualized portions of the lung bases are grossly clear. The heart is not enlarged. There is no identified pericardial effusion. The liver is unremarkable in size and contour. There are low-attenuation lesions in the right lobe of the liver on axial image 16 measuring 7 mm in size which are too small to characterize. There is also an additional adjacent 6 mm low-attenuation lesion in the right lobe of liver on axial image 15. There are several additional subcentimeter liver lesions present including in the left lobe of the liver. There is a lobulated low-attenuation lesion in the dome of the liver measuring up to 2.6 cm in size with internal attenuation value diagnostic for a benign hepatic cyst. There is an additional adjacent 10 mm benign hepatic cyst on axial image 9. The main, right, and left portal veins are patent. The gallbladder is unremarkable. There is no intrahepatic or extrahepatic bile duct dilation. The main pancreatic duct is not abnormally dilated. The pancreatic parenchyma is unremarkable in appearance. The spleen is not enlarged. The adrenal glands are unremarkable. There is moderate atrophy of the left kidney. There is a left-sided ureteral stent. The distal aspect of the left ureteral stent is not definitely within the urinary bladder perhaps best illustrated on axial delayed postcontrast series 3 image 81. Urinary bladder is underdistended and not well evaluated. There is extensive abnormal small bowel wall thickening with multiple areas of abnormal wall thickening of the colon. There is abnormal wall thickening of the stomach. There are dilated segments of small bowel measuring up to approximately 3.3 cm in diameter. There is an intra-abdominal drainage catheter. There is a moderate volume ascites. The ascitic fluid has a somewhat thick and peripheral margin. There is no identified abnormally enlarged lymph node in the abdomen or pelvis which specifically meets CT size criteria for adenopathy. There are numerous sclerotic and lucent lesions of bone throughout the entire field of view of imaging. This most likely relates to extensive multifocal bone metastasis. There is no identified pathologic fracture. IMPRESSION: CT ABDOMEN AND PELVIS. 1. Extensive abnormal wall thickening of small bowel with multifocal large bowel wall thickening and wall thickening of the stomach. This is also present on comparison recent exam of October 20, 2019. This is nonspecific but can be seen with nonspecific enteritis, gastritis, and colitis. Infiltrative processes of bowel are also in the differential diagnosis. 2. Moderate volume ascitic fluid with thick peripheral margins. This suggests a complicated ascites and potentially peritoneal carcinomatosis or peritonitis. 3. Extensive bone metastasis again noted. 4. The left ureteral stent is not definitely in the urinary bladder at its distal aspect. The urinary bladder is collapsed and not well evaluated. Dictated by: Dictated on workstation # [id number] Dict: 10/27/19724 Trans: 10/27/[address] [facility] [id number] Interpreted by: JAMES JOHNSON MD Electronically signed by: JAMES JOHNSON MD 10/27/19912 Assessment/Plan Admission Diagnosis Pancreatitis Admission Status: Inpatient Order (span 2 midnights) Reason for Inpatient Admission: see below Assessment and Plan Pancreatitis Metastatic breast cancer Large volume ascites NPO IVF Bowel rest Continue morphine and antimetics for symptom control Concern this is due to cancer? Hyponatremia, acute on chronic Likely due to dehydration and worsening ascites IVF Recent UTI Ureteral stent Start on Rocephin to complete antibiotic course Urine culture pending Anemia due to chronic disease Appears to be around baseline trend Hypothyroidism Continue synthroid when able to take PO Code Status: Discussedmy concerns about worsening metastatic cancer with patient. She requests to remain a full code at this time and would like to talk with Dr Gregory about further treatments options before making any changes. Clinical Quality Measures DVT/VTE Risk/Contraindication: Risk Factor Score Per Nursin RFS Level Per Nursing on Admit: 2=Moderate ZAIN LANDRUM MD Oct 27, 2019 10:32
[2019-10-27] MEDS: morphine INJ 4 MG/ML 1 ML (VIAL/SYRINGE) IV PRN ×3 (11:15→21:01)
[2019-10-27] MEDS ORDERED: CEFD300C3 PO (11:20)
[2019-10-27] MEDS ORDERED: MORP-68 PO (11:20)
[2019-10-27] MEDS ORDERED: ANAS1TAB50 PO (11:20)
[2019-10-27] MEDS: cefTRIAXone FOR IV USE 1,000 MG in WATER (STERILE) FOR INJECTION 10 ML IV SCH (11:23)
--- NOTE | 2019-10-27 11:26 | NUR ---
SPOKE WITH THE PT AND HER AND WENT THRU THE EXT MED HISTORY ANASTROZOLE 1MG- DIRECTIONS ON THE EXT MED HISTORY SHOW 1 TAB DAILY HOWEVER PT WAS TOLD TO INCREASE HER THE DOSE PER DR. STONE AND PT IS NOW TAKING 1 TAB BID OMEPRAZOLE 40MG- DIRECTIONS ON THE EXT MED HISTORY SHOW 1 TAB DAILY HOWEVER PT IS NOW TAKING 1 TAB BID GABAPENTIN 300MG WAS LAST FILLED 06-19-2019 #90/90DS- I DID DOCUMENT THE PAST DUE FILL IN THE MED REC MORPHINE ER 15MG- DIRECTIONS SHOW 1 TAB Q 8H- PT'S SAYS SHE CAN USUALLY STRETCH IT OUT TO Q 12 H- ON THE MED REC I LISTED THE FREQUENCY Q8-12 H OTC MEDS: TYLENOL IBUPROFEN FLONASE BENADRYL SUDAFED
[2019-10-27 12:00] VITALS: BP 108/64
--- NOTE | 2019-10-27 14:07 | NUR ---
spoke with [facility] at this time regarding Dr STONE's consult per family. [facility] stated BERTHA was not consulted in the computer and nobody called to confirm with the department. [facility] RN was told by this RN that the consult via computer was placed this morning at [address] Burch and is in the computer she was also informed that [facility] was called @ 0732 [address] police shift commander RN. Dr STONE and [facility] re-consulted at this time
[2019-10-27] MEDS ORDERED: ACETAMINOPHEN 650 MG SUPP (TYLENOL) PR PRN (14:45)
[2019-10-27 15:30] VITALS: BP 109/60
--- NOTE | 2019-10-27 17:24 | Oncology Consultation ---
Visit Information Visit Information Date of Admission Oct 27, 2019 at 02:50 Attending Physician Beverly Burch MD Admitting Physician Rodrigue Orellana DO Chief Complaint Nausea, vomiting and fever, elevated lipase and amylase. breast cancer, peritoneal carcinomatosis.. Interval History Ms. 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 She presented to ER last night with persistent nausea and vomiting and low grade fever despite she has been on the oral antibiotics for UTI recently. Lab showed significantly elevated lipase and amylase. CT scan showed thickening of the bowel patel, mod-large ascites, no bowel obstruction. Last chemo was over 6 weeks ago. I consulted the patient on: 10/27/19 17:19 Time Seen by Provider: 17:00 Review of Systems Constitutional: weakness Respiratory: no symptoms reported Cardiovascular: no symptoms reported Gastrointestinal: abdominal pain, loss of appetite, nausea, vomiting Genitourinary: no symptoms reported Health Status Allergies Coded Allergies: aspirin (Verified Allergy, Unknown, 01/13/18) prochlorperazine (Verified Allergy, Unknown, 06/11/19) Tolerates Phenergan well Home Medications Acetaminophen (Tylenol Extra Strength) 500 Mg Tablet, 1,000 MG PO Q8H PRN for PAIN-MILD (1-4), (Reported) Anastrozole (Arimidex) 1 Mg Tablet, 1 MG PO BID, (Reported) Cefdinir (Cefdinir) 300 Mg Capsule, 300 MG PO BID, (Reported) FILLED 10-21-2019 #20/10 DAY SUPPLY Dextroamphetamine/Amphetamine (Dextroamp-Amphet ER 30 mg Cap) 30 Mg Cap.er.24h, 30 MG PO DAILY, (Reported) Diphenhydramine HCl (Benadryl) 25 Mg Capsule, 50 MG PO Q4H PRN for ALLERGY SYMPTOMS, (Reported) Fluoxetine HCl (Fluoxetine HCl) 40 Mg Capsule, 40 MG PO DAILY, (Reported) Fluticasone Propionate (Fluticasone Propionate) 16 Gm Hanna.susp, 1 SPRAY NSEACH BID PRN for ALLERGY SYMPTOMS, (Reported) Gabapentin (Neurontin) 300 Mg Capsule, 300 MG PO HS, (Reported) LAST FILLED 06-19-2019 #90 Ibuprofen (Ibuprofen) 200 Mg Tablet, 400 MG PO Q8H PRN for PAIN-MILD (1-4), (Reported) Levothyroxine Sodium (Levothyroxine Sodium) 25 Mcg Tablet, 25 MCG PO DAILY, (Reported) Lidocaine HCl (Lidocaine HCl) 5 Ml Jel.pf.geni, 1 APPLIC UR TID PRN for SEVERE BLADDER PAIN, (Reported) USE 1 SYRINGE VIA URETHRA INTO BLADDER NEEDED FOR SEVERE BLADDER PAIN. Morphine Sulfate (Morphine Sulfate ER) 15 Mg Tablet.er, 15 MG PO Q8 -12H, (Reported) Omeprazole (Omeprazole) 40 Mg Capsule.dr, 40 MG PO BID, (Reported) Oxycodone HCl/Acetaminophen (Endocet 5-325 Tablet) 1 Each Tablet, 1-2 EACH PO Q8H PRN for PAIN-MODERATE (5-7), (Reported) Pseudoephedrine HCl (Sudafed) 30 Mg Tablet, 30-60 MG PO Q4H PRN for CONGESTION, (Reported) Zolpidem Tartrate (Zolpidem Tartrate ER) 12.5 Mg Tab.mphase, 12.5 MG PO HS, (Reported) [id number] Hx Patient Social History Marrital Status: Alcohol Use: Denies Use Recreational Drug Use: No Smoking Status: Never a Smoker 2nd Hand Smoke Exposure: No Recent Foreign Travel: No Contact w/other who traveled: No Recent Infectious Disease Expo: No Recent Hopitalizations: No Immunizations Up To Date Tetanus Booster (TDap): Unknown Family Medical History Significant Family History: No Pertinent Family Hx Family History: Asthma 19 FATHER G8 BROTHER G8 SISTER Cardiovascular disease 19 MOTHER FH: skin cancer 19 FATHER G8 BROTHER Myocardial infarction G8 SISTER (X2) Physical Exam Vital Signs Vital Signs - First Documented 10/26/19 10/27/19 23:46 03:10 Temp 37.0 Pulse 123 Resp 22 B/P (MAP) 116/83 (94) Pulse Ox 95 O2 Delivery Room Air Capillary Refill : Less Than 3 Seconds Height, Weight, BMI Height: '" Weight: lbs. oz. kg; 20.86 BMI Method: General Appearance: No Apparent Distress HEENT: PERRL/EOMI Neck: Non Tender, Supple Respiratory: No Accessory Muscle Use, No Respiratory Distress Cardiovascular: Regular Rate, Rhythm, Tachycardia Gastrointestinal: Distended, Mass, Other (palpable nodules) Extremity: Non Tender, No Calf Tenderness, No Pedal Edema Neurologic/Psychiatric: Alert, Oriented x3 Data Review Labs Laboratory Tests 10/27/19 00:04 10/27/19 06:00 Laboratory Tests 10/27/19 00:04: Red Blood Count 3.37L, Hemoglobin 9.1L, Hematocrit 29L, Mean Corpuscular Hemoglobin Concent 31L, Red Cell Distribution Width 18.7H, Platelet Count 505H, Neutrophils (%) (Auto) 84H, Lymphocytes (%) (Auto) 5L, Neutrophils # (Auto) 9.0H , Lymphocytes # (Auto) 0.6L, Monocytes # (Auto) 1.1H, Sodium Level 131L, Chloride Level 96L, Corrected Calcium 10.4H, Magnesium Level 1.2L, Aspartate Amino Transf (AST/SGOT) 43H, Alkaline Phosphatase 216H, Total Protein 6.0L, Albumin 2.6L, Amylase Level 428H, Lipase 948H 10/27/19 00:10: Urine Color AMBERH, Urine Protein 2+H, Urine Ketones TRACEH, Urine RBC (Auto) 1+H, Urine WBC 5-10H, Urine Crystals PRESENTH, Urine Calcium Oxalate Crystals FEWH, Urine Hyaline Casts 0-2H, Urine White Blood Cell Casts 0-2H, Urine Mucus SMALLH 10/27/19 06:00: Red Blood Count 2.89L, Hemoglobin 7.8L, Hematocrit 25L, Mean Corpuscular Hemoglobin Concent 31L, Red Cell Distribution Width 18.7H, Platelet Count 444H, Neutrophils (%) (Auto) 81H, Lymphocytes (%) (Auto) 7L, Lymphocytes # (Auto) 0.7L , Monocytes # (Auto) 1.1H, Sodium Level 129L, Chloride Level 97L, Alkaline Phosphatase 182H, Total Protein 5.4L, Albumin 2.3L, Amylase Level 238H, Glucose Level 124H, Procalcitonin 0.56H Impression & Plan Impression & Plan IMP: 1. Stage IV recurrence and metastatic breast cancer, extensive bone mets and peritoneal carcinomatosis. Last chemo over 6 weeks ago. Disease progressed. She was supposed to have a different chemotherapy early next week. 2. Pancreatitis. Pt had one episode of pancreatitis over 20 years ago without clear trigger factor. CT scan here did not show any lesions in the liver nor pancrease. However, she heard that her sister was diagnosed with breast cancer last weekend. 3. ? SBP 4. Recent UTI 5. Left hydronephrosis s/p stent replacement. Plan: 1. Agree with your current management, bowel rest, IVF and antibiotics 2. Hold off any chemo. See me in 1-2 weeks at the cancer center after the discharge. 3. Dr Arteaga to decide hospital course and discharge plan. 4. Pain control. HUY STONE MD Oct 27, 2019 17:24
[2019-10-27 20:00] VITALS: BP 99/63
[2019-10-28] VITALS (9 sets, daily range): BP systolic 101–124; BP diastolic 60–79
[2019-10-28] MEDS: morphine INJ 4 MG/ML 1 ML (VIAL/SYRINGE) IV PRN ×8 (02:27→23:57)
[2019-10-28] MEDS: D5 NS W/KCL 20 MEQ/L 1,000 ML IV SCH ×4 (03:35→18:58)
[2019-10-28 06:28] LABS: MEAN PLATELET VOLUME 9.1 FL (7.4-10.4); RED CELL DISTRIBUTION WIDTH 18.6 % (10.0-14.5); WHITE BLOOD COUNT 9.3 10^3/uL (4.3-11.0)
[2019-10-28 06:34] LABS: HEMOGLOBIN 6.9 G/DL (11.5-16.0)
[2019-10-28] MEDS ORDERED: NS IV 500 ML 500 ML IV SCH (06:45)
[2019-10-28 06:51] LABS: ALANINE AMINOTRANSFERASE < 6 U/L (0-55); ALBUMIN 2.2 GM/DL (3.2-4.5); ALKALINE PHOSPHATASE 150 U/L (40-136); BILIRUBIN,TOTAL 0.2 MG/DL (0.1-1.0); BUN/CREATININE RATIO 19; CALCIUM 8.6 MG/DL (8.5-10.1); CARBON DIOXIDE 20 MMOL/L (21-32); CHLORIDE 106 MMOL/L (98-107); CREATININE SERUM 0.69 MG/DL (0.60-1.30); GFR ESTIMATED > 60; GLUCOSE 103 MG/DL (70-105); LIPASE 13 U/L (8-78); POTASSIUM 5.3 MMOL/L (3.6-5.0); SODIUM 135 MMOL/L (135-145); TOTAL PROTEIN 5.3 GM/DL (6.4-8.2)
[2019-10-28] MEDS ORDERED: NS IV 500 ML 500 ML ONE (08:59)
[2019-10-28] MEDS: PANTOPRAZOLE 40 MG (PROTONIX) VIAL IV SCH (09:16)
[2019-10-28] MEDS: cefTRIAXone FOR IV USE 1,000 MG in WATER (STERILE) FOR INJECTION 10 ML IV SCH (09:17)
[2019-10-28] MEDS: PROMETHAZINE INJ 25 MG/ML (PHENERGAN) AMP IV PRN ×4 (09:45→23:56)
[2019-10-28] MEDS ORDERED: ACETAMINOPHEN 500 MG TAB (TYLENOL) PO PRN (10:00)
[2019-10-28] MEDS ORDERED: FLUTICASONE NASAL SPRAY (FLONASE) 16 GM BTL NS PRN (10:00)
[2019-10-28] MEDS ORDERED: IBUPROFEN TABLET 200 MG TAB PO PRN (10:00)
--- NOTE | 2019-10-28 10:01 | Progress Note - Hospitalist ---
Subjective HPI/CC On Admission Date Seen by Provider: Oct 28, 2019 Time Seen by Provider: 09:57 Pt is a 59yoCF with a PMH of metastatic breast cancer to spine, pelvis, and omentum who presented to the ER due to abdominal pain and vomiting. She had her ureteral stent replaced 1 week ago and then was diagnosed with a UTI following that. She was treated with oral antibiotics (cefidnir) but has not done well since then. Two days ago she developed abdominal pain and nausea. She has had poor oral intake but was able to eat a sandwich yesterday. This worsened her pain and then she vomited it up. Her reports she has also had worsening ascites and they have been draining over 2L of fluid from her abdomen, up from 1L. She states she is very nauseated and the Phenergan makes her sleepy. She was also supposed to start a new chemotherapy with Dr Gregory because her last chemo was not longer working. She was found to have pancreatitis and was admitted for symptomatic management. Subjective/Events-last exam Pt reports feeling better today but still having pain. Would like to try to advance diet though. Objective Exam Vital Signs Vital Signs Date Time Temp Pulse Resp B/P (MAP) Pulse Ox O2 Delivery O2 Flow Rate FiO2 10/28/19 08:48 36.3 89 18 121/60 (80) 95 Room Air Capillary Refill : Less Than 3 Seconds General Appearance: No Apparent Distress, Chronically ill, Cachetic (temporal wasting noted) Respiratory: Lungs Clear, No Respiratory Distress Cardiovascular: Regular Rate, Rhythm, No Murmur Gastrointestinal: Abnormal Bowel Sounds (quiet but present), Distended Neurologic/Psychiatric: Alert, Oriented x3 Results/Procedures Lab Laboratory Tests 10/28/19 06:22 Patient resulted labs reviewed. Imaging: Reviewed Imaging Report Assessment/Plan Assessment and Plan Assess & Plan/Chief Complaint Pancreatitis Metastatic breast cancer Large volume ascites Advance to clear liquid diet IVF Continue morphine and antimetics for symptom control Fever Recent UTI Ureteral stent Continue Rocephin Urine culture with no growth Await culture results of ascites and blood Anemia due to chronic disease Hgb 6.9 today Transfuse 1 unit today Hypothyroidism Resume synthroid Hyponatremia, acute on chronic- resolved DVT ppx: SCDs due to anemia Clinical Quality Measures DVT/VTE Risk/Contraindication: Risk Factor Score Per Nursin RFS Level Per Nursing on Admit: 2=Moderate ZAIN LANDRUM MD Oct 28, 2019 10:01
--- NOTE | 2019-10-28 12:33 | NUR ---
"RD ASSESSMENT PMHx: HTN; GERD; hypothyroidism; CA(breast|mets-bone); pancreatitis PT INTERACTION: Pt was awake and pleasant during nutrition assessment. Pt states current appetite is good, though she does not eat much. Pt attributes low PO intake to ascites putting pressure on her stomach, enabling her to consume very little food. Note pt has been NPO x1d, per chart review. Pt states following regular diet at home, and has no issues with chewing/swallowing food. Pt states recent issues with nausea (for past 2w), vomiting (last few days), and constipation, and that her last BM was 8. Note pt not currently on bowel regimen per chart review. Note recent 35# wt gain x7d, due to ascites and fluid accumulation. ABNORMAL NUTRITION-RELATED LAB VALUES LOW: Pro 5.3; alb 2.2 HIGH: K 5.3; alkphos 150 Est. kcal needs: 1700 kcal | 20 kcal/kg Est. Pro needs: 85 g Pro | 1.0 g Pro/kg PES STATEMENT: Inadequate oral intake (NI-2.1) related to loss of appetite | nausea | vomiting | constipation as evidenced by pt interview INTERVENTION: Continue with current diet order of Clear Liquid diet. Would recommend diet advancement when medically able and as tolerated. Pt may benefit from nutrition supplementation if PO intake declines. Encouraged pt to eat when able. Will continue to follow and reassess as pt needs, intake, and status change. MONITOR/EVALUATE: PO Intake; Plan of Care; Hydration Status; Weight Status; Lab Values Abdoulaye Chacon, MS, RD, LD"
--- NOTE | 2019-10-28 14:38 | Progress Note - Surgery ---
SHALINI PHILLIPS MED STUDENT 10/28/19 1438: Subjective Date Seen by a Provider: Oct 28, 2019 Time Seen by a Provider: 07:15 Subjective/Events-last exam Pt in no acute distress but claims abdominal pain has increased. Rates her pain a 6/10. Also feels her ascites has gotten worse and may need drained soon. Denies n/v, fever, chills, sob, chest pain. Objective Exam Vital Signs Date Time Temp Pulse Resp B/P (MAP) Pulse Ox O2 Delivery O2 Flow Rate FiO2 10/28/19 13:12 90 10/28/19 12:18 36.8 94 116/79 94 Room Air 10/28/19 12:16 36.8 94 18 116/79 (91) 94 Room Air 10/28/19 12:05 91 10/28/19 10:11 37.0 89 110/69 95 Room Air 10/28/19 09:55 37.2 94 16 124/70 98 Room Air 10/28/19 08:48 36.3 89 18 121/60 (80) 95 Room Air 10/28/19 08:00 Room Air 10/28/19 07:00 95 10/28/19 04:00 37.0 93 18 101/65 (77) 95 Room Air 10/28/19 01:00 93 10/28/19 00:00 37.0 91 18 108/67 (81) 96 Room Air 10/27/19 20:00 Room Air 10/27/19 20:00 36.6 91 16 99/63 (75) 96 Room Air 10/27/19 19:00 93 10/27/19 15:30 36.7 10/27/19 15:30 36.7 106 20 109/60 (76) 94 Room Air 10/27/19 14:39 38.1 I & O 10/28/19 07:00 Intake Total 1000 ml Balance 1000 ml Capillary Refill : Less Than 3 Seconds General Appearance: No Apparent Distress, Chronically ill, Thin HEENT: PERRL/EOMI Neck: Non Tender, Supple Respiratory: Lungs Clear, No Respiratory Distress Cardiovascular: Regular Rate, Rhythm, No Murmur Gastrointestinal: soft, distended (minimal); No guarding, No rebound; tenderness (epigastric area) Extremity: No Calf Tenderness, No Pedal Edema Neurologic/Psychiatric: Alert, Oriented x3, Normal Mood/Affect Results Lab Laboratory Tests 10/28/19 06:22: White Blood Count 9.3, Red Blood Count 2.63L, Hemoglobin 6.9*L, Hematocrit 24L, Mean Corpuscular Volume 89, Mean Corpuscular Hemoglobin 26, Mean Corpuscular Hemoglobin Concent 29L, Red Cell Distribution Width 18.6H, Platelet Count 414H, Mean Platelet Volume 9.1, Sodium Level 135, Potassium Level 5.3H, Chloride Level 106, Carbon Dioxide Level 20L, Anion Gap 9, Blood Urea Nitrogen 13, Creatinine 0.69, Estimat Glomerular Filtration Rate > 60, BUN/Creatinine Ratio 19, Glucose Level 103, Calcium Level 8.6, Corrected Calcium 10.0, Total Bilirubin 0.2, Aspartate Amino Transf (AST/SGOT) 22, Alanine Aminotransferase (ALT/SGPT) < 6, Alkaline Phosphatase 150H, Total Protein 5.3L, Albumin 2.2L, Lipase 13, Pro calcitonin 0.50H Microbiology 10/27/19 Urine Culture - Final, Complete NO GROWTH Assessment/Plan Assessment/Plan Assessment/Plan epigastric abdominal pain pancreatitis metastatic breast cancer conservative measures begin liquid diet Has pleur-x catheter to drain ascites prn Clinical Quality Measures DVT/VTE Risk/Contraindication: Risk Factor Score Per Nursin RFS Level Per Nursing on Admit: 2=Moderate NICKIE PATINO DO 10/28/19 1700: Subjective Subjective/Events-last exam Feeling better today. Tried to advance diet but didn't tolerate the sugars. Pain 6/10. Abdomen more distended and not wanting drained yet. Feels okay with waiting. Hgb drop. Going to get 1 unit prbc. No n/v fever sweats chills shortness of breath or chest pain at this time. Objective Exam General Appearance: No Apparent Distress, Chronically ill HEENT: PERRL/EOMI Neck: Non Tender, Supple Respiratory: Chest Non Tender, No Accessory Muscle Use, No Respiratory Distress Cardiovascular: Regular Rate, Rhythm, No Edema Gastrointestinal: distended (minimal); No guarding, No rebound; tenderness (epigastric area minimal, pleur-x right abdomen) Extremity: Non Tender, No Calf Tenderness Neurologic/Psychiatric: Alert, Oriented x3, Normal Mood/Affect Skin: Normal Color, Warm/Dry Lymphatic: No Adenopathy Assessment/Plan Assessment/Plan Assessment/Plan epigastric abdominal pain pancreatitis metastatic breast cancer anemia-chronic disease continue conservative measures may need to drain pleur-x tomorrow transfuse 1 unit prbc clear diet Supervisory-Addendum Brief Verification & Attestation Participated in pt care: history, MDM, physical Personally performed: exam, history, MDM, supervision of care Care discussed with: Medical Student Procedures: n/a Results interpretation: Verified all documentation Verification and Attestation of Medical Student E/M Service A medical student performed and documented this service in my presence. I reviewed and verified all information documented by the medical student and made modifications to such information, when appropriate. I personally performed the physical exam and medical decision making. Nickie Patino, Oct 28, 2019,16:59 SHALINI PHILLIPS MED STUDENT Oct 28, 2019 14:38 NICKIE PATINO DO Oct 28, 2019 17:00
[2019-10-28] MEDS: ONDANSETRON 4 MG/2 ML (SDV) Z0FRAN IV PRN ×2 (14:45→21:25)
--- NOTE | 2019-10-28 15:43 | Oncology Progress Note ---
Subjective Date Seen by a Provider: Oct 28, 2019 Time Seen by a Provider: 11:00 Subjective/Events-last exam Pt is feeling better. Hb is 6.9 today and is getting one unit of RBC Dr Arteaga started her on clear liquid this morning. Pain under good control. Data Review Labs Laboratory Tests 10/28/19 06:22 Laboratory Tests 10/27/19 00:04: Red Blood Count 3.37L, Hemoglobin 9.1L, Hematocrit 29L, Mean Corpuscular Hemoglobin Concent 31L, Red Cell Distribution Width 18.7H, Platelet Count 505H, Neutrophils (%) (Auto) 84H, Lymphocytes (%) (Auto) 5L, Neutrophils # (Auto) 9.0H , Lymphocytes # (Auto) 0.6L, Monocytes # (Auto) 1.1H, Sodium Level 131L, Chloride Level 96L, Corrected Calcium 10.4H, Magnesium Level 1.2L, Aspartate Amino Transf (AST/SGOT) 43H, Alkaline Phosphatase 216H, Total Protein 6.0L, Albumin 2.6L, Amylase Level 428H, Lipase 948H 10/27/19 00:10: Urine Color AMBERH, Urine Protein 2+H, Urine Ketones TRACEH, Urine RBC (Auto) 1+H, Urine WBC 5-10H, Urine Crystals PRESENTH, Urine Calcium Oxalate Crystals FEWH, Urine Hyaline Casts 0-2H, Urine White Blood Cell Casts 0-2H, Urine Mucus SMALLH 10/27/19 06:00: Red Blood Count 2.89L, Hemoglobin 7.8L, Hematocrit 25L, Mean Corpuscular Hemoglobin Concent 31L, Red Cell Distribution Width 18.7H, Platelet Count 444H, Neutrophils (%) (Auto) 81H, Lymphocytes (%) (Auto) 7L, Lymphocytes # (Auto) 0.7L , Monocytes # (Auto) 1.1H, Sodium Level 129L, Chloride Level 97L, Alkaline Phos phatase 182H, Total Protein 5.4L, Albumin 2.3L, Amylase Level 238H, Glucose Level 124H, Procalcitonin 0.56H 10/28/19 06:22: Red Blood Count 2.63L, Hemoglobin 6.9*L, Hematocrit 24L, Mean Corpuscular Hemoglobin Concent 29L, Red Cell Distribution Width 18.6H, Platelet Count 414H, Alkaline Phosphatase 150H, Total Protein 5.3L, Albumin 2.2L, Procalcitonin 0.50H , Potassium Level 5.3H, Carbon Dioxide Level 20L Physical Exam Vital Signs Vital Signs - First Documented 10/26/19 10/27/19 23:46 03:10 Temp 37.0 Pulse 123 Resp 22 B/P (MAP) 116/83 (94) Pulse Ox 95 O2 Delivery Room Air Capillary Refill : Less Than 3 Seconds Height, Weight, BMI Height: '" Weight: lbs. oz. kg; 20.86 BMI Method: General Appearance: No Apparent Distress HEENT: PERRL/EOMI Neck: Supple Respiratory: No Accessory Muscle Use, No Respiratory Distress Gastrointestinal: Non Tender, Soft, Distended Neurologic/Psychiatric: Alert, Oriented x3 Impression & Plan Impression & Plan IMP: 1. Stage IV recurrence and metastatic breast cancer, extensive bone mets and peritoneal carcinomatosis. Last chemo over 6 weeks ago. Disease progressed. She was supposed to have a different chemotherapy early next week. 2. Pancreatitis. Pt had one episode of pancreatitis over 20 years ago without clear trigger factor. CT scan here did not show any lesions in the liver nor pancrease. However, she heard that her sister was diagnosed with breast cancer last weekend. 3. ? SBP 4. Recent UTI 5. Left hydronephrosis s/p stent replacement. Plan: 1. Agree with your current management, bowel rest, IVF and antibiotics 2. See me on 11/09/2019 9:45 at the cancer center to discuss chemotherapy. 3. Dr Arteaga to decide hospital course and discharge plan. 4. Pain control. 5. She can restart Arimidex PO medication and other meds. Clinical Quality Measures DVT/VTE Risk/Contraindication: Risk Factor Score Per Nursin RFS Level Per Nursing on Admit: 2=Moderate HUY STONE MD Oct 28, 2019 15:43
[2019-10-28] MEDS: PANTOPRAZOLE 40 MG (PROTONIX) TAB PO SCH (21:20)
[2019-10-28] MEDS: GABAPENTIN 300 MG (NEURONTIN) CAP PO SCH (21:20)
[2019-10-28] MEDS: oxyCODONE/APAP 5/325MG (PERCOCET 5) TABLET PO PRN (21:20)
[2019-10-28] MEDS: ANASTROZOLE 1 MG TAB (ARIMIDEX) PO SCH (21:22)
--- NOTE | 2019-10-28 21:30 | NUR ---
Pt took her own medication (Arimidex) since it is not available to dispense. Notified Dr. Gregory.
[2019-10-29] VITALS (7 sets, daily range): BP systolic 109–115; BP diastolic 62–73
[2019-10-29] MEDS: ONDANSETRON 4 MG/2 ML (SDV) Z0FRAN IV PRN ×4 (02:26→19:36)
[2019-10-29] MEDS: morphine INJ 4 MG/ML 1 ML (VIAL/SYRINGE) IV PRN ×7 (02:26→23:46)
[2019-10-29] MEDS: D5 NS W/KCL 20 MEQ/L 1,000 ML IV SCH ×2 (05:43→17:17)
[2019-10-29] MEDS: PROMETHAZINE INJ 25 MG/ML (PHENERGAN) AMP IV PRN ×4 (05:44→23:45)
[2019-10-29 06:27] LABS: MEAN PLATELET VOLUME 9.6 FL (7.4-10.4); RED CELL DISTRIBUTION WIDTH 18.3 % (10.0-14.5); WHITE BLOOD COUNT 11.9 10^3/uL (4.3-11.0)
[2019-10-29] MEDS: LEVOTHYROXINE 25 MCG (LEVOTHROID) TAB PO SCH (06:37)
[2019-10-29 06:46] LABS: BUN/CREATININE RATIO 19; CALCIUM 9.7 MG/DL (8.5-10.1); CARBON DIOXIDE 17 MMOL/L (21-32); CHLORIDE 106 MMOL/L (98-107); CREATININE SERUM 0.73 MG/DL (0.60-1.30); GFR ESTIMATED > 60; GLUCOSE 106 MG/DL (70-105); POTASSIUM 5.2 MMOL/L (3.6-5.0); SODIUM 133 MMOL/L (135-145)
[2019-10-29] MEDS: FLUoxetine HCL 20 MG (PROzac) CAP PO SCH (08:28)
[2019-10-29] MEDS: PANTOPRAZOLE 40 MG (PROTONIX) TAB PO SCH ×2 (08:28→19:36)
[2019-10-29] MEDS ORDERED: DEXTROAMPHETAMINE PO SCH (09:00)
[2019-10-29] MEDS ORDERED: [UNRECOGNIZED DRUG - OTHER] PO SCH (09:00)
[2019-10-29] MEDS ORDERED: AMPHETAMINE PO SCH (09:00)
--- NOTE | 2019-10-29 09:15 | Progress Note - Hospitalist ---
Subjective HPI/CC On Admission Date Seen by Provider: Oct 29, 2019 Time Seen by Provider: 09:10 Pt is a 59yoCF with a PMH of metastatic breast cancer to spine, pelvis, and omentum who presented to the ER due to abdominal pain and vomiting. She had her ureteral stent replaced 1 week ago and then was diagnosed with a UTI following that. She was treated with oral antibiotics (cefidnir) but has not done well since then. Two days ago she developed abdominal pain and nausea. She has had poor oral intake but was able to eat a sandwich yesterday. This worsened her pain and then she vomited it up. Her reports she has also had worsening ascites and they have been draining over 2L of fluid from her abdomen, up from 1L. She states she is very nauseated and the Phenergan makes her sleepy. She was also supposed to start a new chemotherapy with Dr Gregory because her last chemo was not longer working. She was found to have pancreatitis and was admitted for symptomatic management. Subjective/Events-last exam Pt reports nausea and vomiting this morning. Feeling better now. Objective Exam Vital Signs Vital Signs Date Time Temp Pulse Resp B/P (MAP) Pulse Ox O2 Delivery O2 Flow Rate FiO2 10/29/19 07:50 36.3 81 18 111/71 (84) 97 Room Air Capillary Refill : Less Than 3 Seconds General Appearance: Chronically ill, Mild Distress (looks uncomfortable) Respiratory: Lungs Clear, No Respiratory Distress Cardiovascular: Regular Rate, Rhythm, No Murmur Gastrointestinal: Abnormal Bowel Sounds (quiet ), Distended; No Guarding Neurologic/Psychiatric: Alert, Oriented x3 Results/Procedures Lab Laboratory Tests 10/29/19 05:26 Patient resulted labs reviewed. Imaging: Reviewed Imaging Report Assessment/Plan Assessment and Plan Assess & Plan/Chief Complaint Pancreatitis Metastatic breast cancer Large volume ascites Advance to clear liquid diet as she tolerates IVF Continue morphine and antiemetics for symptom control Continue home meds as able Fever Recent UTI Ureteral stent Continue Rocephin Urine and blood culture with no growth Await culture results of ascites when she drains it Anemia due to chronic disease Hgb 7.0 s/p 1 unit transfusion Check in AM Hypothyroidism Cont synthroid Hyponatremia, acute on chronic- resolved DVT ppx: SCDs due to anemia Diagnosis/Problems Diagnosis/Problems (1) Metastatic breast cancer Status: Acute (2) Intractable nausea and vomiting Status: Chronic (3) Pancreatitis Qualifiers: Chronicity: acute Pancreatitis type: other Acute pancreatitis complication: no infection or necrosis Qualified Codes: K85.80 - Other acute pancreatitis without necrosis or infection (4) Intractable abdominal pain Status: Acute (5) Chronic anemia Status: Acute (6) Peritoneal carcinomatosis Status: Chronic (7) Ascites Status: Acute Qualifiers: Ascites type: malignant Qualified Codes: R18.0 - Malignant ascites Clinical Quality Measures DVT/VTE Risk/Contraindication: Risk Factor Score Per Nursin RFS Level Per Nursing on Admit: 2=Moderate ZAIN LANDRUM MD Oct 29, 2019 09:15
[2019-10-29] MEDS: ANASTROZOLE 1 MG TAB (ARIMIDEX) PO SCH ×2 (09:47→19:35)
[2019-10-29] MEDS: cefTRIAXone FOR IV USE 1,000 MG in WATER (STERILE) FOR INJECTION 10 ML IV SCH (10:02)
--- NOTE | 2019-10-29 10:57 | Oncology Progress Note ---
Subjective Date Seen by a Provider: Oct 29, 2019 Time Seen by a Provider: 11:59 Subjective/Events-last exam Still nausea and vomiting this morning. No fever. She felt that she has vaginal yeast infection She got morphine and Zofran and now nausea subsided. She had one unit of RBC yesterday for Hb 6.9 and today Hb 7.0 Blood and urine culture negative growth Ascites fluid culture pending. Day 3 IV Rocephin. Amylase coming down to near normal. Data Review Labs Laboratory Tests 10/29/19 05:26 Laboratory Tests 10/27/19 00:04: Red Blood Count 3.37L, Hemoglobin 9.1L, Hematocrit 29L, Mean Corpuscular Hemoglobin Concent 31L, Red Cell Distribution Width 18.7H, Platelet Count 505H, Neutrophils (%) (Auto) 84H, Lymphocytes (%) (Auto) 5L, Neutrophils # (Auto) 9.0H , Lymphocytes # (Auto) 0.6L, Monocytes # (Auto) 1.1H, Sodium Level 131L, Chloride Level 96L, Corrected Calcium 10.4H, Magnesium Level 1.2L, Aspartate Amino Transf (AST/SGOT) 43H, Alkaline Phosphatase 216H, Total Protein 6.0L, Albumin 2.6L, Amylase Level 428H, Lipase 948H 10/27/19 00:10: Urine Color AMBERH, Urine Protein 2+H, Urine Ketones TRACEH, Urine RBC (Auto) 1+H, Urine WBC 5-10H, Urine Crystals PRESENTH, Urine Calcium Oxalate Crystals FEWH, Urine Hyaline Casts 0-2H, Urine White Blood Cell Casts 0-2H, Urine Mucus SMALLH 10/27/19 02:50: 10/27/19 06:00: Red Blood Count 2.89L, Hemoglobin 7.8L, Hematocrit 25L, Mean Corpuscular Hemoglobin Concent 31L, Red Cell Distribution Width 18.7H, Platelet Count 444H, Neutrophils (%) (Auto) 81H, Lymphocytes (%) (Auto) 7L, Lymphocytes # (Auto) 0.7L , Monocytes # (Auto) 1.1H, Sodium Level 129L, Chloride Level 97L, Alkaline Phosphatase 182H, Total Protein 5.4L, Albumin 2.3L, Amylase Level 238H, Glucose Level 124H, Procalcitonin 0.56H 10/28/19 06:22: Red Blood Count 2.63L, Hemoglobin 6.9*L, Hematocrit 24L, Mean Corpuscular Hemoglobin Concent 29L, Red Cell Distribution Width 18.6H, Platelet Count 414H, Potassium Level 5.3H, Carbon Dioxide Level 20L, Alkaline Phosphatase 150H, Total Protein 5.3L, Albumin 2.2L, Procalcitonin 0.50H 10/29/19 05:26: Red Blood Count 2.57L, Hemoglobin 7.0L, Hematocrit 23L, Mean Corpuscular Hemoglobin Concent 30L, Red Cell Distribution Width 18.3H, Platelet Count 464H, Potassium Level 5.2H, Carbon Dioxide Level 17L, White Blood Count 11.9H, Sodium Level 133L, Glucose Level 106H 10/29/19 11:04: Physical Exam Vital Signs Vital Signs - First Documented 10/26/19 10/27/19 23:46 03:10 Temp 37.0 Pulse 123 Resp 22 B/P (MAP) 116/83 (94) Pulse Ox 95 O2 Delivery Room Air Capillary Refill : Less Than 3 Seconds Height, Weight, BMI Height: '" Weight: lbs. oz. kg; 20.86 BMI Method: General Appearance: No Apparent Distress Respiratory: No Accessory Muscle Use, No Respiratory Distress Gastrointestinal: Soft, Distended Neurologic/Psychiatric: Alert, Oriented x3 Impression & Plan Impression & Plan IMP: 1. Stage IV recurrence and metastatic breast cancer, extensive bone mets and peritoneal carcinomatosis. Last chemo over 6 weeks ago. Disease progressed. She was supposed to have a different chemotherapy early next week. 2. Pancreatitis. Pt had one episode of pancreatitis over 20 years ago without clear trigger factor. CT scan here did not show any lesions in the liver nor pancreas. However, she heard that her sister was diagnosed with breast cancer last weekend which caused her a lot of stress. 3. ? SBP 4. Recent UTI 5. Left hydronephrosis s/p stent replacement. 6. Blood culture and urine culture are negative growth this admission. 7. Yeast infection of vaginal due to care home of antibiotics. Plan: 1. Agree with your current management, bowel rest, IVF and antibiotics. F/u culture results of the ascites. 2. See me on 11/09/2019 9:45 at the cancer center to discuss chemotherapy. 3. Dr Arteaga to decide hospital course and discharge plan. 4. Pain control. 5. She can restart Arimidex PO medication and other meds. 6. 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 7. Diflucan 150mg IV x 3 doses. Clinical Quality Measures DVT/VTE Risk/Contraindication: Risk Factor Score Per Nursin RFS Level Per Nursing on Admit: 2=Moderate HUY STONE MD Oct 29, 2019 10:57
[2019-10-29] MEDS ORDERED: PIPERACILLIN/TAZOBACTAM (BULK) 4.5 GM in NS (IVPB) 100 ML IV NR (13:00)
[2019-10-29] MEDS: FLUCONAZOLE 100 MG/50 ML IVPB IV SCH ×2 (13:06)
--- NOTE | 2019-10-29 15:25 | NUR ---
LATE ENTRY: 1 LITER DRAINED FROM PLURAL VAC PER VERBAL ORDERS DR PERDOMO. STERILE TECHNIQUE PERFORMED AND PT TOLERATED WELL.
--- NOTE | 2019-10-29 16:21 | Progress Note - Surgery ---
SHALINI PHILLIPS MED STUDENT 10/29/19 1621: Subjective Date Seen by a Provider: Oct 29, 2019 Time Seen by a Provider: 07:35 Subjective/Events-last exam Pt appeared comfortable but her abdominal pain has slightly increased. She feels like she needs drained today. Pain is epigastric and is probably associated with pancreatic episode yesterday. Is tolerating liquids well. Denies n/v, fever, chills ,sob, chest pain. Objective Exam Vital Signs Date Time Temp Pulse Resp B/P (MAP) Pulse Ox O2 Delivery O2 Flow Rate FiO2 10/29/19 16:03 37.2 84 17 109/62 (78) 94 Room Air 10/29/19 13:00 81 10/29/19 11:45 36.5 82 16 115/63 (80) 95 Room Air 10/29/19 08:20 97 Room Air 10/29/19 07:50 36.3 81 18 111/71 (84) 97 Room Air 10/29/19 07:00 81 10/29/19 04:00 37.0 89 18 110/73 (85) 94 Room Air 10/29/19 01:00 83 10/29/19 00:00 37.2 85 18 110/70 (83) 96 Room Air 10/28/19 20:55 Room Air 10/28/19 19:30 36.5 88 16 123/68 (86) 95 Room Air 10/28/19 19:00 88 10/28/19 16:24 37.1 86 16 120/65 (83) 98 Room Air I & O 10/29/19 07:00 Intake Total 2800 ml Balance 2800 ml Capillary Refill : Less Than 3 Seconds General Appearance: No Apparent Distress HEENT: PERRL/EOMI Neck: Non Tender, Supple Respiratory: No Accessory Muscle Use, No Respiratory Distress Cardiovascular: Regular Rate, Rhythm, No Murmur Gastrointestinal: distended (minimal); No guarding, No rebound; tenderness (epigastric area minimal, pleur-x right abdomen) Extremity: Non Tender, No Calf Tenderness Neurologic/Psychiatric: Alert, Oriented x3 Skin: Normal Color, Warm/Dry Lymphatic: No Adenopathy Results Lab Laboratory Tests 10/29/19 05:26: White Blood Count 11.9H, Red Blood Count 2.57L, Hemoglobin 7.0L, Hematocrit 23L, Mean Corpuscular Volume 90, Mean Corpuscular Hemoglobin 27, Mean Corpuscular Hemoglobin Concent 30L, Red Cell Distribution Width 18.3H, Platelet Count 464H, Mean Platelet Volume 9.6, Sodium Level 133L, Potassium Level 5.2H, Chloride Level 106, Carbon Dioxide Level 17L, Anion Gap 10, Blood Urea Nitrogen 14, Creatinine 0.73, Estimat Glomerular Filtration Rate > 60, BUN/Creatinine Ratio 19, Glucose Level 106H, Calcium Level 9.7 10/29/19 11:04: Lab Scanned Report Transfusion Reaction Form Microbiology 10/27/19 Blood Culture - Preliminary, Resulted No growth 10/27/19 Urine Culture - Final, Complete NO GROWTH Assessment/Plan Assessment/Plan Assessment/Plan epigastric abdominal pain pancreatitis metastatic breast cancer anemia-chronic disease continue conservative measures drain today transfuse 1 unit prbc clear diet Clinical Quality Measures DVT/VTE Risk/Contraindication: Risk Factor Score Per Nursin RFS Level Per Nursing on Admit: 2=Moderate NICKIE PATINO DO 10/30/19 1109: Subjective Subjective/Events-last exam Started clears and sugar drinks has increased pain she thinks. Since stopping them she feels better. Feels like she may need drained through her pleur-x. Had a bm. Denies n/v fever sweats chills shortness of breath or chest pain. Objective Exam General Appearance: No Apparent Distress HEENT: PERRL/EOMI Neck: Non Tender, Supple Respiratory: No Accessory Muscle Use, No Respiratory Distress Cardiovascular: Regular Rate, Rhythm Gastrointestinal: distended (minimal); No guarding, No rebound; tenderness (epigastric area minimal, pleur-x right abdomen) Extremity: Non Tender, No Calf Tenderness Neurologic/Psychiatric: Alert, Oriented x3 Skin: Normal Color, Warm/Dry Lymphatic: No Adenopathy Assessment/Plan Assessment/Plan Assessment/Plan epigastric abdominal pain pancreatitis metastatic breast cancer anemia-chronic disease conservative measures transfuse prn symptomatic management no surgical intervention Supervisory-Addendum Brief Verification & Attestation Participated in pt care: history, MDM, physical Personally performed: exam, history, MDM, supervision of care Care discussed with: Medical Student Procedures: n/a Results interpretation: Verified all documentation Verification and Attestation of Medical Student E/M Service A medical student performed and documented this service in my presence. I reviewed and verified all information documented by the medical student and made modifications to such information, when appropriate. I personally performed the physical exam and medical decision making. Nickie Patino, Oct 29, 2019,18:08 SHALINI PHILLIPS MED STUDENT Oct 29, 2019 16:21 NICKIE PATINO DO Oct 30, 2019 11:09
--- NOTE | 2019-10-29 16:44 | NUR ---
Report received from TINO Garcia. This RN assumed care of pt at this time.
--- NOTE | 2019-10-29 16:52 | NUR ---
DUE TO CHANGES IN STAFFING CARE OF PT TO KIMBERLYN JIMÉNEZ, REPORT GIVEN
[2019-10-29] MEDS: PIPERACILLIN/TAZOBACTAM (BULK) 4.5 GM in NS (IVPB) 100 ML IV SCH (19:34)
[2019-10-29] MEDS: GABAPENTIN 300 MG (NEURONTIN) CAP PO SCH (19:35)
[2019-10-30 04:00] VITALS: BP 132/72
[2019-10-30] MEDS: PIPERACILLIN/TAZOBACTAM (BULK) 4.5 GM in NS (IVPB) 100 ML IV SCH ×3 (05:05→18:00)
[2019-10-30] MEDS: LEVOTHYROXINE 25 MCG (LEVOTHROID) TAB PO SCH (06:06)
[2019-10-30] MEDS: PROMETHAZINE INJ 25 MG/ML (PHENERGAN) AMP IV PRN ×3 (06:08→21:21)
[2019-10-30] MEDS: morphine INJ 4 MG/ML 1 ML (VIAL/SYRINGE) IV PRN ×2 (06:08→09:03)
[2019-10-30] MEDS: D5 NS W/KCL 20 MEQ/L 1,000 ML IV SCH ×3 (06:11→21:27)
[2019-10-30 07:58] VITALS: BP 127/77
--- NOTE | 2019-10-30 08:50 | NUR ---
prior to a.m. medications pulse was 88 bpm and b/p was 127/77.
[2019-10-30] MEDS: FLUCONAZOLE 100 MG/50 ML IVPB IV SCH ×2 (09:03)
[2019-10-30] MEDS: PANTOPRAZOLE 40 MG (PROTONIX) TAB PO SCH ×2 (09:06→21:27)
[2019-10-30] MEDS: FLUoxetine HCL 20 MG (PROzac) CAP PO SCH (09:06)
[2019-10-30] MEDS ORDERED: PATIENT MAY USE OWN MED,SINGLE MED PO SCH (09:15)
--- NOTE | 2019-10-30 09:22 | Progress Note - Hospitalist ---
Subjective HPI/CC On Admission Date Seen by Provider: Oct 30, 2019 Time Seen by Provider: 09:12 Pt is a 59yoCF with a PMH of metastatic breast cancer to spine, pelvis, and omentum who presented to the ER due to abdominal pain and vomiting. She had her ureteral stent replaced 1 week ago and then was diagnosed with a UTI following that. She was treated with oral antibiotics (cefidnir) but has not done well since then. Two days ago she developed abdominal pain and nausea. She has had poor oral intake but was able to eat a sandwich yesterday. This worsened her pain and then she vomited it up. Her reports she has also had worsening ascites and they have been draining over 2L of fluid from her abdomen, up from 1L. She states she is very nauseated and the Phenergan makes her sleepy. She was also supposed to start a new chemotherapy with Dr Gregory because her last chemo was not longer working. She was found to have pancreatitis and was admitted for symptomatic management. Subjective/Events-last exam Pt report persistent nausea and vomiting. Pain still at a 7 even with morphine. Drained ascites yesterday but feels she may need to again today. Objective Exam Vital Signs Vital Signs Date Time Temp Pulse Resp B/P (MAP) Pulse Ox O2 Delivery O2 Flow Rate FiO2 10/30/19 08:11 93 Room Air 10/30/19 07:58 36.6 88 17 127/77 (94) Capillary Refill : Less Than 3 SecondsLess Than 3 Seconds General Appearance: Chronically ill, Cachetic Respiratory: Lungs Clear, No Respiratory Distress Cardiovascular: Regular Rate, Rhythm, No Murmur Gastrointestinal: Normal Bowel Sounds, Distended (tight) Neurologic/Psychiatric: Alert, Oriented x3 Results/Procedures Lab Patient resulted labs reviewed. Imaging: Reviewed Imaging Report Assessment/Plan Assessment and Plan Assess & Plan/Chief Complaint Pancreatitis Metastatic breast cancer Large volume ascites Not tolerating CLD because of sweetness of liquids offered, will switch to d ysphagia diet so she can have less sweet foods Continue IVF- if not able to PO by Friday may need to consider TPN Continue morphine at increased dose and antiemetics for symptom control Continue home meds as able Fever- resolved Recent UTI Ureteral stent Switched to Zosyn yesterday due to previous culture results from September Urine and blood culture with no growth Await culture results of ascites Anemia due to chronic disease Hgb 7.0 yesterday s/p 1 unit transfusion Labs pending Hypothyroidism Cont synthroid DVT ppx: SCDs due to anemia Diagnosis/Problems Diagnosis/Problems (1) Metastatic breast cancer Status: Acute (2) Intractable nausea and vomiting Status: Chronic (3) Pancreatitis Qualifiers: Chronicity: acute Pancreatitis type: other Acute pancreatitis complication: no infection or necrosis Qualified Codes: K85.80 - Other acute pancreatitis without necrosis or infection (4) Intractable abdominal pain Status: Acute (5) Chronic anemia Status: Acute (6) Peritoneal carcinomatosis Status: Chronic (7) Ascites Status: Acute Qualifiers: Ascites type: malignant Qualified Codes: R18.0 - Malignant ascites Clinical Quality Measures DVT/VTE Risk/Contraindication: Risk Factor Score Per Nursin RFS Level Per Nursing on Admit: 2=Moderate ZAIN LANDRUM MD Oct 30, 2019 09:22
[2019-10-30] MEDS: ANASTROZOLE 1 MG TAB (ARIMIDEX) PO SCH ×3 (09:55→21:20)
--- NOTE | 2019-10-30 10:03 | Progress Note - Surgery ---
MARK PRIETO MED STUDENT 10/30/19 1003: Subjective Date Seen by a Provider: Oct 30, 2019 Time Seen by a Provider: 07:30 Subjective/Events-last exam Patient states she feels a little "stopped up" but has able to have a bowel movement last night, saying that food seems to pass slower likely because of her medication. She notes two episodes of vomiting last night and is able to keep down broth and water but the Jello makes her nauseous. She states she is otherwise fine. Patient is exceptionally tired, but denies CP, tachycardia, SOB. Objective Exam Vital Signs Date Time Temp Pulse Resp B/P (MAP) Pulse Ox O2 Delivery O2 Flow Rate FiO2 10/30/19 08:11 93 Room Air 10/30/19 07:58 36.6 88 17 127/77 (94) 93 Room Air 10/30/19 07:00 88 10/30/19 06:08 37.6 10/30/19 04:00 37.0 68 20 132/72 (92) 95 Room Air 10/30/19 01:00 91 10/30/19 00:39 37.6 10/29/19 23:46 37.6 10/29/19 23:46 36.6 82 18 113/71 (85) Room Air 10/29/19 21:28 95 Room Air 10/29/19 20:10 37.6 10/29/19 19:45 37.6 86 17 114/66 (82) 95 Room Air 10/29/19 19:39 37.2 10/29/19 19:00 90 10/29/19 16:03 37.2 84 17 109/62 (78) 94 Room Air 10/29/19 13:00 81 10/29/19 11:45 36.5 82 16 115/63 (80) 95 Room Air I & O 10/30/19 07:00 Intake Total 1210 ml Balance 1210 ml Capillary Refill : Less Than 3 SecondsLess Than 3 Seconds General Appearance: No Apparent Distress, Thin HEENT: No Scleral Icterus (L), No Scleral Icterus (R) Neck: Non Tender; No Carotid Bruit Respiratory: Lungs Clear, No Respiratory Distress Cardiovascular: Regular Rate, Rhythm, Normal Peripheral Pulses; No Tachycardia Peripheral Pulses: 2+ Carotid (R), 2+ Carotid (L), 2+ Dorsalis Pedis (R), 2+ Left Dors-Pedis (L), 2+ Radial Pulses (R), 2+ Radial Pulses (L) Gastrointestinal: distended; No guarding, No rebound, No tenderness Extremity: Non Tender; No Calf Tenderness Neurologic/Psychiatric: Disoriented (likely from medication); No Facial Droop Skin: Normal Color, Warm/Dry Lymphatic: No Adenopathy Results Lab Laboratory Tests 10/29/19 11:04: Lab Scanned Report Transfusion Reaction Form Microbiology 10/27/19 Blood Culture - Preliminary, Resulted No growth 10/27/19 Urine Culture - Final, Complete NO GROWTH Assessment/Plan Assessment/Plan Assessment/Plan epigastric abdominal pain pancreatitis metastatic breast cancer anemia-chronic disease clear liquids as tolerates Clinical Quality Measures DVT/VTE Risk/Contraindication: Risk Factor Score Per Nursin RFS Level Per Nursing on Admit: 2=Moderate RAMANA ARAUJO DO 10/30/19 1546: Subjective Time Seen by a Provider: 12:48 Subjective/Events-last exam Pt seen and examined, states she was able to keep down the soft food so far (mashed potatotes). States she is not walking very much. She also thinks her belly is more firm and distended, asking about draining ascitic fluid; states she has only done it once since she has been in the hospital. Normally does it twice daily. Review of Systems General: Fatigue, Malaise Pulmonary: Dyspnea; No Cough Cardiovascular: No: Chest Pain Gastrointestinal: Nausea, Vomiting, Abdominal Pain Objective Exam General Appearance: No Apparent Distress, Chronically ill HEENT: Moist Mucous Membranes; No Scleral Icterus (L), No Scleral Icterus (R) Respiratory: Lungs Clear, No Respiratory Distress Cardiovascular: Regular Rate, Rhythm, Normal Peripheral Pulses Gastrointestinal: non tender, distended, other (abdomen feel firm, not really tender) Skin: Normal Color, Warm/Dry Assessment/Plan Assessment/Plan Assessment/Plan Pancreatitis Ascites Metastatic Breast CA Pt encouraged to ambulate more, continue with soft diet and avoid the "sugary stuff" (which makes her nauseous). I told nurse to go ahead and let her drain abdomen twice daily again. Supervisory-Addendum Brief Verification & Attestation Participated in pt care: history, MDM, physical Personally performed: exam, history Care discussed with: Medical Student Procedures: n/a Verification and Attestation of Medical Student E/M Service A medical student performed and documented this service. I then reviewed and verified all information documented by the medical student and made modifications to such information, when appropriate. I personally performed a physical exam, medical decision making and then discussed any differences between the notes and made revisions as necessary to create one note. Ramana Araujo , 10/30/19 , 15:46 MARK PRIETO MED STUDENT Oct 30, 2019 10:03 RAMANA ARAUJO DO Oct 30, 2019 15:46
[2019-10-30] MEDS ORDERED: morphine INJ 4 MG/ML 1 ML (VIAL/SYRINGE) IV PRN (10:15)
[2019-10-30 10:37] LABS: HEMOGLOBIN 7.9 G/DL (11.5-16.0); MEAN PLATELET VOLUME 9.1 FL (7.4-10.4)
[2019-10-30 10:53] LABS: CHLORIDE 106 MMOL/L (98-107); POTASSIUM 4.6 MMOL/L (3.6-5.0); SODIUM 134 MMOL/L (135-145)
[2019-10-30 10:54] LABS: CALCIUM 9.3 MG/DL (8.5-10.1); GLUCOSE 102 MG/DL (70-105)
[2019-10-30 10:56] LABS: CARBON DIOXIDE 18 MMOL/L (21-32)
[2019-10-30 10:58] LABS: CREATININE SERUM 0.84 MG/DL (0.60-1.30); GFR ESTIMATED > 60
[2019-10-30 10:59] LABS: BUN/CREATININE RATIO 15
[2019-10-30 11:01] LABS: LIPASE 64 U/L (8-78)
[2019-10-30 11:31] VITALS: BP 118/71
[2019-10-30 16:02] VITALS: BP 126/64
--- NOTE | 2019-10-30 17:15 | NUR ---
DR. LANDRUM ASKED THIS RN TO REMOVE 2 LITERS TODAY FROM HER PLEURX DRAIN PLACED IN HER RIGHT LATERAL ANTERIOR ABDOMEN. THIS RN REMOVED ONE LITER OF YELLOW DRAINAGE FROM THIS DRAIN PER DR. LANDRUM'S ORDERS. THE PATIENT REQUESTED THAT THE 2ND LITER BE REMOVED LATER THIS EVENING. THIS RN WILL NOTIFY TINO BHARDWAJ OF NEED TO DRAIN LAST LITER BEFORE MIDNIGHT TONIGHT. Addendum: 10/30/19 at 1719 by LIBRADO BATISTA RN CULTURE PLACED BY THIS RN PER DR. LANDRUM'S ORDERS AND SENT TO LAB AT 1700 ON 10/30/2019
[2019-10-30] MEDS: ONDANSETRON 4 MG/2 ML (SDV) Z0FRAN IV PRN ×2 (18:00→21:21)
[2019-10-30] MEDS: morphine INJ 10 MG/ML 1ML (SYR OR VIAL) IV PRN ×2 (18:00→21:21)
--- NOTE | 2019-10-30 18:34 | NUR ---
PATIENT RANG LIGHT AT 1810 AND ASK IF THIS RN COULD REMOVE THE LAST LITER FROM HER ABDOMEN. THIS RN REMOVED PLEURX DRESSING AND REMOVED ANOTHER 750 MLS OF YELLOW DRAINAGE FROM THIS SITE. THIS RN WILL CONT. TO MONITOR THIS PATIENT. NOC SHIFT WILL NOT HAVE TO REMOVE THE LAST LITER THIS RN ALREADY DID SO.
--- NOTE | 2019-10-30 18:39 | NUR ---
UP IN HALLS WALKING ORDERED PER DR CARCAMO
[2019-10-30 19:15] VITALS: BP 110/70
[2019-10-30] MEDS: GABAPENTIN 300 MG (NEURONTIN) CAP PO SCH (21:20)
[2019-10-31] VITALS (7 sets, daily range): BP systolic 107–116; BP diastolic 66–95
[2019-10-31] MEDS: PIPERACILLIN/TAZOBACTAM (BULK) 4.5 GM in NS (IVPB) 100 ML IV SCH ×3 (03:00→18:17)
[2019-10-31] MEDS: LEVOTHYROXINE 25 MCG (LEVOTHROID) TAB PO SCH (05:07)
[2019-10-31] MEDS: ONDANSETRON 4 MG/2 ML (SDV) Z0FRAN IV PRN ×2 (05:22→21:30)
[2019-10-31] MEDS: D5 NS W/KCL 20 MEQ/L 1,000 ML IV SCH (05:22)
[2019-10-31] MEDS: morphine INJ 10 MG/ML 1ML (SYR OR VIAL) IV PRN ×4 (05:22→21:30)
[2019-10-31 05:29] LABS: HEMOGLOBIN 8.3 G/DL (11.5-16.0); MEAN PLATELET VOLUME 8.7 FL (7.4-10.4); RED CELL DISTRIBUTION WIDTH 18.3 % (10.0-14.5); WHITE BLOOD COUNT 7.8 10^3/uL (4.3-11.0)
[2019-10-31 05:53] LABS: BUN/CREATININE RATIO 14; CALCIUM 9.4 MG/DL (8.5-10.1); CARBON DIOXIDE 16 MMOL/L (21-32); CHLORIDE 108 MMOL/L (98-107); CREATININE SERUM 0.85 MG/DL (0.60-1.30); GFR ESTIMATED > 60; GLUCOSE 93 MG/DL (70-105); POTASSIUM 4.2 MMOL/L (3.6-5.0); SODIUM 135 MMOL/L (135-145)
[2019-10-31] MEDS: PANTOPRAZOLE 40 MG (PROTONIX) TAB PO SCH ×2 (08:54→21:31)
[2019-10-31] MEDS: FLUoxetine HCL 20 MG (PROzac) CAP PO SCH (08:54)
[2019-10-31] MEDS: ANASTROZOLE 1 MG TAB (ARIMIDEX) PO SCH ×2 (08:54→21:31)
[2019-10-31] MEDS: FLUCONAZOLE 100 MG/50 ML IVPB IV SCH ×2 (08:55)
--- NOTE | 2019-10-31 08:55 | NUR ---
MEDICAL STUDENT IN ROOM THIS A.M. AND REMOVED RIGHT LATERAL DRESSING (PLEURX DRAIN TUBE) THIS RN THEN REMOVED 750 MLS OF YELLOW DRAINAGE FROM HER ABDOMEN. DRESSING CHANGED AND PLEURX DRAIN COVERED AT THIS TIME. THIS RN WILL CONT. TO MONITOR THIS PATIENT.
--- NOTE | 2019-10-31 09:46 | Progress Note - Surgery ---
MARK PRIETO MED STUDENT 10/31/19 0946: Subjective Date Seen by a Provider: Oct 31, 2019 Time Seen by a Provider: 07:45 Subjective/Events-last exam Patient states she is currently doing well, but notes 2 episodes of bilious vomiting over the night. She reports that she gets nauseous when being given morphine or when eating certain foods (unable to eat most solid foods, can tolerate mashed potatoes but nothing sweet/no jello) which brought on last nights episodes. She states abdominal pain has improved slightly and is adequately managed by pain medication, nausea is controlled by Zofran. Patient reports significant relief yesterday after her second Pleurx drainage for the day. She states there is still swelling in her legs but it is improved from yesterday. Denies headache, CP, tachycardia, SOB, wheezing, dizziness, numbness and tingling. Patient states she has walked to and from the bathroom. Objective Exam Vital Signs Date Time Temp Pulse Resp B/P (MAP) Pulse Ox O2 Delivery O2 Flow Rate FiO2 10/31/19 07:35 36.8 89 16 113/69 (84) 95 Room Air 10/31/19 06:03 36.8 10/31/19 05:22 36.8 10/31/19 04:00 36.8 88 20 116/73 (87) 97 Room Air 10/31/19 01:06 37.4 88 16 114/78 (90) 97 Room Air 10/31/19 01:00 83 10/31/19 00:00 37.2 92 16 110/70 (83) 97 Room Air 10/30/19 22:00 37.4 10/30/19 21:21 37.2 10/30/19 20:00 97 Room Air 10/30/19 19:15 37.2 92 16 110/70 (83) 97 Room Air 10/30/19 19:00 95 10/30/19 16:02 37.4 83 16 126/64 (84) 98 Room Air 10/30/19 13:07 81 10/30/19 11:31 37.0 82 17 118/71 (87) 97 Room Air I & O 10/31/19 07:00 Intake Total 1300 ml Balance 1300 ml Capillary Refill : Less Than 3 SecondsLess Than 3 Seconds General Appearance: No Apparent Distress; No Anxious HEENT: No Scleral Icterus (L), No Scleral Icterus (R) Neck: Non Tender; No Carotid Bruit Respiratory: Lungs Clear, No Accessory Muscle Use, No Respiratory Distress Cardiovascular: Regular Rate, Rhythm, Normal Peripheral Pulses Peripheral Pulses: 2+ Carotid (R), 2+ Carotid (L), 2+ Dorsalis Pedis (R), 2+ Left Dors-Pedis (L), 2+ Radial Pulses (R), 2+ Radial Pulses (L) Gastrointestinal: distended (improved from yesterday), tenderness (mild on palpation), other (UNABLE TO DETERMINE IF ORGANOMEGALY IS PRESENT) Extremity: Non Tender; No Calf Tenderness; Pedal Edema (improved from yesterday) Neurologic/Psychiatric: Alert, Normal Mood/Affect; No Facial Droop Skin: Normal Color, Warm/Dry Results Lab Laboratory Tests 10/30/19 10:28: White Blood Count 8.0, Red Blood Count 2.93L, Hemoglobin 7.9L, Hematocrit 27L, Mean Corpuscular Volume 91, Mean Corpuscular Hemoglobin 27, Mean Corpuscular Hemoglobin Concent 30L, Red Cell Distribution Width 18.0H, Platelet Count 438H, Mean Platelet Volume 9.1, Sodium Level 134L, Potassium Level 4.6, Chloride Level 106, Carbon Dioxide Level 18L, Anion Gap 10, Blood Urea Nitrogen 13, Creatinine 0.84, Estimat Glomerular Filtration Rate > 60, BUN/Creatinine Ratio 15, Glucose Level 102, Calcium Level 9.3, Lipase 64 10/31/19 05:15: White Blood Count 7.8, Red Blood Count 3.07L, Hemoglobin 8.3L, Hematocrit 28L, Mean Corpuscular Volume 91, Mean Corpuscular Hemoglobin 27, Mean Corpuscular Hemoglobin Concent 30L, Red Cell Distribution Width 18.3H, Platelet Count 418H, Mean Platelet Volume 8.7, Sodium Level 135, Potassium Level 4.2, Chloride Level 108H, Carbon Dioxide Level 16L, Anion Gap 11, Blood Urea Nitrogen 12, Creatinine 0.85, Estimat Glomerular Filtration Rate > 60, BUN/Creatinine Ratio 14, Glucose Level 93, Calcium Level 9.4 Microbiology 10/27/19 Blood Culture - Preliminary, Resulted No growth 10/27/19 Urine Culture - Final, Complete NO GROWTH Assessment/Plan Assessment/Plan Assessment/Plan Pancreatitis Ascites Metastatic Breast CA Clinical Quality Measures DVT/VTE Risk/Contraindication: Risk Factor Score Per Nursin RFS Level Per Nursing on Admit: 2=Moderate RAMANA ARAUJO DO 10/31/19 1124: Subjective Time Seen by a Provider: 09:56 Subjective/Events-last exam Pt seen and examined, states she is feeling much better and has not had anymore nausea. She thinks nausea went away when she was able to drain second liter of ascitic fluid. She is tolerating diet. Review of Systems Pulmonary: No Dyspnea, No Cough Cardiovascular: No: Chest Pain, Palpitations Gastrointestinal: No: Nausea, Vomiting Objective Exam General Appearance: No Apparent Distress, Other (Pt appears to have better color, looks healthier than yesterday) Respiratory: Lungs Clear, No Accessory Muscle Use, No Respiratory Distress Cardiovascular: Regular Rate, Rhythm, No Murmur Gastrointestinal: non tender, distended (improved from yesterday), other (Pleur-x catheter in place) Assessment/Plan Assessment/Plan Assessment/Plan Pancreatitis Ascites Metastatic Breast CA Pt encouraged to eat more protein, ambulate, continue draining ascitic fluid BID. Hopefully she can get out of hospital tomorrow if she continues to improve. Supervisory-Addendum Brief Verification & Attestation Participated in pt care: history, MDM, physical Personally performed: exam, history, MDM Care discussed with: Medical Student Procedures: n/a Verification and Attestation of Medical Student E/M Service A medical student performed and documented this service. I then reviewed and verified all information documented by the medical student and made modifications to such information, when appropriate. I personally performed a physical exam, medical decision making and then discussed any differences between the notes and made revisions as necessary to create one note. Ramana Araujo , 10/31/19 , 11:24 MARK PRIETO MED STUDENT Oct 31, 2019 09:46 RAMANA ARAUJO DO Oct 31, 2019 11:24
--- NOTE | 2019-10-31 10:49 | Progress Note - Hospitalist ---
Subjective HPI/CC On Admission Date Seen by Provider: Oct 31, 2019 Time Seen by Provider: 10:47 Pt is a 59yoCF with a PMH of metastatic breast cancer to spine, pelvis, and omentum who presented to the ER due to abdominal pain and vomiting. She had her ureteral stent replaced 1 week ago and then was diagnosed with a UTI following that. She was treated with oral antibiotics (cefidnir) but has not done well since then. Two days ago she developed abdominal pain and nausea. She has had poor oral intake but was able to eat a sandwich yesterday. This worsened her pain and then she vomited it up. Her reports she has also had worsening ascites and they have been draining over 2L of fluid from her abdomen, up from 1L. She states she is very nauseated and the Phenergan makes her sleepy. She was also supposed to start a new chemotherapy with Dr Gregory because her last chemo was not longer working. She was found to have pancreatitis and was admitted for symptomatic management. Subjective/Events-last exam Pt reports feeling better today since draining ascites. Tolerating diet better. Plan to drain ascites again this afternoon. Complained of dysuria to nurse as well. Objective Exam Vital Signs Vital Signs Date Time Temp Pulse Resp B/P (MAP) Pulse Ox O2 Delivery O2 Flow Rate FiO2 10/31/19 07:35 36.8 89 16 113/69 (84) 95 Room Air Capillary Refill : Less Than 3 SecondsLess Than 3 Seconds General Appearance: No Apparent Distress, Chronically ill, Cachetic Respiratory: Lungs Clear, No Respiratory Distress Cardiovascular: Regular Rate, Rhythm, No Murmur Gastrointestinal: Normal Bowel Sounds, Non Tender Neurologic/Psychiatric: Alert, Oriented x3 Results/Procedures Lab Laboratory Tests 10/31/19 05:15 Patient resulted labs reviewed. Imaging: Reviewed Imaging Report Assessment/Plan Assessment and Plan Assess & Plan/Chief Complaint Pancreatitis Metastatic breast cancer Large volume ascites Continue current diet, tolerating well DC IVF Continue morphine and antiemetics for symptom control Continue home meds as able Fever- resolved Recent UTI Ureteral stent Continue Zosyn due to previous culture results from September Urine and blood culture with no growth Await culture results of ascites Fluconazole ordered as well Anemia due to chronic disease Hgb up to 8.3 today Hypothyroidism Cont synthroid DVT ppx: SCDs due to anemia Diagnosis/Problems Diagnosis/Problems (1) Metastatic breast cancer Status: Acute (2) Intractable nausea and vomiting Status: Chronic (3) Pancreatitis Qualifiers: Chronicity: acute Pancreatitis type: other Acute pancreatitis complication: no infection or necrosis Qualified Codes: K85.80 - Other acute pancreatitis without necrosis or infection (4) Intractable abdominal pain Status: Acute (5) Chronic anemia Status: Acute (6) Peritoneal carcinomatosis Status: Chronic (7) Ascites Status: Acute Qualifiers: Ascites type: malignant Qualified Codes: R18.0 - Malignant ascites Clinical Quality Measures DVT/VTE Risk/Contraindication: Risk Factor Score Per Nursin RFS Level Per Nursing on Admit: 2=Moderate ZAIN LANDRUM MD Oct 31, 2019 10:49
[2019-10-31 13:07] LABS: BILIRUBIN,URINE NEGATIVE (NEGATIVE); CLARITY,URINE CLEAR; COLOR,URINE YELLOW; GLUCOSE, URINE (UA) NEGATIVE (NEGATIVE); KETONES,URINE NEGATIVE (NEGATIVE); LEUKOCYTE ESTERASE ,URINE TRACE (NEGATIVE); NITRITE,URINE NEGATIVE (NEGATIVE); PH,URINE 5.5 (5-9); PROTEIN,URINE TRACE (NEGATIVE)
[2019-10-31 13:15] LABS: BACTERIA,URINE FEW /HPF; SQUAMOUS EPITHELIAL CELL,UR 0-2 /HPF; WBC,URINE 0-2 /HPF
[2019-10-31 13:16] LABS: URIC ACID CRYSTALS,URINE FEW /LPF
[2019-10-31] MEDS: LACTOBACILLUS ACIDOPHILUS (PROBIOTIC) CAPSULE PO SCH ×2 (14:05→17:42)
[2019-10-31] MEDS: PHENAZOPYRIDINE 100 MG (PYRIDIUM) TABLET PO SCH ×2 (14:05→18:17)
--- NOTE | 2019-10-31 18:00 | NUR ---
1000 MLS OF YELLOW DRAINAGE REMOVED FROM HER PLEURX DRAIN PER HER REQUEST AT THIS TIME. PATIENT TOLERATED WELL. THIS RN WILL CONT. TO MONITOR THIS PATIENT THROUGHOUT THE REMAINDER OF THIS SHIFT.
[2019-10-31] MEDS: PROMETHAZINE INJ 25 MG/ML (PHENERGAN) AMP IV PRN (18:37)
[2019-10-31] MEDS: GABAPENTIN 300 MG (NEURONTIN) CAP PO SCH (21:31)
[2019-11-01] MEDS: PROMETHAZINE INJ 25 MG/ML (PHENERGAN) AMP IV PRN ×5 (00:09→20:35)
[2019-11-01] MEDS: ONDANSETRON 4 MG/2 ML (SDV) Z0FRAN IV PRN ×4 (00:10→23:30)
[2019-11-01] MEDS: morphine INJ 10 MG/ML 1ML (SYR OR VIAL) IV PRN ×4 (00:10→20:35)
[2019-11-01 00:54] VITALS: BP 113/75
[2019-11-01] MEDS: PIPERACILLIN/TAZOBACTAM (BULK) 4.5 GM in NS (IVPB) 100 ML IV SCH ×3 (03:00→18:07)
[2019-11-01 04:00] VITALS: BP 106/69
[2019-11-01] MEDS: LEVOTHYROXINE 25 MCG (LEVOTHROID) TAB PO SCH (05:38)
[2019-11-01] MEDS: oxyCODONE/APAP 5/325MG (PERCOCET 5) TABLET PO PRN ×2 (05:45→23:26)
[2019-11-01 08:00] VITALS: BP 131/64
--- NOTE | 2019-11-01 09:25 | NUR ---
1000 ML TAKEN FROM HER ABDOMEN VIA PLEURX DRAIN
[2019-11-01] MEDS: PANTOPRAZOLE 40 MG (PROTONIX) TAB PO SCH ×2 (10:24→20:33)
[2019-11-01] MEDS: FLUoxetine HCL 20 MG (PROzac) CAP PO SCH (10:24)
[2019-11-01] MEDS: ANASTROZOLE 1 MG TAB (ARIMIDEX) PO SCH ×2 (10:24→20:47)
[2019-11-01] MEDS: FLUCONAZOLE 100 MG/50 ML IVPB IV SCH ×2 (10:24)
[2019-11-01] MEDS: LACTOBACILLUS ACIDOPHILUS (PROBIOTIC) CAPSULE PO SCH ×3 (10:24→18:07)
[2019-11-01] MEDS: PHENAZOPYRIDINE 100 MG (PYRIDIUM) TABLET PO SCH ×3 (10:54→20:33)
[2019-11-01 12:00] VITALS: BP 112/70
--- NOTE | 2019-11-01 12:32 | Progress Note - Hospitalist ---
Subjective HPI/CC On Admission Date Seen by Provider: Nov 01, 2019 Time Seen by Provider: 09:55 Pt is a 59yoCF with a PMH of metastatic breast cancer to spine, pelvis, and omentum who presented to the ER due to abdominal pain and vomiting. She had her ureteral stent replaced 1 week ago and then was diagnosed with a UTI following that. She was treated with oral antibiotics (cefidnir) but has not done well since then. Two days ago she developed abdominal pain and nausea. She has had poor oral intake but was able to eat a sandwich yesterday. This worsened her pain and then she vomited it up. Her reports she has also had worsening ascites and they have been draining over 2L of fluid from her abdomen, up from 1L. She states she is very nauseated and the Phenergan makes her sleepy. She was also supposed to start a new chemotherapy with Dr Gregory because her last chemo was not longer working. She was found to have pancreatitis and was admitted for symptomatic management. Subjective/Events-last exam She is feeling nauseous and vomiting this morning. She denies any fevers or chills. She denies any abdominal pain. She understands that her symptoms are due to progression of her cancer. She says that her goal is to get through this and resume chemotherapy. She is tearful. She understands that things might not go as planned and is willing to talk with palliative care. Objective Exam Vital Signs Vital Signs Date Time Temp Pulse Resp B/P (MAP) Pulse Ox O2 Delivery O2 Flow Rate FiO2 11/01/19 12:00 35.6 108 18 112/70 (84) 95 Room Air Capillary Refill : Less Than 3 SecondsLess Than 3 Seconds General Appearance: No Apparent Distress, Anxious, Chronically ill Respiratory: Lungs Clear, Normal Breath Sounds, No Respiratory Distress Cardiovascular: Regular Rate, Rhythm, No Murmur Gastrointestinal: Normal Bowel Sounds, Distended, Tenderness Extremity: Normal Inspection, Non Tender Neurologic/Psychiatric: Alert, Oriented x3, Other (Tearful) Skin: Normal Color, Warm/Dry Results/Procedures Lab Patient resulted labs reviewed. Imaging: Reviewed Imaging Report Assessment/Plan Assessment and Plan Assess & Plan/Chief Complaint Metastatic breast cancer Malignant ascites Poor prognosis Continue morphine and antiemetics for symptom control Continue home meds as able Continue intermittent drainage via Pleurx Consult palliative care Recent UTI Ureteral stent Continue Zosyn due to previous culture results from September Urine and blood culture with no growth Await culture results of ascites Anemia due to chronic disease Hemoglobin stable Hypothyroidism Cont synthroid DVT ppx: Lovenox Pancreatitis, resolved Fever, resolved Diagnosis/Problems Diagnosis/Problems (1) Metastatic breast cancer Status: Acute (2) Intractable nausea and vomiting Status: Chronic (3) Pancreatitis Status: Resolved Qualifiers: Chronicity: acute Pancreatitis type: other Acute pancreatitis complication: no infection or necrosis Qualified Codes: K85.80 - Other acute pancreatitis without necrosis or infection Resolution Date/Time: 11/01/19 @ 12:32 (4) Ascites Status: Chronic Qualifiers: Ascites type: malignant Qualified Codes: R18.0 - Malignant ascites Clinical Quality Measures DVT/VTE Risk/Contraindication: Risk Factor Score Per Nursin RFS Level Per Nursing on Admit: 2=Moderate TASHA SMITH MD Nov 01, 2019 12:32
[2019-11-01] MEDS: ALPRAZolam 0.25 MG (XANAX) TAB PO SCH ×2 (12:33→20:33)
[2019-11-01] MEDS: ENOXAPARIN 40 MG/0.4 ML (LOVENOX) SYR SC SCH (12:34)
--- NOTE | 2019-11-01 13:52 | NUR ---
PALLIATIVE CARE RN in to see patient. I spoke to she and her , attempting to answer their questions regarding the difference between Palliative Care and Hospice. They were understanding. I spoke to them about the [facility] program through [facility], but unfortunately they live in [place], [place] so they cannot access this program. After researching Hospice agencies that offer a Palliative Program pre-hospice, I found that [facility] is the only hospice that offers a program such as this. They already utilize [facility] for HHC. is very attentive to the patient. Will continue to follow and offer support as needed.
[2019-11-01 15:13] VITALS: BP 104/69
--- NOTE | 2019-11-01 17:00 | NUR ---
rePORT FROM LIBRADO JIMÉNEZ, WILL ASSUME CARE OF PATIENT AT THIS TIME.
[2019-11-01 19:18] VITALS: BP 122/74
--- NOTE | 2019-11-01 20:29 | Progress Note - Surgery ---
Subjective Date Seen by a Provider: Nov 01, 2019 Time Seen by a Provider: 08:35 Subjective/Events-last exam Patient feeling more bloated and nauseated. Pain no change. Going to drain pleur-x in a few. She is passing some flatus. Denies fever sweats chills shortness of breath or chest pain at this time. Objective Exam Vital Signs Date Time Temp Pulse Resp B/P (MAP) Pulse Ox O2 Delivery O2 Flow Rate FiO2 11/01/19 19:18 38.0 102 16 122/74 (90) 98 Room Air 11/01/19 15:13 37.2 88 16 104/69 (81) 95 Room Air 11/01/19 12:00 35.6 108 18 112/70 (84) 95 Room Air 11/01/19 08:00 35.9 94 16 131/64 (86) 93 Room Air 11/01/19 08:00 97 Room Air 11/01/19 06:40 36.8 11/01/19 06:40 36.8 11/01/19 05:46 36.8 11/01/19 05:45 36.8 11/01/19 04:00 36.8 89 18 106/69 (81) 97 Room Air 11/01/19 00:54 36.8 99 18 113/75 (88) 93 Room Air 11/01/19 00:51 36.6 11/01/19 00:10 36.6 10/31/19 22:00 36.6 10/31/19 21:30 36.6 I & O 11/01/19 07:00 Intake Total 1350 ml Balance 1350 ml Capillary Refill : Less Than 3 SecondsLess Than 3 Seconds General Appearance: No Apparent Distress, Anxious, Chronically ill HEENT: PERRL/EOMI; No Scleral Icterus (L), No Scleral Icterus (R) Neck: Non Tender, Supple; No Carotid Bruit Respiratory: Chest Non Tender, No Accessory Muscle Use, No Respiratory Distress Cardiovascular: Regular Rate, Rhythm, No Murmur Peripheral Pulses: 2+ Carotid (R), 2+ Carotid (L), 2+ Dorsalis Pedis (R), 2+ Left Dors-Pedis (L), 2+ Radial Pulses (R), 2+ Radial Pulses (L) Gastrointestinal: non tender, distended, other (Pleur-x catheter in place) Extremity: Normal Inspection, Non Tender Neurologic/Psychiatric: Alert, Oriented x3, Other (Tearful) Skin: Normal Color, Warm/Dry Lymphatic: No Adenopathy Results Lab Microbiology 10/31/19 Urine Culture - Final, Complete YEAST 10/30/19 Gram Stain - Final, Resulted 10/30/19 Body Fluid Culture - Preliminary, Resulted Staphylococcus epidermidis 10/27/19 Blood Culture - Final, Complete No growth Assessment/Plan Assessment/Plan Assessment/Plan Pancreatitis Ascites Metastatic Breast CA diet as tolerates symptomatic control drain pleur-x as needed no surgical intervention Clinical Quality Measures DVT/VTE Risk/Contraindication: Risk Factor Score Per Nursin RFS Level Per Nursing on Admit: 2=Moderate NICKIE PERDOMO DO Nov 01, 2019 20:29
[2019-11-01] MEDS: GABAPENTIN 300 MG (NEURONTIN) CAP PO SCH (20:33)
--- NOTE | 2019-11-01 23:10 | NUR ---
500 ML CLEAR LIQUID FLUID DRAINED FROM PLEURX DRAIN PER PT REQUEST AT THIS TIME. PT TOLERATED WELL, WILL CONTINUE TO MONITOR Addendum: 11/01/19 at 2333 by JAMES DELGADO RN 550 ML CLEAR LIQUID FLUID DRAINED FROM PLEURX DRAIN PER PT REQUEST AT THIS TIME. PT TOLERATED WELL, WILL CONTINUE TO MONITOR
[2019-11-02 00:07] VITALS: BP 99/65
[2019-11-02] MEDS: PIPERACILLIN/TAZOBACTAM (BULK) 4.5 GM in NS (IVPB) 100 ML IV SCH (03:27)
[2019-11-02] MEDS: ALPRAZolam 0.25 MG (XANAX) TAB PO SCH (04:33)
[2019-11-02] MEDS: morphine INJ 10 MG/ML 1ML (SYR OR VIAL) IV PRN (04:33)
[2019-11-02 04:43] VITALS: BP 104/68
[2019-11-02 04:47] LABS: BASOPHILS % (AUTO) 0 % (0-10); EOSINOPHILS # (AUTO) 0.1 10^3/uL (0.0-0.3); EOSINOPHILS % (AUTO) 1 % (0-10); HEMATOCRIT 27 % (35-52); HEMOGLOBIN 8.2 G/DL (11.5-16.0); LYMPHOCYTES # (AUTO) 0.8 X 10^3 (1.0-4.0); LYMPHOCYTES % (AUTO) 5 % (12-44); MEAN CORPUSCULAR HEMOGLOBIN 28 PG (25-34); MEAN CORPUSCULAR HGB CONC 31 G/DL (32-36); MEAN CORPUSCULAR VOLUME 90 FL (80-99); MEAN PLATELET VOLUME 9.1 FL (7.4-10.4); MONOCYTES # (AUTO) 0.9 X 10^3 (0.0-1.0); MONOCYTES % (AUTO) 5 % (0-12); NEUTROPHILS % (AUTO) 90 % (42-75); PLATELET COUNT 437 10^3/uL (130-400); RED CELL DISTRIBUTION WIDTH 18.3 % (10.0-14.5); WHITE BLOOD COUNT 18.8 10^3/uL (4.3-11.0)
[2019-11-02 04:51] LABS: CHLORIDE 104 MMOL/L (98-107); POTASSIUM 4.2 MMOL/L (3.6-5.0); SODIUM 131 MMOL/L (135-145)
[2019-11-02 04:52] LABS: CALCIUM 9.4 MG/DL (8.5-10.1); GLUCOSE 85 MG/DL (70-105)
[2019-11-02 04:54] LABS: CARBON DIOXIDE 15 MMOL/L (21-32)
[2019-11-02 04:56] LABS: CREATININE SERUM 0.94 MG/DL (0.60-1.30); GFR ESTIMATED > 60
[2019-11-02 04:57] LABS: BUN/CREATININE RATIO 18
[2019-11-02 05:18] LABS: ANISOCYTOSIS SLIGHT; BAND NEUTROPHILS 5 %; CRENATED RBC SLIGHT; EOSINOPHILS % (MANUAL) 1 %; LYMPHOCYTES % (MANUAL) 6 %; MONOCYTES % (MANUAL) 2 %; NEUTROPHILS % (MANUAL) 86 %
[2019-11-02] MEDS: LEVOTHYROXINE 25 MCG (LEVOTHROID) TAB PO SCH (06:06)
--- NOTE | 2019-11-02 07:31 | Progress Note - Surgery ---
Subjective Date Seen by a Provider: Nov 02, 2019 Time Seen by a Provider: 06:50 Subjective/Events-last exam Pt was drowsy this morning due to pain medication and just waking up. Pain and ascites symptoms controlled. Claims she was able to eat yesterday with no issues. Denies n/v, fever, chest pain, sob at this time. Objective Exam Vital Signs Date Time Temp Pulse Resp B/P (MAP) Pulse Ox O2 Delivery O2 Flow Rate FiO2 11/02/19 04:43 36.6 92 20 104/68 (80) 95 Room Air 11/02/19 00:07 37.6 100 18 99/65 (76) 98 Room Air 11/01/19 20:30 Room Air 11/01/19 19:50 37.0 11/01/19 19:18 38.0 102 16 122/74 (90) 98 Room Air 11/01/19 15:13 37.2 88 16 104/69 (81) 95 Room Air 11/01/19 12:00 35.6 108 18 112/70 (84) 95 Room Air 11/01/19 08:00 35.9 94 16 131/64 (86) 93 Room Air 11/01/19 08:00 97 Room Air I & O 11/02/19 07:00 Intake Total 910 ml Output Total 550 ml Balance 360 ml Capillary Refill : Less Than 3 SecondsLess Than 3 Seconds General Appearance: No Apparent Distress, Anxious, Chronically ill HEENT: PERRL/EOMI; No Scleral Icterus (L), No Scleral Icterus (R) Neck: Non Tender, Supple; No Carotid Bruit Respiratory: Chest Non Tender, No Accessory Muscle Use, No Respiratory Distress Cardiovascular: Regular Rate, Rhythm, No Murmur Peripheral Pulses: 2+ Carotid (R), 2+ Carotid (L), 2+ Dorsalis Pedis (R), 2+ Left Dors-Pedis (L), 2+ Radial Pulses (R), 2+ Radial Pulses (L) Gastrointestinal: non tender, distended, other (Pleur-x catheter in place) Extremity: Normal Inspection, Non Tender Neurologic/Psychiatric: Alert, Oriented x3, Other (Tearful) Skin: Normal Color, Warm/Dry Lymphatic: No Adenopathy Results Lab Laboratory Tests 11/02/19 04:25: White Blood Count 18.8H, Red Blood Count 2.97L, Hemoglobin 8.2L, Hematocrit 27L, Mean Corpuscular Volume 90, Mean Corpuscular Hemoglobin 28, Mean Corpuscular Hemoglobin Concent 31L, Red Cell Distribution Width 18.3H, Platelet Count 437H, Mean Platelet Volume 9.1, Neutrophils (%) (Auto) 90H, Lymphocytes (%) (Auto) 5L, Monocytes (%) (Auto) 5, Eosinophils (%) (Auto) 1, Basophils (%) (Auto) 0, Neutrophils # (Auto) 17.0H, Lymphocytes # (Auto) 0.8L, Monocytes # (Auto) 0.9, Eosinophils # (Auto) 0.1, Basophils # (Auto) 0.0, Neutrophils % (Manual) 86, Lymphocytes % (Manual) 6, Monocytes % (Manual) 2, Eosinophils % (Manual) 1, Band Neutrophils 5, Anisocytosis SLIGHT, Crenated Cell SLIGHT, Sodium Level 131L, Potassium Level 4.2, Chloride Level 104, Carbon Dioxide Level 15L, Anion Gap 12, Blood Urea Nitrogen 17, Creatinine 0.94, Estimat Glomerular Filtration Rate > 60, BUN/Creatinine Ratio 18, Glucose Level 85, Calcium Level 9.4 Microbiology 10/31/19 Urine Culture - Final, Complete YEAST 10/30/19 Gram Stain - Final, Resulted 10/30/19 Body Fluid Culture - Preliminary, Resulted Staphylococcus epidermidis 10/27/19 Blood Culture - Final, Complete No growth Assessment/Plan Assessment/Plan Assessment/Plan Pancreatitis Ascites Metastatic Breast CA diet as tolerates symptomatic control drain pleur-x as needed no surgical intervention Clinical Quality Measures DVT/VTE Risk/Contraindication: Risk Factor Score Per Nursin RFS Level Per Nursing on Admit: 2=Moderate SHALINI PHILLIPS MED STUDENT Nov 02, 2019 07:31
[2019-11-02] MEDS ORDERED: ONDANSETRON 4 MG (ZOFRAN) ORAL DISSOLVE TAB PO PRN (07:45)
[2019-11-02 08:00] VITALS: BP 97/64
[2019-11-02] MEDS ORDERED: morphine ER 15 MG (MS CONTIN) TAB PO SCH (09:00)
[2019-11-02] MEDS ORDERED: ALPRAZolam 0.25 MG (XANAX) TAB PO SCH (09:00)
[2019-11-02] MEDS ORDERED: FLUoxetine HCL 20 MG (PROzac) CAP PO SCH (09:00)
[2019-11-02] MEDS: LACTOBACILLUS ACIDOPHILUS (PROBIOTIC) CAPSULE PO SCH (09:31)
[2019-11-02] MEDS: PHENAZOPYRIDINE 100 MG (PYRIDIUM) TABLET PO SCH (09:32)
[2019-11-02] MEDS: PANTOPRAZOLE 40 MG (PROTONIX) TAB PO SCH (09:32)
[2019-11-02] MEDS: ANASTROZOLE 1 MG TAB (ARIMIDEX) PO SCH (09:33)
[2019-11-02] MEDS ORDERED: CEFD300C3 PO (10:31)
[2019-11-02] MEDS ORDERED: ALPR0.25 PO (10:31)
[2019-11-02] MEDS ORDERED: CEFDINIR 300 MG (OMNICEF) CAP PO NR (11:00)
--- NOTE | 2019-11-02 11:01 | NUR ---
Pt being discharged home today. She has been followed by [facility] and would like them to resume services. Pt [facility] app[facility] at [facility] Pt has a front wheel walker at home and couldn't think of any additional equipment needs. At the request of contacted [facility] office and requested they call pt as they are needing additional Plurex supplies.Will follow at the [facility].
--- NOTE | 2019-11-02 11:17 | Discharge Summary ---
Discharge Summary Hospital Course Was the Problem List Reviewed?: Yes Problems/Dx: (1) Metastatic breast cancer Status: Acute (2) Intractable nausea and vomiting Status: Chronic (3) Pancreatitis Status: Resolved Qualifiers: Qualified Codes: K85.80 - Other acute pancreatitis without necrosis or infection (4) Ascites Status: Chronic Qualifiers: Qualified Codes: R18.0 - Malignant ascites Hospital Course Date of Admission: Oct 27, 2019 at 02:50 Admission Diagnosis : intractable nausea and vomiting Family Physician/Provider: Rodrigue Orellana DO Date of Discharge: 11/02/19 Discharge Diagnosis: Metastatic breast cancer, pancreatitis Hospital Course: Macey Decker is a 59-year-old female with metastatic breast cancer who presented with intractable nausea and vomiting. She has extensive metastases with known peritoneal carcinomatosis. She was found to have pancreatitis likely due to her metastases. She was treated medically with fluids and bowel rest. Her symptoms improved. She has a Pleurx catheter in place due to recurrent malignant ascites. This was cultured and grew staph epidermidis. She was given a course of Omnicef. She was started on a benzodiazepine to help with her nausea and vomiting. She was evaluated by palliative care and given information regarding [facility]. She is scheduled to follow-up with her oncologist in about a week. She should resume her home health care. Labs and Pending Lab Test: Laboratory Tests 11/02/19 04:25: White Blood Count 18.8H, Red Blood Count 2.97L, Hemoglobin 8.2L, Hematocrit 27L, Mean Corpuscular Volume 90, Mean Corpuscular Hemoglobin 28, Mean Corpuscular Hemoglobin Concent 31L, Red Cell Distribution Width 18.3H, Platelet Count 437H, Mean Platelet Volume 9.1, Neutrophils (%) (Auto) 90H, Lymphocytes (%) (Auto) 5L, Monocytes (%) (Auto) 5, Eosinophils (%) (Auto) 1, Basophils (%) (Auto) 0, Neutrophils # (Auto) 17.0H, Lymphocytes # (Auto) 0.8L, Monocytes # (Auto) 0.9, Eosinophils # (Auto) 0.1, Basophils # (Auto) 0.0, Neutrophils % (Manual) 86, Lymphocytes % (Manual) 6, Monocytes % (Manual) 2, Eosinophils % (Manual) 1, Band Neutrophils 5, Anisocytosis SLIGHT, Crenated Cell SLIGHT, Sodium Level 131L, Potassium Level 4.2, Chloride Level 104, Carbon Dioxide Level 15L, Anion Gap 12, Blood Urea Nitrogen 17, Creatinine 0.94, Estimat Glomerular Filtration Rate > 60, BUN/Creatinine Ratio 18, Glucose Level 85, Calcium Level 9.4, Procalcitonin 0.54H Microbiology 10/31/19 Urine Culture - Final, Complete YEAST 10/30/19 Gram Stain - Final, Resulted 10/30/19 Body Fluid Culture - Preliminary, Resulted Staphylococcus epidermidis 10/27/19 Blood Culture - Final, Complete No growth Home Meds Active Xanax (Alprazolam) 0.25 Mg Tablet 0.25 Mg PO BID 30 Days Cefdinir 300 Mg Capsule 300 Mg PO BID 7 Days Reported Morphine Sulfate ER (Morphine Sulfate) 15 Mg Tablet.er 15 Mg PO Q8 -12H Arimidex (Anastrozole) 1 Mg Tablet 1 Mg PO BID Zolpidem Tartrate ER (Zolpidem Tartrate) 12.5 Mg Tab.mphase 12.5 Mg PO HS Endocet 5-325 Tablet (Oxycodone HCl/Acetaminophen) 1 Each Tablet 1-2 Each PO Q8H PRN Levothyroxine Sodium 25 Mcg Tablet 25 Mcg PO DAILY Tylenol Extra Strength (Acetaminophen) 500 Mg Tablet 1,000 Mg PO Q8H PRN Ibuprofen 200 Mg Tablet 400 Mg PO Q8H PRN Lidocaine HCl 5 Ml Jel.pf.geni 1 Applic UR TID PRN USE 1 SYRINGE VIA URETHRA INTO BLADDER NEEDED FOR SEVERE BLADDER PAIN. Sudafed (Pseudoephedrine HCl) 30 Mg Tablet 30-60 Mg PO Q4H PRN Fluticasone Propionate 16 Gm [place].susp 1 [place] NSEACH BID PRN Neurontin (Gabapentin) 300 Mg Capsule 300 Mg PO HS LAST FILLED 06-19-2019 #90 Omeprazole 40 Mg Capsule.dr 40 Mg PO BID Fluoxetine HCl 40 Mg Capsule 40 Mg PO DAILY Benadryl (Diphenhydramine HCl) 25 Mg Capsule 50 Mg PO Q4H PRN Dextroamp-Amphet ER 30 mg Cap (Dextroamphetamine/Amphetamine) 30 Mg Cap.er.24h 30 Mg PO DAILY Assessment/Pt Instructions take medications as prescribed. Complete her course of antibiotics. Follow up with Dr. Stone as scheduled. Discharge Planning: <30 minutes discharge planning Discharge Instructions Discharge Diet: No Restrictions Activity as Tolerated: Yes Consultations oncology Discharge Physical Examination Vital Signs Vital Signs Date Time Temp Pulse Resp B/P (MAP) Pulse Ox O2 Delivery O2 Flow Rate FiO2 11/02/19 08:00 36.5 80 20 97/64 (75) 96 Room Air General Appearance: No Apparent Distress, Chronically ill HEENT: PERRL/EOMI, Pharynx Normal Respiratory: Lungs Clear, Normal Breath Sounds, No Respiratory Distress Cardiovascular: Regular Rate, Rhythm, No Murmur Gastrointestinal: Normal Bowel Sounds, Distended (firm), Mass, Other (Pleurx catheter in place) Extremity: Normal Inspection, Non Tender, Pedal Edema Skin: Warm/Dry, Pallor Neurologic/Psychiatric: Alert, Oriented x3, No Motor/Sensory Deficits, Normal Mood/Affect Allergies: Coded Allergies: aspirin (Verified Allergy, Unknown, 01/13/18) prochlorperazine (Verified Allergy, Unknown, 06/11/19) Tolerates Phenergan well Copy Copies To 1: HUY STONE MD Discharge Summary Date of Admission Oct 27, 2019 at 02:50 Date of Discharge Discharge Date: Nov 02, 2019 Discharge Time: 11:11 Admission Diagnosis Pancreatitis Consults/Procedures Consulations oncology Comfort Measures/ End of Life Care: Pallative Care Discharge Diagnosis Metastatic breast cancer, Malignant ascites, pancreatitis (1) Metastatic breast cancer Status: Acute (2) Intractable nausea and vomiting Status: Chronic (3) Pancreatitis Status: Resolved Qualifiers: Qualified Codes: K85.80 - Other acute pancreatitis without necrosis or infection (4) Ascites Status: Chronic Qualifiers: Qualified Codes: R18.0 - Malignant ascites Clinical Quality Measures DVT/VTE Risk/Contraindication: Risk Factor Score Per Nursin RFS Level Per Nursing on Admit: 2=Moderate TASHA SMITH MD Nov 02, 2019 11:10
[2019-11-02] MEDS: ENOXAPARIN 40 MG/0.4 ML (LOVENOX) SYR SC SCH (12:39)
[2019-11-02 14:03] VITALS: BP 97/64
--- NOTE | 2019-11-02 14:28 | NUR ---
Discharge instructions and orders faxed to [facility] for their followup care.
--- NOTE | 2019-11-04 16:54 | Physician Query Clarification ---
PQ-Uncertain Diagnosis Admission/Discharge Admission Date: Oct 27, 2019 at 02:50 Discharge Date: Nov 02, 2019 at 14:03 Dr. Smith, The medical record reflects the following clinical scenario: History/Risk Factors: metastatic breast CA w/peritoneal carcinomatosis, malignant ascites, bone mets, pancreatitis Clinical Findings: paracentesis fluid - staphylococcus epidermidis Treatment: IV Ceftriaxone, IV Piperacillin, PO Cefdinir Question: Is ?SBP(Spontaneous bacterial peritonitis) a clinically valid diagnosis? ?SBP was documented in the Dr. Gregory consult and PN's with no further documentation in the medical record or if the diagnosis was confirmed. Please document a response in Progress Note or Discharge Summary. 1. Yes, clinically valid, condition resolved. 2. No, condition ruled out. 3. Other, with explanation of clinical findings. 4. Undetermined, no explanation for clinical findings. PHYSICIAN RESPONSE Diagnosis clinically valid: Other, explanation/clinical finding Explanation of clincal finding Secondary bacterial peritonitis Please remember a lack of response to the above will prompt a phone page by CDI/Coding staff. In responding to this query, please exercise your independent professional judgment. The purpose of this communication is to more accurately reflect the complexity of your patients condition. The fact that a question is asked does not imply that any particular answer is desired or expected. Thank you for your timely response to this clarification. Requestors name: [email or web address] THIS PHYSICIAN QUERY FORM IS A PERMANENT PART OF THE MEDICAL RECORD JONN ALEXANDRA Nov 04, 2019 16:54 TASHA SMITH MD Nov 05, 2019 17:03
--- NOTE | 2019-11-04 17:03 | Physician Query Clarification ---
PQ-Further Specificity Admission/Discharge Admission Date: Oct 27, 2019 at 02:50 Discharge Date: Nov 02, 2019 at 14:03 Jenna, The medical record reflects the following clinical scenario: History/Risk Factors: metastatic breast ca w/peritoneal carcinomatosis, malignant ascites, bone mets, pancreatitis Clinical Findings: N/V, paracentesis fluid - staphylococcus epidermidis, abdominal pain, ascites Treatment: IVF, morphine, antimetics, bowel rest, IV Ceftriaxone, IV Piperacillin, PO Cefdinir Question: Can you further specify the etiology of the nausea and vomiting per the clinical indicators above? Please document a response in the Progress Notes or Discharge Summary. 1. malignant ascites d/t peritoneal carcinomatosis 2. spontaneous bacterial peritonitis 3. acute pancreatitis 4. n/v due to 1,2,3 above 5. Other, with explanation of the clinical findings. 6. Clinically undetermined, no explanation for the clinical findings. PHYSICIAN RESPONSE Can you specify per above: Other, explanation/clinical finding Explanation/Clinical Findings 4 Please remember a lack of response to the above will prompt a phone page by CDI/Coding staff. In responding to this query, please exercise your independent professional judgment. The purpose of this communication is to more accurately reflect the complexity of your patients condition. The fact that a question is asked does not imply that any particular answer is desired or expected. Thank you for your timely response to this clarification. Requestors name: [email or web address] THIS PHYSICIAN QUERY FORM IS A PERMANENT PART OF THE MEDICAL RECORD ZAYRA ALEXANDRA Nov 04, 2019 17:03 TASHA SMITH MD Nov 05, 2019 17:03
== END 2019-11-02 14:03 | disposition home health service (06) | DRG 374 ==
LOC: EDUNIT# 23:23 → ER 23:28 → 4TH 10-27 02:50
PROVIDERS: ADMIT Internal Medicine; ATTEND Internal Medicine
DX: C78.6 Secondary malignant neoplasm of retroperitoneum and peritoneum (principal); K85.90 Acute pancreatitis without necrosis or infection, unspecified; K65.2 Spontaneous bacterial peritonitis; R18.0 Malignant ascites; C79.51 Secondary malignant neoplasm of bone; E87.1 Hypo-osmolality and hyponatremia; D63.8 Anemia in other chronic diseases classified elsewhere; I10 Essential (primary) hypertension; J45.909 Unspecified asthma, uncomplicated; G62.9 Polyneuropathy, unspecified; K21.9 Gastro-esophageal reflux disease without esophagitis; E03.9 Hypothyroidism, unspecified; F90.9 Attention-deficit hyperactivity disorder, unspecified type; G47.9 Sleep disorder, unspecified; F32.9 Major depressive disorder, single episode, unspecified; E86.0 Dehydration; Z96.0 Presence of urogenital implants; Z85.3 Personal history of malignant neoplasm of breast; Z87.440 Personal history of urinary (tract) infections; B37.3 Candidiasis of vulva and vagina; T36.95XA Adverse effect of unspecified systemic antibiotic, initial encounter
CPT/HCPCS: 36415; 74177; 80048; 80053; 81000; 82150; 83690; 83735; 84145; 85007; 85025; 85027; 86850; 86900; 86901; 86920; 87040; 87070; 87077; 87088; 87186; 87205; 96374; 96375

== ENCOUNTER 2019-11-04 11:44 | Inpatient (IN) | payer MEDICARE, OTHER ==
[~2019-11-04] VITALS: Ht 165.1 cm; Wt 68.0 kg
[~2019-11-04 11:44] MED LIST changes: +ALPR0.25 PO; +ANAS1TAB50 PO; +MORP-68 PO
[2019-11-04] MEDS ORDERED: fentaNYL INJECTION 100 MCG/2 ML AMP IVP STA (12:14)
[2019-11-04] MEDS ORDERED: LACTATED RINGERS 1,000 ML IV STA (12:14)
[2019-11-04] MEDS ORDERED: ONDANSETRON 4 MG/2 ML (SDV) Z0FRAN IVP ONE ×2 (12:15→16:15)
--- NOTE | 2019-11-04 12:53 | ED Abdominal Pain ---
General Chief Complaint: Abdominal/GI Problems Stated Complaint: VOMITING;DEHYDRATION Nursing Triage Note: Pt c/o "horrible, sharp, stabbing abdominal pain. Pt eports buring with urination and constipation. Pt reports symptoms were present during last admission at hospital. Pt is a pt of Dr. Gregory. Sepsis Screen: No Definite Risk Source of Information: Patient Exam Limitations: No Limitations (TOM MCPHERSON MED STUDEN) History of Present Illness Date Seen by Provider: Nov 04, 2019 Time Seen by Provider: 11:19 Initial Comments This is a 59 y/o F w/ hx of Breast cancer w/ extensive ARMENTA who presents to the ED with sharp, stabbing epigastric pain rated 8/10 which is accompanied by N/V. States her abd pain radiates to her back. Pt also reports constipation, stating her last BM was 5 days ago; pt is unsure whether she has been passing gas or not. She has a history of recurrent SBO and ascites with a pleurodesis port in place; today she reports abd distension and mild SOB as well. She was admitted here on Oct 20 and Oct 26 for UTI and Pancreatitis plus intractable N/V respectively. States she was still having epigastric pain and nausea when she was discharged. She also still reports mild burning/pain with urination as well. States she has taken her pain meds, Morphine & Oxycodone this AM and has had some apple sauce. Pt sees Dr. Marc for oncology and her last Chemo was 2 months ago; reports she is supposed to start a new chemo regimen as soon as her UTI resolves. Pt has port in place but reports lately they have been having problem drawing blood from it but no problem giving meds through the port. No further complaints at this time. Timing/Duration: 1 Week Severity/Quality: Moderate Location: Epigastric Radiation: Back Activities at Onset: None Modifying Factors: Improves With Analgesics, Improves With Lying down; Worsens With Movement, Worsens With Palpation Associated Symptoms: No Chest Pain, No Diaphoresis, No Fever/Chills, No Headache; Nausea/Vomiting, Shortness of Air, Weakness, Other (abd distension) (TOM MCPHERSON MED STUDEN) Timing/Duration: 1 Week Severity/Quality: Moderate, Severe, Aching Location: LUQ, Epigastric Radiation: Back Modifying Factors: Improves With Analgesics Associated Symptoms: No Fever/Chills; Nausea/Vomiting; No Shortness of Air; Weakness (CADEN HARDIN MD) Allergies and Home Medications Allergies Coded Allergies: aspirin (Verified Allergy, Unknown, 01/13/18) prochlorperazine (Verified Allergy, Unknown, 06/11/19) Tolerates Phenergan well Home Medications Acetaminophen 500 Mg Tablet, 1,000 MG PO Q8H PRN for PAIN-MILD (1-4), (Reported) Alprazolam 0.25 Mg Tablet, 0.25 MG PO BID Prescribed by: TASHA SMITH on 11/02/19 1031 Anastrozole 1 Mg Tablet, 1 MG PO BID, (Reported) Cefdinir 300 Mg Capsule, 300 MG PO BID Prescribed by: TASHA SMITH on 11/02/19 1031 Dextroamphetamine/Amphetamine 30 Mg Cap.er.24h, 30 MG PO DAILY, (Reported) Diphenhydramine HCl 25 Mg Capsule, 50 MG PO Q4H PRN for ALLERGY SYMPTOMS, (Reported) Fluoxetine HCl 40 Mg Capsule, 40 MG PO DAILY, (Reported) Fluticasone Propionate 16 Gm [place].susp, 1 SPRAY NSEACH BID PRN for ALLERGY SYMPTOMS, (Reported) Gabapentin 300 Mg Capsule, 300 MG PO HS, (Reported) LAST FILLED 06-19-2019 #90 Ibuprofen 200 Mg Tablet, 400 MG PO Q8H PRN for PAIN-MILD (1-4), (Reported) Levothyroxine Sodium 25 Mcg Tablet, 25 MCG PO DAILY, (Reported) Lidocaine HCl 5 Ml Jel.pf.geni, 1 APPLIC UR TID PRN for SEVERE BLADDER PAIN, (Reported) USE 1 SYRINGE VIA URETHRA INTO BLADDER NEEDED FOR SEVERE BLADDER PAIN. Morphine Sulfate 15 Mg Tablet.er, 15 MG PO Q8 -12H, (Reported) Omeprazole 40 Mg Capsule.dr, 40 MG PO BID, (Reported) Oxycodone HCl/Acetaminophen 1 Each Tablet, 1-2 EACH PO Q8H PRN for PAIN-MODERATE (5-7), (Reported) Pseudoephedrine HCl 30 Mg Tablet, 30-60 MG PO Q4H PRN for CONGESTION, (Reported) Zolpidem Tartrate 12.5 Mg Tab.mphase, 12.5 MG PO HS, (Reported) Patient Home Medication List Home Medication List Reviewed: Yes (CADEN HARDIN MD) Review of Systems Review of Systems Constitutional: No chills, No diaphoresis, No fever EENTM: No Symptoms Reported Respiratory: Denies Cough, Denies Shortness of Air Cardiovascular: Denies Chest Pain, Denies Edema, Denies Palpitations Gastrointestinal: Abdominal Pain (epigastric pain), Constipated; Denies Difficulty Swallowing; Nausea, Vomiting Genitourinary: Burning; Denies Frequency, Denies Flank Pain, Denies Hematuria; Pain Musculoskeletal: no symptoms reported Skin: no symptoms reported Psychiatric/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: No Symptoms Reported (TOM MCPHERSON) All Other Systems Reviewed Negative Unless Noted: Yes (CADEN HARDIN MD) Past Hemaerm-Hbfjbd-Fsxxbp Hx Past Med/Social Hx: Reviewed Nursing Past Med/Soc Hx (CADEN HARDIN MD) Patient Social History Alcohol Use: Denies Use Recreational Drug Use: No 2nd Hand Smoke Exposure: No Recent Foreign Travel: No Contact w/Someone Who Travel: No Recent Infectious Disease Expo: No Recent Hopitalizations: Yes (TOM MCPHERSON) Immunizations Up To Date Tetanus Booster (TDap): Unknown PED Vaccines UTD: Yes (TOM MCPHERSON) Seasonal Allergies Seasonal Allergies: No (TOM MCPHERSON) Past Medical History Surgeries: Yes (LUMPECTOMY AND MASECTOMY WITH RECONSTRUCTION ON RIGHT;PLEUR-X DRAIN) Breast, Section, 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, Renal Respiratory: Yes Asthma Currently Using CPAP: No Currently Using BIPAP: No Cardiac: Yes Hypertension 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: Yes Neuropathy 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 ROUGHER History: 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 Genitourinary: Yes (possible left ureteral obstruction, ureteral stents) Bladder Infection Gastrointestinal: Yes (ascites, metastatic disease to omentum and peritoneum, chronic abd pain,n/v) Abdominal Hernia, Gastroesophageal Reflux, Gall Bladder Disease Musculoskeletal: Yes (metastases to bone) Endocrine: Yes Hypothyroidsim HEENT: No Cancer: Yes (METASTATIC BREAST CANCER TO BONE, PERITONEUM, OMENTUM) Breast Did You Recieve Any Treatments: Yes What Type of Treatment Did You: Chemotherapy, Surgical Intervention Psychosocial: Yes ADD/ADHD, Sleep Difficulties, Depression Integumentary: No Blood Disorders: No (TOM MCPHERSON Memonic CHRISTIANO) Family Medical History Reviewed Nursing Family Hx (CADEN HARDIN MD) Asthma 19 FATHER G8 BROTHER G8 SISTER Cardiovascular disease 19 MOTHER FH: skin cancer 19 FATHER G8 BROTHER Myocardial infarction G8 SISTER (X2) No Pertinent Family Hx PSH: -LEFT URETERAL STENT PLACED 05/25/19 -URETERAL STENT PLACED 10/18/19 IN [place] [facility] Physical Exam Vital Signs Vital Signs - First Documented 11/04/19 11:50 Temp 36.7 Pulse 127 Resp 22 B/P (MAP) 111/84 (93) Pulse Ox 96 O2 Delivery Room Air (CADEN HARDIN MD) Vital Signs Capillary Refill : Less Than 3 Seconds [facility] Height/Weight/BMI Height: '" Weight: lbs. oz. kg; 24.00 BMI Method: General Appearance: WD/WN, other (pt is tearful, alopecia associated with ch emotherapy, answers questions apropriately) HEENT: PERRL/EOMI, TMs normal, pharynx normal, other (DMM) Respiratory: chest non-tender, lungs clear, normal breath sounds Cardiovascular: regular rate, rhythm, no edema, no gallop, no JVD, tachycardia, other (port in place. R infraclavicular region) Gastrointestinal: distended; No guarding, No rebound; tenderness, other (decreased bowel sounds, nodularities noted diffusely to abd) Back: normal inspection, no CVA tenderness Neurologic/Psychiatric: alert, oriented x 3 Skin: warm/dry, pallor ([facility] General Appearance: mild distress (chronically ill), other (pt is tearful, alopecia associated with chemotherapy, answers questions apropriately, ) HEENT: PERRL/EOMI, pharynx normal Neck: full range of motion, supple Respiratory: lungs clear, normal breath sounds Cardiovascular: no murmur, tachycardia, other (port in place. R infraclavicular region) Gastrointestinal: non tender, distended, tenderness (diffuse but greatest in the upper middle and left) Extremities: non-tender, normal inspection Back: normal inspection, no CVA tenderness Neurologic/Psychiatric: alert, oriented x 3 Skin: warm/dry, pallor (CADEN HARDIN MD) Focused Exam Lactate Level 11/04/19 14:03: Lactic Acid Level 1.33 (CADEN HARDIN MD) Lactic Acid Level Laboratory Tests Test 11/04/19 14:03 Lactic Acid Level 1.33 MMOL/L (0.50-2.00) (CADEN HARDIN MD) Progress/Results/Core Measures Results/Orders Lab Results Laboratory Tests Test 11/04/19 13:22 11/04/19 14:03 11/04/19 14:20 Range/Units Urine Color NITIN H Urine Clarity CLOUDY Urine pH 5.5 5-9 Urine Specific [place] 1.025 H 1.016-1.022 Urine Protein 2+ H NEGATIVE Urine Glucose (UA) NEGATIVE NEGATIVE Urine Ketones 1+ H NEGATIVE Urine Nitrite POSITIVE H NEGATIVE Urine Bilirubin 2+ H NEGATIVE Urine Urobilinogen 1.0 < = 1.0 MG/DL Urine Leukocyte Esterase 1+ H NEGATIVE Urine RBC (Auto) 3+ H NEGATIVE Urine RBC 50-100 H /HPF Urine WBC 10-25 H /HPF Urine Squamous Epithelial Cells 2-5 /HPF Urine Crystals PRESENT H /LPF Urine Calcium Oxalate Crystals FEW H /LPF Urine Bacteria FEW H /HPF Urine Casts PRESENT /LPF Urine Hyaline Casts 5-10 H /LPF Urine Mucus NEGATIVE /LPF Urine Culture Indicated CULTURE PENDING White Blood Count 10.1 4.3-11.0 10^3/uL Red Blood Count 2.97 L 4.35-5.85 10^6/uL Hemoglobin 8.0 L 11.5-16.0 G/DL Hematocrit 27 L 35-52 % Mean Corpuscular Volume 90 80-99 FL Mean Corpuscular Hemoglobin 27 25-34 PG Mean Corpuscular Hemoglobin Concent 30 L 32-36 G/DL Red Cell Distribution Width 18.4 H 10.0-14.5 % Platelet Count 378 130-400 10^3/uL Mean Platelet Volume 9.0 7.4-10.4 FL Neutrophils (%) (Auto) 83 H 42-75 % Lymphocytes (%) (Auto) 8 L 12-44 % Monocytes (%) (Auto) 7 0-12 % Eosinophils (%) (Auto) 2 0-10 % Basophils (%) (Auto) 0 0-10 % Neutrophils # (Auto) 8.4 H 1.8-7.8 X 10^3 Lymphocytes # (Auto) 0.8 L 1.0-4.0 X 10^3 Monocytes # (Auto) 0.7 0.0-1.0 X 10^3 Eosinophils # (Auto) 0.2 0.0-0.3 10^3/uL Basophils # (Auto) 0.0 0.0-0.1 10^3/uL Sodium Level 129 L 135-145 MMOL/L Potassium Level 4.1 3.6-5.0 MMOL/L Chloride Level 101 98-107 MMOL/L Carbon Dioxide Level 17 L 21-32 MMOL/L Anion Gap 11 5-14 MMOL/L Creatinine 0.72 0.60-1.30 MG/DL Estimat Glomerular Filtration Rate > 60 Glucose Level 55 *L 70-105 MG/DL Lactic Acid Level 1.33 0.50-2.00 MMOL/L Calcium Level 9.1 8.5-10.1 MG/DL Corrected Calcium 10.5 H 8.5-10.1 MG/DL Total Bilirubin 0.2 0.1-1.0 MG/DL Aspartate Amino Transf (AST/SGOT) 31 5-34 U/L Alanine Aminotransferase (ALT/SGPT) 13 0-55 U/L Alkaline Phosphatase 667 H 40-136 U/L Total Protein 5.1 L 6.4-8.2 GM/DL Albumin 2.2 L 3.2-4.5 GM/DL Amylase Level 83 25-125 U/L Lipase 73 8-78 U/L Prothrombin Time 14.0 12.2-14.7 SEC INR Comment 1.0 0.8-1.4 Activated Partial Thromboplast Time 40 H 24-35 SEC (CADEN HARDIN MD) My Orders Orders - CADEN HARDIN MD Cbc With Automated Diff (11/04/19 12:14) Comprehensive Metabolic Panel (11/04/19 12:14) Blood Culture (11/04/19 12:14) Sputum Culture (11/04/19 12:14) Urinalysis (11/04/19 12:14) Urine Culture (11/04/19 12:14) Protime With Inr (11/04/19 12:14) Partial Thromboplastin Time (11/04/19 12:14) Chest 1 View, Ap/Pa Only (11/04/19 12:14) Ed Iv/Invasive Line Start (11/04/19 12:14) Vital Signs Adult Sepsis Patie Q15M (11/04/19 12:14) O2 (11/04/19 12:14) Remove Rings In Anticipation O (11/04/19 12:14) Lactic Acid Analyzer (11/04/19 12:14) Ondansetron Injection (Zofran Injectio (11/04/19 12:15) Lactated Ringers (Lr 1000 Ml Iv Solution (11/04/19 12:14) Fentanyl Injection (Sublimaze Injection (11/04/19 12:14) Amylase (11/04/19 12:14) Lipase (11/04/19 12:14) Ct Abdomen/Pelvis W (11/04/19 13:12) Iohexol Injection (Omnipaque 350 Mg/Ml 1 (11/04/19 13:30) Received Contrast (Hold Metformin- Contr (11/04/19 13:30) Sodium Chloride Flush (Catheter Flush Sy (11/04/19 13:30) Ns (Ivpb) (Sodium Chloride 0.9% Ivpb Bag (11/04/19 13:30) D50w (Emergency) Syringe (Dextrose 50% 5 (11/04/19 15:09) Piperacillin Sodium/Tazobactam (Zosyn Vi (11/04/19 15:30) Vancomycin Injection (Vancomycin Injecti (11/04/19 15:30) Body Fluid Culture (11/04/19 15:31) (CADEN HARDIN MD) Medications Given in ED Current Medications Medications Dose Ordered Sig/Ninfa Route Start Time Stop Time Status Last Admin Dose Admin Dextrose 50 ml STK-MED ONCE .ROUTE 11/04/19 15:09 11/04/19 15:13 DC 11/04/19 15:16 50 ML Iohexol 100 ml ONCE ONCE IV 11/04/19 13:30 11/04/19 13:31 DC 11/04/19 13:40 85 ML Ondansetron HCl 4 mg ONCE ONCE IVP 11/04/19 12:15 11/04/19 12:22 DC 11/04/19 12:58 4 MG Sodium Chloride 10 ml NEEDED PRN IV 11/04/19 13:30 11/04/19 13:40 10 ML Sodium Chloride 100 ml ONCE ONCE IV 11/04/19 13:30 11/04/19 13:31 DC 11/04/19 13:40 80 ML (CADEN HARDIN MD) Vital Signs/I&O 11/04/19 11:50 Temp 36.7 Pulse 127 Resp 22 B/P (MAP) 111/84 (93) Pulse Ox 96 O2 Delivery Room Air (CADEN HARDIN MD) Blood Pressure Mean: 93 Progress Progress Note : Time: 11:19 Progress Note Seen and evaluated. Pt has hx of metastatic breast cancer and recurrent ascites and SBO. Pt was admitted to the hospital on Oct 26 for pancreatis and intractable N/V. States her pain has not improved much since she was discharged. We will start a sepsis work up on her and will get CTAB w/ contrast and ABXR, CXR, amylase & lipase. Will give her 1L of LR, 4MG of Zofran and 75MCG of fentanyl for pain. Will continue to monitor as this time.@1559: Pt is feeling better after the D5 bolous, sitting up in bed and reading a book. Still complaining of 6/10 pain and is requesting pain meds. She is also requesting more nausea medication. Will order 4MG of zofran and 1MG of Hydromorphone. Will continue to monitor. ([facility] MCPHERSON [facility]) Progress Note : Progress Note I have seen and evaluated the patient and agree with above except as indicated. I have directed the plan of care. Patient is here with persistent nausea and vomiting as well as persistent upper abdominal pain. She does have long-standing ascites that is frequently drained through pleurodesis port. Denies current fever or chills. Unable to keep meds down at some points. States pain has persisted and vomiting has worsened since leaving the hospital a few days ago. Evaluation as above. Plan for IV via port access, labs, chest x-ray, CT abdomen and pelvis with contrast, LR 1 L bolus, Zofran 4 mg IV and fentanyl 75 g IV. Monitor patient. 1521: CT reviewed. I discussed the case with Dr. Gregory, patient's primary oncologist. Patient does have urinary tract infection and concerns for intra-abdominal infection. We will culture both urine and intra-abdominal fluid and initiate both Zosyn and vancomycin. I discussed the case with Dr. Smith, hospitalist on-call and he accepts patient for admission, inpatient status with oncology on consult. We are draining ascites fluid currently via pleurodesis strain and we'll send sample to lab for culture. Antibiotics to start after. Patient noted to have low blood sugar and was given D50 1 amp IV. Findings and concerns discussed with the patient who agrees with plan. (CADEN HARDIN MD) Diagnostic Imaging Diagonstic Imaging: Xray Plain Films/CT/US/NM/MRI: chest Comments [facility] [place], [place] NAME[facility] REC[facility] [id number] PT STATUS: REG ER : 1960 PHYSICIAN: CADEN HARDIN MD ADMIT DATE: 11/04/19/ER Draft Date of Exam:11/04/19 CHEST 1 VIEW, AP/PA ONLY INDICATION: Abdominal pain Portable chest obtained at 12:50 p.m. and compared to 09/21/2019. Heart is normal in size. Mediastinal silhouette is unremarkable. Port-A-Cath is unchanged compared to the prior study. The left lung is clear except for a stable calcified granuloma in the left base. There is a new area of infiltrate or atelectasis in the right base. There is no pneumothorax or pleural fluid collection IMPRESSION: New right basilar infiltrate versus atelectasis. No pneumothorax or gross pleural fluid. Dictated on workstation # [id number] Dict: 11/04/19 1304 Trans: 11/04/19 1307 [facility] [id number] Interpreted by: ANUP REYNOSO MD Electronically signed by: Diagonstic Imaging: CT Plain Films/CT/US/NM/MRI: abdomen, pelvis Comments [facility] [place], [place] NAME[facility] REC#: [id number] PT STATUS: REG ER : 1960 PHYSICIAN: CADEN HARDIN MD ADMIT DATE: 11/04/19/ER Signed Date of Exam:11/04/19 CT ABDOMEN/PELVIS W PROCEDURE: CT abdomen and pelvis with contrast. TECHNIQUE: Multiple contiguous axial images were obtained through the abdomen and pelvis after administration of intravenous contrast. Auto Exposure Controls were utilized during the CT exam to meet ALARA standards for radiation dose reduction. INDICATION: Abdominal pain, constipation, loss of appetite with bloating, history of metastatic breast cancer and pancreatitis. Compared with abdominal pelvic CT 10/27/2019. FINDINGS: There has been increased volume of abdominal pelvic peritoneal fluid with again noted thickened hyperenhancing peritoneum, raising the question of carcinomatosis versus peritonitis. There is an indwelling peritoneal drainage catheter correlate with its return. Once again note thickened hyperenhancing and hyperemic stomach, small and large bowel with wall thickening most notably at the level of the terminal ileum in the right lower quadrant, fluid and ingested material mildly distended stomach and there is some small bowel distention throughout the duodenal and proximal small bowel caliber maximal 3.8 cm, previously 3.1 cm mildly increased. The colon itself is not significantly distended. There is no free air. There is a left-sided double-J stent present with some chronic left renal atrophy there is no hydroureteronephrosis. Scattered hepatic cysts noted. There is atelectasis involving the right lung base. IMPRESSION: 1. Increased likely complex peritoneal fluid, infectious versus malignant with enhancing thickened peritoneal reflections. 2. Progressive small bowel dilatation with market thickening of multiple segments of small and large bowel, most severe at the ileocecal junction in the right lower quadrant, bowel wall thickening and mucosal hyperenhancement similar to the comparison although also likely at least mildly progressed. 3. Left renal atrophy without hydronephrosis. There are hepatic cysts noted, right basilar partial atelectasis. 4. Widespread bony metastatic disease again noted. Dictated by: Dictated on workstation # [id number] Dict: 11/04/19 1351 Trans: 11/04/19 1426 CVB [id number] Interpreted by: MASOOD EAST Electronically signed by: MASOOD EAST 11/04/19 9516 (CADEN HARDIN MD) Departure Communication (Admissions) Time/Spoke to Admitting Phy: 15:21 Time/Spoke to Consulting Phy: 15:10 (CADEN HARDIN MD) Impression Primary Impression: Urinary tract infection Qualified Codes: N30.00 - Acute cystitis without hematuria Additional Impressions: Intra-abdominal infection Metastatic breast cancer Disposition: ADMITTED INPATIENT Condition: Stable Admissions Decision to Admit Reason: Admit from ER (General) Decision to Admit/Date: Nov 04, 2019 Time/Decision to Admit Time: 15:10 (CADEN HARDIN MD) Departure-Patient Inst. Referrals: FADY HUFFMAN DO (PCP/Family) Primary Care Physician TOM MCPHERSON [facility] Nov 04, 2019 12:53 CADEN HARDIN MD Nov 04, 2019 13:36
--- NOTE | 2019-11-04 13:08 | Diagnostic Imaging Report ---
INDICATION: Abdominal pain Portable chest obtained at 12:50 p.m. and compared to 09/21/2019. Heart is normal in size. Mediastinal silhouette is unremarkable. Port-A-Cath is unchanged compared to the prior study. The left lung is clear except for a stable calcified granuloma in the left base. There is a new area of infiltrate or atelectasis in the right base. There is no pneumothorax or pleural fluid collection IMPRESSION: New right basilar infiltrate versus atelectasis. No pneumothorax or gross pleural fluid. Dictated by: Dictated on workstation # [id number]
[2019-11-04] MEDS ORDERED: IOHEXOL 350 MG/ML 100 ML (OMNIPAQUE 350) VIAL IV ONE (13:30)
[2019-11-04] MEDS ORDERED: CATHETER FLUSH 10 ML SYR IV PRN (13:30)
[2019-11-04] MEDS ORDERED: HOLD METFORMIN - RECEIVED CONTRAST 20 ML VIAL IV SCH (13:30)
[2019-11-04] MEDS ORDERED: NS 100 ML (IVPB) BAG IV ONE (13:30)
[2019-11-04 13:42] LABS: CLARITY,URINE CLOUDY; COLOR,URINE AMBER; GLUCOSE, URINE (UA) NEGATIVE (NEGATIVE); KETONES,URINE 1+ (NEGATIVE); LEUKOCYTE ESTERASE ,URINE 1+ (NEGATIVE); NITRITE,URINE POSITIVE (NEGATIVE); PH,URINE 5.5 (5-9); PROTEIN,URINE 2+ (NEGATIVE)
[2019-11-04 13:58] LABS: BILIRUBIN,URINE 2+ (NEGATIVE); RBC,URINE 50-100 /HPF
[2019-11-04 13:59] LABS: BACTERIA,URINE FEW /HPF; CALCIUM OXALATE CRYSTALS,UR FEW /LPF
--- NOTE | 2019-11-04 14:04 | Diagnostic Imaging Report ---
PROCEDURE: CT abdomen and pelvis with contrast. TECHNIQUE: Multiple contiguous axial images were obtained through the abdomen and pelvis after administration of intravenous contrast. Auto Exposure Controls were utilized during the CT exam to meet ALARA standards for radiation dose reduction. INDICATION: Abdominal pain, constipation, loss of appetite with bloating, history of metastatic breast cancer and pancreatitis. Compared with abdominal pelvic CT 10/27/2019. FINDINGS: There has been increased volume of abdominal pelvic peritoneal fluid with again noted thickened hyperenhancing peritoneum, raising the question of carcinomatosis versus peritonitis. There is an indwelling peritoneal drainage catheter correlate with its return. Once again note thickened hyperenhancing and hyperemic stomach, small and large bowel with wall thickening most notably at the level of the terminal ileum in the right lower quadrant, fluid and ingested material mildly distended stomach and there is some small bowel distention throughout the duodenal and proximal small bowel caliber maximal 3.8 cm, previously 3.1 cm mildly increased. The colon itself is not significantly distended. There is no free air. There is a left-sided double-J stent present with some chronic left renal atrophy there is no hydroureteronephrosis. Scattered hepatic cysts noted. There is atelectasis involving the right lung base. IMPRESSION: 1. Increased likely complex peritoneal fluid, infectious versus malignant with enhancing thickened peritoneal reflections. 2. Progressive small bowel dilatation with market thickening of multiple segments of small and large bowel, most severe at the ileocecal junction in the right lower quadrant, bowel wall thickening and mucosal hyperenhancement similar to the comparison although also likely at least mildly progressed. 3. Left renal atrophy without hydronephrosis. There are hepatic cysts noted, right basilar partial atelectasis. 4. Widespread bony metastatic disease again noted. Dictated by: Dictated on workstation # [id number]
[2019-11-04 14:21] LABS: BASOPHILS % (AUTO) 0 % (0-10); EOSINOPHILS # (AUTO) 0.2 10^3/uL (0.0-0.3); EOSINOPHILS % (AUTO) 2 % (0-10); HEMATOCRIT 27 % (35-52); LYMPHOCYTES # (AUTO) 0.8 X 10^3 (1.0-4.0); LYMPHOCYTES % (AUTO) 8 % (12-44); MEAN CORPUSCULAR HEMOGLOBIN 27 PG (25-34); MEAN CORPUSCULAR HGB CONC 30 G/DL (32-36); MEAN CORPUSCULAR VOLUME 90 FL (80-99); MONOCYTES # (AUTO) 0.7 X 10^3 (0.0-1.0); MONOCYTES % (AUTO) 7 % (0-12); NEUTROPHILS # (AUTO) 8.4 X 10^3 (1.8-7.8); NEUTROPHILS % (AUTO) 83 % (42-75); PLATELET COUNT 378 10^3/uL (130-400); RED CELL DISTRIBUTION WIDTH 18.4 % (10.0-14.5); WHITE BLOOD COUNT 10.1 10^3/uL (4.3-11.0)
--- NOTE | 2019-11-04 14:35 | NUR ---
Pt resting comfortably in bed at this time. Pt denies needs.
--- NOTE | 2019-11-04 14:38 | NUR ---
Spoke to pt's via phone at this time.
[2019-11-04 15:02] LABS: ALANINE AMINOTRANSFERASE 13 U/L (0-55); ALBUMIN 2.2 GM/DL (3.2-4.5); ALKALINE PHOSPHATASE 667 U/L (40-136); AMYLASE 83 U/L (25-125); BILIRUBIN,TOTAL 0.2 MG/DL (0.1-1.0); CALCIUM 9.1 MG/DL (8.5-10.1); CARBON DIOXIDE 17 MMOL/L (21-32); CHLORIDE 101 MMOL/L (98-107); CREATININE SERUM 0.72 MG/DL (0.60-1.30); GFR ESTIMATED > 60; LIPASE 73 U/L (8-78); POTASSIUM 4.1 MMOL/L (3.6-5.0); SODIUM 129 MMOL/L (135-145); TOTAL PROTEIN 5.1 GM/DL (6.4-8.2)
--- NOTE | 2019-11-04 15:08 | NUR ---
House sup called for bed at this time.
[2019-11-04] MEDS ORDERED: DEXTROSE 50% 50 ML (IMS) SYR ONE (15:09)
[2019-11-04 15:11] LABS: GLUCOSE 55 MG/DL (70-105)
[2019-11-04] MEDS ORDERED: PIPERACILLIN SODIUM/TAZOBACTAM 4.5 GM in NS (IVPB) 100 ML IV ONE (15:30)
[2019-11-04] MEDS ORDERED: VANCOMYCIN INJECTION 750 MG in NS (IVPB) 100 ML IV ONE (15:30)
--- NOTE | 2019-11-04 15:30 | NUR ---
1 L fluid drained from pt's peritoneal drain. Taken to lab by washhouse worker.
[2019-11-04 15:34] LABS: BUN/CREATININE RATIO 22
--- NOTE | 2019-11-04 15:43 | NUR ---
Spoke to pt's regarding admission plan.
--- NOTE | 2019-11-04 15:50 | NUR ---
Discussing admission with pt. Pt began crying stating pt did not want to be admitted to Dr. West. This nurse notified house supevisor.
--- NOTE | 2019-11-04 16:00 | NUR ---
Pt much more alert after D50. Pt sitting up in bed on phone.
--- NOTE | 2019-11-04 16:04 | NUR ---
Attempted to call to give report; no answer.
[2019-11-04] MEDS ORDERED: HYDROmorphone 2 MG/ML VIAL (DILAUDID) IV ONE (16:15)
--- NOTE | 2019-11-04 16:42 | Oncology Consultation ---
Visit Information Visit Information Date of Admission Nov 04, 2019 at 15:29 Attending Physician Tasha Smith MD Admitting Physician Rodrigue Orellana DO Chief Complaint Abdominal pain, nausea vomiting, UTI and dehydration Interval History Ms. Decker is a 59 year old white female well known to me for stage IV breast cancer with extensive bone mets and peritoneal carcinomatosis/ascites. She has been off chemotherapy due to infection/UTI and recent pancreatitis. She also had left hydronephrosis and s/p stent replacement by urologist Dr Frank a month ago. She was admitted 10/27/2019 with abdominal pain and significantly elevated amylase and lipase. She was treated with IVF, bowel rest and IV antibiotics Rocephine initially for 3 days and then changed to Zosyn IV according to the culture and sensitivity results of her peritoneal fluid. Her WBC was slightly elevated on that admission and then became normal but was up again to 18k on 11/02/2019 the day she was discharged home. When she got home, she had recurrence of nausea and vomiting. Her home health nurse called me and then sent her to ER for evaluation. This time, she had UTI again from ER evaluation. ? infection of her peritoneal fluid or combination of infection and cancer. Peritoneal fluid culture from last admission showed Staph epi and sensitive to Vanco and Clindamycine but NOT Zosyn. I consulted the patient on: 11/04/19 16:19 Time Seen by Provider: 16:42 Review of Systems Constitutional: weakness EENTM: no symptoms reported Respiratory: no symptoms reported Gastrointestinal: abdominal pain, nausea, vomiting Health Status Allergies Coded Allergies: aspirin (Verified Allergy, Unknown, 01/13/18) prochlorperazine (Verified Allergy, Unknown, 06/11/19) Tolerates Phenergan well Home Medications Acetaminophen (Tylenol Extra Strength) 500 Mg Tablet, 1,000 MG PO Q8H PRN for PAIN-MILD (1-4), (Reported) Alprazolam (Xanax) 0.25 Mg Tablet, 0.25 MG PO BID for 30 Days, #60 Ref 0 Prescribed by: TASHA SMITH on 11/02/19 1031 Anastrozole (Arimidex) 1 Mg Tablet, 1 MG PO BID, (Reported) Cefdinir (Cefdinir) 300 Mg Capsule, 300 MG PO BID for 7 Days, #14 Prescribed by: TASHA SMITH on 11/02/19 1031 Dextroamphetamine/Amphetamine (Dextroamp-Amphet ER 30 mg Cap) 30 Mg Cap.er.24h, 30 MG PO DAILY, (Reported) Diphenhydramine HCl (Benadryl) 25 Mg Capsule, 50 MG PO Q4H PRN for ALLERGY SYMPTOMS, (Reported) Fluoxetine HCl (Fluoxetine HCl) 40 Mg Capsule, 40 MG PO DAILY, (Reported) Fluticasone Propionate (Fluticasone Propionate) 16 Gm Norco.susp, 1 SPRAY NSEACH BID PRN for ALLERGY SYMPTOMS, (Reported) Gabapentin (Neurontin) 300 Mg Capsule, 300 MG PO HS, (Reported) LAST FILLED 06-19-2019 #90 Ibuprofen (Ibuprofen) 200 Mg Tablet, 400 MG PO Q8H PRN for PAIN-MILD (1-4), (Reported) Levothyroxine Sodium (Levothyroxine Sodium) 25 Mcg Tablet, 25 MCG PO DAILY, (Reported) Lidocaine HCl (Lidocaine HCl) 5 Ml Jel.pf.geni, 1 APPLIC UR TID PRN for SEVERE BLADDER PAIN, (Reported) USE 1 SYRINGE VIA URETHRA INTO BLADDER NEEDED FOR SEVERE BLADDER PAIN. Morphine Sulfate (Morphine Sulfate ER) 15 Mg Tablet.er, 15 MG PO Q8 -12H, (Reported) Omeprazole (Omeprazole) 40 Mg Capsule.dr, 40 MG PO BID, (Reported) Oxycodone HCl/Acetaminophen (Endocet 5-325 Tablet) 1 Each Tablet, 1-2 EACH PO Q8H PRN for PAIN-MODERATE (5-7), (Reported) Pseudoephedrine HCl (Sudafed) 30 Mg Tablet, 30-60 MG PO Q4H PRN for CONGESTION, (Reported) Zolpidem Tartrate (Zolpidem Tartrate ER) 12.5 Mg Tab.mphase, 12.5 MG PO HS, (Reported) BRX-Nkgkck-Bqqzog Hx Patient Social History Alcohol Use: Denies Use Recreational Drug Use: No 2nd Hand Smoke Exposure: No Recent Foreign Travel: No Contact w/other who traveled: No Recent Infectious Disease Expo: No Recent Hopitalizations: Yes Immunizations Up To Date Tetanus Booster (TDap): Unknown Family Medical History Significant Family History: No Pertinent Family Hx Family History: Asthma 19 FATHER G8 BROTHER G8 SISTER Cardiovascular disease 19 MOTHER FH: skin cancer 19 FATHER G8 BROTHER Myocardial infarction G8 SISTER (X2) Physical Exam Vital Signs Vital Signs - First Documented 11/04/19 11:50 Temp 36.7 Pulse 127 Resp 22 B/P (MAP) 111/84 (93) Pulse Ox 96 O2 Delivery Room Air Capillary Refill : Less Than 3 Seconds Height, Weight, BMI Height: '" Weight: lbs. oz. kg; 24.00 BMI Method: General Appearance: Chronically ill HEENT: PERRL/EOMI Respiratory: No Accessory Muscle Use, No Respiratory Distress Cardiovascular: Regular Rate, Rhythm, Tachycardia Gastrointestinal: Soft, Distended, Mass Extremity: Non Tender, No Calf Tenderness, No Pedal Edema Neurologic/Psychiatric: Alert, Oriented x3 Data Review Labs Laboratory Tests 11/08/19 04:08 Laboratory Tests 11/06/19 04:53: Sodium Level 131L, Carbon Dioxide Level 11L, Anion Gap 17H, Vancomycin Level Trough 28.6*H 11/06/19 17:20: Vancomycin Level Trough 21.4H 11/07/19 06:45: Sodium Level 132L, Carbon Dioxide Level 13L, Anion Gap 16H, White Blood Count 11.1H, Red Blood Count 2.87L, Hemoglobin 7.9L, Hematocrit 26L, Mean Corpuscular Hemoglobin Concent 30L, Red Cell Distribution Width 18.8H, Platelet Count 426H, Neutrophils (%) (Auto) 88H, Lymphocytes (%) (Auto) 7L, Neutrophils # (Auto) 9.8H , Lymphocytes # (Auto) 0.8L, Blood Urea Nitrogen 23H, Aspartate Amino Transf (AST/SGOT) 38H, Alkaline Phosphatase 1363H, Total Protein 5.5L, Albumin 2.3L 11/08/19 04:08: Sodium Level 132L, Carbon Dioxide Level 15L, Anion Gap 15H, Blood Urea Nitrogen 27H Impression & Plan Impression & Plan IMP: 1. Stage IV recurrence and metastatic breast cancer, extensive bone mets and peritoneal carcinomatosis. Last chemo over 8 weeks ago. Disease progressed. She was supposed to have a different chemotherapy last week but hold off due to pancreatitis. 2. Recurrent UTI. She might not be adequately treated from last admission. She only had 2 days of Zosyn and previous urine culture showed intermediate sensitive to Rocephin. 3. Recent pancreatitis. Pt had one episode of pancreatitis over 20 years ago without clear trigger factor. CT scan here did not show any lesions in the liver nor pancreas. However, she heard that her sister was diagnosed with breast cancer last weekend which caused her a lot of stress. Her amylase and lipase are back to normal now. 4. SBP, last peritoneal fluid culture showed Staph epi, ? contamination but the micro lab did feel it was good culture and abundance growth. They did a sensitivity. 5. Left hydronephrosis s/p stent replacement. 6. Blood culture and urine culture are negative growth last admission. Plan: 1. I discussed with ER Dr Zavala and decide to put her on Zosyn for UTI and Vanco for Staph epi SBP. 2. She will be admitted under five piece expansion maker hand hospitalist team. 3. IVF for dehydration. 4. Pain control. 5. I will f/u with you. 6. Hold off any cancer treatment for now. Thank you for consultation. HUY STONE MD Nov 04, 2019 16:42
[2019-11-04 16:45] VITALS: BP 101/73
[2019-11-04] MEDS ORDERED: VANCOMYCIN 1500 MG/NS 500 ML IVPB IV NR ×2 (17:00)
--- NOTE | 2019-11-04 17:11 | NUR ---
VANCOMYCIN DOSING: IBW 57 KG SCr 0.72 CrCl 75 LOADING DOSE: 1500 MG MAIN DOSE: 1,000 MG BID X 3 DAYS VANCOMYCIN TROUGH DUE 11/06/19 @ 04:00 IF TROUGH IS GREATER THAN 20 HOLD 11/06/19 05:00 DOSE Addendum: 11/06/19 at 0713 by GUERLINE WOLF RPH Trough = 28.6. Will repeat trough @ 1700. Addendum: 11/06/19 at 1430 by GUERLINE WOLF RPH PTD Vanco - 11/05 @ 05 trough result 28.6. Will repeat trough at 1700. IF resulting trough is LESS than 20, start 750mg every 12 hours. IF trough result is 20 or greater, continue to HOLD Vancomycin. Addendum: 11/07/19 at 0644 by GUERLINE WOLF RP 11/05 1700 trough 21.4, continue to hold Vancomycin. Repeat trough 729, 11/06. Addendum: 11/07/19 at 0755 by GUERLINE WOLF RP 11/06 REPEAT TROUGH: 16.8. Will resume Vancomycin @ 500mg every 12 hours.
--- NOTE | 2019-11-04 17:46 | NUR ---
Donita Decker admitted to room 405-1, with an admitting diagnosis of UTI , on 11/04/19 from ED, accompanied by .SUZIE DECKER introduced to surroundings, call light, bed controls, phone, TV, temperature control, lights, meal times, smoking policy, visitor policy, side rail policy, bathrooms and showers. Patient Rights given to patient in the handbook.SUZIE DECKER verbalizes understanding that [facility] is not responsible for the loss or damage to any personal effects or valuables that are kept in the patients posession during their hospitalization. Patient and/or family were informed about the Rapid Response Team and its purpose.
[2019-11-04] MEDS: LACTATED RINGERS 1,000 ML IV SCH (18:15)
[2019-11-04] MEDS: fentaNYL INJECTION 100 MCG/2 ML AMP IV PRN ×2 (18:21→22:27)
[2019-11-04] MEDS: ONDANSETRON 4 MG/2 ML (SDV) Z0FRAN IV PRN ×2 (18:22→22:41)
[2019-11-04 20:00] VITALS: BP 113/74
[2019-11-04] MEDS: PIPERACILLIN/TAZO 4.5 GM/NS 100 ML IV SCH ×2 (23:48)
[2019-11-05] VITALS: BP 113/74
[2019-11-05] MEDS: fentaNYL INJECTION 100 MCG/2 ML AMP IV PRN ×3 (03:38→18:11)
[2019-11-05 04:00] VITALS: BP 103/69
[2019-11-05] MEDS: VANCOMYCIN 1 GM/NS 250 ML IVPB IV SCH ×4 (06:04→17:17)
[2019-11-05] MEDS: PIPERACILLIN/TAZO 4.5 GM/NS 100 ML IV SCH ×6 (07:21→22:14)
[2019-11-05 07:24] LABS: BASOPHILS % (AUTO) 0 % (0-10); EOSINOPHILS # (AUTO) 0.2 10^3/uL (0.0-0.3); EOSINOPHILS % (AUTO) 2 % (0-10); HEMATOCRIT 29 % (35-52); HEMOGLOBIN 8.6 G/DL (11.5-16.0); LYMPHOCYTES # (AUTO) 0.9 X 10^3 (1.0-4.0); LYMPHOCYTES % (AUTO) 10 % (12-44); MEAN CORPUSCULAR HEMOGLOBIN 27 PG (25-34); MEAN CORPUSCULAR HGB CONC 30 G/DL (32-36); MEAN CORPUSCULAR VOLUME 90 FL (80-99); MEAN PLATELET VOLUME 9.2 FL (7.4-10.4); MONOCYTES # (AUTO) 0.8 X 10^3 (0.0-1.0); MONOCYTES % (AUTO) 8 % (0-12); NEUTROPHILS # (AUTO) 7.6 X 10^3 (1.8-7.8); NEUTROPHILS % (AUTO) 80 % (42-75); PLATELET COUNT 421 10^3/uL (130-400); RED CELL DISTRIBUTION WIDTH 18.6 % (10.0-14.5); WHITE BLOOD COUNT 9.5 10^3/uL (4.3-11.0)
[2019-11-05 07:49] LABS: ALANINE AMINOTRANSFERASE 15 U/L (0-55); ALBUMIN 2.3 GM/DL (3.2-4.5); ALKALINE PHOSPHATASE 1107 U/L (40-136); BILIRUBIN,TOTAL 0.3 MG/DL (0.1-1.0); BUN/CREATININE RATIO 19; CALCIUM 9.2 MG/DL (8.5-10.1); CARBON DIOXIDE 19 MMOL/L (21-32); CHLORIDE 100 MMOL/L (98-107); CREATININE SERUM 0.79 MG/DL (0.60-1.30); GFR ESTIMATED > 60; GLUCOSE 70 MG/DL (70-105); SODIUM 129 MMOL/L (135-145); TOTAL PROTEIN 5.6 GM/DL (6.4-8.2)
[2019-11-05 07:51] VITALS: BP 114/68
[2019-11-05] MEDS: ONDANSETRON 4 MG/2 ML (SDV) Z0FRAN IV PRN (10:23)
[2019-11-05] MEDS: morphine INJ 10 MG/ML 1ML (SYR OR VIAL) IVP PRN ×3 (10:49→23:20)
[2019-11-05] MEDS ORDERED: LORazepam INJ 2 MG/ML (ATIVAN) VIAL IVP PRN (11:00)
--- NOTE | 2019-11-05 11:25 | Oncology Progress Note ---
Subjective Date Seen by a Provider: Nov 05, 2019 Time Seen by a Provider: 10:00 Subjective/Events-last exam Still nausea and vomiting. Had a bowel movement this morning No fever " Fentanyl is not working. Morphine works better. " Data Review Labs Laboratory Tests 11/04/19 14:03 11/05/19 07:15 Laboratory Tests 11/04/19 13:22: Urine Color AMBERH, Urine Specific [place] 1.025H, Urine Protein 2+H, Urine Ketones 1+H, Urine Nitrite POSITIVEH, Urine Bilirubin 2+H, Urine Leukocyte Esterase 1+H, Urine RBC (Auto) 3+H, Urine RBC 50-100H, Urine WBC 10-25H, Urine Crystals PRESENTH, Urine Calcium Oxalate Crystals FEWH, Urine Bacteria FEWH, Urine Hyaline Casts 5-10H 11/04/19 14:03: Red Blood Count 2.97L, Hemoglobin 8.0L, Hematocrit 27L, Mean Corpuscular H emoglobin Concent 30L, Red Cell Distribution Width 18.4H, Neutrophils (%) (Auto) 83H, Lymphocytes (%) (Auto) 8L, Neutrophils # (Auto) 8.4H, Lymphocytes # (Auto) 0.8L, Sodium Level 129L, Carbon Dioxide Level 17L, Glucose Level 55*L, Corrected Calcium 10.5H, Alkaline Phosphatase 667H, Total Protein 5.1L, Albumin 2.2L 11/04/19 14:20: Activated Partial Thromboplast Time 40H 11/05/19 07:15: Red Blood Count 3.23L, Hemoglobin 8.6L, Hematocrit 29L, Mean Corpuscular Hemoglobin Concent 30L, Red Cell Distribution Width 18.6H, Neutrophils (%) (Auto) 80H, Lymphocytes (%) (Auto) 10L, Lymphocytes # (Auto) 0.9L, Sodium Level 129L, Carbon Dioxide Level 19L, Corrected Calcium 10.6H, Alkaline Phosphatase 1107H, Total Protein 5.6L, Albumin 2.3L, Platelet Count 421H, Aspartate Amino Transf (AST/SGOT) 38H Laboratory Tests 11/04/19 14:03 11/05/19 07:15 Physical Exam Vital Signs Vital Signs - First Documented 11/04/19 11:50 Temp 36.7 Pulse 127 Resp 22 B/P (MAP) 111/84 (93) Pulse Ox 96 O2 Delivery Room Air Capillary Refill : Less Than 3 Seconds Height, Weight, BMI Height: '" Weight: lbs. oz. kg; 24.94 BMI Method: General Appearance: Moderate Distress, Other (nausea and vomiting) HEENT: PERRL/EOMI Respiratory: No Accessory Muscle Use, No Respiratory Distress Cardiovascular: Regular Rate, Rhythm, Tachycardia Gastrointestinal: Soft, Distended, Tenderness, Other (palpable nodules) Extremity: Non Tender, No Calf Tenderness, No Pedal Edema Neurologic/Psychiatric: Alert, Oriented x3 Focused Exam Lactate Level 11/04/19 14:03: Lactic Acid Level 1.33 Impression & Plan Impression & Plan IMP: 1. Stage IV recurrence and metastatic breast cancer, extensive bone mets and peritoneal carcinomatosis. Last chemo over 8 weeks ago. Disease progressed. She was supposed to have a different chemotherapy last week but hold off due to pancreatitis. 2. Recurrent UTI. She might not be adequately treated from last admission. She only had 2 days of Zosyn and previous urine culture showed intermediate sensitive to Rocephin. 3. Recent pancreatitis. Pt had one episode of pancreatitis over 20 years ago without clear trigger factor. CT scan here did not show any lesions in the liver nor pancreas. However, she heard that her sister was diagnosed with breast cancer last weekend which caused her a lot of stress. Her amylase and lipase are back to normal now. 4. SBP, last peritoneal fluid culture showed Staph epi, ? contamination but the micro lab did feel it was good culture and abundance growth. They did a sensitivity. 5. Left hydronephrosis s/p stent replacement. 6. Blood culture and urine culture are negative growth last admission. Plan: 1. I discussed with Dr West this morning. We will aggressively treat infection with double antibiotic coverage IV. 2. I will add Decadron 4mg and Zofran 8mg IV bid to control nausea and vomiting. 3. IVF for dehydration. 4. Pain control. Change Fentanyl to morphine. 5. I will f/u with you. 6. Possible chemo next Friday. Clinical Quality Measures DVT/VTE Risk/Contraindication: Risk Factor Score Per Nursin RFS Level Per Nursing on Admit: 4+=Very High HUY STONE MD Nov 05, 2019 11:25
[2019-11-05 12:37] VITALS: BP 109/68
--- NOTE | 2019-11-05 13:23 | NUR ---
PALLIATIVE CARE RN in to see patient. She is sitting up in chair coloring with colored pencils. She looks better than on her previous admission. Less pale and miserable. She reports feeling okay now and that she is on bowel rest currently with CLD. I told her sometime lemon gtt help with dry mouth which she reports having and I have asked for Krystal TROY to bring her some from the [facility] At this time plan is treat the Peritonitis with IV ABX and then on Friday if she can tolerate...start her last option of Chemotherapy. Her spirits are high at this time.
--- NOTE | 2019-11-05 13:25 | NUR ---
RD ASSESSMENT PMHx: HTN; neuropathy; pancreatitis; GERD; CA(breast, mets-bone,peritoneum,omentum); hypothyroid PT INTERACTION: Pt was semi-awake during dietary consult for MST score. Note was present at bedside. states pt's current appetite is very poor. Note avg PO intake 25% x2meal, per chart review. Pt states recent issues with nausea, and constipation, and that she went about 6d without a BM. Note last BM was 11/04, and pt not currently on bowel regimen, per chart review. Note recent 11# wt loss x1mon, per chart review. Note this is significant wt loss at 7%. Upon visual assessment, pt shows the appearance of recent acute wt loss, with a BMI of 24.9 (Normal for age). Given PO intake, wt hx, and visual assessment, pt meets criteria for malnutrition per ASPEN guidelines. ABNORMAL NUTRITION-RELATED LAB VALUES LOW: Na 129; Pro 5.6; alb 2.3 HIGH: alkphos 1107; AST 38 Est. kcal needs: 2050 kcal | 30 kcal/kg Est. Pro needs: 82 g Pro | 1.2 g Pro/kg PES STATEMENT: Inadequate oral intake (NI-2.1) related to loss of appetite | nausea | vomiting | constipation as evidenced by pt () interview | avg PO intake 25% x2meal Chronic disease related malnutrition (NC-4.1.2) related to physiological causes resulting in anorexia or diminished intake as evidenced by unintentional wt loss (7% x1mon) | visual assessment | CA (stage IV breast; mets-bone|peritoneum|omentum INTERVENTION: Note pt is currently on ice chips only, per Dr. Carpenter. Note pt does not prefer Ensure Clear, d/t taste preference ("it tastes too sweet"). Will continue to follow and reassess as pt needs, intake, and status change. MONITOR/EVALUATE: PO Intake; Plan of Care; Hydration Status; Weight Status; Lab Values Abdoulaye Chacon, MS, RD, LD
[2019-11-05 16:00] VITALS: BP 105/64
[2019-11-05 19:43] VITALS: BP 122/71
--- NOTE | 2019-11-05 20:37 | History & Physical-Hospitalist ---
History of Present Illness HPI/Chief Complaint Macey Decker is an unfortunate 59 year old female with metastatic breast cancer who presented with nausea and vomiting. She was discharged earlier this week after a similar admission. She says she went home and was unable to hold down any food. She reports abdominal pain. She denies any fevers. She denies any shortness of breath or cough. She says she had a bowel movement this morning and she felt better afterward. She says she just feels tired. She slept at home but she still feels exhausted. We again discussed palliative care and hospice and she would like to discuss her options with Dr. Gregory. Source: patient Exam Limitations: no limitations Date Seen 11/05/19 Time Seen by a Provider: 09:05 Attending Physician Reyna Smith MD PCP Rodrigue Orellana DO Referring Physician Date of Admission Nov 04, 2019 at 15:29 Home Medications & Allergies Home Medications Reviewed patient Home Medication Reconciliation performed by pharmacy medication reconciliations computer support technician and/or nursing. Patients Allergies have been reviewed. Allergies Allergies Coded Allergies aspirin (Verified Allergy, Unknown, 01/13/18) prochlorperazine (Verified Allergy, Unknown, 06/11/19) Tolerates Phenergan well Past Riqgwlo-Znwlnw-Uwqdmh Hx Past Med/Social Hx: Reviewed Nursing Past Med/Soc Hx Patient Social History Alcohol Use: Denies Use Recreational Drug Use: No 2nd Hand Smoke Exposure: No Recent Foreign Travel: No Contact w/other who traveled: No Recent Hopitalizations: Yes Recent Infectious Disease Expo: No Immunizations Up To Date Tetanus Booster (TDap): Unknown Pediatric: Yes Seasonal Allergies Seasonal Allergies: No Past Medical History Surgeries: Breast, Section, 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, Renal Currently Using CPAP: No Currently Using BIPAP: No Cardiac: Hypertension 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: Neuropathy 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 Genitourinary: Bladder Infection Gastrointestinal: Abdominal Hernia, Gastroesophageal Reflux, Gall Bladder Disease Endocrine: Hypothyroidsim Cancer: Breast Did You Recieve Any Treatments: Yes What Type of Treatment Did You: Chemotherapy, Surgical Intervention Psychosocial: ADD/ADHD, Sleep Difficulties, Depression History of Blood Disorders: No Family History Reviewed Nursing Family Hx Asthma 19 FATHER G8 BROTHER G8 SISTER Cardiovascular disease 19 MOTHER FH: skin cancer 19 FATHER G8 BROTHER Myocardial infarction G8 SISTER (X2) No Pertinent Family Hx PSH: -LEFT URETERAL STENT PLACED 05/25/19 -URETERAL STENT PLACED 10/18/19 IN [place] Review of Systems Constitutional: malaise, weakness EENTM: no symptoms reported Respiratory: no symptoms reported Cardiovascular: no symptoms reported Gastrointestinal: abdominal pain, nausea, vomiting Genitourinary: no symptoms reported Musculoskeletal: no symptoms reported Skin: no symptoms reported Psychiatric/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: No Symptoms Reported Physical Exam Physical Exam Vital Signs Vital Signs - First Documented 11/04/19 11:50 Temp 36.7 Pulse 127 Resp 22 B/P (MAP) 111/84 (93) Pulse Ox 96 O2 Delivery Room Air Capillary Refill : Less Than 3 Seconds Height, Weight, BMI Height: '" Weight: lbs. oz. kg; 24.94 BMI Method: General Appearance: No Apparent Distress, WD/WN HEENT: PERRL/EOMI, Pharynx Normal, Other (thin hair) Neck: Normal Inspection, Supple Respiratory: Lungs Clear, Normal Breath Sounds, No Respiratory Distress Cardiovascular: Regular Rate, Rhythm, No Murmur Gastrointestinal: Normal Bowel Sounds, Distended, Mass, Tenderness Extremity: Normal Inspection, Non Tender, Pedal Edema Neurologic/Psychiatric: Alert, Oriented x3, No Motor/Sensory Deficits, Depressed Affect (tearful) Skin: Warm/Dry, Pallor Results Results/Procedures Labs Laboratory Tests 11/04/19 14:03 11/05/19 07:15 Patient resulted labs reviewed. Imaging: Reviewed Imaging Report Assessment/Plan Admission Diagnosis Secondary bacterial peritonitis Admission Status: Inpatient Order (span 2 midnights) Reason for Inpatient Admission: Peritonitis requiring IV antibiotics Assessment and Plan Secondary bacterial peritonitis Malignant ascites Intra-abdominal drain in place Metastatic breast cancer Intractable nausea and vomiting -Peritoneal fluid culture growing Staph epidermidis -Started on Vanc and Zosyn -IV fluids -Clear liquid diet -Pain regimen ordered -Antiemetics ordered -Adding Dexamethasone -Consult oncology, Dr. Gregory -Consult palliative care -Possible chemotherapy on Friday depending on clinical course DVT Prophylaxis: Lovenox Diagnosis/Problems Diagnosis/Problems (1) Bacterial peritonitis Status: Acute (2) Intra-abdominal infection Status: Acute (3) Malignant ascites Status: Chronic (4) Metastatic breast cancer Status: Acute Clinical Quality Measures DVT/VTE Risk/Contraindication: Risk Factor Score Per Nursin RFS Level Per Nursing on Admit: 4+=Very High REYNA SMITH MD Nov 05, 2019 20:37
[2019-11-05] MEDS: PROMETHAZINE INJ 25 MG/ML (PHENERGAN) AMP IVP SCH (20:45)
[2019-11-05] MEDS ORDERED: NON-FORMULARY MEDICATION 1 EA EA (Omeprazole 40 MG) PO SCH (21:00)
[2019-11-05] MEDS: ENOXAPARIN 40 MG/0.4 ML (LOVENOX) SYR SC SCH (22:14)
[2019-11-05] MEDS: ZOLPIDEM 5 MG (AMBIEN) TAB PO SCH (22:14)
[2019-11-05] MEDS: GABAPENTIN 300 MG (NEURONTIN) CAP PO SCH (22:14)
[2019-11-05] MEDS: morphine ER 15 MG (MS CONTIN) TAB PO SCH (22:14)
[2019-11-05] MEDS: ALPRAZolam 0.25 MG (XANAX) TAB PO SCH (22:14)
--- NOTE | 2019-11-05 22:30 | NUR ---
PT REPORTS SHE TOOK HER HOME MED ANASTROZOLE 1MG PO AT 2130. STATES THAT DR STONE SAID IT WAS OKAY FOR HER TO DO SO
[2019-11-06] VITALS: BP 108/79
[2019-11-06] MEDS: LACTATED RINGERS 1,000 ML IV SCH ×2 (01:36→09:00)
[2019-11-06] MEDS: PROMETHAZINE INJ 25 MG/ML (PHENERGAN) AMP IVP SCH ×4 (03:19→20:54)
[2019-11-06] MEDS: morphine INJ 10 MG/ML 1ML (SYR OR VIAL) IVP PRN ×2 (03:27→17:34)
[2019-11-06 04:00] VITALS: BP 111/71
[2019-11-06] MEDS ORDERED: TROUGH ORDER-PHARMACY XX NR ×2 (04:00→17:00)
[2019-11-06 05:37] LABS: BUN/CREATININE RATIO 20; CALCIUM 9.1 MG/DL (8.5-10.1); CARBON DIOXIDE 11 MMOL/L (21-32); CHLORIDE 103 MMOL/L (98-107); CREATININE SERUM 0.87 MG/DL (0.60-1.30); GFR ESTIMATED > 60; GLUCOSE 81 MG/DL (70-105); POTASSIUM 4.8 MMOL/L (3.6-5.0); SODIUM 131 MMOL/L (135-145)
[2019-11-06 05:42] LABS: VANCOMYCIN,TROUGH 28.6 UG/ML (10.0-20.0)
[2019-11-06] MEDS: VANCOMYCIN 1 GM/NS 250 ML IVPB IV SCH ×2 (05:43)
[2019-11-06] MEDS: PIPERACILLIN/TAZO 4.5 GM/NS 100 ML IV SCH ×4 (06:39→18:40)
[2019-11-06] MEDS: PANTOPRAZOLE 20 MG TABLET (PROTONIX) PO SCH ×2 (06:39→17:34)
[2019-11-06] MEDS: LEVOTHYROXINE 25 MCG (LEVOTHROID) TAB PO SCH (06:39)
[2019-11-06 07:53] VITALS: BP 103/59
[2019-11-06] MEDS: ALPRAZolam 0.25 MG (XANAX) TAB PO SCH ×2 (08:48→20:54)
[2019-11-06] MEDS: morphine ER 15 MG (MS CONTIN) TAB PO SCH ×2 (08:49→20:54)
[2019-11-06] MEDS: FLUoxetine HCL 20 MG (PROzac) CAP PO SCH (08:49)
[2019-11-06] MEDS ORDERED: AMPHETAMINE PO SCH (09:00)
[2019-11-06] MEDS ORDERED: [UNRECOGNIZED DRUG - OTHER] PO SCH (09:00)
[2019-11-06] MEDS ORDERED: DEXTROAMPHETAMINE PO SCH (09:00)
--- NOTE | 2019-11-06 12:23 | Progress Note - Hospitalist ---
Subjective HPI/CC On Admission Date Seen by Provider: Nov 06, 2019 Time Seen by Provider: 10:05 Macey Decker is an unfortunate 59 year old female with metastatic breast cancer who presented with nausea and vomiting. She was discharged earlier this week after a similar admission. She says she went home and was unable to hold down an y food. She reports abdominal pain. She denies any fevers. She denies any shortness of breath or cough. She says she had a bowel movement this morning and she felt better afterward. She says she just feels tired. She slept at home but she still feels exhausted. We again discussed palliative care and hospice and she would like to discuss her options with Dr. Gregory. Subjective/Events-last exam she reports feeling better today. She had one episode of nausea and vomiting. She continues to have abdominal pain. He denies any fevers or chills. She denies any shortness of breath. Focused Exam Lactate Level 11/04/19 14:03: Lactic Acid Level 1.33 Objective Exam Vital Signs Vital Signs Date Time Temp Pulse Resp B/P (MAP) Pulse Ox O2 Delivery O2 Flow Rate FiO2 11/06/19 07:53 36.3 82 16 103/59 (74) 96 Room Air Capillary Refill : Less Than 3 Seconds General Appearance: No Apparent Distress, Chronically ill Neck: Normal Inspection, Supple Respiratory: Lungs Clear, Normal Breath Sounds, No Respiratory Distress Cardiovascular: Regular Rate, Rhythm, No Murmur Gastrointestinal: Normal Bowel Sounds, Distended, Mass, Tenderness Extremity: Normal Inspection, Non Tender, Pedal Edema Neurologic/Psychiatric: Alert, Oriented x3, No Motor/Sensory Deficits, Depressed Affect Skin: Normal Color, Warm/Dry Results/Procedures Lab Laboratory Tests 11/06/19 04:53 Patient resulted labs reviewed. Imaging: Reviewed Imaging Report Assessment/Plan Assessment and Plan Assess & Plan/Chief Complaint Secondary bacterial peritonitis Malignant ascites Intra-abdominal drain in place Metastatic breast cancer Pain of metastatic malignancy Intractable nausea and vomiting -Peritoneal fluid culture growing Staph epidermidis -continue Vanc and Zosyn -IV fluids -Clear liquid diet -Pain regimen -Antiemetics -oncology consulted, Dr. Gregory -Possible chemotherapy on Friday depending on clinical course DVT Prophylaxis: Lovenox Diagnosis/Problems Diagnosis/Problems (1) Bacterial peritonitis Status: Acute (2) Intra-abdominal infection Status: Acute (3) Malignant ascites Status: Chronic (4) Metastatic breast cancer Status: Acute (5) Pain of metastatic malignancy Status: Acute Clinical Quality Measures DVT/VTE Risk/Contraindication: Risk Factor Score Per Nursin RFS Level Per Nursing on Admit: 4+=Very High TASHA SMITH MD Nov 06, 2019 12:23
[2019-11-06] MEDS ORDERED: ALTEPLASE 2 MG (CATHFLO) IV ONE (14:00)
--- NOTE | 2019-11-06 15:55 | NUR ---
Report from Halley JIMÉNEZ, will assume care of patient at this time.
[2019-11-06 16:00] VITALS: BP 103/64
[2019-11-06] MEDS: ONDANSETRON 4 MG/2 ML (SDV) Z0FRAN IV PRN (17:33)
[2019-11-06] MEDS: ENOXAPARIN 40 MG/0.4 ML (LOVENOX) SYR SC SCH (20:54)
[2019-11-06] MEDS: GABAPENTIN 300 MG (NEURONTIN) CAP PO SCH (20:54)
[2019-11-06] MEDS ORDERED: VANCOMYCIN 750 MG/NS 250 ML IVPB IV SCH ×2 (21:00)
--- NOTE | 2019-11-06 21:53 | NUR ---
PT ASKED TO HAVE HER PLEURX DRAINED AGAIN TONIGHT, STATES IT WAS DRAINED AT NOON, AND SHE USUALLY DRAINS IT TWICE A DAY AT HOME. DR SMITH NOTIFIED, SAID IT CAN BE DRAINED TONIGHT.
--- NOTE | 2019-11-06 22:20 | NUR ---
PLEURX DRAINED PER DR SMITH AT THIS TIME. 1000ML YELLOW FLUID DRAINED. PT TOLERATED WELL, STATES 'I CAN BREATHE BETTER ALREADY' WILL CONTINUE TO MONITOR
[2019-11-06 23:48] VITALS: BP 96/56
[2019-11-07] MEDS: ZOLPIDEM 5 MG (AMBIEN) TAB PO SCH (01:31)
[2019-11-07] MEDS: PROMETHAZINE INJ 25 MG/ML (PHENERGAN) AMP IVP SCH ×4 (02:47→21:56)
[2019-11-07] MEDS: PIPERACILLIN/TAZO 4.5 GM/NS 100 ML IV SCH ×6 (02:47→17:46)
[2019-11-07] MEDS: morphine INJ 10 MG/ML 1ML (SYR OR VIAL) IVP PRN ×3 (02:48→20:48)
[2019-11-07] MEDS: LACTATED RINGERS 1,000 ML IV SCH ×2 (02:54→13:36)
[2019-11-07] MEDS: ONDANSETRON 4 MG/2 ML (SDV) Z0FRAN IV PRN ×2 (04:47→20:47)
[2019-11-07 04:49] VITALS: BP 94/56
[2019-11-07] MEDS: PANTOPRAZOLE 20 MG TABLET (PROTONIX) PO SCH ×2 (06:23→15:52)
[2019-11-07] MEDS: LEVOTHYROXINE 25 MCG (LEVOTHROID) TAB PO SCH (06:23)
[2019-11-07 06:55] LABS: BASOPHILS % (AUTO) 0 % (0-10); EOSINOPHILS % (AUTO) 0 % (0-10); HEMATOCRIT 26 % (35-52); HEMOGLOBIN 7.9 G/DL (11.5-16.0); LYMPHOCYTES # (AUTO) 0.8 X 10^3 (1.0-4.0); LYMPHOCYTES % (AUTO) 7 % (12-44); MEAN CORPUSCULAR HEMOGLOBIN 28 PG (25-34); MEAN CORPUSCULAR HGB CONC 30 G/DL (32-36); MEAN CORPUSCULAR VOLUME 91 FL (80-99); MEAN PLATELET VOLUME 9.4 FL (7.4-10.4); MONOCYTES # (AUTO) 0.6 X 10^3 (0.0-1.0); MONOCYTES % (AUTO) 5 % (0-12); NEUTROPHILS # (AUTO) 9.8 X 10^3 (1.8-7.8); NEUTROPHILS % (AUTO) 88 % (42-75); PLATELET COUNT 426 10^3/uL (130-400); RED CELL DISTRIBUTION WIDTH 18.8 % (10.0-14.5); WHITE BLOOD COUNT 11.1 10^3/uL (4.3-11.0)
[2019-11-07 07:18] LABS: ALBUMIN 2.3 GM/DL (3.2-4.5); BILIRUBIN,DIRECT 0.1 MG/DL (0.0-0.3); BILIRUBIN,INDIRECT 0.1 MG/DL; BILIRUBIN,TOTAL 0.2 MG/DL (0.1-1.0); CALCIUM 8.5 MG/DL (8.5-10.1); CREATININE SERUM 1.1 MG/DL (0.60-1.30); POTASSIUM 4.8 MMOL/L (3.6-5.0); TOTAL PROTEIN 5.5 GM/DL (6.4-8.2)
[2019-11-07 07:19] VITALS: BP 99/61
[2019-11-07] MEDS ORDERED: TROUGH ORDER-PHARMACY XX NR (07:30)
[2019-11-07] MEDS: VANCOMYCIN 500 MG/NS 100 ML IVPB IV SCH ×4 (08:13→21:55)
[2019-11-07] MEDS: ALPRAZolam 0.25 MG (XANAX) TAB PO SCH ×2 (08:15→21:56)
[2019-11-07] MEDS: morphine ER 15 MG (MS CONTIN) TAB PO SCH ×2 (08:15→21:56)
[2019-11-07] MEDS: FLUoxetine HCL 20 MG (PROzac) CAP PO SCH (08:15)
[2019-11-07 11:29] VITALS: BP 112/67
[2019-11-07] MEDS ORDERED: PATIENT MAY USE OWN MED,SINGLE MED PO SCH (11:30)
--- NOTE | 2019-11-07 12:50 | Progress Note - Hospitalist ---
Subjective HPI/CC On Admission Date Seen by Provider: Nov 07, 2019 Time Seen by Provider: 10:40 Macey Decker is an unfortunate 59 year old female with metastatic breast cancer who presented with nausea and vomiting. She was discharged earlier this week after a similar admission. She says she went home and was unable to hold down an y food. She reports abdominal pain. She denies any fevers. She denies any shortness of breath or cough. She says she had a bowel movement this morning and she felt better afterward. She says she just feels tired. She slept at home but she still feels exhausted. We again discussed palliative care and hospice and she would like to discuss her options with Dr. Gregory. Subjective/Events-last exam she reports continued nausea. She might be feeling a little better. She continues to have abdominal pain. She is not eating or drinking very much. She is very concerned because she did not get her Arimidex this morning. Focused Exam Lactate Level 11/04/19 14:03: Lactic Acid Level 1.33 Objective Exam Vital Signs Vital Signs Date Time Temp Pulse Resp B/P (MAP) Pulse Ox O2 Delivery O2 Flow Rate FiO2 11/07/19 11:29 36.5 84 16 112/67 (82) 95 Room Air Capillary Refill : Less Than 3 Seconds General Appearance: No Apparent Distress, Chronically ill HEENT: Pharynx Normal, Other (thin hair) Respiratory: Lungs Clear, Normal Breath Sounds, No Respiratory Distress Cardiovascular: Regular Rate, Rhythm, No Murmur Gastrointestinal: Normal Bowel Sounds, Distended, Mass, Tenderness Extremity: Normal Inspection, Non Tender, Pedal Edema Neurologic/Psychiatric: Alert, Oriented x3, Depressed Affect Skin: Warm/Dry, Pallor Results/Procedures Lab Laboratory Tests 11/07/19 06:45 Patient resulted labs reviewed. Imaging: Reviewed Imaging Report Assessment/Plan Assessment and Plan Assess & Plan/Chief Complaint Secondary bacterial peritonitis Malignant ascites Intra-abdominal drain in place Metastatic breast cancer Pain of metastatic malignancy Intractable nausea and vomiting -Peritoneal fluid culture growing Staph epidermidis -continue Vanc and Zosyn -IV fluids -Clear liquid diet -Pain regimen -Antiemetics -continue Arimidex -oncology consulted, Dr. Gregory -Possible chemotherapy on Friday depending on clinical course DVT Prophylaxis: Lovenox Diagnosis/Problems Diagnosis/Problems (1) Bacterial peritonitis Status: Acute (2) Intra-abdominal infection Status: Acute (3) Malignant ascites Status: Chronic (4) Metastatic breast cancer Status: Acute (5) Pain of metastatic malignancy Status: Acute Clinical Quality Measures DVT/VTE Risk/Contraindication: Risk Factor Score Per Nursin RFS Level Per Nursing on Admit: 4+=Very High TASHA SMITH MD Nov 07, 2019 12:50
[2019-11-07 16:00] VITALS: BP 108/67
[2019-11-07 19:42] VITALS: BP 125/72
[2019-11-07] MEDS ORDERED: ANASTROZOLE 1 MG TAB (ARIMIDEX) PO SCH (21:00)
--- NOTE | 2019-11-07 21:40 | NUR ---
pt request to have pleurX drained, DR. wilson notified, ordered to drain it
[2019-11-07] MEDS: ANASTROZOLE 1 MG TAB (ARIMIDEX) PO SCH (21:55)
[2019-11-07] MEDS: ENOXAPARIN 40 MG/0.4 ML (LOVENOX) SYR SC SCH (21:56)
[2019-11-07] MEDS: GABAPENTIN 300 MG (NEURONTIN) CAP PO SCH (21:56)
--- NOTE | 2019-11-07 23:00 | NUR ---
1000ML YELLOW FLUID DRAINED FROM PLEURX, PT TOLERATED WELL, WILL CONTINUE TO MONITOR
[2019-11-08 00:10] VITALS: BP 100/66
[2019-11-08] MEDS: ZOLPIDEM 5 MG (AMBIEN) TAB PO SCH (00:13)
[2019-11-08] MEDS: PIPERACILLIN/TAZO 4.5 GM/NS 100 ML IV SCH ×2 (02:44)
[2019-11-08] MEDS: PROMETHAZINE INJ 25 MG/ML (PHENERGAN) AMP IVP SCH ×2 (04:17→09:08)
[2019-11-08] MEDS: morphine INJ 10 MG/ML 1ML (SYR OR VIAL) IVP PRN ×2 (04:17→06:41)
[2019-11-08 04:32] VITALS: BP 102/67
[2019-11-08 05:20] LABS: CALCIUM 8.7 MG/DL (8.5-10.1); CREATININE SERUM 1.22 MG/DL (0.60-1.30); POTASSIUM 4.6 MMOL/L (3.6-5.0)
[2019-11-08] MEDS: LEVOTHYROXINE 25 MCG (LEVOTHROID) TAB PO SCH (06:33)
[2019-11-08] MEDS: LACTATED RINGERS 1,000 ML IV SCH (06:33)
[2019-11-08] MEDS: PANTOPRAZOLE 20 MG TABLET (PROTONIX) PO SCH (06:33)
[2019-11-08 07:44] VITALS: BP 107/71
[2019-11-08] MEDS: VANCOMYCIN 500 MG/NS 100 ML IVPB IV SCH ×2 (09:05)
[2019-11-08] MEDS: morphine ER 15 MG (MS CONTIN) TAB PO SCH (09:08)
[2019-11-08] MEDS: ALPRAZolam 0.25 MG (XANAX) TAB PO SCH (09:09)
[2019-11-08] MEDS: ANASTROZOLE 1 MG TAB (ARIMIDEX) PO SCH (09:09)
[2019-11-08] MEDS: FLUoxetine HCL 20 MG (PROzac) CAP PO SCH (09:22)
--- NOTE | 2019-11-08 10:10 | NUR ---
PALLIATIVE CARE RN in to see patient and talk with . Patient needed to get up to the bathroom and did well with SBA and use of the IV pole. In talking with it is learned that patient is not aware of the discussion he had with Casper Gregory. He indicated that she will "not take this well". He is waiting for the patient to fall back to sleep before he calls the daughters to discuss the options. Patient is pale, less active than I saw on Friday but does not appear to be imminently dying at time. Will continue to monitor for needs and assist with discharge plans as is needed.
--- NOTE | 2019-11-08 10:14 | NUR ---
Patient ambulated to bathroom and back to bed. Patient is tearful and reports a feeling of "panic" and requests anxiety medication. PRN ativan given.
--- NOTE | 2019-11-08 10:19 | Oncology Progress Note ---
Subjective Date Seen by a Provider: Nov 08, 2019 Time Seen by a Provider: 10:14 Subjective/Events-last exam Pt is lethargic and appears into dying process. She is in peaceful sleep. is around her. I discussed with him about their plan for the . He will need to discuss with their daughters and then get back to me. We will continue antibiotics and comfort care for now until family comes up a plan. Stop lab draw. Data Review Labs Laboratory Tests 11/08/19 04:08 Laboratory Tests 11/06/19 04:53: Sodium Level 131L, Carbon Dioxide Level 11L, Anion Gap 17H, Vancomycin Level Trough 28.6*H 11/06/19 17:20: Vancomycin Level Trough 21.4H 11/07/19 06:45: Sodium Level 132L, Carbon Dioxide Level 13L, Anion Gap 16H, White Blood Count 11.1H, Red Blood Count 2.87L, Hemoglobin 7.9L, Hematocrit 26L, Mean Corpuscular Hemoglobin Concent 30L, Red Cell Distribution Width 18.8H, Platelet Count 426H, Neutrophils (%) (Auto) 88H, Lymphocytes (%) (Auto) 7L, Neutrophils # (Auto) 9.8H , Lymphocytes # (Auto) 0.8L, Blood Urea Nitrogen 23H, Aspartate Amino Transf (AST/SGOT) 38H, Alkaline Phosphatase 1363H, Total Protein 5.5L, Albumin 2.3L 11/08/19 04:08: Sodium Level 132L, Carbon Dioxide Level 15L, Anion Gap 15H, Blood Urea Nitrogen 27H Physical Exam Vital Signs Vital Signs - First Documented 11/04/19 11:50 Temp 36.7 Pulse 127 Resp 22 B/P (MAP) 111/84 (93) Pulse Ox 96 O2 Delivery Room Air Capillary Refill : Less Than 3 Seconds Height, Weight, BMI Height: '" Weight: lbs. oz. kg; 24.94 BMI Method: General Appearance: Other (peacefully sleeping, not response to questions) Impression & Plan Impression & Plan IMP: 1. Stage IV recurrence and metastatic breast cancer, extensive bone mets and peritoneal carcinomatosis. Last chemo over 8 weeks ago. Disease progressed and now in transition to dying. 2. Recurrent UTI. She might not be adequately treated from last admission. She only had 2 days of Zosyn and previous urine culture showed intermediate sensitive to Rocephin. 3. Recent pancreatitis. Pt had one episode of pancreatitis over 20 years ago without clear trigger factor. CT scan here did not show any lesions in the liver nor pancreas. However, she heard that her sister was diagnosed with breast ca ncer last weekend which caused her a lot of stress. Her amylase and lipase are back to normal now. 4. SBP, last peritoneal fluid culture showed Staph epi, ? contamination but the micro lab did feel it was good culture and abundance growth. They did a sensitivity. 5. Left hydronephrosis s/p stent replacement. 6. Blood culture and urine culture are negative growth last admission. Plan: 1. I discussed with her about the her dying. He will need to discuss with his daughters and get back to me about their plan of the terminal care. 2. Pt is DNR Clinical Quality Measures DVT/VTE Risk/Contraindication: Risk Factor Score Per Nursin RFS Level Per Nursing on Admit: 4+=Very High HUY STONE MD Nov 08, 2019 10:19
--- NOTE | 2019-11-08 11:24 | NUR ---
DISCHARGE PLANNING: DR. Gregory did come back up to talk to patient but she did not wake up for her. Decision is to go home with [facility] tomorrow if she has no further decline. Krystal TROY is working on the [facility] discharge. I will be happy to assist as needed.
--- NOTE | 2019-11-08 11:32 | NUR ---
Health Care Analyst responded to PC referral and visited with Dani as pt slept. dani states he would notify their chainstitch felled seam operator at [facility]. he also mentioned two dtrs and plans to get pt home where she can be with more family. Health Care Analyst offered prayer and blessing.
--- NOTE | 2019-11-08 11:49 | NUR ---
Met with pt's elise Louise, Dr. Arteaga, and Brandon Rich.compounding and finishing supervisorCreative Arts Music Therapist to discuss continued care plans and transition to Hospice care. Plans tentatively made for discharge tomorrow with referral to [facility]. The past 6 months pt has been followed by [facility] and family requesting transition to their hospice. Medical reports and medication list faxed to [facility] with request for hospital bed and bedside commode and discharge likely tomorrow. Pt has two daughters one is a medical center representative at [address] and the other daughter is flying in and should arrive tomorrow.Pt's very supportive and concerned how their daughters will cope with the end stage illness of their mother. Will follow and Natty Rich RN will be assisting with discharge plans tomorrow.
--- NOTE | 2019-11-08 12:36 | Progress Note - Hospitalist ---
Subjective HPI/CC On Admission Date Seen by Provider: Nov 08, 2019 Time Seen by Provider: 12:33 Macey Decker is an unfortunate 59 year old female with metastatic breast cancer who presented with nausea and vomiting. She was discharged earlier this week after a similar admission. She says she went home and was unable to hold down an y food. She reports abdominal pain. She denies any fevers. She denies any shortness of breath or cough. She says she had a bowel movement this morning and she felt better afterward. She says she just feels tired. She slept at home but she still feels exhausted. We again discussed palliative care and hospice and she would like to discuss her options with Dr. Gregory. Subjective/Events-last exam Pt asleep. Briefly opens eyes to verbal stimuli but then falls back asleep. and bedside and plan to DC home with hospice if able. Objective Exam Vital Signs Vital Signs Date Time Temp Pulse Resp B/P (MAP) Pulse Ox O2 Delivery O2 Flow Rate FiO2 11/08/19 08:00 Room Air 11/08/19 07:44 36.3 76 16 107/71 (83) 96 Capillary Refill : Less Than 3 Seconds General Appearance: Chronically ill, Cachetic Respiratory: No Accessory Muscle Use Gastrointestinal: Distended Neurologic/Psychiatric: Other (arouses to verbal stimuli only) Skin: Pallor Results/Procedures Lab Laboratory Tests 11/08/19 04:08 Patient resulted labs reviewed. Imaging: Reviewed Imaging Report Assessment/Plan Assessment and Plan Assess & Plan/Chief Complaint Secondary bacterial peritonitis Malignant ascites Intra-abdominal drain in place Metastatic breast cancer Pain of metastatic malignancy Intractable nausea and vomiting - Appears to be actively dying- family has elected comfort measures only -IV fluids for now -Clear liquid diet -Pain regimen -Antiemetics -oncology consulted, Dr. Gregory -Will arrange hospice at home with [facility] and plan to discharge tomorrow if stable enough for transport Clinical Quality Measures DVT/VTE Risk/Contraindication: Risk Factor Score Per Nursin RFS Level Per Nursing on Admit: 4+=Very High ZAIN LANDRUM MD Nov 08, 2019 12:36
[2019-11-08] MEDS ORDERED: LORA2ORA PO (12:38)
[2019-11-08] MEDS ORDERED: MORP20SO PO (12:38)
--- NOTE | 2019-11-08 16:17 | NUR ---
Pt requesting to be discharged home tonight as doesn't want to wait till tomorrow. There are other [facility] and pt wants to be home to see her 22 [address] Arteaga and Dr. Gregory both agreeable with discharge today. [facility] notified and they will meet with pt and family upon their arrival home in [place], [place]. Pt's will notify Hospice Nurse lEvia Ochoa of their time of departure from hospital and Hospice nurse will assess pt needs during today's home visit. Pt's manager division and Brandon Rich RN, Palliative Care Nurse provided support and participated in discharge plan. Faxed discharge instructions to hospice.
== END 2019-11-08 16:30 | disposition hospice, home (50) | DRG 372 ==
LOC: EDUNIT# 11:44 → ER 11:48 → 4TH 15:29
PROVIDERS: ADMIT Internal Medicine; ATTEND Internal Medicine
DX: K65.2 Spontaneous bacterial peritonitis (principal); N39.0 Urinary tract infection, site not specified; C79.51 Secondary malignant neoplasm of bone; C78.6 Secondary malignant neoplasm of retroperitoneum and peritoneum; R18.0 Malignant ascites; N13.30 Unspecified hydronephrosis; E86.0 Dehydration; Z66 Do not resuscitate; Z51.5 Encounter for palliative care; K59.00 Constipation, unspecified; J45.909 Unspecified asthma, uncomplicated; I10 Essential (primary) hypertension; G62.9 Polyneuropathy, unspecified; K21.9 Gastro-esophageal reflux disease without esophagitis; E03.9 Hypothyroidism, unspecified; F90.9 Attention-deficit hyperactivity disorder, unspecified type; F32.9 Major depressive disorder, single episode, unspecified; B95.7 Other staphylococcus as the cause of diseases classified elsewhere; Z85.3 Personal history of malignant neoplasm of breast; Z90.11 Acquired absence of right breast and nipple; Z90.710 Acquired absence of both cervix and uterus
CPT/HCPCS: 36415; 71045; 74177; 80048; 80053; 80076; 80202; 81000; 82150; 83605; 83690; 85025; 85610; 85730; 87040; 87070; 87077; 87088; 87186; 87205; 96361; 96365; 96375